=== PATIENT | female | born 1935 | race Caucasian/White ===

== ENCOUNTER 2017-10-03 09:30 | Outpatient (RCR) | payer MEDICARE, SELFPAY ==
[2017-09-26 10:22] VITALS: BP 144/84; PULSE 54; RESP 16; TEMP 37.1; BMI 22.4
--- NOTE | 2017-09-26 12:28 | PCM.WC.HP ---
(1) Traumatic open wound of left lower leg with delayed healing Status: Acute Current Visit: Yes Code(s): S81.802D - Unspecified open wound, left lower leg, subsequent encounter (2) Traumatic open wound of left lower leg with infection Status: Acute Current Visit: Yes Code(s): S81.802A - Unspecified open wound, left lower leg, initial encounter; L08.9 - Local infection of the skin and subcutaneous tissue, unspecified History of Present Illness Date of Service: 09/26/17 Chief Complaint: Follow-up left lower leg nonhealing ulcer from a fall, August 19. 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 L2 get down off the ladder and missed the last rung coming down on her left archer causing a huge avulsion laceration. Patient was seen by her family doctor and was put on Levaquin which she has finished and not really putting anything on the ulcer but a Band-Aid most of it is healed but the bottom half of the ulcer has not. Past Medical History Past Medical History: History of DVTs hypothyroidism hyperlipidemia insomnia D deficiency open ulcer left archer nonhealing Allergies/Adverse Reactions: Allergies No Known Allergies Allergy (Verified 04/23/17 02:39) Home Medications: Ambulatory Orders Medication Instructions Recorded Hydroxychloroquine [Plaquenil] 200 mg PO DAILYCM 07/23/13 Levothyroxine [Synthroid] 75 mcg PO DAILY 07/23/13 Pravastatin [Pravachol] 40 mg PO DAILY 07/23/13 Zolpidem Tartrate [Ambien] 5 mg PO DAILY PRN 07/23/13 Amlodipine [Norvasc] 5 mg PO DAILY 02/10/14 Calcium Carbonate/Vitamin D3 1 each PO DAILY 02/10/14 [Calcium 500-Vit D3 400 Tablet] Cholecalciferol (Vitamin D3) 5,000 unit PO DAILY 02/10/14 [Vitamin D3] Cyanocobalamin [Vitamin B12] 1,000 mcg PO DAILY@0800 02/10/14 Aspirin 325 mg PO BIDCM #60 tablet 02/23/14 Alendronate Sodium [Fosamax] 70 mg PO QWEEK 04/23/17 Biotin 5,000 mcg PO DAILY 04/23/17 Lives: Alone Smoking Status: Never smoker Tobacco Use: Non-smoker Alcohol: None Drugs: None Review of Systems Constitutional: Denies: Chills, Fever Eyes: Denies: Blurred vision, Drainage, Pain HEENT: Denies: Difficulty Hearing, Difficulty Swallowing, Sore Throat, Visual Changes Cardiovascular: Denies: Chest Pain, Palpitations, Syncope Respiratory: Denies: Cough, Shortness of Breath Gastrointestinal: Denies: Abdominal Pain, Nausea, Vomiting Genitourinary: Denies: Dysuria, Frequency Musculoskeletal: Denies: Joint Pain, Muscle pain Skin: Reports: - - Open wound left archer. Denies: Jaundice, Rash Neurological: Denies: Balance problems, Change in Speech, Difficulty swallowing, Focal weakness Psychiatric: Denies: Anxiety, Depression Endocrine: Denies: Change in Body Habitus Hematologic/ Lymphatic: Denies: Adenopathy - Physical Exam Vital Signs Temp Pulse Resp BP 98.8 F 54 L 16 144/84 H 09/26/17 10:22 09/26/17 10:22 09/26/17 10:22 09/26/17 10:22 General: Oriented x3, Cooperative, Well developed HEENT: Atraumatic, PERRLA Oral: Moist Mucosa Neck: Supple, No JVD Lungs: Clear to auscultation, Normal air movement Cardiovascular: Regular rate, Regular Rhythm Abdomen: Bowel Sounds Present, Soft, Non Tender, No Hepato-splenomegaly Extremities: No clubbing, No edema, - - Open ulcer left archer Wound Measurements and Assessment WC - Nurse 1 - General Ulcer Measurement Start: 09/26/17 09:47 Freq: Status: Active Protocol: Activity Type Activity Date Activity User E-Sign Co-Sign Detail Recorded Client Recorded Date Recorded By Document 09/26/17 10:22 DV [id number] 09/26/17 10:52 DV 09/26/17 10:22 Wound Center Nurse 1 [Ulcer Assessment Protocol: WC.WD.LOC] #1 Left Archer -Combined with other wound No -Current Size (cm) - Length 3.2 -Current Size (cm) - Width 1.4 -Current Size (cm) - Depth 0.1 -Total Square Cm 4.48 -Date of Last Picture (Recall this 09/26/17 field) -Photo Taken Yes -Epithelialization None Present -Tunneling No -Undermining/Tunneling No -Circular Undermining No -Classification - Thickness Full Thickness without Exposed Support Structure -Exudate Amt None Present (0 %) -Wound Margin Distinct, Outline Attached -Granulation Amt None Present (0 %) -Granulation Quality N/A -Slough/Fibrin Yes -Necrosis Amt Large (67-100%) -Necrotic Tissue Type Adherent Slough -Structure Exposed None/Limited to Skin Breakdown -Texture (Jennifer-wound Skin Appearance) No Abnormality Assessed -Moisture (Jennifer-wound Skin Appearance No Abnormality ) Assessed -Color (Jennifer-wound Skin Appearance) No Abnormality Assessed -Temperature (Jennifer-wound Skin No Abnormality Appearance) (Pt Warm) -Tenderness on Palpation (Jennifer-wound No Skin Appearance) -Ulcer Cleansing Rinsed/ Irrigated with Saline -Foul Odor after Cleansing No -Anesthetic Used 4% Lidocaine Solution [Edema Assessment] -Lower Limb Edema Present No -Right Calf (cm) 31.6 -Right Ankle (cm) 18.0 -Left Calf (cm) 32.2 -Left Ankle (cm) 18.0 WC - Nurse 2 - General Ulcer CM Notes Start: 09/26/17 09:47 Freq: Status: Active Protocol: Activity Type Activity Date Activity User E-Sign Co-Sign Detail Recorded Client Recorded Date Recorded By Document 09/26/17 11:07 MW [id number] 09/26/17 11:14 MW 09/26/17 11:07 Wound Center Nurse 2 [Procedure/Treatment] #1 Left Archer -Time 11:07 -Correct Patient Yes -Correct Side, Site, Position Yes -Correct Procedure Yes -Procedure Performed Yes -Type of Procedure Debridement -Clinical Debridement Subcutaneous -Post Debridement Size (cm) - Length 3.0 -Post Debridement Size (cm) - Width 1.2 -Post Debridement Size (cm) - Depth 0.1 -Total Square Cm 3.60 -Wound/Ulcer Outcome Not Healed -Ulcer Cleansing Rinsed/ Irrigated with Saline -Foul Odor after Cleansing No -Bioengineered Tissue No -Cetacaine [place] No -Bleeding Controlled with Pressure -Treatment Response Procedure Tolerated Well [See Physician Procedure note for Specifics] Pain Scale: 0-10 Numeric [Pain] -Is Patient Pain Free? Yes Musculoskeletal: No Tenderness to Palpation of Joints or Extremities Lymphatic: No Cervical, Supraclavicular, or Inguinal Adenopathy Neurological: Cranial nerves II-XII grossly intact, Neuro grossly intact Psych/Mental Status: Normal Affect, Appropriate, Alert and oriented to time, place, person, mood and affect Debridement Note Post-Debridement Measurements/Treatment WC - Nurse 2 - General Ulcer CM Notes Start: 09/26/17 09:47 Freq: Status: Active Protocol: Activity Type Activity Date Activity User E-Sign Co-Sign Detail Recorded Client Recorded Date Recorded By Document 09/26/17 11:07 MW [id number] 09/26/17 11:14 MW 09/26/17 11:07 Wound Center Nurse 2 #1 Left Archer -Time 11:07 -Correct Patient Yes -Correct Side, Site, Position Yes -Correct Procedure Yes -Procedure Performed Yes -Type of Procedure Debridement -Clinical Debridement Subcutaneous -Post Debridement Size (cm) - Length 3.0 -Post Debridement Size (cm) - Width 1.2 -Post Debridement Size (cm) - Depth 0.1 -Total Square Cm 3.60 -Wound/Ulcer Outcome Not Healed -Ulcer Cleansing Rinsed/ Irrigated with Saline -Foul Odor after Cleansing No -Bioengineered Tissue No -Cetacaine [place] No -Bleeding Controlled with Pressure -Treatment Response Procedure Tolerated Well Pain Scale: 0-10 Numeric Is Patient Pain Free? Yes Wound debrided: Archer ulcer Type of Debridement: Excisional debridement Anesthesia Used: 5% Lidocaine Gel Depth: Down to and including healthy tissue Percentage of wound debrided: 100 Instrument Used: 5mm curette Tissue Removed: Scab and fibrin Severity: Limited To Skin Breakdown Amount of bleeding with debridement: Mild Bleeding Controlled with: Compression and gauze Patient tolerated procedure well Assessment/Plan Active Problems Traumatic open wound of left lower leg with delayed healing (Acute) Traumatic open wound of left lower leg with infection (Acute) Assessment: Open ulcer left archer area. Infected ulcer. Hypothyroidism Plan: Wash leg with Hibiclens apply Aquacel silver moistened with Adaptic gauze and tape double layer Tubigrip. Follow-up in 1 week
--- NOTE | 2017-09-26 12:35 | HP.PCM_ITS ---
(1) Traumatic open wound of left lower leg with delayed healing Status: Acute Current Visit: Yes Code(s): S81.802D - Unspecified open wound , left lower leg, subsequent encounter (2) Traumatic open wound of left lower leg with infection Status: Acute Current Visit: Yes Code(s): S81.802A - Unspecified open wound , left lower leg, initial encounter; L08.9 - Local infection of the skin and subcutaneous tissue, unspecified History of Present Illness Date of Service: 09/26/17 Chief Complaint: Follow-up left lower leg nonhealing ulcer from a fall, August 19. 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 L2 get down off the ladder and missed the last rung coming down on her left archer causing a huge avulsion laceration. Patient was seen by her family doctor and was put on Levaquin which she has finished and not really putting anything on the ulcer but a Band- Aid most of it is healed but the bottom half of the ulcer has not. Past Medical History Past Medical History: History of DVTs hypothyroidism hyperlipidemia insomnia D deficiency open ulcer left archer nonhealing Allergies/Adverse Reactions: Allergies No Known Allergies Allergy (Verified 04/23/17 02:39) Home Medications: Ambulatory Orders Medication Instructions Recorded Hydroxychloroquine [Plaquenil] 200 mg PO DAILYCM 07/23/13 Levothyroxine [Synthroid] 75 mcg PO DAILY 07/23/13 Pravastatin [Pravachol] 40 mg PO DAILY 07/23/13 Zolpidem Tartrate [Ambien] 5 mg PO DAILY PRN 07/23/13 Amlodipine [Norvasc] 5 mg PO DAILY 02/10/14 Calcium Carbonate/Vitamin D3 1 each PO DAILY 02/10/14 [Calcium 500-Vit D3 400 Tablet] Cholecalciferol (Vitamin D3) 5,000 unit PO DAILY 02/10/14 [Vitamin D3] Cyanocobalamin [Vitamin B12] 1,000 mcg PO DAILY@0800 02/10/14 Aspirin 325 mg PO BIDCM #60 tablet 02/23/14 Alendronate Sodium [Fosamax] 70 mg PO QWEEK 04/23/17 Biotin 5,000 mcg PO DAILY 04/23/17 Lives: Alone Smoking Status: Never smoker Tobacco Use: Non-smoker Alcohol: None Drugs: None Review of Systems Constitutional: Denies: Chills, Fever Eyes: Denies: Blurred vision, Drainage, Pain HEENT: Denies: Difficulty Hearing, Difficulty Swallowing, Sore Throat, Visual Changes Cardiovascular: Denies: Chest Pain, Palpitations, Syncope Respiratory: Denies: Cough, Shortness of Breath Gastrointestinal: Denies: Abdominal Pain, Nausea, Vomiting Genitourinary: Denies: Dysuria, Frequency Musculoskeletal: Denies: Joint Pain, Muscle pain Skin: Reports: - - Open wound left archer. Denies: Jaundice, Rash Neurological: Denies: Balance problems, Change in Speech, Difficulty swallowing , Focal weakness Psychiatric: Denies: Anxiety, Depression Endocrine: Denies: Change in Body Habitus Hematologic/ Lymphatic: Denies: Adenopathy - Physical Exam Vital Signs Temp Pulse Resp BP 98.8 F 54 L 16 144/84 H 09/26/17 10:22 09/26/17 10:22 09/26/17 10:22 09/26/17 10:22 General: Oriented x3, Cooperative, Well developed HEENT: Atraumatic, PERRLA Oral: Moist Mucosa Neck: Supple, No JVD Lungs: Clear to auscultation, Normal air movement Cardiovascular: Regular rate, Regular Rhythm Abdomen: Bowel Sounds Present, Soft, Non Tender, No Hepato-splenomegaly Extremities: No clubbing, No edema, - - Open ulcer left archer Wound Measurements and Assessment WC - Nurse 1 - General Ulcer Measurement Start: 09/26/17 09:47 Freq: Status: Active Protocol: Activity Type Activity Date Activity User E-Sign Co-Sign Detail Recorded Client Recorded Date Recorded By Document 09/26/17 10:22 DV [id number] 09/26/17 10:52 DV 09/26/17 10:22 Wound Center Nurse 1 [Ulcer Assessment Protocol: WC.WD.LOC] #1 Left Archer -Combined with other wound No -Current Size (cm) - Length 3.2 -Current Size (cm) - Width 1.4 -Current Size (cm) - Depth 0.1 -Total Square Cm 4.48 -Date of Last Picture (Recall this 09/26/17 field) -Photo Taken Yes -Epithelialization None Present -Tunneling No -Undermining/Tunneling No -Circular Undermining No -Classification - Thickness Full Thickness without Exposed Support Structure -Exudate Amt None Present (0 %) -Wound Margin Distinct, Outline Attached -Granulation Amt None Present (0 %) -Granulation Quality N/A -Slough/Fibrin Yes -Necrosis Amt Large (67-100%) -Necrotic Tissue Type Adherent Slough -Structure Exposed None/Limited to Skin Breakdown -Texture (Jennifer-wound Skin Appearance) No Abnormality Assessed -Moisture (Jennifer-wound Skin Appearance No Abnormality ) Assessed -Color (Jennifer-wound Skin Appearance) No Abnormality Assessed -Temperature (Jennifer-wound Skin No Abnormality Appearance) (Pt Warm) -Tenderness on Palpation (Jennifer-wound No Skin Appearance) -Ulcer Cleansing Rinsed/ Irrigated with Saline -Foul Odor after Cleansing No -Anesthetic Used 4% Lidocaine Solution [Edema Assessment] -Lower Limb Edema Present No -Right Calf (cm) 31.6 -Right Ankle (cm) 18.0 -Left Calf (cm) 32.2 -Left Ankle (cm) 18.0 WC - Nurse 2 - General Ulcer CM Notes Start: 09/26/17 09:47 Freq: Status: Active Protocol: Activity Type Activity Date Activity User E-Sign Co-Sign Detail Recorded Client Recorded Date Recorded By Document 09/26/17 11:07 MW [id number] 09/26/17 11:14 MW 09/26/17 11:07 Wound Center Nurse 2 [Procedure/Treatment] #1 Left Archer -Time 11:07 -Correct Patient Yes -Correct Side, Site, Position Yes -Correct Procedure Yes -Procedure Performed Yes -Type of Procedure Debridement -Clinical Debridement Subcutaneous -Post Debridement Size (cm) - Length 3.0 -Post Debridement Size (cm) - Width 1.2 -Post Debridement Size (cm) - Depth 0.1 -Total Square Cm 3.60 -Wound/Ulcer Outcome Not Healed -Ulcer Cleansing Rinsed/ Irrigated with Saline -Foul Odor after Cleansing No -Bioengineered Tissue No -Cetacaine [place] No -Bleeding Controlled with Pressure -Treatment Response Procedure Tolerated Well [See Physician Procedure note for Specifics] Pain Scale: 0-10 Numeric [Pain] -Is Patient Pain Free? Yes Musculoskeletal: No Tenderness to Palpation of Joints or Extremities Lymphatic: No Cervical, Supraclavicular, or Inguinal Adenopathy Neurological: Cranial nerves II-XII grossly intact, Neuro grossly intact Psych/Mental Status: Normal Affect, Appropriate, Alert and oriented to time, place, person, mood and affect Debridement Note Post-Debridement Measurements/Treatment WC - Nurse 2 - General Ulcer CM Notes Start: 09/26/17 09:47 Freq: Status: Active Protocol: Activity Type Activity Date Activity User E-Sign Co-Sign Detail Recorded Client Recorded Date Recorded By Document 09/26/17 11:07 MW [id number] 09/26/17 11:14 MW 09/26/17 11:07 Wound Center Nurse 2 #1 Left Archer -Time 11:07 -Correct Patient Yes -Correct Side, Site, Position Yes -Correct Procedure Yes -Procedure Performed Yes -Type of Procedure Debridement -Clinical Debridement Subcutaneous -Post Debridement Size (cm) - Length 3.0 -Post Debridement Size (cm) - Width 1.2 -Post Debridement Size (cm) - Depth 0.1 -Total Square Cm 3.60 -Wound/Ulcer Outcome Not Healed -Ulcer Cleansing Rinsed/ Irrigated with Saline -Foul Odor after Cleansing No -Bioengineered Tissue No -Cetacaine [place] No -Bleeding Controlled with Pressure -Treatment Response Procedure Tolerated Well Pain Scale: 0-10 Numeric Is Patient Pain Free? Yes Wound debrided: Archer ulcer Type of Debridement: Excisional debridement Anesthesia Used: 5% Lidocaine Gel Depth: Down to and including healthy tissue Percentage of wound debrided: 100 Instrument Used: 5mm curette Tissue Removed: Scab and fibrin Severity: Limited To Skin Breakdown Amount of bleeding with debridement: Mild Bleeding Controlled with: Compression and gauze Patient tolerated procedure well Assessment/Plan Active Problems Traumatic open wound of left lower leg with delayed healing (Acute) Traumatic open wound of left lower leg with infection (Acute) Assessment: Open ulcer left archer area. Infected ulcer. Hypothyroidism Plan: Wash leg with Hibiclens apply Aquacel silver moistened with Adaptic gauze and tape double layer Tubigrip. Follow-up in 1 week
[2017-10-03 09:19] VITALS: BP 145/77; PULSE 68; RESP 16; TEMP 35; BMI 22.4
--- NOTE | 2017-10-03 10:01 | PCM.WC.PN ---
(1) Traumatic open wound of left lower leg with delayed healing Status: Acute Current Visit: Yes Code(s): S81.802D - Unspecified open wound, left lower leg, subsequent encounter (2) Traumatic open wound of left lower leg with infection Status: Acute Current Visit: Yes Code(s): S81.802A - Unspecified open wound, left lower leg, initial encounter; L08.9 - Local infection of the skin and subcutaneous tissue, unspecified Type of Wound Date of Service: 10/03/17 Chief Complaint: Follow-up left lower leg nonhealing ulcer from a fall, August 19. 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 L2 get down off the ladder and missed the last rung coming down on her left archer causing a huge avulsion laceration. Patient was seen by her family doctor and was put on Levaquin which she has finished and not really putting anything on the ulcer but a Band-Aid most of it is healed but the bottom half of the ulcer has not. Progress of Wound: The cultures came back negative for growth. The ulcer appears to be getting smaller on the current medication. Little slough that was in the ulcer was easily debrided out without pain today. We will switch her over to Promogran for finishing closing on the ulcer. - Physical Exam Vital Signs Temp Pulse Resp BP 95 F L 68 16 145/77 H 10/03/17 09:19 10/03/17 09:19 10/03/17 09:19 10/03/17 09:19 General: Oriented x3, Cooperative, Well developed HEENT: Atraumatic, PERRLA Oral: Moist Mucosa Neck: Supple, No JVD Lungs: Clear to auscultation, Normal air movement Cardiovascular: Regular rate, Regular Rhythm Abdomen: Bowel Sounds Present, Soft, Non Tender, No Hepato-splenomegaly Extremities: No clubbing, No edema Wound Measurements and Assessment WC - Nurse 1 - General Ulcer Measurement Start: 09/26/17 09:47 Freq: Status: Active Protocol: Activity Type Activity Date Activity User E-Sign Co-Sign Detail Recorded Client Recorded Date Recorded By Document 10/03/17 09:19 DL [id number] 10/03/17 09:26 DL 10/03/17 09:19 Wound Center Nurse 1 [Ulcer Assessment Protocol: .WD.LOC] #1 Left Archer -Current Size (cm) - Length 2.6 -Current Size (cm) - Width 0.9 -Current Size (cm) - Depth 0.1 -Total Square Cm 2.34 -Photo Taken No -Epithelialization Small 1-33% -Exudate Amt Small (1-33%) -Exudate Type Serosanguineous -Wound Margin Distinct, Outline Attached -Granulation Amt Medium (34-66%) -Granulation Quality Red -Necrosis Amt Medium (34-66%) -Necrotic Tissue Type Adherent Slough -Structure Exposed N/A -Texture (Jennifer-wound Skin Appearance) Scarring -Moisture (Jennifer-wound Skin Appearance No Abnormality ) -Color (Jennifer-wound Skin Appearance) No Abnormality -Temperature (Jennifer-wound Skin No Abnormality Appearance) (Pt Warm) -Ulcer Cleansing Rinsed/ Irrigated with Saline -Foul Odor after Cleansing No -Anesthetic Used 4% Lidocaine Solution [Edema Assessment] -Left Calf (cm) 30 -Left Ankle (cm) 16.5 - Nurse 2 - General Ulcer CM Notes Start: 09/26/17 09:47 Freq: Status: Active Protocol: Activity Type Activity Date Activity User E-Sign Co-Sign Detail Recorded Client Recorded Date Recorded By Document 10/03/17 09:34 MW [id number] 10/03/17 09:36 MW 10/03/17 09:34 Wound Center Nurse 2 [Procedure/Treatment] #1 Left Archer -Time 09:35 -Correct Patient Yes -Correct Side, Site, Position Yes -Correct Procedure Yes -Procedure Performed Yes -Type of Procedure Debridement -Clinical Debridement Subcutaneous -Post Debridement Size (cm) - Length 2.4 -Post Debridement Size (cm) - Width 1.1 -Post Debridement Size (cm) - Depth 0.2 -Total Square Cm 2.64 -Wound/Ulcer Outcome Not Healed -Ulcer Cleansing Rinsed/ Irrigated with Saline -Foul Odor after Cleansing No -Bioengineered Tissue No -Cetacaine [place] No -Bleeding Controlled with Pressure -Treatment Response Procedure Tolerated Well [See Physician Procedure note for Specifics] Pain Scale: 0-10 Numeric [Pain] -Is Patient Pain Free? Yes Musculoskeletal: No Tenderness to Palpation of Joints or Extremities Lymphatic: No Cervical, Supraclavicular, or Inguinal Adenopathy Neurological: Cranial nerves II-XII grossly intact, Neuro grossly intact Psych/Mental Status: Normal Affect, Appropriate, Alert and oriented to time, place, person, mood and affect Debridement Note Post-Debridement Measurements/Treatment WC - Nurse 2 - General Ulcer CM Notes Start: 09/26/17 09:47 Freq: Status: Active Protocol: Activity Type Activity Date Activity User E-Sign Co-Sign Detail Recorded Client Recorded Date Recorded By Document 09/26/17 11:07 MW [id number] 09/26/17 11:14 MW Document 10/03/17 09:34 MW [id number] 10/03/17 09:36 MW 09/26/17 10/03/17 11:07 09:34 Wound Center Nurse 2 #1 Left Archer -Time 11:07 09:35 -Correct Patient Yes Yes -Correct Side, Site, Position Yes Yes -Correct Procedure Yes Yes -Procedure Performed Yes Yes -Type of Procedure Debridement Debridement -Clinical Debridement Subcutaneous Subcutaneous -Post Debridement Size (cm) - Length 3.0 2.4 -Post Debridement Size (cm) - Width 1.2 1.1 -Post Debridement Size (cm) - Depth 0.1 0.2 -Total Square Cm 3.60 2.64 -Wound/Ulcer Outcome Not Healed Not Healed -Ulcer Cleansing Rinsed/ Rinsed/ Irrigated with Irrigated with Saline Saline -Foul Odor after Cleansing No No -Bioengineered Tissue No No -Cetacaine [place] No No -Bleeding Controlled with Pressure Pressure -Treatment Response Procedure Procedure Tolerated Well Tolerated Well Pain Scale: 0-10 Numeric Is Patient Pain Free? Yes Yes Wound debrided: Left archer ulcer Type of Debridement: Excisional debridement Anesthesia Used: 5% Lidocaine Gel Depth: Down to and including healthy tissue, in the subcutaneous layer Percentage of wound debrided: 100 Instrument Used: 5mm curette Tissue Removed: Slough and fibrin Severity: Limited To Skin Breakdown Amount of bleeding with debridement: Mild Bleeding Controlled with: Pressure Patient tolerated procedure well Assessment/Plan Active Problems Traumatic open wound of left lower leg with delayed healing (Acute) Traumatic open wound of left lower leg with infection (Acute) Assessment: Open ulcer left archer area. Infected ulcer. Hypothyroidism Plan: Wash leg with Hibiclens apply Promogran moistened with Adaptic gauze every other day and tape double layer Tubigrip. Follow-up in 1 week
--- NOTE | 2017-10-03 10:04 | PN.PCM_ITS ---
(1) Traumatic open wound of left lower leg with delayed healing Status: Acute Current Visit: Yes Code(s): S81.802D - Unspecified open wound , left lower leg, subsequent encounter (2) Traumatic open wound of left lower leg with infection Status: Acute Current Visit: Yes Code(s): S81.802A - Unspecified open wound , left lower leg, initial encounter; L08.9 - Local infection of the skin and subcutaneous tissue, unspecified Type of Wound Date of Service: 10/03/17 Chief Complaint: Follow-up left lower leg nonhealing ulcer from a fall, August 19. 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 L2 get down off the ladder and missed the last rung coming down on her left archer causing a huge avulsion laceration. Patient was seen by her family doctor and was put on Levaquin which she has finished and not really putting anything on the ulcer but a Band- Aid most of it is healed but the bottom half of the ulcer has not. Progress of Wound: The cultures came back negative for growth. The ulcer appears to be getting smaller on the current medication. Little slough that was in the ulcer was easily debrided out without pain today. We will switch her over to Promogran for finishing closing on the ulcer. - Physical Exam Vital Signs Temp Pulse Resp BP 95 F L 68 16 145/77 H 10/03/17 09:19 10/03/17 09:19 10/03/17 09:19 10/03/17 09:19 General: Oriented x3, Cooperative, Well developed HEENT: Atraumatic, PERRLA Oral: Moist Mucosa Neck: Supple, No JVD Lungs: Clear to auscultation, Normal air movement Cardiovascular: Regular rate, Regular Rhythm Abdomen: Bowel Sounds Present, Soft, Non Tender, No Hepato-splenomegaly Extremities: No clubbing, No edema Wound Measurements and Assessment WC - Nurse 1 - General Ulcer Measurement Start: 09/26/17 09:47 Freq: Status: Active Protocol: Activity Type Activity Date Activity User E-Sign Co-Sign Detail Recorded Client Recorded Date Recorded By Document 10/03/17 09:19 DL [id number] 10/03/17 09:26 DL 10/03/17 09:19 Wound Center Nurse 1 [Ulcer Assessment Protocol: .WD.LOC] #1 Left Archer -Current Size (cm) - Length 2.6 -Current Size (cm) - Width 0.9 -Current Size (cm) - Depth 0.1 -Total Square Cm 2.34 -Photo Taken No -Epithelialization Small 1-33% -Exudate Amt Small (1-33%) -Exudate Type Serosanguineous -Wound Margin Distinct, Outline Attached -Granulation Amt Medium (34-66%) -Granulation Quality Red -Necrosis Amt Medium (34-66%) -Necrotic Tissue Type Adherent Slough -Structure Exposed N/A -Texture (Jennifer-wound Skin Appearance) Scarring -Moisture (Jennifer-wound Skin Appearance No Abnormality ) -Color (Jennifer-wound Skin Appearance) No Abnormality -Temperature (Jennifer-wound Skin No Abnormality Appearance) (Pt Warm) -Ulcer Cleansing Rinsed/ Irrigated with Saline -Foul Odor after Cleansing No -Anesthetic Used 4% Lidocaine Solution [Edema Assessment] -Left Calf (cm) 30 -Left Ankle (cm) 16.5 - Nurse 2 - General Ulcer CM Notes Start: 09/26/17 09:47 Freq: Status: Active Protocol: Activity Type Activity Date Activity User E-Sign Co-Sign Detail Recorded Client Recorded Date Recorded By Document 10/03/17 09:34 MW [id number] 10/03/17 09:36 MW 10/03/17 09:34 Wound Center Nurse 2 [Procedure/Treatment] #1 Left Archer -Time 09:35 -Correct Patient Yes -Correct Side, Site, Position Yes -Correct Procedure Yes -Procedure Performed Yes -Type of Procedure Debridement -Clinical Debridement Subcutaneous -Post Debridement Size (cm) - Length 2.4 -Post Debridement Size (cm) - Width 1.1 -Post Debridement Size (cm) - Depth 0.2 -Total Square Cm 2.64 -Wound/Ulcer Outcome Not Healed -Ulcer Cleansing Rinsed/ Irrigated with Saline -Foul Odor after Cleansing No -Bioengineered Tissue No -Cetacaine [place] No -Bleeding Controlled with Pressure -Treatment Response Procedure Tolerated Well [See Physician Procedure note for Specifics] Pain Scale: 0-10 Numeric [Pain] -Is Patient Pain Free? Yes Musculoskeletal: No Tenderness to Palpation of Joints or Extremities Lymphatic: No Cervical, Supraclavicular, or Inguinal Adenopathy Neurological: Cranial nerves II-XII grossly intact, Neuro grossly intact Psych/Mental Status: Normal Affect, Appropriate, Alert and oriented to time, place, person, mood and affect Debridement Note Post-Debridement Measurements/Treatment WC - Nurse 2 - General Ulcer CM Notes Start: 09/26/17 09:47 Freq: Status: Active Protocol: Activity Type Activity Date Activity User E-Sign Co-Sign Detail Recorded Client Recorded Date Recorded By Document 09/26/17 11:07 MW [id number] 09/26/17 11:14 MW Document 10/03/17 09:34 MW [id number] 10/03/17 09:36 MW 09/26/17 10/03/17 11:07 09:34 Wound Center Nurse 2 #1 Left Archer -Time 11:07 09:35 -Correct Patient Yes Yes -Correct Side, Site, Position Yes Yes -Correct Procedure Yes Yes -Procedure Performed Yes Yes -Type of Procedure Debridement Debridement -Clinical Debridement Subcutaneous Subcutaneous -Post Debridement Size (cm) - Length 3.0 2.4 -Post Debridement Size (cm) - Width 1.2 1.1 -Post Debridement Size (cm) - Depth 0.1 0.2 -Total Square Cm 3.60 2.64 -Wound/Ulcer Outcome Not Healed Not Healed -Ulcer Cleansing Rinsed/ Rinsed/ Irrigated with Irrigated with Saline Saline -Foul Odor after Cleansing No No -Bioengineered Tissue No No -Cetacaine [place] No No -Bleeding Controlled with Pressure Pressure -Treatment Response Procedure Procedure Tolerated Well Tolerated Well Pain Scale: 0-10 Numeric Is Patient Pain Free? Yes Yes Wound debrided: Left archer ulcer Type of Debridement: Excisional debridement Anesthesia Used: 5% Lidocaine Gel Depth: Down to and including healthy tissue, in the subcutaneous layer Percentage of wound debrided: 100 Instrument Used: 5mm curette Tissue Removed: Slough and fibrin Severity: Limited To Skin Breakdown Amount of bleeding with debridement: Mild Bleeding Controlled with: Pressure Patient tolerated procedure well Assessment/Plan Active Problems Traumatic open wound of left lower leg with delayed healing (Acute) Traumatic open wound of left lower leg with infection (Acute) Assessment: Open ulcer left archer area. Infected ulcer. Hypothyroidism Plan: Wash leg with Hibiclens apply Promogran moistened with Adaptic gauze every other day and tape double layer Tubigrip. Follow-up in 1 week
== END 2017-10-05 23:59 ==
LOC: WC 09:30
PROVIDERS: Family Provider Family Medicine Geriatric Medicine; PCP Family Medicine Geriatric Medicine; Visit Provider Nurse Practitioner
DX: S81.812A Laceration without foreign body, left lower leg, initial encounter (principal); W11.XXXA Fall on and from ladder, initial encounter; Y93.89 Activity, other specified; Y92.9 Unspecified place or not applicable; Z86.718 Personal history of other venous thrombosis and embolism; E78.5 Hyperlipidemia, unspecified; E03.9 Hypothyroidism, unspecified; Z79.899 Other long term (current) drug therapy; E55.9 Vitamin D deficiency, unspecified
CPT/HCPCS: 11042; 87070; 87075; 87205; 99213; G0463

== ENCOUNTER 2017-10-17 09:30 | Outpatient (RCR) | payer MEDICARE, SELFPAY ==
[2017-10-06 01:45] VITALS: BP 145/77; PULSE 68; RESP 16; TEMP 35; BMI 22.4
[2017-10-10 11:23] VITALS: BP 109/101; RESP 16; TEMP 35.4; BMI 22.4
--- NOTE | 2017-10-10 12:05 | PCM.WC.PN ---
(1) Traumatic open wound of left lower leg with delayed healing Status: Acute Current Visit: No Code(s): S81.802D - Unspecified open wound, left lower leg, subsequent encounter Type of Wound Date of Service: 10/10/17 Chief Complaint: Follow-up left lower leg nonhealing ulcer from a fall, August 19. 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 L2 get down off the ladder and missed the last rung coming down on her left archer causing a huge avulsion laceration. Patient was seen by her family doctor and was put on Levaquin which she has finished and not really putting anything on the ulcer but a Band-Aid most of it is healed but the bottom half of the ulcer has not. Progress of Wound: The cultures came back negative for growth. The ulcer appears to be getting smaller on the current medication. No slough today doing well using the Promogran for finishing the ulcer. - Physical Exam Vital Signs Temp Pulse Resp BP 95.7 F L 68 16 109/101 H 10/10/17 11:23 10/06/17 01:45 10/10/17 11:23 10/10/17 11:23 General: Oriented x3, Cooperative, Well developed HEENT: Atraumatic, PERRLA Oral: Moist Mucosa Neck: Supple, No JVD Lungs: Clear to auscultation, Normal air movement Cardiovascular: Regular rate, Regular Rhythm Abdomen: Bowel Sounds Present, Soft, Non Tender, No Hepato-splenomegaly Extremities: No clubbing, No edema, - - Left archer ulcer Wound Measurements and Assessment - Nurse 1 - General Ulcer Measurement Start: 10/10/17 11:23 Freq: Status: Active Protocol: Activity Type Activity Date Activity User E-Sign Co-Sign Detail Recorded Client Recorded Date Recorded By Document 10/10/17 11:23 [facility] [id number] 10/10/17 11:36 [facility] 10/10/17 11:23 Wound Center Nurse 1 [Ulcer Assessment Protocol: LEDY.WD.LOC] #1 Left Archer -Combined with other wound No -Current Size (cm) - Length 0.9 -Current Size (cm) - Width 0.3 -Current Size (cm) - Depth 0.1 -Total Square Cm 0.27 -Date of Last Picture (Recall this 10/10/17 field) -Photo Taken Yes -Epithelialization Small 1-33% -Tunneling No -Undermining/Tunneling No -Exudate Amt Small (1-33%) -Exudate Type Serous -Wound Margin Distinct, Outline Attached -Granulation Amt Large (67-100%) -Granulation Quality Red -Slough/Fibrin Yes -Necrosis Amt Small (1-33%) -Necrotic Tissue Type Adherent Slough -Structure Exposed None/Limited to Skin Breakdown -Texture (Jennifer-wound Skin Appearance) Scarring -Moisture (Jennifer-wound Skin Appearance Dry/Scaly ) -Color (Jennifer-wound Skin Appearance) Assessed -Temperature (Jennifer-wound Skin No Abnormality Appearance) (Pt Warm) -Tenderness on Palpation (Jennifer-wound No Skin Appearance) -Ulcer Cleansing Rinsed/ Irrigated with Saline -Foul Odor after Cleansing No -Anesthetic Used 5% Lidocaine Gel [Edema Assessment] -Lower Limb Edema Present No -Left Calf (cm) 31.9 -Left Ankle (cm) 18.2 WC - Nurse 2 - General Ulcer CM Notes Start: 10/10/17 11:23 Freq: Status: Active Protocol: Activity Type Activity Date Activity User E-Sign Co-Sign Detail Recorded Client Recorded Date Recorded By Document 10/10/17 11:51 MW [id number] 10/10/17 11:55 MW 10/10/17 11:51 Wound Center Nurse 2 [Procedure/Treatment] #1 Left Archer -Time 11:52 -Correct Patient Yes -Correct Side, Site, Position Yes -Correct Procedure Yes -Procedure Performed Yes -Type of Procedure Debridement -Clinical Debridement Subcutaneous -Post Debridement Size (cm) - Length 1.2 -Post Debridement Size (cm) - Width 0.4 -Post Debridement Size (cm) - Depth 0.1 -Total Square Cm 0.48 -Wound/Ulcer Outcome Not Healed -Ulcer Cleansing Rinsed/ Irrigated with Saline -Foul Odor after Cleansing No -Bioengineered Tissue No -Cetacaine [place] No -Bleeding Controlled with Pressure -Treatment Response Procedure Tolerated Well [See Physician Procedure note for Specifics] Pain Scale: 0-10 Numeric [Pain] -Is Patient Pain Free? Yes Musculoskeletal: No Tenderness to Palpation of Joints or Extremities Lymphatic: No Cervical, Supraclavicular, or Inguinal Adenopathy Neurological: Cranial nerves II-XII grossly intact, Neuro grossly intact Psych/Mental Status: Normal Affect, Appropriate Debridement Note Post-Debridement Measurements/Treatment WC - Nurse 2 - General Ulcer CM Notes Start: 10/10/17 11:23 Freq: Status: Active Protocol: Activity Type Activity Date Activity User E-Sign Co-Sign Detail Recorded Client Recorded Date Recorded By Document 10/10/17 11:51 MW [id number] 10/10/17 11:55 MW 10/10/17 11:51 Wound Center Nurse 2 #1 Left Archer -Time 11:52 -Correct Patient Yes -Correct Side, Site, Position Yes -Correct Procedure Yes -Procedure Performed Yes -Type of Procedure Debridement -Clinical Debridement Subcutaneous -Post Debridement Size (cm) - Length 1.2 -Post Debridement Size (cm) - Width 0.4 -Post Debridement Size (cm) - Depth 0.1 -Total Square Cm 0.48 -Wound/Ulcer Outcome Not Healed -Ulcer Cleansing Rinsed/ Irrigated with Saline -Foul Odor after Cleansing No -Bioengineered Tissue No -Cetacaine [place] No -Bleeding Controlled with Pressure -Treatment Response Procedure Tolerated Well Pain Scale: 0-10 Numeric Is Patient Pain Free? Yes Wound debrided: Archer ulcer Type of Debridement: Excisional debridement Anesthesia Used: 5% Lidocaine Gel Depth: Down to and including healthy tissue, in the subcutaneous layer Percentage of wound debrided: 100 Instrument Used: 3mm curette Tissue Removed: Devitalized tissue and fibrin Severity: Limited To Skin Breakdown Amount of bleeding with debridement: Mild Bleeding Controlled with: Compression and gauze Patient tolerated procedure well Assessment/Plan Assessment: Open ulcer left archer area. Hypothyroidism Plan: Wash leg with Hibiclens apply Promogran moistened with Adaptic gauze every other day and tape double layer Tubigrip. Follow-up in 1 week
--- NOTE | 2017-10-10 12:08 | PN.PCM_ITS ---
(1) Traumatic open wound of left lower leg with delayed healing Status: Acute Current Visit: No Code(s): S81.802D - Unspecified open wound, left lower leg, subsequent encounter Type of Wound Date of Service: 10/10/17 Chief Complaint: Follow-up left lower leg nonhealing ulcer from a fall, August 19. 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 L2 get down off the ladder and missed the last rung coming down on her left archer causing a huge avulsion laceration. Patient was seen by her family doctor and was put on Levaquin which she has finished and not really putting anything on the ulcer but a Band- Aid most of it is healed but the bottom half of the ulcer has not. Progress of Wound: The cultures came back negative for growth. The ulcer appears to be getting smaller on the current medication. No slough today doing well using the Promogran for finishing the ulcer. - Physical Exam Vital Signs Temp Pulse Resp BP 95.7 F L 68 16 109/101 H 10/10/17 11:23 10/06/17 01:45 10/10/17 11:23 10/10/17 11:23 General: Oriented x3, Cooperative, Well developed HEENT: Atraumatic, PERRLA Oral: Moist Mucosa Neck: Supple, No JVD Lungs: Clear to auscultation, Normal air movement Cardiovascular: Regular rate, Regular Rhythm Abdomen: Bowel Sounds Present, Soft, Non Tender, No Hepato-splenomegaly Extremities: No clubbing, No edema, - - Left archer ulcer Wound Measurements and Assessment - Nurse 1 - General Ulcer Measurement Start: 10/10/17 11:23 Freq: Status: Active Protocol: Activity Type Activity Date Activity User E-Sign Co-Sign Detail Recorded Client Recorded Date Recorded By Document 10/10/17 11:23 [facility] [id number] 10/10/17 11:36 [facility] 10/10/17 11:23 Wound Center Nurse 1 [Ulcer Assessment Protocol: LEDY.WD.LOC] #1 Left Archer -Combined with other wound No -Current Size (cm) - Length 0.9 -Current Size (cm) - Width 0.3 -Current Size (cm) - Depth 0.1 -Total Square Cm 0.27 -Date of Last Picture (Recall this 10/10/17 field) -Photo Taken Yes -Epithelialization Small 1-33% -Tunneling No -Undermining/Tunneling No -Exudate Amt Small (1-33%) -Exudate Type Serous -Wound Margin Distinct, Outline Attached -Granulation Amt Large (67-100%) -Granulation Quality Red -Slough/Fibrin Yes -Necrosis Amt Small (1-33%) -Necrotic Tissue Type Adherent Slough -Structure Exposed None/Limited to Skin Breakdown -Texture (Jennifer-wound Skin Appearance) Scarring -Moisture (Jennifer-wound Skin Appearance Dry/Scaly ) -Color (Jennifer-wound Skin Appearance) Assessed -Temperature (Jennifer-wound Skin No Abnormality Appearance) (Pt Warm) -Tenderness on Palpation (Jennifer-wound No Skin Appearance) -Ulcer Cleansing Rinsed/ Irrigated with Saline -Foul Odor after Cleansing No -Anesthetic Used 5% Lidocaine Gel [Edema Assessment] -Lower Limb Edema Present No -Left Calf (cm) 31.9 -Left Ankle (cm) 18.2 WC - Nurse 2 - General Ulcer CM Notes Start: 10/10/17 11:23 Freq: Status: Active Protocol: Activity Type Activity Date Activity User E-Sign Co-Sign Detail Recorded Client Recorded Date Recorded By Document 10/10/17 11:51 MW [id number] 10/10/17 11:55 MW 10/10/17 11:51 Wound Center Nurse 2 [Procedure/Treatment] #1 Left Archer -Time 11:52 -Correct Patient Yes -Correct Side, Site, Position Yes -Correct Procedure Yes -Procedure Performed Yes -Type of Procedure Debridement -Clinical Debridement Subcutaneous -Post Debridement Size (cm) - Length 1.2 -Post Debridement Size (cm) - Width 0.4 -Post Debridement Size (cm) - Depth 0.1 -Total Square Cm 0.48 -Wound/Ulcer Outcome Not Healed -Ulcer Cleansing Rinsed/ Irrigated with Saline -Foul Odor after Cleansing No -Bioengineered Tissue No -Cetacaine [place] No -Bleeding Controlled with Pressure -Treatment Response Procedure Tolerated Well [See Physician Procedure note for Specifics] Pain Scale: 0-10 Numeric [Pain] -Is Patient Pain Free? Yes Musculoskeletal: No Tenderness to Palpation of Joints or Extremities Lymphatic: No Cervical, Supraclavicular, or Inguinal Adenopathy Neurological: Cranial nerves II-XII grossly intact, Neuro grossly intact Psych/Mental Status: Normal Affect, Appropriate Debridement Note Post-Debridement Measurements/Treatment WC - Nurse 2 - General Ulcer CM Notes Start: 10/10/17 11:23 Freq: Status: Active Protocol: Activity Type Activity Date Activity User E-Sign Co-Sign Detail Recorded Client Recorded Date Recorded By Document 10/10/17 11:51 MW [id number] 10/10/17 11:55 MW 10/10/17 11:51 Wound Center Nurse 2 #1 Left Archer -Time 11:52 -Correct Patient Yes -Correct Side, Site, Position Yes -Correct Procedure Yes -Procedure Performed Yes -Type of Procedure Debridement -Clinical Debridement Subcutaneous -Post Debridement Size (cm) - Length 1.2 -Post Debridement Size (cm) - Width 0.4 -Post Debridement Size (cm) - Depth 0.1 -Total Square Cm 0.48 -Wound/Ulcer Outcome Not Healed -Ulcer Cleansing Rinsed/ Irrigated with Saline -Foul Odor after Cleansing No -Bioengineered Tissue No -Cetacaine [place] No -Bleeding Controlled with Pressure -Treatment Response Procedure Tolerated Well Pain Scale: 0-10 Numeric Is Patient Pain Free? Yes Wound debrided: Archer ulcer Type of Debridement: Excisional debridement Anesthesia Used: 5% Lidocaine Gel Depth: Down to and including healthy tissue, in the subcutaneous layer Percentage of wound debrided: 100 Instrument Used: 3mm curette Tissue Removed: Devitalized tissue and fibrin Severity: Limited To Skin Breakdown Amount of bleeding with debridement: Mild Bleeding Controlled with: Compression and gauze Patient tolerated procedure well Assessment/Plan Assessment: Open ulcer left archer area. Hypothyroidism Plan: Wash leg with Hibiclens apply Promogran moistened with Adaptic gauze every other day and tape double layer Tubigrip. Follow-up in 1 week
[2017-10-17 09:24] VITALS: BP 117/68; PULSE 65; RESP 16; TEMP 36.1; BMI 22.4
--- NOTE | 2017-10-17 09:43 | PCM.WC.PN ---
(1) Traumatic open wound of left lower leg with delayed healing Status: Acute Current Visit: Yes Code(s): S81.802D - Unspecified open wound, left lower leg, subsequent encounter (2) Traumatic open wound of left lower leg with infection Status: Acute Current Visit: No Code(s): S81.802A - Unspecified open wound, left lower leg, initial encounter; L08.9 - Local infection of the skin and subcutaneous tissue, unspecified Type of Wound Date of Service: 10/17/17 Chief Complaint: Follow-up left lower leg nonhealing ulcer from a fall, August 19. 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 L2 get down off the ladder and missed the last rung coming down on her left archer causing a huge avulsion laceration. Patient was seen by her family doctor and was put on Levaquin which she has finished and not really putting anything on the ulcer but a Band-Aid most of it is healed but the bottom half of the ulcer has not. Progress of Wound: Wound is healed today she will be discharged - Physical Exam Vital Signs Temp Pulse Resp BP 96.9 F L 65 16 117/68 10/17/17 09:24 10/17/17 09:24 10/17/17 09:24 10/17/17 09:24 General: Oriented x3, Cooperative, Well developed HEENT: Atraumatic, PERRLA Oral: Moist Mucosa Neck: Supple, No JVD Lungs: Clear to auscultation, Normal air movement Cardiovascular: Regular rate, Regular Rhythm Abdomen: Bowel Sounds Present, Soft, Non Tender, No Hepato-splenomegaly Extremities: No clubbing, No edema, - - Left archer ulcer Wound Measurements and Assessment - Nurse 1 - General Ulcer Measurement Start: 10/10/17 11:23 Freq: Status: Active Protocol: Activity Type Activity Date Activity User E-Sign Co-Sign Detail Recorded Client Recorded Date Recorded By Document 10/17/17 09:24 MW [id number] 10/17/17 09:29 MW 10/17/17 09:24 Wound Center Nurse 1 [Ulcer Assessment Protocol: WC.WD.LOC] #1 Left Archer -Combined with other wound No -Current Size (cm) - Length 0.1 -Current Size (cm) - Width 0.1 -Current Size (cm) - Depth 0.1 -Total Square Cm 0.01 -Photo Taken No -Epithelialization None Present -Tunneling No -Undermining/Tunneling No -Circular Undermining No -Exudate Amt None Present (0 %) -Granulation Amt None Present (0 %) -Granulation Quality N/A -Slough/Fibrin Yes -Necrosis Amt Small (1-33%) -Necrotic Tissue Type Adherent Slough -Structure Exposed None/Limited to Skin Breakdown -Texture (Jennifer-wound Skin Appearance) Assessed Scarring -Moisture (Jennifer-wound Skin Appearance Assessed ) Dry/Scaly -Color (Jennifer-wound Skin Appearance) No Abnormality Assessed -Temperature (Jennifer-wound Skin No Abnormality Appearance) (Pt Warm) -Tenderness on Palpation (Jennifer-wound No Skin Appearance) -Ulcer Cleansing Rinsed/ Irrigated with Saline -Foul Odor after Cleansing No -Anesthetic Used 4% Lidocaine Solution [Edema Assessment] -Lower Limb Edema Present No -Right Calf (cm) 31.9 -Right Ankle (cm) 18.0 WC - Nurse 2 - General Ulcer CM Notes Start: 10/10/17 11:23 Freq: Status: Active Protocol: Activity Type Activity Date Activity User E-Sign Co-Sign Detail Recorded Client Recorded Date Recorded By Document 10/17/17 09:29 MW [id number] 10/17/17 09:34 MW 10/17/17 09:29 Wound Center Nurse 2 [Procedure/Treatment] #1 Left Archer -Time 09:32 -Correct Patient Yes -Correct Side, Site, Position Yes -Correct Procedure Yes -Procedure Performed No -Post Debridement Size (cm) - Length 0 -Post Debridement Size (cm) - Width 0 -Post Debridement Size (cm) - Depth 0 -Total Square Cm 0 -Wound/Ulcer Outcome Healed- Epithelialized -Ulcer Cleansing Rinsed/ Irrigated with Saline -Foul Odor after Cleansing No -Bioengineered Tissue No -Cetacaine [place] No -Bleeding Controlled with NA -Treatment Response Procedure Tolerated Well [See Physician Procedure note for Specifics] Pain Scale: 0-10 Numeric [Pain] -Is Patient Pain Free? Yes Musculoskeletal: No Tenderness to Palpation of Joints or Extremities Lymphatic: No Cervical, Supraclavicular, or Inguinal Adenopathy Neurological: Cranial nerves II-XII grossly intact, Neuro grossly intact Psych/Mental Status: Normal Affect, Appropriate Debridement Note Post-Debridement Measurements/Treatment WC - Nurse 2 - General Ulcer CM Notes Start: 10/10/17 11:23 Freq: Status: Active Protocol: Activity Type Activity Date Activity User E-Sign Co-Sign Detail Recorded Client Recorded Date Recorded By Document 10/10/17 11:51 MW [id number] 10/10/17 11:55 MW Document 10/17/17 09:29 MW [id number] 10/17/17 09:34 MW 10/10/17 10/17/17 11:51 09:29 Wound Center Nurse 2 #1 Left Archer -Time 11:52 09:32 -Correct Patient Yes Yes -Correct Side, Site, Position Yes Yes -Correct Procedure Yes Yes -Procedure Performed Yes No -Type of Procedure Debridement -Clinical Debridement Subcutaneous -Post Debridement Size (cm) - Length 1.2 0 -Post Debridement Size (cm) - Width 0.4 0 -Post Debridement Size (cm) - Depth 0.1 0 -Total Square Cm 0.48 0 -Wound/Ulcer Outcome Not Healed Healed- Epithelialized -Ulcer Cleansing Rinsed/ Rinsed/ Irrigated with Irrigated with Saline Saline -Foul Odor after Cleansing No No -Bioengineered Tissue No No -Cetacaine [place] No No -Bleeding Controlled with Pressure NA -Treatment Response Procedure Procedure Tolerated Well Tolerated Well Pain Scale: 0-10 Numeric Is Patient Pain Free? Yes Yes No debridement was completed today Assessment/Plan Active Problems Traumatic open wound of left lower leg with delayed healing (Acute) Assessment: Open ulcer left archer area resolved. Hypothyroidism Plan: Discharge from the wound center and follow-up as needed
== END 2017-11-05 23:59 ==
LOC: WC 09:30
PROVIDERS: Family Provider Family Medicine Geriatric Medicine; PCP Family Medicine Geriatric Medicine; Visit Provider Nurse Practitioner
DX: S81.812A Laceration without foreign body, left lower leg, initial encounter (principal); W11.XXXA Fall on and from ladder, initial encounter; Y93.89 Activity, other specified
CPT/HCPCS: 11042; 99212; G0463

== ENCOUNTER → 2017-10-31 12:56 | Outpatient (CLI) | payer MEDICARE, SELFPAY | PROVIDERS: Family Provider Family Medicine Geriatric Medicine; PCP Family Medicine Geriatric Medicine; Visit Provider Family Medicine Geriatric Medicine | DX: N39.0 Urinary tract infection, site not specified (principal) | CPT/HCPCS: 36415; 87086; 87088 ==

== ENCOUNTER → 2017-12-29 12:03 | Outpatient (CLI) | payer MEDICARE, SELFPAY ==
--- NOTE | 2017-12-29 12:15 | RAD_ITS ---
STUDY: X-RAY - ABDOMEN/PELVIS REASON FOR EXAM: Female, 82 years old. Nausea/vomiting/diarrhea TECHNIQUE: AP supine and upright views of the abdomen and pelvis. COMPARISON: 2011 FINDINGS: Normal visualized lung bases. IVC filter noted. There is a paralytic ileus of the small intestine with mild gaseous distention. There is no demonstrated free abdominal air. The visualized liver, spleen and kidneys are grossly normal in size and morphology. Normal soft tissue structures. There are diffuse degenerative changes of the visualized lumbar spine. RAD/Abd Inc Decub and/or Erect IMPRESSION: Small bowel ileus Electronically Signed: Parth Valles MD at 12:38 EDT , Service support ,
[2017-12-29 12:50] LABS: Absolute Lymphocyte Count 1.27 X10^3/ul (0.83-4.51); Absolute Neutrophil Count 2.7 X10^3/uL (2.0-7.7); Basophil# 0.03 X10^3/uL; Basophil% 0.6 % (0-1); Eosinophils% 2.1 % (0-5); Hematocrit 38.2 % (37-47); Hemoglobin 12.3 g/dl (12.0-15.0); Lymphocyte # 1.27 X10^3/ul (4.0); Lymphocyte % 26.8 % (19-41); Mean Corp Hgb Conc 32.2 g/gl (32-36); Mean Corpuscular Volume 96.2 fL (81-99); Mean Platelet Vol. 12.5 fl (6.2-12.0); Monocyte# 0.68 X10^3/uL; Monocyte% 14.3 % (0-10); Neutrophil # 2.65 X10^3/uL (2.7-7.7); Platelet Count 157 K/mm3 (150-450); RBC Distribution Width CV 13.1 % (11.6-14.6); Red Blood Count 3.97 M/mm3 (4.2-5.4); White Blood Count 4.7 K/mm3 (4.4-11.0)
[2017-12-29 12:53] LABS: ALB/GLOB Ratio 1.3 RATIO (0.9-2.4); AST(SGOT) 18 U/L (15-37); Alanine Aminotransfer ALT/SGPT 22 U/L (13-56); Albumin, Serum 3.2 g/dL (3.2-5.0); Alkaline Phosphatase 52 U/L (45-117); Anion Gap 9 (5-15); BUN 13 mg/dL (7-18); BUN/Creat Ratio 13.5 RATIO (10-20); Calcium,Total 8.2 mg/dL (8.5-10.1); Chloride 107 mmol/L (98-107); Creatinine, Serum 0.96 mg/dL (0.55-1.02); EST Glomerular Filtration Rate 59 mL/min (>60); Est Glom Filt Rate - Afr Amer 71 mL/min (>60); Globulin 2.5 g/dL (2.2-4.2); Glucose 76 mg/dL (74-106); Protein, Total 5.7 g/dL (6.4-8.2); Sodium Level 141 mmol/L (136-145)
[2017-12-29 12:56] LABS: POSITIVE COUNT NO; POSITIVE DIFFERENTIAL NO; POSITIVE MORPHOLOGY NO
== END ==
PROVIDERS: Family Provider Family Medicine Geriatric Medicine; PCP Family Medicine Geriatric Medicine; Visit Provider Family Medicine Geriatric Medicine
DX: N39.0 Urinary tract infection, site not specified (principal); R63.4 Abnormal weight loss; R63.8 Other symptoms and signs concerning food and fluid intake; R19.7 Diarrhea, unspecified
CPT/HCPCS: 36415; 74019; 80053; 82274; 83630; 85025; 87086; 87088; 87177; 87209; 87493; 87506

== ENCOUNTER → 2018-01-16 09:10 | Outpatient (CLI) | payer MEDICARE, SELFPAY ==
--- NOTE | 2018-01-16 09:15 | RAD_ITS ---
STUDY: X-RAY - LEFT HAND REASON FOR EXAM: Female, 82 years old. Arthritis. TECHNIQUE: 3 view(s) of the hand. COMPARISON: None. FINDINGS: No definite acute fracture or dislocation. Severe demineralization. Widespread degenerative changes especially of the base of the thumb and the interphalangeal joints. Diffuse atrophy of the soft tissues. RAD/Hand Min 3 Views IMPRESSION: No acute fracture or dislocation. Demineralization and widespread degenerative changes. Electronically Signed: Christiano Rodriguez MD at 23:50 EDT , Service support ,
--- NOTE | 2018-01-16 09:15 | RAD_ITS ---
STUDY: X-RAY - RIGHT HAND REASON FOR EXAM: Female, 82 years old. Arthritis. TECHNIQUE: 3 view(s) of the hand. COMPARISON: None. FINDINGS: No definite acute fracture or dislocation. Severe demineralization. Widespread degenerative changes especially of the base of the thumb and the interphalangeal joints. Fusion of the fourth proximal interphalangeal joint. Diffuse atrophy of the soft tissues. RAD/Hand Min 3 Views IMPRESSION: No acute fracture or dislocation. Demineralization and widespread degenerative changes. Electronically Signed: Christiano Rodriguez MD at 23:49 EDT , Service support ,
--- NOTE | 2018-01-16 09:17 | RAD_ITS ---
STUDY: X-RAY - ABDOMEN/PELVIS REASON FOR EXAM: Female, 82 years old. Colitis. TECHNIQUE: AP supine and upright views of the abdomen and pelvis. COMPARISON: None. FINDINGS: Normal visualized lung bases. There is an unremarkable bowel gas pattern. Moderate fecal retention. There is no demonstrated free abdominal air. IVC filter in typical location. 1.1 cm density in the mid left abdomen could be a renal stone. Normal soft tissue structures. There are diffuse degenerative changes of the visualized lumbar spine. RAD/Abd Inc Decub and/or Erect IMPRESSION: Moderate fecal retention otherwise negative bowel gas pattern. Electronically Signed: Christiano Rodriguez MD at 23:53 EDT , Service support ,
--- NOTE | 2018-01-16 09:25 | RAD_ITS ---
STUDY: X-RAY - PELVIS REASON FOR EXAM: Female, 82 years old. Chronic pain. TECHNIQUE: One view of the pelvis was obtained. COMPARISON: None. FINDINGS: There is a non-specific bowel gas pattern. Normal visualized soft tissue structures. Normal bilateral iliac wings, sacroiliac joints and visualized sacrum. Normal visualized bilateral superior and inferior pubic rami. Normal pubic symphysis. Normal ischial tuberosities. There are osteoarthritic changes of the right femoral head with marginal osteophyte formation. Normal right acetabulum. There is moderate articular joint space narrowing of the right hip. There are osteoarthritic changes of the left femoral head with marginal osteophyte formation. Normal left acetabulum. There is moderate articular joint space narrowing of the left hip. RAD/Pelvis 1 or 2 Views IMPRESSION: No acute abnormality. Degenerative changes of both hips. Electronically Signed: Christiano Rodriguez MD at 23:52 EDT , Service support ,
== END ==
PROVIDERS: Family Provider Family Medicine Geriatric Medicine; PCP Family Medicine Geriatric Medicine; Visit Provider Internal Medicine Rheumatology
DX: M06.4 Inflammatory polyarthropathy (principal); M15.9 Polyosteoarthritis, unspecified; M18.0 Bilateral primary osteoarthritis of first carpometacarpal joints; R63.4 Abnormal weight loss; R19.7 Diarrhea, unspecified
CPT/HCPCS: 72170; 73130; 74019

== ENCOUNTER → 2018-01-22 14:15 | Outpatient (CLI) | payer MEDICARE, SELFPAY ==
[2018-01-22 17:20] LABS: Absolute Lymphocyte Count 1.86 X10^3/ul (0.83-4.51); Absolute Neutrophil Count 3.7 X10^3/uL (2.0-7.7); Basophil# 0.03 X10^3/uL; Basophil% 0.5 % (0-1); Eosinophil# 0.13 X10^3/uL; Hemoglobin 12.5 g/dl (12.0-15.0); Lymphocyte # 1.86 X10^3/ul (4.0); Lymphocyte % 29.3 % (19-41); Mean Corp Hgb Conc 32.1 g/gl (32-36); Mean Corpuscular Hgb 30.8 pg (27.0-32.0); Mean Corpuscular Volume 96.1 fL (81-99); Mean Platelet Vol. 11.9 fl (6.2-12.0); Monocyte# 0.67 X10^3/uL; Monocyte% 10.6 % (0-10); Neutrophil # 3.65 X10^3/uL (2.7-7.7); Neutrophil % 57.4 % (47-70); Platelet Count 214 K/mm3 (150-450); RBC Distribution Width CV 14.2 % (11.6-14.6); RBC Distribution Width SD 49.8 fl (35.1-43.9); Red Blood Count 4.06 M/mm3 (4.2-5.4); White Blood Count 6.4 K/mm3 (4.4-11.0)
[2018-01-22 17:41] LABS: ALB/GLOB Ratio 1.2 RATIO (0.9-2.4); AST(SGOT) 23 U/L (15-37); Alanine Aminotransfer ALT/SGPT 31 U/L (13-56); Albumin, Serum 3.4 g/dL (3.2-5.0); Alkaline Phosphatase 50 U/L (45-117); Anion Gap 7 (5-15); BUN 15 mg/dL (7-18); BUN/Creat Ratio 16.9 RATIO (10-20); Calcium,Total 8.6 mg/dL (8.5-10.1); Chloride 108 mmol/L (98-107); Creatinine, Serum 0.89 mg/dL (0.55-1.02); EST Glomerular Filtration Rate 65 mL/min (>60); Est Glom Filt Rate - Afr Amer 78 mL/min (>60); Globulin 2.9 g/dL (2.2-4.2); Glucose 89 mg/dL (74-106); Protein, Total 6.3 g/dL (6.4-8.2); Sodium Level 144 mmol/L (136-145); Thyroid Stim Hormone (TSH) 1.06 uIU/mL (0.358-3.74)
[2018-01-22 18:16] LABS: POSITIVE COUNT NO; POSITIVE DIFFERENTIAL NO; POSITIVE MORPHOLOGY NO
[2018-01-23 10:04] LABS: Vitamin D,25 Hydroxy 76.9 ng/mL (29.95-100.01)
== END ==
PROVIDERS: Family Provider Family Medicine Geriatric Medicine; PCP Family Medicine Geriatric Medicine; Visit Provider Family Medicine Geriatric Medicine
DX: E55.9 Vitamin D deficiency, unspecified (principal); I10 Essential (primary) hypertension
CPT/HCPCS: 36415; 80053; 82306; 84443; 85025

== ENCOUNTER → 2018-01-27 15:49 | Outpatient (CLI) | payer MEDICARE, SELFPAY ==
[2018-01-27 18:01] LABS: Absolute Lymphocyte Count 1.94 X10^3/ul (0.83-4.51); Absolute Neutrophil Count 3.8 X10^3/uL (2.0-7.7); Basophil# 0.04 X10^3/uL; Basophil% 0.6 % (0-1); Eosinophil# 0.12 X10^3/uL; Eosinophils% 1.8 % (0-5); Hematocrit 39.4 % (37-47); Hemoglobin 12.9 g/dl (12.0-15.0); Lymphocyte # 1.94 X10^3/ul (4.0); Lymphocyte % 29.9 % (19-41); Mean Corp Hgb Conc 32.7 g/gl (32-36); Mean Corpuscular Hgb 31.3 pg (27.0-32.0); Mean Corpuscular Volume 95.6 fL (81-99); Mean Platelet Vol. 11.5 fl (6.2-12.0); Monocyte# 0.61 X10^3/uL; Monocyte% 9.4 % (0-10); Neutrophil # 3.77 X10^3/uL (2.7-7.7); Neutrophil % 58.1 % (47-70); POSITIVE COUNT NO; POSITIVE DIFFERENTIAL NO; POSITIVE MORPHOLOGY NO; Platelet Count 223 K/mm3 (150-450); RBC Distribution Width CV 14.1 % (11.6-14.6); RBC Distribution Width SD 49.3 fl (35.1-43.9); Red Blood Count 4.12 M/mm3 (4.2-5.4); White Blood Count 6.5 K/mm3 (4.4-11.0)
[2018-01-27 18:14] LABS: Erythrocyte Sedimentation Rate 11 mm/hr (0-30)
[2018-01-27 18:37] LABS: ALB/GLOB Ratio 1.3 RATIO (0.9-2.4); AST(SGOT) 25 U/L (15-37); Alanine Aminotransfer ALT/SGPT 30 U/L (13-56); Albumin, Serum 3.8 g/dL (3.2-5.0); Alkaline Phosphatase 57 U/L (45-117); Anion Gap 7 (5-15); BUN 21 mg/dL (7-18); CRP < 2.90 mg/L (0.0-3.0); Calcium,Total 9.3 mg/dL (8.5-10.1); Chloride 107 mmol/L (98-107); Creatinine, Serum 1.05 mg/dL (0.55-1.02); EST Glomerular Filtration Rate 53 mL/min (>60); Est Glom Filt Rate - Afr Amer 65 mL/min (>60); Globulin 2.9 g/dL (2.2-4.2); Glucose 89 mg/dL (74-106); Potassium 4.2 mmol/L (3.5-5.1); Protein, Total 6.7 g/dL (6.4-8.2); Rheumatoid Factor < 10.0 IU/mL (<15); Sodium Level 142 mmol/L (136-145)
[2018-02-07 10:56] LABS: CCP IgG Antibodies 5 units (0-19); HEPATITIS B SURFACE AG Negative (Negative); HLA B27 Negative (.); Hep B Surface Antibodies Non Reactive (.); Hep C Antibodies <0.1 s/co ratio (0.0-0.9)
== END ==
PROVIDERS: Family Provider Family Medicine Geriatric Medicine; PCP Family Medicine Geriatric Medicine; Visit Provider Internal Medicine Rheumatology
DX: M06.4 Inflammatory polyarthropathy (principal); M18.0 Bilateral primary osteoarthritis of first carpometacarpal joints
CPT/HCPCS: 36415; 80053; 81374; 85025; 85652; 86140; 86200; 86431; 86706; 86803; 87340

== ENCOUNTER → 2018-04-10 09:27 | Outpatient (CLI) | payer MEDICARE, SELFPAY ==
--- NOTE | 2018-04-10 09:41 | RAD_ITS ---
STUDY: X-RAY - ABDOMEN/PELVIS REASON FOR EXAM: Female, 82 years old. Diarrhea TECHNIQUE: AP supine and upright views of the abdomen and pelvis. COMPARISON: 01/16/2018. FINDINGS: Normal visualized lung bases. There is an unremarkable bowel gas pattern. There is no demonstrated free abdominal air. The visualized liver, spleen and kidneys are grossly normal in size and morphology. Normal soft tissue structures. Normal visualized osseous structures. IVC filter in place. RAD/Abd Inc Decub and/or Erect IMPRESSION: Normal x-ray examination of the abdomen and pelvis. Electronically Signed: Hunter Rodriguez DO at 8:48 EDT , Service support ,
[2018-04-10 10:53] LABS: Absolute Lymphocyte Count 1.66 X10^3/ul (0.83-4.51); Absolute Neutrophil Count 3.2 X10^3/uL (2.0-7.7); Basophil# 0.02 X10^3/uL; Basophil% 0.4 % (0-1); Eosinophil# 0.07 X10^3/uL; Eosinophils% 1.3 % (0-5); Hematocrit 40.7 % (37-47); Hemoglobin 12.9 g/dl (12.0-15.0); Lymphocyte # 1.66 X10^3/ul (4.0); Lymphocyte % 30.3 % (19-41); Mean Corp Hgb Conc 31.7 g/gl (32-36); Mean Corpuscular Hgb 31.3 pg (27.0-32.0); Mean Corpuscular Volume 98.8 fL (81-99); Mean Platelet Vol. 12.2 fl (6.2-12.0); Monocyte# 0.53 X10^3/uL; Monocyte% 9.7 % (0-10); Neutrophil # 3.19 X10^3/uL (2.7-7.7); Neutrophil % 58.3 % (47-70); Platelet Count 152 K/mm3 (150-450); RBC Distribution Width CV 13.7 % (11.6-14.6); RBC Distribution Width SD 49.3 fl (35.1-43.9); Red Blood Count 4.12 M/mm3 (4.2-5.4); White Blood Count 5.5 K/mm3 (4.4-11.0)
[2018-04-10 10:54] LABS: POSITIVE COUNT NO; POSITIVE DIFFERENTIAL NO; POSITIVE MORPHOLOGY NO
== END ==
PROVIDERS: Family Provider Family Medicine Geriatric Medicine; PCP Family Medicine Geriatric Medicine; Visit Provider Family Medicine Geriatric Medicine
DX: R19.7 Diarrhea, unspecified (principal)
CPT/HCPCS: 36415; 74019; 85025

== ENCOUNTER → 2018-04-11 09:27 | Outpatient (CLI) | payer MEDICARE, SELFPAY | PROVIDERS: Family Provider Family Medicine Geriatric Medicine; PCP Family Medicine Geriatric Medicine; Visit Provider Family Medicine Geriatric Medicine | DX: R19.7 Diarrhea, unspecified (principal); R53.83 Other fatigue | CPT/HCPCS: 82274; 83630; 87177; 87209; 87493; 87506 ==

== ENCOUNTER → 2018-07-23 15:42 | Outpatient (CLI) | payer MEDICARE, SELFPAY ==
[2018-07-23 17:16] LABS: Absolute Lymphocyte Count 1.63 X10^3/ul (0.83-4.51); Absolute Neutrophil Count 3.8 X10^3/uL (2.0-7.7); Basophil# 0.04 X10^3/uL; Basophil% 0.6 % (0-1); Eosinophil# 0.19 X10^3/uL; Hematocrit 41.2 % (37-47); Hemoglobin 13.2 g/dl (12.0-15.0); Lymphocyte # 1.63 X10^3/ul (4.0); Mean Corpuscular Hgb 31.3 pg (27.0-32.0); Mean Corpuscular Volume 97.6 fL (81-99); Mean Platelet Vol. 13.1 fl (6.2-12.0); Monocyte# 0.64 X10^3/uL; Monocyte% 10.2 % (0-10); Neutrophil # 3.78 X10^3/uL (2.7-7.7); Neutrophil % 60.2 % (47-70); Platelet Count 180 K/mm3 (150-450); RBC Distribution Width CV 13.9 % (11.6-14.6); Red Blood Count 4.22 M/mm3 (4.2-5.4); White Blood Count 6.3 K/mm3 (4.4-11.0)
[2018-07-23 17:42] LABS: POSITIVE COUNT NO; POSITIVE DIFFERENTIAL NO; POSITIVE MORPHOLOGY NO
[2018-07-23 17:47] LABS: ALB/GLOB Ratio 1.2 RATIO (0.9-2.4); AST(SGOT) 23 U/L (15-37); Alanine Aminotransfer ALT/SGPT 29 U/L (13-56); Albumin, Serum 3.7 g/dL (3.2-5.0); Alkaline Phosphatase 71 U/L (45-117); Anion Gap 8 (5-15); BUN 21 mg/dL (7-18); BUN/Creat Ratio 20.4 RATIO (10-20); Calcium,Total 9.2 mg/dL (8.5-10.1); Chloride 106 mmol/L (98-107); Creatinine, Serum 1.03 mg/dL (0.55-1.02); EST Glomerular Filtration Rate 54 mL/min (>60); Est Glom Filt Rate - Afr Amer 66 mL/min (>60); Globulin 3.1 g/dL (2.2-4.2); Glucose 95 mg/dL (74-106); Potassium 4.4 mmol/L (3.5-5.1); Protein, Total 6.8 g/dL (6.4-8.2); Sodium Level 143 mmol/L (136-145); Thyroid Stim Hormone (TSH) 1.97 uIU/mL (0.358-3.74); Vitamin D,25 Hydroxy 52.6 ng/mL (29.95-100.01)
== END ==
PROVIDERS: Family Provider Family Medicine Geriatric Medicine; PCP Family Medicine Geriatric Medicine; Visit Provider Family Medicine Geriatric Medicine
DX: E55.9 Vitamin D deficiency, unspecified (principal); I10 Essential (primary) hypertension
CPT/HCPCS: 36415; 80053; 82306; 84443; 85025

== ENCOUNTER → 2018-08-12 13:34 | Outpatient (CLI) | payer MEDICARE, SELFPAY ==
--- NOTE | 2018-08-12 13:38 | RAD_ITS ---
STUDY: X-RAY - ABDOMEN/PELVIS REASON FOR EXAM: Female, 82 years old. Diarrhea TECHNIQUE: Frontal view COMPARISON: None. FINDINGS: Normal visualized lung bases. There is an unremarkable bowel gas pattern. There is no demonstrated free abdominal air. There is an IVC filter. The visualized liver, spleen and kidneys are grossly normal in size and morphology. Normal soft tissue structures. Normal visualized osseous structures. RAD/Abdomen Single View IMPRESSION: There is NO acute intra-abdominal abnormality. Electronically Signed: Moe Charles MD at 3:06 EST , Service support ,
== END ==
PROVIDERS: Family Provider Family Medicine Geriatric Medicine; PCP Family Medicine Geriatric Medicine; Referring Provider Family Medicine Geriatric Medicine; Visit Provider Family Medicine Geriatric Medicine
DX: R10.9 Unspecified abdominal pain (principal)
CPT/HCPCS: 74018

== ENCOUNTER → 2018-08-12 15:30 | Outpatient (CLI) | payer MEDICARE, SELFPAY ==
[2018-08-12 16:29] LABS: Absolute Lymphocyte Count 2.28 X10^3/ul (0.83-4.51); Basophil# 0.03 X10^3/uL; Basophil% 0.4 % (0-1); Eosinophil# 0.17 X10^3/uL; Eosinophils% 2.3 % (0-5); Hematocrit 41.4 % (37-47); Hemoglobin 13.2 g/dl (12.0-15.0); Lymphocyte # 2.28 X10^3/ul (4.0); Lymphocyte % 31.1 % (19-41); Mean Corp Hgb Conc 31.9 g/gl (32-36); Mean Corpuscular Hgb 31.6 pg (27.0-32.0); Mean Platelet Vol. 12.7 fl (6.2-12.0); Monocyte# 0.82 X10^3/uL; Monocyte% 11.2 % (0-10); Neutrophil # 4.03 X10^3/uL (2.7-7.7); Neutrophil % 54.9 % (47-70); Platelet Count 187 K/mm3 (150-450); RBC Distribution Width SD 50.3 fl (35.1-43.9); Red Blood Count 4.18 M/mm3 (4.2-5.4); White Blood Count 7.3 K/mm3 (4.4-11.0)
[2018-08-12 16:41] LABS: POSITIVE COUNT NO; POSITIVE DIFFERENTIAL NO; POSITIVE MORPHOLOGY NO
[2018-08-12 16:42] LABS: ALB/GLOB Ratio 1.2 RATIO (0.9-2.4); AST(SGOT) 22 U/L (15-37); Alanine Aminotransfer ALT/SGPT 25 U/L (13-56); Albumin, Serum 3.9 g/dL (3.2-5.0); Alkaline Phosphatase 75 U/L (45-117); Anion Gap 9 (5-15); BUN 17 mg/dL (7-18); BUN/Creat Ratio 14.4 RATIO (10-20); Calcium,Total 9.3 mg/dL (8.5-10.1); Chloride 104 mmol/L (98-107); Creatinine, Serum 1.18 mg/dL (0.55-1.02); EST Glomerular Filtration Rate 47 mL/min (>60); Est Glom Filt Rate - Afr Amer 56 mL/min (>60); Globulin 3.2 g/dL (2.2-4.2); Glucose 82 mg/dL (74-106); Potassium 4.2 mmol/L (3.5-5.1); Protein, Total 7.1 g/dL (6.4-8.2); Sodium Level 141 mmol/L (136-145)
== END ==
PROVIDERS: Family Provider Family Medicine Geriatric Medicine; PCP Family Medicine Geriatric Medicine; Visit Provider Family Medicine Geriatric Medicine
DX: N39.0 Urinary tract infection, site not specified (principal); R10.9 Unspecified abdominal pain
CPT/HCPCS: 36415; 74018; 80053; 85025; 87086; 87088

== ENCOUNTER → 2018-11-26 14:58 | Outpatient (CLI) | payer MEDICARE, SELFPAY ==
--- NOTE | 2018-11-26 15:02 | VDLE_ITS ---
Reason For Study: edema RIGHT LEFT GSV is normal. GSV is normal. CFV is compressible, spontaneous, phasic, CFV is compressible, spontaneous, phasic, competent and demonstrates normal competent, and demonstrates normal augmentation. augmentation. FV is compressible, spontaneous, phasic, FV is compressible, spontaneous, phasic, competent and demonstrates normal competent and demonstrates normal augmentation. augmentation. POP V is compressible, spontaneous, phasic, POP V is compressible, spontaneous, phasic, competent and demonstrates normal competent and demonstrates normal augmentation. augmentation. T/P Trunk is compressible. T/P Trunk is compressible. PTV is compressible. PTV is compressible. RT PerV is compressible. LT PerV is compressible. Procedure Exam performed in department. The exam was diagnostic. A preliminary report was called and/or faxed to Dr. Horton. Interpretation Summary Deep veins of the lower extremities are bilaterally patent and compressible segmentally. There is no evidence of deep vein thrombosis on either side. Valvular competence appears intact within the proximal deep venous systems bilaterally. The greater saphenous veins appear bilaterally patent and compressible segmentally. Ordering Physician: Sagar Horton Performed By: Ryan Middleton RVT
== END ==
PROVIDERS: Family Provider Family Medicine Geriatric Medicine; PCP Family Medicine Geriatric Medicine; Referring Provider Family Medicine Geriatric Medicine; Visit Provider Family Medicine Geriatric Medicine
DX: R60.0 Localized edema (principal)
CPT/HCPCS: 93970

== ENCOUNTER → 2018-11-30 13:57 | Outpatient (CLI) | payer MEDICARE, SELFPAY ==
--- NOTE | 2018-11-30 14:06 | US_ITS ---
STUDY: SUPERFICIAL ULTRASOUND - RIGHT CALF REASON FOR EXAM: Female, 83 years old. RT SAL MASS TECHNIQUE: A superficial ultrasound was performed with real-time and static glasgow-scale imaging. COMPARISON: None. FINDINGS: No focal fluid collections, masses, or evidence for abscess. No focal hematoma. Electronically Signed: Christiano Rodriguez MD at 23:49 EST , Service support , US/Ext Non Vasc Limited/Soft Tiss
== END ==
PROVIDERS: Family Provider Family Medicine Geriatric Medicine; PCP Family Medicine Geriatric Medicine; Referring Provider Family Medicine Geriatric Medicine; Visit Provider Family Medicine Geriatric Medicine
DX: R22.41 Localized swelling, mass and lump, right lower limb (principal)
CPT/HCPCS: 76882

== ENCOUNTER → 2018-12-03 09:49 | Outpatient (CLI) | payer MEDICARE, SELFPAY ==
[2018-12-03 12:56] LABS: Absolute Lymphocyte Count 1.35 X10^3/ul (0.83-4.51); Absolute Neutrophil Count 4.1 X10^3/uL (2.0-7.7); Basophil# 0.05 X10^3/uL; Basophil% 0.8 % (0-1); Eosinophil# 0.11 X10^3/uL; Eosinophils% 1.8 % (0-5); Hematocrit 42.9 % (37-47); Hemoglobin 13.5 g/dl (12.0-15.0); Lymphocyte # 1.35 X10^3/ul (4.0); Lymphocyte % 21.5 % (19-41); Mean Corp Hgb Conc 31.5 g/gl (32-36); Mean Corpuscular Volume 98.4 fL (81-99); Mean Platelet Vol. 12.1 fl (6.2-12.0); Monocyte# 0.61 X10^3/uL; Monocyte% 9.7 % (0-10); Neutrophil # 4.14 X10^3/uL (2.7-7.7); Platelet Count 194 K/mm3 (150-450); RBC Distribution Width CV 14.3 % (11.6-14.6); RBC Distribution Width SD 51.5 fl (35.1-43.9); Red Blood Count 4.36 M/mm3 (4.2-5.4); White Blood Count 6.3 K/mm3 (4.4-11.0)
[2018-12-03 12:58] LABS: POSITIVE COUNT NO; POSITIVE DIFFERENTIAL NO; POSITIVE MORPHOLOGY NO
[2018-12-03 13:06] LABS: ALB/GLOB Ratio 1.2 RATIO (0.9-2.4); AST(SGOT) 20 U/L (15-37); Alanine Aminotransfer ALT/SGPT 24 U/L (13-56); Albumin, Serum 3.6 g/dL (3.2-5.0); Alkaline Phosphatase 78 U/L (45-117); Anion Gap 6 (5-15); BUN 16 mg/dL (7-18); Calcium,Total 8.4 mg/dL (8.5-10.1); Chloride 108 mmol/L (98-107); Creatinine, Serum 0.89 mg/dL (0.55-1.02); EST Glomerular Filtration Rate 65 mL/min (>60); Est Glom Filt Rate - Afr Amer 78 mL/min (>60); Glucose 86 mg/dL (74-106); Potassium 4.1 mmol/L (3.5-5.1); Protein, Total 6.6 g/dL (6.4-8.2); Sodium Level 140 mmol/L (136-145)
== END ==
PROVIDERS: Family Provider Family Medicine Geriatric Medicine; PCP Family Medicine Geriatric Medicine; Referring Provider Internal Medicine Rheumatology; Visit Provider Internal Medicine Rheumatology
DX: M06.4 Inflammatory polyarthropathy (principal); M18.0 Bilateral primary osteoarthritis of first carpometacarpal joints; Q66.7 Congenital pes cavus
CPT/HCPCS: 36415; 80053; 85025

== ENCOUNTER → 2019-01-07 12:11 | Outpatient (CLI) | payer MEDICARE, SELFPAY ==
--- NOTE | 2019-01-07 12:28 | RAD_ITS ---
STUDY: X-RAY - ABDOMEN/PELVIS REASON FOR EXAM: Female, 83 years old. 5 day history of diarrhea. TECHNIQUE: Single AP view of the abdomen / pelvis. COMPARISON: Comparison is made with prior study dated #2007. FINDINGS: Elevation of the right hemidiaphragm. There is an unremarkable bowel gas pattern. Once again, there is a 1.3 cm rounded calcification overlying the mid inferior aspect of the left kidney. A filter is seen within the inferior vena cava. There are calcified phleboliths in the pelvis. There are diffuse degenerative changes of the visualized lumbar spine. RAD/Abdomen Single View IMPRESSION: Nonspecific bowel gas pattern. IVC filter. 1.3 cm calcification overlying the mid inferior aspect of the left kidney. Electronically Signed: Jensen Good, at 13:32 EDT , Service support ,
[2019-01-07 14:31] LABS: Absolute Lymphocyte Count 1.65 X10^3/ul (0.83-4.51); Absolute Neutrophil Count 5.4 X10^3/uL (2.0-7.7); Basophil# 0.04 X10^3/uL; Basophil% 0.5 % (0-1); Eosinophil# 0.07 X10^3/uL; Eosinophils% 0.9 % (0-5); Hematocrit 49.4 % (37-47); Hemoglobin 16.3 g/dl (12.0-15.0); Lymphocyte # 1.65 X10^3/ul (4.0); Lymphocyte % 20.1 % (19-41); Mean Corpuscular Volume 93.9 fL (81-99); Mean Platelet Vol. 12.5 fl (6.2-12.0); Monocyte# 1.04 X10^3/uL; Monocyte% 12.7 % (0-10); Neutrophil # 5.39 X10^3/uL (2.7-7.7); Neutrophil % 65.6 % (47-70); Platelet Count 185 K/mm3 (150-450); RBC Distribution Width CV 14.3 % (11.6-14.6); RBC Distribution Width SD 47.3 fl (35.1-43.9); Red Blood Count 5.26 M/mm3 (4.2-5.4); White Blood Count 8.2 K/mm3 (4.4-11.0)
[2019-01-07 14:33] LABS: POSITIVE COUNT NO; POSITIVE DIFFERENTIAL NO; POSITIVE MORPHOLOGY NO
[2019-01-07 15:06] LABS: ALB/GLOB Ratio 1.2 RATIO (0.9-2.4); AST(SGOT) 23 U/L (15-37); Alanine Aminotransfer ALT/SGPT 26 U/L (13-56); Albumin, Serum 4.1 g/dL (3.2-5.0); Alkaline Phosphatase 96 U/L (45-117); Anion Gap 9 (5-15); BUN 27 mg/dL (7-18); BUN/Creat Ratio 19.3 RATIO (10-20); Calcium,Total 9.4 mg/dL (8.5-10.1); Chloride 103 mmol/L (98-107); EST Glomerular Filtration Rate 38 mL/min (>60); Est Glom Filt Rate - Afr Amer 46 mL/min (>60); Globulin 3.4 g/dL (2.2-4.2); Glucose 100 mg/dL (74-106); Potassium 5.2 mmol/L (3.5-5.1); Protein, Total 7.5 g/dL (6.4-8.2); Sodium Level 137 mmol/L (136-145)
== END ==
LOC: POLAB3 12:11 → RAD 12:27
PROVIDERS: Family Provider Family Medicine Geriatric Medicine; PCP Family Medicine Geriatric Medicine; Referring Provider Family Medicine Geriatric Medicine; Visit Provider Family Medicine Geriatric Medicine
DX: R19.7 Diarrhea, unspecified (principal); N39.0 Urinary tract infection, site not specified
CPT/HCPCS: 36415; 74018; 80053; 85025; 87086

== ENCOUNTER → 2019-01-28 13:19 | Outpatient (CLI) | payer MEDICARE, SELFPAY ==
[2019-01-28 15:56] LABS: Absolute Lymphocyte Count 1.86 X10^3/ul (0.83-4.51); Absolute Neutrophil Count 3.3 X10^3/uL (2.0-7.7); Basophil# 0.04 X10^3/uL; Basophil% 0.7 % (0-1); Eosinophil# 0.19 X10^3/uL; Eosinophils% 3.1 % (0-5); Hematocrit 40.6 % (37-47); Lymphocyte # 1.86 X10^3/ul (4.0); Lymphocyte % 30.7 % (19-41); Mean Corpuscular Volume 96.9 fL (81-99); Mean Platelet Vol. 12.8 fl (6.2-12.0); Monocyte# 0.68 X10^3/uL; Monocyte% 11.2 % (0-10); Neutrophil # 3.27 X10^3/uL (2.7-7.7); Neutrophil % 54.1 % (47-70); POSITIVE COUNT NO; POSITIVE DIFFERENTIAL NO; POSITIVE MORPHOLOGY NO; Platelet Count 152 K/mm3 (150-450); Red Blood Count 4.19 M/mm3 (4.2-5.4); White Blood Count 6.1 K/mm3 (4.4-11.0)
[2019-01-28 16:25] LABS: Vitamin D,25 Hydroxy 35.4 ng/mL (29.95-100.01)
[2019-01-28 16:26] LABS: ALB/GLOB Ratio 1.3 RATIO (0.9-2.4); AST(SGOT) 19 U/L (15-37); Alanine Aminotransfer ALT/SGPT 25 U/L (13-56); Albumin, Serum 3.6 g/dL (3.2-5.0); Alkaline Phosphatase 74 U/L (45-117); Anion Gap 7 (5-15); BUN 21 mg/dL (7-18); BUN/Creat Ratio 24.2 RATIO (10-20); Calcium,Total 8.9 mg/dL (8.5-10.1); Chloride 109 mmol/L (98-107); Creatinine, Serum 0.87 mg/dL (0.55-1.02); EST Glomerular Filtration Rate 66 mL/min (>60); Est Glom Filt Rate - Afr Amer 80 mL/min (>60); Globulin 2.7 g/dL (2.2-4.2); Glucose 99 mg/dL (74-106); Potassium 4.3 mmol/L (3.5-5.1); Protein, Total 6.3 g/dL (6.4-8.2); Sodium Level 143 mmol/L (136-145); Thyroid Stim Hormone (TSH) 1.52 uIU/mL (0.358-3.74)
== END ==
PROVIDERS: Family Provider Family Medicine Geriatric Medicine; PCP Family Medicine Geriatric Medicine; Visit Provider Family Medicine Geriatric Medicine
DX: E55.9 Vitamin D deficiency, unspecified (principal); I10 Essential (primary) hypertension
CPT/HCPCS: 36415; 80053; 82306; 84443; 85025

== ENCOUNTER → 2019-02-02 15:42 | Outpatient (CLI) | payer MEDICARE, SELFPAY ==
--- NOTE | 2019-02-02 15:53 | BD_ITS ---
STUDY: DUAL ENERGY X-RAY ABSORPTIOMETRY / DXA REASON FOR EXAM: Female, 83 years old. The patient is postmenopausal. Loss of height. TECHNIQUE: Bone Mineral Density (BMD) measurements of lumbar spine and bilateral hips were obtained. COMPARISON: Comparison is made with prior study dated January 03, 2015. FINDINGS: Lumbar Spine (L1-L4): g/cm2 (1.019) / T-score (-1.5) / Z-score (0.4) Findings are suggestive of osteopenia with a low fracture risk. Increased thoracic kyphosis. Left Femur Total: g/cm2 (0.692) / T-score (-2.5) / Z-score (-0.3) Left Femoral Neck: g/cm2 (0.681) / T-score (-2.6) / Z-score (-0.3) Right Femur Total: g/cm2 (0.720) / T-score (-2.3) / Z-score (-0.1) Right Femoral Neck: g/cm2 (0.644) / T-score (-2.8) / Z-score (-0.5) The T-Scores on the most recent prior examination were: Lumbar Spine (L1-L4): There has been worsening of bone density since the previous examination. Left Femur Total: which represents a worsening of 1.1%. Right Femur Total: which represents a worsening of 4.8%. BD/Dexa Bone Density Study IMPRESSION: The patient is considered osteoporotic as outlined below according to World Kirill Organization (WHO) criteria with a high fracture risk. There has been worsening of bone density since the previous examination. Reference Information: The T-score is the number of standard deviations above or below the standard which is normal for young adults at their peak bone mineral density. The World Health Organization (WHO) interprets the T-scores as follows: Above -1 Normal bone density Between -1 and -2.5 Osteopenia Equal to / or below -2.5 Osteoporosis As a practical clinical guideline, osteopenia may be graded as follows: Mild -1 through -1.5 Moderate -1.6 through -2.0 Severe -2.1 through -2.4 The Z-score is the number of standard deviations above or below age-matched controls. A Z-score of less than -1.5 would be considered abnormal. References: 1. NIH Osteoporosis and Related Bone Diseases http://www.osteo.org 2. International Society for Clinical Densitometry http://www.iscd.org 3. National Osteoporosis Foundation http://www.nof.org Electronically Signed: Jensen Good, at 15:40 EDT , Service support ,
== END ==
PROVIDERS: Family Provider Family Medicine Geriatric Medicine; PCP Family Medicine Geriatric Medicine; Referring Provider Family Medicine Geriatric Medicine; Visit Provider Family Medicine Geriatric Medicine
DX: Z78.0 Asymptomatic menopausal state (principal)
CPT/HCPCS: 77080

== ENCOUNTER 2019-05-29 10:51 | Emergency (ER) | payer MEDICARE, SELFPAY ==
[2019-05-29 10:52] VITALS: BP 152/74; PULSE 71; RESP 14; TEMP 36.1; O2SAT 98; BMI 23.3
--- NOTE | 2019-05-29 11:07 | EKG12_ITS ---
Test Reason : DIZZINESS Blood Pressure : / mmHG Vent. Rate : 060 BPM Atrial Rate : 060 BPM P-R Int : 150 ms QRS Dur : 084 ms QT Int : 434 ms P-R-T Axes : 038 -23 038 degrees QTc Int : 434 ms Normal sinus rhythm Possible Left atrial enlargement Borderline ECG Confirmed by PETRONA MICHAUD, NEHEMIAS ([id number]), commercial production editor ARELI SLADE ([id number]) on 05/31/2019 11:28:42 AM Referred By: WILFRED Confirmed By:NEHEMIAS RUSS MD
--- NOTE | 2019-05-29 11:07 | RAD_ITS ---
STUDY: X-RAY CHEST REASON FOR EXAM: Female, 83 years old. Recently fell, dizziness TECHNIQUE: 04/23/2017 COMPARISON: None. FINDINGS: EKG leads project over the chest. Lungs are hyperexpanded. No airspace consolidation. There is no demonstrated pleural abnormality. Normal size heart. Normal mediastinum and janis. Normal visualized pulmonary arteries. There is atherosclerotic calcification of the aortic arch with tortuosity. There is demineralization of the osseous structures. Normal visualized ribs, clavicles, and shoulders. IVC filter is noted. RAD/Chest 1 View (Portable) IMPRESSION: Stable, nonacute portable x-ray examination of the chest. Electronically Signed: Isidro Perry MD (Brooks) at 11:52 EDT , Service support ,
--- NOTE | 2019-05-29 11:07 | CT_ITS ---
STUDY: CT BRAIN WITHOUT CONTRAST REASON FOR EXAM: Female, 83 years old. Dizziness, fall last night RADIATION DOSAGE (If Supplied By Facility): CTDIvol = ( 44.99 ) mGy, DLP = ( 745.49 ) mGycm TECHNIQUE: Transaxial CT imaging of the brain was performed without administration of intravenous contrast material. Individualized dose optimization techniques were used for this CT. COMPARISON: No relevant priors. FINDINGS: Normal soft tissue structures. Normal calvarium. Normal size ventricles and extra-axial spaces for the patient's age. Normal white matter tracts of the cerebral hemispheres. Normal basal ganglia and thalami. Normal brainstem. Normal cerebellum. There is no intracranial hemorrhage. There are no findings of an acute ischemic infarction. Atherosclerosis of the bilateral carotid siphons and vertebral arteries noted. There is mucoperiosteal inflammatory disease of the right maxillary sinus consistent with moderate chronic sinusitis. CT/Brain/Head without Contrast IMPRESSION: 1. No acute intracranial hemorrhage or mass effect. 2. Chronic right maxillary sinusitis. Electronically Signed: Isidro Perry MD (Brooks) at 11:47 EDT , Service support ,
[2019-05-29 11:19] VITALS: O2SAT 98
--- NOTE | 2019-05-29 11:21 | ED.VIS.GEN ---
History of Present Illness Chief Complaint: Dizziness Informant: Patient Onset: Days Current Severity: Mild Narrative: The patient reports that basically since Friday she has had a sense of lightheadedness she describes that sense as if she was floating in the air, Friday night, she stumbled and fell she believes she struck her head she had no LOC she was walking to the bathroom she continued that activity and walk back to bed, the sense of lightheadedness and floating has persisted it seems to be worse when she is up and about better when she sits and rests. She has no history of stroke seizure CA PE DVT she denies fever cough chest pain numbness weakness paresthesias no confusion just a persistent sense of floating lightheadedness. 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 on routine screening she is never had any difficulty or problems with that aneurysm and again she herself has no history of stroke TIA or other problems she denies any buzzing or ear problems, she denies any visual complaints she is very mentally sharp and she denies any numbness weakness paresthesias or cranial nerve issues Past Medical History - Allergies and Home Meds Allergies/Adverse Reactions: Allergies No Known Allergies Allergy (Verified 05/29/19 11:22) Primary Care Physician: Sagar Horton Chi, MD [Primary Care Provider] - Past Medical History: - Smoking Status: Never smoker Review of Systems ROS: - As above General: Denies: Chills, Fever, Sweats Eyes: Denies: Visual changes - bilaterally, Diplopia ENT: Denies: Rhinorrhea, Sore throat Cardiovascular: Denies: Chest pain, Palpitations Respiratory: Denies: Dyspnea, Cough, Dyspnea on exertion Gastrointestinal: Denies: Abdominal pain, Nausea, Vomiting, Diarrhea, Melena, Hematochezia Genitourinary: Denies: Dysuria, Hematuria, Frequency Musculoskeletal: Denies: Back pain, Extremity Pain Skin: Denies: Rash, Wounds Neurological: Reports: - - As above. Denies: Headache, Weakness, Numbness Physical Exam Vital Signs/Narrative: Vital Signs Temp Pulse Resp BP Pulse Ox 05/29/19 11:19 98 05/29/19 10:52 97.0 F L 71 14 152/74 H 98 General: Well nourished, Well developed, No Acute Distress Head: Normocephalic, Atraumatic Eyes: Perrl, EOMI ENT: Moist mucous membranes, No rhinorrhea Neck: Supple, Nontender Cardiovascular: Regular rate, Regular rhythm, No murmurs Respiratory: No distress, CTA bilaterally, Chest nontender Abdomen: Soft, Nontender, Nondistended, Normal bowel sounds Back: Nontender, Normal Inspection Extremities: Nontender, No edema Skin: Normal color, No rash Neurological: Alert, Oriented x3, Cranial nerves II-XII grossly intact, Normal Strength, Normal Sensation, - - Her general medical exam her neurologic exam are entirely unremarkable, her NIH is 0 her cranial nerves motor or sensory cerebellar and gait exam are normal she drove to the hospital at difficulty Psychological: Normal affect, Normal Mood Diagnostic/Tx/Re-eval - Medical Decision Making Given her complaints and all the above screening labs head CT IV fluids Patient screening labs unremarkable see those reports EKG shows a sinus rhythm rate 60 no acute injury pattern appreciated, head CT shows nothing acute no signs of aneurysm aneurysmal bleeding tumor inflammation stroke, chest x-ray unremarkable, there was signs of chronic right maxillary sinusitis on CT on reevaluation she is resting company the bed we discussed all of her test results we discussed the differential we discussed inpatient versus outpatient ongoing management, she declines admission states she feels much better just with IV fluids I explained to the exact etiology of the sense of floating and lightheadedness is unclear I explained that given her symptoms and the CT findings for sinusitis we should start her on antibiotics at least clear of the sinusitis no follow-up with her outpatient providers for further management and she is agreeable to that plan and will return for change in symptoms, I have cautioned her that the sinusitis may not actually be the primary cause of her symptoms that is why she needs further outpatient management she understands Home stable Final impression Right headedness etiology unclear, right maxillary sinusitis ED Disposition - Plan for ED Patient: Diagnosis: Sinusitis Instructions: DIZZINESS, Unk Cause, SINUSITIS, Abx Tx Prescriptions: Amox/Clavulanate Tablet [Augmentin Tablet] 875 mg PO Q12H #20 tab Prescription Printed Fluticasone 0.05% [Flonase Nasal [place]] 1 spray NASAL BID #1 bottle Prescription Printed Referrals: Sagar Horton Chi, MD [Primary Care Provider] -
[2019-05-29 11:26] LABS: Absolute Lymphocyte Count 2.09 X10^3/uL (0.83-4.51); Basophil# 0.06 X10^3/uL; Basophil% 0.7 % (0-1); Eosinophil# 0.19 X10^3/uL; Eosinophils% 2.1 % (0-5); Hematocrit 44.2 % (37-47); Hemoglobin 14.6 g/dL (12.0-15.0); Lymphocyte # 2.09 X10^3/ul (4.0); Lymphocyte % 23.1 % (19-41); Mean Corpuscular Hgb 31.7 pg (27.0-32.0); Mean Corpuscular Volume 95.9 fL (81-99); Mean Platelet Vol. 11.2 fl (6.2-12.0); Monocyte# 0.73 X10^3/uL; Monocyte% 8.1 % (0-10); NRBC Flagged by Analyzer 0 % (0-5); Neutrophil # 5.96 X10^3/uL (2.7-7.7); Neutrophil % 65.7 % (47-70); Platelet Count 180 K/mm3 (150-450); RBC Distribution Width SD 46.2 fl (35.1-43.9); Red Blood Count 4.61 M/mm3 (4.2-5.4); White Blood Count 9.1 K/mm3 (4.4-11.0)
[2019-05-29 11:40] LABS: Anion Gap 7 (5-15); BUN 17 mg/dL (7-18); BUN/Creat Ratio 18.7 RATIO (10-20); Chloride 107 mmol/L (98-107); Creatinine, Serum 0.91 mg/dL (0.55-1.02); EST Glomerular Filtration Rate 63 mL/min (>60); Est Glom Filt Rate - Afr Amer 76 mL/min (>60); Estimated Creatinine Clearance 35.35 ml/min; Glucose 100 mg/dL (74-106); Sodium Level 142 mmol/L (136-145)
[2019-05-29 11:51] VITALS: BP 156/79; PULSE 60; RESP 16; O2SAT 97
[2019-05-29 12:40] VITALS: BP 156/79; PULSE 59; RESP 20; O2SAT 98
--- NOTE | 2019-05-29 12:41 | ED.RN ---
PT DECLINED WAITING FOR PHARMACY TO SEND UP AUGMENTIN, STATES SHE WILL GOT STRAIGHT TO GET PRESCRIPTIONS FILLED AND TAKE ONE THEN.
== END 2019-05-29 12:42 | disposition home or self-care (01) ==
LOC: ED 11:43
PROVIDERS: Emergency Provider Emergency Medicine; Family Provider Family Medicine Geriatric Medicine; PCP Family Medicine Geriatric Medicine
DX: J32.0 Chronic maxillary sinusitis (principal)
CPT/HCPCS: 70450; 71045; 80048; 84484; 85025; 93005; 96360; 96374; 96375; 99284; J7040; A4216

== ENCOUNTER → 2019-06-09 14:12 | Outpatient (CLI) | payer MEDICARE, SELFPAY ==
[2019-05-29 10:52] VITALS: BMI 23.3
--- NOTE | 2019-06-09 14:17 | RAD_ITS ---
STUDY: X-RAY - SACRUM/COCCYX REASON FOR EXAM: Female, 83 years old. Pain after fall TECHNIQUE: 3 view(s) of the sacrum and coccyx were obtained. COMPARISON: None. FINDINGS: There is degenerative arthrosis of the bilateral sacroiliac joints. Normal visualized sacral ala and fused sacral bodies. Normal sacrococcygeal junction with a normal angulation. Normal coccygeal segments. The presacral soft tissue structures are unremarkable. RAD/Sacrum-Coccyx min 2 Views IMPRESSION: Degenerative changes of the SI joints. Electronically Signed: Parth Valles MD at 16:09 EDT , Service support ,
== END ==
PROVIDERS: Family Provider Family Medicine Geriatric Medicine; PCP Family Medicine Geriatric Medicine; Referring Provider Family Medicine Geriatric Medicine; Visit Provider Family Medicine Geriatric Medicine
DX: S33.8XXA Sprain of other parts of lumbar spine and pelvis, initial encounter (principal)
CPT/HCPCS: 72220

== ENCOUNTER → 2019-08-04 13:16 | Outpatient (CLI) | payer MEDICARE, SELFPAY ==
--- NOTE | 2019-08-04 15:16 | RAD_ITS ---
STUDY: X-RAY - THORACIC SPINE REASON FOR EXAM: Female, 83 years old. Back pain. TECHNIQUE: 3 view(s) of the thoracic spine were obtained. COMPARISON: None. FINDINGS: There is a slight increase in the normal thoracic kyphosis. There is minimal scoliosis, convexity to the right. There is demineralization of the thoracic spine with endplate spondylosis. There is multilevel disc space narrowing of the thoracic spine. There is an IVC filter in place. The soft tissue structures are unremarkable. RAD/Thoracic Spine 3 Views IMPRESSION: Diffuse osteopenia along with mild degenerative disease. Electronically Signed: Shannan Titus MD at 3:00 EDT , Service support ,
[2019-08-04 17:20] LABS: Absolute Lymphocyte Count 1.63 X10^3/uL (0.83-4.51); Absolute Neutrophil Count 4.5 X10^3/uL (2.0-7.7); Basophil# 0.06 X10^3/uL; Basophil% 0.9 % (0-1); Eosinophil# 0.16 X10^3/uL; Eosinophils% 2.3 % (0-5); Hematocrit 42.2 % (37-47); Hemoglobin 13.5 g/dL (12.0-15.0); Lymphocyte # 1.63 X10^3/ul (4.0); Lymphocyte % 23.6 % (19-41); Mean Corpuscular Hgb 31.3 pg (27.0-32.0); Mean Corpuscular Volume 97.9 fL (81-99); Mean Platelet Vol. 12.2 fl (6.2-12.0); Monocyte% 8.7 % (0-10); NRBC Flagged by Analyzer 0 % (0-5); Neutrophil # 4.45 X10^3/uL (2.7-7.7); Neutrophil % 64.2 % (47-70); Platelet Count 197 K/mm3 (150-450); RBC Distribution Width CV 13.7 % (11.6-14.6); RBC Distribution Width SD 49.9 fl (35.1-43.9); Red Blood Count 4.31 M/mm3 (4.2-5.4); White Blood Count 6.9 K/mm3 (4.4-11.0)
[2019-08-04 17:44] LABS: Vitamin D,25 Hydroxy 44.9 ng/mL (29.95-100.01)
[2019-08-04 18:04] LABS: ALB/GLOB Ratio 1.2 RATIO (0.9-2.4); AST(SGOT) 22 U/L (15-37); Alanine Aminotransfer ALT/SGPT 26 U/L (13-56); Albumin, Serum 3.7 g/dL (3.2-5.0); Alkaline Phosphatase 89 U/L (45-117); Anion Gap 8 (5-15); BUN 20 mg/dL (7-18); Calcium,Total 9.2 mg/dL (8.5-10.1); Chloride 105 mmol/L (98-107); EST Glomerular Filtration Rate 56 mL/min (>60); Est Glom Filt Rate - Afr Amer 68 mL/min (>60); Globulin 3.2 g/dL (2.2-4.2); Glucose 95 mg/dL (74-106); Potassium 4.2 mmol/L (3.5-5.1); Protein, Total 6.9 g/dL (6.4-8.2); Sodium Level 141 mmol/L (136-145); Thyroid Stim Hormone (TSH) 1.34 uIU/mL (0.358-3.74)
== END ==
PROVIDERS: Family Provider Family Medicine Geriatric Medicine; PCP Family Medicine Geriatric Medicine; Referring Provider Family Medicine Geriatric Medicine; Visit Provider Family Medicine Geriatric Medicine
DX: E55.9 Vitamin D deficiency, unspecified (principal); I10 Essential (primary) hypertension; M85.88 Other specified disorders of bone density and structure, other site
CPT/HCPCS: 36415; 72072; 80053; 82306; 84443; 85025

== ENCOUNTER → 2019-08-31 15:10 | Outpatient (CLI) | payer MEDICARE, SELFPAY ==
[2019-08-31 17:57] LABS: ALB/GLOB Ratio 1.3 RATIO (0.9-2.4); AST(SGOT) 17 U/L (15-37); Alanine Aminotransfer ALT/SGPT 21 U/L (13-56); Albumin, Serum 3.8 g/dL (3.2-5.0); Alkaline Phosphatase 72 U/L (45-117); Anion Gap 7 (5-15); BUN 27 mg/dL (7-18); BUN/Creat Ratio 21.3 RATIO (10-20); Calcium,Total 9.3 mg/dL (8.5-10.1); Chloride 105 mmol/L (98-107); Creatinine, Serum 1.27 mg/dL (0.55-1.02); EST Glomerular Filtration Rate 43 mL/min (>60); Est Glom Filt Rate - Afr Amer 52 mL/min (>60); Globulin 2.9 g/dL (2.2-4.2); Glucose 92 mg/dL (74-106); Potassium 4.1 mmol/L (3.5-5.1); Protein, Total 6.7 g/dL (6.4-8.2); Sodium Level 140 mmol/L (136-145)
[2019-08-31 18:10] LABS: Absolute Lymphocyte Count 2.45 X10^3/uL (0.83-4.51); Absolute Neutrophil Count 3.9 X10^3/uL (2.0-7.7); Basophil# 0.06 X10^3/uL; Basophil% 0.8 % (0-1); Eosinophil# 0.21 X10^3/uL; Eosinophils% 2.9 % (0-5); Hematocrit 41.8 % (37-47); Hemoglobin 13.2 g/dL (12.0-15.0); Lymphocyte # 2.45 X10^3/ul (4.0); Lymphocyte % 33.3 % (19-41); Mean Corp Hgb Conc 31.6 g/dL (32-36); Mean Corpuscular Hgb 30.6 pg (27.0-32.0); Monocyte# 0.72 X10^3/uL; Monocyte% 9.8 % (0-10); NRBC Flagged by Analyzer 0 % (0-5); Neutrophil % 52.9 % (47-70); Platelet Count 202 K/mm3 (150-450); RBC Distribution Width CV 13.8 % (11.6-14.6); RBC Distribution Width SD 49.7 fl (35.1-43.9); Red Blood Count 4.31 M/mm3 (4.2-5.4); White Blood Count 7.4 K/mm3 (4.4-11.0)
== END ==
PROVIDERS: Family Provider Family Medicine Geriatric Medicine; PCP Family Medicine Geriatric Medicine; Referring Provider Internal Medicine Rheumatology; Visit Provider Internal Medicine Rheumatology
DX: M06.4 Inflammatory polyarthropathy (principal); M18.0 Bilateral primary osteoarthritis of first carpometacarpal joints; Q66.70 Congenital pes cavus, unspecified foot; I10 Essential (primary) hypertension; E03.9 Hypothyroidism, unspecified; E78.5 Hyperlipidemia, unspecified; I26.99 Other pulmonary embolism without acute cor pulmonale; I82.519 Chronic embolism and thrombosis of unspecified femoral vein
CPT/HCPCS: 36415; 80053; 85025

== ENCOUNTER → 2019-09-16 14:15 | Outpatient (CLI) | payer MEDICARE, SELFPAY ==
[2019-09-16 17:29] LABS: Absolute Lymphocyte Count 2.55 X10^3/uL (0.83-4.51); Absolute Neutrophil Count 6.3 X10^3/uL (2.0-7.7); Basophil# 0.06 X10^3/uL; Basophil% 0.6 % (0-1); Eosinophil# 0.24 X10^3/uL; Eosinophils% 2.4 % (0-5); Hematocrit 43.2 % (37-47); Hemoglobin 13.8 g/dL (12.0-15.0); Lymphocyte # 2.55 X10^3/ul (4.0); Lymphocyte % 25.2 % (19-41); Mean Corp Hgb Conc 31.9 g/dL (32-36); Mean Corpuscular Hgb 31.2 pg (27.0-32.0); Mean Corpuscular Volume 97.7 fL (81-99); Mean Platelet Vol. 12.8 fl (6.2-12.0); Monocyte# 0.96 X10^3/uL; Monocyte% 9.5 % (0-10); NRBC Flagged by Analyzer 0 % (0-5); Neutrophil # 6.26 X10^3/uL (2.7-7.7); Neutrophil % 61.8 % (47-70); Platelet Count 196 K/mm3 (150-450); RBC Distribution Width CV 14.1 % (11.6-14.6); RBC Distribution Width SD 51.4 fl (35.1-43.9); Red Blood Count 4.42 M/mm3 (4.2-5.4); White Blood Count 10.1 K/mm3 (4.4-11.0)
[2019-09-16 18:07] LABS: Vitamin D,25 Hydroxy 36.9 ng/mL (29.95-100.01)
[2019-09-16 18:12] LABS: ALB/GLOB Ratio 1.4 RATIO (0.9-2.4); AST(SGOT) 15 U/L (15-37); Alanine Aminotransfer ALT/SGPT 29 U/L (13-56); Albumin, Serum 3.7 g/dL (3.2-5.0); Alkaline Phosphatase 66 U/L (45-117); Anion Gap 7 (5-15); BUN 29 mg/dL (7-18); BUN/Creat Ratio 22.8 RATIO (10-20); Calcium,Total 8.8 mg/dL (8.5-10.1); Chloride 105 mmol/L (98-107); Creatinine, Serum 1.27 mg/dL (0.55-1.02); EST Glomerular Filtration Rate 43 mL/min (>60); Est Glom Filt Rate - Afr Amer 52 mL/min (>60); Globulin 2.6 g/dL (2.2-4.2); Glucose 93 mg/dL (74-106); Potassium 4.1 mmol/L (3.5-5.1); Protein, Total 6.3 g/dL (6.4-8.2); Sodium Level 139 mmol/L (136-145); Thyroid Stim Hormone (TSH) 1.74 uIU/mL (0.358-3.74)
== END ==
PROVIDERS: Family Provider Family Medicine Geriatric Medicine; PCP Family Medicine Geriatric Medicine; Visit Provider Family Medicine Geriatric Medicine
DX: E55.9 Vitamin D deficiency, unspecified (principal); I10 Essential (primary) hypertension
CPT/HCPCS: 36415; 80053; 82306; 84443; 85025

== ENCOUNTER 2019-09-17 12:30 | Outpatient (RCR) | payer MEDICARE, SELFPAY ==
--- NOTE | 2019-09-15 11:57 | HP.PTEVAL_ITS ---
Patient's Visit Information BOGDAN SYKES is a 84 year old F referred to Physical Therapy by Sagar Horton MD with a diagnosis of THORACIC BACK PAIN. Date of Evaluation: 09/15/19 Physical Therapist: Wilman Robbins, PT, Cert MDT, OCS - Visit Plan Frequency: 2x /Week Duration: 4 Weeks Plan: PT INTERVENTIONS WITH THORACIC /POSTURAL STRENGTHENING,MODALTIES NEED - Subjective Findings: This 84 y/o female presents to hysical therapy with thoracic pain . Patient has had thoracic pain end of JUL no injury ,buy has severe osteoprosis . Patient has had no diagnostics. Patient may want to do MRI. Pain located symmtrical thoracic spine.Aggravating factors putting pressure on thoracic spine.Patient has [place] sneakers at [facility]. Patient able to walk and stand without problems. Patient pain affects sleeping when sleeping on back. Patient desribes symptoms as burning pain. Patient pain affects QOL and function with ADLS'. SOCIAL:. 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 PALAPTION: tender between scapular. NEURO: denies parathesia/tingling,reflexes C5-6-7 1/. AROM:BUE WFL. MMT: 4/5 ,SHOULDER 4-/5. THORACIC ROM: flexion mod loss,extension severe loss,rotation mod loss - Goals Goal 1:: Patient to improve posture for ADL'S Goal Time Frame: 4-6 Weeks Goal 2:: Patient to be I with HEP. Goal Time Frame: 4-6 Weeks Goal 3:: Patient to decrease pain with applying pressur in sitting or supine sleeping by 50% or> to improve function. Goal Time Frame: 4-6 Weeks Goal 4:: Patient to improve dash disablity score by 5 points to improve QOL Goal Time Frame: 4-6 Weeks - Rehabilitation Potential Physical Therapy Diagnosis: This patient has thoracic pain when h/o osteoprosis with deficit with posture impairs ADL's thus benifit from skilled. Rehabilitation Potential: Good - Anticipated Interventions Patient/Client Instruction: Educate patient on: Condition, Plan of Care For the Purpose of:: To decrease pain, To increase ROM, To improve muscle performance and motor function, To improve ability to perform ADL's, To increase tolerance to activity/condition/position, To improve ability of physical actions for home/community/work/leisure, To improve health of tissue, To decrease soft tissue restriction, To increase flexibility/ROM, To improve ability to perform tasks related to life management Therapeutic Exercise to Include: Strength training, Postural training, Flex ibilty training, Dynamic Lumbar Stabilization Comment: THORACIC For the Purpose of:: To decrease pain, To increase ROM, To improve muscle performance and motor function, To improve ability to perform ADL's, To increase tolerance to activity/condition/position, To improve ability of physical actions for home/community/work/leisure, To increase flexibility/ROM, To improve ability to perform tasks related to life management TENS: Yes IF ES: Yes Cryotherapy (ice pack, ice massage): Yes Thermo therapy (hot pack): Yes Ultrasound (thermal/non thermal): Yes For the Purpose of:: To decrease pain, To increase ROM, To improve nutrient delivery to tissue, To increase oxygenation perfusion, To improve health of tissue, To decrease soft tissue restriction Thank you for the opportunity to evaluate your patient. For Medicare and Medicare HMO plans, please review the plan of care and approve it. It will need to be FAXED BACK to us at [phone] for Medicare purposes. For Medicare only, by signing this I certify the plan of care. Please let me know if there are questions or concerns regarding this plan of care. Physician Signature: Date:
== END 2019-09-17 19:00 | disposition home or self-care (01) ==
LOC: PT 12:30
PROVIDERS: Family Provider Family Medicine Geriatric Medicine; PCP Family Medicine Geriatric Medicine; Referring Provider Family Medicine Geriatric Medicine; Visit Provider Family Medicine Geriatric Medicine
DX: M54.6 Pain in thoracic spine (principal)
CPT/HCPCS: 97110; 97162

== ENCOUNTER → 2019-10-28 11:05 | Outpatient (CLI) | payer MEDICARE, SELFPAY ==
--- NOTE | 2019-10-28 11:35 | RAD_ITS ---
HISTORY: Diarrhea 5 days ago. Some cramping. History of similar symptoms 1 year ago. Comparison x-ray of the abdomen is dated January 07, 2019 Findings: IVC filter remains. Calcifications superimposed over the left and right kidneys remains. Scoliosis is mild and remains. Elevation the right hemidiaphragm remains. Heart is not enlarged. Visualized portions of the lung bases are clear. Gaseous distention of colon in the left hemiabdomen is slightly greater than the previous study but well within the realm of normal. RAD/Abdomen Single View IMPRESSION: Stable appearance to angled IVC filter. Persistent calcifications superimposed over the kidneys possibly representing nephroliths. Chronic elevation of the right hemidiaphragm. at 2222 Reported and signed by: London Slaughter MD Electronically Signed: London Slaughter MD at 22:21 EST Tel , Service support ,
[2019-10-28 12:40] LABS: Absolute Lymphocyte Count 1.42 X10^3/uL (0.83-4.51); Absolute Neutrophil Count 3.8 X10^3/uL (2.0-7.7); Basophil# 0.06 X10^3/uL; Eosinophil# 0.15 X10^3/uL; Eosinophils% 2.5 % (0-5); Hematocrit 47.2 % (37-47); Hemoglobin 15.1 g/dL (12.0-15.0); Lymphocyte # 1.42 X10^3/ul (4.0); Lymphocyte % 23.2 % (19-41); Mean Corpuscular Hgb 31.3 pg (27.0-32.0); Mean Corpuscular Volume 97.9 fL (81-99); Mean Platelet Vol. 11.6 fl (6.2-12.0); Monocyte# 0.66 X10^3/uL; Monocyte% 10.8 % (0-10); NRBC Flagged by Analyzer 0 % (0-5); Neutrophil # 3.82 X10^3/uL (2.7-7.7); Neutrophil % 62.3 % (47-70); Platelet Count 203 K/mm3 (150-450); RBC Distribution Width CV 13.8 % (11.6-14.6); RBC Distribution Width SD 50.4 fl (35.1-43.9); Red Blood Count 4.82 M/mm3 (4.2-5.4); White Blood Count 6.1 K/mm3 (4.4-11.0)
[2019-10-28 12:59] LABS: ALB/GLOB Ratio 1.2 RATIO (0.9-2.4); AST(SGOT) 17 U/L (15-37); Alanine Aminotransfer ALT/SGPT 23 U/L (13-56); Albumin, Serum 3.8 g/dL (3.2-5.0); Alkaline Phosphatase 75 U/L (45-117); Anion Gap 3 (5-15); BUN 13 mg/dL (7-18); BUN/Creat Ratio 12.9 RATIO (10-20); Calcium,Total 8.7 mg/dL (8.5-10.1); Chloride 110 mmol/L (98-107); Creatinine, Serum 1.01 mg/dL (0.55-1.02); EST Glomerular Filtration Rate 56 mL/min (>60); Est Glom Filt Rate - Afr Amer 67 mL/min (>60); Globulin 3.3 g/dL (2.2-4.2); Glucose 89 mg/dL (74-106); Potassium 4.2 mmol/L (3.5-5.1); Protein, Total 7.1 g/dL (6.4-8.2); Sodium Level 141 mmol/L (136-145); Thyroid Stim Hormone (TSH) 1.01 uIU/mL (0.358-3.74)
== END ==
PROVIDERS: PCP Family Medicine Geriatric Medicine; Referring Provider Family Medicine Geriatric Medicine; Visit Provider Family Medicine Geriatric Medicine
DX: K56.7 Ileus, unspecified (principal); R53.83 Other fatigue
CPT/HCPCS: 36415; 74018; 80053; 84443; 85025

== ENCOUNTER → 2019-10-28 16:42 | Outpatient (CLI) | payer MEDICARE, SELFPAY | PROVIDERS: PCP Family Medicine Geriatric Medicine; Referring Provider Family Medicine Geriatric Medicine; Visit Provider Family Medicine Geriatric Medicine | DX: R19.7 Diarrhea, unspecified (principal); K56.7 Ileus, unspecified; R53.83 Other fatigue | CPT/HCPCS: 36415; 74018; 80053; 82274; 83630; 84443; 85025; 87177; 87209; 87493; 87506 ==

== ENCOUNTER 2019-11-07 10:31 | Emergency (ER) | payer MEDICARE, SELFPAY ==
[2019-11-07 10:32] VITALS: BP 114/73; PULSE 84; RESP 17; TEMP 36.5; O2SAT 96; BMI 22.6
[2019-11-07 10:42] VITALS: BP 114/73; PULSE 84; RESP 17; TEMP 36.5; O2SAT 96
--- NOTE | 2019-11-07 10:52 | ED.VIS.GEN ---
History of Present Illness Chief Complaint: Diarrhea Informant: Patient, Family Onset: Weeks - 2 weeks Current Severity: Moderate Maximum Severity: Moderate Narrative: Patient presents with continued diarrhea over the past 2 weeks. She states she has diarrhea anytime she puts anything in her mouth. She has been seen by her PCP and has been given saline infusions in the office. She is scheduled to Dr. Haq in just a couple days. Patient denies antibiotic use prior to the onset of the diarrhea. Because of the diarrhea her primary care physician did put her on Flagyl. She has had no fever or abdominal pain. She denies any prior abdominal surgeries. She denies history of IBS or Crohn's disease. - Past Medical History (1) TIA (transient ischemic attack) Status: Chronic (2) Cerebral aneurysm Status: Chronic (3) Hypertension Status: Chronic (4) Pulmonary embolism Status: Chronic (5) GERD (gastroesophageal reflux disease) Status: Chronic (6) S/P AAA repair Status: Chronic (7) Hypothyroid Status: Chronic (8) History of left knee replacement Status: Chronic Past Medical History - Allergies and Home Meds Allergies/Adverse Reactions: Allergies No Known Allergies Allergy (Verified 11/07/19 10:31) Primary Care Physician: Sagar Horton Chi, MD [Primary Care Provider] - Prior records reviewed: Yes Smoking Status: Never smoker Review of Systems General: Denies: Chills, Fever Eyes: Denies: Visual changes - bilaterally ENT: Denies: Bilateral ear pain Cardiovascular: Denies: Chest pain, Palpitations Respiratory: Denies: Dyspnea, Cough Gastrointestinal: Reports: Diarrhea. Denies: Abdominal pain, Nausea, Vomiting Genitourinary: Denies: Dysuria Musculoskeletal: Denies: Swelling, Extremity Pain Skin: Denies: Rash Neurological: Denies: Headache Hematologic: Denies: Easy bruising, Easy bleeding Allergy: Denies: Uticaria Physical Exam Vital Signs/Narrative: Vital Signs Temp Pulse Resp BP Pulse Ox 11/07/19 10:42 97.7 F L 84 17 114/73 96 11/07/19 10:32 97.7 F L 84 17 114/73 96 Inital Vital Signs reviewed: Yes General: Well nourished, Well developed Head: Normocephalic ENT: Dry mucous membranes Neck: Supple Cardiovascular: Regular rate, Regular rhythm Respiratory: No distress, CTA bilaterally Abdomen: Soft, Nontender, Normal bowel sounds Extremities: Nontender Skin: Normal color, No rash Neurological: Alert, Oriented x3 Psychological: Normal affect Diagnostic/Tx/Re-eval Laboratory Results 11/07/19 11/07/19 11/07/19 11:00 11:00 11:55 WBC 5.2 RBC 4.71 Hgb 14.4 Hct 44.8 MCV 95.1 MCH 30.6 MCHC 32.1 RDW Std Deviation 47.5 H RDW Coeff of Pj 13.5 Plt Count 180 MPV 11.7 Immature Gran % (Auto) 0.200 Neut % (Auto) 60.3 Lymph % (Auto) 25.2 [place] % (Auto) 12.2 H Eos % (Auto) 1.3 Baso % (Auto) 0.8 Absolute Neuts (auto) 3.2 Absolute Lymphs (auto) 1.32 Nucleated RBC % 0 Sodium 142 Potassium 3.5 Chloride 108 H Carbon Dioxide 25.0 Anion Gap 9 BUN 6 L Creatinine 0.96 Estim Creat Clear Calc 32.92 Est GFR (MDRD) Af Amer 71 Est GFR (MDRD) Non-Af 59 L BUN/Creatinine Ratio 6.2 L Glucose 88 Calcium 8.7 Urine Color Yellow Urine Clarity Clear Urine pH 7.0 Ur Specific [place] 1.010 Urine Protein Negative Urine Glucose (UA) Normal Urine Ketones Negative Urine Occult Blood Negative Urine Nitrite Negative Urine Bilirubin Negative Urine Urobilinogen Normal Ur Leukocyte Esterase Negative Urine RBC 0 SEEN Urine WBC 0 SEEN Ur Squamous Epith Cells 0-5 SEEN Urine Bacteria 0 SEEN Urine Mucus 0 SEEN - Medical Decision Making Patient was given a liter IV fluids here. On repeat evaluation she is resting comfortably. Patient has not been able to provide a stool sample here. She did have stool studies performed on the they were unremarkable. She is scheduled to have a colonoscopy in [address] Grider. I will not hold the patient here waiting for stool sample. If Dr. Haq feels that she does need repeat stool studies it can be ordered in 2 days. Patient is comfortable with this plan. ED Disposition - Plan for ED Patient: Disposition: Home or Assisted Living Diagnosis: Diarrhea Instructions: DIARRHEA, Unk Cause (Adult) Report Pendg Referrals: Sagar Horton Chi, MD [Primary Care Provider] - Michael Haq MD [NON-STAFF] - Keep Allan appointment
[2019-11-07] MEDS: 0.9% Normal Saline 1,000 ML 1000 ML IV (11:02)
[2019-11-07 11:23] LABS: Absolute Lymphocyte Count 1.32 X10^3/uL (0.83-4.51); Absolute Neutrophil Count 3.2 X10^3/uL (2.0-7.7); Basophil# 0.04 X10^3/uL; Basophil% 0.8 % (0-1); Eosinophil# 0.07 X10^3/uL; Eosinophils% 1.3 % (0-5); Hematocrit 44.8 % (37-47); Hemoglobin 14.4 g/dL (12.0-15.0); Lymphocyte # 1.32 X10^3/ul (4.0); Lymphocyte % 25.2 % (19-41); Mean Corp Hgb Conc 32.1 g/dL (32-36); Mean Corpuscular Hgb 30.6 pg (27.0-32.0); Mean Corpuscular Volume 95.1 fL (81-99); Mean Platelet Vol. 11.7 fl (6.2-12.0); Monocyte# 0.64 X10^3/uL; Monocyte% 12.2 % (0-10); NRBC Flagged by Analyzer 0 % (0-5); Neutrophil # 3.16 X10^3/uL (2.7-7.7); Neutrophil % 60.3 % (47-70); Platelet Count 180 K/mm3 (150-450); RBC Distribution Width CV 13.5 % (11.6-14.6); RBC Distribution Width SD 47.5 fl (35.1-43.9); Red Blood Count 4.71 M/mm3 (4.2-5.4); White Blood Count 5.2 K/mm3 (4.4-11.0)
[2019-11-07 11:27] LABS: Anion Gap 9 (5-15); BUN 6 mg/dL (7-18); BUN/Creat Ratio 6.2 RATIO (10-20); Calcium,Total 8.7 mg/dL (8.5-10.1); Chloride 108 mmol/L (98-107); Creatinine, Serum 0.96 mg/dL (0.55-1.02); EST Glomerular Filtration Rate 59 mL/min (>60); Est Glom Filt Rate - Afr Amer 71 mL/min (>60); Estimated Creatinine Clearance 32.92 ml/min; Glucose 88 mg/dL (74-106); Potassium 3.5 mmol/L (3.5-5.1); Sodium Level 142 mmol/L (136-145)
[2019-11-07 11:59] LABS: Bacteria 0 SEEN /hpf (None Seen); Mucous, Urine 0 SEEN /hpf (<or=2+); Red Blood Cells-Urine 0 SEEN /hpf (0-5); White Blood Cells 0 SEEN /hpf (0-5)
[2019-11-07 12:08] LABS: Color, Urine Yellow (Yellow); Glucose, Dipstick Normal (Normal); Ketone-Dipstick Negative (Negative); Leukocyte Esterase-Dipstick Negative /ul (Negative); Nitrite-Dipstick Negative (Negative); Occult Blood-Urine Negative /ul (Negative); Protein-Dipstick Negative (Negative); Urine Bilirubin Dipstick Negative (Negative); Urine Clarity Clear (Clear); Urine Urobilinogen Normal (Normal)
[2019-11-07 12:15] LABS: Squamous Epithelial Cells - UA 0-5 SEEN /hpf (5-10)
== END 2019-11-07 12:44 | disposition home or self-care (01) ==
PROVIDERS: Emergency Provider Emergency Medicine; PCP Family Medicine Geriatric Medicine; Referring Provider Family Medicine Geriatric Medicine
DX: R19.7 Diarrhea, unspecified (principal); I10 Essential (primary) hypertension; E03.9 Hypothyroidism, unspecified; Z86.73 Personal history of transient ischemic attack (TIA), and cerebral infarction without residual deficits
CPT/HCPCS: 80048; 81001; 85025; 99283; A4216

== ENCOUNTER 2019-11-13 08:53 | Inpatient (IN) | payer MEDICARE, SELFPAY ==
[2019-11-13 08:54] VITALS: BP 166/149; PULSE 71; RESP 16; TEMP 36.6; O2SAT 99; BMI 25.8
--- NOTE | 2019-11-13 08:57 | RAD_ITS ---
STUDY: X-RAY CHEST REASON FOR EXAM: Female, 84 years old. PRE OP TECHNIQUE: Frontal and lateral views COMPARISON: None. FINDINGS: The lungs are clear and expanded. There is no demonstrated pleural abnormality. Normal size heart. Normal mediastinum and janis. Normal visualized pulmonary arteries. Calcified visualized aortic arch and descending thoracic aorta. Normal visualized thoracic spine. Degenerative changes of the shoulders. There is no demonstrated abnormality of the visualized soft tissue structures of the upper abdomen. RAD/Chest PA and Lateral IMPRESSION: Normal x-ray examination of the chest. Electronically Signed: Augustin Chase DO at 10:04 EST Tel [phone], Service support ,
--- NOTE | 2019-11-13 08:57 | EKG12_ITS ---
Test Reason : Blood Pressure : / mmHG Vent. Rate : 060 BPM Atrial Rate : 060 BPM P-R Int : 130 ms QRS Dur : 092 ms QT Int : 424 ms P-R-T Axes : 027 -14 025 degrees QTc Int : 424 ms Normal sinus rhythm Normal ECG Confirmed by NICOLE MICHAUD, YAMILA ([id number]), dictionary editor JOHN YOUNG ([id number]) on 11/18/2019 2:47:32 PM Referred By: SAKSHI Confirmed By:CONNER RIVERA MD
--- NOTE | 2019-11-13 08:58 | RAD_ITS ---
STUDY: X-RAY - RIGHT KNEE REASON FOR EXAM: Female, 84 years old. FELL THIS MORNING TECHNIQUE: 2 view(s) of the knee. COMPARISON: None. FINDINGS: Normal visualized distal femur. Normal visualized proximal tibia and fibula. Normal proximal tibiofibular articulation. Normal medial femorotibial compartment. Normal lateral femorotibial compartment. Patellar fracture is noted with displaced fragments. Chondrocalcinosis of the menisci. The soft tissue structures are unremarkable. Vascular calcifications. RAD/Knee 1 or 2 Views IMPRESSION: Patella fracture. Electronically Signed: Augustin Chase DO at 10:06 EST Tel [phone], Service support ,
[2019-11-13] MEDS: Ondansetron 4 MG/2 ML Vial IV (09:26)
[2019-11-13] MEDS: Morphine 4 MG/ML Syringe IV (09:26)
--- NOTE | 2019-11-13 09:27 | ED.DCSUM_ITS ---
History of Present Illness Chief Complaint: Lower Extremity Injury Informant: Patient Onset: Today Mechanism/Context: Blunt Injury, Fall Quality of Pain: Dull, Aching Location: Right patella Current Severity: Mild Maximum Severity: Severe Worsened by: Movement Relieved by: Nothing Associated Symptoms: Loss of function, Inability to ambulate. Negative for: Parasthesias, Weakness, Loss of consciousness, Amnesia Narrative: Patient is 84-year-old woman who was going to the mailbox. She slipped. She landed on her right knee. She is unable to move her right lower extremity at the knee. She denies paresthesia, anesthesia medics. She reports fracture left knee 20 years ago. She was cared for by an orthopedist in [place] at that time. She has no local orthopedist. She denies head trauma. Denies neck pain. She denies paresthesia, anesthesia motor is present at time of the injury. She denies cardiac respiratory symptoms. She denies GI symptoms. Prior similar symptoms: Yes Recent Illness/Hospitalization: No - Past Medical History (1) Cerebral aneurysm Status: Chronic (2) GERD (gastroesophageal reflux disease) Status: Chronic (3) History of left knee replacement Status: Chronic (4) Hypertension Status: Chronic (5) Hypothyroid Status: Chronic (6) Pulmonary embolism Status: Chronic (7) S/P AAA repair Status: Chronic (8) TIA (transient ischemic attack) Status: Chronic Past Medical History - Allergies and Home Meds Allergies/Adverse Reactions: Allergies No Known Allergies Allergy (Verified 11/07/19 10:31) Primary Care Physician: Sagar Horton Chi, MD [Primary Care Provider] - Prior records reviewed: Yes Surgical History: noncontributory Lives: Alone Smoking Status: Never smoker Alcohol: None Drugs: None Review of Systems General: Denies: Chills, Fever, Sweats Eyes: Denies: Visual changes - bilaterally, Blurred Vision - bilaterally, Diplopia ENT: Denies: Bilateral ear pain, Rhinorrhea, Sore throat Cardiovascular: Denies: Chest pain, Palpitations Respiratory: Denies: Dyspnea, Cough, Dyspnea on exertion Gastrointestinal: Denies: Abdominal pain, Nausea, Vomiting, Diarrhea, Melena, Hematochezia Genitourinary: Denies: Dysuria, Hematuria, Frequency Musculoskeletal: Reports: Swelling, Extremity Pain, - - Is an obvious fracture through the right patella. This fracture is horizontal. This would explain why she is unable to extend or flex her knee. DP and PT pulse are palpable. There is no pain the patient of the lateral medial malleolus. There is no pain the patient over the right foot or toes. There is no pain the patient over the greater trochanteric region. No pain the patient over the pelvis.. Denies: Myalgias, Arthralgias, Neck pain, Back pain Skin: Denies: Rash, Wounds Neurological: Denies: Headache, Weakness, Numbness Hematologic: Denies: Easy bruising, Easy bleeding Allergy: Denies: Uticaria Physical Exam Vital Signs/Narrative: Vital Signs Temp Pulse Resp BP Pulse Ox 11/13/19 08:54 97.8 F 71 16 166/149 H 99 Inital Vital Signs reviewed: Yes General: Well nourished, Well developed Head: Normocephalic, Atraumatic Eyes: Perrl, EOMI. Negative for: Pale conjunctiva, Scleral icterus ENT: TM's clear, No hemotympanum or drainage, No trauma. Negative for: Hemotympanum, Otorrhea, Nasal trauma, Nasal septal hematoma Neck: Nontender, Full ROM. Negative for: Spinal Tenderness, Paraspinal Tenderness Cardiovascular: Regular rate, Regular rhythm, No murmurs, Normal S1, Normal S2 Respiratory: No distress, CTA bilaterally, Chest nontender Abdomen: Soft, Nontender, Nondistended, Normal bowel sounds Rectal: Deferred Back: Nontender. Negative for: CVA Tenderness - Right, CVA Tenderness - Left Extremeties: There is a obvious deformity of the patella. There is a horizontal fracture. Previously documented under review of systems. Skin: Normal color, No rash Neurological: Alert, Oriented x3, Cranial nerves II-XII grossly intact, Normal Strength, Normal Sensation. Negative for: Normal DTR, Normal Gait Psychological: Normal affect - Glascow Coma Scale Eye Opening: Spontaneous Motor: Obeys Commands Verbal: Oriented Coma Scale Total: 15 Diagnostic/Tx/Re-eval Chest X-Ray - ED: 2 View, Read by ED Physician, - - Chest x-ray reveals no acute changes. Cardiac silhouette and size is normal. There is evidence of granulomatous disease. There is chronic pulmonary changes noted. There is evidence of osteoarthritis as well. The chest x-ray is unchanged from most recent 03 Feb 2019. Two-view x-ray of the knee reveals a 100% displaced trans-burst/horizontal right patella fracture. 11/13/19 08:57 Chest PA and Lateral [RAD] Stat 11/13/19 08:58 Knee 1 or 2 Views [RAD] Stat Laboratory Results 11/13/19 11/13/19 09:30 09:30 WBC 5.8 RBC 4.63 Hgb 14.5 Hct 43.3 MCV 93.5 MCH 31.3 MCHC 33.5 RDW Std Deviation 46.3 H RDW Coeff of Pj 13.5 Plt Count 183 MPV 11.7 Sodium 143 Potassium 3.5 Chloride 112 H Carbon Dioxide 25.0 Anion Gap 6 BUN 7 Creatinine 0.85 Estim Creat Clear Calc 37.18 Est GFR (MDRD) Af Amer 82 Est GFR (MDRD) Non-Af 67 BUN/Creatinine Ratio 8.2 L Glucose 90 Calcium 9.1 - Medical Decision Making Patient has obvious deformity of the right patella. X-ray was obtained to delineate if any other injury. Appropriate blood work and EKG was obtained for preoperative clearance. ED Disposition - Plan for ED Patient: Disposition: Acute Care Hospital [facility] Diagnosis: Displaced fracture of right patella Referrals: Sagar Horton Chi, MD [Primary Care Provider] -
[2019-11-13 09:43] LABS: Hematocrit 43.3 % (37-47); Hemoglobin 14.5 g/dL (12.0-15.0); Mean Corp Hgb Conc 33.5 g/dL (32-36); Mean Corpuscular Hgb 31.3 pg (27.0-32.0); Mean Corpuscular Volume 93.5 fL (81-99); Mean Platelet Vol. 11.7 fl (6.2-12.0); Platelet Count 183 K/mm3 (150-450); RBC Distribution Width CV 13.5 % (11.6-14.6); RBC Distribution Width SD 46.3 fl (35.1-43.9); Red Blood Count 4.63 M/mm3 (4.2-5.4); White Blood Count 5.8 K/mm3 (4.4-11.0)
[2019-11-13 09:55] LABS: Anion Gap 6 (5-15); BUN 7 mg/dL (7-18); BUN/Creat Ratio 8.2 RATIO (10-20); Calcium,Total 9.1 mg/dL (8.5-10.1); Chloride 112 mmol/L (98-107); Creatinine, Serum 0.85 mg/dL (0.55-1.02); EST Glomerular Filtration Rate 67 mL/min (>60); Est Glom Filt Rate - Afr Amer 82 mL/min (>60); Estimated Creatinine Clearance 37.18 ml/min; Glucose 90 mg/dL (74-106); Potassium 3.5 mmol/L (3.5-5.1); Sodium Level 143 mmol/L (136-145)
--- NOTE | 2019-11-13 10:32 | NURSING ---
MED SURG JOPPERI DISPLACED RT PATELLA FX
[2019-11-13 10:34] VITALS: BP 149/74; PULSE 61; RESP 14; O2SAT 99
--- NOTE | 2019-11-13 10:41 | CT_ITS ---
STUDY: CT LEFT KNEE WITHOUT CONTRAST REASON FOR EXAM: Female, 84 years old. KNEE PAIN RADIATION DOSAGE (If Supplied By Facility): CTDIvol = ( 15.35 ) mGy, DLP = ( 862.26 ) mGycm TECHNIQUE: Transaxial CT imaging of the knee was performed. Coronal and sagittal images were reformatted. Individualized dose optimization techniques were used for this CT. COMPARISON: None. FINDINGS: Knee replacement is in radiographic alignment without evidence of periimplant lucency or fracture. [place] artifact limits exam. Normal proximal tibiofibular articulation. There is a small joint effusion. The quadriceps tendon is grossly normal. The patellar tendon is grossly normal. Extensive arterial atherosclerosis. CT/Extremity Lower without Contra IMPRESSION: Knee replacement without evidence of fracture. Small joint effusion. Electronically Signed: Isidro Perry MD ([place]) at 13:18 EST , Service support ,
[2019-11-13 11:02] VITALS: PULSE 56; RESP 21; O2SAT 97
[2019-11-13 11:35] VITALS: BMI 21.9; BMI 22.0
[2019-11-13 11:44] VITALS: BP 151/75; PULSE 60; RESP 16; TEMP 36.7; O2SAT 99
--- NOTE | 2019-11-13 12:24 | CT_ITS ---
STUDY: CT RIGHT KNEE WITHOUT CONTRAST REASON FOR EXAM: Female, 84 years old. PATELLA FX, RT KNEE RADIATION DOSAGE (If Supplied By Facility): CTDIvol = ( 15.35 ) mGy, DLP = ( 862.26 ) mGycm TECHNIQUE: Transaxial CT imaging of the knee was performed. Coronal and sagittal images were reformatted. Individualized dose optimization techniques were used for this CT. COMPARISON: None. FINDINGS: There is diffuse osteopenia. There is degenerative narrowing of the medial compartment. Mild narrowing of the lateral compartment with chondrocalcinosis. Normal proximal tibiofibular articulation. There is no joint effusion. The quadriceps tendon is grossly normal. Transverse dominant fracture of the patella is identified with approximately 1.6 cm of displacement/retraction (sagittal image 29). Normal Hoffa''s fat pad. There is soft tissue swelling/edema anterior and medial/lateral to the patella. Vascular calcifications are identified. CT/Extremity Lower without Contra IMPRESSION: 1. Patella fracture with associated soft tissue swelling. Electronically Signed: Isidro Perry MD ([place]) at 13:17 EST , Service support ,
--- NOTE | 2019-11-13 12:50 | PCM.HP.STD ---
Problem List (1) Patellar fracture Status: Acute Qualifiers: Encounter type: initial encounter Fracture type: closed Fracture morphology: unspecified fracture morphology Fracture alignment: displaced Laterality: right Qualified Code(s): S82.001A - Unspecified fracture of right patella, initial encounter for closed fracture (2) TIA (transient ischemic attack) Status: Chronic (3) Cerebral aneurysm Status: Chronic (4) Hypertension Status: Chronic Qualifiers: Hypertension type: essential hypertension Qualified Code(s): I10 - Essential (primary) hypertension (5) Pulmonary embolism Status: Resolved (6) GERD (gastroesophageal reflux disease) Status: Chronic Qualifiers: Esophagitis presence: esophagitis presence not specified Qualified Code(s): K21.9 - Gastro-esophageal reflux disease without esophagitis (7) S/P AAA repair Status: Chronic (8) Hypothyroid Status: Chronic Qualifiers: Hypothyroidism type: unspecified Qualified Code(s): E03.9 - Hypothyroidism, unspecified (9) History of left knee replacement Status: Chronic History of Present Illness Date of Admission: 11/13/19 Chief Complaint: fall The patient is a 84 year old F who was walking to get her paper today. Patient made a point of walking in the snow but unfortunately patient was walking on ice and then fell and landed directly on her knee. Patient had extreme pain and felt that something was broken and presented to the emergency room. In the emergency room, patient was noted to have a displaced patellar fracture. was contacted through the emergency room and will be seen the patient in consultation. [] Past Medical History Past Medical History (Chronic Problems): Chronic Problems TIA (transient ischemic attack) (Chronic) Cerebral aneurysm (Chronic) Hypertension (Chronic) GERD (gastroesophageal reflux disease) (Chronic) S/P AAA repair (Chronic) Hypothyroid (Chronic) History of left knee replacement (Chronic) Allergies No Known Allergies Allergy (Verified 11/07/19 10:31) Home Medications: Ambulatory Orders Medication Instructions Recorded Levothyroxine [Synthroid] 75 mcg PO DAILY 07/23/13 Zolpidem Tartrate [Ambien] 5 mg PO QHS PRN PRN 07/23/13 Calcium Carbonate/Vitamin D3 1 each PO DAILY 02/10/14 [Calcium 500-Vit D3 400 Tablet] Cholecalciferol (Vitamin D3) 25 mg PO DAILY 02/10/14 [Vitamin D3] Cyanocobalamin [Vitamin B12] 500 mcg PO DAILY@0800 02/10/14 Denosumab [Prolia] 60 mg SQ .6MONTHS 05/29/19 Hydroxychloroquine Sulfate 300 mg PO DAILY 05/29/19 [Plaquenil] Metoprolol(XL)Succ [Toprol Xl 25 mg PO DAILY 05/29/19 (Beta Caprice)] Thiamine HCl [Vitamin B-1] 250 mg PO DAILY 05/29/19 Cholestyramine/Aspartame 1 packet PO DAILY 11/13/19 [Prevalite Packet] Surgical History: noncontributory Lives: Alone Smoking Status: Never smoker Alcohol: None Drugs: None - *Family History Maternal History Items: - - No coronary artery disease Review of Systems Constitutional: Denies: Anorexia, Night Sweats Eyes: Denies: Blurred vision, Double vision HEENT: Denies: Head Aches, Sinus Congestion, Sinus Drainage Cardiovascular: Denies: Chest Pain, Palpitations Respiratory: Denies: Cough, Shortness of breath at rest, Sputum production Gastrointestinal: Denies: Abdominal Pain, Nausea, Vomiting Genitourinary: Denies: Dysuria Musculoskeletal: Reports: Joint Pain - Right knee pain post fall, Joint Tenderness Skin: Denies: Rash, Wounds Neurological: Denies: Numbness, Tingling, Focal weakness Psychiatric: Denies: Anxiety, Depression Endocrine: Denies: Change in Body Habitus, Heat/ Cold Intolerance Hematologic/ Lymphatic: Denies: Easy Bruising, Easy Bleeding, Hx of blood clot Comment: All other review systems are otherwise negative except for as mentioned above and in HPI. VTE Information - Inpt Only VTE Present on Admission: No VTE Mechan Device Prophylaxis: SCD's VTE Pharm Prophylaxis ordered?: No Reason prophylaxis not ordered:: Procedure Not Indicated - Holding off at this time until patient can undergo surgery. Patient Problems: Active and Suspected Problems Patellar fracture (Acute) - Physical Exam Vitals/I&O's: Vital Signs Temp Pulse Resp BP Pulse Ox 36.7 C 60 16 151/75 H 99 11/13/19 11:44 11/13/19 11:44 11/13/19 11:44 11/13/19 11:44 11/13/19 11:44 Oxygen Delivery Method Room Air Weight: 52.7 kg Body Mass Index (BMI) 21.9 General: Alert, Cooperative, No apparent distress HEENT: Atraumatic, Normocephalic Oral: Moist Mucosa, No Gingival or Mucosal Lesions/ Ulcerations Neck: No Nodes, Trachea Midline Lungs: Clear to auscultation, Normal air movement, No rhonchi, No wheeze, No rales Cardiovascular: Regular rate, Regular Rhythm, Normal S1, Normal S2, No murmurs Abdomen: Bowel Sounds Present, Soft, Non Tender, Non-Distended Extremities: No Calf Tenderness, - - Ecchymosis and hematoma over the right knee. Skin: No rashes, No breakdown Psych/Mental Status: Normal Affect, Appropriate Laboratory Results 11/13/19 09:30: WBC 5.8, RBC 4.63, Hgb 14.5, Hct 43.3, MCV 93.5, MCH 31.3, MCHC 33.5, RDW Std Deviation 46.3 H, RDW Coeff of Pj 13.5, Plt Count 183, MPV 11.7 11/13/19 09:30: Sodium 143, Potassium 3.5, Chloride 112 H, Carbon Dioxide 25.0, Anion Gap 6, BUN 7, Creatinine 0.85, Estim Creat Clear Calc 37.18, Est GFR (MDRD) Af Amer 82, Est GFR (MDRD) Non-Af 67, BUN/Creatinine Ratio 8.2 L, Glucose 90, Calcium 9.1 Current Medications Acetaminophen (Tylenol) 650 mg PO Q6H PRN PRN PRN Reason: Pain Score 1-10/Temp > 100.7 F Glucagon () 1 mg IM .X1 PRN PRN Reason: Hypoglycemia Dextrose (Dextrose 10%-Water) 250 mls @ 999 mls/hr IV .Q16M PRN; Protocol PRN Reason: HYPOGLYCEMIA Sodium Chloride () 250 mls @ 15 mls/hr IV .[id number] PRN PRN Reason: Saline Flush Sodium Chloride () 1,000 mls @ 75 mls/hr IV .[id number] [facility] Stop: 11/13/19 19:29 Morphine Sulfate () 4 mg IV Q3H PRN PRN PRN Reason: Pain 4-10/10 Ondansetron HCl (Zofran) 4 mg IV Q8H PRN PRN PRN Reason: NAUSEA/VOMITING Oxycodone HCl (Oxyir) 5 mg PO Q4H PRN PRN PRN Reason: Pain Score 4-5/10 Oxycodone HCl (Oxyir) 10 mg PO Q4H PRN PRN PRN Reason: Pain Score 6-10/10 Sodium Chloride () 10 - 40 ml IV UD PRN PRN Reason: SALINE FLUSH Assessment/Plan All Active Problems Pulmonary embolism (Resolved) Patellar fracture (Acute) 1. Right patellar fracture NSQIP shows that patient is a below average risk patient. Medically cleared to proceed with surgery. check 25 OH d level NPO for surgery IVF until able to eat 2. VTE prophylaxis: SCDs for now. Chemical prophylaxis post surgery. Code Visit Inpatient E&M: [id number] Init Hosp L2
[2019-11-13] MEDS: 0.9% Normal Saline 1,000 ML 75 ML IV (13:21)
[2019-11-13] MEDS: oxyCODONE 5 MG Tablet 10 MG PO (16:15)
[2019-11-13 17:23] VITALS: BP 113/60; PULSE 79; RESP 18; TEMP 37.3; O2SAT 93
[2019-11-13 21:02] VITALS: BP 117/69; PULSE 76; RESP 18; TEMP 36.7; O2SAT 97
[2019-11-14] VITALS (14 sets, daily range): BP systolic 144–186; BP diastolic 57–87; PULSE 67–84; RESP 16–18; TEMP 36.4–37.3; O2SAT 90–99; BMI 22.4; BMI 22.0
[2019-11-14] MEDS: oxyCODONE 5 MG Tablet 10 MG PO ×4 (00:04→20:19)
[2019-11-14] MEDS: 0.9% Normal Saline 1,000 ML 75 ML IV ×2 (02:28→11:31)
[2019-11-14 06:09] LABS: Thyroid Stim Hormone (TSH) 1.92 uIU/mL (0.358-3.74)
--- NOTE | 2019-11-14 08:00 | RAD_ITS ---
STUDY: X-RAY - RIGHT KNEE REASON FOR EXAM: Female, 84 years old. ORIF PATELLA TECHNIQUE: 2 fluoroscopic view(s) of the knee. 22.7 seconds of fluoroscopy time. COMPARISON: None. FINDINGS: 2 fluoroscopic images demonstrate placement of 2 fixation screws of the patella, spanning patellar fracture. There is gross radiographic alignment. RAD/Knee 1 or 2 Views IMPRESSION: Fluoroscopic guidance for patellar fracture fixation. Electronically Signed: Isidro Perry MD ([place]) at 12:11 EST , Service support ,
[2019-11-14] MEDS: Lactated Ringers 1,000 ML 100 ML IV (09:01)
[2019-11-14] MEDS: Bupiv/Epi 0.25% 30 ML Vial (09:33)
--- NOTE | 2019-11-14 09:47 | PCM.CONS.GEN ---
Reason for Consult Date of Consultation: 11/14/19 Reason for Consultation: Right patella fracture History of Present Illness: The patient is a 84 year old F pleasant female slip and fall on ice right need to curb no prior injuries no other complaints Past Medical History Past Medical History (Chronic Problems): Chronic Problems TIA (transient ischemic attack) (Chronic) Cerebral aneurysm (Chronic) Hypertension (Chronic) GERD (gastroesophageal reflux disease) (Chronic) S/P AAA repair (Chronic) Hypothyroid (Chronic) History of left knee replacement (Chronic) Allergies No Known Allergies Allergy (Verified 11/07/19 10:31) Home Medications: Ambulatory Orders Medication Instructions Recorded Levothyroxine [Synthroid] 75 mcg PO DAILY 07/23/13 Zolpidem Tartrate [Ambien] 5 mg PO QHS PRN PRN 07/23/13 Calcium Carbonate/Vitamin D3 1 each PO DAILY 02/10/14 [Calcium 500-Vit D3 400 Tablet] Cholecalciferol (Vitamin D3) 25 mg PO DAILY 02/10/14 [Vitamin D3] Cyanocobalamin [Vitamin B12] 500 mcg PO DAILY@0800 02/10/14 Denosumab [Prolia] 60 mg SQ .6MONTHS 05/29/19 Hydroxychloroquine Sulfate 300 mg PO DAILY 05/29/19 [Plaquenil] Metoprolol(XL)Succ [Toprol Xl 25 mg PO DAILY 05/29/19 (Beta Caprice)] Thiamine HCl [Vitamin B-1] 250 mg PO DAILY 05/29/19 Cholestyramine/Aspartame 1 packet PO DAILY 11/13/19 [Prevalite Packet] Surgical History: noncontributory Lives: Alone Smoking Status: Never smoker Alcohol: None Drugs: None - *Family History Maternal History Items: - - No coronary artery disease Patient Problems: Active and Suspected Problems Patellar fracture (Acute) Objective: CT and x-ray demonstrate transverse patella fracture with comminuted inferior fragment displaced placed - Physical Exam Vitals/I&O's: Vital Signs Temp Pulse Resp BP Pulse Ox 98.2 F 67 18 144/68 H 95 11/14/19 06:00 11/14/19 06:00 11/14/19 06:00 11/14/19 06:00 11/14/19 06:00 Oxygen Delivery Method Room Air Weight: 118 lb 13.266 oz Body Mass Index (BMI) 22.4 Intake and Output for Last 24 Hours 11/12/19 11/13/19 11/14/19 23:59 23:59 23:59 Intake Total 280 / 380 1083.75 / 1083.75 Balance 280 / 380 1083.75 / 1083.75 General: Alert, Oriented x3, Cooperative, No apparent distress Extremities: - - No open wounds ecchymosis presents compartment soft Laboratory Results 11/13/19 09:30: Sodium 143, Potassium 3.5, Chloride 112 H, Carbon Dioxide 25.0, Anion Gap 6, BUN 7, Creatinine 0.85, Estim Creat Clear Calc 37.18, Est GFR (MDRD) Af Amer 82, Est GFR (MDRD) Non-Af 67, BUN/Creatinine Ratio 8.2 L, Glucose 90, Calcium 9.1 11/14/19 05:10: TSH 1.92 Current Medications Acetaminophen (Tylenol) 650 mg PO Q6H PRN PRN PRN Reason: Pain Score 1-10/Temp > 100.7 F Glucagon () 1 mg IM .X1 PRN PRN Reason: Hypoglycemia Dextrose (Dextrose 10%-Water) 250 mls @ 999 mls/hr IV .Q16M PRN; Protocol PRN Reason: HYPOGLYCEMIA Sodium Chloride () 250 mls @ 15 mls/hr IV .[id number] PRN PRN Reason: Saline Flush Sodium Chloride () 1,000 mls @ 75 mls/hr IV .[id number] [facility] Last Admin: 11/14/19 02:28 Dose: 75 mls/hr Documented by: Morphine Sulfate () 4 mg IV Q3H PRN PRN PRN Reason: Pain 4-10/10 Ondansetron HCl (Zofran) 4 mg IV Q8H PRN PRN PRN Reason: NAUSEA/VOMITING Oxycodone HCl (Oxyir) 5 mg PO Q4H PRN PRN PRN Reason: Pain Score 4-5/10 Oxycodone HCl (Oxyir) 10 mg PO Q4H PRN PRN PRN Reason: Pain Score 6-10/10 Last Admin: 11/14/19 00:04 Dose: 10 mg Documented by: Sodium Chloride () 10 - 40 ml IV UD PRN PRN Reason: SALINE FLUSH Assessment/Plan All Active Problems Pulmonary embolism (Resolved) Patellar fracture (Acute) Comminuted right patellar fracture plan for open reduction internal fixation
--- NOTE | 2019-11-14 09:54 | OP.PCM_ITS ---
Report of Operation Date of Procedure: 11/14/19 Description of Surgical Findings:: Preoperative diagnosis: Right comminuted patella fracture Postoperative diagnosis: Same Procedure: Open reduction internal fixation right patella Anesthesia: General EBL: 50 Tourniquet time 62 minutes 250 mmHg Complications: None Condition: Stable to PACU Indication for procedure: Pleasant 84-year-old female ground-level fall on ice with right need to curb sustained closed comminuted fracture admitted to hospitalist service and cleared, risk benefits and alternatives were reviewed including risk of bleeding infection nerve, artery, bone, tissue damage, blood clot need for further surgery and continued pain. Procedure: Patient was met the preoperative holding area once again the operative extremity was then 5 by both patient and physician was marked. Patient was brought back to the operative room transfer the operating table in supine position. Anesthesia was started well-padded tourniquet was placed in the right upper thigh she was prepped and draped in usual sterile fashion and a timeout was called to ensure the proper patient procedure and extremity were being contemplated. An Esmarch was used to exsanguinate the extremity the tourniquet was inflated 250 mmHg a 10 blade scalpel was used to make a midline incision down through the skin subcutaneous and bursal tissue full-thickness flaps were elevated medial and lateral along the joint capsule the fracture was displaced irrigation of the knee joint was performed there was noted to be some comminuted pieces inferiorly and laterally. With a hgyea-ly-pvoad reduction clamp the fracture was reduced and to cannulated partially threaded were inserted they were inserted cephalad to caudad secondary to comminution inferiorly and acted more as a rafting screw laterally fiber tape was then passed through the cannulated screws in a [id number]-[id number]-ovoyo fashion and was secured with a knot additional FiberWire was used to repair the medial and lateral retinaculum and a cerclage FiberWire was also performed as there was some comminuted fractures peripherally. Scopic images were saved to the PACS system the knee was thoroughly irrigated skin was closed with 2-0 Vicryl followed by tamra 0.25% Marcaine with epinephrine was injected into the ann marie- patellar capsule as well as the skin and dressing was applied in the form of Mepilex web roll and an Esvin wrap knee immobilizer patient tolerated the procedure well all counts were correct she was brought back to the PACU in stable condition. She will be allowed to weight-bear as tolerated as long as her knee is in full extension with knee immobilizer on. We will start DVT prophylaxis with LIYAHs BRITTANY chou and Erick in the a.m.
[2019-11-14] MEDS: Cefazolin 1 GM/50 ML BAG IV ×2 (10:10→18:02)
--- NOTE | 2019-11-14 10:54 | PCM.PN.HOSP ---
Patient Problems: Active and Suspected Problems Patellar fracture (Acute) Reason for Visit: patellar fxr Subjective: Feeling fine post-op Vitals/I&O's: Vital Signs Temp Pulse Resp BP Pulse Ox 36.4 C L 74 16 149/70 H 99 11/14/19 09:50 11/14/19 10:45 11/14/19 10:45 11/14/19 10:45 11/14/19 10:45 Oxygen Delivery Method Room Air Weight: 53.9 kg Body Mass Index (BMI) 22.4 Intake and Output for Last 24 Hours 11/12/19 11/13/19 11/14/19 23:59 23:59 23:59 Intake Total 280 / 380 2083.75 / 2083.75 Balance 280 / 380 2083.75 / 2082.75 General: Alert, No apparent distress HEENT: Atraumatic, Normocephalic Oral: Moist Mucosa, No Gingival or Mucosal Lesions/ Ulcerations Neck: No Nodes, Thyroid Normal Size and Texture Lungs: Clear to auscultation, Normal air movement, No rhonchi, No wheeze, No rales Cardiovascular: Regular rate, Regular Rhythm, Normal S1, Normal S2, No murmurs Abdomen: Bowel Sounds Present, Soft, Non Tender, Non-Distended Extremities: - - soft immobilizer on right leg--did not remove. Psych/Mental Status: Normal Affect, Appropriate Laboratory Results 11/14/19 05:10: TSH 1.92 Current Medications Acetaminophen (Tylenol) 650 mg PO Q6H PRN PRN PRN Reason: Pain Score 1-10/Temp > 100.7 F Apixaban (Eliquis) 2.5 mg PO BID [facility] Glucagon () 1 mg IM .X1 PRN PRN Reason: Hypoglycemia Dextrose (Dextrose 10%-Water) 250 mls @ 999 mls/hr IV .Q16M PRN; Protocol PRN Reason: HYPOGLYCEMIA Sodium Chloride () 250 mls @ 15 mls/hr IV .[id number] PRN PRN Reason: Saline Flush Sodium Chloride () 1,000 mls @ 75 mls/hr IV .[id number] [facility] Last Infusion: 11/14/19 09:00 Dose: Infused Documented by: Cefazolin Sodium () 1 gm in 50 mls @ 100 mls/hr IV Q8H [facility] Last Admin: 11/14/19 10:10 Dose: 100 mls/hr Documented by: Lactated Ringer's () 1,000 mls @ 100 mls/hr IV .Q10H [facility] Last Admin: 11/14/19 09:01 Dose: 100 mls/hr Documented by: Morphine Sulfate () 4 mg IV Q3H PRN PRN PRN Reason: Pain 4-10/10 Ondansetron HCl (Zofran) 4 mg IV Q8H PRN PRN PRN Reason: NAUSEA/VOMITING Oxycodone HCl (Oxyir) 5 mg PO Q4H PRN PRN PRN Reason: Pain Score 4-5/10 Oxycodone HCl (Oxyir) 10 mg PO Q4H PRN PRN PRN Reason: Pain Score 6-10/10 Last Admin: 11/14/19 00:04 Dose: 10 mg Documented by: Sodium Chloride () 10 - 40 ml IV UD PRN PRN Reason: SALINE FLUSH STROKE Vital Signs/Narrative: Vital Signs Temp Pulse Resp BP Pulse Ox 11/14/19 10:45 74 16 149/70 H 99 11/14/19 10:30 74 16 160/70 H 97 11/14/19 10:15 79 16 146/79 H 96 11/14/19 10:00 82 16 161/73 H 90 11/14/19 09:50 36.4 C L 84 16 152/75 H 96 Medical Necessity - Tobacco Use Smoking Status: Never smoker Assessment/Plan All Active Problems Pulmonary embolism (Resolved) Patellar fracture (Acute) 1. Right patellar fracture s/p ORIF on 11/14 weight bearing and activity per ortho follow up 25-OH d level 2. VTE prophylaxis: apixaban Code Visit Inpatient E&M: 19820 Subs Hosp L2
[2019-11-14] MEDS: Acetaminophen 325 MG Tablet 650 MG PO (11:29)
[2019-11-14] MEDS: Morphine 4 MG/ML Syringe IV (21:22)
[2019-11-14] MEDS: 0.9% Saline Lock 10 ML Syringe IV (21:22)
[2019-11-14] MEDS: Metoprolol(XL)Succ 25 MG Tablet PO (22:08)
[2019-11-15 00:20] VITALS: BP 162/83; PULSE 80; RESP 16; TEMP 36.9; O2SAT 95
[2019-11-15] MEDS: Morphine 4 MG/ML Syringe IV ×2 (00:23→07:31)
[2019-11-15] MEDS: 0.9% Saline Lock 10 ML Syringe IV ×3 (00:24→07:31)
[2019-11-15] MEDS: 0.9% Normal Saline 1,000 ML 75 ML IV ×2 (00:24→15:17)
[2019-11-15] MEDS: Cefazolin 1 GM/50 ML BAG IV ×2 (02:06→10:30)
[2019-11-15 02:09] VITALS: BP 145/77; PULSE 80; RESP 16; TEMP 37.2; O2SAT 96
[2019-11-15] MEDS: Ondansetron 4 MG/2 ML Vial IV (05:54)
[2019-11-15 06:27] LABS: Absolute Neutrophil Count 5.6 X10^3/uL (2.0-7.7); Basophil# 0.03 X10^3/uL; Basophil% 0.4 % (0-1); Eosinophil# 0.07 X10^3/uL; Eosinophils% 0.9 % (0-5); Hematocrit 36.7 % (37-47); Hemoglobin 11.7 g/dL (12.0-15.0); Lymphocyte % 11.6 % (19-41); Mean Corp Hgb Conc 31.9 g/dL (32-36); Mean Corpuscular Hgb 30.6 pg (27.0-32.0); Mean Corpuscular Volume 96.1 fL (81-99); Mean Platelet Vol. 11.7 fl (6.2-12.0); Monocyte# 1.06 X10^3/uL; Monocyte% 13.7 % (0-10); NRBC Flagged by Analyzer 0 % (0-5); Neutrophil # 5.64 X10^3/uL (2.7-7.7); Platelet Count 164 K/mm3 (150-450); RBC Distribution Width CV 13.6 % (11.6-14.6); RBC Distribution Width SD 48.7 fl (35.1-43.9); Red Blood Count 3.82 M/mm3 (4.2-5.4); White Blood Count 7.7 K/mm3 (4.4-11.0)
[2019-11-15 07:34] VITALS: BP 182/69; PULSE 74; RESP 18; TEMP 37.1; O2SAT 93
--- NOTE | 2019-11-15 08:14 | PN_ITS ---
Patient Problems: Active and Suspected Problems Patellar fracture (Acute) Reason for Visit: patellar fxr Subjective: No appetite. Pain with placement of compression stocking over her right knee. Received morphine for pain (no oxycodone, however). Vitals/I&O's: Vital Signs Temp Pulse Resp BP Pulse Ox 37.1 C 74 18 182/69 H 93 11/15/19 07:34 11/15/19 07:34 11/15/19 07:34 11/15/19 07:34 11/15/19 07:34 Oxygen Delivery Method Room Air Weight: 53.9 kg Body Mass Index (BMI) 22.4 Intake and Output for Last 24 Hours 11/13/19 11/14/19 11/15/19 23:59 23:59 23:59 Intake Total 280 / 380 3510.83 / 3610.83 917.5 / 917.5 Output Total 350 / 350 Balance 280 / 380 3510.83 / 3260.83 567.5 / 567.5 General: Alert, Cooperative, No apparent distress Oral: Moist Mucosa, No Gingival or Mucosal Lesions/ Ulcerations Neck: No Nodes, Trachea Midline Lungs: Clear to auscultation, Normal air movement, No rhonchi, No wheeze, No rales Cardiovascular: Regular rate, Regular Rhythm, Normal S1, Normal S2, No murmurs Abdomen: Bowel Sounds Present, Soft, Non Tender, Non-Distended, No Hepato- splenomegaly Extremities: No Calf Tenderness, - - right knee with immobilizer--did not remove. Psych/Mental Status: Normal Affect, Appropriate Laboratory Results 11/15/19 05:18: WBC 7.7, RBC 3.82 L, Hgb 11.7 L, Hct 36.7 L, MCV 96.1, MCH 30.6, MCHC 31.9 L, RDW Std Deviation 48.7 H, RDW Coeff of Pj 13.6, Plt Count 164, MPV 11.7, Immature Gran % (Auto) 0.400, Neut % (Auto) 73.0 H, Lymph % (Auto) 11.6 L, Dyer % (Auto) 13.7 H, Eos % (Auto) 0.9, Baso % (Auto) 0.4, Absolute Neuts (auto) 5.6, Absolute Lymphs (auto) 0.90, Nucleated RBC % 0 11/15/19 05:18: Vitamin D 25-Hydroxy Pending Current Medications Acetaminophen (Tylenol) 650 mg PO Q6H PRN PRN PRN Reason: Pain Score 1-10/Temp > 100.7 F Last Admin: 11/14/19 11:29 Dose: 650 mg Documented by: Apixaban (Eliquis) 2.5 mg PO BID [facility] Calcium/Vitamin D (Os-Kee 500mg + D) 1 tablet PO DAILYCM [facility] Cyanocobalamin (Vitamin B12) 500 mcg PO DAILY@0800 [facility] Glucagon () 1 mg IM .X1 PRN PRN Reason: Hypoglycemia Dextrose (Dextrose 10%-Water) 250 mls @ 999 mls/hr IV .Q16M PRN; Protocol PRN Reason: HYPOGLYCEMIA Sodium Chloride () 250 mls @ 15 mls/hr IV .[id number] PRN PRN Reason: Saline Flush Sodium Chloride () 1,000 mls @ 75 mls/hr IV .[id number] [facility] Last Infusion: 11/15/19 02:36 Dose: 75 mls/hr Documented by: Cefazolin Sodium () 1 gm in 50 mls @ 100 mls/hr IV Q8H [facility] Last Infusion: 11/15/19 02:36 Dose: Infused Documented by: Levothyroxine Sodium (Synthroid) 75 mcg PO DAILY@0600 [facility] Metoprolol Succinate (Toprol Xl (Beta Caprice)) 25 mg PO DAILY [facility] Last Admin: 11/14/19 22:08 Dose: 25 mg Documented by: Morphine Sulfate () 4 mg IV Q3H PRN PRN PRN Reason: Pain 4-10/10 Last Admin: 11/15/19 07:31 Dose: 4 mg Documented by: Ondansetron HCl (Zofran) 4 mg IV Q8H PRN PRN PRN Reason: NAUSEA/VOMITING Last Admin: 11/15/19 05:54 Dose: 4 mg Documented by: Oxycodone HCl (Oxyir) 5 mg PO Q4H PRN PRN PRN Reason: Pain Score 4-5/10 Oxycodone HCl (Oxyir) 10 mg PO Q4H PRN PRN PRN Reason: Pain Score 6-10/10 Last Admin: 11/14/19 20:19 Dose: 10 mg Documented by: Sodium Chloride () 10 - 40 ml IV UD PRN PRN Reason: SALINE FLUSH Last Admin: 11/15/19 07:31 Dose: 10 ml Documented by: Thiamine HCl (Vitamin B1) 250 mg PO DAILY@0800 [facility] Zolpidem Tartrate (Ambien (Generic)) 5 mg PO QHS PRN PRN PRN Reason: SLEEP STROKE Vital Signs/Narrative: Vital Signs Temp Pulse Resp BP Pulse Ox 11/15/19 07:34 37.1 C 74 18 182/69 H 93 Medical Necessity - Tobacco Use Smoking Status: Never smoker Assessment/Plan All Active Problems Pulmonary embolism (Resolved) Patellar fracture (Acute) 1. Right patellar fracture * s/p ORIF on 11/14 * weight bearing and activity per ortho * follow up 25-OH d level * morphine being given over oxycodone though it is clearly in the orders: if oral agent available for same pain score, use IV if patient unable to take PO or oral treatment is ineffective. Notified charger operator. Will DC morphine and continue with oxycodone that has already been ordered 2. VTE prophylaxis: apixaban 3. Disposition: seen by PT who recommends rehab. Will await insurance authorization. Code Visit Inpatient E&M: 57117 Subs Hosp L2
[2019-11-15] MEDS: Cyanocobalamin 500 MCG Tablet PO (08:27)
[2019-11-15] MEDS: Levothyroxine 75 MCG Tablet PO (08:27)
[2019-11-15] MEDS: Calcium Carb/Vitamin D 1 TABLET Tablet PO (08:27)
[2019-11-15] MEDS: Thiamine Hydrochloride 100 MG Tablet 250 MG PO (08:27)
[2019-11-15] MEDS: APIXABAN 2.5 MG TABLET PO ×2 (08:32→21:08)
[2019-11-15 08:34] VITALS: PULSE 74
[2019-11-15] MEDS: Metoprolol(XL)Succ 25 MG Tablet PO (08:34)
[2019-11-15 11:30] LABS: Vitamin D,25 Hydroxy 33.5 ng/mL (29.95-100.01)
--- NOTE | 2019-11-15 11:48 | CASEMGMT ---
Addendum entered by Nicky Dominguez 11/15/19 13:07: SW received call from Ashlee at [facility] stating she is able to accept pt. SW updated Ashlee that pt is [employer] so this worker will need to get approval for SNF and then Ashlee can submit for pre-cert. Ashlee states understanding. SW faxed referral to [employer]. SW placed a call to [employer] and left message regarding referral. Plan: [facility] pending pre-cert. Original Note: Social Work Note SW reviewed chart, pt will likely need SNF at discharge. SW met with pt and introduced self and role at [facility]. Pt is alert and orientated x3. Pt states that she lives alone in a one story home with two steps to enter the home. DME include cane. PCP is Dr. Horton and pharmacy is [facility]. Pt states that she was previously independent with ADLs. Pt denied any substance abuse or MH history. SW spoke with pt regarding SNF placement and provided pt with list of SNF that accept pt's insurance. Pt states [facility] choice [facility], second choice is [facility] and third choice is [facility]. SW explained referral process and that pt will need pre-cert. Pt states understanding. SW placed a call to referral line. [facility]CU is not accepting pt at this time. YAMEL placed a call to [facility], [facility] is not in network with pt's insurance. YAMEL placed a call to [facility], Ashlee is not available at this time. SW left message for Ashlee to call this worker regarding referral. SW faxed referral. Plan: SNF pending acceptance and pre-cert Nicky Dominguez TESTBOARD OPERATOR, WREATH INSPECTOR
--- NOTE | 2019-11-15 12:32 | PCM.PN.ORT ---
Patient Problems: Active and Suspected Problems Patellar fracture (Acute) Subjective: Seen and examined doing okay complain of pain no other complaints - Physical Exam Vitals/I&O's: Vital Signs Temp Pulse Resp BP Pulse Ox 98.8 F 74 18 182/69 H 93 11/15/19 07:34 11/15/19 08:34 11/15/19 07:34 11/15/19 07:34 11/15/19 07:34 Oxygen Delivery Method Room Air Weight: 118 lb 13.266 oz Body Mass Index (BMI) 22.4 Intake and Output for Last 24 Hours 11/13/19 11/14/19 11/15/19 23:59 23:59 23:59 Intake Total 280 / 380 3510.83 / 3610.83 1560.0 / 1560.0 Output Total 350 / 350 Balance 280 / 380 3510.83 / 3260.83 1210.0 / 1210.0 General: Alert, Oriented x3, Cooperative, No apparent distress Extremities: - - Dressing clean dry and intact compartments soft neurovascular intact Laboratory Results 11/15/19 05:18: WBC 7.7, RBC 3.82 L, Hgb 11.7 L, Hct 36.7 L, MCV 96.1, MCH 30.6, MCHC 31.9 L, RDW Std Deviation 48.7 H, RDW Coeff of Pj 13.6, Plt Count 164, MPV 11.7, Immature Gran % (Auto) 0.400, Neut % (Auto) 73.0 H, Lymph % (Auto) 11.6 L, Ida % (Auto) 13.7 H, Eos % (Auto) 0.9, Baso % (Auto) 0.4, Absolute Neuts (auto) 5.6, Absolute Lymphs (auto) 0.90, Nucleated RBC % 0 11/15/19 05:18: Vitamin D 25-Hydroxy 33.5 Current Medications Acetaminophen (Tylenol) 650 mg PO Q6H PRN PRN PRN Reason: Pain Score 1-10/Temp > 100.7 F Last Admin: 11/14/19 11:29 Dose: 650 mg Documented by: Apixaban (Eliquis) 2.5 mg PO BID [facility] Last Admin: 11/15/19 08:32 Dose: 2.5 mg Documented by: Calcium/Vitamin D (Os-Kee 500mg + D) 1 tablet PO DAILYCM [facility] Last Admin: 11/15/19 08:27 Dose: 1 tablet Documented by: Cyanocobalamin (Vitamin B12) 500 mcg PO DAILY@0800 [facility] Last Admin: 11/15/19 08:27 Dose: 500 mcg Documented by: Glucagon () 1 mg IM .X1 PRN PRN Reason: Hypoglycemia Dextrose (Dextrose 10%-Water) 250 mls @ 999 mls/hr IV .Q16M PRN; Protocol PRN Reason: HYPOGLYCEMIA Sodium Chloride () 250 mls @ 15 mls/hr IV .[id number] PRN PRN Reason: Saline Flush Sodium Chloride () 1,000 mls @ 75 mls/hr IV .[id number] [facility] Last Infusion: 11/15/19 11:00 Dose: 75 mls/hr Documented by: Cefazolin Sodium () 1 gm in 50 mls @ 100 mls/hr IV Q8H [facility] Last Infusion: 11/15/19 11:00 Dose: Infused Documented by: Levothyroxine Sodium (Synthroid) 75 mcg PO DAILY@0600 [facility] Last Admin: 11/15/19 08:27 Dose: 75 mcg Documented by: Metoprolol Succinate (Toprol Xl (Beta Caprice)) 25 mg PO DAILY [facility] Last Admin: 11/15/19 08:34 Dose: 25 mg Documented by: Nutritional Formula (Lactose Free) (Ensure Enlive) 120 ml PO 4X/DAY [facility] Last Admin: 11/15/19 10:30 Dose: 120 ml Documented by: Ondansetron HCl (Zofran) 4 mg IV Q8H PRN PRN PRN Reason: NAUSEA/VOMITING Last Admin: 11/15/19 05:54 Dose: 4 mg Documented by: Oxycodone HCl (Oxyir) 5 mg PO Q4H PRN PRN PRN Reason: Pain Score 4-5/10 Oxycodone HCl (Oxyir) 10 mg PO Q4H PRN PRN PRN Reason: Pain Score 6-10/10 Last Admin: 11/14/19 20:19 Dose: 10 mg Documented by: Sodium Chloride () 10 - 40 ml IV UD PRN PRN Reason: SALINE FLUSH Last Admin: 11/15/19 07:31 Dose: 10 ml Documented by: Thiamine HCl (Vitamin B1) 250 mg PO DAILY@0800 [facility] Last Admin: 11/15/19 08:27 Dose: 250 mg Documented by: Zolpidem Tartrate (Ambien (Generic)) 5 mg PO QHS PRN PRN PRN Reason: SLEEP Medical Necessity - Tobacco Use Smoking Status: Never smoker Assessment/Plan All Active Problems Pulmonary embolism (Resolved) Patellar fracture (Acute) Patient what must wear knee immobilizer with knee fully extended during ambulation may be weightbearing as tolerated with immobilizer on. Patient should not bend the knee. May remove knee immobilizer while leg is straight to apply ice machine. Leave dressing on 7 days postop then may begin showering. Wanda to be removed 2 weeks postop oxycodone and Eliquis prescription provided on chart. No up 2 weeks office
[2019-11-15 14:34] VITALS: BP 157/77; PULSE 79; RESP 18; TEMP 36.9; O2SAT 94
--- NOTE | 2019-11-15 14:52 | CASEMGMT ---
Addendum entered by Nicky Dominguez 11/15/19 15:37: SW updated pt on acceptance to [facility] pending pre-cert. SW placed a call to Ashlee at [facility] and updated her that pt's family has decided on different SNF for pt so Ashlee can disregard referral. Plan: [facility] pending pre-cert Addendum entered by Nicky Dominguez 11/15/19 15:23: SW received call from Dee Dee at [employer] stating she has not received referral yet for pt but will be on the look out for referral. SW received call from Radha at [facility] stating she is able to accept pt. SW updated Radha that this worker is waiting to hear from [employer] in regards to SNF. SW placed a call to [employer] and left message for Dee Dee updating [employer] that pt now wishes to go to [facility] instead of [facility]. Original Note: Social Work Note SW in to speak with pt. Pt's daughter Daniela present in room. Pt gave this worker permission to speak to her in front of her guest. Pt states that she is now wanting to go to [facility] as [facility] is closer for pt's daughter. SW placed a call to Radha at [facility] and left message regarding referral. SW faxed referral. Plan: [facility] pending acceptance and pre-cert Nicky Dominguez PULLING UNIT OPERATOR, MANAGER PROGRAMMING
--- NOTE | 2019-11-15 16:32 | CASEMGMT ---
Social Work Note SW received message from Coretta at [facility] stating she does agree with SNF level for pt. YAMEL placed a call to Radha at [facility] and updated her on this. Radha to submit for pre-cert. Plan: [facility] pending pre-cert Nicky Dominguez CORE ANALYST, AGENT
[2019-11-15] MEDS: oxyCODONE 5 MG Tablet 10 MG PO ×2 (17:45→22:46)
[2019-11-15 20:00] VITALS: BP 159/77; PULSE 78; RESP 18; TEMP 37; O2SAT 94
[2019-11-16 02:00] VITALS: BP 158/72; PULSE 75; RESP 18; TEMP 36.9; O2SAT 95
[2019-11-16] MEDS: oxyCODONE 5 MG Tablet PO (05:51)
[2019-11-16] MEDS: Levothyroxine 75 MCG Tablet PO (05:51)
[2019-11-16 09:15] VITALS: BP 125/68; PULSE 84; RESP 16; TEMP 37.1; O2SAT 97
[2019-11-16 09:27] VITALS: PULSE 84
[2019-11-16] MEDS: APIXABAN 2.5 MG TABLET PO (09:27)
[2019-11-16] MEDS: Metoprolol(XL)Succ 25 MG Tablet PO (09:27)
[2019-11-16] MEDS: Thiamine Hydrochloride 100 MG Tablet 250 MG PO (09:27)
[2019-11-16] MEDS: Calcium Carb/Vitamin D 1 TABLET Tablet PO (09:27)
[2019-11-16] MEDS: Cyanocobalamin 500 MCG Tablet PO (09:27)
--- NOTE | 2019-11-16 09:32 | DCINST_ITS ---
- Discharge Diagnoses Current Active Problems: Current Active and Chronic Problems Patellar fracture (Acute) You will use the following diet at home:: No restrictions Your food should be the consistency of: Regular Your liquids should be the consistency of: Regular/Thin Discharge Activity: Return to Normal Activity - as tolerated Weight Bearing Status: Weight bearing as tolerated Keep extremity elevated above heart level: Right Leg Additional Activity Instructions:: wear immobilizer with right knee fully extended during ambulation. Do not bend right knee. Call your doctor if your incision/area has: Continuous Slow Oozing, Sudden Increased Bleeding, Increased Pain/ Swelling, Increased Redness Allergies/Adverse Reactions: Allergies No Known Allergies Allergy (Verified 11/07/19 10:31) Medications to take at Discharge Levothyroxine [Synthroid] 75 mcg PO DAILY 07/23/13 Zolpidem Tartrate [Ambien] 5 mg PO QHS PRN PRN 07/23/13 Calcium Carbonate/Vitamin D3 [Calcium 500-Vit D3 400 Tablet] 1 each PO DAILY 02/10/14 Cholecalciferol (Vitamin D3) [Vitamin D3] 25 mg PO DAILY 02/10/14 Cyanocobalamin [Vitamin B12] 500 mcg PO DAILY@0800 02/10/14 Denosumab [Prolia] 60 mg SQ .6MONTHS 05/29/19 Hydroxychloroquine Sulfate [Plaquenil] 300 mg PO DAILY 05/29/19 Metoprolol(XL)Succ [Toprol Xl (Beta Caprice)] 25 mg PO DAILY 05/29/19 Thiamine HCl [Vitamin B-1] 250 mg PO DAILY 05/29/19 Cholestyramine/Aspartame [Prevalite Packet] 1 packet PO DAILY 11/13/19 Acetaminophen [Tylenol Tablet] 650 mg PO Q6H PRN PRN #100 tab 11/15/19 Apixaban [Eliquis] 2.5 mg PO BID #28 tab 11/15/19 Oxycodone [Oxyir] 5 - 10 mg PO Q4H PRN PRN #60 tab 11/15/19 The following prescriptions were given: Apixaban [Eliquis] 2.5 mg PO BID #28 tab Prescription Printed Oxycodone [Oxyir] 5 - 10 mg PO Q4H PRN PRN #60 tab PRN Reason: Pain Score 4-5/10 Prescription Printed Acetaminophen [Tylenol Tablet] 650 mg PO Q6H PRN PRN #100 tab PRN Reason: Pain Score 1-10/Temp > 100.7 F Prescription Printed Primary Care Physician: Sagar Horton Chi, MD [Primary Care Provider] - Within 2 Weeks Test Results: Test results from this visit will be discussed in further detail at your follow- up appointment, if applicable. Please Follow Up With: Arnie White DO - Orthopaedics When: 2 weeks Proposed Discharge Date: 11/16/19
--- NOTE | 2019-11-16 09:35 | PCM.DC.SUM ---
Discharge Date and Diagnosis - Problem List Patient Problems: Active and Suspected Problems Patellar fracture (Acute) Date of Admission: 11/13/19 Date of Discharge: 11/16/19 - Primary Discharge Diagnosis Active and Suspected Problems Patellar fracture (Acute) - Secondary Discharge Diagnosis Chronic Problems TIA (transient ischemic attack) (Chronic) Cerebral aneurysm (Chronic) Hypertension (Chronic) GERD (gastroesophageal reflux disease) (Chronic) S/P AAA repair (Chronic) Hypothyroid (Chronic) History of left knee replacement (Chronic) Hospital Course and Treatment Imaging Results: Clinical Impression(s) from Imaging Studies Chest X-Ray 11/13/19 08:57 IMPRESSION: Normal x-ray examination of the chest. Electronically Signed: Augustin Chase DO at 10:04 EST Tel [phone], Service support , Knee X-Ray 11/13/19 08:58 IMPRESSION: Patella fracture. Electronically Signed: Augustin Chase DO at 10:06 EST Tel [phone], Service support , Lower Extremity CT 11/13/19 10:41 IMPRESSION: Knee replacement without evidence of fracture. Small joint effusion. Electronically Signed: Isidro Perry MD (Brooks) at 13:18 EST , Service support , Lower Extremity CT 11/13/19 12:24 IMPRESSION: 1. Patella fracture with associated soft tissue swelling. Electronically Signed: Isidro Perry MD (Brooks) at 13:17 EST , Service support , Knee X-Ray 11/14/19 08:00 IMPRESSION: Fluoroscopic guidance for patellar fracture fixation. Electronically Signed: Isidro Perry MD (Brooks) at 12:11 EST , Service support , Operations: - - Open reduction internal fixation right patella Summary of Care Provided: The patient is a 84 year old F who was getting her mail and then fell landing on her right knee. Patient had immediate pain. Brought to the hospital was found to have a completely displaced and fractured right patella. On the , patient underwent an open reduction internal fixation of the right patella by Dr. White. Patient tolerated the procedure well. Patient is advised to be weightbearing as tolerated but to wear an immobilizer with activity and to not bend and flex the right leg at the knee. Patient's course was otherwise uncomplicated. Plan is for the patient go to [facility] in stable condition. Patient had a colonoscopy performed on November [address] Diego. Patient had a voicemail that stated that she had colitis. And was notified that medications were to be sent to her pharmacy. It is unknown to me what type of colitis the patient has and what those medications are. Records have been requested from Dr. Diego's office on the and I called the office today but no answer. We have yet to receive any information about what type of colitis that patient has. Patient stated that she had colonoscopy because she was having about a week's long history of diarrhea which has seem to abated since she is been here. Patient is otherwise asymptomatic from it. [] Patient Problems: Active and Suspected Problems Patellar fracture (Acute) - Physical Exam Vitals/I&O's: Vital Signs Temp Pulse Resp BP Pulse Ox 37.1 C 84 16 125/68 H 97 11/16/19 09:15 11/16/19 09:27 11/16/19 09:15 11/16/19 09:15 11/16/19 09:15 Oxygen Delivery Method Room Air Weight: 53.9 kg Body Mass Index (BMI) 22.4 Intake and Output for Last 24 Hours 11/14/19 11/15/19 11/16/19 23:59 23:59 23:59 Intake Total 3510.83 / 3610.83 1840.0 / 1840.0 1000 / 1000 Output Total 350 / 600 1150 / 1150 Balance 3510.83 / 3260.83 1490.0 / 1240.0 -150 / -150 General: Alert, No apparent distress HEENT: Atraumatic, Normocephalic Oral: Moist Mucosa, No Gingival or Mucosal Lesions/ Ulcerations Lungs: Clear to auscultation, Normal air movement, No rhonchi, No wheeze Cardiovascular: Regular rate, Regular Rhythm, - - 2/6 HSM at apex Abdomen: Bowel Sounds Present, Soft, Non Tender, Non-Distended Extremities: No edema, No Calf Tenderness Psych/Mental Status: Normal Affect, Appropriate Laboratory Results 11/15/19 05:18: Vitamin D 25-Hydroxy 33.5 Current Medications Acetaminophen (Tylenol) 650 mg PO Q6H PRN PRN PRN Reason: Pain Score 1-10/Temp > 100.7 F Last Admin: 11/14/19 11:29 Dose: 650 mg Documented by: Apixaban (Eliquis) 2.5 mg PO BID [facility] Last Admin: 11/16/19 09:27 Dose: 2.5 mg Documented by: Calcium/Vitamin D (Os-Kee 500mg + D) 1 tablet PO DAILYCM [facility] Last Admin: 11/16/19 09:27 Dose: 1 tablet Documented by: Cyanocobalamin (Vitamin B12) 500 mcg PO DAILY@0800 [facility] Last Admin: 11/16/19 09:27 Dose: 500 mcg Documented by: Glucagon () 1 mg IM .X1 PRN PRN Reason: Hypoglycemia Dextrose (Dextrose 10%-Water) 250 mls @ 999 mls/hr IV .Q16M PRN; Protocol PRN Reason: HYPOGLYCEMIA Sodium Chloride () 250 mls @ 15 mls/hr IV .[id number] PRN PRN Reason: Saline Flush Sodium Chloride () 1,000 mls @ 75 mls/hr IV .[id number] [facility] Last Admin: 11/16/19 09:24 Dose: Not Given Documented by: Levothyroxine Sodium (Synthroid) 75 mcg PO DAILY@0600 [facility] Last Admin: 11/16/19 05:51 Dose: 75 mcg Documented by: Metoprolol Succinate (Toprol Xl (Beta Caprice)) 25 mg PO DAILY [facility] Last Admin: 11/16/19 09:27 Dose: 25 mg Documented by: Nutritional Formula (Lactose Free) (Ensure Enlive) 120 ml PO 4X/DAY [facility] Last Admin: 11/16/19 09:26 Dose: Not Given Documented by: Ondansetron HCl (Zofran) 4 mg IV Q8H PRN PRN PRN Reason: NAUSEA/VOMITING Last Admin: 11/15/19 05:54 Dose: 4 mg Documented by: Oxycodone HCl (Oxyir) 5 mg PO Q4H PRN PRN PRN Reason: Pain Score 4-5/10 Last Admin: 11/16/19 05:51 Dose: 5 mg Documented by: Oxycodone HCl (Oxyir) 10 mg PO Q4H PRN PRN PRN Reason: Pain Score 6-10/10 Last Admin: 11/15/19 22:46 Dose: 10 mg Documented by: Sodium Chloride () 10 - 40 ml IV UD PRN PRN Reason: SALINE FLUSH Last Admin: 11/15/19 07:31 Dose: 10 ml Documented by: Thiamine HCl (Vitamin B1) 250 mg PO DAILY@0800 [facility] Last Admin: 11/16/19 09:27 Dose: 250 mg Documented by: Zolpidem Tartrate (Ambien (Generic)) 5 mg PO QHS PRN PRN PRN Reason: SLEEP Discharge Diet: No Restrictions Discharge Activity: Return to Normal Activity - as tolerated Weight Bearing Status: Weight bearing as tolerated Keep extremity elevated above heart level: Right Leg Additional Activity Instructions:: wear immobilizer with right knee fully extended during ambulation. Do not bend right knee. Call your doctor if your incision/area has: Continuous Slow Oozing, Sudden Increased Bleeding, Increased Pain/ Swelling, Increased Redness Home Medications: Medications to take at Discharge Levothyroxine [Synthroid] 75 mcg PO DAILY 07/23/13 Zolpidem Tartrate [Ambien] 5 mg PO QHS PRN PRN 07/23/13 Calcium Carbonate/Vitamin D3 [Calcium 500-Vit D3 400 Tablet] 1 each PO DAILY 02/10/14 Cholecalciferol (Vitamin D3) [Vitamin D3] 25 mg PO DAILY 02/10/14 Cyanocobalamin [Vitamin B12] 500 mcg PO DAILY@0800 02/10/14 Denosumab [Prolia] 60 mg SQ .6MONTHS 05/29/19 Hydroxychloroquine Sulfate [Plaquenil] 300 mg PO DAILY 05/29/19 Metoprolol(XL)Succ [Toprol Xl (Beta Caprice)] 25 mg PO DAILY 05/29/19 Thiamine HCl [Vitamin B-1] 250 mg PO DAILY 05/29/19 Cholestyramine/Aspartame [Prevalite Packet] 1 packet PO DAILY 11/13/19 Acetaminophen [Tylenol Tablet] 650 mg PO Q6H PRN PRN #100 tab 11/15/19 Apixaban [Eliquis] 2.5 mg PO BID #28 tab 11/15/19 Oxycodone [Oxyir] 5 - 10 mg PO Q4H PRN PRN #60 tab 11/15/19 Following Prescrptions Were Given to Patient: Apixaban [Eliquis] 2.5 mg PO BID #28 tab Prescription Printed Oxycodone [Oxyir] 5 - 10 mg PO Q4H PRN PRN #60 tab PRN Reason: Pain Score 4-5/10 Prescription Printed Acetaminophen [Tylenol Tablet] 650 mg PO Q6H PRN PRN #100 tab PRN Reason: Pain Score 1-10/Temp > 100.7 F Prescription Printed Primary Care Physician: Sagar Horton Chi, MD [Primary Care Provider] - Within 2 Weeks Please Follow Up With: Arnie White DO - Orthopaedics When: 2 weeks Disposition: Retirement facility Minutes spent on discharge:: 35 Patient Condition:: Good Medical Necessity - Tobacco Use Smoking Status: Never smoker Meaningful Use Info Meaningful Use Diagnoses (Choose all that apply): None applicable Code Visit Inpatient E&M: 43263 Disch Hosp
--- NOTE | 2019-11-16 13:52 | CASEMGMT ---
Addendum entered by Nicky Dominguez 11/16/19 14:03: SW received call from Radha at [facility] stating pt's pre-cert is still pending. Original Note: Social Work Note SW placed a call to Radha at [facility] and left message asking for update on pt's pre-cert as pt is medically cleared for discharge. SW waiting for call back. Plan: [facility] pending pre-cert Nicky Dominguez APRN, [employer] AND [employer]
[2019-11-16 14:24] VITALS: BP 156/76; PULSE 77; RESP 16; TEMP 36.8; O2SAT 97
--- NOTE | 2019-11-16 15:29 | PN_ITS ---
Patient Problems: Active and Suspected Problems Patellar fracture (Acute) Subjective: Still with pain in knee. Vitals/I&O's: Vital Signs Temp Pulse Resp BP Pulse Ox 36.8 C 77 16 156/76 H 97 11/16/19 14:24 11/16/19 14:24 11/16/19 14:24 11/16/19 14:24 11/16/19 14:24 Oxygen Delivery Method Room Air Weight: 53.9 kg Body Mass Index (BMI) 22.4 Intake and Output for Last 24 Hours 11/14/19 11/15/19 11/16/19 23:59 23:59 23:59 Intake Total 3510.83 / 3610.83 1840.0 / 1840.0 1000 / 1000 Output Total 350 / 600 1150 / 1150 Balance 3510.83 / 3260.83 1490.0 / 1240.0 -150 / -150 General: Alert, No apparent distress HEENT: Atraumatic, Normocephalic Oral: Moist Mucosa, No Gingival or Mucosal Lesions/ Ulcerations Lungs: Clear to auscultation, Normal air movement, No rhonchi, No wheeze Cardiovascular: Regular rate, Regular Rhythm, Normal S1, Normal S2 Abdomen: Bowel Sounds Present, Soft, Non Tender, Non-Distended Extremities: - - right knee in immobilizer--did not remove. Psych/Mental Status: Normal Affect, Appropriate Current Medications Acetaminophen (Tylenol) 650 mg PO Q6H PRN PRN PRN Reason: Pain Score 1-10/Temp > 100.7 F Last Admin: 11/14/19 11:29 Dose: 650 mg Documented by: Apixaban (Eliquis) 2.5 mg PO BID [facility] Last Admin: 11/16/19 09:27 Dose: 2.5 mg Documented by: Calcium/Vitamin D (Os-Kee 500mg + D) 1 tablet PO DAILYCM [facility] Last Admin: 11/16/19 09:27 Dose: 1 tablet Documented by: Cyanocobalamin (Vitamin B12) 500 mcg PO DAILY@0800 [facility] Last Admin: 11/16/19 09:27 Dose: 500 mcg Documented by: Glucagon () 1 mg IM .X1 PRN PRN Reason: Hypoglycemia Dextrose (Dextrose 10%-Water) 250 mls @ 999 mls/hr IV .Q16M PRN; Protocol PRN Reason: HYPOGLYCEMIA Sodium Chloride () 250 mls @ 15 mls/hr IV .[id number] PRN PRN Reason: Saline Flush Sodium Chloride () 1,000 mls @ 75 mls/hr IV .[id number] [facility] Last Admin: 11/16/19 09:24 Dose: Not Given Documented by: Levothyroxine Sodium (Synthroid) 75 mcg PO DAILY@0600 [facility] Last Admin: 11/16/19 05:51 Dose: 75 mcg Documented by: Metoprolol Succinate (Toprol Xl (Beta Caprice)) 25 mg PO DAILY [facility] Last Admin: 11/16/19 09:27 Dose: 25 mg Documented by: Nutritional Formula (Lactose Free) (Ensure Enlive) 120 ml PO 4X/DAY [facility] Last Admin: 11/16/19 14:18 Dose: Not Given Documented by: Ondansetron HCl (Zofran) 4 mg IV Q8H PRN PRN PRN Reason: NAUSEA/VOMITING Last Admin: 11/15/19 05:54 Dose: 4 mg Documented by: Oxycodone HCl (Oxyir) 5 mg PO Q4H PRN PRN PRN Reason: Pain Score 4-5/10 Last Admin: 11/16/19 05:51 Dose: 5 mg Documented by: Oxycodone HCl (Oxyir) 10 mg PO Q4H PRN PRN PRN Reason: Pain Score 6-10/10 Last Admin: 11/15/19 22:46 Dose: 10 mg Documented by: Sodium Chloride () 10 - 40 ml IV UD PRN PRN Reason: SALINE FLUSH Last Admin: 11/15/19 07:31 Dose: 10 ml Documented by: Thiamine HCl (Vitamin B1) 250 mg PO DAILY@0800 [facility] Last Admin: 11/16/19 09:27 Dose: 250 mg Documented by: Zolpidem Tartrate (Ambien (Generic)) 5 mg PO QHS PRN PRN PRN Reason: SLEEP STROKE Vital Signs/Narrative: Vital Signs Temp Pulse Resp BP Pulse Ox 11/16/19 14:24 36.8 C 77 16 156/76 H 97 Medical Necessity - Tobacco Use Smoking Status: Never smoker Assessment/Plan All Active Problems Pulmonary embolism (Resolved) Patellar fracture (Acute) 1. Right patellar fracture * s/p ORIF on 11/14 * weight bearing and activity per ortho * follow up 25-OH d level * morphine being given over oxycodone though it is clearly in the orders: if oral agent available for same pain score, use IV if patient unable to take PO or oral treatment is ineffective. Notified charge master coordinator. Will DC morphine and continue with oxycodone that has already been ordered 2. VTE prophylaxis: apixaban 3. Disposition: seen by PT who recommends rehab. Will await insurance authorization. 4. Colitis * NOS * had colonoscopy on 11/[address] Diego * pt does not know type of colitis. Only aware that medications being sent to her pharmacy, she does not what medications. * Records requested from Dr. Diego's office. Called earlier--no answer. Code Visit Inpatient E&M: 82575 Subs Hosp L2
--- NOTE | 2019-11-16 16:14 | PCM.TXEXTCAR ---
- Diet 11/13/19 16:03 Diet: Regular Diet Is pt able to select menu?: Yes - Wound(s) RIGHT KNEE Wound Type: Surgical Incision - Therapies Weight Bearing: Weight bearing as tolerated Extremity Affected:: immobilizer on right leg. do not bend. Physical Therapy: Eval and Treat Occupational Therapy: Eval and Treat - Problem/Diagnosis (1) Patellar fracture Status: Acute Current Visit: Yes (2) TIA (transient ischemic attack) Status: Chronic Current Visit: No (3) Cerebral aneurysm Status: Chronic Current Visit: No (4) Hypertension Status: Chronic Current Visit: No (5) GERD (gastroesophageal reflux disease) Status: Chronic Current Visit: No (6) S/P AAA repair Status: Chronic Current Visit: No (7) Hypothyroid Status: Chronic Current Visit: No (8) History of left knee replacement Status: Chronic Current Visit: No - Allergies/Procedures Done in Hospital Allergies/Adverse Reactions: Allergies No Known Allergies Allergy (Verified 11/07/19 10:31) Procedures: - - ORIF right patella - Type of Care/Length of Stay Estimated LOS: Convalescent Care Less Than 30 days Type of Care Needed: Skilled Rehab Potential: Good Prognosis: Good - Additional Orders/Day of Discharge Day of Discharge: 11/16/19 - Dietary and Speech Recommendations Dietitian Recommendations/Changes: Recommend advance diet as tolerated to transitional. Ensure Enlive 120mL 4x/day w/ medpass when PO diet advanced. - Follow Up Care Primary Care Physician: Sagar Horton Chi, MD [Primary Care Provider] - Within 2 Weeks Please Follow Up With: Arnie White DO - Orthopaedics When: 2 weeks
--- NOTE | 2019-11-16 17:24 | CASEMGMT ---
Social Work Note SW received call from Radha at [facility] stating pre-cert has been obtained and pt can discharge to [facility] today. Physician updated. YAMEL faxed completed discharge paperwork to [facility] including transfer to extended care facility, signed medication list and any scripts. Original in SNF folder and copy on pt's chart. YAMEL completed convalescent [facility] in [facility]. Original in SNF folder and copy on pt's chart. SW in to speak with pt. YAMEL updated pt on approval to go to [facility] and discharge today. Pt states understanding, states her daughter will be at [facility] soon to transport pt. YAMEL updated RN. YAMEL placed a call to Radha at [facility] and left message that pt's daughter will be transporting pt soon to [facility]. Plan: [facility] skilled today with pt's family transporting pt via private vehicle Nicky Dominguez MSW, DEVELOPMENTAL SERVICES WORKER
== END 2019-11-16 17:53 | disposition home or self-care (01) | DRG 517 ==
LOC: ED 10:36 → MS3 10:41
PROVIDERS: Anesthesiology; Orthopaedic Surgery; Emergency Provider Emergency Medicine; PCP Family Medicine Geriatric Medicine
PROC: 0QSD04Z Reposition Right Patella with Internal Fixation Device, Open Approach (ICD-10-PCS; CPT 27524; principal; 2019-11-14 08:00)
DX: S82.041A Displaced comminuted fracture of right patella, initial encounter for closed fracture (principal); W00.0XXA Fall on same level due to ice and snow, initial encounter; Y93.01 Activity, walking, marching and hiking; Y92.008 Other place in unspecified non-institutional (private) residence as the place of occurrence of the external cause; I10 Essential (primary) hypertension; E03.9 Hypothyroidism, unspecified; K21.9 Gastro-esophageal reflux disease without esophagitis; Z96.652 Presence of left artificial knee joint; Z86.711 Personal history of pulmonary embolism; Z79.890 Hormone replacement therapy; Z86.73 Personal history of transient ischemic attack (TIA), and cerebral infarction without residual deficits
CPT/HCPCS: 36415; 71046; 73560; 73700; 76000; 80048; 82306; 84443; 85025; 85027; 93005; 97110; 97116; 97163; 97166; 97530; 97535; 97802; 99251; 99285; C1713; J7030; J7050; J7120; A4216; G0463; J2405

== ENCOUNTER → 2019-12-01 09:39 | Outpatient (CLI) | payer MEDICARE, SELFPAY ==
[2019-11-14 06:00] VITALS: BMI 22.4
--- NOTE | 2019-12-01 09:40 | RAD_ITS ---
STUDY: X-RAY - RIGHT KNEE REASON FOR EXAM: Female, 84 years old. FOLLOW UP PATELLA FX TECHNIQUE: 2 view(s) of the knee. COMPARISON: Prior knee radiographs of November 14, 2019 FINDINGS: Normal visualized distal femur. Normal visualized proximal tibia and fibula. Normal proximal tibiofibular articulation. Transverse fracture of the patella remains anatomically aligned with 2 superior to inferior patellar screws with no change in hardware placement from post operative exam. Reduced generalized surrounding soft tissue swelling. RAD/Knee 1 or 2 Views IMPRESSION: Healing anatomically aligned patellar fracture with no change in bone or hardware alignment from prior exam of November 14, 2019. Electronically Signed: Mckenzie Hernandez MD at 23:08 EST , Service support ,
== END ==
PROVIDERS: PCP Family Medicine Geriatric Medicine; Referring Provider Orthopaedic Surgery; Visit Provider Orthopaedic Surgery
DX: S82.001A Unspecified fracture of right patella, initial encounter for closed fracture (principal)
CPT/HCPCS: 73560

== ENCOUNTER → 2019-12-15 10:08 | Outpatient (CLI) | payer MEDICARE, SELFPAY ==
[2019-12-01 09:54] VITALS: BMI 22.4
--- NOTE | 2019-12-15 10:09 | RAD_ITS ---
STUDY: X-RAY - RIGHT KNEE REASON FOR EXAM: Female, 84 years old. PATELLA REPAIR TECHNIQUE: 2 view(s) of the knee. COMPARISON: Previous study of 12/01/2019 FINDINGS: Normal visualized distal femur. Normal visualized proximal tibia and fibula. Normal proximal tibiofibular articulation. Normal medial femorotibial compartment. There is chondrocalcinosis of the lateral meniscal cartilage. There are 2 fixation screws of the patella stabilizing a nondisplaced transverse patellar fracture. Fracture fragments appear in good alignment. There is a small suprapatellar effusion. Arterial calcifications are noted in the visualized distal thigh. RAD/Knee 1 or 2 Views IMPRESSION: Fixation screws of the patella stabilizing a nondisplaced transverse patellar fracture. Fracture alignment appears good and unchanged from the previous study. There is a small suprapatellar effusion. There is chondrocalcinosis of the lateral meniscal cartilage. Electronically Signed: Pedro Jordan MD at 17:14 EDT , Service support ,
== END ==
PROVIDERS: PCP Family Medicine Geriatric Medicine; Referring Provider Orthopaedic Surgery; Visit Provider Orthopaedic Surgery
DX: S82.034A Nondisplaced transverse fracture of right patella, initial encounter for closed fracture (principal)
CPT/HCPCS: 73560

== ENCOUNTER → 2019-12-27 14:01 | Outpatient (CLI) | payer MEDICARE, SELFPAY ==
[2019-12-27 13:51] VITALS: BMI 22.4
--- NOTE | 2019-12-27 14:01 | RAD_ITS ---
STUDY: X-RAY - RIGHT WRIST REASON FOR EXAM: Female, 84 years old. FRACTURE TECHNIQUE: 3 view(s) of the wrist were obtained. COMPARISON: None. FINDINGS: Normal visualized distal radius and ulna. Normal radiocarpal articulation. Normal distal radioulnar articulation. There is demineralization of the carpal bones. Normal carpal articulations. There is degenerative arthrosis of the carpometacarpal articulation of the thumb. Normal second through fifth carpometacarpal articulations. Normal visualized metacarpal bones. Vascular calcifications. There is non-specific soft tissue swelling. RAD/Wrist min 3 Views IMPRESSION: Degenerative changes at the first carpometacarpal joint. No fracture is seen. Soft tissue swelling and vascular calcification. Electronically Signed: Jensen Good, at 15:39 EDT , Service support ,
--- NOTE | 2019-12-27 14:01 | RAD_ITS ---
STUDY: X-RAY - RIGHT KNEE REASON FOR EXAM: Female, 84 years old. POST OP TECHNIQUE: 2 view(s) of the knee. COMPARISON: Comparison is made with prior examination dated December 15, 2019. FINDINGS: 2 metallic screws are seen stabilizing a patellar fracture. There has been no change. Persistent soft tissue swelling. RAD/Knee 1 or 2 Views IMPRESSION: Status post screw fixation of a patellar fracture. The alignment is maintained. Residual soft tissue swelling. Electronically Signed: Jensen Good, at 14:47 EDT , Service support ,
== END ==
PROVIDERS: PCP Family Medicine Geriatric Medicine; Referring Provider Orthopaedic Surgery; Visit Provider Orthopaedic Surgery
DX: S69.91XA Unspecified injury of right wrist, hand and finger(s), initial encounter (principal); S82.009A Unspecified fracture of unspecified patella, initial encounter for closed fracture
CPT/HCPCS: 73110; 73560

== ENCOUNTER 2020-01-11 15:30 | Outpatient (RCR) | payer MEDICARE, SELFPAY ==
[2019-12-01 09:54] VITALS: BMI 22.4
--- NOTE | 2019-12-09 10:48 | HP.PTEVAL_ITS ---
Patient's Visit Information BOGDAN SYKES is a 84 year old F referred to Physical Therapy by Arnie White DO with a diagnosis of Right Patellar Fracture ORIF 11-14-2019. Date of Evaluation: 12/09/19 Physical Therapist: Yudith Villafana DPT - Visit Plan Frequency: 2x /Week Duration: 4 Weeks Plan: Patellar Fracture with ORIF 11-14-2019- Focus on LE ROM and strength- Slow ROM- Currently brace is open to 45 degrees. Patient hesitant for flexion. 12/08 HEP: Ankle Pump, quad set, SLR, hamstring stretch - Subjective Findings: Patient reports that she fell on the ice Nov 13, [address] Kunz put her back together on Nov 14, 2019 at [facility]. She fractured the knee cap. Went to [facility] and was there for 2 weeks for rehab. Headed home from there about a week and half ago- started home health and she was good enough to come to [facility]. Lives alone-fully I prior to fall- her daughter comes over to help as needed but mostly she can manage. Does have stairs to the basement does not go down- 2 steps to enter- no problems negotiating. She does drive but is not currently driving- daughter bring her to PT. Patient is back in her bed and it disturbes her- wakes her up with tingles when its in the same position for to long- sleeps on her back/belly/side- now is sleeping on her back only. Is wearing a brace all the time. It is locked in extension. Worst pain in the last 48 hours 02/12 Agg: one position to long- if she moves out of the position the pain goes away in a few minutes. Best: 10/15- Describes the pain as burning- located along the knee cap- no radiating pain. No N/T. Stands in her shower-no grab bars but no problems. 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 Goals: get back to where she once was- back to exercise and yardwork. Had x-rays last week everything looked good. PMHx/Meds: diagnosed with colitis- prescribed meds to help with diarrhea- no other changes since seeing Dr. Kunz and surgery - Objective Posture: good throughout treatment session. Gait: antalgic- leg extension brace open only to 45 degrees- straight cane for ambulation back to room but did not use in room- decreased heel/toe pattern and stance time on the right- vaulting over the brace. HR/TR: able with UE A- no pain. SLS: 10 sec then placed left foot on floor for righting. Sensation: hypersensitive around the incision. Incision: healing- scab over the incision- redness but no s/s of infection (educated patient in s/s). Observation: pt keeps the incision covered in gauze and a wrap. Palpation: tender along medial joint line and medial and superior patella. ROM: 0-20 degrees of the right knee. Strength: ankle: 4+/5, Quad set is visible. SLR: minimal lag- Hip: 4/5 throughout Core: fair - Goals Goal 1:: Patient will be I with HEP and progression Goal Time Frame: 4-6 Weeks Goal 2:: Patient will ambulate >300 feet with a normalized gait pattern and no AD Goal Time Frame: 4-6 Weeks Goal 3:: Patient will asc/desc 8 stairs recip with 1 HR Goal Time Frame: 4-6 Weeks Goal 4:: Patient will demo 0-115 degrees of ROM in the right knee as allowed per MD Goal Time Frame: 4-6 Weeks Goal 5:: Patient will return to all normal ADL's and recreational activities. Goal Time Frame: 4-6 Weeks - Rehabilitation Potential Physical Therapy Diagnosis: Patient presents with hypomobility- she has decreased ROM, strength, flex and muscular endurance s/p ORIF of the right patella leading to abnormal gait and decreased ability to perform ADL's. Rehabilitation Potential: Good - Anticipated Interventions Patient/Client Instruction: Educate patient on: Benefits of Fitness Program Therapeutic Exercise to Include: Strength training, Endurance training, Balance training, Coordination, Agility training, Body mechanics, Postural training, Flexibilty training, Gait and locomotor training, Neuromotor development, Passive ROM, Active ROM, Dynamic Lumbar Stabilization, Scapular Strength/Stabilization For the Purpose of:: To improve muscle performance and motor function TENS: Yes Cryotherapy (ice pack, ice massage): Yes Thermo therapy (hot pack): Yes Ultrasound (thermal/non thermal): No Thank you for the opportunity to evaluate your patient. For Medicare and Medicare HMO plans, please review the plan of care and approve it. It will need to be FAXED BACK to us at [phone] for Medicare purposes. For Medicare only, by signing this I certify the plan of care. Please let me know if there are questions or concerns regarding this plan of care. Physician Signature: Date:
--- NOTE | 2020-02-15 11:20 | HP.PT.NRP ---
BOGDAN SYKES was seen in my office for initial evaluation on 12/09/19. The following Plan of Care was established for this patient: Initial Frequency: 2x /Week Initial Duration: 4 Weeks Patient/Client Instruction: Educate patient on: Benefits of Fitness Program Therapeutic Exercise to Include: Strength training, Endurance training, Balance training, Coordination, Agility training, Body mechanics, Postural training, Flexibilty training, Gait and locomotor training, Neuromotor development, Passive ROM, Active ROM, Dynamic Lumbar Stabilization, Scapular Strength/Stabilization For the Purpose of:: To improve muscle performance and motor function TENS: Yes Cryotherapy (ice pack, ice massage): Yes Thermo therapy (hot pack): Yes Ultrasound (thermal/non thermal): No This patient was last seen in our office . Pertinent comments regarding their Physical therapy will appear below: Patient has not attended physical therapy in over 4 weeks- appropriate for d/c and return to MD as appropriate. At this point I will be discontinuing this patient from physical therapy. I would be happy to see this patient again in the future if found appropriate by the physician. Thank you! Yudith Villafana DPT
== END 2020-01-11 19:00 | disposition home or self-care (01) ==
LOC: PT 15:30
PROVIDERS: PCP Family Medicine Geriatric Medicine; Referring Provider Orthopaedic Surgery; Visit Provider Orthopaedic Surgery
DX: Z98.890 Other specified postprocedural states (principal)
CPT/HCPCS: 97110; 97161

== ENCOUNTER → 2020-01-31 15:24 | Outpatient (CLI) | payer MEDICARE, SELFPAY ==
[2019-12-27 13:51] VITALS: BMI 22.4
[2020-01-31 16:12] LABS: Absolute Lymphocyte Count 1.82 X10^3/uL (0.83-4.51); Basophil# 0.06 X10^3/uL; Basophil% 0.8 % (0-1); Eosinophil# 0.12 X10^3/uL; Eosinophils% 1.6 % (0-5); Hematocrit 44.6 % (37-47); Lymphocyte # 1.82 X10^3/ul (4.0); Lymphocyte % 23.7 % (19-41); Mean Corp Hgb Conc 31.4 g/dL (32-36); Mean Corpuscular Hgb 31.3 pg (27.0-32.0); Mean Corpuscular Volume 99.6 fL (81-99); Mean Platelet Vol. 11.2 fl (6.2-12.0); Monocyte# 0.69 X10^3/uL; NRBC Flagged by Analyzer 0 % (0-5); Neutrophil # 4.96 X10^3/uL (2.7-7.7); Neutrophil % 64.6 % (47-70); Platelet Count 213 K/mm3 (150-450); RBC Distribution Width CV 14.6 % (11.6-14.6); RBC Distribution Width SD 53.8 fl (35.1-43.9); Red Blood Count 4.48 M/mm3 (4.2-5.4); White Blood Count 7.7 K/mm3 (4.4-11.0)
[2020-01-31 16:42] LABS: Vitamin D,25 Hydroxy 54.8 ng/mL
[2020-01-31 16:45] LABS: ALB/GLOB Ratio 1.2 RATIO (0.9-2.4); AST(SGOT) 21 U/L (15-37); Alanine Aminotransfer ALT/SGPT 29 U/L (13-56); Albumin, Serum 3.8 g/dL (3.2-5.0); Alkaline Phosphatase 78 U/L (45-117); Anion Gap 1 (5-15); BUN 18 mg/dL (7-18); BUN/Creat Ratio 20.4 RATIO (10-20); Calcium,Total 8.8 mg/dL (8.5-10.1); Chloride 107 mmol/L (98-107); Creatinine, Serum 0.88 mg/dL (0.55-1.02); EST Glomerular Filtration Rate 65 mL/min (>60); Est Glom Filt Rate - Afr Amer 79 mL/min (>60); Globulin 3.2 g/dL (2.2-4.2); Glucose 97 mg/dL (74-106); Potassium 4.7 mmol/L (3.5-5.1); Sodium Level 139 mmol/L (136-145); Thyroid Stim Hormone (TSH) 1.33 uIU/mL (0.358-3.74)
== END ==
LOC: LAB.FUTURE 15:26 → LAB 15:28
PROVIDERS: PCP Family Medicine Geriatric Medicine; Referring Provider Family Medicine Geriatric Medicine; Visit Provider Family Medicine Geriatric Medicine
DX: E55.9 Vitamin D deficiency, unspecified (principal); I10 Essential (primary) hypertension
CPT/HCPCS: 36415; 80053; 82306; 84443; 85025

== ENCOUNTER → 2020-03-02 09:57 | Outpatient (CLI) | payer MEDICARE, SELFPAY ==
[2019-12-27 13:51] VITALS: BMI 22.4
[2020-03-02 12:49] LABS: Absolute Lymphocyte Count 1.89 X10^3/uL (0.83-4.51); Absolute Neutrophil Count 3.1 X10^3/uL (2.0-7.7); Basophil# 0.04 X10^3/uL; Basophil% 0.7 % (0-1); Eosinophil# 0.18 X10^3/uL; Eosinophils% 3.1 % (0-5); Hematocrit 42.5 % (37-47); Hemoglobin 13.8 g/dL (12.0-15.0); Lymphocyte # 1.89 X10^3/ul (4.0); Lymphocyte % 32.4 % (19-41); Mean Corp Hgb Conc 32.5 g/dL (32-36); Mean Corpuscular Hgb 32.5 pg (27.0-32.0); Mean Platelet Vol. 11.9 fl (6.2-12.0); Monocyte# 0.64 X10^3/uL; NRBC Flagged by Analyzer 0 % (0-5); Neutrophil # 3.07 X10^3/uL (2.7-7.7); Neutrophil % 52.6 % (47-70); Platelet Count 184 K/mm3 (150-450); RBC Distribution Width CV 14.4 % (11.6-14.6); RBC Distribution Width SD 52.8 fl (35.1-43.9); Red Blood Count 4.25 M/mm3 (4.2-5.4); White Blood Count 5.8 K/mm3 (4.4-11.0)
[2020-03-02 12:57] LABS: ALB/GLOB Ratio 1.1 RATIO (0.9-2.4); AST(SGOT) 21 U/L (15-37); Alanine Aminotransfer ALT/SGPT 29 U/L (13-56); Albumin, Serum 3.5 g/dL (3.2-5.0); Alkaline Phosphatase 72 U/L (45-117); Anion Gap 6 (5-15); BUN 19 mg/dL (7-18); BUN/Creat Ratio 19.2 RATIO (10-20); Calcium,Total 9.1 mg/dL (8.5-10.1); Chloride 108 mmol/L (98-107); Creatinine, Serum 0.99 mg/dL (0.55-1.02); EST Glomerular Filtration Rate 57 mL/min (>60); Est Glom Filt Rate - Afr Amer 69 mL/min (>60); Globulin 3.1 g/dL (2.2-4.2); Glucose 74 mg/dL (74-106); Potassium 4.4 mmol/L (3.5-5.1); Protein, Total 6.6 g/dL (6.4-8.2); Sodium Level 143 mmol/L (136-145)
== END ==
PROVIDERS: PCP Family Medicine Geriatric Medicine; Referring Provider Internal Medicine Rheumatology; Visit Provider Internal Medicine Rheumatology
DX: M06.4 Inflammatory polyarthropathy (principal); M18.0 Bilateral primary osteoarthritis of first carpometacarpal joints; M81.0 Age-related osteoporosis without current pathological fracture; Q66.70 Congenital pes cavus, unspecified foot; I10 Essential (primary) hypertension; E03.9 Hypothyroidism, unspecified; E78.5 Hyperlipidemia, unspecified; I26.99 Other pulmonary embolism without acute cor pulmonale; I82.519 Chronic embolism and thrombosis of unspecified femoral vein
CPT/HCPCS: 36415; 80053; 85025

== ENCOUNTER → 2020-05-03 12:21 | Outpatient (CLI) | payer MEDICARE, SELFPAY ==
[2019-12-27 13:51] VITALS: BMI 22.4
[2020-05-03 13:41] LABS: Absolute Neutrophil Count 3.9 X10^3/uL (2.0-7.7); Basophil# 0.05 X10^3/uL; Basophil% 0.8 % (0-1); Eosinophils% 1.5 % (0-5); Hematocrit 43.4 % (37-47); Hemoglobin 13.8 g/dL (12.0-15.0); Lymphocyte % 28.5 % (19-41); Mean Corp Hgb Conc 31.8 g/dL (32-36); Mean Corpuscular Hgb 30.9 pg (27.0-32.0); Mean Corpuscular Volume 97.1 fL (81-99); Mean Platelet Vol. 12.3 fl (6.2-12.0); Monocyte# 0.67 X10^3/uL; Monocyte% 10.1 % (0-10); NRBC Flagged by Analyzer 0 % (0-5); Neutrophil # 3.93 X10^3/uL (2.7-7.7); Neutrophil % 58.9 % (47-70); Platelet Count 202 K/mm3 (150-450); RBC Distribution Width CV 13.1 % (11.6-14.6); RBC Distribution Width SD 46.4 fl (35.1-43.9); Red Blood Count 4.47 M/mm3 (4.2-5.4); White Blood Count 6.7 K/mm3 (4.4-11.0)
[2020-05-03 14:04] LABS: ALB/GLOB Ratio 1.1 RATIO (0.9-2.4); AST(SGOT) 22 U/L (15-37); Alanine Aminotransfer ALT/SGPT 19 U/L (13-56); Albumin, Serum 3.6 g/dL (3.2-5.0); Alkaline Phosphatase 50 U/L (45-117); Anion Gap 5 (5-15); BUN 16 mg/dL (7-18); BUN/Creat Ratio 16.3 RATIO (10-20); Calcium,Total 8.8 mg/dL (8.5-10.1); Chloride 110 mmol/L (98-107); Creatinine, Serum 0.98 mg/dL (0.55-1.02); EST Glomerular Filtration Rate 57 mL/min (>60); Est Glom Filt Rate - Afr Amer 69 mL/min (>60); Globulin 3.2 g/dL (2.2-4.2); Glucose 72 mg/dL (74-106); Protein, Total 6.8 g/dL (6.4-8.2); Sodium Level 142 mmol/L (136-145)
== END ==
PROVIDERS: PCP Family Medicine Geriatric Medicine; Visit Provider Family Medicine Geriatric Medicine
DX: E86.0 Dehydration (principal)
CPT/HCPCS: 36415; 80053; 85025

== ENCOUNTER → 2020-06-01 11:00 | Outpatient (CLI) | payer MEDICARE, SELFPAY ==
[2019-12-27 13:51] VITALS: BMI 22.4
[2020-06-01 12:27] LABS: Absolute Lymphocyte Count 2.31 X10^3/uL (0.83-4.51); Absolute Neutrophil Count 3.4 X10^3/uL (2.0-7.7); Basophil# 0.06 X10^3/uL; Basophil% 0.9 % (0-1); Eosinophil# 0.18 X10^3/uL; Eosinophils% 2.7 % (0-5); Hemoglobin 13.5 g/dL (12.0-15.0); Lymphocyte # 2.31 X10^3/ul (4.0); Lymphocyte % 34.2 % (19-41); Mean Corp Hgb Conc 32.1 g/dL (32-36); Mean Corpuscular Hgb 31.8 pg (27.0-32.0); Mean Corpuscular Volume 98.8 fL (81-99); Mean Platelet Vol. 11.7 fl (6.2-12.0); Monocyte# 0.74 X10^3/uL; NRBC Flagged by Analyzer 0 % (0-5); Neutrophil # 3.44 X10^3/uL (2.7-7.7); Neutrophil % 50.9 % (47-70); Platelet Count 195 K/mm3 (150-450); RBC Distribution Width SD 51.1 fl (35.1-43.9); Red Blood Count 4.25 M/mm3 (4.2-5.4); White Blood Count 6.8 K/mm3 (4.4-11.0)
[2020-06-01 12:59] LABS: ALB/GLOB Ratio 1.4 RATIO (0.9-2.4); AST(SGOT) 17 U/L (15-37); Alanine Aminotransfer ALT/SGPT 28 U/L (13-56); Albumin, Serum 3.7 g/dL (3.2-5.0); Alkaline Phosphatase 43 U/L (45-117); Anion Gap 4 (5-15); BUN 25 mg/dL (7-18); BUN/Creat Ratio 21.9 RATIO (10-20); Calcium,Total 8.6 mg/dL (8.5-10.1); Chloride 105 mmol/L (98-107); Creatinine, Serum 1.14 mg/dL (0.55-1.02); EST Glomerular Filtration Rate 48 mL/min (>60); Est Glom Filt Rate - Afr Amer 58 mL/min (>60); Globulin 2.7 g/dL (2.2-4.2); Glucose 87 mg/dL (74-106); Protein, Total 6.4 g/dL (6.4-8.2); Sodium Level 140 mmol/L (136-145)
== END ==
PROVIDERS: PCP Family Medicine Geriatric Medicine; Referring Provider Internal Medicine Rheumatology; Visit Provider Internal Medicine Rheumatology
DX: M06.4 Inflammatory polyarthropathy (principal); M15.0 Primary generalized (osteo)arthritis; M81.0 Age-related osteoporosis without current pathological fracture; Q66.70 Congenital pes cavus, unspecified foot; I10 Essential (primary) hypertension; E03.9 Hypothyroidism, unspecified; E78.5 Hyperlipidemia, unspecified; I26.99 Other pulmonary embolism without acute cor pulmonale; I82.519 Chronic embolism and thrombosis of unspecified femoral vein
CPT/HCPCS: 36415; 80053; 85025

== ENCOUNTER 2020-06-11 13:31 | Emergency (ER) | payer MEDICARE, SELFPAY ==
[2019-12-27 13:51] VITALS: BMI 22.4
[2020-06-11 13:32] VITALS: BP 132/96; PULSE 76; RESP 16; TEMP 36.4; O2SAT 98; BMI 23.7
--- NOTE | 2020-06-11 13:50 | CT_ITS ---
STUDY: CT BRAIN WITHOUT CONTRAST REASON FOR EXAM: Female, 84 years old. FALL TODAY RADIATION DOSAGE (If Supplied By Facility): CTDIvol = ( 44.99 ) mGy, DLP = ( 779.24 ) mGycm TECHNIQUE: Transaxial CT imaging of the brain was performed without administration of intravenous contrast material. Individualized dose optimization techniques were used for this CT. COMPARISON: 12/02/2011 FINDINGS: There is soft tissue swelling of the frontal scalp but no underlying fracture. Normal calvarium. Normal size ventricles and extra-axial spaces for the patient''s age. Normal white matter tracts of the cerebral hemispheres. 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 Normal brainstem. Normal cerebellum. There is no intracranial hemorrhage. There are no findings of an acute ischemic infarction. There is opacification with mucoperiosteal thickening of the right maxillary sinus. Nondisplaced nasal fractures with overlying soft tissue swelling. There is also fracture of the anterior nasal septum. CT/Brain/Head without Contrast IMPRESSION: 1. No acute intracranial hemorrhage or mass effect. 2. Nondisplaced nasal fractures. Anterior nasal septal fracture. Electronically Signed: Isidro Perry MD ([place]) at 14:47 EDT , Service support ,
--- NOTE | 2020-06-11 13:50 | CT_ITS ---
STUDY: CT CERVICAL SPINE WITHOUT CONTRAST REASON FOR EXAM: Female, 84 years old. FALL RADIATION DOSAGE (If Supplied By Facility): CTDIvol = ( 11.84 ) mGy, DLP = ( 203.25 ) mGycm TECHNIQUE: High resolution transaxial imaging was performed without contrast material. Sagittal and coronal images were reconstructed. Individualized dose optimization techniques were used for this CT. COMPARISON: None FINDINGS: Normal craniovertebral junction. There are degenerative changes of the anterior atlantoaxial articulation. Normal odontoid process. Normal cervical lordosis. Normal vertebral bodies and posterior osseous elements. C2-3: Normal endplates. Normal disc height and morphology. Normal central canal and intervertebral neuroforamina. There is bilateral facet arthropathy. C3-4: Disc space narrowing with anterior spondylosis and bilateral uncovertebral hypertrophy. Right more than left facet arthropathy causing foraminal stenosis. No critical canal stenosis. C4-5: Disc space narrowing with anterior spondylosis and bilateral uncovertebral hypertrophy. Facet arthropathy contributes to foraminal stenosis. C5-6: Disc space narrowing with anterior spondylosis and posterior disc osteophyte complex contiguous with uncovertebral hypertrophy. There is canal and bilateral foraminal stenosis. C6-7: Disc space narrowing with anterior spondylosis and posterior disc osteophyte complex. No critical canal stenosis. C7-T1: Normal endplates. Normal disc height and morphology. Normal central canal and intervertebral neuroforamina. Normal visualized soft tissue structures. CT/Spine Cervical without Contras IMPRESSION: 1. No cervical spine fracture or traumatic subluxation. 2. Multilevel degenerative disc disease with canal and foraminal stenosis most conspicuous at C5-C6. Electronically Signed: Isidro Perry MD ([place]) at 14:53 EDT , Service support ,
--- NOTE | 2020-06-11 13:52 | CT_ITS ---
STUDY: CT FACIAL BONES WITHOUT CONTRAST REASON FOR EXAM: Female, 84 years old. FALL RADIATION DOSAGE (If Supplied By Facility): CTDIvol = ( 29.38 ) mGy, DLP = ( 503.38 ) mGycm TECHNIQUE: The patient was scanned in a multi detector CT scanner. Sagittal and coronal images were reconstructed. Individualized dose optimization techniques were used for this CT. COMPARISON: None. FINDINGS: Normal soft tissue structures. Normal orbital lerma and orbital contents. There are nondisplaced fractures of the nasal bones with overlying soft tissue swelling and small locules of air. There is also leftward angulation and buckling of the anterior nasal septum on image 37 of series 8. Normal facial bones. There is no demonstrated fracture. There is mucoperiosteal thickening and opacification of the right maxillary sinus (chronic). Less severe mucosal thickening of the inferior left maxillary sinus and bilateral ethmoid air cells. CT/Sinus/Facial Bone IMPRESSION: 1. Nondisplaced nasal fractures. Anterior nasal septal fracture. 2. Chronic sinus disease with right maxillary sinus affected to the greatest degree. Electronically Signed: Isidro Perry MD ([place]) at 14:56 EDT , Service support ,
--- NOTE | 2020-06-11 13:53 | RAD_ITS ---
STUDY: X-RAY - RIGHT KNEE REASON FOR EXAM: Female, 84 years old. FALL TODAY. SWELLING AND BRUISING ANTERIOR KNEE TECHNIQUE: 4 view(s) of the knee. COMPARISON: None. FINDINGS: Normal visualized distal femur. Normal visualized proximal tibia and fibula. Normal proximal tibiofibular articulation. Normal medial femorotibial compartment. Normal lateral femorotibial compartment. Normal patellofemoral articulation. There is no demonstrated joint effusion. There are fixation screws patella. There are atherosclerotic calcifications. There is mild soft tissue swelling overlying the patella. RAD/Knee 4 or More Views IMPRESSION: 1. No acute fracture. 2. Surgical fixation of patella. Overlying soft tissue swelling. Electronically Signed: Isidro Perry MD ([place]) at 14:40 EDT , Service support ,
--- NOTE | 2020-06-11 13:53 | RAD_ITS ---
STUDY: X-RAY - LEFT WRIST REASON FOR EXAM: Female, 84 years old. FALL TODAY. PAIN AND SWELLING LEFT WRIST TECHNIQUE: 3 view(s) of the wrist were obtained. COMPARISON: None. FINDINGS: There is diffuse osteopenia. There is a transverse fracture of the distal radius with mild volar apical angulation. Normal radiocarpal articulation. Normal distal radioulnar articulation. Normal carpal bones. There is degenerative arthrosis of the carpal articulations. There is degenerative arthrosis of the carpometacarpal articulation of the thumb. Normal second through fifth carpometacarpal articulations. Normal visualized metacarpal bones. The soft tissue structures are unremarkable. There are vascular calcifications. RAD/Wrist min 3 Views IMPRESSION: Distal radial fracture. Electronically Signed: Isidro Perry MD ([place]) at 14:42 EDT , Service support ,
--- NOTE | 2020-06-11 13:59 | ED.DCSUM_ITS ---
History of Present Illness <Anatoly Garcia - Last Filed: 06/11/20 15:32> Informant: Patient, Family Occurred: Today Mechanism/Context: Same level fall, Trip Usually ambulates: Without assistance Location: head, face, left wrist and right knee Quality of Pain: Sharp Current Severity: Severe Maximum Severity: Severe Worsened by: movement Relieved by: nothing Associated Symptoms: Negative for: Parasthesias, Weakness, Loss of function, Inability to ambulate, Loss of consciousness, Amnesia Narrative: 84-year-old female presents to emergency department after a fall. She was carrying in groceries and tripped and fell face first hit her head and face on the ground and injured her left wrist and injured her right knee. No loss of consciousness. No prodromal symptoms. She is not on anticoagulation. She has been ambulatory. Denies headache or neck pain denies blurry or double vision denies nausea or vomiting denies weakness or paresthesias or difficulty with speech or ambulation Tetanus Immunization: Unknown Prior similar symptoms: No Recent Illness/Hospitalization: No <Tin Coronel - Last Filed: 06/11/20 15:50> Chief Complaint: Fall Past Medical History <Anatoly Garcia - Last Filed: 06/11/20 15:32> Prior records reviewed: Yes Past Medical History: - - TIA, hypertension, hyperlipidemia Surgical History: - - Bilateral knee replacement Lives: With Family Smoking Status: Never smoker Alcohol: None Drugs: None - Family History Maternal Family History: Reports: - - No coronary artery disease <Tin Coronel - Last Filed: 06/11/20 15:50> - Allergies and Home Meds Allergies/Adverse Reactions: Allergies No Known Allergies Allergy (Verified 06/11/20 13:34) Primary Care Physician: Arnie White DO [STAFF PHYSICIAN] - As soon as possible Sagar Horton Chi, MD [Primary Care Provider] - 3-5 Days Review of Systems All systems negative except as indicated General: Denies: Chills, Fever, Sweats Eyes: Denies: Visual changes - bilaterally, Diplopia ENT: Denies: Rhinorrhea, Sore throat Cardiovascular: Denies: Chest pain, Palpitations Respiratory: Denies: Dyspnea, Cough, Dyspnea on exertion Gastrointestinal: Denies: Abdominal pain, Nausea, Vomiting, Diarrhea, Melena, Hematochezia Genitourinary: Denies: Dysuria, Hematuria, Frequency Musculoskeletal: Reports: Swelling, Extremity Pain. Denies: Neck pain, Back pain Skin: Reports: Abrasions. Denies: Rash, Abscess, Wounds Neurological: Reports: Headache. Denies: Weakness, Numbness <Tin Coronel - Last Filed: 06/11/20 15:50> Physical Exam Vital Signs/Narrative: Vital Signs Temp Pulse Resp BP Pulse Ox 06/11/20 14:08 97 06/11/20 13:32 97.5 F L 76 16 132/96 H 98 <Anatoly Garcia - Last Filed: 06/11/20 15:32> Vital Signs/Narrative: Vital Signs Temp Pulse Resp BP Pulse Ox 06/11/20 13:32 97.5 F L 76 16 132/96 H 98 Inital Vital Signs reviewed: Yes General: Well nourished, Well developed Head: Normocephalic, Trauma - Patient has an abrasion and bruising and swelling over the bridge of her nose. No deformity. No active bleeding but she has dried blood in her nostrils Eyes: Perrl, EOMI ENT: TM's clear, No hemotympanum or drainage, Nasal trauma. Negative for: Hemotympanum, Nasal septal hematoma Neck: Nontender, Full ROM. Negative for: Spinal Tenderness, Paraspinal Tenderness Cardiovascular: Regular rate, Regular rhythm, No murmurs Respiratory: No distress, CTA bilaterally, Chest nontender Abdomen: Soft, Nontender, Nondistended, Normal bowel sounds Back: Nontender Extremeties: Swelling and bruising left distal radius no deformity skin intact she is able to flex and extend actively radial pulses normal normal capillary refill and sensation all 5 fingers no bony tenderness of the hand forearm elbow arm or shoulder or clavicle. Abrasion right anterior knee with mild swelling. No bruising. No redness. Normal active range of motion. Mild bony tenderness anteriorly. Neurovascularly intact distally. Skin: Normal color, No rash, Trauma Neurological: Alert, Oriented x3, Cranial nerves II-XII grossly intact, Normal Strength, Normal Sensation, Normal Gait Psychological: Normal affect, Normal Mood <Tin Coronel - Last Filed: 06/11/20 15:50> Diagnostic/Tx/Re-eval - Medical Decision Making Patient was seen with me. I did a [id number] examination with the patient. Patient presents after a fall that occurred today. Patient states she tripped and fell. Patient did hit her head but denies any loss of consciousness. Patient injured her left wrist and right knee. Daughter states that the patient did not outstretch her hand to catch herself but thinks she injured it when she tried to put it against her body. Patient admits to bleeding from the nares bilaterally but this has stopped. Patient denies any visual changes. Patient denies any diplopia. Patient denies any neck pain. Vital signs are stable. Patient is afebrile. Patient is in no acute distress. There is tenderness, edema, and ecchymosis over the forehead and nose. There is dried blood in the nares bilaterally. There is no septal deviation or septal hematoma noted. There is no bony crepitance or step-off. Pupils are equal, round, reactive to light bilaterally. Extraocular muscles are intact. Extremities are intact. There is tenderness, edema, and ecchymosis over the left distal radius. There is no deformity. Range of motion was limited in all motions of the left wrist secondary to pain. Radial pulses are equal bilaterally. Sensation was intact light touch in the radial, median, and ulnar areas. There is also a superficial abrasion over the anterior aspect of the right knee. There is mild tenderness. There is good range of motion. There is no obvious deformity. Cranial nerves II through XII are intact. There are no focal motor or sensory deficits. CT scan of the brain was obtained. There is no acute intracranial abnormality or bleeding. CT scan of the facial bones was obtained. There are nondisplaced nasal fractures. X-rays of the left wrist were obtained. There is a minimally displaced fracture of the left distal radius. X-rays of the right knee were obtained. There is no acute fracture. CT scan of the cervical spine was also obtained. There is no acute fracture. There are degenerative changes noted. These were all interpreted by the radiologist and reviewed by myself. An Ortho- Glass custom made volar splint was applied to the left wrist and forearm. While in the emergency department, the patient's epistaxis returned. Patient does not want any further treatment done with this. Packing was offered. Patient declined. Patient states she just wants to go home. Patient was instructed to follow-up with her primary care physician in 5 to 7 days. Patient understood and was agreeable with the plan. All questions were answered. <Anatoly Garcia - Last Filed: 06/11/20 15:32> Impressions Brain CT 06/11/20 13:50 IMPRESSION: 1. No acute intracranial hemorrhage or mass effect. 2. Nondisplaced nasal fractures. Anterior nasal septal fracture. Electronically Signed: Isidro Perry MD ([place]) at 14:47 EDT , Service support , Cervical Spine CT 06/11/20 13:50 IMPRESSION: 1. No cervical spine fracture or traumatic subluxation. 2. Multilevel degenerative disc disease with canal and foraminal stenosis most conspicuous at C5-C6. Electronically Signed: Isidro Perry MD ([place]) at 14:53 EDT , Service support , Facial/Sinus 06/11/20 13:52 IMPRESSION: 1. Nondisplaced nasal fractures. Anterior nasal septal fracture. 2. Chronic sinus disease with right maxillary sinus affected to the greatest degree. Electronically Signed: Isidro Perry MD ([place]) at 14:56 EDT , Service support , Knee X-Ray 06/11/20 13:53 IMPRESSION: 1. No acute fracture. 2. Surgical fixation of patella. Overlying soft tissue swelling. Electronically Signed: Isidro Perry MD ([place]) at 14:40 EDT , Service support , Wrist X-Ray 06/11/20 13:53 IMPRESSION: Distal radial fracture. Electronically Signed: Isidro Perry MD ([place]) at 14:42 EDT , Service support , 06/11/20 13:50 Brain/Head without Contrast [CT] Stat Spine Cervical without Contras [CT] Stat 06/11/20 13:52 CT Facial [Sinus/Facial Bone] [CT] Stat 06/11/20 13:53 Wrist min 3 Views [RAD] Stat Xray Knee [Knee 4 or More Views] [RAD] Stat <Tin Coronel - Last Filed: 06/11/20 15:50> Procedures - Upper Extremity Splints Upper Extremity Splint: Orthoglass, - - AP orthoglass splint Splint Fabrication: Fabricated Location: Left <Tin Coronel - Last Filed: 06/11/20 15:50> ED Disposition <Anatoly Garcia - Last Filed: 06/11/20 15:32> <Tin Coronel - Last Filed: 06/11/20 15:50> - Plan for ED Patient: Disposition: Home or Assisted Living Diagnosis: Closed head injury, Nasal fracture, Distal radius fracture, left, Knee contusion Instructions: ED SOFT TISSUE CONTUSION, ED Nose Fracture with X-Ray, ED Fracture Upper Extremity, ED Head Injury Adult Referrals: Arnie White DO [STAFF PHYSICIAN] - As soon as possible Sagar Horton Chi, MD [Primary Care Provider] - 3-5 Days
[2020-06-11 14:08] VITALS: O2SAT 97
[2020-06-11] MEDS: Diphth,Pertuss(Acell),Tet Vac 0.5 ML Vial IM (15:05)
[2020-06-11] MEDS: Oxymetazoline 0.05% 1 SPRAY SPRAY.BTL NASAL (15:05)
[2020-06-11 15:26] VITALS: BP 188/75; PULSE 78; RESP 16; O2SAT 98
== END 2020-06-11 16:06 | disposition home or self-care (01) ==
PROVIDERS: Emergency Provider Physician Assistant Medical; PCP Family Medicine Geriatric Medicine
DX: S52.502A Unspecified fracture of the lower end of left radius, initial encounter for closed fracture (principal); S02.2XXA Fracture of nasal bones, initial encounter for closed fracture; S80.01XA Contusion of right knee, initial encounter; W01.0XXA Fall on same level from slipping, tripping and stumbling without subsequent striking against object, initial encounter; Y93.89 Activity, other specified; Y92.009 Unspecified place in unspecified non-institutional (private) residence as the place of occurrence of the external cause; R04.0 Epistaxis; I10 Essential (primary) hypertension; E78.5 Hyperlipidemia, unspecified; Z96.653 Presence of artificial knee joint, bilateral; Z86.73 Personal history of transient ischemic attack (TIA), and cerebral infarction without residual deficits
CPT/HCPCS: 29125; 70450; 70486; 72125; 73110; 73564; 90471; 90715; 99283

== ENCOUNTER → 2020-07-31 15:05 | Outpatient (CLI) | payer MEDICARE, SELFPAY ==
[2020-07-31 15:24] LABS: Absolute Lymphocyte Count 1.47 X10^3/uL (0.83-4.51); Basophil# 0.04 X10^3/uL; Basophil% 0.5 % (0-1); Eosinophil# 0.13 X10^3/uL; Eosinophils% 1.8 % (0-5); Hemoglobin 13.8 g/dL (12.0-15.0); Lymphocyte # 1.47 X10^3/ul (4.0); Lymphocyte % 19.9 % (19-41); Mean Corp Hgb Conc 32.1 g/dL (32-36); Mean Corpuscular Hgb 31.9 pg (27.0-32.0); Mean Corpuscular Volume 99.3 fL (81-99); Mean Platelet Vol. 11.2 fl (6.2-12.0); Monocyte# 0.67 X10^3/uL; Monocyte% 9.1 % (0-10); NRBC Flagged by Analyzer 0 % (0-5); Neutrophil # 5.03 X10^3/uL (2.7-7.7); Neutrophil % 68.3 % (47-70); Platelet Count 183 K/mm3 (150-450); RBC Distribution Width CV 14.2 % (11.6-14.6); RBC Distribution Width SD 52.1 fl (35.1-43.9); Red Blood Count 4.33 M/mm3 (4.2-5.4); White Blood Count 7.4 K/mm3 (4.4-11.0)
[2020-07-31 16:04] LABS: ALB/GLOB Ratio 1.2 RATIO (0.9-2.4); AST(SGOT) 21 U/L (15-37); Alanine Aminotransfer ALT/SGPT 26 U/L (13-56); Albumin, Serum 3.6 g/dL (3.2-5.0); Alkaline Phosphatase 42 U/L (45-117); Anion Gap 5 (5-15); BUN 23 mg/dL (7-18); BUN/Creat Ratio 23.3 RATIO (10-20); Calcium,Total 9.1 mg/dL (8.5-10.1); Chloride 105 mmol/L (98-107); Creatinine, Serum 0.99 mg/dL (0.55-1.02); EST Glomerular Filtration Rate 57 mL/min (>60); Est Glom Filt Rate - Afr Amer 69 mL/min (>60); Glucose 113 mg/dL (74-106); Potassium 4.8 mmol/L (3.5-5.1); Protein, Total 6.6 g/dL (6.4-8.2); Sodium Level 140 mmol/L (136-145); Thyroid Stim Hormone (TSH) 1.23 uIU/mL (0.358-3.74)
[2020-07-31 17:43] LABS: Vitamin D,25 Hydroxy 39.4 ng/mL
== END ==
PROVIDERS: PCP Family Medicine Geriatric Medicine; Referring Provider Family Medicine Geriatric Medicine; Visit Provider Family Medicine Geriatric Medicine
DX: E55.9 Vitamin D deficiency, unspecified (principal); I10 Essential (primary) hypertension
CPT/HCPCS: 36415; 80053; 82306; 84443; 85025

== ENCOUNTER → 2020-11-22 14:09 | Outpatient (CLI) | payer MEDICARE, SELFPAY ==
[2020-11-22 15:32] LABS: Absolute Lymphocyte Count 1.92 X10^3/uL (0.83-4.51); Absolute Neutrophil Count 3.1 X10^3/uL (2.0-7.7); Basophil# 0.04 X10^3/uL; Basophil% 0.7 % (0-1); Eosinophil# 0.15 X10^3/uL; Eosinophils% 2.6 % (0-5); Hematocrit 41.7 % (37-47); Hemoglobin 13.3 g/dL (12.0-15.0); Lymphocyte # 1.92 X10^3/ul (4.0); Lymphocyte % 33.4 % (19-41); Mean Corp Hgb Conc 31.9 g/dL (32-36); Mean Corpuscular Hgb 31.1 pg (27.0-32.0); Mean Corpuscular Volume 97.7 fL (81-99); Mean Platelet Vol. 11.9 fl (6.2-12.0); Monocyte# 0.54 X10^3/uL; Monocyte% 9.4 % (0-10); NRBC Flagged by Analyzer 0 % (0-5); Neutrophil # 3.08 X10^3/uL (2.7-7.7); Neutrophil % 53.7 % (47-70); Platelet Count 181 K/mm3 (150-450); RBC Distribution Width CV 13.5 % (11.6-14.6); RBC Distribution Width SD 48.5 fl (35.1-43.9); Red Blood Count 4.27 M/mm3 (4.2-5.4); White Blood Count 5.7 K/mm3 (4.4-11.0)
[2020-11-22 16:04] LABS: ALB/GLOB Ratio 1.2 RATIO (0.9-2.4); AST(SGOT) 19 U/L (15-37); Alanine Aminotransfer ALT/SGPT 22 U/L (13-56); Albumin, Serum 3.5 g/dL (3.2-5.0); Alkaline Phosphatase 56 U/L (45-117); Anion Gap 3 (5-15); BUN 18 mg/dL (7-18); BUN/Creat Ratio 18.1 RATIO (10-20); Calcium,Total 8.8 mg/dL (8.5-10.1); Chloride 107 mmol/L (98-107); EST Glomerular Filtration Rate 56 mL/min (>60); Est Glom Filt Rate - Afr Amer 68 mL/min (>60); Globulin 2.9 g/dL (2.2-4.2); Glucose 92 mg/dL (74-106); Potassium 4.6 mmol/L (3.5-5.1); Protein, Total 6.4 g/dL (6.4-8.2); Sodium Level 141 mmol/L (136-145)
== END ==
PROVIDERS: PCP Family Medicine Geriatric Medicine; Referring Provider Internal Medicine Rheumatology; Visit Provider Internal Medicine Rheumatology
DX: M06.4 Inflammatory polyarthropathy (principal); M15.9 Polyosteoarthritis, unspecified; M18.0 Bilateral primary osteoarthritis of first carpometacarpal joints; M81.0 Age-related osteoporosis without current pathological fracture; Q66.70 Congenital pes cavus, unspecified foot; I10 Essential (primary) hypertension; E03.9 Hypothyroidism, unspecified; E78.5 Hyperlipidemia, unspecified; I26.99 Other pulmonary embolism without acute cor pulmonale; I82.519 Chronic embolism and thrombosis of unspecified femoral vein; K52.831 Collagenous colitis
CPT/HCPCS: 36415; 80053; 85025

== ENCOUNTER → 2020-12-08 16:32 | Outpatient (CLI) | payer MEDICARE, SELFPAY ==
[2020-12-11 16:08] LABS: Red Blood Cell Count Test/G6PD 4.18 x10E6/uL (3.77-5.28)
[2020-12-11 19:50] LABS: G6PD Quant Test 289 (127-427)
== END ==
PROVIDERS: PCP Family Medicine Geriatric Medicine; Referring Provider Internal Medicine Rheumatology; Visit Provider Internal Medicine Rheumatology
DX: M06.4 Inflammatory polyarthropathy (principal); M15.9 Polyosteoarthritis, unspecified; M47.897 Other spondylosis, lumbosacral region; M81.0 Age-related osteoporosis without current pathological fracture; Q66.70 Congenital pes cavus, unspecified foot; I10 Essential (primary) hypertension; E03.9 Hypothyroidism, unspecified; E78.5 Hyperlipidemia, unspecified; I26.99 Other pulmonary embolism without acute cor pulmonale; I82.519 Chronic embolism and thrombosis of unspecified femoral vein; K52.831 Collagenous colitis
CPT/HCPCS: 36415; 82955

== ENCOUNTER → 2021-01-26 14:15 | Outpatient (CLI) | payer MEDICARE, SELFPAY ==
[2021-01-26 18:13] LABS: CRP < 2.90 mg/L (0.0-3.0)
[2021-01-29 16:08] LABS: Endomysial Antibody IgA Negative (Negative)
[2021-01-29 18:46] LABS: Immunoglobulin A 65 mg/dL (64-422); t-Transglutaminase IgA <2 U/mL (0-3)
== END ==
PROVIDERS: PCP Family Medicine Geriatric Medicine; Referring Provider Internal Medicine Gastroenterology; Visit Provider Internal Medicine Gastroenterology
DX: R19.7 Diarrhea, unspecified (principal)
CPT/HCPCS: 36415; 82784; 83516; 86140; 86255

== ENCOUNTER → 2021-01-31 13:36 | Outpatient (CLI) | payer MEDICARE, SELFPAY ==
[2021-01-31 16:39] LABS: Absolute Lymphocyte Count 2.15 X10^3/uL (0.83-4.51); Basophil# 0.05 X10^3/uL; Basophil% 0.7 % (0-1); Eosinophil# 0.16 X10^3/uL; Eosinophils% 2.3 % (0-5); Hematocrit 41.8 % (37-47); Hemoglobin 13.1 g/dL (12.0-15.0); Lymphocyte # 2.15 X10^3/ul (0.83-4.51); Lymphocyte % 30.6 % (19-41); Mean Corp Hgb Conc 31.3 g/dL (32-36); Mean Corpuscular Hgb 30.3 pg (27.0-32.0); Mean Corpuscular Volume 96.8 fL (81-99); Mean Platelet Vol. 12.7 fl (6.2-12.0); Monocyte# 0.64 X10^3/uL; Monocyte% 9.1 % (0-10); NRBC Flagged by Analyzer 0 % (0-5); Neutrophil # 4.02 X10^3/uL (2.7-7.7); Neutrophil % 57.2 % (47-70); Platelet Count 210 K/mm3 (150-450); RBC Distribution Width CV 13.7 % (11.6-14.6); RBC Distribution Width SD 48.6 fl (35.1-43.9); Red Blood Count 4.32 M/mm3 (4.2-5.4)
[2021-01-31 16:55] LABS: ALB/GLOB Ratio 1.2 RATIO (0.9-2.4); AST(SGOT) 27 U/L (15-37); Alanine Aminotransfer ALT/SGPT 28 U/L (13-56); Albumin, Serum 3.6 g/dL (3.2-5.0); Alkaline Phosphatase 71 U/L (45-117); Anion Gap 5 (5-15); BUN 18 mg/dL (7-18); BUN/Creat Ratio 15.3 RATIO (10-20); Calcium,Total 9.1 mg/dL (8.5-10.1); Chloride 108 mmol/L (98-107); Creatinine, Serum 1.18 mg/dL (0.55-1.02); EST Glomerular Filtration Rate 46 mL/min (>60); Est Glom Filt Rate - Afr Amer 56 mL/min (>60); Globulin 3.1 g/dL (2.2-4.2); Glucose 95 mg/dL (74-106); Potassium 4.3 mmol/L (3.5-5.1); Protein, Total 6.7 g/dL (6.4-8.2); Sodium Level 141 mmol/L (136-145); Thyroid Stim Hormone (TSH) 1.11 uIU/mL (0.358-3.74)
[2021-02-01 08:12] LABS: Vitamin D,25 Hydroxy 43.4 ng/mL
== END ==
PROVIDERS: PCP Family Medicine Geriatric Medicine; Visit Provider Family Medicine Geriatric Medicine
DX: I10 Essential (primary) hypertension (principal); E55.9 Vitamin D deficiency, unspecified
CPT/HCPCS: 36415; 80053; 82306; 84443; 85025

== ENCOUNTER → 2021-04-23 15:29 | Outpatient (CLI) | payer MEDICARE, SELFPAY ==
[2021-04-23 17:46] LABS: Absolute Lymphocyte Count 1.91 X10^3/uL (0.83-4.51); Absolute Neutrophil Count 3.4 X10^3/uL (2.0-7.7); Basophil# 0.05 X10^3/uL; Basophil% 0.8 % (0-1); Eosinophil# 0.18 X10^3/uL; Hematocrit 41.9 % (37-47); Hemoglobin 13.1 g/dL (12.0-15.0); Lymphocyte # 1.91 X10^3/ul (0.83-4.51); Lymphocyte % 31.8 % (19-41); Mean Corp Hgb Conc 31.3 g/dL (32-36); Mean Corpuscular Hgb 30.4 pg (27.0-32.0); Mean Corpuscular Volume 97.2 fL (81-99); Mean Platelet Vol. 11.8 fl (6.2-12.0); Monocyte# 0.48 X10^3/uL; NRBC Flagged by Analyzer 0 % (0-5); Neutrophil # 3.37 X10^3/uL (2.7-7.7); Neutrophil % 56.2 % (47-70); Platelet Count 205 K/mm3 (150-450); RBC Distribution Width CV 13.5 % (11.6-14.6); RBC Distribution Width SD 48.8 fl (35.1-43.9); Red Blood Count 4.31 M/mm3 (4.2-5.4)
[2021-04-23 18:14] LABS: ALB/GLOB Ratio 1.2 RATIO (0.9-2.4); AST(SGOT) 23 U/L (15-37); Alanine Aminotransfer ALT/SGPT 27 U/L (13-56); Albumin, Serum 3.7 g/dL (3.2-5.0); Alkaline Phosphatase 74 U/L (45-117); Anion Gap 6 (5-15); BUN 18 mg/dL (7-18); BUN/Creat Ratio 15.1 RATIO (10-20); Calcium,Total 8.9 mg/dL (8.5-10.1); Chloride 107 mmol/L (98-107); Creatinine, Serum 1.19 mg/dL (0.55-1.02); EST Glomerular Filtration Rate 46 mL/min (>60); Est Glom Filt Rate - Afr Amer 55 mL/min (>60); Glucose 92 mg/dL (74-106); Potassium 4.2 mmol/L (3.5-5.1); Protein, Total 6.7 g/dL (6.4-8.2); Sodium Level 141 mmol/L (136-145)
== END ==
PROVIDERS: PCP Family Medicine Geriatric Medicine; Referring Provider Internal Medicine Rheumatology; Visit Provider Internal Medicine Rheumatology
DX: M06.4 Inflammatory polyarthropathy (principal); M18.0 Bilateral primary osteoarthritis of first carpometacarpal joints; M47.897 Other spondylosis, lumbosacral region; M81.0 Age-related osteoporosis without current pathological fracture; Q66.70 Congenital pes cavus, unspecified foot; I10 Essential (primary) hypertension; E03.9 Hypothyroidism, unspecified; E78.5 Hyperlipidemia, unspecified; I26.99 Other pulmonary embolism without acute cor pulmonale; I82.519 Chronic embolism and thrombosis of unspecified femoral vein; K52.831 Collagenous colitis
CPT/HCPCS: 36415; 80053; 85025

== ENCOUNTER → 2021-07-05 11:05 | Outpatient (CLI) | payer MEDICARE, SELFPAY ==
[2021-07-07 21:11] LABS: Giardia Lamblia, Stool EIA Negative (Negative)
[2021-07-09 16:54] LABS: Calprotectin, Stool 83 ug/g (0-120)
== END ==
PROVIDERS: PCP Family Medicine Geriatric Medicine; Referring Provider Internal Medicine Gastroenterology; Visit Provider Internal Medicine Gastroenterology
DX: R19.7 Diarrhea, unspecified (principal); Z86.73 Personal history of transient ischemic attack (TIA), and cerebral infarction without residual deficits
CPT/HCPCS: 83993; 87329; 87493; 87506

== ENCOUNTER → 2021-07-12 11:42 | Outpatient (CLI) | payer MEDICARE, SELFPAY ==
[2021-07-12 12:30] LABS: Absolute Lymphocyte Count 2.23 X10^3/uL (0.83-4.51); Absolute Neutrophil Count 3.4 X10^3/uL (2.0-7.7); Basophil# 0.05 X10^3/uL; Basophil% 0.8 % (0-1); Eosinophil# 0.23 X10^3/uL; Eosinophils% 3.5 % (0-5); Hematocrit 43.2 % (37-47); Lymphocyte # 2.23 X10^3/ul (0.83-4.51); Mean Corp Hgb Conc 32.4 g/dL (32-36); Mean Corpuscular Hgb 30.9 pg (27.0-32.0); Mean Corpuscular Volume 95.4 fL (81-99); Mean Platelet Vol. 11.9 fl (6.2-12.0); Monocyte# 0.65 X10^3/uL; Monocyte% 9.9 % (0-10); NRBC Flagged by Analyzer 0 % (0-5); Neutrophil # 3.39 X10^3/uL (2.7-7.7); Neutrophil % 51.6 % (47-70); Platelet Count 195 K/mm3 (150-450); RBC Distribution Width CV 13.8 % (11.6-14.6); RBC Distribution Width SD 48.3 fl (35.1-43.9); Red Blood Count 4.53 M/mm3 (4.2-5.4); White Blood Count 6.6 K/mm3 (4.4-11.0)
[2021-07-12 12:52] LABS: Vitamin D,25 Hydroxy 42.9 ng/mL
[2021-07-12 12:54] LABS: ALB/GLOB Ratio 1.1 RATIO (0.9-2.4); AST(SGOT) 15 U/L (15-37); Alanine Aminotransfer ALT/SGPT 22 U/L (13-56); Albumin, Serum 3.7 g/dL (3.2-5.0); Alkaline Phosphatase 62 U/L (45-117); Anion Gap 6 (5-15); BUN 18 mg/dL (7-18); BUN/Creat Ratio 17.8 RATIO (10-20); Calcium,Total 8.7 mg/dL (8.5-10.1); Chloride 107 mmol/L (98-107); Creatinine, Serum 1.01 mg/dL (0.55-1.02); EST Glomerular Filtration Rate 55 mL/min (>60); Est Glom Filt Rate - Afr Amer 67 mL/min (>60); Globulin 3.3 g/dL (2.2-4.2); Glucose 72 mg/dL (74-106); Potassium 4.2 mmol/L (3.5-5.1); Sodium Level 140 mmol/L (136-145); Thyroid Stim Hormone (TSH) 1.03 uIU/mL (0.358-3.74)
== END ==
PROVIDERS: PCP Family Medicine Geriatric Medicine; Visit Provider Family Medicine Geriatric Medicine
DX: I10 Essential (primary) hypertension (principal); E55.9 Vitamin D deficiency, unspecified
CPT/HCPCS: 36415; 80053; 82306; 84443; 85025

== ENCOUNTER → 2021-08-10 10:34 | Outpatient (CLI) | payer MEDICARE, SELFPAY ==
--- NOTE | 2021-08-10 10:38 | RAD_ITS ---
STUDY: XR Hip Unilateral with Pelvis when performed; 2-3 Views 08/10/2021 10:19 AM REASON FOR EXAM: Female, 85 years old. PAIN Post-Op Total Hip Replacement TECHNIQUE: XR Hip Unilateral with Pelvis when performed; 2-3 Views COMPARISON: None. FINDINGS: There is a non-specific bowel gas pattern. Normal visualized soft tissue structures. There are degenerative changes of the lumbar spine. Normal bilateral iliac wings, sacroiliac joints and visualized sacrum. Normal visualized bilateral superior and inferior pubic rami. Normal pubic symphysis. Normal ischial tuberosities. There are osteoarthritic changes of the right femoral head with marginal osteophyte formation. There is cortical sclerosis with sub-cortical cyst formation of the right acetabulum. There is mild articular joint space narrowing of the right hip. There are osteoarthritic changes of the left femoral head with marginal osteophyte formation. There is osteoarthritic spur formation of the left acetabular rim. There is mild articular joint space narrowing of the left hip. RAD/HIP, UNI W/ Pelvis 2-3 Views IMPRESSION: Degenerative findings of the hips. Electronically Signed: Ryan Gauthier MD at 17:34 EDT , Service support ,
== END ==
PROVIDERS: PCP Family Medicine Geriatric Medicine; Referring Provider Internal Medicine Rheumatology; Visit Provider Internal Medicine Rheumatology
DX: M16.0 Bilateral primary osteoarthritis of hip (principal); M06.4 Inflammatory polyarthropathy; M47.897 Other spondylosis, lumbosacral region; M18.0 Bilateral primary osteoarthritis of first carpometacarpal joints; M81.0 Age-related osteoporosis without current pathological fracture; Q66.70 Congenital pes cavus, unspecified foot; I10 Essential (primary) hypertension; E03.9 Hypothyroidism, unspecified; E78.5 Hyperlipidemia, unspecified; I26.99 Other pulmonary embolism without acute cor pulmonale; I82.519 Chronic embolism and thrombosis of unspecified femoral vein; K52.831 Collagenous colitis; Z95.828 Presence of other vascular implants and grafts; Z79.899 Other long term (current) drug therapy
CPT/HCPCS: 73502

== ENCOUNTER 2021-10-16 14:46 | Outpatient (CLI) | payer MEDICARE, SELFPAY ==
[2021-10-16 18:09] LABS: Absolute Lymphocyte Count 2.23 X10^3/uL (0.83-4.51); Absolute Neutrophil Count 3.6 X10^3/uL (2.0-7.7); Basophil# 0.05 X10^3/uL; Basophil% 0.7 % (0-1); Eosinophil# 0.23 X10^3/uL; Eosinophils% 3.4 % (0-5); Hemoglobin 13.6 g/dL (12.0-15.0); Lymphocyte # 2.23 X10^3/ul (0.83-4.51); Lymphocyte % 33.4 % (19-41); Mean Corp Hgb Conc 32.4 g/dL (32-36); Mean Corpuscular Hgb 31.9 pg (27.0-32.0); Mean Corpuscular Volume 98.6 fL (81-99); Mean Platelet Vol. 11.6 fl (6.2-12.0); Monocyte# 0.51 X10^3/uL; Monocyte% 7.6 % (0-10); NRBC Flagged by Analyzer 0 % (0-5); Neutrophil # 3.63 X10^3/uL (2.7-7.7); Neutrophil % 54.6 % (47-70); Platelet Count 207 K/mm3 (150-450); RBC Distribution Width CV 14.6 % (11.6-14.6); Red Blood Count 4.26 M/mm3 (4.2-5.4); White Blood Count 6.7 K/mm3 (4.4-11.0)
[2021-10-16 18:19] LABS: ALB/GLOB Ratio 1.2 RATIO (0.9-2.4); AST(SGOT) 23 U/L (15-37); Alanine Aminotransfer ALT/SGPT 33 U/L (13-56); Albumin, Serum 3.8 g/dL (3.2-5.0); Alkaline Phosphatase 73 U/L (45-117); Anion Gap 8 (5-15); BUN 19 mg/dL (7-18); BUN/Creat Ratio 17.3 RATIO (10-20); Calcium,Total 9.3 mg/dL (8.5-10.1); Chloride 102 mmol/L (98-107); EST Glomerular Filtration Rate 50 mL/min (>60); Est Glom Filt Rate - Afr Amer 61 mL/min (>60); Globulin 3.2 g/dL (2.2-4.2); Glucose 92 mg/dL (74-106); Sodium Level 140 mmol/L (136-145)
== END 2021-10-16 23:59 | disposition short-term general hospital (02) ==
LOC: MTLAB 14:48
PROVIDERS: PCP Family Medicine Geriatric Medicine; Referring Provider Internal Medicine Rheumatology; Visit Provider Internal Medicine Rheumatology
DX: M06.4 Inflammatory polyarthropathy (principal); I26.99 Other pulmonary embolism without acute cor pulmonale; I82.519 Chronic embolism and thrombosis of unspecified femoral vein; Z79.899 Other long term (current) drug therapy; M15.9 Polyosteoarthritis, unspecified; M18.0 Bilateral primary osteoarthritis of first carpometacarpal joints; M47.897 Other spondylosis, lumbosacral region; M81.0 Age-related osteoporosis without current pathological fracture; Q66.70 Congenital pes cavus, unspecified foot; I10 Essential (primary) hypertension; E03.9 Hypothyroidism, unspecified; E78.5 Hyperlipidemia, unspecified; K52.831 Collagenous colitis
CPT/HCPCS: 36415; 80053; 85025

== ENCOUNTER 2021-12-04 13:00 | Outpatient (CLI) | payer MEDICARE, SELFPAY ==
--- NOTE | 2021-12-04 13:06 | CT_ITS ---
STUDY: CTA OF THE BRAIN REASON FOR EXAM: Female, 86 years old. HEADACHES RADIATION DOSAGE (If Supplied By Facility): CTDIvol = ( 26.65 ) mGy, DLP = ( 1152.96 ) mGycm TECHNIQUE: CT angiography was performed with a multi-detector CT scanner. Data acquisition was obtained from the skull base through the vertex following intravenous administration of IV 100mL [id number]. MIP images were reconstructed from the axial data set. Post-processing of the angiographic images was performed, with multiplanar reformation and 3D reconstruction. Individualized dose optimization techniques were used for this CT. COMPARISON: None. FINDINGS: Normal bilateral petrous carotid arteries. There is calcified plaque formation of the right cavernous carotid artery, without a cross-sectional luminal stenosis. There is calcified plaque formation of the left cavernous carotid artery, without a cross-sectional luminal stenosis. Normal right A1 segments of the anterior cerebral artery. Normal left A1 segments of the anterior cerebral artery. Normal intact anterior communicating artery (ACOM). Normal bilateral A2 segments of the anterior cerebral arteries. Normal right M1 and M2 segments of the middle cerebral arteries, with a normal M1 bifurcation. Normal left M1 and M2 segments of the middle cerebral arteries, with a normal M1 bifurcation. Normal right posterior communicating artery (PCOM). Normal left posterior communicating artery (PCOM). Normal bilateral vertebral arteries. Normal basilar artery with a normal basilar bifurcation. The visualized bilateral superior cerebellar (SCA) arteries are normal. Normal bilateral P1, P2 and visualized P3 segments of the posterior cerebral arteries. There is no demonstrated aneurysm of the [place]. Cerebral atrophy. This is unchanged as compared to prior examination dated 06/11/2020. Chronic right maxillary sinusitis. CT/CTA Head W/WO Contrast IMPRESSION: Normal [place] without a demonstrated aneurysm or hemodynamically significant stenosis. Electronically Signed: Jensen Good MD at 14:38 EST ,
[2021-12-04 13:40] LABS: CREATININE FINGERSTICK 1.1 mg/dL (0.55-1.02)
== END 2021-12-04 23:59 | disposition home or self-care (01) ==
LOC: CT 13:02
PROVIDERS: PCP Family Medicine Geriatric Medicine; Referring Provider Family Medicine Geriatric Medicine; Visit Provider Family Medicine Geriatric Medicine
DX: I67.1 Cerebral aneurysm, nonruptured (principal); R51.9 Headache, unspecified
CPT/HCPCS: 70496; Q9967

== ENCOUNTER → 2022-02-07 | Outpatient (CLI) | payer MEDICARE, SELFPAY ==
[2022-02-07 12:36] LABS: Absolute Lymphocyte Count 2.15 X10^3/uL (0.83-4.51); Absolute Neutrophil Count 3.2 X10^3/uL (2.0-7.7); Basophil# 0.08 X10^3/uL; Basophil% 1.1 % (0-1); Eosinophil# 1.29 X10^3/uL; Eosinophils% 17.5 % (0-5); Hematocrit 40.2 % (37-47); Hemoglobin 13.1 g/dL (12.0-15.0); Lymphocyte # 2.15 X10^3/ul (0.83-4.51); Lymphocyte % 29.1 % (19-41); Mean Corp Hgb Conc 32.6 g/dL (32-36); Mean Corpuscular Hgb 31.5 pg (27.0-32.0); Mean Corpuscular Volume 96.6 fL (81-99); Mean Platelet Vol. 12.7 fl (6.2-12.0); Monocyte# 0.68 X10^3/uL; Monocyte% 9.2 % (0-10); NRBC Flagged by Analyzer 0 % (0-5); Neutrophil # 3.17 X10^3/uL (2.7-7.7); Platelet Count 185 K/mm3 (150-450); RBC Distribution Width CV 13.7 % (11.6-14.6); RBC Distribution Width SD 49.2 fl (35.1-43.9); Red Blood Count 4.16 M/mm3 (4.2-5.4); White Blood Count 7.4 K/mm3 (4.4-11.0)
[2022-02-07 12:48] LABS: Vitamin D,25 Hydroxy 36.3 ng/mL
[2022-02-07 13:01] LABS: ALB/GLOB Ratio 1.1 RATIO (0.9-2.4); AST(SGOT) 23 U/L (15-37); Alanine Aminotransfer ALT/SGPT 24 U/L (13-56); Albumin, Serum 3.4 g/dL (3.2-5.0); Alkaline Phosphatase 66 U/L (45-117); Anion Gap 5 (5-15); BUN 17 mg/dL (7-18); BUN/Creat Ratio 16.8 RATIO (10-20); Calcium,Total 8.6 mg/dL (8.5-10.1); Chloride 107 mmol/L (98-107); Creatinine, Serum 1.01 mg/dL (0.55-1.02); EST Glomerular Filtration Rate 55 mL/min (>60); Est Glom Filt Rate - Afr Amer 67 mL/min (>60); Globulin 3.1 g/dL (2.2-4.2); Glucose 85 mg/dL (74-106); Potassium 4.4 mmol/L (3.5-5.1); Protein, Total 6.5 g/dL (6.4-8.2); Sodium Level 138 mmol/L (136-145); Thyroid Stim Hormone (TSH) 1.03 uIU/mL (0.358-3.74)
== END | disposition home or self-care (01) ==
LOC: POLAB3 11:00
PROVIDERS: PCP Family Medicine Geriatric Medicine; Visit Provider Family Medicine Geriatric Medicine
DX: E55.9 Vitamin D deficiency, unspecified (principal); I10 Essential (primary) hypertension
CPT/HCPCS: 36415; 80053; 82306; 84443; 85025

== ENCOUNTER 2022-02-26 09:28 | Outpatient (RCR) | payer MEDICARE, SELFPAY ==
[2022-02-26 10:05] VITALS: BP 135/87; PULSE 72; TEMP 36.3
[2022-02-26 10:21] VITALS: BMI 22.8
--- NOTE | 2022-02-26 12:29 | PCM.WC.HP ---
History of Present Illness Date of Service: 02/26/22 Chief Complaint: Chronic venous insufficiency, varicose veins with inflammation, leg pain History of Wound: This is an 86-year-old female of relatively normal body habitus. She presents due to concerns regarding pain on the right lateral calf. This has been present for approximately 1 year. It had its inception approximately 1 year ago when she suffered trauma to the area, and developed a large hematoma. The skin remained intact, and the hematoma subsequently resolved. She apparently had developed cellulitis at the time, which was treated with oral antibiotic by her primary care physician. As result, however, the patient has had chronic pain and discomfort at this site. She denies swelling. She has a history of acute deep vein thrombosis in 1997 following a left leg fracture, with subsequent pulmonary embolism. She is not currently on systemic anticoagulation therapy. She sleeps on a flat mattress at night. She claims to be active. She ambulates liberally, and able to walk 2-3 blocks without limitation. She describes the pain on the right lateral calf, which is chronic in nature, as a stinging sensation. She has intermittently worn compression stockings, though she is unaware of the degree of compression. She has previously been evaluated relative to her venous disease and 2014/2015, and found to have incompetent of the right great saphenous vein, the left great saphenous vein, the left small saphenous vein, and 2 accessory saphenous veins in the left lower extremity. Although superficial venous ablation was considered at the time, the patient did not pursue this option. The patient has a history of hypertension, hypothyroidism, arthritis, hyperlipidemia, and osteoporosis. [facility] Medical History (Updated 02/26/22 @ 12:[address] 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 Home Medications levothyroxine 75 mcg PO DAILY 07/23/13 [History Last Taken 11/13/19] calcium carbonate-vitamin D3 1 ea PO DAILY 02/10/14 [History Last Taken Unknown] cholecalciferol (vitamin D3) 25 mg PO DAILY 02/10/14 [History Last Taken Unknown] cyanocobalamin (vitamin B-12) 500 mcg PO DAILY@0800 02/10/14 [History Last Taken Unknown] denosumab 60 mg SQ .6MONTHS 05/29/19 [History Last Taken Unknown] hydroxychloroquine 300 mg PO DAILY 05/29/19 [History Last Taken Unknown] metoprolol succinate 25 mg PO DAILY 05/29/19 [History Last Taken Unknown] acetaminophen 650 mg PO Q6H PRN PRN #100 tab 11/15/19 [Rx Last Taken Unknown] melatonin 10 mg capsule 10 mg PO HS PRN 07/04/21 [History Last Taken Unknown] rifaximin 550 mg tablet 550 mg PO TID #42 tab 07/04/21 [Rx Last Taken Unknown] Allergy/AdvReac Type Severity Reaction Status Date / Time No Known Allergies Allergy Verified 07/25/21 11:04 Social History Smoking Status: Never smoker Vital Signs Vital Signs Vital Signs: 02/26/22 10:05 Temperature 97.4 F L Temperature Source Temporal Pulse Rate 72 Blood Pressure 135/87 H Blood Pressure Mean 103 Blood Pressure Source Monitor Blood Pressure Position Semi-Fowlers Blood Pressure Location Left Arm Weight Weight: 125 lb Body Mass Index (BMI) 22.8 Physical Exam Const alert, oriented x3, no apparent distress, average body habitus and well nourished General Appearance: cooperative, comfortable, well kempt and well developed Orientation / Consciousness: awake, oriented to person, oriented to place and oriented to time Exam Limitations: no limitations HEENT normocephalic, head/scalp atraumatic and hearing grossly normal bilaterally Head and Scalp: normal to inspection, normocephalic and atraumatic External Ear: external ears normal Eyes PERRL and EOMs intact bilaterally General Eye: normal appearance of both eyes Resp normal respiratory effort, normal air movement, no retractions and no use of accessory muscles Effort and Inspection: able to speak in complete sentences Extremity no calf tenderness Extremity Narrative: There are no open wounds or ulcerations in the patient's lower extremities. There is no significant swelling or edema. Mild hyperpigmentation and hemosiderin staining is noted in the gaiter areas bilaterally. Scattered varicosities are noted in the lower extremities bilaterally. General Extremity: Negative for clubbing or cyanosis Neuro oriented x3, CN's II-XII intact bilaterally and moves all extremities Sensorium / Orientation: awake, alert, oriented to person, oriented to place and oriented to time Psych Appearance: grossly normal and appropriate Attitude: calm Activity / Motor Behavior: appropriate eye contact Speech: normal speech Mood & Affect: euthymic mood Thought Process: normal thought process Thought Content: normal thought content Attention / Concentration: attention grossly intact Debridement Note Debridement Note No debridement was completed: No debridement was completed today (There are no open wounds or ulcerations.) Post-Debridement Measurements and Additional Note: Post-Debridement Measurements/Treatment WC - Nurse 1 - General Ulcer Assessment Start: 02/26/22 10:05 Freq: Status: Active Protocol: LEDY.LOWEXT Activity Type Activity Date Activity User E-Sign Co-Sign Detail Recorded Client Recorded Date Recorded By Document 02/26/22 10:05 RAMIRO [id number] 02/26/22 10:14 KR Document 02/26/22 10:21 RAMIRO [id number] 02/26/22 10:22 KR 02/26/22 02/26/22 10:05 10:21 WC - Today's Visit Information Type of service Initial Visit Arrival Mode Ambulatory Patient Identification Verified (Name & Yes ) Height and Weight Height 5 ft 2 in Weight 125 lb Weight in Pounds 125.0 lbs Body Mass Index (BMI) 22.8 BMI Classification Normal BSA - Ivet 1.57 Vital Signs Temperature (97.8 F-99.1 F) 97.4 F L Temperature Source Temporal Pulse Rate (60-100) 72 Pulse Location Monitor Blood Pressure (90/60-120/80) 135/87 H Blood Pressure Mean 103 Source Monitor Position Semi-Fowlers Blood Pressure Location Left Arm History Since Last Visit- (Skip if this is Patient's initial visit) Have you changed medications since your No last visit? Any new allergies or adverse reactions No Had a fall/change in ADL's that may No increase risk of falls Signs or symptoms of abuse and/or No neglect since last visit Have you been in the hospital since your No last visit? Has dressing in place as prescribed No Has compression in place as prescribed N/A Has offloadiing in place as prescribed N/A Experienced any changes in pain level or No management Left Footwear Regular Shoe Right Footwear Regular Shoe Pain Scale: 0-10 Numeric Is Patient Pain Free? Yes Yes LEDY - Nurse 1 - General Ulcer Measurement Start: 02/26/22 10:05 Freq: Status: Active Protocol: Activity Type Activity Date Activity User E-Sign Co-Sign Detail Recorded Client Recorded Date Recorded By Document 02/26/22 10:05 RAMIRO [id number] 02/26/22 10:14 RAMIRO 02/26/22 10:05 Wound Center Nurse 1 Right Calf (cm) 33 Right Ankle (cm) 18.5 Left Calf (cm) 32.5 Left Ankle (cm) 18.5 Assessment/Plan Assessment/Plan (1) Right leg pain: CODE(S): M79.604 - Pain in right leg (2) Varicose veins of both lower extremities with inflammation: CODE(S): I83.11 - Varicose veins of right lower extremity with inflammation; I83.12 - Varicose veins of left lower extremity with inflammation (3) Chronic venous insufficiency: CODE(S): I87.2 - Venous insufficiency (chronic) (peripheral) (4) History of deep vein thrombosis: CODE(S): Z86.718 - Personal history of other venous thrombosis and embolism (5) History of pulmonary embolism: CODE(S): Z86.711 - Personal history of pulmonary embolism (6) Hypertension: CODE(S): I10 - Essential (primary) hypertension QUALIFIERS: Hypertension type: essential hypertension Qualified Code(s): I10 - Essential (primary) hypertension (7) GERD (gastroesophageal reflux disease): CODE(S): K21.9 - Gastro-esophageal reflux disease without esophagitis QUALIFIERS: Esophagitis presence: esophagitis presence not specified Qualified Code(s): K21.9 - Gastro-esophageal reflux disease without esophagitis (8) S/P AAA repair: CODE(S): Z98.890 - Other specified postprocedural states; Z86.79 - Personal history of other diseases of the circulatory system (9) Hypothyroid: CODE(S): E03.9 - Hypothyroidism, unspecified QUALIFIERS: Hypothyroidism type: unspecified Qualified Code(s): E03.9 - Hypothyroidism, unspecified (10) History of left knee replacement: CODE(S): Z96.652 - Presence of left artificial knee joint (11) Osteoporosis: CODE(S): M81.0 - Age-related osteoporosis without current pathological fracture (12) History of patellar fracture: CODE(S): Z87.81 - Personal history of (healed) traumatic fracture (13) History of cerebral aneurysm: CODE(S): Z86.79 - Personal history of other diseases of the circulatory system (14) History of TIA (transient ischemic attack): CODE(S): Z86.73 - Personal history of transient ischemic attack (TIA), and cerebral infarction without residual deficits (15) Arthritis: CODE(S): M19.90 - Unspecified osteoarthritis, unspecified site PLAN: This is an 86-year-old female with a longstanding history of chronic venous insufficiency, varicose veins with inflammation, and lower extremity pain and discomfort associated with her venous disease. Approximately 1 year ago, patient suffered blunt trauma to the right lateral calf, which resulted in a hematoma, which has since resorbed. Nonetheless, the patient appears to have had chronic pain at the site since that time. Given the patient's longstanding history of venous disease we have discussed the options of management. Given her advanced age, and in consideration of the patient's preferences, we are to forego plans for aggressive management of the patient's venous disease. Rather, we are to implement a protocol of conservative treatment measures. These have been discussed with the patient in detail. She is to elevate her lower extremities is much as possible. She is to continue sleeping on a flat mattress at night. Her legs are to be elevated even during daytime hours, is much as possible. Elevation is to be to heart level, or higher. Activity has been encouraged. Prolonged idle sitting has been discouraged. Patient's weight appears to be satisfactory, and she has been discouraged from gaining weight. The patient has been provided a prescription for graduated compression stockings of 15 to 20 mmHg compression, knee-high length. Because of her advanced age, limited flexibility, and arthritis, compression of 15 to 20 mmHg has been prescribed, rather than a higher degree of compression. The patient is to follow-up henceforth on an as-needed basis. She appears comfortable with the recommended conservative treatment measures. A more aggressive approach does not appear warranted at this time. Total time: 65 minutes
== END 2022-02-26 13:26 | disposition home or self-care (01) ==
LOC: WC 09:28
PROVIDERS: PCP Family Medicine Geriatric Medicine; Visit Provider Surgery
DX: I83.11 Varicose veins of right lower extremity with inflammation (principal); M19.90 Unspecified osteoarthritis, unspecified site; M79.604 Pain in right leg; I10 Essential (primary) hypertension; E03.9 Hypothyroidism, unspecified; K21.9 Gastro-esophageal reflux disease without esophagitis; Z79.899 Other long term (current) drug therapy; Z79.890 Hormone replacement therapy; E78.5 Hyperlipidemia, unspecified; Z86.711 Personal history of pulmonary embolism; Z86.718 Personal history of other venous thrombosis and embolism
CPT/HCPCS: 99213; G0463

== ENCOUNTER → 2022-04-11 | Outpatient (CLI) | payer MEDICARE, SELFPAY ==
[2022-04-11 15:11] LABS: Absolute Lymphocyte Count 2.35 X10^3/uL (0.83-4.51); Absolute Neutrophil Count 3.8 X10^3/uL (2.0-7.7); Basophil# 0.06 X10^3/uL; Basophil% 0.9 % (0-1); Eosinophil# 0.14 X10^3/uL; Hematocrit 40.8 % (37-47); Hemoglobin 13.1 g/dL (12.0-15.0); Lymphocyte # 2.35 X10^3/ul (0.83-4.51); Lymphocyte % 33.3 % (19-41); Mean Corp Hgb Conc 32.1 g/dL (32-36); Mean Corpuscular Hgb 31.8 pg (27.0-32.0); Mean Platelet Vol. 11.9 fl (6.2-12.0); Monocyte# 0.68 X10^3/uL; Monocyte% 9.6 % (0-10); NRBC Flagged by Analyzer 0 % (0-5); Neutrophil # 3.81 X10^3/uL (2.7-7.7); Neutrophil % 54.1 % (47-70); Platelet Count 185 K/mm3 (150-450); RBC Distribution Width CV 13.7 % (11.6-14.6); RBC Distribution Width SD 49.8 fl (35.1-43.9); Red Blood Count 4.12 M/mm3 (4.2-5.4); White Blood Count 7.1 K/mm3 (4.4-11.0)
[2022-04-11 15:36] LABS: ALB/GLOB Ratio 1.2 RATIO (0.9-2.4); AST(SGOT) 18 U/L (15-37); Alanine Aminotransfer ALT/SGPT 21 U/L (13-56); Albumin, Serum 3.4 g/dL (3.2-5.0); Alkaline Phosphatase 60 U/L (45-117); Anion Gap 5 (5-15); BUN 14 mg/dL (7-18); BUN/Creat Ratio 12.7 RATIO (10-20); Calcium,Total 9.2 mg/dL (8.5-10.1); Chloride 108 mmol/L (98-107); EST Glomerular Filtration Rate 50 mL/min (>60); Est Glom Filt Rate - Afr Amer 61 mL/min (>60); Globulin 2.9 g/dL (2.2-4.2); Glucose 96 mg/dL (74-106); Potassium 4.3 mmol/L (3.5-5.1); Protein, Total 6.3 g/dL (6.4-8.2); Sodium Level 142 mmol/L (136-145)
== END | disposition home or self-care (01) ==
PROVIDERS: PCP Family Medicine Geriatric Medicine; Referring Provider Internal Medicine Rheumatology; Visit Provider Internal Medicine Rheumatology
DX: M06.4 Inflammatory polyarthropathy (principal); I26.99 Other pulmonary embolism without acute cor pulmonale; I82.519 Chronic embolism and thrombosis of unspecified femoral vein; M70.61 Trochanteric bursitis, right hip; M18.0 Bilateral primary osteoarthritis of first carpometacarpal joints; M47.897 Other spondylosis, lumbosacral region; M81.0 Age-related osteoporosis without current pathological fracture; Q66.70 Congenital pes cavus, unspecified foot; I10 Essential (primary) hypertension; E03.9 Hypothyroidism, unspecified; E78.5 Hyperlipidemia, unspecified; K52.831 Collagenous colitis; Z79.899 Other long term (current) drug therapy
CPT/HCPCS: 36415; 80053; 85025

== ENCOUNTER → 2022-08-08 | Outpatient (CLI) | payer MEDICARE, SELFPAY ==
[2022-08-08 12:35] LABS: Absolute Lymphocyte Count 1.23 X10^3/uL (0.83-4.51); Basophil# 0.05 X10^3/uL; Basophil% 0.7 % (0-1); Eosinophil# 0.49 X10^3/uL; Eosinophils% 6.4 % (0-5); Hematocrit 40.2 % (37-47); Hemoglobin 13.3 g/dL (12.0-15.0); Lymphocyte # 1.23 X10^3/ul (0.83-4.51); Lymphocyte % 16.2 % (19-41); Mean Corp Hgb Conc 33.1 g/dL (32-36); Mean Corpuscular Hgb 31.9 pg (27.0-32.0); Mean Corpuscular Volume 96.4 fL (81-99); Mean Platelet Vol. 11.8 fl (6.2-12.0); Monocyte# 0.85 X10^3/uL; Monocyte% 11.2 % (0-10); NRBC Flagged by Analyzer 0 % (0-5); Neutrophil # 4.96 X10^3/uL (2.7-7.7); Neutrophil % 65.2 % (47-70); Platelet Count 207 K/mm3 (150-450); RBC Distribution Width CV 14.4 % (11.6-14.6); RBC Distribution Width SD 50.6 fl (35.1-43.9); Red Blood Count 4.17 M/mm3 (4.2-5.4); White Blood Count 7.6 K/mm3 (4.4-11.0)
[2022-08-08 12:46] LABS: Vitamin D,25 Hydroxy 38.7 ng/mL
[2022-08-08 13:00] LABS: AST(SGOT) 18 U/L (15-37); Alanine Aminotransfer ALT/SGPT 23 U/L (13-56); Albumin, Serum 3.6 g/dL (3.2-5.0); Alkaline Phosphatase 87 U/L (45-117); Anion Gap 8 (5-15); BUN 15 mg/dL (7-18); BUN/Creat Ratio 15.2 RATIO (10-20); Calcium,Total 9.3 mg/dL (8.5-10.1); Chloride 103 mmol/L (98-107); Creatinine, Serum 0.99 mg/dL (0.55-1.02); EST Glomerular Filtration Rate 56 mL/min (>60); Est Glom Filt Rate - Afr Amer 68 mL/min (>60); Globulin 3.7 g/dL (2.2-4.2); Glucose 89 mg/dL (74-106); Potassium 4.1 mmol/L (3.5-5.1); Protein, Total 7.3 g/dL (6.4-8.2); Sodium Level 137 mmol/L (136-145); Thyroid Stim Hormone (TSH) 1.85 uIU/mL (0.358-3.74)
== END | disposition home or self-care (01) ==
LOC: POLAB3 09:05
PROVIDERS: PCP Family Medicine Geriatric Medicine; Visit Provider Family Medicine Geriatric Medicine
DX: I10 Essential (primary) hypertension (principal); E55.9 Vitamin D deficiency, unspecified
CPT/HCPCS: 36415; 80053; 82306; 84443; 85025

== ENCOUNTER → 2022-10-01 | Outpatient (CLI) | payer MEDICARE, SELFPAY ==
--- NOTE | 2022-10-01 16:15 | RAD_ITS ---
STUDY: X-RAY - UNILATERAL RIBS ( RIGHT ) WITH CHEST REASON FOR EXAM: Female, 87 years old. RIB PAIN TECHNIQUE - RIBS: 3 view(s) of the ribs. TECHNIQUE - CHEST: Single frontal view of the chest. COMPARISON: November 13, 2019 FINDINGS - RIBS: Normal visualized ribs without a demonstrated fracture. FINDINGS - CHEST: Lungs are hyperaerated. IVC filter present right abdomen 23. The lungs are clear and expanded. There is no demonstrated pleural abnormality. No pneumothorax. Normal size heart. Normal mediastinum and janis. Normal visualized pulmonary arteries. Normal visualized aortic arch and descending thoracic aorta. Scoliosis. Degenerative changes right humeral head. There is no demonstrated abnormality of the visualized soft tissue structures of the upper abdomen. RAD/Ribs Uni Min 3V w/PA Chest IMPRESSION: RIBS: Normal x-ray examination of the ribs. CHEST: No acute disease Electronically Signed: Eddie Sim MD at 19:19 EST ,
== END | disposition home or self-care (01) ==
LOC: RAD 16:10
PROVIDERS: PCP Family Medicine Geriatric Medicine; Referring Provider Family Medicine Geriatric Medicine; Visit Provider Family Medicine Geriatric Medicine
DX: R07.81 Pleurodynia (principal)
CPT/HCPCS: 71101

== ENCOUNTER → 2022-10-22 | Outpatient (CLI) | payer MEDICARE, SELFPAY ==
[2022-10-22 18:04] LABS: Absolute Neutrophil Count 4.7 X10^3/uL (2.0-7.7); Basophil# 0.06 X10^3/uL; Basophil% 0.7 % (0-1); Eosinophil# 0.16 X10^3/uL; Hematocrit 40.4 % (37-47); Lymphocyte % 31.8 % (19-41); Mean Corp Hgb Conc 32.2 g/dL (32-36); Mean Corpuscular Volume 96.4 fL (81-99); Mean Platelet Vol. 12.1 fl (6.2-12.0); Monocyte# 0.65 X10^3/uL; NRBC Flagged by Analyzer 0.2 % (0-5); Neutrophil # 4.69 X10^3/uL (2.7-7.7); Neutrophil % 57.4 % (47-70); Platelet Count 199 K/mm3 (150-450); RBC Distribution Width CV 13.5 % (11.6-14.6); RBC Distribution Width SD 47.9 fl (35.1-43.9); Red Blood Count 4.19 M/mm3 (4.2-5.4); White Blood Count 8.2 K/mm3 (4.4-11.0)
[2022-10-22 18:56] LABS: ALB/GLOB Ratio 1.4 RATIO (0.9-2.4); AST(SGOT) 19 U/L (15-37); Alanine Aminotransfer ALT/SGPT 38 U/L (13-56); Albumin, Serum 3.7 g/dL (3.2-5.0); Alkaline Phosphatase 78 U/L (45-117); Anion Gap 9 (5-15); BUN 21 mg/dL (7-18); BUN/Creat Ratio 19.6 RATIO (10-20); Calcium,Total 9.8 mg/dL (8.5-10.1); Chloride 105 mmol/L (98-107); Creatinine, Serum 1.07 mg/dL (0.55-1.02); EST Glomerular Filtration Rate 52 mL/min (>60); Est Glom Filt Rate - Afr Amer 62 mL/min (>60); Globulin 2.7 g/dL (2.2-4.2); Glucose 82 mg/dL (74-106); Potassium 4.4 mmol/L (3.5-5.1); Protein, Total 6.4 g/dL (6.4-8.2); Sodium Level 141 mmol/L (136-145)
== END | disposition home or self-care (01) ==
LOC: MTLAB 14:25
PROVIDERS: PCP Family Medicine Geriatric Medicine; Referring Provider Internal Medicine Rheumatology; Visit Provider Internal Medicine Rheumatology
DX: M06.4 Inflammatory polyarthropathy (principal); M25.551 Pain in right hip; M18.0 Bilateral primary osteoarthritis of first carpometacarpal joints; M47.897 Other spondylosis, lumbosacral region; M81.0 Age-related osteoporosis without current pathological fracture; Q66.70 Congenital pes cavus, unspecified foot; I10 Essential (primary) hypertension; K52.831 Collagenous colitis; Z86.711 Personal history of pulmonary embolism; Z79.899 Other long term (current) drug therapy
CPT/HCPCS: 36415; 80053; 85025

== ENCOUNTER → 2023-02-13 | Outpatient (CLI) | payer MEDICARE, SELFPAY ==
[2023-02-13 12:11] LABS: Absolute Lymphocyte Count 2.26 X10^3/uL (0.83-4.51); Absolute Neutrophil Count 4.4 X10^3/uL (2.0-7.7); Basophil# 0.06 X10^3/uL; Basophil% 0.8 % (0-1); Eosinophil# 0.28 X10^3/uL; Eosinophils% 3.6 % (0-5); Hematocrit 42.8 % (37-47); Hemoglobin 13.7 g/dL (12.0-15.0); Lymphocyte # 2.26 X10^3/ul (0.83-4.51); Lymphocyte % 29.2 % (19-41); Mean Corpuscular Hgb 31.4 pg (27.0-32.0); Mean Corpuscular Volume 97.9 fL (81-99); Mean Platelet Vol. 12.7 fl (6.2-12.0); Monocyte# 0.74 X10^3/uL; Monocyte% 9.6 % (0-10); NRBC Flagged by Analyzer 0 % (0-5); Neutrophil # 4.38 X10^3/uL (2.7-7.7); Neutrophil % 56.5 % (47-70); Platelet Count 192 K/mm3 (150-450); RBC Distribution Width CV 13.5 % (11.6-14.6); RBC Distribution Width SD 49.1 fl (35.1-43.9); Red Blood Count 4.37 M/mm3 (4.2-5.4); White Blood Count 7.7 K/mm3 (4.4-11.0)
[2023-02-13 12:26] LABS: Vitamin D,25 Hydroxy 38.3 ng/mL
[2023-02-13 12:30] LABS: ALB/GLOB Ratio 1.2 RATIO (0.9-2.4); AST(SGOT) 21 U/L (15-37); Alanine Aminotransfer ALT/SGPT 29 U/L (13-56); Albumin, Serum 3.6 g/dL (3.2-5.0); Alkaline Phosphatase 80 U/L (45-117); Anion Gap 4 (5-15); BUN 14 mg/dL (7-18); BUN/Creat Ratio 15.7 RATIO (10-20); Calcium,Total 9.2 mg/dL (8.5-10.1); Chloride 109 mmol/L (98-107); Creatinine, Serum 0.89 mg/dL (0.55-1.02); EST Glomerular Filtration Rate 64 mL/min (>60); Est Glom Filt Rate - Afr Amer 77 mL/min (>60); Glucose 91 mg/dL (74-106); Potassium 4.2 mmol/L (3.5-5.1); Protein, Total 6.6 g/dL (6.4-8.2); Sodium Level 140 mmol/L (136-145); Thyroid Stim Hormone (TSH) 2.33 uIU/mL (0.358-3.74)
== END | disposition home or self-care (01) ==
LOC: POLAB3 09:13
PROVIDERS: PCP Family Medicine Geriatric Medicine; Visit Provider Family Medicine Geriatric Medicine
DX: I10 Essential (primary) hypertension (principal); E55.9 Vitamin D deficiency, unspecified
CPT/HCPCS: 36415; 80053; 82306; 84443; 85025

== ENCOUNTER → 2023-03-27 | Outpatient (CLI) | payer MEDICARE, SELFPAY ==
[2023-03-27 10:20] LABS: Absolute Neutrophil Count 3.2 X10^3/uL (2.0-7.7); Basophil# 0.06 X10^3/uL; Eosinophil# 0.48 X10^3/uL; Eosinophils% 7.9 % (0-5); Hematocrit 41.3 % (37-47); Hemoglobin 13.1 g/dL (12.0-15.0); Lymphocyte % 27.9 % (19-41); Mean Corp Hgb Conc 31.7 g/dL (32-36); Mean Corpuscular Hgb 31.2 pg (27.0-32.0); Mean Corpuscular Volume 98.3 fL (81-99); Mean Platelet Vol. 11.7 fl (6.2-12.0); Monocyte# 0.69 X10^3/uL; Monocyte% 11.3 % (0-10); NRBC Flagged by Analyzer 0 % (0-5); Neutrophil # 3.15 X10^3/uL (2.7-7.7); Neutrophil % 51.6 % (47-70); Platelet Count 185 K/mm3 (150-450); RBC Distribution Width CV 13.4 % (11.6-14.6); RBC Distribution Width SD 48.9 fl (35.1-43.9); White Blood Count 6.1 K/mm3 (4.4-11.0)
[2023-03-27 11:00] LABS: ALB/GLOB Ratio 1.2 RATIO (0.9-2.4); AST(SGOT) 19 U/L (15-37); Alanine Aminotransfer ALT/SGPT 21 U/L (13-56); Albumin, Serum 3.4 g/dL (3.2-5.0); Alkaline Phosphatase 75 U/L (45-117); Anion Gap 5 (5-15); BUN 13 mg/dL (7-18); BUN/Creat Ratio 14.8 RATIO (10-20); Calcium,Total 8.6 mg/dL (8.5-10.1); Chloride 108 mmol/L (98-107); Creatinine, Serum 0.88 mg/dL (0.55-1.02); EST Glomerular Filtration Rate 65 mL/min (>60); Est Glom Filt Rate - Afr Amer 79 mL/min (>60); Globulin 2.9 g/dL (2.2-4.2); Glucose 95 mg/dL (74-106); Potassium 4.1 mmol/L (3.5-5.1); Protein, Total 6.3 g/dL (6.4-8.2); Sodium Level 140 mmol/L (136-145)
== END | disposition home or self-care (01) ==
LOC: MTLAB 08:21
PROVIDERS: PCP Family Medicine Geriatric Medicine; Referring Provider Internal Medicine Rheumatology; Visit Provider Internal Medicine Rheumatology
DX: M06.00 Rheumatoid arthritis without rheumatoid factor, unspecified site (principal); Z79.899 Other long term (current) drug therapy
CPT/HCPCS: 36415; 80053; 85025

== ENCOUNTER 2023-03-30 08:04 | Emergency (ER) | payer MEDICARE, SELFPAY ==
[2023-03-30 08:05] VITALS: BP 173/72; PULSE 69; RESP 15; TEMP 36.1; O2SAT 98
[2023-03-30 08:14] VITALS: BMI 24.0
--- NOTE | 2023-03-30 08:26 | CT_ITS ---
STUDY: CT BRAIN WITHOUT CONTRAST REASON FOR EXAM: Female, 87 years old. Headache after trauma RADIATION DOSAGE (If Supplied By Facility): CTDIvol = ( 44.99 ) mGy, DLP = ( 779.24 ) mGycm TECHNIQUE: Transaxial CT imaging of the brain was performed without administration of intravenous contrast material. Individualized dose optimization techniques were used for this CT. COMPARISON: 06/11/2020 FINDINGS: Normal soft tissue structures. Normal calvarium. Normal size ventricles and extra-axial spaces for the patient''s age. Normal white matter tracts of the cerebral hemispheres. Normal basal ganglia and thalami. Normal brainstem. Normal cerebellum. There is no intracranial hemorrhage. There are no findings of an acute ischemic infarction. Near complete opacification of the right maxillary sinus with calcification suggesting chronic inspissated sinusitis. There is occlusion of the right ostiomeatal complex. Nasal septal deviation to the left CT/Brain/Head without Contrast IMPRESSION: Chronic involutional changes of the brain. 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
--- NOTE | 2023-03-30 08:26 | CT_ITS ---
STUDY: CT CERVICAL SPINE WITHOUT CONTRAST REASON FOR EXAM: Female, 87 years old. Headache and neck pain after trauma RADIATION DOSAGE (If Supplied By Facility): CTDIvol = ( 13.87 ) mGy, DLP = ( 246.72 ) mGycm TECHNIQUE: High resolution transaxial imaging was performed without contrast material. Sagittal and coronal images were reconstructed. Individualized dose optimization techniques were used for this CT. COMPARISON: 06/11/2020 FINDINGS: Normal craniovertebral junction. There are degenerative changes of the anterior atlantoaxial articulation. Normal odontoid process. Normal cervical lordosis. Normal vertebral bodies and posterior osseous elements. C2-3: Normal endplates. Normal disc height and morphology. Normal central canal and intervertebral neuroforamina. There is bilateral facet arthropathy. C3-4: Disc space narrowing with anterior spondylosis and bilateral uncovertebral hypertrophy. Right more than left facet arthropathy causing foraminal stenosis. No significant canal stenosis. C4-5: Disc space narrowing with anterior spondylosis and bilateral uncovertebral hypertrophy. Facet arthropathy contributes to foraminal stenosis. C5-6: Disc space narrowing with anterior spondylosis and posterior disc osteophyte complex contiguous with uncovertebral hypertrophy. There is central canal and bilateral foraminal stenosis. C6-7: Disc space narrowing with anterior spondylosis and posterior disc osteophyte complex. No significant canal stenosis. C7-T1: Normal endplates. Normal disc height and morphology. Normal central canal and intervertebral neuroforamina. Normal visualized soft tissue structures. CT/Spine Cervical without Contras IMPRESSION: Multilevel degenerative changes, no fracture or suspicious osseous lesion. Degenerative changes again most pronounced at C5-6 No significant interval change since the previous study Electronically Signed: Parth Valles MD at 9:34 EDT ,
--- NOTE | 2023-03-30 08:29 | CT_ITS ---
STUDY: CT CHEST, ABDOMEN T PELVIS WITHOUT CONTRAST REASON FOR EXAM: Female, 87 years old. Chest and abdomen pain after trauma RADIATION DOSAGE (If Supplied By Facility): CTDIvol = ( 12.72 ) mGy, DLP = ( 1016.75 ) mGycm TECHNIQUE: Transaxial imaging was performed without the administration of intravenous contrast material. Multiplanar coronal and sagittal images were reformatted. Individualized dose optimization techniques were used for this CT. COMPARISON: No relevant priors. FINDINGS: CHEST Chronic interstitial changes noted in both lung espino with dependent atelectasis. There is no pneumothorax, organized infiltrate or effusion. No pulmonary contusion identified. Normal heart and pericardium. No calcified coronary vessels noted Normal mediastinum. Normal hilar regions. Normal unenhanced pulmonary arteries. Normal aorta arch and descending thoracic aorta. There are multi-level degenerative changes of the thoracic spine. No demonstrated sternal, rib, or thoracic fracture ABDOMEN Normal liver. Normal gallbladder and extrahepatic biliary system. Normal spleen. Normal pancreas. Normal bilateral adrenal glands. 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 Normal small intestine. Retained stool noted throughout the colon. There is non-visualization of the appendix. There is diffuse atherosclerotic calcification of the abdominal aorta, without a demonstrated aneurysm. There is an IVC filter in place. Normal retroperitoneum. Normal abdominal wall. There are diffuse degenerative changes of the visualized lumbar spine, and pelvis. PELVIS Normal urinary bladder. Uterus is present, the endometrium cannot be accurately evaluated with CT. There is no pelvic fluid. There is no pelvic lymphadenopathy or mass lesion. There is diffuse atherosclerotic calcification of the pelvic arteries. CT/CT Chest, Abd, Pelvis WO Cont IMPRESSION: Chronic interstitial changes in both lung espino without a superimposed acute pulmonary process. Specifically, no evidence of pulmonary contusion, infiltrate effusion or pneumothorax No suspicious solid organ injury or abnormality. 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
--- NOTE | 2023-03-30 08:29 | ED.VIS.FALL ---
HPI HPI - Fall History of Present Illness Chief Complaint: Fall Narrative Narrative: 87-year-old female presenting after fall. She states she was on a stepstool on the second step and over reached losing her balance falling straight backwards from about 2-1/2 feet high straight onto her back hitting her head. She states she did not lose consciousness but did feel little bit dazed. She felt nauseous and dizzy after this. She states she laid there for a minute and then she was able to get herself up on her knees and slowly got up to her feet. She states her dizziness is improved now. She is complaining of lower back pain in addition to the dizziness and nausea. Patient is not on any blood thinners. 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 Home Medications levothyroxine 75 mcg tablet 75 mcg PO DAILY thyroid 07/23/13 [History Last Taken 11/13/19] calcium carbonate 500 mg-vitamin D3 10 mcg (400 unit) tablet 1 ea PO DAILY supplement 02/10/14 [History Last Taken Unknown] cholecalciferol (vitamin D3) 250 mcg (10,000 unit) capsule 25 mg PO DAILY supplement 02/10/14 [History Last Taken Unknown] cyanocobalamin (vitamin B-12) 500 mcg tablet 500 mcg PO DAILY@0800 supplement 02/10/14 [History Last Taken Unknown] denosumab 60 mg/mL subcutaneous syringe 60 mg SQ .6MONTHS arthritis 05/29/19 [History Last Taken Unknown] hydroxychloroquine 200 mg tablet 300 mg PO DAILY arthritis 05/29/19 [History Last Taken Unknown] metoprolol succinate 25 mg tablet,extended release 24 hr 25 mg PO DAILY bp/heart 05/29/19 [History Last Taken Unknown] acetaminophen 325 mg tablet 650 mg PO Q6H PRN PRN Pain Score 1-10/Temp > 100.7 F #100 tabs 11/15/19 [Rx Last Taken Unknown] melatonin 10 mg capsule 10 mg PO HS PRN Sleep 07/04/21 [History Last Taken Unknown] folic acid 1 mg tablet 1 mg PO DAILY #30 tabs 05/02/22 [Rx Last Taken Unknown] cephalexin 500 mg capsule 500 mg PO BID #10 caps 07/22/22 [Rx Last Taken Unknown] colestipol 1 gram tablet 1 g PO BID diarrhea #180 tabs 11/14/22 [Rx Last Taken Unknown] Allergy/AdvReac Type Severity Reaction Status Date / Time No Known Allergies Allergy Verified 11/14/22 10:50 Family History Father CVA (cerebral vascular accident) Mother CVA (cerebral vascular accident) Social History Smoking Status: Never smoker alcohol intake: current alcohol intake frequency: a few times a month ROS ROS ED Constitutional Constitutional ED: Denies chills or fever(s) Eyes Eyes: Denies blurry vision or change in vision ENT ENT ED: Denies rhinorrhea Cardiovascular Cardiovascular: Denies chest pain or palpitations Respiratory/Chest Respiratory/Chest: Denies cough or dyspnea Gastrointestinal Gastrointestinal: Reports nausea; Denies abdominal pain Genitourinary Genitourinary ED: Denies dysuria or hematuria Musculoskeletal Musculoskeletal: Reports back pain Integumentary Denies abscess or Abrasions Neurologic Neurologic: Reports headache(s); Denies paresthesias Psychiatric Psychiatric: Denies anxiety or depression EXAM Physical Exam Const Vital Signs: 03/30/23 08:05 03/30/23 08:20 03/30/23 10:10 Temperature 96.9 F L 97.6 F L Temperature Source Temporal Pulse Rate 69 69 Respiratory Rate 15 16 Respiratory Effort Normal Non-Labored Respiratory Depth Normal Respiratory Pattern Normal Blood Pressure 173/72 H 187/78 H Blood Pressure Mean 105 Pulse Ox 98 95 Oxygen Delivery Method Room Air Positive well nourished General Appearance ED: NAD HEENT Reports normocephalic HEENT Narrative: No visible signs of trauma. No hemotympanum. No facial trauma. Abdominal occlusion. Eyes PERRL and EOMs intact bilaterally Chest Wall inspection of chest normal Resp normal respiratory effort and no retractions Cardio regular rate and regular rhythm GI non-tender Back/Spine Back/Spine Narrative: No midline cervical spinal tenderness, deformity, step-off Lumbar Spine / Lower Back: lumbar spinal tenderness L3, L4 and L5 Neuro oriented x3, CN's II-XII intact bilaterally, moves all extremities, no focal motor deficits and no sensory deficits noted Sensorium / Orientation: alert Psych mental status grossly normal and thought process normal MDM MDM MDM Narrative Medical decision making narrative: Patient with fall from 2 and half feet. She fell flat on her back and hit her head. She has back pain in addition to the dizziness after hitting her head. I will obtain a CT brain since she hit her head. She will also receive a CT cervical spine and CT of the chest abdomen pelvis given the severity of the fall. CT brain, cervical spine, CT chest abdomen pelvis are all negative for acute findings. Patient counseled on this. Discharged home with her family. Return precautions discussed. Impression: 1. Mechanical fall 2. Closed head injury 3. Lumbar contusion Radiography Diagnostic Testing: Clinical Impression(s) from Imaging Studies Brain CT 03/30/23 08:26 IMPRESSION: Chronic involutional changes of the brain. 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 Degenerative changes again most pronounced at C5-6 No significant interval change since the previous study Electronically Signed: Parth Valles MD at 9:34 EDT , Chest/Abdomen/Pelvis CT 03/30/23 08:29 IMPRESSION: Chronic interstitial changes in both lung espino without a superimposed acute pulmonary process. Specifically, no evidence of pulmonary contusion, infiltrate effusion or pneumothorax No suspicious solid organ injury or abnormality. 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 Degenerative bony changes without evidence of vertebral body rib or sternal fracture No free intraperitoneal fluid, air, or suspicious adenopathy Uterus is present, the endometrium cannot be accurately evaluated with CT Electronically Signed: Parth Valles MD at 9:45 EDT , Discharge Plan Triage Chief Complaint: Fall ED Provider: Jeremy Sorto Dx/Rx/DC Orders Instructions: ED Back Contusion, ED Head Injury (Adult), ED Fall Prevention Prescriptions: No Action melatonin 10 mg capsule 10 mg PO HS PRN (Reason: Sleep) folic acid 1 mg tablet 1 mg PO DAILY Qty: 30 0RF colestipol 1 gram tablet 1 g PO BID Qty: 180 3RF cephalexin 500 mg capsule 500 mg PO BID Qty: 10 0RF levothyroxine 75 MCG tablet 75 mcg PO DAILY Label Comments: thyroid cyanocobalamin (vitamin B-12) 500 MCG tablet 500 mcg PO DAILY@0800 Label Comments: supplement cholecalciferol (vitamin D3) 10,000 UNIT capsule 25 mg PO DAILY Label Comments: supplement calcium carbonate-vitamin D3 1 EACH tablet 1 ea PO DAILY Label Comments: supplement metoprolol succinate 25 MG tablet 25 mg PO DAILY hydroxychloroquine 200 MG tablet 300 mg PO DAILY denosumab 60 MG/ML syringe 60 mg SQ .6MONTHS Rx Instructions: LAST DOSE 09/2019 acetaminophen 325 MG tablet 650 mg PO Q6H PRN PRN (Reason: Pain Score 1-10/Temp > 100.7 F) Qty: 100 0RF Primary Care Provider: Sagar Horton Chi Referrals: Sagar Horton Chi, MD [Primary Care Provider] - Disposition Disposition: Home, Self Care Discharge Date/Time: 03/30/23 10:19
[2023-03-30] MEDS: Acetaminophen 500 MG Tablet 1000 MG PO (08:44)
[2023-03-30] MEDS: Lidocaine 5% Patch 1 PATCH TOPICAL (08:44)
[2023-03-30 10:10] VITALS: BP 187/78; PULSE 69; RESP 16; TEMP 36.4; O2SAT 95
== END 2023-03-30 10:19 | disposition home or self-care (01) ==
PROVIDERS: Emergency Provider Student in an Organized Health Care Education/Training Program; PCP Family Medicine Geriatric Medicine; Visit Provider Student in an Organized Health Care Education/Training Program
DX: S09.90XA Unspecified injury of head, initial encounter (principal); S30.0XXA Contusion of lower back and pelvis, initial encounter; Z86.718 Personal history of other venous thrombosis and embolism; Z86.711 Personal history of pulmonary embolism; W08.XXXA Fall from other furniture, initial encounter
CPT/HCPCS: 70450; 71250; 72125; 74176; 99284; A4216

== ENCOUNTER → 2023-04-09 | Outpatient (CLI) | payer MEDICARE, SELFPAY ==
--- NOTE | 2023-04-09 11:50 | RAD_ITS ---
STUDY: X-RAY - LUMBAR SPINE REASON FOR EXAM: Female, 87 years old. Low back pain. TECHNIQUE: 5 view(s) of the lumbar spine were obtained. COMPARISON: None FINDINGS: Marked osteopenia. Normal lumbar lordosis. Minimal rotatory levoscoliosis. 2 mm of anterolisthesis of L5 on S1. Anterior wedge compression deformity of the L1 vertebral body, age undetermined. Diffuse lower thoracic and lumbosacral facet sclerosis. Diffuse mild intervertebral disc space narrowing most marked at L5-S1. IVC filter and vascular calcifications. RAD/L/S Spine Min 4 Views IMPRESSION: Osteopenia with anterior wedge compression deformity of L1, age undetermined, diffuse mild lower thoracic and lumbosacral spondylosis most marked at L5-S1 and vascular calcification. Electronically Signed: Cuauhtemoc Constantino MD at 14:28 EDT ,
--- NOTE | 2023-04-09 11:50 | RAD_ITS ---
INDICATION: LOW BACK PAIN EXAMINATION/TECHNIQUE: X-RAY - XR Spine Thoracic 3 Views COMPARISON: CT chest abdomen and pelvis 03/30/2023. On Thoracic spine x-rays 08/04/2019. Chest x-ray 11/13/2019 FINDINGS: Osteopenic. Vertebral bodies are normal height. No definite fracture demonstrated in the thoracic spine. L1 moderate compression fracture approximately 50% vertebral body height loss likely subacute. This is similar to the recent CT chest abdomen and pelvis from 03/30/2023, but was not present on prior thoracic spine x-rays or CT chest. Disc space narrowing and osteophytes throughout all levels. No paravertebral soft tissue mass identified. Thoracic aorta is tortuous and atherosclerotic. IVC filter noted tip at the level of L1-2. RAD/Thoracic Spine 3 Views IMPRESSION: Subacute L1 compression fracture. CT lumbar spine may be helpful for further evaluation. No evidence of fracture or subluxation in the thoracic spine. Lumbar spine x-rays reported separately. Electronically Signed: Vanda Stallings MD at 22:46 EDT ,
== END | disposition home or self-care (01) ==
LOC: RAD 11:49
PROVIDERS: PCP Family Medicine Geriatric Medicine; Referring Provider Family Medicine Geriatric Medicine; Visit Provider Family Medicine Geriatric Medicine
DX: M54.50 Low back pain, unspecified (principal)
CPT/HCPCS: 72072; 72110

== ENCOUNTER → 2023-06-20 | Outpatient (CLI) | payer MEDICARE, SELFPAY ==
[2023-06-20 15:30] LABS: Absolute Lymphocyte Count 2.21 X10^3/uL (0.83-4.51); Absolute Neutrophil Count 4.4 X10^3/uL (2.0-7.7); Basophil# 0.06 X10^3/uL; Basophil% 0.8 % (0-1); Eosinophil# 0.14 X10^3/uL; Eosinophils% 1.9 % (0-5); Hematocrit 43.5 % (37-47); Hemoglobin 13.8 g/dL (12.0-15.0); Lymphocyte # 2.21 X10^3/ul (0.83-4.51); Mean Corp Hgb Conc 31.7 g/dL (32-36); Mean Corpuscular Hgb 31.4 pg (27.0-32.0); Mean Corpuscular Volume 98.9 fL (81-99); Mean Platelet Vol. 11.6 fl (6.2-12.0); Monocyte# 0.49 X10^3/uL; Monocyte% 6.7 % (0-10); NRBC Flagged by Analyzer 0 % (0-5); Neutrophil # 4.43 X10^3/uL (2.7-7.7); Neutrophil % 60.2 % (47-70); Platelet Count 214 K/mm3 (150-450); RBC Distribution Width CV 14.7 % (11.6-14.6); RBC Distribution Width SD 54.3 fl (35.1-43.9); White Blood Count 7.4 K/mm3 (4.4-11.0)
[2023-06-20 16:07] LABS: ALB/GLOB Ratio 1.3 RATIO (0.9-2.4); AST(SGOT) 25 U/L (15-37); Alanine Aminotransfer ALT/SGPT 29 U/L (13-56); Albumin, Serum 3.7 g/dL (3.2-5.0); Alkaline Phosphatase 83 U/L (45-117); Anion Gap 5 (5-15); BUN 20 mg/dL (7-18); BUN/Creat Ratio 19.2 RATIO (10-20); Calcium,Total 9.1 mg/dL (8.5-10.1); Chloride 109 mmol/L (98-107); Creatinine, Serum 1.04 mg/dL (0.55-1.02); EST Glomerular Filtration Rate 53 mL/min (>60); Est Glom Filt Rate - Afr Amer 64 mL/min (>60); Globulin 2.9 g/dL (2.2-4.2); Glucose 94 mg/dL (74-106); Potassium 4.1 mmol/L (3.5-5.1); Protein, Total 6.6 g/dL (6.4-8.2); Sodium Level 143 mmol/L (136-145)
== END | disposition home or self-care (01) ==
LOC: MTLAB 13:38
PROVIDERS: PCP Family Medicine Geriatric Medicine; Referring Provider Internal Medicine Rheumatology; Visit Provider Internal Medicine Rheumatology
DX: M06.00 Rheumatoid arthritis without rheumatoid factor, unspecified site (principal); M25.551 Pain in right hip; M47.897 Other spondylosis, lumbosacral region; M81.0 Age-related osteoporosis without current pathological fracture; M18.0 Bilateral primary osteoarthritis of first carpometacarpal joints; Q66.70 Congenital pes cavus, unspecified foot; I10 Essential (primary) hypertension; E03.9 Hypothyroidism, unspecified; E78.5 Hyperlipidemia, unspecified; Z79.899 Other long term (current) drug therapy
CPT/HCPCS: 36415; 80053; 85025

== ENCOUNTER → 2023-07-21 | Outpatient (CLI) | payer MEDICARE, SELFPAY ==
[2023-07-21 18:26] LABS: M R Staph aureus DNA By PCR Negative (Negative); Probe Check PASS; Specimen Processing Control PASS; Staph aureus DNA By PCR NEGATIVE (Negative)
== END | disposition home or self-care (01) ==
LOC: LABSPEC 15:54
PROVIDERS: PCP Family Medicine Geriatric Medicine; Visit Provider Family Medicine Geriatric Medicine
DX: L03.116 Cellulitis of left lower limb (principal)
CPT/HCPCS: 87070; 87101; 87205; 87640

== ENCOUNTER → 2023-07-28 | Outpatient (CLI) | payer MEDICARE, SELFPAY ==
[2023-07-28 14:23] LABS: M R Staph aureus DNA By PCR Negative (Negative); Probe Check PASS; Specimen Processing Control PASS
[2023-07-28 14:25] LABS: Staph aureus DNA By PCR NEGATIVE (Negative)
== END | disposition home or self-care (01) ==
LOC: LABSPEC 11:00
PROVIDERS: PCP Family Medicine Geriatric Medicine; Visit Provider Family Medicine Geriatric Medicine
DX: L03.116 Cellulitis of left lower limb (principal)
CPT/HCPCS: 87070; 87205; 87640

== ENCOUNTER 2023-08-05 08:51 | Outpatient (RCR) | payer MEDICARE, SELFPAY ==
[2023-08-05 09:01] VITALS: BP 172/87; PULSE 83; RESP 16; TEMP 36.3; BMI 22.8
--- NOTE | 2023-08-05 12:09 | PCM.WC.HP ---
History of Present Illness Date of Service: 08/05/23 Chief Complaint: Laceration of the left distal lower extremity with associated cellulitis History of Wound: This is an 87-year-old female who is active and functional. She presents with a chronic, non-healing wound on the left pretibial surface, the result of a traumatic injury approximately 3 weeks prior to presentation. 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 This resulted in a laceration. She was initially seen in an urgent care facility, and a day later by her primary care physician. She developed a cellulitis, and has been treated with 2 courses of oral antibiotics, both Keflex and doxycycline. Wound cultures were obtained, which were negative. She has been using an antibiotic ointment topically. The patient is of normal body habitus. She is active. She sleeps on a flat mattress at night. She denies a history of thromboembolic disease. Recent laboratory studies were done on June 20, 2023, with results as follows: White blood count 7.4, hemoglobin 3.8, hematocrit 43.5, platelets 214,000, sodium 143, potassium 4.1, chloride 109, BUN 20, creatinine 1.04, glucose 94, calcium 9.1, total bilirubin 0.50, ALT 29, alkaline phosphatase 83, total protein 6.6, serum albumin 3.7. 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 Home Medications levothyroxine 75 mcg tablet 75 mcg PO DAILY thyroid 07/23/13 [History Last Taken 11/13/19] calcium carbonate 500 mg-vitamin D3 10 mcg (400 unit) tablet 1 ea PO DAILY supplement 02/10/14 [History Last Taken Unknown] cyanocobalamin (vitamin B-12) 500 mcg tablet 500 mcg PO DAILY@0800 supplement 02/10/14 [History Last Taken Unknown] hydroxychloroquine 200 mg tablet 300 mg PO DAILY arthritis 05/29/19 [History Last Taken Unknown] metoprolol succinate 25 mg tablet,extended release 24 hr 25 mg PO DAILY bp/heart 05/29/19 [History Last Taken Unknown] acetaminophen 325 mg tablet 650 mg (2 x 325 mg) PO Q6H PRN PRN Pain Score 1-10/Temp > 100.7 F #100 tabs 11/15/19 [Rx Last Taken Unknown] colestipol 1 gram tablet 1 g PO BID diarrhea #180 tabs 11/14/22 [Rx Last Taken Unknown] PRAMIPEXOLE DIHYDROCHLORIDE 0.125 mg PO QHS PRN INSOMNIA 08/05/23 [History Last Taken Unknown] Allergy/AdvReac Type Severity Reaction Status Date / Time No Known Allergies Allergy Verified 08/05/23 09:21 Family History Father CVA (cerebral vascular accident) Mother CVA (cerebral vascular accident) Surgical History History of breast biopsy History of carpal tunnel release History of right knee surgery History of total left knee replacement no surgical history Social History Smoking Status: Never smoker alcohol intake: current alcohol intake frequency: a few times a month Vital Signs Vital Signs Vital Signs: 08/05/23 09:01 Temperature 97.3 F L Temperature Source Temporal Pulse Rate 83 Respiratory Rate 16 Blood Pressure 172/87 H Blood Pressure Mean 115 Blood Pressure Source Monitor Blood Pressure Position Sitting Blood Pressure Location Right Arm Oxygen Delivery Method Room Air Weight Weight: 125 lb Body Mass Index (BMI) 22.8 Physical Exam Const alert, oriented x3, no apparent distress, average body habitus, no limitations, healthy appearing and well nourished General Appearance: cooperative, comfortable, well kempt and well developed Orientation / Consciousness: awake, oriented to person, oriented to place and oriented to time HEENT normocephalic, head/scalp atraumatic and hearing grossly normal bilaterally Head and Scalp: normal to inspection, normocephalic and atraumatic External Ear: external ears normal Eyes PERRL and EOMs intact bilaterally General Eye: normal appearance of both eyes Neck full ROM Resp normal respiratory effort, normal air movement, no retractions and no use of accessory muscles Effort and Inspection: able to speak in complete sentences and symmetric chest movement Extremity no calf tenderness General Extremity: Negative for clubbing or cyanosis Skin Wound Narrative: No significant swelling or edema are noted in the patient's lower extremities bilaterally. Numerous varicosities are noted in the lower extremities diffusely. Mild hemosiderin staining is noted in the gaiter areas bilaterally. Wound is noted on the left pretibial surface. Dimensions are documented elsewhere. There is a moderate amount of bioburden and nonviable tissue. There is no sign of infection or cellulitis. Neuro oriented x3, CN's II-XII intact bilaterally and moves all extremities Sensorium / Orientation: awake, alert, oriented to person, oriented to place and oriented to time Psych Appearance: grossly normal and appropriate Attitude: calm Activity / Motor Behavior: appropriate eye contact Speech: normal speech Mood & Affect: euthymic mood Thought Process: normal thought process Thought Content: normal thought content Attention / Concentration: attention grossly intact Debridement Note Debridement Note Wound debrided: Left pretibial traumatic wound Laterality: Left Type of Debridement: Excisional debridement Anesthesia Used: 5% Lidocaine Gel and Cetacaine Depth: Down to and including healthy tissue and in the subcutaneous layer Percentage of wound debrided: 100 Instrument Used: 5mm curette Tissue Removed: Bioburden and nonviable/necrotic tissue Severity: Fat Layer Exposed Amount of bleeding with debridement: Mild Bleeding Controlled with: Compression and gauze Patient tolerated procedure: Patient tolerated procedure well Post-Debridement Measurements and Additional Note: Post-Debridement Measurements/Treatment - Nurse 1 - General Ulcer Assessment Start: 08/05/23 09:00 Freq: Status: Active Protocol: LEDY.LOWHIREN Activity Type Activity Date Activity User E-sign Co-sign Detail Recorded Client Recorded Date Recorded By Document 08/05/23 09:[address] [facility] Desktop 08/05/23 09:[address] [facility] 08/05/23 09:01 - Today's Visit Information Type of service Initial Visit Arrival Mode Ambulatory Transfer Assistance None Patient Identification Verified (Name & Yes ) Height and Weight Height 5 ft 2 in Weight 125 lb Weight in Pounds 125.0 lbs Weight Measurement Method Stated by Patient Body Mass Index (BMI) 22.8 BMI Classification Normal BSA - Ivet 1.57 Vital Signs Temperature (97.8 F-99.1 F) 97.3 F L Temperature Source Temporal Pulse Rate (60-100) 83 Pulse Location Monitor Respiratory Rate (12-18) 16 Respiratory rate source Observation Oxygen Delivery Method Room Air Blood Pressure (90/60-120/80) 172/87 H Blood Pressure Mean 115 Source Monitor Position Sitting Blood Pressure Location Right Arm History Since Last Visit- (Skip if this is Patient's initial visit) Left Footwear Regular Shoe Right Footwear Regular Shoe Pain Scale: 0-10 Numeric Is Patient Pain Free? Yes Lower Extremity Assessment/ Foot Assessment/ Toe Nail Assessment Right -Posterior Tibial Palpable No -Posterior Tibial Doppler Monophasic -Dorsalis Pedis Palpable No -Dorsalis Pedis Doppler Monophasic -Extremity Color Hyperpigmented -Hair Growth on Legs No -Hair Growth on Toes No -Temperature of Extremity Cool -Other Deformity No -Prior Foot Ulcer No -Charcot Joint No -Prior Amputation No -Thick No -Discolored No -Deformed No -Improper Length & Hygeine No Left -Posterior Tibial Palpable No -Posterior Tibial Doppler Monophasic -Dorsalis Pedis Palpable No -Dorsalis Pedis Doppler Monophasic -Extremity Color Pale, Hyperpigmented -Hair Growth on Legs No -Hair Growth on Toes No -Temperature of Extremity Cool -Other Deformity No -Prior Foot Ulcer No -Charcot Joint No -Prior Amputation No -Thick No -Discolored No -Deformed No -Improper Length & Hygeine No Neuropathy Assessment Feet - Top Side and Bottom <Entered> (a) Communication Assessment Preferred language American 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 No Able to Read Yes Able to Write Yes Communication Tools None Right Hearing Abillity Normal Left Hearing Abillity Normal Visual Assistive Devices Glasses Teaching Assessment Preferences Verbal,Written, Audio/Visual, Demonstration Barriers to Learning None Readiness To Learn Excellent Willingness to Engage in Self Management High Activies Readiness to Engage in Self Management High Activities Anxiety Level Calm Cooperation Cooperative Perception Coherent Interest in Health Problem Asks Questions Education Importance Acknowledges Need Does Patient Smoke tobacco or other No substances Smoking Status Never smoker Is Patient Diabetic No Functional Assessment Recent Decline in Ability to Perform Denies Any Declines 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 Desktop 08/05/23 09:[address] [facility] 08/05/23 09:01 Wound Center Nurse 1 #2- L SAL (TRAUMA) -Combined with other wound No -Current Size (cm) - Length 1 -Current Size (cm) - Width 0.1 -Current Size (cm) - Depth 0.1 -Total Square Cm 0.1 -Date of Last Picture (Recall this 08/05/23 field) -Photo Taken Yes -Epithelialization None Present -Tunneling No -Undermining/Tunneling No -Circular Undermining No -Exudate Amt Medium -Exudate Type Serosanguineous -Wound Margin Distinct, Outline Attached -Granulation Amt Small (1-33%) -Granulation Quality Red -Slough/Fibrin Yes -Necrosis Amt Large (67-100%) -Necrotic Tissue Type Adherent Slough -Texture (Jennifer-wound Skin Appearance) Assessed, Scarring -Moisture (Jennifer-wound Skin Appearance) Assessed,Dry/ Scaly -Color (Jennifer-wound Skin Appearance) Assessed, Hemosiderin Staining -Temperature (Jennifer-wound Skin No Abnormality Appearance) (Pt Warm) -Tenderness on Palpation (Jennifer-wound No Skin Appearance) -Ulcer Cleansing Soap and Water -Foul Odor after Cleansing No -Anesthetic Used 5% Lidocaine Gel Right Calf (cm) 31.7 Right Ankle (cm) 17 Left Calf (cm) 29.2 Left Ankle (cm) 17.5 WC - Nurse 3 - General Ulcer D/C NN Start: 08/05/23 09:00 Freq: Status: Active Protocol: Activity Type Activity Date Activity User E-sign Co-sign Detail Recorded Client Recorded Date Recorded By Document 08/05/23 09:[address] [facility] [employer] 08/05/23 09:[address] [facility] 08/05/23 09:51 Wound Care Center Nurse 3 #2- L SAL (TRAUMA) -Ulcer Cleansing Rinsed/ Irrigated with Saline -Foul Odor after Cleansing No -Primary Dressing Applied C Hydrogel ($), Mepilex Border -Mepilex Border 3 Treatment Response Procedure Tolerated Well Pain Scale: 0-10 Numeric Is Patient Pain Free? Yes WC - Visit Discharge Discharge Condition Stable Ambulatory Status Ambulatory Transportation Private Auto Assessment/Plan Assessment/Plan (1) Laceration of left lower leg with complication: CODE(S): S81.812A - Laceration without foreign body, left lower leg, initial encounter QUALIFIERS: Encounter type: initial encounter Qualified Code(s): S81.812A - Laceration without foreign body, left lower leg, initial encounter (2) Cellulitis of left lower limb: CODE(S): L03.116 - Cellulitis of left lower limb (3) Varicose veins of both lower extremities with inflammation: CODE(S): I83.11 - Varicose veins of right lower extremity with inflammation; I83.12 - Varicose veins of left lower extremity with inflammation (4) Chronic venous insufficiency: CODE(S): I87.2 - Venous insufficiency (chronic) (peripheral) (5) Arthritis: CODE(S): M19.90 - Unspecified osteoarthritis, unspecified site (6) History of TIA (transient ischemic attack): CODE(S): Z86.73 - Personal history of transient ischemic attack (TIA), and cerebral infarction without residual deficits (7) Osteoporosis: CODE(S): M81.0 - Age-related osteoporosis without current pathological fracture (8) Hypertension: CODE(S): I10 - Essential (primary) hypertension QUALIFIERS: Hypertension type: essential hypertension Qualified Code(s): I10 - Essential (primary) hypertension (9) GERD (gastroesophageal reflux disease): CODE(S): K21.9 - Gastro-esophageal reflux disease without esophagitis QUALIFIERS: Esophagitis presence: esophagitis presence not specified Qualified Code(s): K21.9 - Gastro-esophageal reflux disease without esophagitis (10) Hypothyroid: CODE(S): E03.9 - Hypothyroidism, unspecified QUALIFIERS: Hypothyroidism type: unspecified Qualified Code(s): E03.9 - Hypothyroidism, unspecified (11) History of left knee replacement: CODE(S): Z96.652 - Presence of left artificial knee joint (12) Hyperlipidemia: CODE(S): E78.5 - Hyperlipidemia, unspecified (13) History of carpal tunnel release: CODE(S): Z98.890 - Other specified postprocedural states (14) History of right knee surgery: CODE(S): Z98.890 - Other specified postprocedural states (15) History of breast biopsy: CODE(S): Z98.890 - Other specified postprocedural states (16) History of total left knee replacement: CODE(S): Z96.652 - Presence of left artificial knee joint PLAN: Plan This is an 87-year-old female who is active and functional. She presented with a chronic nonhealing wound to the left pretibial surface, the result of trauma approximately 3 weeks prior to her presentation. Cellulitis had developed, and appears to have resolved as a result of 2 courses of oral antibiotics. The patient has been encouraged to optimize her nutritional intake. Review of the patient's recent laboratory results reveals no significant abnormalities, with total protein and albumin to be relatively normal. We are to implement the use of collagen hydrogel topically, which will be applied by the patient on a daily basis. She has been instructed in the appropriate means of application. She is to remain active, and elevate her lower extremities while sedentary. The patient is to return in 1 week for reevaluation. Total time: 45 minutes
== END 2023-08-05 23:59 | disposition home or self-care (01) ==
LOC: WC 08:51
PROVIDERS: PCP Family Medicine Geriatric Medicine; Referring Provider Family Medicine Geriatric Medicine; Visit Provider Surgery
DX: L03.116 Cellulitis of left lower limb (principal); S81.812A Laceration without foreign body, left lower leg, initial encounter; I87.2 Venous insufficiency (chronic) (peripheral); E03.9 Hypothyroidism, unspecified; I10 Essential (primary) hypertension; E78.5 Hyperlipidemia, unspecified; I83.11 Varicose veins of right lower extremity with inflammation; I83.12 Varicose veins of left lower extremity with inflammation; Z79.899 Other long term (current) drug therapy; Z79.890 Hormone replacement therapy
CPT/HCPCS: 11042; 99213; G0463

== ENCOUNTER → 2023-08-13 | Outpatient (CLI) | payer MEDICARE, SELFPAY ==
[2023-08-13 12:14] LABS: Absolute Lymphocyte Count 3.46 X10^3/uL (0.83-4.51); Absolute Neutrophil Count 6.2 X10^3/uL (2.0-7.7); Basophil% 0.9 % (0-1); Eosinophil# 0.28 X10^3/uL; Eosinophils% 2.5 % (0-5); Hematocrit 42.8 % (37-47); Hemoglobin 13.5 g/dL (12.0-15.0); Lymphocyte # 3.46 X10^3/ul (0.83-4.51); Lymphocyte % 30.5 % (19-41); Mean Corp Hgb Conc 31.5 g/dL (32-36); Mean Corpuscular Hgb 30.8 pg (27.0-32.0); Mean Corpuscular Volume 97.5 fL (81-99); Mean Platelet Vol. 11.4 fl (6.2-12.0); Monocyte# 1.16 X10^3/uL; Monocyte% 10.2 % (0-10); NRBC Flagged by Analyzer 0 % (0-5); Neutrophil # 6.19 X10^3/uL (2.7-7.7); Neutrophil % 54.6 % (47-70); Platelet Count 250 K/mm3 (150-450); RBC Distribution Width SD 46.3 fl (35.1-43.9); Red Blood Count 4.39 M/mm3 (4.2-5.4); White Blood Count 11.3 K/mm3 (4.4-11.0)
[2023-08-13 12:19] LABS: Vitamin D,25 Hydroxy 40.2 ng/mL
[2023-08-13 12:24] LABS: AST(SGOT) 14 U/L (15-37); Alanine Aminotransfer ALT/SGPT 27 U/L (13-56); Albumin, Serum 3.2 g/dL (3.2-5.0); Alkaline Phosphatase 82 U/L (45-117); Anion Gap 6 (5-15); BUN 22 mg/dL (7-18); BUN/Creat Ratio 22.6 RATIO (10-20); Chloride 105 mmol/L (98-107); Creatinine, Serum 0.97 mg/dL (0.55-1.02); EST Glomerular Filtration Rate 57 mL/min (>60); Est Glom Filt Rate - Afr Amer 69 mL/min (>60); Globulin 3.1 g/dL (2.2-4.2); Glucose 81 mg/dL (74-106); Potassium 4.4 mmol/L (3.5-5.1); Protein, Total 6.3 g/dL (6.4-8.2); Sodium Level 138 mmol/L (136-145); Thyroid Stim Hormone (TSH) 1.97 uIU/mL (0.358-3.74)
== END | disposition home or self-care (01) ==
LOC: POLAB3 10:29
PROVIDERS: PCP Family Medicine Geriatric Medicine; Visit Provider Family Medicine Geriatric Medicine
DX: I10 Essential (primary) hypertension (principal); E55.9 Vitamin D deficiency, unspecified
CPT/HCPCS: 36415; 80053; 82306; 84443; 85025

== ENCOUNTER 2023-08-26 11:00 | Outpatient (RCR) | payer MEDICARE, SELFPAY ==
[2023-08-06 00:27] VITALS: BP 172/87; PULSE 83; RESP 16; TEMP 36.3; BMI 22.8
[2023-08-12 11:43] VITALS: BP 132/77; PULSE 72; RESP 18; TEMP 36.1; BMI 22.8
--- NOTE | 2023-08-12 14:24 | HP.PCM_ITS ---
History of Present Illness Date of Service: 08/12/23 Chief Complaint: Laceration of the left distal lower extremity with associated cellulitis History of Wound: This is an 87-year-old female who is active and functional. She presents with a chronic, non-healing wound on the left pretibial surface, the result of a traumatic injury approximately 3 weeks prior to presentation. 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 This resulted in a laceration. She was initially seen in an urgent care facility, and a day later by her primary care physician. She developed a cellulitis, and has been treated with 2 courses of oral antibiotics, both Keflex and doxycycline. Wound cultures were obtained, which were negative. She has been using an antibiotic ointment topically. The patient is of normal body habitus. She is active. She sleeps on a flat mattress at night. She denies a history of thromboembolic disease. Recent laboratory studies were done on June 20, 2023, with results as follows: White blood count 7.4, hemoglobin 3.8, hematocrit 43.5, platelets 214,000, sodium 143, potassium 4.1, chloride 109, BUN 20, creatinine 1.04, glucose 94, calcium 9.1, total bilirubin 0.50, ALT 29, alkaline phosphatase 83, total protein 6.6, serum albumin 3.7. 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 Home Medications levothyroxine 75 mcg tablet 75 mcg PO DAILY thyroid 07/23/13 [History Last Taken 11/13/19] calcium carbonate 500 mg-vitamin D3 10 mcg (400 unit) tablet 1 ea PO DAILY s upplement 02/10/14 [History Last Taken Unknown] cyanocobalamin (vitamin B-12) 500 mcg tablet 500 mcg PO DAILY@0800 supplement 02/10/14 [History Last Taken Unknown] hydroxychloroquine 200 mg tablet 300 mg PO DAILY arthritis 05/29/19 [History Last Taken Unknown] metoprolol succinate 25 mg tablet,extended release 24 hr 25 mg PO DAILY bp/heart 05/29/19 [History Last Taken Unknown] acetaminophen 325 mg tablet 650 mg (2 x 325 mg) PO Q6H PRN PRN Pain Score 1- 10/Temp > 100.7 F #100 tabs 11/15/19 [Rx Last Taken Unknown] colestipol 1 gram tablet 1 g PO BID diarrhea #180 tabs 11/14/22 [Rx Last Taken Unknown] PRAMIPEXOLE DIHYDROCHLORIDE 0.125 mg PO QHS PRN INSOMNIA 08/05/23 [History Last Taken Unknown] Allergy/AdvReac Type Severity Reaction Status Date / Time No Known Allergies Allergy Verified 08/05/23 09:21 Family History Father CVA (cerebral vascular accident) Mother CVA (cerebral vascular accident) Surgical History History of breast biopsy History of carpal tunnel release History of right knee surgery History of total left knee replacement Surgical History no surgical history Social History Smoking Status: Never smoker alcohol intake: current alcohol intake frequency: a few times a month Vital Signs Vital Signs Vital Signs: 08/12/23 11:43 Temperature 97 F L Temperature Source Temporal Pulse Rate 72 Respiratory Rate 18 Blood Pressure 132/77 H Blood Pressure Mean 95 Blood Pressure Source Monitor Blood Pressure Position Semi-Fowlers Blood Pressure Location Left Arm Weight Weight: 125 lb Body Mass Index (BMI) 22.8 Physical Exam Const alert, oriented x3, no apparent distress, average body habitus, no limitations, healthy appearing and well nourished General Appearance: cooperative, comfortable, well kempt and well developed Orientation / Consciousness: awake, oriented to person, oriented to place and oriented to time HEENT normocephalic, head/scalp atraumatic and hearing grossly normal bilaterally Head and Scalp: normal to inspection, normocephalic and atraumatic External Ear: external ears normal Eyes PERRL and EOMs intact bilaterally General Eye: normal appearance of both eyes Neck full ROM Resp normal respiratory effort, normal air movement, no retractions and no use of accessory muscles Effort and Inspection: able to speak in complete sentences and symmetric chest movement Extremity no calf tenderness General Extremity: Negative for clubbing or cyanosis Skin Wound Narrative: No significant swelling or edema are noted in the patient's lower extremities bilaterally. Numerous varicosities are noted in the lower extremities diffusely. Mild hemosiderin staining is noted in the gaiter areas bilaterally. A wound is noted on the left pretibial surface, which appears slightly smaller in size. Dimensions are documented elsewhere. There is a moderate amount of bioburden. There is no sign of infection or cellulitis. Neuro oriented x3, CN's II-XII intact bilaterally, moves all extremities and no focal motor deficits Sensorium / Orientation: awake, alert, oriented to person, oriented to place and oriented to time Psych Appearance: grossly normal and appropriate Attitude: calm Activity / Motor Behavior: appropriate eye contact Speech: normal speech Mood & Affect: euthymic mood Thought Process: normal thought process Thought Content: normal thought content Attention / Concentration: attention grossly intact Debridement Note Debridement Note Wound debrided: Left pretibial traumatic wound Laterality: Left Type of Debridement: Excisional debridement Anesthesia Used: 5% Lidocaine Gel and Cetacaine Depth: Down to and including healthy tissue and in the subcutaneous layer Percentage of wound debrided: 100 Instrument Used: 5mm curette Tissue Removed: Bioburden and nonviable/necrotic tissue Severity: Fat Layer Exposed Amount of bleeding with debridement: Mild Bleeding Controlled with: Compression and gauze Patient tolerated procedure: Patient tolerated procedure well Post-Debridement Measurements and Additional Note: Post-Debridement Measurements/Treatment - Nurse 1 - General Ulcer Assessment Start: 08/12/23 11:43 Freq: Status: Active Protocol: [email or web address] Activity Type Activity Date Activity User E-sign Co-sign Detail Recorded Client Recorded Date Recorded By Document 08/12/23 11:43 Desktop 08/12/23 11:47 RB 08/12/23 11:43 - Today's Visit Information Type of service Follow-up Visit (Physician/[employer]AL[employer] COORDINATOR ) Arrival Mode Ambulatory Transfer Assistance None Patient Identification Verified (Name & Yes ) Patient Requires Transmission-Based No Precautions Height and Weight Body Mass Index (BMI) 22.8 BMI Classification Normal Vital Signs Temperature (97.8 F-99.1 F) 97 F L Temperature Source Temporal Pulse Rate (60-100) 72 Pulse Location Monitor Respiratory Rate (12-18) 18 Respiratory rate source Observation Blood Pressure (90/60-120/80) 132/77 H Blood Pressure Mean 95 Source Monitor Position Semi-Fowlers Blood Pressure Location Left Arm History Since Last Visit- (Skip if this is Patient's initial visit) Have you changed medications since your No last visit? Any new allergies or adverse reactions No Had a fall/change in ADL's that may No increase risk of falls Signs or symptoms of abuse and/or No neglect since last visit Have you been in the hospital since your No last visit? Has dressing in place as prescribed Yes Has compression in place as prescribed No Has offloadiing in place as prescribed No Experienced any changes in pain level or No management Pain Scale: 0-10 Numeric Is Patient Pain Free? Yes WC - Nurse 1 - General Ulcer Measurement Start: 08/12/23 11:43 Freq: Status: Active Protocol: Activity Type Activity Date Activity User E-sign Co-sign Detail Recorded Client Recorded Date Recorded By Document 08/12/23 11:43 RB Desktop 08/12/23 11:47 RB 08/12/23 11:43 Wound Center Nurse 1 #2- L SAL (TRAUMA) -Combined with other wound No -Current Size (cm) - Length 2.7 -Current Size (cm) - Width 1.8 -Current Size (cm) - Depth 0.2 -Total Square Cm 4.86 -Tunneling No -Undermining/Tunneling No -Circular Undermining No -Exudate Amt Medium -Exudate Type Serosanguineous -Wound Margin Distinct, Outline Attached -Granulation Amt Medium (34-66%) -Granulation Quality [place] -Slough/Fibrin Yes -Necrosis Amt Medium (34-66%) -Necrotic Tissue Type Adherent Slough -Structure Exposed N/A -Texture (Jennifer-wound Skin Appearance) Assessed, Scarring -Moisture (Jennifer-wound Skin Appearance) Assessed -Color (Jennifer-wound Skin Appearance) Assessed -Temperature (Jennifer-wound Skin No Abnormality Appearance) (Pt Warm) -Tenderness on Palpation (Jennifer-wound No Skin Appearance) -Ulcer Cleansing Wound Cleanser -Foul Odor after Cleansing No -Anesthetic Used 4% Lidocaine Solution Lower Limb Edema Present No WC - Nurse 2 - General Ulcer CM Notes Start: 08/12/23 11:43 Freq: Status: Active Protocol: Activity Type Activity Date Activity User E-sign Co-sign Detail Recorded Client Recorded Date Recorded By Document 08/12/23 13:52 PL [id number] 08/12/23 13:53 PL 08/12/23 13:52 Wound Center Nurse 2 #2- Umm SAL (TRAUMA) -Time 12:00 -Correct Patient Yes -Correct Side, Site, Position Yes -Correct Procedure Yes -Procedure Performed Yes -Type of Procedure Debridement -Clinical Debridement Subcutaneous -Tissue Removed Subcutaneous -Post Debridement (cm) - Length 2.7 -Post Debridement (cm) - Width 1.8 -Post Debridement (cm) - Depth 0.2 -Total Square (Post) (cm) 4.86 -Area of Debridement (cm) - Length 2.7 -Area of Debridement (cm) - Width 1.8 -Total Square (Area) (cm) 4.86 -Tunneling No -Undermining/Tunneling No -Circular Undermining No -Wound/Ulcer Outcome Not Healed -Ulcer Cleansing Rinsed/ Irrigated with Saline -Foul Odor after Cleansing No -Bioengineered Tissue No -Bleeding Controlled with Pressure -Treatment Response Procedure Tolerated Well -Debridement - Subq, 1st 20sq cm Yes Pain Scale: 0-10 Numeric Is Patient Pain Free? Yes - Nurse 3 - General Ulcer D/C NN Start: 08/12/23 11:43 Freq: Status: Active Protocol: Activity Type Activity Date Activity User E-sign Co-sign Detail Recorded Client Recorded Date Recorded By Document 08/12/23 12:08 Desktop 08/12/23 12:10 RB 08/12/23 12:08 Wound Care Center Nurse 3 #2- Umm SAL (TRAUMA) -Ulcer Cleansing Rinsed/ Irrigated with Saline -Primary Dressing Applied Mepilex Border -Other Dressing hydrogel -Mepilex Border 1 Left -Tubular Bandage Single Layer -Size of Tubigrip Used Size C -Size C ($) 2 Treatment Response Procedure Tolerated Well Pain Scale: 0-10 Numeric Is Patient Pain Free? Yes Teaching: Wound Center Compression Wraps & Stockings -Person Taught Patient -Teaching Method Discussion, Demonstration -Response to teaching Verbalize understanding WC - Visit Discharge Discharge Condition Stable Ambulatory Status Ambulatory Transportation Private Auto Medication Reconcilliation completed & No provided to patient/care provider Clinical Summary of Care Provided Yes Assessment/Plan Assessment/Plan (1) Laceration of left lower leg with complication: CODE(S): S81.812A - Laceration without foreign body, left lower leg, initial encounter QUALIFIERS: Encounter type: subsequent encounter Qualified Code(s): S81.812D - Laceration without foreign body, left lower leg, subsequent encounter (2) Cellulitis of left lower limb: CODE(S): L03.116 - Cellulitis of left lower limb (3) Varicose veins of both lower extremities with inflammation: CODE(S): I83.11 - Varicose veins of right lower extremity with inflammation; I83.12 - Varicose veins of left lower extremity with inflammation (4) Chronic venous insufficiency: CODE(S): I87.2 - Venous insufficiency (chronic) (peripheral) (5) Arthritis: CODE(S): M19.90 - Unspecified osteoarthritis, unspecified site (6) History of TIA (transient ischemic attack): CODE(S): Z86.73 - Personal history of transient ischemic attack (TIA), and cerebral infarction without residual deficits (7) Osteoporosis: CODE(S): M81.0 - Age-related osteoporosis without current pathological fracture (8) Hypertension: CODE(S): I10 - Essential (primary) hypertension QUALIFIERS: Hypertension type: essential hypertension Qualified Code(s): I10 - Essential (primary) hypertension (9) GERD (gastroesophageal reflux disease): CODE(S): K21.9 - Gastro-esophageal reflux disease without esophagitis QUALIFIERS: Esophagitis presence: esophagitis presence not specified Qualified Code(s): K21.9 - Gastro-esophageal reflux disease without esophagitis (10) Hypothyroid: CODE(S): E03.9 - Hypothyroidism, unspecified QUALIFIERS: Hypothyroidism type: unspecified Qualified Code(s): E03.9 - Hypothyroidism, unspecified (11) History of left knee replacement: CODE(S): Z96.652 - Presence of left artificial knee joint (12) Hyperlipidemia: CODE(S): E78.5 - Hyperlipidemia, unspecified (13) History of carpal tunnel release: CODE(S): Z98.890 - Other specified postprocedural states (14) History of right knee surgery: CODE(S): Z98.890 - Other specified postprocedural states (15) History of breast biopsy: CODE(S): Z98.890 - Other specified postprocedural states (16) History of total left knee replacement: CODE(S): Z96.652 - Presence of left artificial knee joint PLAN: Plan This is an 87-year-old female who is active and functional. She presented with a chronic nonhealing wound to the left pretibial surface, the result of trauma approximately 3 weeks prior to her presentation. Cellulitis had developed, and appears to have resolved as a result of 2 courses of oral antibiotics. The patient has been encouraged to optimize her nutritional intake. Review of the patient's recent laboratory results reveals no significant abnormalities, with t otal protein and albumin to be relatively normal. We are to continue the use of collagen hydrogel topically, which will be applied by the patient on a daily basis. She has been instructed in the appropriate means of application. She is to remain active, and elevate her lower extremities while sedentary. We are to also implement the use of Tubigrip's for the sake of compression, which will be donned on a daily basis. The patient is to return in 2 weeks for reevaluation. Total time: 24 minutes
[2023-08-26 10:58] VITALS: BP 182/104; PULSE 84; TEMP 35.8; BMI 22.8
--- NOTE | 2023-08-26 13:31 | HP.PCM_ITS ---
History of Present Illness Date of Service: 08/26/23 Chief Complaint: Laceration of the left distal lower extremity with associated cellulitis History of Wound: This is an 87-year-old female who is active and functional. She presents with a chronic, non-healing wound on the left pretibial surface, the result of a traumatic injury approximately 3 weeks prior to presentation. 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 This resulted in a laceration. She was initially seen in an urgent care facility, and a day later by her primary care physician. She developed a cellulitis, and has been treated with 2 courses of oral antibiotics, both Keflex and doxycycline. Wound cultures were obtained, which were negative. She has been using an antibiotic ointment topically. The patient is of normal body habitus. She is active. She sleeps on a flat mattress at night. She denies a history of thromboembolic disease. Recent laboratory studies were done on June 20, 2023, with results as follows: White blood count 7.4, hemoglobin 3.8, hematocrit 43.5, platelets 214,000, sodium 143, potassium 4.1, chloride 109, BUN 20, creatinine 1.04, glucose 94, calcium 9.1, total bilirubin 0.50, ALT 29, alkaline phosphatase 83, total protein 6.6, serum albumin 3.7. [facility] Medical History Arthritis Cellulitis of left lower limb Cervical myofascial strain Chronic venous insufficiency Contusion, nose Diarrhea Forehead abrasion History of cerebral aneurysm History of deep vein thrombosis History of patellar fracture History of pulmonary embolism History of TIA (transient ischemic attack) Hyperlipidemia Laceration of left hand Laceration of left lower leg with complication Laceration of right lower leg Microscopic colitis Osteoporosis Right leg pain Skin tear of left lower leg without complication Small intestinal bacterial overgrowth Varicose veins of both lower extremities with inflammation Home Medications levothyroxine 75 mcg tablet 75 mcg PO DAILY thyroid 07/23/13 [History Last Taken 11/13/19] calcium carbonate 500 mg-vitamin D3 10 mcg (400 unit) tablet 1 ea PO DAILY s upplement 02/10/14 [History Last Taken Unknown] cyanocobalamin (vitamin B-12) 500 mcg tablet 500 mcg PO DAILY@0800 supplement 02/10/14 [History Last Taken Unknown] hydroxychloroquine 200 mg tablet 300 mg PO DAILY arthritis 05/29/19 [History Last Taken Unknown] metoprolol succinate 25 mg tablet,extended release 24 hr 25 mg PO DAILY bp/heart 05/29/19 [History Last Taken Unknown] acetaminophen 325 mg tablet 650 mg (2 x 325 mg) PO Q6H PRN PRN Pain Score 1- 10/Temp > 100.7 F #100 tabs 11/15/19 [Rx Last Taken Unknown] colestipol 1 gram tablet 1 g PO BID diarrhea #180 tabs 11/14/22 [Rx Last Taken Unknown] PRAMIPEXOLE DIHYDROCHLORIDE 0.125 mg PO QHS PRN INSOMNIA 08/05/23 [History Last Taken Unknown] Allergy/AdvReac Type Severity Reaction Status Date / Time No Known Allergies Allergy Verified 08/05/23 09:21 Family History Father CVA (cerebral vascular accident) Mother CVA (cerebral vascular accident) Surgical History History of breast biopsy History of carpal tunnel release History of right knee surgery History of total left knee replacement Surgical History no surgical history Social History Smoking Status: Never smoker alcohol intake: current alcohol intake frequency: a few times a month Vital Signs Vital Signs Vital Signs: 08/26/23 10:58 Temperature 96.4 F L Temperature Source Temporal Pulse Rate 84 Blood Pressure 182/104 H Blood Pressure Mean 130 Blood Pressure Source Monitor Oxygen Delivery Method Room Air Weight Weight: 125 lb Body Mass Index (BMI) 22.8 Physical Exam Const alert, oriented x3, no apparent distress, average body habitus, no limitations, healthy appearing and well nourished General Appearance: cooperative, comfortable, well kempt and well developed Orientation / Consciousness: awake, oriented to person, oriented to place and oriented to time HEENT normocephalic, head/scalp atraumatic and hearing grossly normal bilaterally Head and Scalp: normal to inspection, normocephalic and atraumatic External Ear: external ears normal Eyes PERRL and EOMs intact bilaterally General Eye: normal appearance of both eyes Neck full ROM Resp normal respiratory effort, normal air movement, no retractions and no use of accessory muscles Effort and Inspection: able to speak in complete sentences and symmetric chest movement Extremity no calf tenderness General Extremity: Negative for clubbing or cyanosis Skin Wound Narrative: No significant swelling or edema are noted in the patient's lower extremities bilaterally. Numerous varicosities are noted in the lower extremities diffusely. Mild hemosiderin staining is noted in the gaiter areas bilaterally. A wound is noted on the left pretibial surface, which appears slightly smaller in size. Dimensions are documented elsewhere. There is a moderate amount of bioburden. There is no sign of infection or cellulitis. Neuro oriented x3, CN's II-XII intact bilaterally, moves all extremities and no focal motor deficits Sensorium / Orientation: awake, alert, oriented to person, oriented to place and oriented to time Psych Appearance: grossly normal and appropriate Attitude: calm Activity / Motor Behavior: appropriate eye contact Speech: normal speech Mood & Affect: euthymic mood Thought Process: normal thought process Thought Content: normal thought content Attention / Concentration: attention grossly intact Debridement Note Debridement Note Wound debrided: Left pretibial traumatic wound Laterality: Left Type of Debridement: Excisional debridement Anesthesia Used: 5% Lidocaine Gel and Cetacaine Depth: Down to and including healthy tissue and in the subcutaneous layer Percentage of wound debrided: 100 Instrument Used: 5mm curette Tissue Removed: Bioburden and nonviable/necrotic tissue Severity: Fat Layer Exposed Amount of bleeding with debridement: Mild Bleeding Controlled with: Compression and gauze Patient tolerated procedure: Patient tolerated procedure well Post-Debridement Measurements and Additional Note: Post-Debridement Measurements/Treatment - Nurse 1 - General Ulcer Assessment Start: 08/12/23 11:43 Freq: Status: Active Protocol: LEDY.[email or web address] Activity Type Activity Date Activity User E-sign Co-sign Detail Recorded Client Recorded Date Recorded By Document 08/12/23 11:43 Desktop 08/12/23 11:47 RB Document 08/26/23 10:58 Desktop 08/26/23 11:02 08/12/23 08/26/23 11:43 10:58 - Today's Visit Information Type of service Follow-up Visit Follow-up Visit (Physician/NURSING SERVICES MANAGER (Physician/NURSING SERVICES MANAGER ) ) Arrival Mode Ambulatory Ambulatory Transfer Assistance None None Patient Identification Verified (Name & Yes Yes ) Patient Requires Transmission-Based No No Precautions Height and Weight Body Mass Index (BMI) 22.8 22.8 BMI Classification Normal Normal Vital Signs Temperature (97.8 F-99.1 F) 97 F L 96.4 F L Temperature Source Temporal Temporal Pulse Rate (60-100) 72 84 Pulse Location Monitor Monitor Respiratory Rate (12-18) 18 Respiratory rate source Observation Observation Oxygen Delivery Method Room Air Blood Pressure (90/60-120/80) 132/77 H 182/104 H Blood Pressure Mean 95 130 Source Monitor Monitor Position Semi-Fowlers Blood Pressure Location Left Arm History Since Last Visit- (Skip if this is Patient's initial visit) Have you changed medications since your No No last visit? Any new allergies or adverse reactions No No Had a fall/change in ADL's that may No No increase risk of falls Signs or symptoms of abuse and/or No No neglect since last visit Have you been in the hospital since your No No last visit? Has dressing in place as prescribed Yes Yes Has compression in place as prescribed No Yes Has offloadiing in place as prescribed No No Experienced any changes in pain level or No No management Left Footwear Regular Shoe Right Footwear Regular Shoe Pain Scale: 0-10 Numeric Is Patient Pain Free? Yes Yes - Nurse 1 - General Ulcer Measurement Start: 08/12/23 11:43 Freq: Status: Active Protocol: Activity Type Activity Date Activity User E-sign Co-sign Detail Recorded Client Recorded Date Recorded By Document 08/12/23 11:43 RB Desktop 08/12/23 11:47 RB Document 08/26/23 10:58 Desktop 08/26/23 11:02 08/12/23 08/26/23 11:43 10:58 Wound Center Nurse 1 #2- L SAL (TRAUMA) -Combined with other wound No No -Current Size (cm) - Length 2.7 1.4 -Current Size (cm) - Width 1.8 0.8 -Current Size (cm) - Depth 0.2 0.1 -Total Square Cm 4.86 1.12 -Epithelialization Medium 34-66% -Tunneling No No -Undermining/Tunneling No No -Circular Undermining No No -Exudate Amt Medium Small -Exudate Type Serosanguineous Serous -Wound Margin Distinct, Distinct, Outline Outline Attached Attached -Granulation Amt Medium (34-66%) Medium (34-66%) -Granulation Quality [place] Red -Slough/Fibrin Yes Yes -Necrosis Amt Medium (34-66%) Small (1-33%) -Necrotic Tissue Type Adherent Slough Adherent Slough -Structure Exposed N/A -Texture (Jennifer-wound Skin Appearance) Assessed, Assessed Scarring -Moisture (Jennifer-wound Skin Appearance) Assessed Assessed -Color (Jennifer-wound Skin Appearance) Assessed Assessed -Temperature (Jennifer-wound Skin No Abnormality No Abnormality Appearance) (Pt Warm) (Pt Warm) -Tenderness on Palpation (Jennifer-wound No Skin Appearance) -Ulcer Cleansing Wound Cleanser Soap and Water -Foul Odor after Cleansing No No -Anesthetic Used 4% Lidocaine 5% Lidocaine Solution Gel Lower Limb Edema Present No Left Calf (cm) 31.5 Left Ankle (cm) 17.5 WC - Nurse 2 - General Ulcer CM Notes Start: 08/12/23 11:43 Freq: Status: Active Protocol: Activity Type Activity Date Activity User E-sign Co-sign Detail Recorded Client Recorded Date Recorded By Document 08/12/23 13:52 PL [id number] 08/12/23 13:53 PL Document 08/26/23 11:44 PL [id number] 08/26/23 11:45 PL 08/12/23 08/26/23 13:52 11:44 Wound Center Nurse 2 #2- L DORON (TRAUMA) -Time 12:00 11:06 -Correct Patient Yes Yes -Correct Side, Site, Position Yes Yes -Correct Procedure Yes Yes -Procedure Performed Yes Yes -Type of Procedure Debridement Debridement -Clinical Debridement Subcutaneous Subcutaneous -Tissue Removed Subcutaneous Subcutaneous -Post Debridement (cm) - Length 2.7 1.4 -Post Debridement (cm) - Width 1.8 0.8 -Post Debridement (cm) - Depth 0.2 0.1 -Total Square (Post) (cm) 4.86 1.12 -Area of Debridement (cm) - Length 2.7 1.4 -Area of Debridement (cm) - Width 1.8 0.8 -Total Square (Area) (cm) 4.86 1.12 -Tunneling No No -Undermining/Tunneling No No -Circular Undermining No No -Wound/Ulcer Outcome Not Healed Not Healed -Ulcer Cleansing Rinsed/ Rinsed/ Irrigated with Irrigated with Saline Saline -Foul Odor after Cleansing No No -Bioengineered Tissue No No -Bleeding Controlled with Pressure Pressure -Treatment Response Procedure Procedure Tolerated Well Tolerated Well -Debridement - Subq, 1st 20sq cm Yes Yes Pain Scale: 0-10 Numeric Is Patient Pain Free? Yes Yes - Nurse 3 - General Ulcer D/C NN Start: 08/12/23 11:43 Freq: Status: Active Protocol: Activity Type Activity Date Activity User E-sign Co-sign Detail Recorded Client Recorded Date Recorded By Document 08/12/23 12:08 RB Desktop 08/12/23 12:10 RB Document 08/26/23 11:22 GM Desktop 08/26/23 11:23 08/12/23 08/26/23 12:08 11:22 Wound Care Center Nurse 3 #2- L SAL (TRAUMA) -Ulcer Cleansing Rinsed/ Not Cleansed Irrigated with Saline -Foul Odor after Cleansing No -Primary Dressing Applied Mepilex Border C Hydrogel ($), Mepilex Border -Other Dressing hydrogel -Mepilex Border 1 1 Left -Lotion applied to leg before No compression wrap -Tubular Bandage Single Layer Single Layer -Size of Tubigrip Used Size C Size C -Size C ($) 2 1 Treatment Response Procedure Tolerated Well Pain Scale: 0-10 Numeric Is Patient Pain Free? Yes Yes Teaching: Wound Center Compression Wraps & Stockings -Person Taught Patient Patient -Teaching Method Discussion, Discussion Demonstration -Response to teaching Verbalize Verbalize understanding understanding WC - Visit Discharge Discharge Condition Stable Stable Ambulatory Status Ambulatory Ambulatory Transportation Private Auto Private Auto Medication Reconcilliation completed & No Yes provided to patient/care provider Clinical Summary of Care Provided Yes Yes Assessment/Plan Assessment/Plan (1) Laceration of left lower leg with complication: CODE(S): S81.812A - Laceration without foreign body, left lower leg, initial encounter QUALIFIERS: Encounter type: subsequent encounter Qualified Code(s): S81.812D - Laceration without foreign body, left lower leg, subsequent encounter (2) Cellulitis of left lower limb: CODE(S): L03.116 - Cellulitis of left lower limb (3) Varicose veins of both lower extremities with inflammation: CODE(S): I83.11 - Varicose veins of right lower extremity with inflammation; I83.12 - Varicose veins of left lower extremity with inflammation (4) Chronic venous insufficiency: CODE(S): I87.2 - Venous insufficiency (chronic) (peripheral) (5) Arthritis: CODE(S): M19.90 - Unspecified osteoarthritis, unspecified site (6) History of TIA (transient ischemic attack): CODE(S): Z86.73 - Personal history of transient ischemic attack (TIA), and cerebral infarction without residual deficits (7) Osteoporosis: CODE(S): M81.0 - Age-related osteoporosis without current pathological fracture (8) Hypertension: CODE(S): I10 - Essential (primary) hypertension QUALIFIERS: Hypertension type: essential hypertension Qualified Code(s): I10 - Essential (primary) hypertension (9) GERD (gastroesophageal reflux disease): CODE(S): K21.9 - Gastro-esophageal reflux disease without esophagitis QUALIFIERS: Esophagitis presence: esophagitis presence not specified Qualified Code(s): K21.9 - Gastro-esophageal reflux disease without esophagitis (10) Hypothyroid: CODE(S): E03.9 - Hypothyroidism, unspecified QUALIFIERS: Hypothyroidism type: unspecified Qualified Code(s): E03.9 - Hypothyroidism, unspecified (11) History of left knee replacement: CODE(S): Z96.652 - Presence of left artificial knee joint (12) Hyperlipidemia: CODE(S): E78.5 - Hyperlipidemia, unspecified (13) History of carpal tunnel release: CODE(S): Z98.890 - Other specified postprocedural states (14) History of right knee surgery: CODE(S): Z98.890 - Other specified postprocedural states (15) History of breast biopsy: CODE(S): Z98.890 - Other specified postprocedural states (16) History of total left knee replacement: CODE(S): Z96.652 - Presence of left artificial knee joint PLAN: Plan This is an 87-year-old female who is active and functional. She presented with a chronic nonhealing wound to the left pretibial surface, the result of trauma approximately 3 weeks prior to her presentation. Cellulitis had developed, and appears to have resolved as a result of 2 courses of oral antibiotics. The patient has been encouraged to optimize her nutritional intake. [facility] reveals no significant abnormalities, with total protein and albumin to be relatively normal. We are to continue the use of collagen hydrogel topically, which will be applied by the patient on a daily basis. She has been instructed in the appropriate means of application. She is to remain active, and elevate her lower extremities as much as possible while sedentary. We are to also continue the use of Tubigrip's for the sake of compression, which will be donned on a daily basis. The patient is to return in 2 weeks for reevaluation. Total time: 25 minutes
== END 2023-09-04 23:59 | disposition home or self-care (01) ==
LOC: WC 11:00
PROVIDERS: PCP Family Medicine Geriatric Medicine; Referring Provider Family Medicine Geriatric Medicine; Visit Provider Surgery
DX: L03.116 Cellulitis of left lower limb (principal); I87.2 Venous insufficiency (chronic) (peripheral); I10 Essential (primary) hypertension; E03.9 Hypothyroidism, unspecified; I83.11 Varicose veins of right lower extremity with inflammation; S81.812A Laceration without foreign body, left lower leg, initial encounter; E78.5 Hyperlipidemia, unspecified; W22.03XA Walked into furniture, initial encounter; Y99.2 Volunteer activity; Y92.512 Supermarket, store or market as the place of occurrence of the external cause; Z79.899 Other long term (current) drug therapy; Z79.890 Hormone replacement therapy
CPT/HCPCS: 11042

== ENCOUNTER 2023-09-09 08:46 | Outpatient (RCR) | payer MEDICARE, SELFPAY ==
[2023-09-05 00:38] VITALS: BP 182/104; PULSE 84; RESP 18; TEMP 35.8; BMI 22.8
[2023-09-09 08:52] VITALS: BP 155/83; PULSE 84; RESP 18; TEMP 36.3; BMI 22.8
--- NOTE | 2023-09-09 09:14 | PCM.WC.HP ---
History of Present Illness Date of Service: 09/09/23 Chief Complaint: Laceration of the left distal lower extremity with associated cellulitis History of Wound: This is an 87-year-old female who is active and functional. She presents with a chronic, non-healing wound on the left pretibial surface, the result of a traumatic injury approximately 3 weeks prior to presentation. 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 This resulted in a laceration. She was initially seen in an urgent care facility, and a day later by her primary care physician. She developed a cellulitis, and has been treated with 2 courses of oral antibiotics, both Keflex and doxycycline. Wound cultures were obtained, which were negative. She has been using an antibiotic ointment topically. The patient is of normal body habitus. She is active. She sleeps on a flat mattress at night. She denies a history of thromboembolic disease. Recent laboratory studies were done on June 20, 2023, with results as follows: White blood count 7.4, hemoglobin 3.8, hematocrit 43.5, platelets 214,000, sodium 143, potassium 4.1, chloride 109, BUN 20, creatinine 1.04, glucose 94, calcium 9.1, total bilirubin 0.50, ALT 29, alkaline phosphatase 83, total protein 6.6, serum albumin 3.7. [facility] Medical History Arthritis Cellulitis of left lower limb Cervical myofascial strain Chronic venous insufficiency Contusion, nose Diarrhea Forehead abrasion History of cerebral aneurysm History of deep vein thrombosis History of patellar fracture History of pulmonary embolism History of TIA (transient ischemic attack) Hyperlipidemia Laceration of left hand Laceration of left lower leg with complication Laceration of right lower leg Microscopic colitis Osteoporosis Right leg pain Skin tear of left lower leg without complication Small intestinal bacterial overgrowth Varicose veins of both lower extremities with inflammation Home Medications levothyroxine 75 mcg tablet 75 mcg PO DAILY thyroid 07/23/13 [History Last Taken 11/13/19] calcium carbonate 500 mg-vitamin D3 10 mcg (400 unit) tablet 1 ea PO DAILY supplement 02/10/14 [History Last Taken Unknown] cyanocobalamin (vitamin B-12) 500 mcg tablet 500 mcg PO DAILY@0800 supplement 02/10/14 [History Last Taken Unknown] hydroxychloroquine 200 mg tablet 300 mg PO DAILY arthritis 05/29/19 [History Last Taken Unknown] metoprolol succinate 25 mg tablet,extended release 24 hr 25 mg PO DAILY bp/heart 05/29/19 [History Last Taken Unknown] acetaminophen 325 mg tablet 650 mg (2 x 325 mg) PO Q6H PRN PRN Pain Score 1-10/Temp > 100.7 F #100 tabs 11/15/19 [Rx Last Taken Unknown] colestipol 1 gram tablet 1 g PO BID diarrhea #180 tabs 11/14/22 [Rx Last Taken Unknown] PRAMIPEXOLE DIHYDROCHLORIDE 0.125 mg PO QHS PRN INSOMNIA 08/05/23 [History Last Taken Unknown] Allergy/AdvReac Type Severity Reaction Status Date / Time No Known Allergies Allergy Verified 08/05/23 09:21 Family History Father CVA (cerebral vascular accident) Mother CVA (cerebral vascular accident) Surgical History History of breast biopsy History of carpal tunnel release History of right knee surgery History of total left knee replacement Surgical History no surgical history Social History Smoking Status: Never smoker alcohol intake: current alcohol intake frequency: a few times a month Vital Signs Vital Signs Vital Signs: 09/09/23 08:52 Temperature 97.3 F L Temperature Source Temporal Pulse Rate 84 Respiratory Rate 18 Blood Pressure 155/83 H Blood Pressure Mean 107 Blood Pressure Source Monitor Weight Weight: 125 lb Body Mass Index (BMI) 22.8 Physical Exam Const alert, oriented x3, no apparent distress, average body habitus, no limitations, healthy appearing and well nourished General Appearance: cooperative, comfortable, well kempt and well developed Orientation / Consciousness: awake, oriented to person, oriented to place and oriented to time HEENT normocephalic, head/scalp atraumatic and hearing grossly normal bilaterally Head and Scalp: normal to inspection, normocephalic and atraumatic External Ear: external ears normal Eyes PERRL and EOMs intact bilaterally General Eye: normal appearance of both eyes Neck full ROM Resp normal respiratory effort, normal air movement, no retractions and no use of accessory muscles Effort and Inspection: able to speak in complete sentences and symmetric chest movement Extremity no calf tenderness General Extremity: Negative for clubbing or cyanosis Skin Wound Narrative: No significant swelling or edema are noted in the patient's lower extremities bilaterally. Numerous varicosities are noted in the lower extremities diffusely. Mild hemosiderin staining is noted in the gaiter areas bilaterally. A wound is noted on the left pretibial surface, which appears smaller in size. Dimensions are documented elsewhere. There is a small amount of bioburden. There is no sign of infection or cellulitis. Neuro oriented x3, CN's II-XII intact bilaterally, moves all extremities and no focal motor deficits Sensorium / Orientation: awake, alert, oriented to person, oriented to place and oriented to time Psych Appearance: grossly normal and appropriate Attitude: calm Activity / Motor Behavior: appropriate eye contact Speech: normal speech Mood & Affect: euthymic mood Thought Process: normal thought process Thought Content: normal thought content Attention / Concentration: attention grossly intact Debridement Note Debridement Note Wound debrided: Left pretibial traumatic wound Laterality: Left Type of Debridement: Excisional debridement Anesthesia Used: 5% Lidocaine Gel and Cetacaine Depth: Down to and including healthy tissue and in the subcutaneous layer Percentage of wound debrided: 100 Instrument Used: 3mm curette Tissue Removed: Bioburden and nonviable/necrotic tissue Severity: Fat Layer Exposed Amount of bleeding with debridement: Mild Bleeding Controlled with: Compression and gauze Patient tolerated procedure: Patient tolerated procedure well Post-Debridement Measurements and Additional Note: Post-Debridement Measurements/Treatment - Nurse 1 - General Ulcer Assessment Start: 09/09/23 08:51 Freq: Status: Active Protocol: LEDY.[email or web address] Activity Type Activity Date Activity User E-sign Co-sign Detail Recorded Client Recorded Date Recorded By Document 09/09/23 08:52 DL Desktop 09/09/23 08:59 DL 09/09/23 08:52 - Today's Visit Information Type of service Follow-up Visit (Physician/CORPORATE GENERAL MANAGER ) Arrival Mode Ambulatory Transfer Assistance None Patient Identification Verified (Name & Yes ) Patient Requires Transmission-Based No Precautions Height and Weight Body Mass Index (BMI) 22.8 BMI Classification Normal Vital Signs Temperature (97.8 F-99.1 F) 97.3 F L Temperature Source Temporal Pulse Rate (60-100) 84 Pulse Location Monitor Respiratory Rate (12-18) 18 Blood Pressure (90/60-120/80) 155/83 H Blood Pressure Mean 107 Source Monitor Pain Scale: 0-10 Numeric Is Patient Pain Free? Yes - Nurse 1 - General Ulcer Measurement Start: 09/09/23 08:51 Freq: Status: Active Protocol: Activity Type Activity Date Activity User E-sign Co-sign Detail Recorded Client Recorded Date Recorded By Document 09/09/23 08:52 Desktop 09/09/23 08:59 DL 09/09/23 08:52 Wound Center Nurse 1 #2- L SAL (TRAUMA) -Current Size (cm) - Length 0.4 -Current Size (cm) - Width 0.2 -Current Size (cm) - Depth 0.2 -Total Square Cm 0.08 -Exudate Amt Small -Exudate Type Serosanguineous -Wound Margin Distinct, Outline Attached -Granulation Amt Small (1-33%) -Granulation Quality Red -Necrosis Amt Small (1-33%) -Necrotic Tissue Type Adherent Slough -Structure Exposed N/A -Texture (Jennifer-wound Skin Appearance) Scarring -Moisture (Jennifer-wound Skin Appearance) No Abnormality -Color (Jennifer-wound Skin Appearance) No Abnormality -Temperature (Jennifer-wound Skin No Abnormality Appearance) (Pt Warm) -Tenderness on Palpation (Jennifer-wound No Skin Appearance) -Ulcer Cleansing Rinsed/ Irrigated with Saline -Foul Odor after Cleansing No -Anesthetic Used 5% Lidocaine Gel Left Calf (cm) 30 Left Ankle (cm) 16.8 - Nurse 3 - General Ulcer D/C NN Start: 09/09/23 08:51 Freq: Status: Active Protocol: Activity Type Activity Date Activity User E-sign Co-sign Detail Recorded Client Recorded Date Recorded By Document 09/09/23 09:12 DL Desktop 09/09/23 09:14 DL 09/09/23 09:12 Wound Care Center Nurse 3 #2- L SAL (TRAUMA) -Ulcer Cleansing Rinsed/ Irrigated with Saline -Foul Odor after Cleansing No -Other Dressing hydrogel -Primary Dressing Covered/Secured with Dry Gauze, Secured with Tape -Other Covering tubigrip Treatment Response Procedure Tolerated Well Pain Scale: 0-10 Numeric Is Patient Pain Free? Yes WC - Visit Discharge Discharge Condition Stable Ambulatory Status Ambulatory Transportation Private Auto Assessment/Plan Assessment/Plan (1) Laceration of left lower leg with complication: CODE(S): S81.812A - Laceration without foreign body, left lower leg, initial encounter QUALIFIERS: Encounter type: subsequent encounter Qualified Code(s): S81.812D - Laceration without foreign body, left lower leg, subsequent encounter (2) Chronic venous insufficiency: CODE(S): I87.2 - Venous insufficiency (chronic) (peripheral) (3) Varicose veins of both lower extremities with inflammation: CODE(S): I83.11 - Varicose veins of right lower extremity with inflammation; I83.12 - Varicose veins of left lower extremity with inflammation (4) Cellulitis of left lower limb: CODE(S): L03.116 - Cellulitis of left lower limb (5) Arthritis: CODE(S): M19.90 - Unspecified osteoarthritis, unspecified site (6) History of TIA (transient ischemic attack): CODE(S): Z86.73 - Personal history of transient ischemic attack (TIA), and cerebral infarction without residual deficits (7) Osteoporosis: CODE(S): M81.0 - Age-related osteoporosis without current pathological fracture (8) Hypertension: CODE(S): I10 - Essential (primary) hypertension QUALIFIERS: Hypertension type: essential hypertension Qualified Code(s): I10 - Essential (primary) hypertension (9) GERD (gastroesophageal reflux disease): CODE(S): K21.9 - Gastro-esophageal reflux disease without esophagitis QUALIFIERS: Esophagitis presence: esophagitis presence not specified Qualified Code(s): K21.9 - Gastro-esophageal reflux disease without esophagitis (10) Hypothyroid: CODE(S): E03.9 - Hypothyroidism, unspecified QUALIFIERS: Hypothyroidism type: unspecified Qualified Code(s): E03.9 - Hypothyroidism, unspecified (11) History of left knee replacement: CODE(S): Z96.652 - Presence of left artificial knee joint (12) Hyperlipidemia: CODE(S): E78.5 - Hyperlipidemia, unspecified (13) History of carpal tunnel release: CODE(S): Z98.890 - Other specified postprocedural states (14) History of right knee surgery: CODE(S): Z98.890 - Other specified postprocedural states (15) History of breast biopsy: CODE(S): Z98.890 - Other specified postprocedural states (16) History of total left knee replacement: CODE(S): Z96.652 - Presence of left artificial knee joint PLAN: Plan This is an 87-year-old female who is active and functional. She presented with a chronic nonhealing wound to the left pretibial surface, the result of trauma approximately 3 weeks prior to her presentation. Cellulitis had developed, and appears to have resolved as a result of 2 courses of oral antibiotics. The patient has been encouraged to optimize her nutritional intake. Review of the patient's recent laboratory results reveals no significant abnormalities, with total protein and albumin to be relatively normal. We are to continue the use of collagen hydrogel topically, which will be applied by the patient on a daily basis. She has been instructed in the appropriate means of application. She is to remain active, and elevate her lower extremities as much as possible while sedentary. We are to also continue the use of Tubigrip's for the sake of compression, which will be donned on a daily basis. The patient is to return in 2 weeks for reevaluation. It is anticipated that the patient may be totally healed upon her next return visit. Total time: 24 minutes
== END 2023-10-05 23:59 | disposition home or self-care (01) ==
LOC: WC 08:46
PROVIDERS: PCP Family Medicine Geriatric Medicine; Referring Provider Family Medicine Geriatric Medicine; Visit Provider Surgery
DX: S81.812A Laceration without foreign body, left lower leg, initial encounter (principal); L03.116 Cellulitis of left lower limb; E03.9 Hypothyroidism, unspecified; M19.90 Unspecified osteoarthritis, unspecified site; I10 Essential (primary) hypertension; K21.9 Gastro-esophageal reflux disease without esophagitis; E78.5 Hyperlipidemia, unspecified; M81.0 Age-related osteoporosis without current pathological fracture; I83.11 Varicose veins of right lower extremity with inflammation; I87.2 Venous insufficiency (chronic) (peripheral); W22.03XA Walked into furniture, initial encounter
CPT/HCPCS: 11042

== ENCOUNTER → 2023-09-25 | Outpatient (CLI) | payer MEDICARE, SELFPAY ==
--- NOTE | 2023-09-25 09:37 | RAD_ITS ---
STUDY: X-RAY - ABDOMEN/PELVIS REASON FOR EXAM: Female, 88 years old. ABDOMINAL PAIN TECHNIQUE: Frontal views COMPARISON: None. FINDINGS: Normal visualized lung bases. There is an unremarkable bowel gas pattern. There is no demonstrated free abdominal air. There is an IVC filter. Normal soft tissue structures. Mild scoliosis. RAD/Abd Inc Decub and/or Erect IMPRESSION: No sign of bowel obstruction. Electronically Signed: Augustin Chase DO at 23:55 EST Reading Location ID and State: [facility] / [place] Tel [phone], Service support ,
== END | disposition home or self-care (01) ==
LOC: RAD 09:25
PROVIDERS: PCP Family Medicine Geriatric Medicine; Referring Provider Family Medicine Geriatric Medicine; Visit Provider Family Medicine Geriatric Medicine
DX: R10.9 Unspecified abdominal pain (principal)
CPT/HCPCS: 74019

== ENCOUNTER 2023-11-04 10:30 | Outpatient (RCR) | payer MEDICARE, SELFPAY ==
[2023-10-06 00:20] VITALS: BP 155/83; PULSE 84; RESP 18; TEMP 36.3; BMI 22.8
[2023-10-21 10:17] VITALS: BMI 22.8
--- NOTE | 2023-10-21 10:57 | PCM.WC.HP ---
History of Present Illness Date of Service: 10/21/23 Chief Complaint: Laceration of the right pretibial surface History of Wound: This is an 88-year-old female who is active and functional. She presented today with an new, open wound on the right pretibial surface, which she sustained approximately 1 week prior to presentation. She tripped over the cat, sustaining trauma to the right pretibial region, resulting in an open wound. She has recently been treated at the [facility] for a chronic, non-healing wound on the left pretibial surface, the result of a traumatic injury approximately 3 weeks prior to presentation. As result of conservative treatment measures, the wound on the left pretibial surface has healed, the patient was last seen at this facility in September 2023. The patient is of normal body habitus. She is active. She sleeps on a flat mattress at night. She denies a history of thromboembolic disease. Recent laboratory studies were done on June 20, 2023, with results as follows: White blood count 7.4, hemoglobin 3.8, hematocrit 43.5, platelets 214,000, sodium 143, potassium 4.1, chloride 109, BUN 20, creatinine 1.04, glucose 94, calcium 9.1, total bilirubin 0.50, ALT 29, alkaline phosphatase 83, total protein 6.6, serum albumin 3.7. [facility] Medical History Arthritis Cellulitis of left lower limb Cervical myofascial strain Chronic venous insufficiency Contusion, nose Diarrhea Forehead abrasion History of cerebral aneurysm History of deep vein thrombosis History of patellar fracture History of pulmonary embolism History of TIA (transient ischemic attack) Hyperlipidemia Laceration of left hand Laceration of left lower leg with complication Laceration of right lower leg Microscopic colitis Non-pressure ulcer of right lower extremity with fat layer exposed Osteoporosis Right leg pain Skin tear of left lower leg without complication Small intestinal bacterial overgrowth Traumatic open wound of right lower leg Varicose veins of both lower extremities with inflammation Home Medications levothyroxine 75 mcg tablet 75 mcg PO DAILY thyroid 07/23/13 [History Last Taken 11/13/19] calcium carbonate 500 mg-vitamin D3 10 mcg (400 unit) tablet 1 ea PO DAILY supplement 02/10/14 [History Last Taken Unknown] cyanocobalamin (vitamin B-12) 500 mcg tablet 500 mcg PO DAILY@0800 supplement 02/10/14 [History Last Taken Unknown] hydroxychloroquine 200 mg tablet 300 mg PO DAILY arthritis 05/29/19 [History Last Taken Unknown] metoprolol succinate 25 mg tablet,extended release 24 hr 25 mg PO DAILY bp/heart 05/29/19 [History Last Taken Unknown] acetaminophen 325 mg tablet 650 mg (2 x 325 mg) PO Q6H PRN PRN Pain Score 1-10/Temp > 100.7 F #100 tabs 11/15/19 [Rx Last Taken Unknown] colestipol 1 gram tablet 1 g PO BID diarrhea #180 tabs 11/14/22 [Rx Last Taken Unknown] PRAMIPEXOLE DIHYDROCHLORIDE 0.125 mg PO QHS PRN INSOMNIA 08/05/23 [History Last Taken Unknown] Allergy/AdvReac Type Severity Reaction Status Date / Time No Known Allergies Allergy Verified 08/05/23 09:21 Family History Father CVA (cerebral vascular accident) Mother CVA (cerebral vascular accident) Surgical History History of breast biopsy History of carpal tunnel release History of right knee surgery History of total left knee replacement Surgical History no surgical history Social History Smoking Status: Never smoker alcohol intake: current alcohol intake frequency: a few times a month Vital Signs Vital Signs Vital Signs: Weight Weight: 125 lb Body Mass Index (BMI) 22.8 Physical Exam Const alert, oriented x3, no apparent distress, average body habitus, no limitations, healthy appearing and well nourished General Appearance: cooperative, comfortable, well kempt and well developed Orientation / Consciousness: awake, oriented to person, oriented to place and oriented to time HEENT normocephalic, head/scalp atraumatic and hearing grossly normal bilaterally Head and Scalp: normal to inspection, normocephalic and atraumatic External Ear: external ears normal Eyes PERRL and EOMs intact bilaterally General Eye: normal appearance of both eyes Neck full ROM Resp normal respiratory effort, normal air movement, no retractions and no use of accessory muscles Effort and Inspection: able to speak in complete sentences and symmetric chest movement Extremity no calf tenderness General Extremity: Negative for clubbing or cyanosis Skin Wound Narrative: No significant swelling or edema are noted in the patient's lower extremities bilaterally. Numerous varicosities are noted in the lower extremities diffusely. Mild hemosiderin staining is noted in the gaiter areas bilaterally. The patient's prior wound on the left pretibial surface remains completely healed. An open wound is now noted on the right pretibial surface, with a devitalized flap of epidermis loosely adherent to the surface. There is no sign of infection or cellulitis. Dimensions are documented elsewhere. There is a moderate amount of bioburden. Neuro oriented x3, CN's II-XII intact bilaterally, moves all extremities and no focal motor deficits Sensorium / Orientation: awake, alert, oriented to person, oriented to place and oriented to time Psych Appearance: grossly normal and appropriate Attitude: calm Activity / Motor Behavior: appropriate eye contact Speech: normal speech Mood & Affect: euthymic mood Thought Process: normal thought process Thought Content: normal thought content Attention / Concentration: attention grossly intact Debridement Note Debridement Note Wound debrided: Right pretibial wound Laterality: Right Type of Debridement: Excisional debridement Anesthesia Used: 5% Lidocaine Gel Depth: Down to and including healthy tissue and in the subcutaneous layer Percentage of wound debrided: 100 Instrument Used: 5mm curette, Forceps and - (Scissors) Tissue Removed: Bioburden, nonviable tissue, and devitalized epidermis Severity: Fat Layer Exposed Amount of bleeding with debridement: Mild Bleeding Controlled with: Compression and gauze Patient tolerated procedure: Patient tolerated procedure well Post-Debridement Measurements and Additional Note: Post-Debridement Measurements/Treatment WC - Nurse 1 - General Ulcer Assessment Start: 10/21/23 10:16 Freq: Status: Active Protocol: BETHEL Activity Type Activity Date Activity User E-sign Co-sign Detail Recorded Client Recorded Date Recorded By Document 10/21/23 10:17 MT Desktop 10/21/23 10:21 MT 10/21/23 10:17 Height and Weight Body Mass Index (BMI) 22.8 BMI Classification Normal Pain Scale: 0-10 Numeric Is Patient Pain Free? Yes WC - Nurse 1 - General Ulcer Measurement Start: 10/21/23 10:16 Freq: Status: Active Protocol: Activity Type Activity Date Activity User E-sign Co-sign Detail Recorded Client Recorded Date Recorded By Document 10/21/23 10:17 AK Desktop 10/21/23 10:21 AK 10/21/23 10:17 Wound Center Nurse 1 #3 Right Ankle -Current Size (cm) - Length 2.1 -Current Size (cm) - Width 1.8 -Current Size (cm) - Depth 0.1 -Total Square Cm 3.78 -Date of Last Picture (Recall this 10/21/23 field) -Photo Taken Yes -Tunneling No -Undermining/Tunneling No -Circular Undermining No -Exudate Amt Medium -Exudate Type Sanguineous -Wound Margin Flat & Intact -Granulation Amt Large (67-100%) -Granulation Quality Pale,[place],Red -Slough/Fibrin No -Texture (Jennifer-wound Skin Appearance) Assessed -Moisture (Jennifer-wound Skin Appearance) Assessed -Color (Jennifer-wound Skin Appearance) Assessed -Temperature (Jennifer-wound Skin No Abnormality Appearance) (Pt Warm) -Tenderness on Palpation (Jennifer-wound No Skin Appearance) -Ulcer Cleansing Soap and Water -Foul Odor after Cleansing No -Anesthetic Used 5% Lidocaine Gel Lower Limb Edema Present NA WC - Nurse 3 - General Ulcer D/C NN Start: 10/21/23 10:16 Freq: Status: Active Protocol: Activity Type Activity Date Activity User E-sign Co-sign Detail Recorded Client Recorded Date Recorded By Document 10/21/23 10:38 AK Desktop 10/21/23 10:39 AK 10/21/23 10:38 Wound Care Center Nurse 3 #3 Right Ankle -Ulcer Cleansing Soap and Water -Foul Odor after Cleansing No -Negative Pressure Wound Therapy N/A -Primary Dressing Applied C Hydrogel ($) -Primary Dressing Covered/Secured with Dry Gauze & Roll Gauze, Secured with Tape Right -Tubular Bandage Single Layer -Size of Tubigrip Used Size C -Size C ($) 1 Pain Scale: 0-10 Numeric Is Patient Pain Free? No WC - Visit Discharge Discharge Condition Stable Ambulatory Status Ambulatory Transportation Private Auto Medication Reconcilliation completed & No provided to patient/care provider Clinical Summary of Care Provided Yes Notes: pt verbalized understanding of new dressing change Assessment/Plan Assessment/Plan (1) Traumatic open wound of right lower leg: CODE(S): S81.801A - Unspecified open wound, right lower leg, initial encounter QUALIFIERS: Encounter type: initial encounter Qualified Code(s): S81.801A - Unspecified open wound, right lower leg, initial encounter (2) Non-pressure ulcer of right lower extremity with fat layer exposed: CODE(S): L97.912 - Non-pressure chronic ulcer of unspecified part of right lower leg with fat layer exposed (3) Laceration of left lower leg with complication: CODE(S): S81.812A - Laceration without foreign body, left lower leg, initial encounter QUALIFIERS: Encounter type: subsequent encounter Qualified Code(s): S81.812D - Laceration without foreign body, left lower leg, subsequent encounter (4) Chronic venous insufficiency: CODE(S): I87.2 - Venous insufficiency (chronic) (peripheral) (5) Varicose veins of both lower extremities with inflammation: CODE(S): I83.11 - Varicose veins of right lower extremity with inflammation; I83.12 - Varicose veins of left lower extremity with inflammation (6) Cellulitis of left lower limb: CODE(S): L03.116 - Cellulitis of left lower limb (7) Arthritis: CODE(S): M19.90 - Unspecified osteoarthritis, unspecified site (8) History of TIA (transient ischemic attack): CODE(S): Z86.73 - Personal history of transient ischemic attack (TIA), and cerebral infarction without residual deficits (9) Osteoporosis: CODE(S): M81.0 - Age-related osteoporosis without current pathological fracture (10) Hypertension: CODE(S): I10 - Essential (primary) hypertension QUALIFIERS: Hypertension type: essential hypertension Qualified Code(s): I10 - Essential (primary) hypertension (11) GERD (gastroesophageal reflux disease): CODE(S): K21.9 - Gastro-esophageal reflux disease without esophagitis QUALIFIERS: Esophagitis presence: esophagitis presence not specified Qualified Code(s): K21.9 - Gastro-esophageal reflux disease without esophagitis (12) Hypothyroid: CODE(S): E03.9 - Hypothyroidism, unspecified QUALIFIERS: Hypothyroidism type: unspecified Qualified Code(s): E03.9 - Hypothyroidism, unspecified (13) History of left knee replacement: CODE(S): Z96.652 - Presence of left artificial knee joint (14) Hyperlipidemia: CODE(S): E78.5 - Hyperlipidemia, unspecified (15) History of carpal tunnel release: CODE(S): Z98.890 - Other specified postprocedural states (16) History of right knee surgery: CODE(S): Z98.890 - Other specified postprocedural states (17) History of breast biopsy: CODE(S): Z98.890 - Other specified postprocedural states (18) History of total left knee replacement: CODE(S): Z96.652 - Presence of left artificial knee joint PLAN: Plan This is an 88-year-old female who is active and functional. She presented with a recent wound to the right pretibial surface, the result of trauma due to tripping over her cat. At the time of presentation, a devitalized flap of epidermis was noted loosely adherent to the surface of the wound, which was sharply excised. There is no sign of infection or cellulitis. We are to implement local wound care by means of collagen hydrogel which will be applied topically on a daily basis. This is to be covered with gauze. Patient has been instructed in the appropriate means of application. She is to continue compression to her lower extremities by means of Tubigrip's. The patient is to return in 1 week for reevaluation. The patient has been encouraged to optimize her nutritional intake. Review of the patient's recent laboratory results reveals no significant abnormalities, with total protein and albumin to be relatively normal. She is to remain active, and elevate her lower extremities as much as possible while sedentary. Total time: 25 minutes
[2023-11-04 10:35] VITALS: BP 172/98; PULSE 80; RESP 18; TEMP 36.1; BMI 22.8
--- NOTE | 2023-11-04 11:38 | HP.PCM_ITS ---
History of Present Illness Date of Service: 11/04/23 Chief Complaint: Laceration of the right pretibial surface History of Wound: This is an 88-year-old female who is active and functional. She presented today with an new, open wound on the right pretibial surface, which she sustained approximately 1 week prior to presentation. She tripped over the cat, sustaining trauma to the right pretibial region, resulting in an open wound. She has recently been treated at the [facility] for a chronic, non-healing wound on the left pretibial surface, the result of a traumatic injury approximately 3 weeks prior to presentation. As result of conservative treatment measures, the wound on the left pretibial surface has healed, the patient was last seen at this facility in September 2023. The patient is of normal body habitus. She is active. She sleeps on a flat mattress at night. She denies a history of thromboembolic disease. Recent laboratory studies were done on June 20, 2023, with results as follows: White blood count 7.4, hemoglobin 3.8, hematocrit 43.5, platelets 214,000, sodium 143, potassium 4.1, chloride 109, BUN 20, creatinine 1.04, glucose 94, calcium 9.1, total bilirubin 0.50, ALT 29, alkaline phosphatase 83, total protein 6.6, serum albumin 3.7. [facility] Medical History Arthritis Cellulitis of left lower limb Cervical myofascial strain Chronic venous insufficiency Contusion, nose Diarrhea Forehead abrasion History of cerebral aneurysm History of deep vein thrombosis History of patellar fracture History of pulmonary embolism History of TIA (transient ischemic attack) Hyperlipidemia Laceration of left hand Laceration of left lower leg with complication Laceration of right lower leg Microscopic colitis Non-pressure ulcer of right lower extremity with fat layer exposed Osteoporosis Right leg pain Skin tear of left lower leg without complication Small intestinal bacterial overgrowth Traumatic open wound of right lower leg Varicose veins of both lower extremities with inflammation Home Medications levothyroxine 75 mcg tablet 75 mcg PO DAILY thyroid 07/23/13 [History Last Taken 11/13/19] calcium carbonate 500 mg-vitamin D3 10 mcg (400 unit) tablet 1 ea PO DAILY supplement 02/10/14 [History Last Taken Unknown] cyanocobalamin (vitamin B-12) 500 mcg tablet 500 mcg PO DAILY@0800 supplement 02/10/14 [History Last Taken Unknown] hydroxychloroquine 200 mg tablet 300 mg PO DAILY arthritis 05/29/19 [History Last Taken Unknown] metoprolol succinate 25 mg tablet,extended release 24 hr 25 mg PO DAILY bp/heart 05/29/19 [History Last Taken Unknown] acetaminophen 325 mg tablet 650 mg (2 x 325 mg) PO Q6H PRN PRN Pain Score 1- 10/Temp > 100.7 F #100 tabs 11/15/19 [Rx Last Taken Unknown] colestipol 1 gram tablet 1 g PO BID diarrhea #180 tabs 11/14/22 [Rx Last Taken Unknown] PRAMIPEXOLE DIHYDROCHLORIDE 0.125 mg PO QHS PRN INSOMNIA 08/05/23 [History Last Taken Unknown] Allergy/AdvReac Type Severity Reaction Status Date / Time No Known Allergies Allergy Verified 08/05/23 09:21 Family History Father CVA (cerebral vascular accident) Mother CVA (cerebral vascular accident) Surgical History History of breast biopsy History of carpal tunnel release History of right knee surgery History of total left knee replacement Surgical History no surgical history Social History Smoking Status: Never smoker alcohol intake: current alcohol intake frequency: a few times a month Vital Signs Vital Signs Vital Signs: 11/04/23 10:35 Temperature 97.0 F L Temperature Source Temporal Pulse Rate 80 Respiratory Rate 18 Blood Pressure 172/98 H Blood Pressure Mean 122 Blood Pressure Source Monitor Blood Pressure Position Sitting Blood Pressure Location Left Arm Oxygen Delivery Method Room Air Weight Weight: 125 lb Body Mass Index (BMI) 22.8 Physical Exam Const alert, oriented x3, no apparent distress, average body habitus, no limitations, healthy appearing and well nourished General Appearance: cooperative, comfortable, well kempt and well developed Orientation / Consciousness: awake, oriented to person, oriented to place and oriented to time HEENT normocephalic, head/scalp atraumatic and hearing grossly normal bilaterally Head and Scalp: normal to inspection, normocephalic and atraumatic External Ear: external ears normal Eyes PERRL and EOMs intact bilaterally General Eye: normal appearance of both eyes Neck full ROM Resp normal respiratory effort, normal air movement, no retractions and no use of accessory muscles Effort and Inspection: able to speak in complete sentences and symmetric chest movement Extremity no calf tenderness General Extremity: Negative for clubbing or cyanosis Skin Wound Narrative: No significant swelling or edema are noted in the patient's lower extremities bilaterally. Numerous varicosities are noted in the lower extremities diffusely. Mild lipodermatosclerosis and hemosiderin staining is noted in the gaiter areas bilaterally. The patient's prior wound on the left pretibial surface remains completely healed. An open wound persists on the right pretibial surface, which is now smaller in size. There is no sign of infection or cellulitis. Dimensions are documented elsewhere. There is a moderate amount of bioburden. Neuro oriented x3, CN's II-XII intact bilaterally, moves all extremities and no focal motor deficits Sensorium / Orientation: awake, alert, oriented to person, oriented to place and oriented to time Psych Appearance: grossly normal and appropriate Attitude: calm Activity / Motor Behavior: appropriate eye contact Speech: normal speech Mood & Affect: euthymic mood Thought Process: normal thought process Thought Content: normal thought content Attention / Concentration: attention grossly intact Debridement Note Debridement Note Wound debrided: Right pretibial wound Laterality: Right Type of Debridement: Excisional debridement Anesthesia Used: 5% Lidocaine Gel Depth: Down to and including healthy tissue and in the subcutaneous layer Percentage of wound debrided: 100 Instrument Used: 5mm curette, Forceps and - (Scissors) Tissue Removed: Bioburden, nonviable tissue, and devitalized epidermis Severity: Fat Layer Exposed Amount of bleeding with debridement: Mild Bleeding Controlled with: Compression and gauze Patient tolerated procedure: Patient tolerated procedure well Post-Debridement Measurements and Additional Note: Post-Debridement Measurements/Treatment WC - Nurse 1 - General Ulcer Assessment Start: 10/21/23 10:16 Freq: Status: Active Protocol: BETHEL Activity Type Activity Date Activity User E-sign Co-sign Detail Recorded Client Recorded Date Recorded By Document 10/21/23 10:17 MT Desktop 10/21/23 10:21 MT Document 11/04/23 10:35 KW Desktop 11/04/23 10:40 KW 10/21/23 11/04/23 10:17 10:35 - Today's Visit Information Type of service Follow-up Visit (Physician/PROCESSOR INSPECTOR ) Arrival Mode Ambulatory Patient Identification Verified (Name & Yes ) Height and Weight Body Mass Index (BMI) 22.8 22.8 BMI Classification Normal Normal Vital Signs Temperature (97.8 F-99.1 F) 97.0 F L Temperature Source Temporal Pulse Rate (60-100) 80 Pulse Location Monitor Respiratory Rate (12-18) 18 Respiratory rate source Observation Oxygen Delivery Method Room Air Blood Pressure (90/60-120/80) 172/98 H Blood Pressure Mean 122 Source Monitor Position Sitting Blood Pressure Location Left Arm History Since Last Visit- (Skip if this is Patient's initial visit) Have you changed medications since your No last visit? Any new allergies or adverse reactions No Had a fall/change in ADL's that may No increase risk of falls Signs or symptoms of abuse and/or No neglect since last visit Have you been in the hospital since your No last visit? Has dressing in place as prescribed Yes Has compression in place as prescribed Yes Has offloadiing in place as prescribed No Experienced any changes in pain level or No management Left Footwear Regular Shoe Right Footwear Regular Shoe Pain Scale: 0-10 Numeric Is Patient Pain Free? Yes Yes - Nurse 1 - General Ulcer Measurement Start: 10/21/23 10:16 Freq: Status: Active Protocol: Activity Type Activity Date Activity User E-sign Co-sign Detail Recorded Client Recorded Date Recorded By Document 10/21/23 10:17 NV Desktop 10/21/23 10:21 MT Document 11/04/23 10:35 Desktop 11/04/23 10:40 KW 10/21/23 11/04/23 10:17 10:35 Wound Center Nurse 1 #3 Right Ankle -Current Size (cm) - Length 2.1 1.6 -Current Size (cm) - Width 1.8 1.5 -Current Size (cm) - Depth 0.1 0.1 -Total Square Cm 3.78 2.40 -Date of Last Picture (Recall this 10/21/23 field) -Photo Taken Yes -Tunneling No -Undermining/Tunneling No -Circular Undermining No -Exudate Amt Medium Small -Exudate Type Sanguineous Serosanguineous -Wound Margin Flat & Intact Distinct, Outline Attached -Granulation Amt Large (67-100%) Large (67-100%) -Granulation Quality Pale,[place],Red Red -Slough/Fibrin No -Texture (Jennifer-wound Skin Appearance) Assessed Assessed -Moisture (Jennifer-wound Skin Appearance) Assessed Assessed -Color (Jennifer-wound Skin Appearance) Assessed Assessed, Erythema -Temperature (Jennifer-wound Skin No Abnormality No Abnormality Appearance) (Pt Warm) (Pt Warm) -Tenderness on Palpation (Jennifer-wound No No Skin Appearance) -Ulcer Cleansing Soap and Water Rinsed/ Irrigated with Saline -Foul Odor after Cleansing No -Anesthetic Used 5% Lidocaine 5% Lidocaine Gel Gel Lower Limb Edema Present NA Right Calf (cm) 31.5 WC - Nurse 2 - General Ulcer CM Notes Start: 10/21/23 10:16 Freq: Status: Active Protocol: Activity Type Activity Date Activity User E-sign Co-sign Detail Recorded Client Recorded Date Recorded By Document 10/21/23 11:08 PL [id number] 10/21/23 11:09 PL 10/21/23 11:08 Wound Center Nurse 2 #3 Right Ankle -Time 10:25 -Correct Patient Yes -Correct Side, Site, Position Yes -Correct Procedure Yes -Procedure Performed Yes -Type of Procedure Debridement -Clinical Debridement Subcutaneous -Tissue Removed Subcutaneous -Post Debridement (cm) - Length 2.1 -Post Debridement (cm) - Width 1.8 -Post Debridement (cm) - Depth 0.1 -Total Square (Post) (cm) 3.78 -Area of Debridement (cm) - Length 2.1 -Area of Debridement (cm) - Width 1.8 -Total Square (Area) (cm) 3.78 -Tunneling No -Undermining/Tunneling No -Circular Undermining No -Wound/Ulcer Outcome Not Healed -Ulcer Cleansing Rinsed/ Irrigated with Saline -Foul Odor after Cleansing No -Bioengineered Tissue No -Bleeding Controlled with Pressure -Treatment Response Procedure Tolerated Well -Debridement - Subq, 1st 20sq cm Yes Pain Scale: 0-10 Numeric Is Patient Pain Free? Yes LEDY - Nurse 3 - General Ulcer D/C NN Start: 10/21/23 10:16 Freq: Status: Active Protocol: Activity Type Activity Date Activity User E-sign Co-sign Detail Recorded Client Recorded Date Recorded By Document 10/21/23 10:38 MT Desktop 10/21/23 10:39 MT Document 11/04/23 11:21 RB Desktop 11/04/23 11:22 RB 10/21/23 11/04/23 10:38 11:21 Wound Care Center Nurse 3 #3 Right Ankle -Ulcer Cleansing Soap and Water Rinsed/ Irrigated with Saline -Foul Odor after Cleansing No -Negative Pressure Wound Therapy N/A -Primary Dressing Applied C Hydrogel ($) -Other Dressing hydrogel -Primary Dressing Covered/Secured with Dry Gauze & Dry Gauze,Dry Roll Gauze, Gauze & Roll Secured with Gauze,Secured Tape with Tape Right -Tubular Bandage Single Layer Single Layer -Size of Tubigrip Used Size C Size C -Size C ($) 1 1 Treatment Response Procedure Tolerated Well Pain Scale: 0-10 Numeric Is Patient Pain Free? No Yes Teaching: Wound Center Compression Wraps & Stockings -Person Taught Patient -Teaching Method Discussion, Demonstration -Response to teaching Verbalize understanding WC - Visit Discharge Discharge Condition Stable Stable Ambulatory Status Ambulatory Ambulatory Transportation Private Auto Private Auto Medication Reconcilliation completed & No No provided to patient/care provider Clinical Summary of Care Provided Yes Yes Notes: pt verbalized understanding of new dressing change Assessment/Plan Assessment/Plan (1) Traumatic open wound of right lower leg: CODE(S): S81.801A - Unspecified open wound, right lower leg, initial encounter QUALIFIERS: Encounter type: subsequent encounter Qualified Code(s): S81.801D - Unspecified open wound, right lower leg, subsequent encounter (2) Non-pressure ulcer of right lower extremity with fat layer exposed: CODE(S): L97.912 - Non-pressure chronic ulcer of unspecified part of right lower leg with fat layer exposed (3) Laceration of left lower leg with complication: CODE(S): S81.812A - Laceration without foreign body, left lower leg, initial encounter QUALIFIERS: Encounter type: subsequent encounter Qualified Code(s): S81.812D - Laceration without foreign body, left lower leg, subsequent encounter (4) Chronic venous insufficiency: CODE(S): I87.2 - Venous insufficiency (chronic) (peripheral) (5) Varicose veins of both lower extremities with inflammation: CODE(S): I83.11 - Varicose veins of right lower extremity with inflammation; I83.12 - Varicose veins of left lower extremity with inflammation (6) Cellulitis of left lower limb: CODE(S): L03.116 - Cellulitis of left lower limb (7) Arthritis: CODE(S): M19.90 - Unspecified osteoarthritis, unspecified site (8) History of TIA (transient ischemic attack): CODE(S): Z86.73 - Personal history of transient ischemic attack (TIA), and cerebral infarction without residual deficits (9) Osteoporosis: CODE(S): M81.0 - Age-related osteoporosis without current pathological fracture (10) Hypertension: CODE(S): I10 - Essential (primary) hypertension QUALIFIERS: Hypertension type: essential hypertension Qualified Code(s): I10 - Essential (primary) hypertension (11) GERD (gastroesophageal reflux disease): CODE(S): K21.9 - Gastro-esophageal reflux disease without esophagitis QUALIFIERS: Esophagitis presence: esophagitis presence not specified Qualified Code(s): K21.9 - Gastro-esophageal reflux disease without esophagitis (12) Hypothyroid: CODE(S): E03.9 - Hypothyroidism, unspecified QUALIFIERS: Hypothyroidism type: unspecified Qualified Code(s): E03.9 - Hypothyroidism, unspecified (13) History of left knee replacement: CODE(S): Z96.652 - Presence of left artificial knee joint (14) Hyperlipidemia: CODE(S): E78.5 - Hyperlipidemia, unspecified (15) History of carpal tunnel release: CODE(S): Z98.890 - Other specified postprocedural states (16) History of right knee surgery: CODE(S): Z98.890 - Other specified postprocedural states (17) History of breast biopsy: CODE(S): Z98.890 - Other specified postprocedural states (18) History of total left knee replacement: CODE(S): Z96.652 - Presence of left artificial knee joint PLAN: Plan This is an 88-year-old female who is active and functional. She presented with a recent wound to the right pretibial surface, the result of trauma due to tripping over her cat. At the time of presentation, a devitalized flap of epidermis was noted loosely adherent to the surface of the wound, which was sharply excised. There is no sign of infection or cellulitis. We are to continue local wound care by means of collagen hydrogel which will be applied topically on a daily basis. This is to be covered with gauze. Patient has been instructed in the appropriate means of application. She is to continue compression to her lower extremities by means of Tubigrip's. The patient is to return in 1 week for reevaluation. The patient has been encouraged to optimize her nutritional intake. Review of the patient's recent laboratory results reveals no significant abnormalities, with total protein and albumin to be relatively normal. She is to remain active, and elevate her lower extremities as much as possible while sedentary. Preauthorization for the use of an EpiFix allograft will be sought. Total time: 26 minutes
== END 2023-11-05 23:59 | disposition home or self-care (01) ==
LOC: WC 10:30
PROVIDERS: PCP Family Medicine Geriatric Medicine; Referring Provider Family Medicine Geriatric Medicine; Visit Provider Surgery
DX: I83.218 Varicose veins of right lower extremity with both ulcer of other part of lower extremity and inflammation (principal); L97.812 Non-pressure chronic ulcer of other part of right lower leg with fat layer exposed; K21.9 Gastro-esophageal reflux disease without esophagitis; I10 Essential (primary) hypertension; M81.0 Age-related osteoporosis without current pathological fracture; E78.5 Hyperlipidemia, unspecified; E03.9 Hypothyroidism, unspecified; M19.90 Unspecified osteoarthritis, unspecified site; I83.12 Varicose veins of left lower extremity with inflammation; Z79.899 Other long term (current) drug therapy; Z79.890 Hormone replacement therapy; S81.801D Unspecified open wound, right lower leg, subsequent encounter; X58.XXXD Exposure to other specified factors, subsequent encounter
CPT/HCPCS: 11042; 99213; G0463

== ENCOUNTER 2023-11-18 08:45 | Outpatient (RCR) | payer MEDICARE, SELFPAY ==
[2023-11-06 00:48] VITALS: BP 172/98; PULSE 80; RESP 18; TEMP 36.1; BMI 22.8
[2023-11-11 08:54] VITALS: BP 183/109; PULSE 84; RESP 18; TEMP 36; BMI 22.8
--- NOTE | 2023-11-11 09:27 | PCM.WC.HP ---
History of Present Illness Date of Service: 11/11/23 Chief Complaint: Laceration of the right pretibial surface History of Wound: This is an 88-year-old female who is active and functional. She presented today with an new, open wound on the right pretibial surface, which she sustained approximately 1 week prior to presentation. She tripped over the cat, sustaining trauma to the right pretibial region, resulting in an open wound. She has recently been treated at the [facility] for a chronic, non-healing wound on the left pretibial surface, the result of a traumatic injury approximately 3 weeks prior to presentation. As result of conservative treatment measures, the wound on the left pretibial surface has healed, the patient was last seen at this facility in September 2023. The patient is of normal body habitus. She is active. She sleeps on a flat mattress at night. She denies a history of thromboembolic disease. Recent laboratory studies were done on June 20, 2023, with results as follows: White blood count 7.4, hemoglobin 3.8, hematocrit 43.5, platelets 214,000, sodium 143, potassium 4.1, chloride 109, BUN 20, creatinine 1.04, glucose 94, calcium 9.1, total bilirubin 0.50, ALT 29, alkaline phosphatase 83, total protein 6.6, serum albumin 3.7. [facility] Medical History Arthritis Cellulitis of left lower limb Cervical myofascial strain Chronic venous insufficiency Contusion, nose Diarrhea Forehead abrasion History of cerebral aneurysm History of deep vein thrombosis History of patellar fracture History of pulmonary embolism History of TIA (transient ischemic attack) Hyperlipidemia Laceration of left hand Laceration of left lower leg with complication Laceration of right lower leg Microscopic colitis Non-pressure ulcer of right lower extremity with fat layer exposed Osteoporosis Right leg pain Skin tear of left lower leg without complication Small intestinal bacterial overgrowth Traumatic open wound of right lower leg Varicose veins of both lower extremities with inflammation Home Medications levothyroxine 75 mcg tablet 75 mcg PO DAILY thyroid 07/23/13 [History Last Taken 11/13/19] calcium carbonate 500 mg-vitamin D3 10 mcg (400 unit) tablet 1 ea PO DAILY supplement 02/10/14 [History Last Taken Unknown] cyanocobalamin (vitamin B-12) 500 mcg tablet 500 mcg PO DAILY@0800 supplement 02/10/14 [History Last Taken Unknown] hydroxychloroquine 200 mg tablet 300 mg PO DAILY arthritis 05/29/19 [History Last Taken Unknown] metoprolol succinate 25 mg tablet,extended release 24 hr 25 mg PO DAILY bp/heart 05/29/19 [History Last Taken Unknown] acetaminophen 325 mg tablet 650 mg (2 x 325 mg) PO Q6H PRN PRN Pain Score 1-10/Temp > 100.7 F #100 tabs 11/15/19 [Rx Last Taken Unknown] colestipol 1 gram tablet 1 g PO BID diarrhea #180 tabs 11/14/22 [Rx Last Taken Unknown] PRAMIPEXOLE DIHYDROCHLORIDE 0.125 mg PO QHS PRN INSOMNIA 08/05/23 [History Last Taken Unknown] Allergy/AdvReac Type Severity Reaction Status Date / Time No Known Allergies Allergy Verified 08/05/23 09:21 Family History Father CVA (cerebral vascular accident) Mother CVA (cerebral vascular accident) Surgical History History of breast biopsy History of carpal tunnel release History of right knee surgery History of total left knee replacement Surgical History no surgical history Social History Smoking Status: Never smoker alcohol intake: current alcohol intake frequency: a few times a month Vital Signs Vital Signs Vital Signs: 11/11/23 08:54 Temperature 96.8 F L Temperature Source Temporal Pulse Rate 84 Respiratory Rate 18 Blood Pressure 183/109 H Blood Pressure Mean 133 Blood Pressure Source Monitor Blood Pressure Position Semi-Fowlers Blood Pressure Location Right Arm Oxygen Delivery Method Room Air Weight Weight: 125 lb Body Mass Index (BMI) 22.8 Physical Exam Const alert, oriented x3, no apparent distress, average body habitus, no limitations, healthy appearing and well nourished General Appearance: cooperative, comfortable, well kempt and well developed Orientation / Consciousness: awake, oriented to person, oriented to place and oriented to time HEENT normocephalic, head/scalp atraumatic and hearing grossly normal bilaterally Head and Scalp: normal to inspection, normocephalic and atraumatic External Ear: external ears normal Eyes PERRL and EOMs intact bilaterally General Eye: normal appearance of both eyes Neck full ROM Resp normal respiratory effort, normal air movement, no retractions and no use of accessory muscles Effort and Inspection: able to speak in complete sentences and symmetric chest movement Extremity no calf tenderness General Extremity: Negative for clubbing or cyanosis Skin Wound Narrative: No significant swelling or edema are noted in the patient's lower extremities bilaterally. Numerous varicosities are noted in the lower extremities diffusely. Mild lipodermatosclerosis and hemosiderin staining is noted in the gaiter areas bilaterally. The patient's prior wound on the left pretibial surface remains completely healed. An open wound persists on the right pretibial surface, which is now smaller in size. There is no sign of infection or cellulitis. Dimensions are documented elsewhere. There is a moderate amount of bioburden. Neuro oriented x3, CN's II-XII intact bilaterally, moves all extremities and no focal motor deficits Sensorium / Orientation: awake, alert, oriented to person, oriented to place and oriented to time Psych Appearance: grossly normal and appropriate Attitude: calm Activity / Motor Behavior: appropriate eye contact Speech: normal speech Mood & Affect: euthymic mood Thought Process: normal thought process Thought Content: normal thought content Attention / Concentration: attention grossly intact Debridement Note Debridement Note Wound debrided: Right pretibial wound Laterality: Right Type of Debridement: Excisional debridement Anesthesia Used: 5% Lidocaine Gel Depth: Down to and including healthy tissue and in the subcutaneous layer Percentage of wound debrided: 100 Instrument Used: 5mm curette, Forceps and - (Scissors) Tissue Removed: Bioburden, nonviable tissue, and devitalized epidermis Severity: Fat Layer Exposed Amount of bleeding with debridement: Mild Bleeding Controlled with: Compression and gauze Patient tolerated procedure: Patient tolerated procedure well Post-Debridement Measurements and Additional Note: Post-Debridement Measurements/Treatment LEDY - Nurse 1 - General Ulcer Assessment Start: 11/11/23 08:54 Freq: Status: Active Protocol: BETHEL Activity Type Activity Date Activity User E-sign Co-sign Detail Recorded Client Recorded Date Recorded By Document 11/11/23 08:54 KW Desktop 11/11/23 09:01 KW 11/11/23 08:54 - Today's Visit Information Type of service Follow-up Visit (Physician/[employer] ) Arrival Mode Ambulatory Patient Identification Verified (Name & Yes ) Height and Weight Body Mass Index (BMI) 22.8 BMI Classification Normal Vital Signs Temperature (97.8 F-99.1 F) 96.8 F L Temperature Source Temporal Pulse Rate (60-100) 84 Pulse Location Monitor Respiratory Rate (12-18) 18 Respiratory rate source Observation Oxygen Delivery Method Room Air Blood Pressure (90/60-120/80) 183/109 H Blood Pressure Mean 133 Source Monitor Position Semi-Fowlers Blood Pressure Location Right Arm History Since Last Visit- (Skip if this is Patient's initial visit) Have you changed medications since your No last visit? Any new allergies or adverse reactions No Had a fall/change in ADL's that may No increase risk of falls Signs or symptoms of abuse and/or No neglect since last visit Have you been in the hospital since your No last visit? Has dressing in place as prescribed Yes Has compression in place as prescribed No Has offloadiing in place as prescribed No Experienced any changes in pain level or No management Left Footwear Regular Shoe Right Footwear Regular Shoe Pain Scale: 0-10 Numeric Is Patient Pain Free? Yes WC - Nurse 1 - General Ulcer Measurement Start: 11/11/23 08:54 Freq: Status: Active Protocol: Activity Type Activity Date Activity User E-sign Co-sign Detail Recorded Client Recorded Date Recorded By Document 11/11/23 08:54 KW Desktop 11/11/23 09:01 KW 11/11/23 08:54 Wound Center Nurse 1 #3 Right Ankle -Current Size (cm) - Length 1.5 -Current Size (cm) - Width 1.7 -Current Size (cm) - Depth 0.1 -Total Square Cm 2.55 -Exudate Amt Small -Exudate Type Serosanguineous -Wound Margin Distinct, Outline Attached -Granulation Amt Large (67-100%) -Granulation Quality Red -Texture (Jennifer-wound Skin Appearance) Assessed -Moisture (Jennifer-wound Skin Appearance) Assessed -Color (Jennifer-wound Skin Appearance) Assessed -Temperature (Jennifer-wound Skin No Abnormality Appearance) (Pt Warm) -Ulcer Cleansing Rinsed/ Irrigated with Saline -Anesthetic Used 5% Lidocaine Gel Assessment/Plan Assessment/Plan (1) Traumatic open wound of right lower leg: CODE(S): S81.801A - Unspecified open wound, right lower leg, initial encounter QUALIFIERS: Encounter type: subsequent encounter Qualified Code(s): S81.801D - Unspecified open wound, right lower leg, subsequent encounter (2) Non-pressure ulcer of right lower extremity with fat layer exposed: CODE(S): L97.912 - Non-pressure chronic ulcer of unspecified part of right lower leg with fat layer exposed (3) Laceration of left lower leg with complication: CODE(S): S81.812A - Laceration without foreign body, left lower leg, initial encounter QUALIFIERS: Encounter type: subsequent encounter Qualified Code(s): S81.812D - Laceration without foreign body, left lower leg, subsequent encounter (4) Chronic venous insufficiency: CODE(S): I87.2 - Venous insufficiency (chronic) (peripheral) (5) Varicose veins of both lower extremities with inflammation: CODE(S): I83.11 - Varicose veins of right lower extremity with inflammation; I83.12 - Varicose veins of left lower extremity with inflammation (6) Cellulitis of left lower limb: CODE(S): L03.116 - Cellulitis of left lower limb (7) Arthritis: CODE(S): M19.90 - Unspecified osteoarthritis, unspecified site (8) History of TIA (transient ischemic attack): CODE(S): Z86.73 - Personal history of transient ischemic attack (TIA), and cerebral infarction without residual deficits (9) Osteoporosis: CODE(S): M81.0 - Age-related osteoporosis without current pathological fracture (10) Hypertension: CODE(S): I10 - Essential (primary) hypertension QUALIFIERS: Hypertension type: essential hypertension Qualified Code(s): I10 - Essential (primary) hypertension (11) GERD (gastroesophageal reflux disease): CODE(S): K21.9 - Gastro-esophageal reflux disease without esophagitis QUALIFIERS: Esophagitis presence: esophagitis presence not specified Qualified Code(s): K21.9 - Gastro-esophageal reflux disease without esophagitis (12) Hypothyroid: CODE(S): E03.9 - Hypothyroidism, unspecified QUALIFIERS: Hypothyroidism type: unspecified Qualified Code(s): E03.9 - Hypothyroidism, unspecified (13) History of left knee replacement: CODE(S): Z96.652 - Presence of left artificial knee joint (14) Hyperlipidemia: CODE(S): E78.5 - Hyperlipidemia, unspecified (15) History of carpal tunnel release: CODE(S): Z98.890 - Other specified postprocedural states (16) History of right knee surgery: CODE(S): Z98.890 - Other specified postprocedural states (17) History of breast biopsy: CODE(S): Z98.890 - Other specified postprocedural states (18) History of total left knee replacement: CODE(S): Z96.652 - Presence of left artificial knee joint PLAN: Plan This is an 88-year-old female who is active and functional. She presented with a recent wound to the right pretibial surface, the result of trauma due to tripping over her cat. At the time of presentation, a devitalized flap of epidermis was noted loosely adherent to the surface of the wound, which was sharply excised. There is no sign of infection or cellulitis. The wound continues to diminish in size. We are to continue local wound care by means of collagen hydrogel which will be applied topically on a daily basis. This is to be covered with gauze. Patient has been instructed in the appropriate means of application. She is to continue compression to her lower extremities by means of Tubigrip's. The patient is to return in 1 week for reevaluation. The patient has been encouraged to optimize her nutritional intake. Review of the patient's recent laboratory results reveals no significant abnormalities, with total protein and albumin to be relatively normal. She is to remain active, and elevate her lower extremities as much as possible while sedentary. Preauthorization for the use of an EpiFix allograft will be sought, though may not be necessary. Total time: 24 minutes
[2023-11-18 08:52] VITALS: BP 172/91; PULSE 71; RESP 18; TEMP 36; BMI 22.8
--- NOTE | 2023-11-18 09:16 | PCM.WC.HP ---
History of Present Illness Date of Service: 11/18/23 Chief Complaint: Laceration of the right pretibial surface History of Wound: This is an 88-year-old female who is active and functional. She presented today with an new, open wound on the right pretibial surface, which she sustained approximately 1 week prior to presentation. She tripped over the cat, sustaining trauma to the right pretibial region, resulting in an open wound. She has recently been treated at the [facility] for a chronic, non-healing wound on the left pretibial surface, the result of a traumatic injury approximately 3 weeks prior to presentation. As result of conservative treatment measures, the wound on the left pretibial surface has healed, the patient was last seen at this facility in September 2023. The patient is of normal body habitus. She is active. She sleeps on a flat mattress at night. She denies a history of thromboembolic disease. Recent laboratory studies were done on June 20, 2023, with results as follows: White blood count 7.4, hemoglobin 3.8, hematocrit 43.5, platelets 214,000, sodium 143, potassium 4.1, chloride 109, BUN 20, creatinine 1.04, glucose 94, calcium 9.1, total bilirubin 0.50, ALT 29, alkaline phosphatase 83, total protein 6.6, serum albumin 3.7. 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 Osteoporosis Right leg pain Skin tear of left lower leg without complication Small intestinal bacterial overgrowth Traumatic open wound of right lower leg Varicose veins of both lower extremities with inflammation Home Medications levothyroxine 75 mcg tablet 75 mcg PO DAILY thyroid 07/23/13 [History Last Taken 11/13/19] calcium carbonate 500 mg-vitamin D3 10 mcg (400 unit) tablet 1 ea PO DAILY supplement 02/10/14 [History Last Taken Unknown] cyanocobalamin (vitamin B-12) 500 mcg tablet 500 mcg PO DAILY@0800 supplement 02/10/14 [History Last Taken Unknown] hydroxychloroquine 200 mg tablet 300 mg PO DAILY arthritis 05/29/19 [History Last Taken Unknown] metoprolol succinate 25 mg tablet,extended release 24 hr 25 mg PO DAILY bp/heart 05/29/19 [History Last Taken Unknown] acetaminophen 325 mg tablet 650 mg (2 x 325 mg) PO Q6H PRN PRN Pain Score 1-10/Temp > 100.7 F #100 tabs 11/15/19 [Rx Last Taken Unknown] colestipol 1 gram tablet 1 g PO BID diarrhea #180 tabs 11/14/22 [Rx Last Taken Unknown] PRAMIPEXOLE DIHYDROCHLORIDE 0.125 mg PO QHS PRN INSOMNIA 08/05/23 [History Last Taken Unknown] Allergy/AdvReac Type Severity Reaction Status Date / Time No Known Allergies Allergy Verified 08/05/23 09:21 Family History Father CVA (cerebral vascular accident) Mother CVA (cerebral vascular accident) Surgical History History of breast biopsy History of carpal tunnel release History of right knee surgery History of total left knee replacement Surgical History no surgical history Social History Smoking Status: Never smoker alcohol intake: current alcohol intake frequency: a few times a month Vital Signs Vital Signs Vital Signs: 11/18/23 08:52 Temperature 96.8 F L Temperature Source Temporal Pulse Rate 71 Respiratory Rate 18 Blood Pressure 172/91 H Blood Pressure Mean 118 Blood Pressure Source Monitor Blood Pressure Position Semi-Fowlers Blood Pressure Location Left Arm Oxygen Delivery Method Room Air Weight Weight: 125 lb Body Mass Index (BMI) 22.8 Physical Exam Const alert, oriented x3, no apparent distress, average body habitus, no limitations, healthy appearing and well nourished General Appearance: cooperative, comfortable, well kempt and well developed Orientation / Consciousness: awake, oriented to person, oriented to place and oriented to time HEENT normocephalic, head/scalp atraumatic and hearing grossly normal bilaterally Head and Scalp: normal to inspection, normocephalic and atraumatic External Ear: external ears normal Eyes PERRL and EOMs intact bilaterally General Eye: normal appearance of both eyes Neck full ROM Resp normal respiratory effort, normal air movement, no retractions and no use of accessory muscles Effort and Inspection: able to speak in complete sentences and symmetric chest movement Extremity no calf tenderness General Extremity: Negative for clubbing or cyanosis Skin Wound Narrative: No significant swelling or edema are noted in the patient's lower extremities bilaterally. Numerous varicosities are noted in the lower extremities diffusely. Mild lipodermatosclerosis and hemosiderin staining is noted in the gaiter areas bilaterally. The patient's prior wound on the left pretibial surface remains completely healed. An open wound persists on the right pretibial surface, which is now smaller in size, and looks to be now largely epithelialized. There is no sign of infection or cellulitis. Neuro oriented x3, CN's II-XII intact bilaterally, moves all extremities and no focal motor deficits Sensorium / Orientation: awake, alert, oriented to person, oriented to place and oriented to time Psych Appearance: grossly normal and appropriate Attitude: calm Activity / Motor Behavior: appropriate eye contact Speech: normal speech Mood & Affect: euthymic mood Thought Process: normal thought process Thought Content: normal thought content Attention / Concentration: attention grossly intact Debridement Note Debridement Note No debridement was completed: No debridement was completed today (The patient's right pretibial wound appears to be largely epithelialized, and was left undisturbed today.) Post-Debridement Measurements and Additional Note: Post-Debridement Measurements/Treatment WC - Nurse 1 - General Ulcer Assessment Start: 11/11/23 08:54 Freq: Status: Active Protocol: LEDY.CARL Activity Type Activity Date Activity User E-sign Co-sign Detail Recorded Client Recorded Date Recorded By Document 11/11/23 08:54 KW Desktop 11/11/23 09:01 KW Document 11/18/23 08:52 KW Desktop 11/18/23 09:00 KW 11/11/23 11/18/23 08:54 08:52 - Today's Visit Information Type of service Follow-up Visit Follow-up Visit (Physician/BLASTING CONTRACT MAN (Physician/BLASTING CONTRACT MAN ) ) Arrival Mode Ambulatory Ambulatory Patient Identification Verified (Name & Yes Yes ) Height and Weight Body Mass Index (BMI) 22.8 22.8 BMI Classification Normal Normal Vital Signs Temperature (97.8 F-99.1 F) 96.8 F L 96.8 F L Temperature Source Temporal Temporal Pulse Rate (60-100) 84 71 Pulse Location Monitor Monitor Respiratory Rate (12-18) 18 18 Respiratory rate source Observation Observation Oxygen Delivery Method Room Air Room Air Blood Pressure (90/60-120/80) 183/109 H 172/91 H Blood Pressure Mean 133 118 Source Monitor Monitor Position Semi-Fowlers Semi-Fowlers Blood Pressure Location Right Arm Left Arm History Since Last Visit- (Skip if this is Patient's initial visit) Have you changed medications since your No No last visit? Any new allergies or adverse reactions No No Had a fall/change in ADL's that may No No increase risk of falls Signs or symptoms of abuse and/or No No neglect since last visit Have you been in the hospital since your No No last visit? Has dressing in place as prescribed Yes Yes Has compression in place as prescribed No N/A Has offloadiing in place as prescribed No No Experienced any changes in pain level or No No management Left Footwear Regular Shoe Regular Shoe Right Footwear Regular Shoe Regular Shoe Pain Scale: 0-10 Numeric Is Patient Pain Free? Yes Yes WC - Nurse 1 - General Ulcer Measurement Start: 11/11/23 08:54 Freq: Status: Active Protocol: Activity Type Activity Date Activity User E-sign Co-sign Detail Recorded Client Recorded Date Recorded By Document 11/11/23 08:54 KW Desktop 11/11/23 09:01 KW Document 11/18/23 08:52 KW Desktop 11/18/23 09:00 KW 11/11/23 11/18/23 08:54 08:52 Wound Center Nurse 1 #3 Right Ankle -Current Size (cm) - Length 1.5 1.1 -Current Size (cm) - Width 1.7 0.7 -Current Size (cm) - Depth 0.1 0.1 -Total Square Cm 2.55 0.77 -Date of Last Picture (Recall this 11/18/23 field) -Photo Taken Yes -Exudate Amt Small None Present -Exudate Type Serosanguineous -Wound Margin Distinct, Distinct, Outline Outline Attached Attached -Granulation Amt Large (67-100%) -Granulation Quality Red -Texture (Jennifer-wound Skin Appearance) Assessed Callus, Localized Edema -Moisture (Jennifer-wound Skin Appearance) Assessed Assessed -Color (Jennifer-wound Skin Appearance) Assessed Assessed, Erythema -Temperature (Jennifer-wound Skin No Abnormality No Abnormality Appearance) (Pt Warm) (Pt Warm) -Tenderness on Palpation (Jennifer-wound No Skin Appearance) -Ulcer Cleansing Rinsed/ Rinsed/ Irrigated with Irrigated with Saline Saline -Anesthetic Used 5% Lidocaine 5% Lidocaine Gel Gel -Wound Comment(s) scabbed ulcer WC - Nurse 2 - General Ulcer CM Notes Start: 11/11/23 08:54 Freq: Status: Active Protocol: Activity Type Activity Date Activity User E-sign Co-sign Detail Recorded Client Recorded Date Recorded By Document 11/11/23 11:44 PL [id number] 11/11/23 11:45 PL 11/11/23 11:44 Wound Center Nurse 2 -Time 09:09 -Correct Patient Yes -Correct Side, Site, Position Yes -Correct Procedure Yes -Procedure Performed Yes -Type of Procedure Debridement -Clinical Debridement Subcutaneous -Tissue Removed Subcutaneous -Post Debridement (cm) - Length 1.5 -Post Debridement (cm) - Width 1.7 -Post Debridement (cm) - Depth 0.1 -Total Square (Post) (cm) 2.55 -Area of Debridement (cm) - Length 1.5 -Area of Debridement (cm) - Width 1.7 -Total Square (Area) (cm) 2.55 -Tunneling No -Undermining/Tunneling No -Circular Undermining No -Wound/Ulcer Outcome Not Healed -Ulcer Cleansing Rinsed/ Irrigated with Saline -Foul Odor after Cleansing No -Bioengineered Tissue No -Bleeding Controlled with Pressure -Treatment Response Procedure Tolerated Well -Debridement - Subq, 1st 20sq cm Yes Pain Scale: 0-10 Numeric Is Patient Pain Free? Yes - Nurse 3 - General Ulcer D/C NN Start: 11/11/23 08:54 Freq: Status: Active Protocol: Activity Type Activity Date Activity User E-sign Co-sign Detail Recorded Client Recorded Date Recorded By Document 11/11/23 11:45 PL [id number] 11/11/23 11:46 PL 11/11/23 11:45 Wound Care Center Nurse 3 #3 Right Ankle -Ulcer Cleansing Rinsed/ Irrigated with Saline -Foul Odor after Cleansing No -Primary Dressing Applied Mepilex Border -Other Dressing Hydrogel -Mepilex Border 1 Pain Scale: 0-10 Numeric Is Patient Pain Free? Yes WC - Visit Discharge Discharge Condition Stable Ambulatory Status Ambulatory Transportation Private Auto Assessment/Plan Assessment/Plan (1) Traumatic open wound of right lower leg: CODE(S): S81.801A - Unspecified open wound, right lower leg, initial encounter QUALIFIERS: Encounter type: subsequent encounter Qualified Code(s): S81.801D - Unspecified open wound, right lower leg, subsequent encounter (2) Non-pressure ulcer of right lower extremity with fat layer exposed: CODE(S): L97.912 - Non-pressure chronic ulcer of unspecified part of right lower leg with fat layer exposed (3) Laceration of left lower leg with complication: CODE(S): S81.812A - Laceration without foreign body, left lower leg, initial encounter QUALIFIERS: Encounter type: subsequent encounter Qualified Code(s): S81.812D - Laceration without foreign body, left lower leg, subsequent encounter (4) Chronic venous insufficiency: CODE(S): I87.2 - Venous insufficiency (chronic) (peripheral) (5) Varicose veins of both lower extremities with inflammation: CODE(S): I83.11 - Varicose veins of right lower extremity with inflammation; I83.12 - Varicose veins of left lower extremity with inflammation (6) Cellulitis of left lower limb: CODE(S): L03.116 - Cellulitis of left lower limb (7) Arthritis: CODE(S): M19.90 - Unspecified osteoarthritis, unspecified site (8) History of TIA (transient ischemic attack): CODE(S): Z86.73 - Personal history of transient ischemic attack (TIA), and cerebral infarction without residual deficits (9) Osteoporosis: CODE(S): M81.0 - Age-related osteoporosis without current pathological fracture (10) Hypertension: CODE(S): I10 - Essential (primary) hypertension QUALIFIERS: Hypertension type: essential hypertension Qualified Code(s): I10 - Essential (primary) hypertension (11) GERD (gastroesophageal reflux disease): CODE(S): K21.9 - Gastro-esophageal reflux disease without esophagitis QUALIFIERS: Esophagitis presence: esophagitis presence not specified Qualified Code(s): K21.9 - Gastro-esophageal reflux disease without esophagitis (12) Hypothyroid: CODE(S): E03.9 - Hypothyroidism, unspecified QUALIFIERS: Hypothyroidism type: unspecified Qualified Code(s): E03.9 - Hypothyroidism, unspecified (13) History of left knee replacement: CODE(S): Z96.652 - Presence of left artificial knee joint (14) Hyperlipidemia: CODE(S): E78.5 - Hyperlipidemia, unspecified (15) History of carpal tunnel release: CODE(S): Z98.890 - Other specified postprocedural states (16) History of right knee surgery: CODE(S): Z98.890 - Other specified postprocedural states (17) History of breast biopsy: CODE(S): Z98.890 - Other specified postprocedural states (18) History of total left knee replacement: CODE(S): Z96.652 - Presence of left artificial knee joint PLAN: Plan This is an 88-year-old female who is active and functional. She presented with a recent wound to the right pretibial surface, the result of trauma due to tripping over her cat. At the time of presentation, a devitalized flap of epidermis was noted loosely adherent to the surface of the wound, which was sharply excised. There is no sign of infection or cellulitis. The wound continues to diminish in size, and is now largely epithelialized. As result, no debridement was performed today. We are to continue local wound care by means of collagen hydrogel which will be applied topically on a daily basis. This is to be covered with gauze. Patient has been instructed in the appropriate means of application. She is to continue compression to her lower extremities by means of Tubigrip's, and has been provided a prescription for graduated compression stockings of 15 to 20 mmHg compression. She is to obtain the stockings, and wear on a daily basis. The patient is to return in 2 weeks for reevaluation. The patient has been encouraged to optimize her nutritional intake. Review of the patient's recent laboratory results reveals no significant abnormalities, with total protein and albumin to be relatively normal. She is to remain active, and elevate her lower extremities as much as possible while sedentary. It is anticipated that the patient's wound will be healed at the time of her next follow-up visit. Total time: 22 minutes
== END 2023-12-04 23:59 | disposition home or self-care (01) ==
LOC: WC 08:45
PROVIDERS: PCP Family Medicine Geriatric Medicine; Referring Provider Family Medicine Geriatric Medicine; Visit Provider Surgery
DX: I83.218 Varicose veins of right lower extremity with both ulcer of other part of lower extremity and inflammation (principal); L97.812 Non-pressure chronic ulcer of other part of right lower leg with fat layer exposed; L03.116 Cellulitis of left lower limb; E78.5 Hyperlipidemia, unspecified; I10 Essential (primary) hypertension; M81.0 Age-related osteoporosis without current pathological fracture; K21.9 Gastro-esophageal reflux disease without esophagitis; E03.9 Hypothyroidism, unspecified; M19.90 Unspecified osteoarthritis, unspecified site; S81.812D Laceration without foreign body, left lower leg, subsequent encounter; X58.XXXD Exposure to other specified factors, subsequent encounter; Z79.899 Other long term (current) drug therapy
CPT/HCPCS: 11042

== ENCOUNTER → 2023-12-16 | Outpatient (CLI) | payer MEDICARE, SELFPAY ==
[2023-12-16 10:12] LABS: Absolute Lymphocyte Count 1.79 X10^3/uL (0.83-4.51); Absolute Neutrophil Count 4.3 X10^3/uL (2.0-7.7); Basophil# 0.07 X10^3/uL; Basophil% 0.9 % (0-1); Eosinophil# 0.55 X10^3/uL; Eosinophils% 7.3 % (0-5); Hematocrit 43.3 % (37-47); Hemoglobin 13.9 g/dL (12.0-15.0); Lymphocyte # 1.79 X10^3/ul (0.83-4.51); Lymphocyte % 23.8 % (19-41); Mean Corp Hgb Conc 32.1 g/dL (32-36); Mean Corpuscular Hgb 30.8 pg (27.0-32.0); Mean Platelet Vol. 11.3 fl (6.2-12.0); Monocyte# 0.83 X10^3/uL; NRBC Flagged by Analyzer 0 % (0-5); Neutrophil # 4.26 X10^3/uL (2.7-7.7); Neutrophil % 56.7 % (47-70); Platelet Count 228 K/mm3 (150-450); RBC Distribution Width CV 13.7 % (11.6-14.6); RBC Distribution Width SD 48.5 fl (35.1-43.9); Red Blood Count 4.51 M/mm3 (4.2-5.4); White Blood Count 7.5 K/mm3 (4.4-11.0)
[2023-12-16 11:09] LABS: ALB/GLOB Ratio 1.1 RATIO (0.9-2.4); AST(SGOT) 19 U/L (15-37); Alanine Aminotransfer ALT/SGPT 23 U/L (13-56); Albumin, Serum 3.5 g/dL (3.2-5.0); Alkaline Phosphatase 73 U/L (45-117); Anion Gap 6 (5-15); BUN 11 mg/dL (7-18); BUN/Creat Ratio 12.2 RATIO (10-20); Chloride 106 mmol/L (98-107); EST Glomerular Filtration Rate 63 mL/min (>60); Est Glom Filt Rate - Afr Amer 76 mL/min (>60); Globulin 3.1 g/dL (2.2-4.2); Glucose 93 mg/dL (74-106); Potassium 4.1 mmol/L (3.5-5.1); Protein, Total 6.6 g/dL (6.4-8.2); Sodium Level 139 mmol/L (136-145)
--- OUTSIDE RECORDS SUMMARY | 2023-12-16 21:49 | XMS RPT_ITS | CCD ---
Author Name Unknown Address [address] [place] [address] Organization [facility] Care Team Providers Care Apprentice/Lineman Name Role Phone Noy DAWKINS, Kayode Cabrera Unavailable [phone] Allergies Allergy Classification Reported Allergen(s) Allergy Type Date of Onset Reaction(s) Facility (2 sources) lisinopril Drug Allergy 12-02-2011 cough [facility] Work Phone: (2 sources) traMADol; Translations: [TRAMADOL] Drug Allergy 12-02-2011 dizziness [facility] Work Phone: Medications Completed/Discontinued Medications Medication Drug Class(es) Dates Sig (Normalized) Sig (Original) ALENDRONATE SODIUM TABS (2 sources) Bisphosphonate Start: 08-31-2017 FOSAMAX TABS as directed ALENDRONATE SODIUM TABS 59180392478 Kayode Villafuerte PA-C AMLODIPINE BESYLATE TABS (2 sources) Dihydropyridine Calcium Channel Caprice Start: 12-02-2011 NORVASC TABS AMLODIPINE BESYLATE TABS [id number] Eben D Hernandez DO calcium carbonate (2 sources) Start: 12-02-2011 CALCIUM CARBONATE TABS CALCIUM CARBONATE TABS [id number] Eben D Hernandez DO cholecalciferol (2 sources) Vitamin D Start: 12-02-2011 VITAMIN D CAPS CHOLECALCIFEROL CAPS [id number] Eben D Hernandez DO fish oil (4 sources) Start: 12-02-2011 End: 08-31-2017 FISH OIL CAPS OMEGA-3 FATTY ACIDS CAPS [id number] Kayode Villafuerte PA-C Problems Problem Classification Problem Date Documented Date Episodic/Chronic Other skin disorders (2 sources) Maculopapular eruption; Translations: [Rash and other nonspecific skin eruption] Onset: 08-31-2017 08-31-2017 Episodic Results Test Name Value Interpretation Reference Range Facil ity Vital Signs Date Time Vital Sign Value Performing Clinician Caleb silva 08-31-2017 10:12-0500 BMI (Body Mass Index) 23.57 kg/m2 Kayode Villafuerte KELSYJunoKarley [facility] Work Phone: 08-31-2017 10:12-0500 Body Temperature 98.1 [degF] Kayode Villafuerte KELSYPerez [facility] Work Phone: 08-31-2017 10:12-0500 BP Diastolic 78 mm[Hg] Kayode Villafuerte PA-C [facility] Work Phone: 08-31-2017 10:12-0500 BP Systolic 118 mm[Hg] Kayode Villafuerte PA-C [facility] Work Phone: 08-31-2017 10:12-0500 Height 156.21 cm Kayode Villafuerte KELSYPerez [facility] Work Phone: 08-31-2017 10:12-0500 Pulse (Heart Rate) 74 /min Kayode Villafuerte KELSYPerez [facility] Work Phone: 08-31-2017 10:12-0500 Respiratory Rate 15 /min Kayode Villafuerte PA-C [facility] Work Phone: 08-31-2017 10:12-0500 Weight 57.52 kg Kayode Villafuerte PA-C [facility] Work Phone: Plan of Treatment Date Care Activity Detail Author Start: 08-31-2017 End: 08-31-2017 Appointment Appointment [facility] Work Phone: [facility] Work Phone: Progress note 02-12-2021 Note Date & Type Note Facility 02-12-2021 Note HNO ID: [id number] Author: Anatoly Adler APRN.ASSISTANT Service: ? Author Type: Nurse Practitioner Type: Progress Notes Filed: 02/12/2021 10:34 AM Note Text: This note was created using NoteWriter. Subjective Bashir King is a 85 year old female. HPI Patient is a healthy nontoxic-appearing 85-year-old female presents to the office today complaining of dog bite. Patient states 2 days ago she got minimal up to dogs playing when 1 accidentally bit her left lower leg. Patient states she knows the dog and is up-to-date on his vaccinations. Patient states dog has not had any, violent tendencies in the past. Patient denies any swelling or bleeding however states she has had some bruising around the site. Patient denies any radiation of pain up to the knee or down to the ankle. Patient denies any fever, shaking, or chills. Patient denies any chest pain, shortness of breath difficulty breathing, abdominal pain, nausea or vomiting. Patient states she is up-to-date on her vaccinations. Review of Systems Constitutional: Negative. HENT: Negative. Respiratory: Negative. Cardiovascular: Negative. Gastrointestinal: Negative. Musculoskeletal: Negative. Skin: Positive for wound. Negative for rash. Neurological: Negative. Objective BP 132/84 Pulse 63 Temp (!) 35.9 ?C (96.6 ?F) (Left Tympanic) Resp 16 Wt 59 kg (130 lb) SpO2 93% Physical Exam Vitals and nursing note reviewed. Constitutional: General: She is not in acute distress. Appearance: Normal appearance. She is not ill-appearing, toxic-appearing or diaphoretic. HENT: Head: Normocephalic. Eyes: Pupils: Pupils are equal, round, and reactive to light. Cardiovascular: Rate and Rhythm: Normal rate and regular rhythm. Pulses: Normal pulses. Heart sounds: Normal heart sounds. No murmur heard. No friction rub. No gallop. Pulmonary: Effort: Pulmonary effort is normal. No respiratory distress. Breath sounds: Normal breath sounds. No stridor. No wheezing, rhonchi or rales. Chest: Chest wall: No tenderness. Musculoskeletal: General: Normal range of motion. Cervical back: Normal range of motion and neck supple. Skin: General: Skin is warm and dry. Capillary Refill: Capillary refill takes less than 2 seconds. Coloration: Skin is not jaundiced or pale. Findings: No bruising, erythema, lesion or rash. Neurological: General: No focal deficit present. Mental Status: She is alert and oriented to person, place, and time. Assessment and Plan Given patient's complaint of presentation thorough exam of the bite site was performed. Patient has a 1.5 cm linear superficial laceration without any underlying fluctuance, induration, bleeding or drainage present. There is no surrounding erythema or edema to the site. Patient states she knows the dog and is up-to-date on vaccinations, I do not believe rabies prophylaxis is warranted. I have low suspicion for underlying abscess, infection, vascular compromise. Given duration of superficial laceration and inability to open wound I do not believe wound repair is warranted. I encouraged patient to continue using soap and water to clean site and apply topical antibiotic ointment. Patient was educated about warning signs of infection and if she should experience any return to the office or go to the emergency room for further evaluation, otherwise follow-up with primary care provider as needed. Patient was agreeable with this plan and discharged home in stable condition. Anatoly Adler APRN.[facility] Summary Purpose Family History No Family History Records Found Advance Directives No Advanced Directives Records Found Additional Source Comments INFORMATION SOURCE (unrecogn ized section and content) FOR RECORDS PERTAINING TO PATIENTS WHO ARE OR HAVE BEEN ENROLLED IN A CHEMICAL DEPENDENCY/SUBSTANCEABUSE PROGRAM, SOME INFORMATION MAY BE OMITTED. This clinical summary was aggregated from multiple sources. Caution should be exercised in using it in the provision of clinical care. This summary normalizes information from multiple sources, and as a consequence, information in this document may materially change the coding, format and clinical context of patient data. In addition, data may be omitted in some cases. CLINICAL DECISIONS SHOULD BE BASED ON THE PRIMARY CLINICAL RECORDS. [facility] provides no warranty or guarantee of the accuracy or completeness of information in this document.
== END | disposition home or self-care (01) ==
LOC: MTLAB 09:26
PROVIDERS: PCP Family Medicine Geriatric Medicine; Referring Provider Internal Medicine Rheumatology; Visit Provider Internal Medicine Rheumatology
DX: M06.00 Rheumatoid arthritis without rheumatoid factor, unspecified site (principal); M15.9 Polyosteoarthritis, unspecified; Z79.899 Other long term (current) drug therapy
CPT/HCPCS: 36415; 80053; 85025

== ENCOUNTER → 2024-02-02 | Outpatient (CLI) | payer MEDICARE, SELFPAY ==
--- NOTE | 2024-02-02 12:12 | CT_ITS ---
STUDY: CT ABDOMEN AND PELVIS WITH CONTRAST REASON FOR EXAM: Female, 88 years old. Two-week history of right lower quadrant pain. RADIATION DOSAGE (If Supplied By Facility): CTDIvol = ( 10.02 ) mGy, DLP = ( 501.99 ) mGycm TECHNIQUE: Transaxial images were obtained from the dome of the diaphragm to the symphysis pubis with oral contrast. Oral and amp; IV Gastrografin and amp; 100mL Isovue-300 was administered. Sagittal and coronal images were reconstructed. Individualized dose optimization techniques were used for this CT. COMPARISON: None. FINDINGS: Minimal linear scarring and/or atelectasis at the lung bases. Coronary artery calcification. There is decreased attenuation of the liver consistent with steatosis. Hepatomegaly. Normal gallbladder and extrahepatic biliary system. Normal spleen. Normal pancreas. Normal bilateral adrenal glands. There is a 1.8 cm x 2 cm cyst in the anterior aspect of the upper pole of the right kidney. Small cyst in the lower pole of the right kidney. 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 Normal visualized stomach. Normal small intestine. Normal colon. There is non-visualization of the appendix. There is diffuse atherosclerotic calcification of the abdominal aorta and its major visceral branches, without a demonstrated aneurysm. There is an IVC filter in place. Normal retroperitoneum. Normal urinary bladder. Calcified injection granulomas in both gluteal regions. Exaggerated lordosis. Complete collapse of the L1 vertebrae with retropulsion of the fracture fragment and a marked degree of central canal stenosis. Spondylosis at the T12-L1 level. CT/Abdomen/Pelvis WITH Contrast IMPRESSION: Hepatomegaly. Fatty infiltration of the liver. Right renal cyst. Complete compression fracture of the L1 vertebrae with retropulsion of the fragments causing a marked degree of central canal stenosis. Electronically Signed: Jensen Good MD at 15:18 EDT ,
== END | disposition home or self-care (01) ==
LOC: CT 12:12
PROVIDERS: PCP Family Medicine Geriatric Medicine; Referring Provider Family Medicine Geriatric Medicine; Visit Provider Family Medicine Geriatric Medicine
DX: R10.9 Unspecified abdominal pain (principal); I10 Essential (primary) hypertension
CPT/HCPCS: 36415; 74177; 80053; 85025; Q9967

== ENCOUNTER → 2024-02-02 | Outpatient (CLI) | payer MEDICARE, SELFPAY ==
[2024-02-02 12:24] LABS: Absolute Lymphocyte Count 2.41 X10^3/uL (0.83-4.51); Absolute Neutrophil Count 5.8 X10^3/uL (2.0-7.7); Basophil# 0.09 X10^3/uL; Eosinophils% 2.1 % (0-5); Hematocrit 43.4 % (37-47); Hemoglobin 13.9 g/dL (12.0-15.0); Lymphocyte # 2.41 X10^3/ul (0.83-4.51); Lymphocyte % 25.9 % (19-41); Mean Corpuscular Hgb 29.8 pg (27.0-32.0); Mean Corpuscular Volume 93.1 fL (81-99); Mean Platelet Vol. 11.1 fl (6.2-12.0); Monocyte# 0.82 X10^3/uL; Monocyte% 8.8 % (0-10); NRBC Flagged by Analyzer 0 % (0-5); Neutrophil # 5.77 X10^3/uL (2.7-7.7); Neutrophil % 61.9 % (47-70); Platelet Count 218 K/mm3 (150-450); RBC Distribution Width CV 13.8 % (11.6-14.6); RBC Distribution Width SD 47.2 fl (35.1-43.9); Red Blood Count 4.66 M/mm3 (4.2-5.4); White Blood Count 9.3 K/mm3 (4.4-11.0)
[2024-02-02 13:20] LABS: ALB/GLOB Ratio 1.3 RATIO (0.9-2.4); AST(SGOT) 21 U/L (15-37); Alanine Aminotransfer ALT/SGPT 22 U/L (13-56); Albumin, Serum 3.9 g/dL (3.2-5.0); Alkaline Phosphatase 73 U/L (45-117); Anion Gap 6 (5-15); BUN 12 mg/dL (7-18); BUN/Creat Ratio 12.6 RATIO (10-20); Chloride 107 mmol/L (98-107); Creatinine, Serum 0.95 mg/dL (0.55-1.02); EST Glomerular Filtration Rate 59 mL/min (>60); Est Glom Filt Rate - Afr Amer 71 mL/min (>60); Globulin 3.1 g/dL (2.2-4.2); Glucose 100 mg/dL (74-106); Potassium 4.1 mmol/L (3.5-5.1); Sodium Level 140 mmol/L (136-145)
== END | disposition home or self-care (01) ==
LOC: POLAB3 12:02
PROVIDERS: PCP Family Medicine Geriatric Medicine; Visit Provider Family Medicine Geriatric Medicine
DX: I10 Essential (primary) hypertension (principal)
CPT/HCPCS: 36415; 80053; 85025

== ENCOUNTER → 2024-02-11 | Outpatient (CLI) | payer MEDICARE, SELFPAY ==
--- NOTE | 2024-02-11 07:35 | MRI_ITS ---
ACR Level 3 findings have been noted. An addendum which confirms receipt of the report will follow. STUDY: MRI LUMBAR SPINE WITHOUT CONTRAST REASON FOR EXAM: Female, 88 years old. STENOSIS,SPONDYLOSIS TECHNIQUE: Standardized fat and water weighted pulse sequences were obtained in the sagittal and axial planes. COMPARISON: None FINDINGS: Normal lumbar lordosis. There is a levoscoliosis of the lumbar spine. Normal conus medullaris that terminates at the L1 level. Repeat acute fracture in is seen in the posterior aspect of the L1 vertebral body with a linear nondisplaced fracture line and diffuse marrow edema. Pre-existing L1 significant compression fracture deformity with loss of height resulting in a vertebral plana deformity with additional loss of height seen where compared to the April 09, 2023 study. No additional acute abnormalities are present. Retropulsion of the L1 posterior cortex results in mild to moderate focal central canal stenosis. T12-L1: Moderate asymmetric disc space narrowing with diffuse disc bulges/disc spur complex. Mild to moderate central canal stenosis. Severe right foraminal stenosis with nerve root compression. Moderate left foraminal stenosis with nerve root compression. Mild to moderate facet joint and ligament of flavum hypertrophy Diffuse disc bulging. Retrolisthesis of 2 to 3 mm. Mild right foraminal stenosis. Moderate left foraminal stenosis with posterior impingement. Normal bilateral facet joints. Normal central canal and bilateral lateral recesses. Normal bilateral intervertebral neural foramina. L1-2: Diffuse disc desiccation with mild to moderate asymmetric disc space narrowing. Diffuse disc bulging. Retrolisthesis of 2 to 3 mm. Mild right foraminal stenosis. Moderate left foraminal stenosis with posterior impingement. Normal bilateral facet joints. Normal central canal and bilateral lateral recesses. Normal bilateral intervertebral neural foramina. L2-3: Diffuse disc desiccation with mild to moderate asymmetric disc space narrowing and diffuse disc bulging. Mild endplate spurring.. Normal bilateral facet joints. Normal central canal and bilateral lateral recesses. Normal bilateral intervertebral neural foramina. L3-4: Diffuse disc desiccation with mild to moderate posterior disc space narrowing and slight annular bulging. Mild facet joint hypertrophy and mild bilateral lateral recess stenosis. Normal central canal. Normal bilateral intervertebral neural foramina. L4-5: Normal endplates. Normal disc height. Minor posterior disc space narrowing and slight annular bulging. Anterolisthesis of L4 and L5 of 2 mm. Mild to moderate facet joint hypertrophy and degeneration. Normal central canal and bilateral lateral recesses. Normal bilateral intervertebral neural foramina. L5-S1: Normal endplates. Diffuse disc desiccation with mild disc space narrowing and slight annular bulging. Normal bilateral facet joints. Normal central canal and bilateral lateral recesses. Normal bilateral intervertebral neural foramina. Normal visualized sacral ala. There is moderate paraspinal muscular atrophy. Small simple cysts of the kidneys are present that do not requiring additional imaging. MRI/Spine Lumbar (Routine) IMPRESSION: 1. Acute on chronic compression fracture of the L1 vertebral body with retropulsion resulting in mild to moderate central canal stenosis. Significant loss of height of the L1 vertebral body resulting in a vertebral plana deformity. 2. Multilevel degenerative changes, as described above. Electronically Signed: Marcello Rosario MD at 15:14 EDT ,
== END | disposition home or self-care (01) ==
PROVIDERS: PCP Family Medicine Geriatric Medicine; Referring Provider Family Medicine Geriatric Medicine; Visit Provider Family Medicine Geriatric Medicine
DX: M48.061 Spinal stenosis, lumbar region without neurogenic claudication (principal); M47.816 Spondylosis without myelopathy or radiculopathy, lumbar region
CPT/HCPCS: 72148

== ENCOUNTER → 2024-02-17 | Outpatient (CLI) | payer MEDICARE, SELFPAY ==
[2024-02-17 15:18] LABS: Absolute Lymphocyte Count 2.24 X10^3/uL (0.83-4.51); Basophil# 0.08 X10^3/uL; Eosinophil# 0.17 X10^3/uL; Eosinophils% 2.1 % (0-5); Hematocrit 42.1 % (37-47); Hemoglobin 13.3 g/dL (12.0-15.0); Lymphocyte # 2.24 X10^3/ul (0.83-4.51); Lymphocyte % 27.7 % (19-41); Mean Corp Hgb Conc 31.6 g/dL (32-36); Mean Corpuscular Hgb 29.8 pg (27.0-32.0); Mean Corpuscular Volume 94.2 fL (81-99); Mean Platelet Vol. 11.4 fl (6.2-12.0); Monocyte# 0.54 X10^3/uL; Monocyte% 6.7 % (0-10); NRBC Flagged by Analyzer 0 % (0-5); Neutrophil # 5.04 X10^3/uL (2.7-7.7); Neutrophil % 62.3 % (47-70); Platelet Count 209 K/mm3 (150-450); RBC Distribution Width CV 13.7 % (11.6-14.6); RBC Distribution Width SD 47.6 fl (35.1-43.9); Red Blood Count 4.47 M/mm3 (4.2-5.4); White Blood Count 8.1 K/mm3 (4.4-11.0)
[2024-02-17 16:08] LABS: ALB/GLOB Ratio 1.3 RATIO (0.9-2.4); AST(SGOT) 18 U/L (15-37); Alanine Aminotransfer ALT/SGPT 25 U/L (13-56); Albumin, Serum 3.7 g/dL (3.2-5.0); Alkaline Phosphatase 61 U/L (45-117); Anion Gap 6 (5-15); BUN 10 mg/dL (7-18); BUN/Creat Ratio 10.7 RATIO (10-20); Calcium,Total 9.3 mg/dL (8.5-10.1); Chloride 107 mmol/L (98-107); Cholesterol 158 mg/dL (200); Creatinine, Serum 0.94 mg/dL (0.55-1.02); EST Glomerular Filtration Rate 60 mL/min (>60); Est Glom Filt Rate - Afr Amer 73 mL/min (>60); Globulin 2.9 g/dL (2.2-4.2); Glucose 97 mg/dL (74-106); High Density Lipoprotein 80 mg/dL; Potassium 3.9 mmol/L (3.5-5.1); Protein, Total 6.6 g/dL (6.4-8.2); Sodium Level 138 mmol/L (136-145); Thyroid Stim Hormone (TSH) 1.12 uIU/mL (0.358-3.74); Triglycerides 98 mg/dL; Very Low Density Lipoprotein 20 mg/dL (5-40); Vitamin D,25 Hydroxy 50.9 ng/mL
== END | disposition home or self-care (01) ==
LOC: LAB 14:21
PROVIDERS: PCP Family Medicine Geriatric Medicine; Referring Provider Family Medicine Geriatric Medicine; Visit Provider Family Medicine Geriatric Medicine
DX: I10 Essential (primary) hypertension (principal); E78.5 Hyperlipidemia, unspecified; E55.9 Vitamin D deficiency, unspecified
CPT/HCPCS: 36415; 80053; 80061; 82306; 84443; 85025

== ENCOUNTER → 2024-02-18 | Outpatient (CLI) | payer MEDICARE, SELFPAY ==
--- NOTE | 2024-02-18 15:15 | RAD_ITS ---
STUDY: X-RAY - ABDOMEN/PELVIS REASON FOR EXAM: Female, 88 years old. CONSTIPATION/PAIN TECHNIQUE: Single AP view of the abdomen / pelvis. COMPARISON: September 25, 2023 FINDINGS: Normal visualized lung bases. There is moderate fluid and gaseous distention of small and large bowel loops. There is no demonstrated free abdominal air. There is IVC filter in the right mid abdomen. There is scoliosis and degenerative change of the spine. There is degenerative change of the bilateral hips. RAD/Abdomen Single View IMPRESSION: Distention of bowel loops suggesting ileus or distal obstruction. Electronically Signed: Ramu Croft MD at 22:58 EDT ,
== END | disposition home or self-care (01) ==
LOC: MTRAD 15:14
PROVIDERS: PCP Family Medicine Geriatric Medicine; Referring Provider Internal Medicine Gastroenterology; Visit Provider Internal Medicine Gastroenterology
DX: K59.00 Constipation, unspecified (principal)
CPT/HCPCS: 74018

== ENCOUNTER → 2024-03-26 | Outpatient (CLI) | payer MEDICARE, SELFPAY ==
--- NOTE | 2024-03-26 12:27 | RAD_ITS ---
INDICATION: R GROIN PAIN EXAMINATION/TECHNIQUE: X-RAY - XR Hips Bilateral with Pelvis when performed; 2 Views COMPARISON: No relevant prior comparison study available FINDINGS: PELVIC BONES: No displaced fracture, destructive or sclerotic lesions. Note that overlapping bowel shadows may however obscure fine detail. Sacroiliac joints are unremarkable. No widening of the pubic symphysis. HIPS: No dislocation or fracture however significant osteophytic changes on the RIGHT with coarse osteophyte formation. Coarse osteophyte formation noted on the LEFT however not as advanced as on the RIGHT. No displaced fracture seen in this frontal view. SOFT TISSUES: No soft tissue swelling or gas. RAD/Hips B/L min 2 views w/ Pelvis IMPRESSION: 1. Bilateral osteoarthritic changes involving the hips greater on the RIGHT than LEFT. 2. No fractures or dislocation. 3. Pelvic ring is intact. Electronically Signed: Ney Redding MD at 23:34 EDT ,
== END | disposition home or self-care (01) ==
LOC: RAD 12:25
PROVIDERS: PCP Family Medicine Geriatric Medicine; Referring Provider Anesthesiology Pain Medicine; Visit Provider Anesthesiology Pain Medicine
DX: R10.2 Pelvic and perineal pain (principal)
CPT/HCPCS: 73521

== ENCOUNTER → 2024-05-06 | Outpatient (CLI) | payer MEDICARE, SELFPAY | END | disposition home or self-care (01) | LOC: PSN 12:32 | PROVIDERS: PCP Family Medicine Geriatric Medicine; Referring Provider Family Medicine Geriatric Medicine; Visit Provider Family Medicine Geriatric Medicine | DX: R68.83 Chills (without fever) (principal) | CPT/HCPCS: 87631 ==

== ENCOUNTER → 2024-06-08 | Outpatient (CLI) | payer MEDICARE, SELFPAY ==
[2024-06-08 12:24] LABS: Hematocrit 43.1 % (37-47); Hemoglobin 13.8 g/dL (12.0-15.0); Mean Corpuscular Hgb 30.4 pg (27.0-32.0); Mean Corpuscular Volume 94.9 fL (81-99); RBC Distribution Width CV 14.3 % (11.6-14.6); Red Blood Count 4.54 M/mm3 (4.2-5.4); White Blood Count 8.8 K/mm3 (4.4-11.0)
[2024-06-08 12:25] LABS: Absolute Lymphocyte Count 2.37 X10^3/uL (0.83-4.51); Absolute Neutrophil Count 5.3 X10^3/uL (2.0-7.7); Basophil# 0.08 X10^3/uL; Basophil% 0.9 % (0-1); Eosinophil# 0.24 X10^3/uL; Eosinophils% 2.7 % (0-5); Lymphocyte # 2.37 X10^3/ul (0.83-4.51); Lymphocyte % 26.8 % (19-41); Mean Platelet Vol. 11.4 fl (6.2-12.0); Monocyte# 0.83 X10^3/uL; Monocyte% 9.4 % (0-10); NRBC Flagged by Analyzer 0 % (0-5); Neutrophil # 5.27 X10^3/uL (2.7-7.7); Neutrophil % 59.6 % (47-70); Platelet Count 218 K/mm3 (150-450); RBC Distribution Width SD 49.7 fl (35.1-43.9)
[2024-06-08 12:50] LABS: ALB/GLOB Ratio 1.3 RATIO (0.9-2.4); AST(SGOT) 20 U/L (15-37); Alanine Aminotransfer ALT/SGPT 27 U/L (13-56); Albumin, Serum 3.7 g/dL (3.2-5.0); Alkaline Phosphatase 73 U/L (45-117); Anion Gap 7 (5-15); BUN 15 mg/dL (7-18); BUN/Creat Ratio 16.1 RATIO (10-20); Calcium,Total 9.7 mg/dL (8.5-10.1); Chloride 104 mmol/L (98-107); Creatinine, Serum 0.93 mg/dL (0.55-1.02); EST Glomerular Filtration Rate 60 mL/min (>60); Est Glom Filt Rate - Afr Amer 73 mL/min (>60); Globulin 2.9 g/dL (2.2-4.2); Glucose 95 mg/dL (74-106); Protein, Total 6.6 g/dL (6.4-8.2); Sodium Level 138 mmol/L (136-145)
== END | disposition home or self-care (01) ==
LOC: MTLAB 09:38
PROVIDERS: PCP Family Medicine Geriatric Medicine; Referring Provider Internal Medicine Rheumatology; Visit Provider Internal Medicine Rheumatology
DX: M06.00 Rheumatoid arthritis without rheumatoid factor, unspecified site (principal); Z79.899 Other long term (current) drug therapy
CPT/HCPCS: 36415; 80053; 85025

== ENCOUNTER → 2024-06-14 | Outpatient (CLI) | payer MEDICARE, SELFPAY | END | disposition home or self-care (01) | LOC: POLAB3 15:14 | PROVIDERS: PCP Family Medicine Geriatric Medicine; Visit Provider Family Medicine Geriatric Medicine | DX: S81.801A Unspecified open wound, right lower leg, initial encounter (principal); X58.XXXA Exposure to other specified factors, initial encounter; B95.62 Methicillin resistant Staphylococcus aureus infection as the cause of diseases classified elsewhere | CPT/HCPCS: 87070; 87075; 87077; 87186; 87205 ==

== ENCOUNTER 2024-06-25 08:15 | Outpatient (RCR) | payer MEDICARE, SELFPAY ==
[2024-06-18 08:04] VITALS: RESP 18; TEMP 37
[2024-06-18 09:17] VITALS: BP 175/93; PULSE 64
[2024-06-25 08:36] VITALS: BP 164/92; PULSE 72; RESP 18; TEMP 35.9
== END 2024-07-05 23:59 | disposition home or self-care (01) ==
LOC: WC 08:15
PROVIDERS: PCP Family Medicine Geriatric Medicine; Referring Provider Family Medicine Geriatric Medicine; Visit Provider Family Medicine
DX: L97.812 Non-pressure chronic ulcer of other part of right lower leg with fat layer exposed (principal); I87.2 Venous insufficiency (chronic) (peripheral); S81.811S Laceration without foreign body, right lower leg, sequela; W26.8XXS Contact with other sharp object(s), not elsewhere classified, sequela; I10 Essential (primary) hypertension; E78.5 Hyperlipidemia, unspecified; E03.9 Hypothyroidism, unspecified; M19.90 Unspecified osteoarthritis, unspecified site; K21.9 Gastro-esophageal reflux disease without esophagitis; Z79.890 Hormone replacement therapy; Z79.899 Other long term (current) drug therapy
CPT/HCPCS: 11042; 99213; G0463

== ENCOUNTER 2024-07-19 15:06 | Emergency (ER) | payer MEDICARE, SELFPAY ==
[2024-07-19 15:08] VITALS: BP 204/93; PULSE 83; RESP 18; TEMP 36; O2SAT 96
--- NOTE | 2024-07-19 15:47 | RAD_ITS ---
STUDY: X-RAY - LEFT KNEE REASON FOR EXAM: Female, 88 years old. injury TECHNIQUE: 4 view(s) of the knee. COMPARISON: None. FINDINGS: Knee prosthesis is noted in anatomic alignment and position. Focal severe diffuse soft tissue swelling in the anterior superior medial aspect of the knee. This may represent a large soft tissue hematoma however cannot exclude Quintanilla Maxi lesion. MRI would be useful for further evaluation if indicated RAD/Knee 4 or More Views IMPRESSION: Severe focal soft tissue swelling of the anterior superior medial aspect of the knee. Stable appearance to knee prosthesis Electronically Signed: Sergio Harvey MD at 16:55 EDT ,
--- NOTE | 2024-07-19 15:48 | EDS_ITS ---
HPI History of Present Illness Chief Complaint: Fall Detail of Chief Complaint: Fall Informant: patient Narrative Narrative: Patient presents to the emergency department after sustaining a fall around 2 PM. Patient states that she tripped over a curb and fell onto concrete and some gravel. She did strike her head but no loss of consciousness. She injured her left knee. Sustained a small laceration along the nail of the right small f francisco. She is unsure of her last tetanus but states that her primary care physician typically keeps her up-to-date on such matters. Patient denies neck pain. She has been up and ambulatory but having pain in the left knee which she has had replaced in the past. [facility] Medical History Cat scratch of right lower leg Cellulitis of right lower leg Traumatic open wound of right lower leg Non-pressure ulcer of right lower extremity with fat layer exposed Cellulitis of left lower limb Hyperlipidemia Laceration of left lower leg with complication Skin tear of left lower leg without complication Cervical myofascial strain Contusion, nose Laceration of left hand Forehead abrasion Laceration of right lower leg Arthritis Varicose veins of both lower extremities with inflammation Chronic venous insufficiency Right leg pain History of TIA (transient ischemic attack) History of cerebral aneurysm History of patellar fracture Osteoporosis History of deep vein thrombosis History of pulmonary embolism Small intestinal bacterial overgrowth Microscopic colitis Diarrhea Home Medications ?Medication ?Instructions ?Recorded ?Last Taken ?Type levothyroxine 75 mcg tablet 75 mcg PO DAILY thyroid 07/23/13 11/13/19 History calcium 500 mg (as 1 ea PO DAILY supplement 02/10/14 Unknown History carbonate)-vitamin D3 10 mcg (400 unit) tablet hydroxychloroquine 200 mg tablet 300 mg PO DAILY arthritis 05/29/19 Unknown History metoprolol succinate 25 mg 25 mg PO DAILY bp/heart 05/29/19 Unknown History tablet,extended release 24 hr acetaminophen 325 mg tablet 650 mg (2 x 325 mg) PO Q6H PRN PRN 11/15/19 Unknown Rx Pain Score 1-10/Temp > 100.7 F #100 tabs PRAMIPEXOLE DIHYDROCHLORIDE 0.125 mg PO QHS PRN INSOMNIA 08/05/23 Unknown History Boostrix Tdap 2.5 Lf unit-8 mcg-5 0.5 ml IM ONCE #1 mL 03/02/24 Unknown Clinic Lf/0.5 mL intramuscular syringe (diphth,pertus(acell),tetanus) biotin 1 mg capsule 1 mg PO DAILY 06/18/24 Unknown History magnesium glycinate 100 mg (as 100 mg PO DAILY 06/18/24 Unknown History glycinate) tablet (Mag Glycinate) amoxicillin 875 mg-potassium 1 tab PO BID #20 tabs 06/25/24 Unknown Rx clavulanate 125 mg tablet Allergy/AdvReac Type Severity Reaction Status Date / Time No Known Allergies Allergy Verified 03/03/24 13:06 Family History Father CVA (cerebral vascular accident) Mother CVA (cerebral vascular accident) Surgical History History of total left knee replacement History of breast biopsy History of right knee surgery History of carpal tunnel release Social History Smoking Status: Never smoker alcohol intake: current alcohol intake frequency: a few times a month ROS ROS ED Review of Systems ROS Unobtainable: other Constitutional Constitutional ED: Reports lethargy; Denies chills, fever(s), sweats or weight loss Eyes Eyes: Denies blurry vision, change in vision or diplopia ENT ENT ED: Denies rhinorrhea or sore throat Cardiovascular Cardiovascular: Denies chest pain, orthopnea or racing heartbeat Respiratory/Chest Respiratory/Chest: Denies cough, dyspnea, dyspnea on exertion, orthopnea or sputum Gastrointestinal Gastrointestinal: Denies abdominal pain, diarrhea, nausea or vomiting Genitourinary Genitourinary ED: Denies dysuria, hematuria or urinary frequency Musculoskeletal Musculoskeletal: Reports other Details: Left knee pain/swelling Right small finger laceration ; Denies arthralgias, back pain, myalgias or neck pain Integumentary Denies abscess, Abrasions or rash Neurologic Neurologic: Reports headache(s); Denies weakness Psychiatric Psychiatric: Denies anxiety, depression or suicidal thoughts Endocrine Endocrinology: Denies polydipsia, polyphagia or polyuria Hematologic/Lymphatic Hematologic/Lymphatic: Denies easy bleeding, easy bruising or lymphadenopathy Allergic/Immunologic Allergic/Immunologic ED: Denies mouth swelling, tongue swelling or urticaria EXAM Physical Exam Const Vital Signs: 07/19/24 15:08 07/19/24 16:49 07/19/24 16:50 Temperature 96.8 F L Temperature Source Temporal Pulse Rate 83 87 Respiratory Rate 18 18 Respiratory Effort Normal Non-Labored Respiratory Depth Normal Respiratory Pattern Normal Blood Pressure 204/93 H 185/90 H Blood Pressure Mean 130 121 Pulse Ox 96 96 Oxygen Delivery Method Room Air Room Air Positive well nourished and well developed General Appearance ED: well developed and NAD HEENT Reports TM's clear and moist mucous membranes HEENT Narrative: Patient has a hematoma to the left forehead with superficial skin abrasion. No bony step-offs. No hemotympanum. normocephalic and atraumatic; Negative for trauma or tenderness Tympanic Membrane ED: Yes TM's clear Eyes PERRL and EOMs intact bilaterally General Eye ED: Negative for pale conjunctiva or scleral icterus Neck no lymphadenopathy, supple and no JVD General: Negative for tenderness Chest Wall inspection of chest normal and palpation of chest normal Chest: Negative for tenderness Resp normal respiratory effort and clear to auscultation bilaterally Effort and Inspection: Negative for respiratory distress or pain with movement Auscultation: Negative for rhonchi, wheezes or diminished lung sounds Cardio regular rate, regular rhythm, S1 normal heart sound, S2 normal heart sound and no murmurs Peripheral Pulses: pulses 2+ throughout GI normal to inspection, nondistended, normoactive bowel sounds, soft to palpation, non-tender, non-distended and no masses Back/Spine no CVA tenderness and no thoracic nor lumbar tenderness Extremity Extremity Narrative: Left knee-patient has diffuse soft tissue swelling anteriorly left knee and superior to the patella medial aspect with hematoma. Limited range of motion secondary to pain. She has a superficial skin tear to the anterior aspect over the patella measuring approximately 3 cm in diameter. Neurovascularly intact distally. Right small finger-patient has a V-shaped laceration along the lateral nail edge measuring 1 cm. Flaps well-approximated there is no significant bleeding. Neurovascular intact General Extremety ED: Negative for edema General Extremity: Negative for edema Neuro oriented x3, CN's II-XII intact bilaterally, no sensory deficits noted and gait normal Sensorium / Orientation: awake, alert, oriented to person, oriented to place and oriented to time Motor Exam: strength 5/5 throughout and strength abnormal Psych mental status grossly normal Skin no rashes or lesions noted and no wounds MDM MDM MDM Narrative Medical decision making narrative: Patient presents with mechanical fall and injury to her head and left knee. CT scan of the brain without contrast showed no acute intracranial hemorrhage but did show a hematoma to the left frontal scalp. Patient also had a CT of the cervical spine which shows type II fracture of the odontoid process and fracture of the anterior arch of C1 which are new findings compared to March 30, 2023. Patient also had x-rays of the left knee that showed severe focal soft tissue swelling of the anterior superior medial aspect of the knee without fractures. Patient has c-collar applied. She had an Esvin wrap applied to her left knee. Will discuss case with trauma center for transfer. Lab Data Attestation: I reviewed the patient's lab results. Radiography Diagnostic Testing: Clinical Impression(s) from Imaging Studies Knee X-Ray 07/19/24 15:47 IMPRESSION: Severe focal soft tissue swelling of the anterior superior medial aspect of the knee. Stable appearance to knee prosthesis Electronically Signed: Sergio Harvey MD at 16:55 EDT , Brain CT 07/19/24 15:54 IMPRESSION: Hematoma in the scalp overlying the left frontal bone without associated skull fracture or acute intracranial hemorrhage. Electronically Signed: Sergio Harvey MD at 16:22 EDT , Cervical Spine CT 07/19/24 15:54 IMPRESSION: Type II fracture of the odontoid process and and fracture of the anterior arch of C1 which are new finding since prior exam on March 30, 2023. Moderate spondylosis and multilevel spinal stenosis secondary to bony hypertrophy N.B. : The above Results were Read Back by Sergio Harvey MD to Venu Gomez DO, and understanding confirmed on 07/19/2024 16:31:14 (ET). Electronically Signed: Sergio Harvey MD at 16:36 EDT , ADDENDUM: 07/19/24 1643 IMPRESSION: Type II fracture of the odontoid process and and fracture of the anterior arch of C1 which are new finding since prior exam on March 30, 2023. Moderate spondylosis and multilevel spinal stenosis secondary to bony hypertrophy N.B. : The above Results were Read Back by Sergio Harvey MD to Venu Gomez DO, and understanding confirmed on 07/19/2024 16:31:14 (ET). Electronically Signed: Sergio Harvey MD at 16:36 EDT , Discharge Plan Triage Chief Complaint: Fall ED Provider: Venu Gomez Dx/Rx/DC Orders Clinical Impression: Fall, Closed head injury, C1 cervical fracture, C2 cervical fracture, Contusion of knee, left, Finger laceration Prescriptions: No Action Boostrix Tdap 2.5-8-5 Lf-mcg-Lf/0.5mL syringe 0.5 ml IM ONCE Qty: 1 0RF levothyroxine 75 MCG tablet 75 mcg PO DAILY Patient Comments: thyroid calcium carbonate-vitamin D3 1 EACH tablet 1 ea PO DAILY Patient Comments: supplement metoprolol succinate 25 MG tablet 25 mg PO DAILY hydroxychloroquine 200 MG tablet 300 mg PO DAILY acetaminophen 325 MG tablet 650 mg PO Q6H PRN PRN (Reason: Pain Score 1-10/Temp > 100.7 F) Qty: 100 0RF PRAMIPEXOLE DIHYDROCHLORIDE 0.125 mg PO QHS PRN Mag Glycinate 100 mg tablet 100 mg PO DAILY biotin 1 mg capsule 1 mg PO DAILY amoxicillin-pot clavulanate 875-125 mg tablet 1 tab PO BID Qty: 20 0RF Primary Care Provider: Sagar Horton Chi Referrals: Sagar Horton Chi, MD [Primary Care Provider] - Print Language: Hungarian Disposition Disposition: DC/Tx to Another Type of HCF
--- NOTE | 2024-07-19 15:54 | CT_ITS ---
STUDY: CT CERVICAL SPINE WITHOUT CONTRAST REASON FOR EXAM: Female, 88 years old. fall RADIATION DOSAGE (If Supplied By Facility): CTDIvol = ( 12.40 ) mGy, DLP = ( 250.02 ) mGycm TECHNIQUE: High resolution transaxial imaging was performed without contrast material. Sagittal and coronal images were reconstructed. Individualized dose optimization techniques were used for this CT. COMPARISON: March 30, 2023 FINDINGS: Normal craniovertebral junction. Normal anterior atlantoaxial articulation. There is an obliquely oriented type II fracture of the odontoid process with mild separation of fracture fragments. There is also comminuted fracture through the anterior arch of C1 with mild separation of fracture fragments Normal cervical lordosis. Mild scoliosis or splinting secondary to muscle spasm Normal vertebral bodies and posterior osseous elements. C2-3: Normal endplates. Normal disc height and morphology. Normal central canal and intervertebral neuroforamina. C3-4: Normal endplates. Normal disc height and morphology. Normal central canal. Severe right neural foraminal stenosis and mild narrowing on the left secondary to bony hypertrophy C4-5: Normal endplates. Normal disc height and morphology. Normal central canal and mild bilateral neural foraminal encroachment secondary to bony hypertrophy. C5-6: Narrowed disc space and endplate spurring with small central osteophyte protrusion. Mild narrowing of the central canal. Moderate right neural neural foraminal stenosis and more severe narrowing on the left secondary to bony hypertrophy C6-7: Narrowed disc space and endplate spurring. Normal central canal. Mild left neural foraminal stenosis secondary to bony hypertrophy C7-T1: Normal endplates. Normal disc height and morphology. Normal central canal and intervertebral neuroforamina. There is very minimal predental soft tissue thickening and the fractures are new finding since prior exam suggesting recent injuries however the fracture fragments demonstrate sclerotic margins raising question of prior injury which hasn''t healed Clinical correlation is recommended. CT/Spine Cervical without Contras IMPRESSION: Type II fracture of the odontoid process and and fracture of the anterior arch of C1 which are new finding since prior exam on March 30, 2023. Moderate spondylosis and multilevel spinal stenosis secondary to bony hypertrophy N.B. : The above Results were Read Back by Sergio Harvey MD to Venu Gomez DO, and understanding confirmed on 07/19/2024 16:31:14 (ET). Electronically Signed: Sergio Harvey MD at 16:36 EDT ,
--- NOTE | 2024-07-19 15:54 | CT_ITS ---
STUDY: CT BRAIN WITHOUT CONTRAST REASON FOR EXAM: Female, 88 years old. fall RADIATION DOSAGE (If Supplied By Facility): CTDIvol = ( 44.99 ) mGy, DLP = ( 779.24 ) mGycm TECHNIQUE: Transaxial CT imaging of the brain was performed without administration of intravenous contrast material. Individualized dose optimization techniques were used for this CT. COMPARISON: No relevant priors. FINDINGS: There is a hematoma in the scalp overlying the left frontal bone without associated skull fracture. Calcific plaquing of the cavernous carotids Mild atrophy and periventricular white matter ischemic changes.. Normal basal ganglia and thalami. Normal brainstem. Normal cerebellum. There is no intracranial hemorrhage. There are no findings of an acute ischemic infarction. Diffuse mucosal thickening in the right maxillary sinus demonstrating increased attenuation possibly due to hemorrhage or fungal components. Mild mucosal thickening of left maxillary sinus. Postsurgical changes of the orbits. CT/Brain/Head without Contrast IMPRESSION: Hematoma in the scalp overlying the left frontal bone without associated skull fracture or acute intracranial hemorrhage. Electronically Signed: Sergio Harvey MD at 16:22 EDT ,
[2024-07-19 16:49] VITALS: BP 185/90; PULSE 87; RESP 18; O2SAT 96; BMI 23.4
[2024-07-19] MEDS: fentaNYL 100 MCG/2 ML Ampul 25 MCG IV (17:12)
--- NOTE | 2024-07-19 17:27 | NURSING ---
CALLED [facility], ETA IS 90 MIN
[2024-07-19 17:28] LABS: Absolute Lymphocyte Count 1.41 X10^3/uL (0.83-4.51); Absolute Neutrophil Count 7.2 X10^3/uL (2.0-7.7); Basophil# 0.07 X10^3/uL; Basophil% 0.7 % (0-1); Eosinophil# 0.08 X10^3/uL; Eosinophils% 0.8 % (0-5); Hematocrit 39.6 % (37-47); Hemoglobin 12.8 g/dL (12.0-15.0); Lymphocyte # 1.41 X10^3/ul (0.83-4.51); Mean Corp Hgb Conc 32.3 g/dL (32-36); Mean Corpuscular Hgb 30.7 pg (27.0-32.0); Mean Platelet Vol. 11.2 fl (6.2-12.0); Monocyte# 0.66 X10^3/uL; NRBC Flagged by Analyzer 0 % (0-5); Neutrophil # 7.18 X10^3/uL (2.7-7.7); Neutrophil % 76.2 % (47-70); Platelet Count 211 K/mm3 (150-450); RBC Distribution Width CV 13.4 % (11.6-14.6); RBC Distribution Width SD 46.9 fl (35.1-43.9); Red Blood Count 4.17 M/mm3 (4.2-5.4); White Blood Count 9.4 K/mm3 (4.4-11.0)
[2024-07-19 17:47] LABS: Anion Gap 5 (5-15); BUN 14 mg/dL (7-18); Calcium,Total 9.3 mg/dL (8.5-10.1); Chloride 107 mmol/L (98-107); Creatinine, Serum 0.88 mg/dL (0.55-1.02); EST Glomerular Filtration Rate 65 mL/min (>60); Est Glom Filt Rate - Afr Amer 78 mL/min (>60); Estimated Creatinine Clearance 34.95 ml/min; Glucose 125 mg/dL (74-106); Potassium 4.1 mmol/L (3.5-5.1); Sodium Level 137 mmol/L (136-145)
[2024-07-19] MEDS: Morphine 4 MG/ML Syringe IV (17:48)
[2024-07-19] MEDS: Ondansetron 4 MG/2 ML Vial IV (17:49)
[2024-07-19 18:17] VITALS: BP 185/90; PULSE 84; RESP 18; TEMP 36.7; O2SAT 95
[2024-07-19 19:00] VITALS: BP 163/89
== END 2024-07-19 19:22 | disposition other institution (70) ==
PROVIDERS: Emergency Provider Emergency Medicine; PCP Family Medicine Geriatric Medicine; Visit Provider Emergency Medicine
DX: S12.000A Unspecified displaced fracture of first cervical vertebra, initial encounter for closed fracture (principal); S12.101A Unspecified nondisplaced fracture of second cervical vertebra, initial encounter for closed fracture; S80.02XA Contusion of left knee, initial encounter; S61.216A Laceration without foreign body of right little finger without damage to nail, initial encounter; W10.1XXA Fall (on)(from) sidewalk curb, initial encounter
CPT/HCPCS: 70450; 72125; 73564; 80048; 85025; 96374; 96375; 96376; 99285; A4216; J2405

== ENCOUNTER → 2024-07-28 | Outpatient (CLI) | payer MEDICARE, SELFPAY ==
--- NOTE | 2024-07-28 13:17 | RAD_ITS ---
STUDY: X-RAY - LEFT KNEE REASON FOR EXAM: Female, 88 years old. PAIN / INFECTION TECHNIQUE: 3 views of the left knee. COMPARISON: Left knee radiographs dated 07/19/2024. FINDINGS: There is significant interval improvement of the previously seen prepatellar soft tissue swelling, now mild in severity. Again seen is a left total knee arthroplasty with patellar resurfacing. The orthopedic hardware components are intact. There is no periprosthetic fracture. Normal proximal tibiofibular articulation. There are atherosclerotic calcifications. RAD/Knee 3 Views IMPRESSION: Significant interval improvement of the previously seen prepatellar soft tissue swelling, now mild in severity. Left total knee arthroplasty, with no periprosthetic fracture. Electronically Signed: Raphael Bowden MD at 13:52 EDT ,
== END | disposition home or self-care (01) ==
LOC: MTRAD 13:15
PROVIDERS: PCP Family Medicine Geriatric Medicine
DX: M25.462 Effusion, left knee (principal); M01.X Direct infection of joint in infectious and parasitic diseases classified elsewhere
CPT/HCPCS: 73562

== ENCOUNTER → 2024-08-12 | Outpatient (CLI) | payer MEDICARE, SELFPAY ==
[2024-08-12 13:57] LABS: Absolute Lymphocyte Count 1.99 X10^3/uL (0.83-4.51); Absolute Neutrophil Count 3.5 X10^3/uL (2.0-7.7); Basophil# 0.06 X10^3/uL; Basophil% 0.9 % (0-1); Eosinophil# 0.26 X10^3/uL; Hematocrit 37.5 % (37-47); Hemoglobin 12.3 g/dL (12.0-15.0); Lymphocyte # 1.99 X10^3/ul (0.83-4.51); Lymphocyte % 30.6 % (19-41); Mean Corp Hgb Conc 32.8 g/dL (32-36); Mean Corpuscular Hgb 31.5 pg (27.0-32.0); Mean Corpuscular Volume 96.2 fL (81-99); Mean Platelet Vol. 11.2 fl (6.2-12.0); Monocyte# 0.67 X10^3/uL; Monocyte% 10.3 % (0-10); NRBC Flagged by Analyzer 0 % (0-5); Neutrophil % 53.9 % (47-70); Platelet Count 198 K/mm3 (150-450); RBC Distribution Width CV 13.8 % (11.6-14.6); RBC Distribution Width SD 48.8 fl (35.1-43.9); White Blood Count 6.5 K/mm3 (4.4-11.0)
[2024-08-12 14:30] LABS: ALB/GLOB Ratio 1.3 RATIO (0.9-2.4); AST(SGOT) 22 U/L (15-37); Alanine Aminotransfer ALT/SGPT 18 U/L (13-56); Albumin, Serum 3.6 g/dL (3.2-5.0); Alkaline Phosphatase 72 U/L (45-117); Anion Gap 5 (5-15); BUN 13 mg/dL (7-18); BUN/Creat Ratio 17.3 RATIO (10-20); Calcium,Total 8.9 mg/dL (8.5-10.1); Chloride 107 mmol/L (98-107); Cholesterol 177 mg/dL (200); Creatinine, Serum 0.75 mg/dL (0.55-1.02); EST Glomerular Filtration Rate 77 mL/min (>60); Est Glom Filt Rate - Afr Amer 93 mL/min (>60); Globulin 2.7 g/dL (2.2-4.2); Glucose 100 mg/dL (74-106); High Density Lipoprotein 84 mg/dL; Potassium 4.3 mmol/L (3.5-5.1); Protein, Total 6.3 g/dL (6.4-8.2); Sodium Level 139 mmol/L (136-145); Triglycerides 103 mg/dL; Very Low Density Lipoprotein 21 mg/dL (5-40)
== END | disposition home or self-care (01) ==
LOC: LAB 13:27
PROVIDERS: PCP Family Medicine Geriatric Medicine; Referring Provider Family Medicine Geriatric Medicine; Visit Provider Family Medicine Geriatric Medicine
DX: I10 Essential (primary) hypertension (principal); E55.9 Vitamin D deficiency, unspecified; E78.5 Hyperlipidemia, unspecified
CPT/HCPCS: 36415; 80053; 80061; 82306; 84443; 85025

== ENCOUNTER → 2024-12-15 | Outpatient (CLI) | payer MEDICARE, SELFPAY ==
[2024-12-15 17:53] LABS: Absolute Lymphocyte Count 1.99 X10^3/uL (0.83-4.51); Absolute Neutrophil Count 3.3 X10^3/uL (2.0-7.7); Basophil# 0.06 X10^3/uL; Basophil% 0.9 % (0-1); Eosinophil# 0.27 X10^3/uL; Eosinophils% 4.2 % (0-5); Hematocrit 39.5 % (37-47); Hemoglobin 12.8 g/dL (12.0-15.0); Lymphocyte # 1.99 X10^3/ul (0.83-4.51); Lymphocyte % 31.2 % (19-41); Mean Corp Hgb Conc 32.4 g/dL (32-36); Mean Corpuscular Hgb 30.5 pg (27.0-32.0); Mean Corpuscular Volume 94.3 fL (81-99); Mean Platelet Vol. 12.1 fl (6.2-12.0); Monocyte# 0.73 X10^3/uL; Monocyte% 11.4 % (0-10); NRBC Flagged by Analyzer 0 % (0-5); Neutrophil # 3.32 X10^3/uL (2.7-7.7); Neutrophil % 52.1 % (47-70); Platelet Count 210 K/mm3 (150-450); RBC Distribution Width CV 14.2 % (11.6-14.6); RBC Distribution Width SD 48.6 fl (35.1-43.9); Red Blood Count 4.19 M/mm3 (4.2-5.4); White Blood Count 6.4 K/mm3 (4.4-11.0)
[2024-12-15 18:40] LABS: ALB/GLOB Ratio 1.8 RATIO (0.9-2.4); AST(SGOT) 21 U/L (<=31); Alanine Aminotransfer ALT/SGPT 14 U/L (<=34); Albumin, Serum 4.1 g/dL (3.4-4.8); Alkaline Phosphatase 77 U/L (35-104); Anion Gap 14 (5-15); BUN 17 mg/dL (4-19); Calcium,Total 9.2 mg/dL (7.6-11.0); Carbon Dioxide 23.7 mmol/L (21.0-32.0); Chloride 105 mmol/L (98-108); EST Glomerular Filtration Rate 61 (>60); Globulin 2.3 g/dL (2.2-4.2); Glucose 98 mg/dL (70-99); Potassium 4.1 mmol/L (3.3-5.1); Protein, Total 6.3 g/dL (5.9-8.4); Sodium Level 143 mmol/L (133-145); Total Bilirubin 0.27 mg/dL (0.00-1.30)
== END | disposition home or self-care (01) ==
LOC: MTLAB 13:55
PROVIDERS: PCP Family Medicine Geriatric Medicine; Referring Provider Internal Medicine Rheumatology; Visit Provider Internal Medicine Rheumatology
DX: M06.00 Rheumatoid arthritis without rheumatoid factor, unspecified site (principal); Z79.899 Other long term (current) drug therapy; M19.041 Primary osteoarthritis, right hand; M16.0 Bilateral primary osteoarthritis of hip; M18.0 Bilateral primary osteoarthritis of first carpometacarpal joints; M19.042 Primary osteoarthritis, left hand
CPT/HCPCS: 36415; 80053; 85025

== ENCOUNTER → 2025-01-13 | Outpatient (CLI) | payer MEDICARE, SELFPAY ==
[2025-01-13 12:42] LABS: Absolute Lymphocyte Count 2.37 X10^3/uL (0.83-4.51); Absolute Neutrophil Count 3.9 X10^3/uL (2.0-7.7); Basophil# 0.06 X10^3/uL; Basophil% 0.8 % (0-1); Eosinophil# 0.24 X10^3/uL; Eosinophils% 3.3 % (0-5); Hematocrit 39.6 % (37-47); Hemoglobin 13.1 g/dL (12.0-15.0); Lymphocyte # 2.37 X10^3/ul (0.83-4.51); Lymphocyte % 32.9 % (19-41); Mean Corp Hgb Conc 33.1 g/dL (32-36); Mean Corpuscular Hgb 30.8 pg (27.0-32.0); Mean Platelet Vol. 12.1 fl (6.2-12.0); Monocyte# 0.67 X10^3/uL; Monocyte% 9.3 % (0-10); NRBC Flagged by Analyzer 0 % (0-5); Neutrophil # 3.85 X10^3/uL (2.7-7.7); Neutrophil % 53.4 % (47-70); Platelet Count 224 K/mm3 (150-450); RBC Distribution Width CV 14.4 % (11.6-14.6); RBC Distribution Width SD 49.2 fl (35.1-43.9); Red Blood Count 4.26 M/mm3 (4.2-5.4); White Blood Count 7.2 K/mm3 (4.4-11.0)
[2025-01-13 13:10] LABS: ALB/GLOB Ratio 1.9 RATIO (0.9-2.4); AST(SGOT) 21 U/L (<=31); Alanine Aminotransfer ALT/SGPT 18 U/L (<=34); Albumin, Serum 4.1 g/dL (3.4-4.8); Alkaline Phosphatase 70 U/L (35-104); Anion Gap 13 (5-15); BUN 13 mg/dL (4-19); BUN/Creat Ratio 14.7 RATIO (10-20); Calcium,Total 9.3 mg/dL (7.6-11.0); Carbon Dioxide 22.6 mmol/L (21.0-32.0); Chloride 103 mmol/L (98-108); Creatinine, Serum 0.86 mg/dL (0.70-1.20); EST Glomerular Filtration Rate 64 (>60); Globulin 2.1 g/dL (2.2-4.2); Glucose 93 mg/dL (70-99); Potassium 4.1 mmol/L (3.3-5.1); Protein, Total 6.3 g/dL (5.9-8.4); Sodium Level 138 mmol/L (133-145); Total Bilirubin 0.55 mg/dL (0.00-1.30)
== END | disposition home or self-care (01) ==
LOC: MTLAB 09:27
PROVIDERS: PCP Family Medicine Geriatric Medicine; Referring Provider Internal Medicine Rheumatology; Visit Provider Internal Medicine Rheumatology
DX: M06.00 Rheumatoid arthritis without rheumatoid factor, unspecified site (principal); M19.041 Primary osteoarthritis, right hand; M16.0 Bilateral primary osteoarthritis of hip; M18.0 Bilateral primary osteoarthritis of first carpometacarpal joints; Z79.899 Other long term (current) drug therapy
CPT/HCPCS: 36415; 80053; 85025

== ENCOUNTER → 2025-02-17 | Outpatient (CLI) | payer MEDICARE, SELFPAY ==
[2025-02-17 14:51] LABS: Absolute Lymphocyte Count 1.89 X10^3/uL (0.83-4.51); Absolute Neutrophil Count 4.2 X10^3/uL (2.0-7.7); Basophil# 0.06 X10^3/uL; Basophil% 0.9 % (0-1); Eosinophil# 0.14 X10^3/uL; Eosinophils% 2.1 % (0-5); Hematocrit 36.7 % (37-47); Hemoglobin 12.1 g/dL (12.0-15.0); Lymphocyte # 1.89 X10^3/ul (0.83-4.51); Lymphocyte % 28.5 % (19-41); Mean Corpuscular Hgb 31.4 pg (27.0-32.0); Mean Corpuscular Volume 95.3 fL (81-99); Mean Platelet Vol. 11.4 fl (6.2-12.0); Monocyte# 0.33 X10^3/uL; NRBC Flagged by Analyzer 0 % (0-5); Neutrophil # 4.21 X10^3/uL (2.7-7.7); Neutrophil % 63.3 % (47-70); Platelet Count 213 K/mm3 (150-450); RBC Distribution Width CV 15.2 % (11.6-14.6); RBC Distribution Width SD 52.3 fl (35.1-43.9); Red Blood Count 3.85 M/mm3 (4.2-5.4); White Blood Count 6.6 K/mm3 (4.4-11.0)
[2025-02-17 15:50] LABS: ALB/GLOB Ratio 1.9 RATIO (0.9-2.4); AST(SGOT) 20 U/L (<=31); Alanine Aminotransfer ALT/SGPT 16 U/L (<=34); Albumin, Serum 3.9 g/dL (3.4-4.8); Alkaline Phosphatase 71 U/L (35-104); Anion Gap 10 (5-15); BUN 20 mg/dL (4-19); BUN/Creat Ratio 21.3 RATIO (10-20); Calcium,Total 8.9 mg/dL (7.6-11.0); Carbon Dioxide 23.9 mmol/L (21.0-32.0); Chloride 106 mmol/L (98-108); Cholesterol 144 mg/dL (<=200); Creatinine, Serum 0.93 mg/dL (0.70-1.20); EST Glomerular Filtration Rate 59 (>60); Glucose 128 mg/dL (70-99); High Density Lipoprotein 71 mg/dL; Low Density Lipoprotein Calc. 52 mg/dL; Potassium 4.4 mmol/L (3.3-5.1); Protein, Total 5.9 g/dL (5.9-8.4); Sodium Level 139 mmol/L (133-145); Total Bilirubin 0.54 mg/dL (0.00-1.30); Triglycerides 107 mg/dL; Very Low Density Lipoprotein 21 mg/dL (5-40); Vitamin D,25 Hydroxy 32.8 ng/mL (30-100); cholesterol:hdl ratio screen 2.03
== END | disposition home or self-care (01) ==
PROVIDERS: PCP Family Medicine Geriatric Medicine; Referring Provider Family Medicine Geriatric Medicine; Visit Provider Family Medicine Geriatric Medicine
DX: I10 Essential (primary) hypertension (principal); E55.9 Vitamin D deficiency, unspecified; E78.5 Hyperlipidemia, unspecified
CPT/HCPCS: 36415; 80053; 80061; 82306; 84443; 85025

== ENCOUNTER → 2025-03-16 | Outpatient (CLI) | payer MEDICARE, SELFPAY ==
[2025-03-16 12:52] LABS: Absolute Lymphocyte Count 1.77 X10^3/uL (0.83-4.51); Basophil# 0.05 X10^3/uL; Basophil% 0.9 % (0-1); Eosinophil# 0.22 X10^3/uL; Hematocrit 37.6 % (37-47); Hemoglobin 12.3 g/dL (12.0-15.0); Lymphocyte # 1.77 X10^3/ul (0.83-4.51); Lymphocyte % 31.8 % (19-41); Mean Corp Hgb Conc 32.7 g/dL (32-36); Mean Corpuscular Hgb 31.3 pg (27.0-32.0); Mean Corpuscular Volume 95.7 fL (81-99); Mean Platelet Vol. 11.7 fl (6.2-12.0); Monocyte# 0.52 X10^3/uL; Monocyte% 9.4 % (0-10); NRBC Flagged by Analyzer 0 % (0-5); Neutrophil # 2.99 X10^3/uL (2.7-7.7); Neutrophil % 53.7 % (47-70); Platelet Count 196 K/mm3 (150-450); RBC Distribution Width CV 15.9 % (11.6-14.6); RBC Distribution Width SD 55.8 fl (35.1-43.9); Red Blood Count 3.93 M/mm3 (4.2-5.4); White Blood Count 5.6 K/mm3 (4.4-11.0)
[2025-03-16 13:21] LABS: ALB/GLOB Ratio 1.9 RATIO (0.9-2.4); AST(SGOT) 25 U/L (<=31); Alanine Aminotransfer ALT/SGPT 18 U/L (<=34); Alkaline Phosphatase 73 U/L (35-104); Anion Gap 12 (5-15); BUN 12 mg/dL (4-19); BUN/Creat Ratio 15.2 RATIO (10-20); Calcium,Total 8.7 mg/dL (7.6-11.0); Carbon Dioxide 21.7 mmol/L (21.0-32.0); Chloride 105 mmol/L (98-108); Creatinine, Serum 0.79 mg/dL (0.70-1.20); EST Glomerular Filtration Rate 72 (>60); Globulin 2.1 g/dL (2.2-4.2); Glucose 89 mg/dL (70-99); Potassium 4.2 mmol/L (3.3-5.1); Sodium Level 139 mmol/L (133-145); Total Bilirubin 0.55 mg/dL (0.00-1.30)
== END | disposition home or self-care (01) ==
LOC: MTLAB 09:17
PROVIDERS: PCP Family Medicine Geriatric Medicine; Referring Provider Internal Medicine Rheumatology; Visit Provider Internal Medicine Rheumatology
DX: M06.00 Rheumatoid arthritis without rheumatoid factor, unspecified site (principal); M19.041 Primary osteoarthritis, right hand; M16.0 Bilateral primary osteoarthritis of hip; M18.0 Bilateral primary osteoarthritis of first carpometacarpal joints; Z79.899 Other long term (current) drug therapy
CPT/HCPCS: 36415; 80053; 85025

== ENCOUNTER → 2025-05-09 | Outpatient (CLI) | payer MEDICARE, SELFPAY ==
--- NOTE | 2025-05-09 10:23 | RAD_ITS ---
PROCEDURE: SHOULDER MIN 2 VIEWS 05/09/2025 REASON FOR EXAM: SHOULDER PAIN TECHNIQUE: SHOULDER MIN 2 VIEWS COMPARISON: None. FINDINGS: Mild osteopenia of the visualized bones. Degenerative joint disease. No fracture or dislocation is seen. No lytic or blastic bone lesion is noted. RAD/Shoulder min 2 Views IMPRESSION: No radiographic evidence for acute abnormality. Degenerative joint disease of the acromioclavicular and glenohumeral joints. Reading [facility]
--- OUTSIDE RECORDS SUMMARY | 2025-05-09 21:32 | XMS RPT_ITS | CCD ---
Author Organization [facility] CliniSyil Care Team Providers Care Lesson Instructor Name Role Phone Kayode Villafuerte PA-C Unavailable [phone] Clifford, Dr. Sagar Shaikh Primary Care Provider Clifford, Dr. Sagar Shaikh Referring Provider [phone] Friend, Dr. Pulido Attending Provider Clifford, Dr. Sagar Shaikh Primary Care Provider Clifford, Dr. Sagar Shaikh Referring Provider [phone] Friend, Dr. Pulido Attending Provider KELSY Ugalde Attending Provider Clifford, Dr. Sagar Shaikh Primary Care Provider Clifford, Dr. Sagar Shaikh Referring Provider Friend, Dr. Pulido Attending Provider Reena DAN, MANAGEMENT TRAINEE-C Medina Gibbs Attending Provider [phone] KELSY Ugalde Attending Provider KELSY Wills Attending Provider [phone] KELSY Kulkarni Attending Provider Clifford, Dr. Sagar Shaikh Primary Care Provider [phone] Clifford, Dr. Sagar Shaikh Referring Provider [phone] Clifford, Dr. Sagar Shaikh Primary Care Provider Clifford, Dr. Sagar Shaikh Referring Provider Clifford, Dr. Sagar Shaikh Primary Care Provider Clifford, Dr. Sagar Shaikh Referring Provider Reena DAN, MANAGEMENT TRAINEE-C Medina Gibbs Attending Provider Clifford, Dr. Sagar Shaikh Primary Care Provider Clifford, Dr. Sagar Shaikh Referring Provider KELSY Ugalde Attending Provider KELSY Kulkarni Attending Provider Clifford, Dr. Sagar Shaikh Primary Care Provider Clifford, Dr. Sagar Shaikh Referring Provider KELSY Ugalde Attending Provider KELSY Kulkarni Attending Provider VIKRAM OSORIO Attending Unavailable CLIFFORD, SAGAR CHI Primary Care Unavailable GANGA GOMEZ Consulting Unavailable Clifford MICHAUD, Dr. Sagar Shaikh Primary Care Provider Moiz MICHAUD, Dr. Angulo Attending Provider Moiz MICHAUD, Dr. Angulo Referring Provider Clifford MICHAUD, Dr. Sagar Shaikh Attending Provider Clifford MICHAUD, Dr. Sagar Shaikh Referring Provider Clifford MICHAUD, Dr. Sagar Shaikh Primary Care Provider Moiz MICHAUD, Dr. Angulo Attending Provider Moiz MICHAUD, Dr. Angulo Referring Provider Servando Kulkarni Attending Provider [phone] Clifford, Sagar Chi Referring Unavailable Clifford, Sagar Chi Attending Unavailable Clifford, Sagar Chi Primary Care Unavailable Clifford, Sagar Chi Primary Care Unavailable Danilo, Helen AUTO TRAVEL COUNSELOR Referring Unavailabl e Danilo, Helen AUTO TRAVEL COUNSELOR Attending Unavailabl e Clifford, Sagar Chi Primary Care Unavailable Clifford, Sagar Chi Referring Unavailable Malys, Seda Attending Unavailable Clifford, Sagar Chi Attending Unavailable Clifford, Sagar Chi Primary Care Unavailable Clifford, Sagar Chi Primary Care Unavailable Clifford, Sagar Chi Referring Unavailable Malys, Seda Attending Unavailable Clifford, Sagar Chi Primary Care Unavailable Ungur, Remus Attending Unavailable Clifford, Sagar Chi Referring Unavailable Servando Kulkarni Attending Unavailable Clifford, Sagar Chi Primary Care Unavailable Vellanki, Adele Referring Unavailable Vellanki, Adele Attending Unavailable Clifford, Sagar Chi Primary Care Unavailable Vellanki, Adele Attending Unavailable Vellanki, Adele Referring Unavailable Clifford, Sagar Chi Primary Care Unavailable Clifford, Sagar Chi Referring Unavailable Clifford, Sagar Chi Attending Unavailable Clifford, Sagar Chi Primary Care Unavailable Vellanki, Adele Referring Unavailable Vellanki, Adele Attending Unavailable Clifford, Sagar Chi Primary Care Unavailable Vellanki, Adele Referring Unavailable Vellanki, Adele Attending Unavailable Clifford, Sagar Chi Primary Care Unavailable Allergies Allergy Classification Reported Allergen(s) Allergy Type Date of Onset Reaction(s) Facility (3 sources) lisinopril; Translations: [LISINOPRIL] Drug Allergy 05-30-2008 cough [facility] Work Phone: (2 sources) traMADol; Translations: [TRAMADOL] Drug Allergy 12-02-2011 dizziness [facility] Work Phone: Medications Current Medications Medication Drug Class(es) Dates Sig (Normalized) Sig (Original) acetaminophen 325 mg oral tablet (20 sources) Start: 11-15-2019 Acetaminophen 325 MG tablet Active 650 mg PO EVERY 6 HOURS NEEDED as needed for Pain Score 1-10/Temp > 100.7 F 100 0 November 15, 2019 1:00am Start: 11-15-2019 take 650 mg by mouth every six hours as needed Acetaminophen Active 650 MG PO EVERY 6 HOURS NEEDED 100 November 15, 2019 1:00am amoxicillin 875 mg / clavulanate 125 mg oral tablet (11 sources) Penicillin-class Antibacterial Start: 05-06-2025 Amoxicillin-Pot Clavulanate 875-125 mg tablet Active 1 {tbl} PO Q12H 20 10 May 06, 2025 12:00am May 15, 2025 12:00am Acute sinusitis, unspecified Start: 06-25-2024 End: 05-06-2025 Amoxicillin-Pot Clavulanate 875-125 mg tablet Discontinued 1 {tbl} PO TWICE A DAY June 25, 2024 12:00am May 06, 2025 7:57am Start: 03-02-2024 End: 03-03-2024 Amoxicillin-Pot Clavulanate 875-125 mg tablet Discontinued 1 {tbl} PO TWICE A DAY March 02, 2024 12:00am March 03, 2024 1:07pm biotin 1 mg oral capsule (5 sources) Start: 06-18-2024 take 1 capsule by mouth once daily Biotin 1 mg capsule Active 1 mg PO DAILY June 18, 2024 12:00am calcium carbonate 1250 mg / cholecalciferol 0.01 mg oral tablet (20 sources) Vitamin D Start: 02-10-2014 Calcium Carbonate-Vitamin D3 1 EACH tablet Active 1 NMA PO DAILY February 10, 2014 12:00am supplement Start: 02-10-2014 Calcium Carbon ate-Vitamin D3 Active 1 EACH PO DAILY February 10, 2014 12:00am hydroxychloroquine sulfate 200 mg oral tablet (20 sources) Antirheumatic Agent Start: 05-29-2019 Hydroxychloroquine 200 MG tablet Active 300 mg PO DAILY May 29, 2019 12:00am arthritis Start: 05-29-2019 take 300 mg by mouth once daily Hydroxychloroquine Active 300 MG PO DAILY May 29, 2019 12:00am Start: 12-02-2011 PLAQUENIL TABS HYDROXYCHLOROQUINE SULFATE TABS [id number] Eben Hernandez DO magnesium glycinate 100 mg oral tablet (5 sources) Start: 06-18-2024 take 1 tablet by mouth once daily Magnesium Glycinate (Mag Glycinate) 100 mg tablet Active 100 mg PO DAILY June 18, 2024 12:00am 24 hr metoprolol succinate 25 mg extended release oral tablet (20 sources) beta-Adrenergic Caprice Start: 05-29-2019 take 1 tablet by mouth once daily Metoprolol Succinate 25 MG tablet Active 25 mg PO DAILY May 29, 2019 12:00am bp/heart Start: 08-31-2017 TOPROL XL XR24 H-TAB as directed METOPROLOL SUCCINATE [id number]-FRM [id number] Kayode Villafuerte PA-C Start: 12-02-2011 METOPROLOL TAR TRATE TABS METOPROLOL TARTRATE TABS [id number] Eben Hernandez DO pramipexole dihydrochloride 0.125 mg oral tablet (15 sources) Nonergot Dopamine Agonist Start: 08-05-2023 take 0.125 mg by mouth at bedtime as needed PRAMIPEXOLE DIHYDROCHLORIDE Active 0.125 mg PO AT BEDTIME NEEDED August 05, 2023 12:00am INSOMNIA Completed/Discontinued Medications Medication Drug Class(es) Dates Sig (Normalized) Sig (Original) ALENDRONATE SODIUM TABS (2 sources) Bisphosphonate Start: 08-31-2017 FOSAMAX TABS as directed ALENDRONATE SODIUM TABS [id number] Kayode Villafuerte PA-C AMLODIPINE BESYLATE TABS (2 sources) Dihydropyridine Calcium Channel Caprice Start: 12-02-2011 NORVASC TABS AMLODIPINE BESYLATE TABS [id number] Eben Hernandez DO apixaban 2.5 mg oral tablet (20 sources) Factor Xa Inhibitor Start: 11-15-2019 End: 06-14-2020 take 1 tablet by mouth twice daily Apixaban 2.5 MG tablet Discontinued 2.5 mg PO TWICE A DAY 28 0 November 15, 2019 1:00am June 14, 2020 9:34am aspirin 325 mg oral tablet (20 sources) Platelet Aggregation Inhibitor, Nonsteroidal Anti-inflammatory Drug Start: 02-10-2014 End: 02-23-2014 take 1 tablet by mouth once daily Aspirin 325 MG tablet Discontinued 325 mg PO DAILY@0800 February 10, 2014 12:00am February 23, 2014 7:34am budesonide 3 mg delayed release oral capsule (20 sources) Corticosteroid Start: 08-09-2020 End: 07-04-2021 Budesonide 3 mg capsule,delayed,ex tend.release Discontinued mg PO August 09, 2020 1:00am July 04, 2021 2:44pm Start: 08-09-2020 End: 07-04-2021 Budesonide Discontinued MG P O August 09, 2020 1:00am July 04, 2021 2:44pm calcium carbonate (2 sources) Start: 12-02-2011 CALCIUM CARBONATE TABS CALCIUM CARBONATE TABS [id number] Eben Hernandez DO cephalexin 500 mg oral capsule (20 sources) Cephalosporin Antibacterial Start: 07-22-2022 End: 07-15-2023 take 1 capsule by mouth twice daily Cephalexin 500 mg capsule Discontinued 500 mg PO TWICE A DAY 10 0 July 22, 2022 12:00am July 15, 2023 2:57pm cholecalciferol 0.25 mg oral capsule (20 sources) Vitamin D Start: 02-10-2014 End: 08-05-2023 Cholecalciferol (Vitamin D3) 10,000 UNIT capsule Discontinued 25 mg PO DAILY February 10, 2014 12:00am August 05, 2023 9:22am supplement Start: 02-10-2014 End: 08-05-2023 take 25 mg by mouth once daily Cholecalciferol (Vitamin D3) Discontinued 25 MG PO DAILY February 10, 2014 12:00am August 05, 2023 9:22am Start: 12-02-2011 VITAMIN D CAPS CHOLECALCIFEROL CAPS [id number] Eben Hernandez DO sugar-free cholestyramine resin 4000 mg powder for oral suspension (20 sources) Bile Acid Sequestrant Start: 11-13-2019 End: 06-14-2020 take 4 g by mouth once daily Cholestyramine-Aspartame 4 GM powder in packet Discontinued 1 NMA PO DAILY November 13, 2019 1:00am June 14, 2020 9:34am diarrhea colestipol hydrochloride 1000 mg oral tablet (20 sources) Bile Acid Sequestrant Start: 06-24-2022 End: 03-03-2024 Colestipol 1 gram tablet Discontinued 1 g PO TWICE A DAY 180 3 November 14, 2022 12:02pm March 03, 2024 1:08pm diarrhea 1 ml denosumab 60 mg/ml prefilled syringe (20 sources) RANK Ligand Inhibitor Start: 05-29-2019 End: 08-05-2023 Denosumab 60 MG/ML syringe Discontinued 60 mg SQ .6MONTHS May 29, 2019 12:00am August 05, 2023 9:22am arthritis LAST DOSE 09/2019 Start: 05-29-2019 End: 08-05-2023 Denosumab Discontinued 60 MG SQ .6MONTHS May 29, 2019 12:00am August 05, 2023 9:22am LAST DOSE 09/2019 diclofenac sodium 0.01 mg/mg topical gel (20 sources) Nonsteroidal Anti-inflammatory Drug Start: 08-09-2020 End: 02-26-2022 apply 2 g topically four times daily as needed for pain Diclofenac Sodium (Voltaren) 1 % gel Discontinued 2 g TOPICAL .QID as needed for pain, moderate 100 0 August 09, 2020 1:00am February 26, 2022 10:18am apply to painful . doxepin hydrochloride 10 mg oral capsule (20 sources) Tricyclic Antidepressant Start: 07-04-2021 End: 02-26-2022 take 1 capsule by mouth at bedtime as needed Doxepin 10 mg capsule Discontinued 10 mg PO AT BEDTIME as needed July 04, 2021 12:00am February 26, 2022 10:18am doxycycline hyclate 100 mg oral capsule (20 sources) Tetracycline-class Drug Start: 07-25-2021 End: 02-26-2022 take 1 capsule by mouth twice daily Doxycycline Hyclate 100 mg capsule Discontinued 100 mg PO TWICE A DAY 14 August 22, 2021 4:01pm February 26, 2022 10:18am famotidine 8 mg/ml oral suspension (20 sources) Histamine-2 Receptor Antagonist Start: 04-23-2017 End: 09-26-2017 take 40 mg by mouth once daily Famotidine (Pepcid) 40 MG/5 ML Oral.Susp Discontinued 40 mg PO DAILY April 23, 2017 12:00am September 26, 2017 11:27am fish oil (4 sources) Start: 12-02-2011 End: 08-31-2017 FISH OIL CAPS OMEGA-3 FATTY ACIDS CAPS [id number] Kayode Villafuerte PA-C Start: 12-02-2011 FISH OIL CAPS OMEGA-3 FATTY ACIDS CAPS [id number] Eben Hernandez DO folic acid 1 mg oral tablet (20 sources) Start: 05-02-2022 End: 08-05-2023 take 1 tablet by mouth once daily Folic Acid 1 mg tablet Discontinued 1 mg PO DAILY 30 0 May 02, 2022 12:00am August 05, 2023 9:23am melatonin 10 mg oral capsule (20 sources) Start: 07-04-2021 End: 08-05-2023 take 1 capsule by mouth at bedtime as needed for sleep Melatonin 10 mg capsule Discontinued 10 mg PO BEDTIME as needed for Sleep July 04, 2021 12:00am August 05, 2023 9:23am methylPREDNISolone acetate 40 mg/ml injectable suspension (2 sources) Corticosteroid Start: 08-09-2020 End: 08-09-2020 Depo-Medrol (methylprednisolon e acetate) 40 mg/mL suspension for injection Discontinued 20 MG INTRAARTIC ONCE 0.5 August 09, 2020 1:50pm August 09, 2020 2:30pm nortriptyline 50 mg oral capsule (4 sources) Tricyclic Antidepressant End: 08-31-2017 NORTRIPTYLINE HCL 50 MG CAPS NORTRIPTYLINE HCL [id number] Eben Hernandez DO oxyCODONE hydrochloride 5 mg oral tablet (20 sources) Opioid Agonist Start: 11-15-2019 End: 12-15-2019 take 5-10 mg by mouth every four hours as needed for pain Oxycodone 5 MG tablet Discontinued 5 - 10 mg PO EVERY 4 HOURS NEEDED as needed for Pain Score 4-5/10 60 0 November 15, 2019 December 15, 2019 10:21am Other acute postprocedural pain PRAVASTATIN SODIUM TABS (2 sources) HMG-CoA Reductase Inhibitor Start: 12-02-2011 PRAVASTATIN SODIUM TABS PRAVASTATIN SODIUM TABS [id number] Eben Hernandez DO PREDNISONE (2 sources) Corticosteroid Start: 08-31-2017 End: 09-06-2017 PREDNISONE 10 MG (21) TBPK 6 pills/day, then 5/day, 4/day, 3/day, 2/day, 1/day PREDNISONE [id number] Kayode Villafuerte PA-C rifAXIMin 550 mg oral tablet (20 sources) Rifamycin Antibacterial Start: 07-04-2021 End: 06-24-2022 take 1 tablet by mouth three times daily Rifaximin (Xifaxan) 550 mg tablet Discontinued 550 mg PO THREE TIMES A DAY 42 July 04, 2021 12:00am June 24, 2022 11:57am sulfaSALAzine 500 mg delayed release oral tablet (20 sources) Aminosalicylate Start: 05-02-2022 End: 06-24-2022 take 1 g by mouth twice daily Sulfasalazine 500 mg tablet,delayed release (DR/EC) Discontinued 1 g PO TWICE A DAY 120 30 May 02, 2022 3:19pm June 24, 2022 11:57am Start: 05-02-2022 End: 06-24-2022 take 1 g by mouth twice daily Sulfasalazine Discontinu ed 1 GM PO TWICE A DAY 120 30 May 02th, 2022 3:19pm June 24, 2022 11:57am thiamine 250 mg oral tablet (20 sources) Start: 05-29-2019 End: 07-04-2021 take 1 tablet by mouth once daily Thiamine Hcl (Vitamin B1) 250 MG tablet Discontinued 250 mg PO DAILY May 29, 2019 12:00am July 04, 2021 2:44pm supplement LEVOTHYROXINE SODIUM TABS (20 sources) l-Thyroxi ne Start: 08-31-2017 SYNTHROID TABS as directed LEVOTHYROXINE SODIUM TABS [id number] Kayode Villafuerte PA-C Start: 07-23-2013 take 1 tablet by enrique th once daily Levothyroxine 75 MCG tablet Active 75 ug PO DAILY July 23, 2013 12:00am thyroid Start: 12-02-2011 LEVOTHYROXINE SODIUM TABS LEVOTHYROXINE SODIUM TABS [id number] Eben Hernandez DO vitamin b12 0.5 mg oral tablet (20 sources) Vitamin B12 Start: 02-10-2014 End: 03-03-2024 take 1 tablet by mouth once daily Cyanocobalamin (Vitamin B-12) 500 MCG tablet Discontinued 500 ug PO DAILY@0800 February 10, 2014 12:00am March 03, 2024 1:08pm supplement WARFARIN SODIUM TABS (4 sources) Vitamin K Antagonist Start: 12-02-2011 WARFARIN SODIUM TABS WARFARIN SODIUM TABS [id number] Eben Hernandez DO Start: 12-02-2011 End: 08-31-2017 WARFARIN SODIUM TABS WARFARIN SODIUM TABS [id number] Kayode Villafuerte PA-C zolpidem tartrate 5 mg oral tablet (20 sources) gamma-Aminobutyric Acid-ergic Agonist Start: 07-23-2013 End: 06-14-2020 take 1 tablet by mouth at bedtime as needed Zolpidem 5 MG tablet Discontinued 5 mg PO AT BEDTIME NEEDED as needed for Insomnia July 23, 2013 12:00am June 14, 2020 9:33am Start: 12-02-2011 AMBIEN TABS 20 09/06/27 ZOLPIDEM TARTRATE TABS [id number] Eben D Hernandez DO Problems Active Problems Problem Classification Problem Date Documented Da te Episodic/Chronic Aortic; peripheral; and visceral artery aneurysms (5 sources) Aneurysm of renal artery; 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 Comment on above: CT- images reviewed, 8 mm aneurysm at distal left renal artery with significant calcification; upon review of CT from 2022 was present and similar size Chronic ulcer of skin (20 sources) Ulcer of lower extremity; Translations: [Non-pressure chronic ulcer of unspecified part of right lower leg with fat layer exposed] Onset: 4 10-21-2023 Chronic Disorders of lipid metabolism (20 sources) Hyperlipidemia; Translations: [Hyperlipidemia, unspecified] Onset: 4 08-05-2023 Chronic E Codes: Fall (5 sources) Fall; Translations: [Unspecified fall, initial encounter] 07-27-2024 Episodic Esophageal disorders (20 sources) Gastroesophageal reflux disease; Translations: [Gastro-esophageal reflux disease without esophagitis] Onset: 4 Chronic Essential hypertension (20 sources) Hypertensive disorder; Translations: [Essential (primary) hypertension] Onset: 4 Chronic Fracture of lower limb (20 sources) Fracture of patella; Translations: [Unspecified fracture of unspecified patella, initial encounter for closed fracture] 06-11-2020 Episodic Fracture of upper limb (20 sources) Fracture of distal end of radius; Translations: [Unspecified fracture of the lower end of left radius, initial encounter for closed fracture] 06-14-2020 Episodic Noninfectious gastroenteritis (20 sources) Microscopic colitis; Translations: [Microscopic colitis, unspecified] Chronic Osteoarthritis (20 sources) Arthritis; Translations: [Unspecified osteoarthritis, unspecified site] Onset: 4 Chronic Osteoporosis (20 sources) Osteoporosis; Translations: [Age-related osteoporosis without current pathological fracture] Chronic Other and ill-defined cerebrovascular disease (20 sources) Intracranial aneurysm; 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, nonruptured] 11-07-2019 Chronic Other circulatory disease (20 sources) History of cerebral aneurysm; Translations: [Personal history of other diseases of the circulatory system] 02-26-2022 Episodic Other circulatory disease (20 sources) History of transient ischemic attack; Translations: [Personal history of transient ischemic attack (TIA), and cerebral infarction without residual deficits] 02-26-2022 Episodic Other circulatory disease (2 sources) Personal history of other diseases of the circulatory system; Translations: [Personal history of other diseases of circulatory system] Episodic Other circulatory disease (20 sources) Personal history of transient ischemic attack (TIA), and cerebral infarction without residual deficits; Translations: [Personal history of transient ischemic attack (TIA), and cerebral infarction without residual deficits] Episodic Other connective tissue disease (20 sources) Presence of left artificial knee joint; Translations: [Knee joint replacement] Chronic Other connective tissue disease (15 sources) History of total knee arthroplasty; Translations: [Presence of left artificial knee joint] 08-05-2023 Chronic Other connective tissue disease (20 sources) Pain in right lower limb; Translations: [Pain in right leg] 02-26-2022 Episodic Other diseases of veins and lymphatics (20 sources) Peripheral venous insufficiency; Translations: [Venous insufficiency (chronic) (peripheral)] 02-26-2022 Episodic Other fractures (1 source) Unspecified displaced fracture of second cervical vertebra, initial encounter for closed fracture; Translations: [Closed odontoid fracture, initial encounter ([facility])] Onset: 4 Episodic Other fractures (1 source) Other displaced fracture of first cervical vertebra, initial encounter for closed fracture; Translations: [Closed fracture of anterior arch of atlas, initial encounter ([facility])] Onset: 4 Episodic Other fractures (5 sources) Fracture of second cervical vertebra; Translations: [Unspecified displaced fracture of second cervical vertebra, initial encounter for closed fracture] 07-27-2024 Episodic Other fractures (5 sources) Fracture of first cervical vertebra; Translations: [Unspecified displaced fracture of first cervical vertebra, initial encounter for closed fracture] 07-27-2024 Episodic Other gastrointestinal disorders (20 sources) Small bowel bacterial overgrowth syndrome; Translations: [Other specified diseases of intestine] 08-22-2021 Episodic Other gastrointestinal disorders (20 sources) Diarrhea; Translations: [Diarrhea, unspecified] 05-02-2022 Episodic Other gastrointestinal disorders (4 sources) Diarrhea, unspecified; Translations: [Diarrhea] Episodic Other injuries and conditions due to external causes (20 sources) Closed injury of head; Translations: [Unspecified injury of head, initial encounter] 06-12-2020 Episodic Other injuries and conditions due to external causes (20 sources) H/O: fracture; Translations: [Personal history of (healed) traumatic fracture] 02-26-2022 Episodic Other injuries and conditions due to external causes (2 sources) Personal history of (healed) traumatic fracture; Translations: [Personal history of traumatic fracture] Episodic Other upper respiratory infections (20 sources) Sinusitis; Translations: [Chronic sinusitis, unspecified] 05-30-2019 Chronic Phlebitis; thrombophlebitis and thromboembolism (20 sources) H/O: Deep vein thrombosis; Translations: [Personal history of other venous thrombosis and embolism] Episodic Pulmonary heart disease (20 sources) Pulmonary embolism; Translations: [Other pulmonary embolism without acute cor pulmonale] Episodic Residual codes; unclassified (20 sources) History of repair of aneurysm of abdominal aorta; Translations: [Other specified postprocedural states] 11-07-2019 Episodic Residual codes; unclassified (15 sources) Past history of procedure; Translations: [Other specified postprocedural states] 08-05-2023 Episodic Rheumatoid arthritis and related disease (1 source) Rheumatoid arthritis without rheumatoid factor, unspecified site; Translations: [Rheumatoid arthritis without rheumatoid factor, unspecified site] Onset: 5 Chronic Skull and face fractures (20 sources) Fractured nasal bones; Translations: [Fracture of nasal bones, initial encounter for closed fracture] 06-12-2020 Episodic Sprains and strains (20 sources) Strain of neck muscle; Translations: [Strain of muscle, fascia and tendon at neck level, initial encounter] 07-15-2023 Episodic Superficial injury; contusion (20 sources) Contusion of knee; Translations: [Contusion of unspecified knee, initial encounter] Onset: 4 Episodic Thyroid disorders (20 sources) Hypothyroidism; Translations: [Hypothyroidism, unspecified] Onset: 4 Chronic Transient cerebral ischemia (20 sources) Transient cerebral ischemia; Translations: [Transient cerebral ischemic attack, unspecified] 11-07-2019 Chronic Varicose veins of lower extremity (20 sources) Varicose vein of leg with phlebitis; Translations: [Varicose veins of right lower extremity with inflammation] Episodic Past or Other Problems Problem Classification Problem Date Documented Date Episodic/Chronic Open wounds of extremities (20 sources) Laceration of right lower leg; Translations: [Laceration without foreign body, right lower leg, initial encounter] Onset: 07-05-2024 Episodic Open wounds of extremities (20 sources) Laceration of hand; Translations: [Laceration without foreign body of left hand, initial encounter] Onset: 07-06-2024 Episodic Other connective tissue disease (3 sources) Pain in right leg; Translations: [Pain in limb] Onset: 07-06-2024 Episodic Other connective tissue disease (1 source) Other specified soft tissue disorders; Translations: [Other specified soft tissue disorders] Onset: 07-06-2024 Episodic Other diseases of veins and lymphatics (20 sources) Venous insufficiency (chronic) (peripheral); Translations: [Venous (peripheral) insufficiency, unspecified] Onset: 07-06-2024 Episodic Other injuries and conditions due to external causes (1 source) Unspecified injury of left lower leg, initial encounter; Translations: [Unspecified injury of left lower leg, initial encounter] Onset: 11-18-2024 Episodic Other non-traumatic joint disorders (1 source) Effusion, left knee; Translations: [Effusion, left knee] Onset: 08-18-2024 Episodic Other skin disorders (2 sources) Maculopapular eruption; Translations: [Rash and other nonspecific skin eruption] Onset: 08-31-2017 08-31-2017 Episodic Residual codes; unclassified (20 sources) Other specified postprocedural states; Translations: [Other postprocedural status] Onset: 07-06-2024 Episodic Skin and subcutaneous tissue infections (20 sources) Cellulitis of left lower limb; Translations: [Cellulitis of left lower limb] Onset: 07-06-2024 08-05-2023 Episodic Results Test Name Value Interpretation Reference Range Facility Urgent Care Visit Reporton 0 05-06-2025 Urgent Care Visit Report [facility] [address], [address] [place] [address] OFFICE VISIT Date of Service: 05/06/25 MR#: [id number] Acct: [id number] Name: MONY,BASHIR M Rep #: [id number] : 1935 Provider: KELSY Duran Age/Sex: 89/F Location: [facility] Status: Signed Intake Vital Signs 07/19/24 15:08 05/06/25 07:57 Height 5 ft 2 in 5 ft 2 in Weight: 122 lb 6 oz BMI 22.4 BP 110/68 Position Sitting Respiration 18 Pulse 76 Temp 98.3 F Temp Source Oral Pulse Oximetry (%) 97 Oxygen Delivery Method room air Intake Visit Reasons: CAT SCRATCH ON L LEG Chief Complaint: Cat bite on leg Accompanied by: Self Allergies No Known Allergies Allergy (Verified 05/06/25 07:56) Medications ???Medication ???Instructions ???Recorded ???Confirmed ???Type levothyroxine 75 mcg tablet 75 mcg PO DAILY thyroid 07/23/13 0 05/06/25 History calcium 500 mg (as 1 ea PO DAILY supplement 02/10/14 05/06/25 History carbonate)-vitamin D3 10 mcg (400 unit) tablet hydroxychloroquine 200 mg tablet 300 mg PO DAILY arthritis 05/29/19 05/06/25 History metoprolol succinate 25 mg 25 mg PO DAILY bp/heart 05/29/19 0 05/06/25 History tablet,extended release 24 hr acetaminophen 325 mg tablet 650 mg (2 x 325 mg) PO Q6H PRN PRN 11/15/19 05/06/25 Rx Pain Score 1-10/Temp > 100.7 F #100 tabs PRAMIPEXOLE DIHYDROCHLORIDE 0.125 mg PO QHS PRN INSOMNIA 08/0505/06/25 History biotin 1 mg capsule 1 mg PO DAILY 06/18/24 05/06/25 Hi story magnesium glycinate 100 mg (as 100 mg PO DAILY 06/18/24 05/06/25 History glycinate) tablet (Mag Glycinate) amoxicillin 875 mg-potassium 1 tab PO Q12H 10 days #20 tabs 10/3005/06/25 Rx clavulanate 125 mg tablet Have you fallen in the past year?: No Nurse's Note: Patient cat scratched her left leg last weekend. Patient leg around the scratch is red, warm and swollen a little. 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 layer exposed Cellulitis of left lower limb Hyperlipidemia Laceration of left lower leg with complication Skin tear of left lower leg without complication Cervical myofascial strain Contusion, nose Laceration of left hand Forehead abrasion Laceration of right lower leg Arthritis Varicose veins of both lower extremities with inflammation Chronic venous insufficiency Right leg pain History of TIA (transient ischemic attack) History of cerebral aneurysm History of patellar fracture Osteoporosis History of deep vein thrombosis History of pulmonary embolism Small intestinal bacterial overgrowth Microscopic colitis Diarrhea Surgical History History of total left knee replacement History of breast biopsy History of right knee surgery History of carpal tunnel release Family History Father CVA (cerebral vascular accident) Mother CVA (cerebral vascular accident) Social History Smoking Status: Never smoker alcohol intake: current alcohol intake frequency: a few times a month HPI HPI Chief Complaint: Cat bite on leg Details: BASHIR SYKES, is a 89 F who presents to the office today for complaint of cat bite to the left leg. Patient states this happened approximately 5 days ago however has been red and irritated more recently. She denies numbness, tingling or loss of range of motion to the leg. No fever, chills, sweats. Patient states she is up-to-date on her tetanus. No other associated symptoms or alleviating/aggravat ing factors. ROS Const Constitutional: No other (as above) Exam Const General: cooperative and healthy appearing Resp Effort Inspection: normal respiratory effort Cardio Rate: regular rate Skin General: no rashes or lesions noted Neuro General: patient alert Psych Appearance: grossly normal Mental Status: mental status grossly normal Coding Level of Care Code Off vis,est,level 3 Diagnoses Cat bite of left lower leg S81.852A; W55.01XA Assessment and Plan Assessment and Plan (1) Cat bite of left lower leg: Status: Acute Plan: Augmentin as prescribed today. Encouraged to get plenty of rest, drink lots of clear liquids, and use Tylenol or Ibuprofen (unless contraindicated) for fever and comfort. Patient also educated on other symptomatic management techniques. To be seen in 7-10 days if no improvement; sooner if worsening of symptoms. Patient advised of potential red flags and when appropriate to report to the ED. Patient verbalized unde (more content not included)... Normal [facility] Absolute lymphocyte countOrd ered By: Adeleangelica Rockwell on 03-16-2025 Lymphocytes Auto (Unsp spec) [#/Vol] 1.77 10*3/uL 0.83-4.51 [facility] Absolute neutrophil countOrd ered By: [facility] Moiz on 03-16-2025 Neutrophils (Bld) [#/Vol] 3.0 10*3/uL 2.0-7.7 [facility] Anion gap in Serum or Plasma Ordered By: Adele Rockwell on 03-16-2025 Anion gap [Moles/Vol] 12 mmol/L 5- [facility] Automated lymphocyte count a s percentage of total leukocytesOrdered By: Adele Rockwell on 03-16-2025 Lymphocytes/100 WBC Auto (Unsp spec) 31.8 % - [facility] BUN/creatinine ratioOrdered By: [facility] Moiz on 03-16-2025 Urea nitrogen/Creatinine [Mass ratio] 15.2 mg/mg 10- [facility] Basophil percentageOrdered B y: Adele Rockwell on 03-16-2025 Basophils/100 WBC (Bld) 0.9 % 0-1 [facility] Bilirubin, totalOrdered By: Adele Rockwell on 03-16-2025 Bilirubin [Mass/Vol] 0.55 mg/dL 0.00-1.30 [facility] CBC W/Diff, Automatedon 03-06 Absolute Lymph 1.77 X10 3/uL Normal 0.83-4.51 [facility] Comment on above: Performed By: #### L 100.0100, L500.4050 #### [facility] [address] [place], [address] Absolute Neut 3.0 X10 3/uL Normal 2.0-7.7 [facility] Comment on above: Performed By: #### L 100.0100, L500.4050 #### [facility] [address] [place], [address] Basophils/100 WBC (Bld) 0.9 % Normal 0-1 [facility] Comment on above: Performed By: #### L 100.0100, L500.4050 #### [facility] [address] [place], [address] Eosinophils/100 WBC (Bld) 4.0 % Normal 0-5 [facility] Comment on above: Performed By: #### L 100.0100, L500.4050 #### [facility] [address] [place], [address] Erythrocyte distribution width (RBC) [Ratio] 15.9 % High 11.6-14.6 [facility] Comment on above: Performed By: #### L 100.0100, L500.4050 #### [facility] [address] [place], [address] Hematocrit (Bld) [Volume fraction] 37.6 % Normal 37-47 [facility] Comment on above: Performed By: #### L 100.0100, L500.4050 #### [facility] [address] [place], [address] Hemoglobin (Bld) [Mass/Vol] 12.3 g/dL Normal 12.0-15.0 [facility] Comment on above: Performed By: #### L 100.0100, L500.4050 #### [facility] [address] [place], [address] IG% 0.200 Normal 0.0-0.9 [facility] Comment on above: Result Comment: IG% - Immature Granulocytes (promyelocytes, myelocytes and metamyelocytes) > 1% indicates that a LEFT SHIFT is Present. Performed By: #### L 100.0100, L500.4050 #### [facility] [address] [place], [address] Lymphocytes/100 WBC (Bld) 31.8 % Normal 19-41 [facility] Comment on above: Performed By: #### L 100.0100, L500.4050 #### [facility] [address] [place], [address] MCH (RBC) [Entitic mass] 31.3 pg Normal 27.0-32.0 [facility] Comment on above: Performed By: #### L 100.0100, L500.4050 #### [facility] [address] [place], [address] MCHC (RBC) [Mass/Vol] 32.7 g/dL Normal 32-36 [facility] Comment on above: Performed By: #### L 100.0100, L500.4050 #### [facility] [address] [place], [address] MCV (RBC) [Entitic vol] 95.7 fL Normal 81-99 [facility] Comment on above: Performed By: #### L 100.0100, L500.4050 #### [facility] [address] [place], [address] Monocytes/100 WBC (Bld) 9.4 % Normal 0-10 [facility] Comment on above: Performed By: #### L 100.0100, L500.4050 #### [facility] [address] [place], [address] Neutrophils/100 WBC (Bld) 53.7 % Normal 47-70 [facility] Comment on above: Performed By: #### L 100.0100, L500.4050 #### [facility] [address] [place], [address] Nucleated RBC (Bld) [#/Vol] 0 10*3/uL Normal 0-5 [facility] Comment on above: Performed By: #### L 100.0100, L500.4050 #### [facility] [address] [place], [address] Platelet mean volume (Bld) [Entitic vol] 11.7 fL Normal 6.2-12.0 [facility] Comment on above: Performed By: #### L 100.0100, L500.4050 #### [facility] [address] [place], [address] Platelets (Bld) [#/Vol] 196 10*3/uL Normal 150-450 [facility] Comment on above: Performed By: #### L 100.0100, L500.4050 #### [facility] [address] [place], [address] RBC (Bld) [#/Vol] 3.93 10*6/uL Low 4.2-5.4 [facility] Comment on above: Performed By: #### L 100.0100, L500.4050 #### [facility] [address] [place], [address] RDW SD 55.8 fl High 35.1-43.9 [facility] Comment on above: Performed By: #### L 100.0100, L500.4050 #### [facility] [address] [place], [address] WBC (Bld) [#/Vol] 5.6 10*3/uL Normal 4.4-11.0 [facility] Comment on above: Performed By: #### L 100.0100, L500.4050 #### [facility] [address] [place], [address] Carbon dioxide, total [Moles /volume] in Central venous bloodOrdered By: Adele Rockwell on 03-16-2025 CO2 [Moles/Vol] 21.7 mmol/L 21.0-32.0 [facility] Chloride assayOrdered By: Kelsy Rockwell on 03-16-2025 Chloride [Moles/Vol] 105 mmol/L 98-108 [facility] Comprehensive Metabolic Prof ilon 03-16-2025 Albumin [Mass/Vol] 4.0 g/dL Normal 3.4-4.8 [facility] Comment on above: Performed By: #### L 100.0100, L500.4050 #### [facility] [address] [place], [address] Albumin/Globulin [Mass ratio] 1.9 {ratio} Normal 0.9-2.4 [facility] Comment on above: Performed By: #### L 100.0100, L500.4050 #### [facility] [address] [place], [address] ALK PHOS 73 U/L Normal 35-104 [facility] Comment on above: Performed By: #### L 100.0100, L500.4050 #### [facility] [address] [place], [address] ALT [Catalytic activity/Vol] 18 U/L Normal <=34 [facility] Comment on above: Performed By: #### L 100.0100, L500.4050 #### [facility] [address] [place], [address] AST [Catalytic activity/Vol] 25 U/L Normal <=31 [facility] Comment on above: Performed By: #### L 100.0100, L500.4050 #### [facility] [address] [place], [address] Bilirubin [Mass/Vol] 0.55 mg/dL Normal 0.00-1.30 [facility] Comment on above: Performed By: #### L 100.0100, L500.4050 #### [facility] [address] [place], [address] BUN/CRE 15.2 RATIO Normal 10-20 [facility] Comment on above: Performed By: #### L 100.0100, L500.4050 #### [facility] [address] [place], [address] Calcium [Mass/Vol] 8.7 mg/dL Normal 7.6-11.0 [facility] Comment on above: Performed By: #### L 100.0100, L500.4050 #### [facility] [address] [place], [address] Chloride [Moles/Vol] 105 mmol/L Normal 98-108 [facility] Comment on above: Performed By: #### L 100.0100, L500.4050 #### [facility] [address] [place], [address] CO2 [Moles/Vol] 21.7 mmol/L Normal 21.0-32.0 [facility] Comment on above: Performed By: #### L 100.0100, L500.4050 #### [facility] [address] [place], [address] Creatinine [Mass/Vol] 0.79 mg/dL Normal 0.70-1.20 [facility] Comment on above: Performed By: #### L 100.0100, L500.4050 #### [facility] [address] [place], [address] GAP 12 Normal 5-15 [facility] Comment on above: Performed By: #### L 100.0100, L500.4050 #### [facility] [address] [place], [address] GFR/1.73 sq M.predicted among non-blacks MDRD (S/P/Bld) [Vol rate/Area] 72 mL/min/{1.73_m2} Normal >60 [facility] Comment on above: Result Comment: mL/m in/1.73m2 CKD-EPI Creatinine Equation (2020) Performed By: #### L 100.0100, L500.4050 #### [facility] [address] [place], [address] Globulin (S) [Mass/Vol] 2.1 g/dL Low 2.2-4.2 [facility] Comment on above: Performed By: #### L 100.0100, L500.4050 #### [facility] [address] [place], [address] Glucose [Mass/Vol] 89 mg/dL Normal 70-99 [facility] Comment on above: Performed By: #### L 100.0100, L500.4050 #### [facility] [address] [place], [address] Potassium [Moles/Vol] 4.2 mmol/L Normal 3.3-5.1 [facility] Comment on above: Performed By: #### L 100.0100, L500.4050 #### [facility] [address] [place], [address] Sodium [Moles/Vol] 139 mmol/L Normal 133-145 [facility] Comment on above: Performed By: #### L 100.0100, L500.4050 #### [facility] [address] [place], [address] T PROT 6.0 g/dL Normal 5.9-8.4 [facility] Comment on above: Performed By: #### L 100.0100, L500.4050 #### [facility] [address] [place], [address] Urea nitrogen [Mass/Vol] 12 mg/dL Normal 4-19 [facility] Comment on above: Performed By: #### L 100.0100, L500.4050 #### [facility] [address] [place], [address] Eosinophil percentageOrdered By: Adele Rockwell on 03-16-2025 Eosinophils/100 WBC (Bld) 4.0 % 0-5 [facility] Erythrocyte distribution wid th ratioOrdered By: Adele Rockwell on 03-16-2025 Erythrocyte distribution width (RBC) [Ratio] 15.9 % High 11.6-14.6 [facility] Erythrocyte distribution wid th standard deviationOrdered By: Adele Rockwell on 03-16-2025 Erythrocyte distribution width (RBC) [Ratio] 55.8 fl High 35.1-43.9 [facility] Glomerular filtration rate ( GFR) estimation/1.73 sq m using serum, plasma, or whole bOrdered By: Adele Rockwell on 03-16-2025 GFR/1.73 sq M.predicted among non-blacks MDRD (S/P/Bld) [Vol rate/Area] 72 mL/min/{1.73_m2} >60 [facility] Comment on above: mL/min/1.73m2 CKD-EP I Creatinine Equation (2020) Hematocrit Auto (Bld) [Volum e fraction]Ordered By: Adele Rockwell on 03-16-2025 Hematocrit (Bld) [Volume fraction] 37.6 % 37-47 [facility] Hemoglobin measurementOrdere d By: Adele Rockwell on 03-16-2025 Hemoglobin (Bld) [Mass/Vol] 12.3 g/dL 12.0-15.0 [facility] Immature granulocytes/100 WB C Auto (Bld)Ordered By: Adele Rockwell on 03-16-2025 Immature granulocytes/100 WBC (Bld) 0.200 % 0.0-0.9 [facility] Comment on above: IG% - Immature Granu locytes (promyelocytes, myelocytes and metamyelocytes) > 1% indicates that a LEFT SHIFT is Present. Laboratory - Chemistry and C hemistry - challengeOrdered By: Adele Rockwell on 03-16-2025 AST [Catalytic activity/Vol] 25 U/L <32 [facility] MCV (mean corpuscular volume ) determinationOrdered By: Adele Rockwell on 03-16-2025 MCV (RBC) [Entitic vol] 95.7 fL 81-99 [facility] Mean corpuscular hemoglobin (MCH) determinationOrdered By: Adele Rockwell 03-16-2025 MCH (RBC) [Entitic mass] 31.3 pg 27.0-32.0 [facility] Mean corpuscular hemoglobin concentration (MCHC) determinationOrdered By: Adele Rockwell on 03-16-2025 MCHC (RBC) [Mass/Vol] 32.7 g/dL 32-36 [facility] Mean platelet volume determi nationOrdered By: Adele Rockwell on 03-16-2025 Platelet mean volume (Bld) [Entitic vol] 11.7 fL 6.2-12.0 [facility] Monocyte percentageOrdered B y: Adele Rockwell on 03-16-2025 Monocytes/100 WBC (Bld) 9.4 % 0-10 [facility] Neutrophil percentageOrdered By: Adele Rockwell on 03-16-2025 Neutrophils/100 WBC (Bld) 53.7 % 47-70 [facility] Nucleated red blood cell per centageOrdered By: Adele Rockwell on 03-16-2025 Nucleated RBC/100 WBC (Bld) [Ratio] 0 % 0-5 [facility] Platelet countOrdered By: Kelsy Rockwell on 03-16-2025 Platelets (Bld) [#/Vol] 196 10*3/uL 150-450 [facility] Potassium measurement (mass/ volume)Ordered By: Adele Rockwell on 03-16-2025 Potassium (Unsp spec) [Mass/Vol] 4.2 mmol/L 3.3-5.1 [facility] RBC Auto (Bld) [#/Vol]Ordere d By: Adele Rockwell on 03-16-2025 RBC (Bld) [#/Vol] 3.93 10*6/uL Low 4.2-5.4 [facility] Serum creatinine measurement (mass/volume)Ordered By: Adele Rockwell on 03-16-2025 Creatinine [Mass/Vol] 0.79 mg/dL 0.70-1.20 [facility] Serum globulin measurementOr dered By: Adele Rockwell on 03-16-2025 Globulin (S) [Mass/Vol] 2.1 g/dL Low 2.2-4.2 [facility] Serum glucose measurement (m ass/volume)Ordered By: Adele Rockwell on 03-16-2025 Glucose [Mass/Vol] 89 mg/dL 70-99 [facility] Serum or plasma alanine springer otransferase (ALT) measurementOrdered By: Adele Rockwell on 03-16-2025 ALT [Catalytic activity/Vol] 18 U/L <35 [facility] Serum or plasma albumin amalia urement (mass/volume)Ordered By: Adele Rockwell on 03-16-2025 Albumin [Mass/Vol] 4.0 g/dL 3.4-4.8 [facility] Serum or plasma albumin/glob ulin mass ratioOrdered By: Adele Rockwell on 03-16-2025 Albumin/Globulin [Mass ratio] 1.9 {ratio} 0.9-2.4 [facility] Serum or plasma alkaline elliott sphatase measurementOrdered By: Adele Rockwell on 03-16-2025 ALP [Catalytic activity/Vol] 73 U/L 35-104 [facility] Serum or plasma calcium amalia urement (mass/volume)Ordered By: Adele Rockwell on 03-16-2025 Calcium [Mass/Vol] 8.7 mg/dL 7.6-11.0 [facility] Serum or plasma urea nitroge n measurement (mass/volume)Ordered By: Adele Rockwell on 03-16-2025 Urea nitrogen [Mass/Vol] 12 mg/dL 4-19 [facility] Sodium levelOrdered By: Michel Rockwell on 03-16-2025 Sodium [Moles/Vol] 139 mmol/L 133-145 [facility] Total proteinOrdered By: Hardeep Rockwell on 03-16-2025 Protein [Mass/Vol] 6.0 g/dL 5.9-8.4 [facility] White blood cell (WBC) count Ordered By: Adele Rockwell on 03-16-2025 WBC (Bld) [#/Vol] 5.6 10*3/uL 4.4-11.0 [facility] Absolute lymphocyte countOrd ered By: Sagar Horton on 02-17-2025 Lymphocytes Auto (Unsp spec) [#/Vol] 1.89 10*3/uL 0.83-4.51 [facility] Absolute neutrophil countOrd ered By: Sagar Horton on 02-17-2025 Neutrophils (Bld) [#/Vol] 4.2 10*3/uL 2.0-7.7 [facility] Anion gap in Serum or Plasma Ordered By: Sagar Horton on 02-17-2025 Anion gap [Moles/Vol] 10 mmol/L 02-17 [facility] Automated lymphocyte count a s percentage of total leukocytesOrdered By: Sagar Horton on 02-17-2025 Lymphocytes/100 WBC Auto (Unsp spec) 28.5 % [facility] BUN/creatinine ratioOrdered By: Sagar Horton on 02-17-2025 Urea nitrogen/Creatinine [Mass ratio] 21.3 mg/mg High 10- [facility] Basophil percentageOrdered B y: Sagar Horton on 02-17-2025 Basophils/100 WBC (Bld) 0.9 % 0-1 [facility] Bilirubin, totalOrdered By: Sagar Horton on 02-17-2025 Bilirubin [Mass/Vol] 0.54 mg/dL 0.00-1.30 [facility] CBC W/Diff, Automatedon 02-03 Absolute Lymph 1.89 X10 3/uL Normal 0.83-4.51 [facility] Comment on above: Performed By: #### L 506.1001, L501.9520, L100.0100, L500.4050, L500.4100 ####[facility] [address] [place], [address] Absolute Neut 4.2 X10 3/uL Normal 2.0-7.7 [facility] Comment on above: Performed By: #### L 506.1001, L501.9520, L100.0100, L500.4050, L500.4100 ####[facility] [address] [place], [address] Basophils/100 WBC (Bld) 0.9 % Normal 0-1 [facility] Comment on above: Performed By: #### L 506.1001, L501.9520, L100.0100, L500.4050, L500.4100 ####[facility] [address] [place], [address] Eosinophils/100 WBC (Bld) 2.1 % Normal 0-5 [facility] Comment on above: Performed By: #### L 506.1001, L501.9520, L100.0100, L500.4050, L500.4100 ####[facility] [address] [place], [address] Erythrocyte distribution width (RBC) [Ratio] 15.2 % High 11.6-14.6 [facility] Comment on above: Performed By: #### L 506.1001, L501.9520, L100.0100, L500.4050, L500.4100 ####[facility] [address] [place], [address] Hematocrit (Bld) [Volume fraction] 36.7 % Low 37-47 [facility] Comment on above: Performed By: #### L 506.1001, L501.9520, L100.0100, L500.4050, L500.4100 ####[facility] [address] [place], [address] Hemoglobin (Bld) [Mass/Vol] 12.1 g/dL Normal 12.0-15.0 [facility] Comment on above: Performed By: #### L 506.1001, L501.9520, L100.0100, L500.4050, L500.4100 ####[facility] [address] [place], [address] IG% 0.200 Normal 0.0-0.9 [facility] Comment on above: Result Comment: IG% - Immature Granulocytes (promyelocytes, myelocytes and metamyelocytes) > 1% indicates that a LEFT SHIFT is Present. Performed By: #### L 506.1001, L501.9520, L100.0100, L500.4050, L500.4100 ####[facility] [address] [place], [address] Lymphocytes/100 WBC (Bld) 28.5 % Normal 19-41 [facility] Comment on above: Performed By: #### L 506.1001, L501.9520, L100.0100, L500.4050, L500.4100 ####[facility] [address] [place], [address] MCH (RBC) [Entitic mass] 31.4 pg Normal 27.0-32.0 [facility] Comment on above: Performed By: #### L 506.1001, L501.9520, L100.0100, L500.4050, L500.4100 ####[facility] [address] [place], [address] MCHC (RBC) [Mass/Vol] 33.0 g/dL Normal 32-36 [facility] Comment on above: Performed By: #### L 506.1001, L501.9520, L100.0100, L500.4050, L500.4100 ####[facility] [address] [place], [address] MCV (RBC) [Entitic vol] 95.3 fL Normal 81-99 [facility] Comment on above: Performed By: #### L 506.1001, L501.9520, L100.0100, L500.4050, L500.4100 ####[facility] [address] [place], [address] Monocytes/100 WBC (Bld) 5.0 % Normal 0-10 [facility] Comment on above: Performed By: #### L 506.1001, L501.9520, L100.0100, L500.4050, L500.4100 ####[facility] [address] [place], [address] Neutrophils/100 WBC (Bld) 63.3 % Normal 47-70 [facility] Comment on above: Performed By: #### L 506.1001, L501.9520, L100.0100, L500.4050, L500.4100 ####[facility] [address] [place], [address] Nucleated RBC (Bld) [#/Vol] 0 10*3/uL Normal 0-5 [facility] Comment on above: Performed By: #### L 506.1001, L501.9520, L100.0100, L500.4050, L500.4100 ####[facility] [address] [place], [address] Platelet mean volume (Bld) [Entitic vol] 11.4 fL Normal 6.2-12.0 [facility] Comment on above: Performed By: #### L 506.1001, L501.9520, L100.0100, L500.4050, L500.4100 ####[facility] [address] [place], [address] Platelets (Bld) [#/Vol] 213 10*3/uL Normal 150-450 [facility] Comment on above: Performed By: #### L 506.1001, L501.9520, L100.0100, L500.4050, L500.4100 ####[facility] [address] [place], [address] RBC (Bld) [#/Vol] 3.85 10*6/uL Low 4.2-5.4 [facility] Comment on above: Performed By: #### L 506.1001, L501.9520, L100.0100, L500.4050, L500.4100 ####[facility] [address] [place], [address] RDW SD 52.3 fl High 35.1-43.9 [facility] Comment on above: Performed By: #### L 506.1001, L501.9520, L100.0100, L500.4050, L500.4100 ####[facility] [address] [place], [address] WBC (Bld) [#/Vol] 6.6 10*3/uL Normal 4.4-11.0 [facility] Comment on above: Performed By: #### L 506.1001, L501.9520, L100.0100, L500.4050, L500.4100 ####[facility] [address] [place], [address] Calculated very low density lipoprotein (VLDL) cholesterol measurementOrdered By: Sagar Horton on 02-17-2025 Calculated very low density lipoprotein (VLDL) cholesterol measurement 21 mg/dL 5-40 [facility] Carbon dioxide, total [Moles /volume] in Central venous bloodOrdered By: Sagar Horton on 02-17-2025 CO2 [Moles/Vol] 23.9 mmol/L 21.0-32.0 [facility] Chloride assayOrdered By: Jack Horton on 02-17-2025 Chloride [Moles/Vol] 106 mmol/L 98-108 [facility] Comprehensive Metabolic Prof ilon 02-17-2025 Albumin [Mass/Vol] 3.9 g/dL Normal 3.4-4.8 [facility] Comment on above: Performed By: #### L 506.1001, L501.9520, L100.0100, L500.4050, L500.4100 ####[facility] [address] [place], [address] Albumin/Globulin [Mass ratio] 1.9 {ratio} Normal 0.9-2.4 [facility] Comment on above: Performed By: #### L 506.1001, L501.9520, L100.0100, L500.4050, L500.4100 ####[facility] [address] [place], [address] ALK PHOS 71 U/L Normal 35-104 [facility] Comment on above: Performed By: #### L 506.1001, L501.9520, L100.0100, L500.4050, L500.4100 ####[facility] [address] [place], [address] ALT [Catalytic activity/Vol] 16 U/L Normal <=34 [facility] Comment on above: Performed By: #### L 506.1001, L501.9520, L100.0100, L500.4050, L500.4100 ####[facility] [address] [place], [address] AST [Catalytic activity/Vol] 20 U/L Normal <=31 [facility] Comment on above: Performed By: #### L 506.1001, L501.9520, L100.0100, L500.4050, L500.4100 ####[facility] [address] [place], [address] Bilirubin [Mass/Vol] 0.54 mg/dL Normal 0.00-1.30 [facility] Comment on above: Performed By: #### L 506.1001, L501.9520, L100.0100, L500.4050, L500.4100 ####[facility] [address] [place], [address] BUN/CRE 21.3 RATIO High 10-20 [facility] Comment on above: Performed By: #### L 506.1001, L501.9520, L100.0100, L500.4050, L500.4100 ####[facility] [address] [place], [address] Calcium [Mass/Vol] 8.9 mg/dL Normal 7.6-11.0 [facility] Comment on above: Performed By: #### L 506.1001, L501.9520, L100.0100, L500.4050, L500.4100 ####[facility] [address] [place], [address] Chloride [Moles/Vol] 106 mmol/L Normal 98-108 [facility] Comment on above: Performed By: #### L 506.1001, L501.9520, L100.0100, L500.4050, L500.4100 ####[facility] [address] [place], [address] CO2 [Moles/Vol] 23.9 mmol/L Normal 21.0-32.0 [facility] Comment on above: Performed By: #### L 506.1001, L501.9520, L100.0100, L500.4050, L500.4100 ####[facility] [address] [place], [address] Creatinine [Mass/Vol] 0.93 mg/dL Normal 0.70-1.20 [facility] Comment on above: Performed By: #### L 506.1001, L501.9520, L100.0100, L500.4050, L500.4100 ####[facility] [address] [place], [address] GAP 10 Normal 5-15 [facility] Comment on above: Performed By: #### L 506.1001, L501.9520, L100.0100, L500.4050, L500.4100 ####[facility] [address] [place], [address] GFR/1.73 sq M.predicted among non-blacks MDRD (S/P/Bld) [Vol rate/Area] 59 mL/min/{1.73_m2} Low >60 [facility] Comment on above: Result Comment: mL/m in/1.73m2 CKD-EPI Creatinine Equation (2020) Performed By: #### L 506.1001, L501.9520, L100.0100, L500.4050, L500.4100 ####[facility] [address] [place], [address] Globulin (S) [Mass/Vol] 2.0 g/dL Low 2.2-4.2 [facility] Comment on above: Performed By: #### L 506.1001, L501.9520, L100.0100, L500.4050, L500.4100 ####[facility] [address] [place], [address] Glucose [Mass/Vol] 128 mg/dL High 70-99 [facility] Comment on above: Performed By: #### L 506.1001, L501.9520, L100.0100, L500.4050, L500.4100 ####[facility] [address] [place], [address] Potassium [Moles/Vol] 4.4 mmol/L Normal 3.3-5.1 [facility] Comment on above: Performed By: #### L 506.1001, L501.9520, L100.0100, L500.4050, L500.4100 ####[facility] [address] [place], [address] Sodium [Moles/Vol] 139 mmol/L Normal 133-145 [facility] Comment on above: Performed By: #### L 506.1001, L501.9520, L100.0100, L500.4050, L500.4100 ####[facility] [address] [place], [address] T PROT 5.9 g/dL Normal 5.9-8.4 [facility] Comment on above: Performed By: #### L 506.1001, L501.9520, L100.0100, L500.4050, L500.4100 ####[facility] [address] [place], [address] Urea nitrogen [Mass/Vol] 20 mg/dL High 4-19 [facility] Comment on above: Performed By: #### L 506.1001, L501.9520, L100.0100, L500.4050, L500.4100 ####[facility] [address] [place], [place], [id number] Eosinophil percentageOrdered By: [facility] on 02-17-2025 Eosinophils/100 WBC (Bld) 2.1 % 0-5 [facility] Erythrocyte distribution wid th ratioOrdered By: [facility] on 02-17-2025 Erythrocyte distribution width (RBC) [Ratio] 15.2 % High 11.6-14.6 [facility] Erythrocyte distribution wid th standard deviationOrdered By: [facility] on 02-17-2025 Erythrocyte distribution width (RBC) [Ratio] 52.3 fl High 35.1-43.9 [facility] Glomerular filtration rate ( GFR) estimation/1.73 sq m using serum, plasma, or whole bOrdered By: [facility] on 02-17-2025 GFR/1.73 sq M.predicted among non-blacks MDRD (S/P/Bld) [Vol rate/Area] 59 mL/min/{1.73_m2} Low >60 [facility] Comment on above: mL/min/1.73m2 CKD-EP I Creatinine Equation (2020) Hematocrit Auto (Bld) [Volum e fraction]Or[facility] Hematocrit (Bld) [Volume fraction] 36.7 % Low 37-47 [facility] Hemoglobin measurementOrdere d By: [facility] 02-17-2025 Hemoglobin (Bld) [Mass/Vol] 12.1 g/dL 12.0-15.0 [facility] Immature granulocytes/100 WB C Auto (Bld)Ordered By: [facility] 02-17-2025 Immature granulocytes/100 WBC (Bld) 0.200 % 0.0-0.9 [facility] Comment on above: IG% - Immature Granu locytes (promyelocytes, myelocytes and metamyelocytes) > 1% indicates that a LEFT SHIFT is Present. LDL calc ser/plasOrdered By: Sagar Horton on 02-17-2025 Cholesterol in LDL [Mass/Vol] 52 mg/dL [facility] Comment on above: Arrkmgbuzv=777-197 m g/dL & Higher Fwwv=200 mg/dL or greater Laboratory - Chemistry and C hemistry - challengeOrdered By: Sagar Horton on 02-17-2025 AST [Catalytic activity/Vol] 20 U/L <32 [facility] Lipid Profileon 02-17-2025 CHOL:HDL 2.03 Normal [facility] Comment on above: Performed By: #### L 506.1001, L501.9520, L100.0100, L500.4050, L500.4100 ####[facility] [address] [place], [address] Cholesterol [Mass/Vol] 144 mg/dL Normal <=200 [facility] Comment on above: Result Comment: Chol esterol level, Desirable <200 mg/dL Borderline high cholesterol 200-239 mg/dL High cholesterol >=240 mg/dL Recommendations of the NCEP Adult Treatment Panel for the following risk-cutoff thresholds for the [place] population. Performed By: #### L 506.1001, L501.9520, L100.0100, L500.4050, L500.4100 ####[facility] [address] [place], [address] Cholesterol in HDL [Mass/Vol] 71 mg/dL Normal [facility] Comment on above: Result Comment: [place] Cholesterol Education Program (NCEP) guidelines: <40 mg/dL: Low HDL-cholesterol (major risk factor for CHD) >= 60 mg/dL: High HDL-cholesterol (negative risk factor for CHD) HDL-cholesterol is affected by a number of factors, e.g. smoking, exercise, hormones, sex and age. Performed By: #### L 506.1001, L501.9520, L100.0100, L500.4050, L500.4100 ####[facility] [address] [place], [address] Cholesterol in LDL [Mass/Vol] 52 mg/dL Normal [facility] Comment on above: Result Comment: Bord hzxwfn=772-827 mg/dL Higher Mage=658 mg/dL or greater Performed By: #### L 506.1001, L501.9520, L100.0100, L500.4050, L500.4100 ####[facility] [address] [place], [place], [id number] Cholesterol in VLDL [Mass/Vol] 21 mg/dL Normal 5-40 [facility] Comment on above: Performed By: #### L 506.1001, L501.9520, L100.0100, L500.4050, L500.4100 ####[facility] [address] [place], [place], [phone] Triglyceride [Mass/Vol] 107 mg/dL Normal [facility] Comment on above: Result Comment: The drugs N-Acetylcysteine and Metamizole may falsely depress this assay. Normal range: <150 mg/dL Borderline High: 150-199 mg/dL High: 200-499 mg/dL Very High: >500 mg/dL Performed By: #### L 506.1001, L501.9520, L100.0100, L500.4050, L500.4100 ####[facility] [address] [place], [place], [id number] MCV (mean corpuscular volume ) determinationOrdered By: Sagar Horton on 02-17-2025 MCV (RBC) [Entitic vol] 95.3 fL 81-99 [facility] Mean corpuscular hemoglobin (MCH) determinationOrdered By: Sagar Horton on 02-17-2025 MCH (RBC) [Entitic mass] 31.4 pg 27.0-32.0 [facility] Mean corpuscular hemoglobin concentration (MCHC) determinationOrdered By: Sagar Horton on 02-17-2025 MCHC (RBC) [Mass/Vol] 33.0 g/dL 32-36 [facility] Mean platelet volume determi nationOrdered By: Sagar Horton on 02-17-2025 Platelet mean volume (Bld) [Entitic vol] 11.4 fL 6.2-12.0 [facility] Monocyte percentageOrdered B y: Sagar Horton on 02-17-2025 Monocytes/100 WBC (Bld) 5.0 % 0-10 [facility] Neutrophil percentageOrdered By: Sagar Horton on 02-17-2025 Neutrophils/100 WBC (Bld) 63.3 % 47-70 [facility] Nucleated red blood cell per centageOrdered By: Sagar Horton on 02-17-2025 Nucleated RBC/100 WBC (Bld) [Ratio] 0 % 0-5 [facility] Platelet countOrdered By: Jack Horton on 02-17-2025 Platelets (Bld) [#/Vol] 213 10*3/uL 150-450 [facility] Potassium measurement (mass/ volume)Ordered By: Sagar Horton on 02-17-2025 Potassium (Unsp spec) [Mass/Vol] 4.4 mmol/L 3.3-5.1 [facility] RBC Auto (Bld) [#/Vol]Ordere d By: Sagar Horton on 02-17-2025 RBC (Bld) [#/Vol] 3.85 10*6/uL Low 4.2-5.4 [facility] Screening total cholesterol/ high density lipoprotein (HDL) cholesterol ratioOrdered By: Sagar Horton 02-17-2025 Cholesterol.total/Choles terol in HDL [Mass ratio] 2.03 {ratio} [facility] Serum creatinine measurement (mass/volume)Ordered By: Sagar Horton 02-17-2025 Creatinine [Mass/Vol] 0.93 mg/dL 0.70-1.20 [facility] Serum globulin measurementOr dered By: Sagar Horton 02-17-2025 Globulin (S) [Mass/Vol] 2.0 g/dL Low 2.2-4.2 [facility] Serum glucose measurement (m ass/volume)Ordered By: Sagar Horton 02-17-2025 Glucose [Mass/Vol] 128 mg/dL High 70-99 [facility] Serum or plasma alanine springer otransferase (ALT) measurementOrdered By: Sagar Horton 02-17-2025 ALT [Catalytic activity/Vol] 16 U/L <35 [facility] Serum or plasma albumin amalia urement (mass/volume)Ordered By: Sagar Clifford 02-17-2025 Albumin [Mass/Vol] 3.9 g/dL 3.4-4.8 [facility] Serum or plasma albumin/glob ulin mass ratioOrdered By: Sagar Clifford02-17-2025 Albumin/Globulin [Mass ratio] 1.9 {ratio} 0.9-2.4 [facility] Serum or plasma alkaline elliott sphatase measurementOrdered By: Sagar Clifford 02-17-2025 ALP [Catalytic activity/Vol] 71 U/L 35-104 [facility] Serum or plasma calcium amalia urement (mass/volume)Ordered By: Sagar Clifford 02-17-2025 Calcium [Mass/Vol] 8.9 mg/dL 7.6-11.0 [facility] Serum or plasma cholesterol in HDL measurement (mass/volume)Ordered By: Sagar Clifford 02-17-2025 Cholesterol in HDL [Mass/Vol] 71 mg/dL >40 [facility] Comment on above: National Cholesterol Education Program (NCEP) guidelines:<40 mg/dL: Low HDL-cholesterol (major risk factor for CHD)>= 60 mg/dL: High HDL-cholesterol (negative risk factor for CHD)HDL-cholesterol is affected by a number of factors, e.g. smoking, exercise, hormones, sex and age. Serum or plasma cholesterol measurement (mass/volume)Ordered By: Sagar Clifford 02-17-2025 Cholesterol [Mass/Vol] 144 mg/dL <201 [facility] Comment on above: Cholesterol level, D esirable <200 mg/dLBorderline high cholesterol 200-239 mg/dLHigh cholesterol >=240 mg/dLRecommendations of the NCEP Adult Treatment Panel for the following risk-cutoff thresholds for the [place] population. Serum or plasma urea nitroge n measurement (mass/volume)Ordered By: Sagar Horton 02-17-2025 Urea nitrogen [Mass/Vol] 20 mg/dL High 4-19 [facility] Sodium levelOrdered By: Sagar Clifford 02-17-2025 Sodium [Moles/Vol] 139 mmol/L 133-145 [facility] TSH DL <= 0.005 mIU/L QnOrde red By: Sagar Horton on 02-17-2025 TSH Qn 1.100 uIU/mL 0.300-4.200 [facility] Thyroid Stim Hormone (TSH)on 02-17-2025 TSH 1.100 uIU/mL Normal 0.300-4.200 [facility] Comment on above: Performed By: #### L 506.1001, L501.9520, L100.0100, L500.4050, L500.4100 ####[facility] [address] [place], [place], [id number] Total proteinOrdered By: Sagar Horton on 02-17-2025 Protein [Mass/Vol] 5.9 g/dL 5.9-8.4 [facility] Triglycerides measurementOrd ered By: Sagar Horton on 02-17-2025 Triglyceride [Mass/Vol] 107 mg/dL <199 [facility] Comment on above: The drugs N-Acetylcy steine and Metamizole may falsely depress this assay. Normal range: <150 mg/dLBorderline High: 150-199 mg/dLHigh: 200-499 mg/dLVery High: >500 mg/dL Vitamin D,25 Hydroxyon 02-17 Vitamin D 25-OH 32.8 ng/mL Normal 30-100 [facility] Comment on above: Result Comment: Melani min D Status Deficiency: <20 ng/mL (50nmol/L) Insufficiency: 20-30 ng/mL (50-75 nmol/L) Sufficiency: 30-100 ng/mL (75-250 nmol/L) Toxicity: >100 ng/mL (>250 nmol/L) Performed By: #### L 506.1001, L501.9520, L100.0100, L500.4050, L500.4100 ####[facility] [address] [place], [place], [id number] White blood cell (WBC) count Ordered By: Sagar Horton on 02-17-2025 WBC (Bld) [#/Vol] 6.6 10*3/uL 4.4-11.0 [facility] Absolute lymphocyte countOrd ered By: Adeleangelica Rockwell on 01-13-2025 Lymphocytes Auto (Unsp spec) [#/Vol] 2.37 10*3/uL 0.83-4.51 [facility] Absolute neutrophil countOrd ered By: [facility] Moiz on 01-13-2025 Neutrophils (Bld) [#/Vol] 3.9 10*3/uL 2.0-7.7 [facility] Anion gap in Serum or Plasma Ordered By: Adele Rockwell on 01-13-2025 Anion gap [Moles/Vol] 13 mmol/L 5- [facility] Automated lymphocyte count a s percentage of total leukocytesOrdered By: Adeleangelica Rockwell on 01-13-2025 Lymphocytes/100 WBC Auto (Unsp spec) 32.9 % [facility] BUN/creatinine ratioOrdered By: [facility] Moiz on 01-13-2025 Urea nitrogen/Creatinine [Mass ratio] 14.7 mg/mg 07-25 [facility] Basophil percentageOrdered B y: Adele Rockwell on 01-13-2025 Basophils/100 WBC (Bld) 0.8 % 0-1 [facility] Bilirubin, totalOrdered By: Adele Rockwell on 01-13-2025 Bilirubin [Mass/Vol] 0.55 mg/dL 0.00-1.30 [facility] CBC W/Diff, Automatedon 01-04 Absolute Lymph 2.37 X10 3/uL Normal 0.83-4.51 [facility] Comment on above: Performed By: #### L 100.0100, L500.4050 #### [facility] [address] [place], [address] Absolute Neut 3.9 X10 3/uL Normal 2.0-7.7 [facility] Comment on above: Performed By: #### L 100.0100, L500.4050 #### [facility] [address] [place], [address] Basophils/100 WBC (Bld) 0.8 % Normal 0-1 [facility] Comment on above: Performed By: #### L 100.0100, L500.4050 #### [facility] [address] [place], [address] Eosinophils/100 WBC (Bld) 3.3 % Normal 0-5 [facility] Comment on above: Performed By: #### L 100.0100, L500.4050 #### [facility] [address] [place], [address] Erythrocyte distribution width (RBC) [Ratio] 14.4 % Normal 11.6-14.6 [facility] Comment on above: Performed By: #### L 100.0100, L500.4050 #### [facility] [address] [place], [address] Hematocrit (Bld) [Volume fraction] 39.6 % Normal 37-47 [facility] Comment on above: Performed By: #### L 100.0100, L500.4050 #### [facility] [address] [place], [address] Hemoglobin (Bld) [Mass/Vol] 13.1 g/dL Normal 12.0-15.0 [facility] Comment on above: Performed By: #### L 100.0100, L500.4050 #### [facility] [address] [place], [address] IG% 0.300 Normal 0.0-0.9 [facility] Comment on above: Result Comment: IG% - Immature Granulocytes (promyelocytes, myelocytes and metamyelocytes) > 1% indicates that a LEFT SHIFT is Present. Performed By: #### L 100.0100, L500.4050 #### [facility] [address] [place], [address] Lymphocytes/100 WBC (Bld) 32.9 % Normal 19-41 [facility] Comment on above: Performed By: #### L 100.0100, L500.4050 #### [facility] [address] [place], [address] MCH (RBC) [Entitic mass] 30.8 pg Normal 27.0-32.0 [facility] Comment on above: Performed By: #### L 100.0100, L500.4050 #### [facility] [address] [place], [address] MCHC (RBC) [Mass/Vol] 33.1 g/dL Normal 32-36 [facility] Comment on above: Performed By: #### L 100.0100, L500.4050 #### [facility] [address] [place], [address] MCV (RBC) [Entitic vol] 93.0 fL Normal 81-99 [facility] Comment on above: Performed By: #### L 100.0100, L500.4050 #### [facility] [address] [place], [address] Monocytes/100 WBC (Bld) 9.3 % Normal 0-10 [facility] Comment on above: Performed By: #### L 100.0100, L500.4050 #### [facility] [address] [place], [address] Neutrophils/100 WBC (Bld) 53.4 % Normal 47-70 [facility] Comment on above: Performed By: #### L 100.0100, L500.4050 #### [facility] [address] [place], [address] Nucleated RBC (Bld) [#/Vol] 0 10*3/uL Normal 0-5 [facility] Comment on above: Performed By: #### L 100.0100, L500.4050 #### [facility] [address] [place], [address] Platelet mean volume (Bld) [Entitic vol] 12.1 fL High 6.2-12.0 [facility] Comment on above: Performed By: #### L 100.0100, L500.4050 #### [facility] [address] [place], [address] Platelets (Bld) [#/Vol] 224 10*3/uL Normal 150-450 [facility] Comment on above: Performed By: #### L 100.0100, L500.4050 #### [facility] [address] [place], [address] RBC (Bld) [#/Vol] 4.26 10*6/uL Normal 4.2-5.4 [facility] Comment on above: Performed By: #### L 100.0100, L500.4050 #### [facility] [address] [place], [address] RDW SD 49.2 fl High 35.1-43.9 [facility] Comment on above: Performed By: #### L 100.0100, L500.4050 #### [facility] [address] [place], [address] WBC (Bld) [#/Vol] 7.2 10*3/uL Normal 4.4-11.0 [facility] Comment on above: Performed By: #### L 100.0100, L500.4050 #### [facility] [address] [place], [address] Carbon dioxide, total [Moles /volume] in Central venous bloodOrdered By: Adele Rockwell on 01-13-2025 CO2 [Moles/Vol] 22.6 mmol/L 21.0-32.0 [facility] Chloride assayOrdered By: Kelsy Rockwell on 01-13-2025 Chloride [Moles/Vol] 103 mmol/L 98-108 [facility] Comprehensive Metabolic Prof ilon 01-13-2025 Albumin [Mass/Vol] 4.1 g/dL Normal 3.4-4.8 [facility] Comment on above: Performed By: #### L 100.0100, L500.4050 #### [facility] [address] [place], [address] Albumin/Globulin [Mass ratio] 1.9 {ratio} Normal 0.9-2.4 [facility] Comment on above: Performed By: #### L 100.0100, L500.4050 #### [facility] [address] [place], [address] ALK PHOS 70 U/L Normal 35-104 [facility] Comment on above: Performed By: #### L 100.0100, L500.4050 #### [facility] [address] [place], [address] ALT [Catalytic activity/Vol] 18 U/L Normal <=34 [facility] Comment on above: Performed By: #### L 100.0100, L500.4050 #### [facility] [address] [place], [address] AST [Catalytic activity/Vol] 21 U/L Normal <=31 [facility] Comment on above: Performed By: #### L 100.0100, L500.4050 #### [facility] [address] [place], [address] Bilirubin [Mass/Vol] 0.55 mg/dL Normal 0.00-1.30 [facility] Comment on above: Performed By: #### L 100.0100, L500.4050 #### [facility] [address] [place], [address] BUN/CRE 14.7 RATIO Normal 10-20 [facility] Comment on above: Performed By: #### L 100.0100, L500.4050 #### [facility] [facility] [address] [place], [address] Calcium [Mass/Vol] 9.3 mg/dL Normal 7.6-11.0 [facility] Comment on above: Performed By: #### L 100.0100, L500.4050 #### [facility] [address] [place], [address] Chloride [Moles/Vol] 103 mmol/L Normal 98-108 [facility] Comment on above: Performed By: #### L 100.0100, L500.4050 #### [facility] [address] [place], [address] CO2 [Moles/Vol] 22.6 mmol/L Normal 21.0-32.0 [facility] Comment on above: Performed By: #### L 100.0100, L500.4050 #### [facility] [address] [place], [address] Creatinine [Mass/Vol] 0.86 mg/dL Normal 0.70-1.20 [facility] Comment on above: Performed By: #### L 100.0100, L500.4050 #### [facility] [address] [place], [address] GAP 13 Normal 5-15 [facility] Comment on above: Performed By: #### L 100.0100, L500.4050 #### [facility] [address] [place], [address] GFR/1.73 sq M.predicted among non-blacks MDRD (S/P/Bld) [Vol rate/Area] 64 mL/min/{1.73_m2} Normal >60 [facility] Comment on above: Result Comment: mL/m in/1.73m2 CKD-EPI Creatinine Equation (2020) Performed By: #### L 100.0100, L500.4050 #### [facility] [address] [place], [address] Globulin (S) [Mass/Vol] 2.1 g/dL Low 2.2-4.2 [facility] Comment on above: Performed By: #### L 100.0100, L500.4050 #### [facility] [address] [place], [address] Glucose [Mass/Vol] 93 mg/dL Normal 70-99 [facility] Comment on above: Performed By: #### L 100.0100, L500.4050 #### [facility] [address] [place], [address] Potassium [Moles/Vol] 4.1 mmol/L Normal 3.3-5.1 [facility] Comment on above: Performed By: #### L 100.0100, L500.4050 #### [facility] [address] [place], [address] Sodium [Moles/Vol] 138 mmol/L Normal 133-145 [facility] Comment on above: Performed By: #### L 100.0100, L500.4050 #### [facility] [address] [place], [address] T PROT 6.3 g/dL Normal 5.9-8.4 [facility] Comment on above: Performed By: #### L 100.0100, L500.4050 #### [facility] [address] [place], [address] Urea nitrogen [Mass/Vol] 13 mg/dL Normal 4-19 [facility] Comment on above: Performed By: #### L 100.0100, L500.4050 #### [facility] [address] [place], [address] Eosinophil percentageOrdered By: Adele Rockwell on 01-13-2025 Eosinophils/100 WBC (Bld) 3.3 % 0-5 [facility] Erythrocyte distribution wid th (RBC) [Ratio]Ordered By: Adele Rockwell on 01-13-2025 Erythrocyte distribution width (RBC) [Entitic vol] 49.2 fL High 35.1-43.9 [facility] Erythrocyte distribution wid th ratioOrdered By: Adele Rockwell on 01-13-2025 Erythrocyte distribution width (RBC) [Ratio] 14.4 % 11.6-14.6 [facility] Erythrocyte distribution wid th standard deviationOrdered By: Adele Rockwell on 01-13-2025 Erythrocyte distribution width (RBC) [Ratio] 49.2 fl High 35.1-43.9 [facility] GFR/1.73 sq M.predicted irene g non-blacks MDRD (S/P/Bld) [Vol rate/Area]Ordered By: Adele Rockwell on 01-13-2025 Estimated GFR (MDRD) Non-Af Amer 64 >60 [facility] Comment on above: mL/min/1.73m2 CKD-EP I Creatinine Equation (2020) Glomerular filtration rate ( GFR) estimation/1.73 sq m using serum, plasma, or whole bOrdered By: Adele Rockwell on 01-13-2025 GFR/1.73 sq M.predicted among non-blacks MDRD (S/P/Bld) [Vol rate/Area] 64 mL/min/{1.73_m2} >60 [facility] Comment on above: mL/min/1.73m2 CKD-EP I Creatinine Equation (2020) Hematocrit Auto (Bld) [Volum e fraction]Ordered By: Adele Rockwell on 01-13-2025 Hematocrit (Bld) [Volume fraction] 39.6 % 37-47 [facility] Hemoglobin measurementOrdere d By: Adele Rockwell on 01-13-2025 Hemoglobin (Bld) [Mass/Vol] 13.1 g/dL 12.0-15.0 [facility] Immature granulocytes/100 WB C Auto (Bld)Ordered By: Adele Rockwell on 01-13-2025 Immature granulocytes/100 WBC (Bld) 0.300 % 0.0-0.9 [facility] Comment on above: IG% - Immature Granu locytes (promyelocytes, myelocytes and metamyelocytes) > 1% indicates that a LEFT SHIFT is Present. Laboratory - Chemistry and C hemistry - challengeOrdered By: Adele Rockwell on 01-13-2025 AST [Catalytic activity/Vol] 21 U/L <32 [facility] Lymphocytes Auto (Unsp spec) [#/Vol]Ordered By: Adele Rockwell on 01-13-2025 Lymphocytes (Bld) [#/Vol] 2.37 10*3/uL 0.83-4.51 [facility] Lymphocytes/100 WBC Auto (Un sp spec)Ordered By: Adele Rockwell on 01-13-2025 Lymphocytes/100 WBC (Bld) 32.9 % 19-41 [facility] MCV (mean corpuscular volume ) determinationOrdered By: Adele Rockwell on 01-13-2025 MCV (RBC) [Entitic vol] 93.0 fL 81-99 [facility] Mean corpuscular hemoglobin (MCH) determinationOrdered By: Adele Rockwell on 01-13-2025 MCH (RBC) [Entitic mass] 30.8 pg 27.0-32.0 [facility] Mean corpuscular hemoglobin concentration (MCHC) determinationOrdered By: Adele Rockwell on 01-13-2025 MCHC (RBC) [Mass/Vol] 33.1 g/dL 32-36 [facility] Mean platelet volume determi nationOrdered By: Adele Rockwell on 01-13-2025 Platelet mean volume (Bld) [Entitic vol] 12.1 fL High 6.2-12.0 [facility] Monocyte percentageOrdered B y: Adele Rockwell on 01-13-2025 Monocytes/100 WBC (Bld) 9.3 % 0-10 [facility] Neutrophil percentageOrdered By: Adele Rockwell on 01-13-2025 Neutrophils/100 WBC (Bld) 53.4 % 47-70 [facility] Nucleated red blood cell per centageOrdered By: Adele Rockwell on 01-13-2025 Nucleated RBC/100 WBC (Bld) [Ratio] 0 % 0-5 [facility] Platelet countOrdered By: Kelsy Rockwell on 01-13-2025 Platelets (Bld) [#/Vol] 224 10*3/uL 150-450 [facility] Potassium (Unsp spec) [Mass/ Vol]Ordered By: Adele Rockwell on 01-13-2025 Potassium [Moles/Vol] 4.1 mmol/L 3.3-5.1 [facility] Potassium measurement (mass/ volume)Ordered By: Adele Rockwell on 01-13-2025 Potassium (Unsp spec) [Mass/Vol] 4.1 mmol/L 3.3-5.1 [facility] RBC Auto (Bld) [#/Vol]Ordere d By: Adele Rockwell on 01-13-2025 RBC (Bld) [#/Vol] 4.26 10*6/uL 4.2-5.4 [facility] Serum creatinine measurement (mass/volume)Ordered By: Adele Rockwell on 01-13-2025 Creatinine [Mass/Vol] 0.86 mg/dL 0.70-1.20 [facility] Serum globulin measurementOr dered By: Adele Rockwell on 01-13-2025 Globulin (S) [Mass/Vol] 2.1 g/dL Low 2.2-4.2 [facility] Serum glucose measurement (m ass/volume)Ordered By: Adele Rockwell on 01-13-2025 Glucose [Mass/Vol] 93 mg/dL 70-99 [facility] Serum or plasma alanine springer otransferase (ALT) measurementOrdered By: Adele Rockwell on 01-13-2025 ALT [Catalytic activity/Vol] 18 U/L <35 [facility] Serum or plasma albumin amalia urement (mass/volume)Ordered By: Adele Rockwell on 01-13-2025 Albumin [Mass/Vol] 4.1 g/dL 3.4-4.8 [facility] Serum or plasma albumin/glob ulin mass ratioOrdered By: Adele Rockwell 01-13-2025 Albumin/Globulin [Mass ratio] 1.9 {ratio} 0.9-2.4 [facility] Serum or plasma alkaline elliott sphatase measurementOrdered By: Adele Rockwell on 01-13-2025 ALP [Catalytic activity/Vol] 70 U/L 35-104 [facility] Serum or plasma calcium amalia urement (mass/volume)Ordered By: Adele Rockwell on 01-13-2025 Calcium [Mass/Vol] 9.3 mg/dL 7.6-11.0 [facility] Serum or plasma urea nitroge n measurement (mass/volume)Ordered By: Adele Rockwell on 01-13-2025 Urea nitrogen [Mass/Vol] 13 mg/dL 4-19 [facility] Sodium levelOrdered By: Michel Rockwell on 01-13-2025 Sodium [Moles/Vol] 138 mmol/L 133-145 [facility] Total proteinOrdered By: Hardeep Rockwell on 01-13-2025 Protein [Mass/Vol] 6.3 g/dL 5.9-8.4 [facility] White blood cell (WBC) count Ordered By: Adele Rockwell on 01-13-2025 WBC (Bld) [#/Vol] 7.2 10*3/uL 4.4-11.0 [facility] Absolute lymphocyte countOrd ered By: Adele Rockwell on 12-15-2024 Lymphocytes Auto (Unsp spec) [#/Vol] 1.99 10*3/uL 0.83-4.51 [facility] Absolute neutrophil countOrd ered By: Adele Rockwell on 12-15-2024 Neutrophils (Bld) [#/Vol] 3.3 10*3/uL 2.0-7.7 [facility] Anion gap in Serum or Plasma Ordered By: Adele Rockwell on 12-15-2024 Anion gap [Moles/Vol] 14 mmol/L 5-15 [facility] Automated lymphocyte count a s percentage of total leukocytesOrdered By: Adele Rockwell on 12-15-2024 Lymphocytes/100 WBC Auto (Unsp spec) 31.2 % 19-41 [facility] BUN/creatinine ratioOrdered By: Adele Rockwell on 12-15-2024 Urea nitrogen/Creatinine [Mass ratio] 19.0 mg/mg 10-20 [facility] Basophil percentageOrdered B y: Adele Rockwell on 12-15-2024 Basophils/100 WBC (Bld) 0.9 % 0-1 [facility] Bilirubin, totalOrdered By: dAele Rockwell on 12-15-2024 Bilirubin [Mass/Vol] 0.27 mg/dL 0.00-1.30 [facility] CBC W/Diff, Automatedon 12-04 Absolute Lymph 1.99 X10 3/uL Normal 0.83-4.51 [facility] Comment on above: Performed By: #### L 500.4050, L100.0100 ####[facility] [address] [place], [address] Absolute Neut 3.3 X10 3/uL Normal 2.0-7.7 [facility] Comment on above: Performed By: #### L 500.4050, L100.0100 ####[facility] [address] [place], [address] Basophils/100 WBC (Bld) 0.9 % Normal 0-1 [facility] Comment on above: Performed By: #### L 500.4050, L100.0100 ####[facility] [address] [place], [address] Eosinophils/100 WBC (Bld) 4.2 % Normal 0-5 [facility] Comment on above: Performed By: #### L 500.4050, L100.0100 ####[facility] [address] [place], [address] Erythrocyte distribution width (RBC) [Ratio] 14.2 % Normal 11.6-14.6 [facility] Comment on above: Performed By: #### L 500.4050, L100.0100 ####[facility] [address] [place], [address] Hematocrit (Bld) [Volume fraction] 39.5 % Normal 37-47 [facility] Comment on above: Performed By: #### L 500.4050, L100.0100 ####[facility] [address] [place], [address] Hemoglobin (Bld) [Mass/Vol] 12.8 g/dL Normal 12.0-15.0 [facility] Comment on above: Performed By: #### L 500.4050, L100.0100 ####[facility] [address] [place], [address] IG% 0.200 Normal 0.0-0.9 [facility] Comment on above: Result Comment: IG% - Immature Granulocytes (promyelocytes, myelocytes and metamyelocytes) > 1% indicates that a LEFT SHIFT is Present. Performed By: #### L 500.4050, L100.0100 ####[facility] [address] [place], [address] Lymphocytes/100 WBC (Bld) 31.2 % Normal 19-41 [facility] Comment on above: Performed By: #### L 500.4050, L100.0100 ####[facility] [address] [place], [address] MCH (RBC) [Entitic mass] 30.5 pg Normal 27.0-32.0 [facility] Comment on above: Performed By: #### L 500.4050, L100.0100 ####[facility] [address] [place], [address] MCHC (RBC) [Mass/Vol] 32.4 g/dL Normal 32-36 [facility] Comment on above: Performed By: #### L 500.4050, L100.0100 ####[facility] [address] [place], [address] MCV (RBC) [Entitic vol] 94.3 fL Normal 81-99 [facility] Comment on above: Performed By: #### L 500.4050, L100.0100 ####[facility] [address] [place], [address] Monocytes/100 WBC (Bld) 11.4 % High 0-10 [facility] Comment on above: Performed By: #### L 500.4050, L100.0100 ####[facility] [address] [place], [address] Neutrophils/100 WBC (Bld) 52.1 % Normal 47-70 [facility] Comment on above: Performed By: #### L 500.4050, L100.0100 ####[facility] [address] [place], [address] Nucleated RBC (Bld) [#/Vol] 0 10*3/uL Normal 0-5 [facility] Comment on above: Performed By: #### L 500.4050, L100.0100 ####[facility] [address] [place], [address] Platelet mean volume (Bld) [Entitic vol] 12.1 fL High 6.2-12.0 [facility] Comment on above: Performed By: #### L 500.4050, L100.0100 ####[facility] [address] [place], [address] Platelets (Bld) [#/Vol] 210 10*3/uL Normal 150-450 [facility] Comment on above: Performed By: #### L 500.4050, L100.0100 ####[facility] [address] [place], [address] RBC (Bld) [#/Vol] 4.19 10*6/uL Low 4.2-5.4 [facility] Comment on above: Performed By: #### L 500.4050, L100.0100 ####[facility] [address] [place], [address] RDW SD 48.6 fl High 35.1-43.9 [facility] Comment on above: Performed By: #### L 500.4050, L100.0100 ####[facility] [address] [place], [address] WBC (Bld) [#/Vol] 6.4 10*3/uL Normal 4.4-11.0 [facility] Comment on above: Performed By: #### L 500.4050, L100.0100 ####[facility] [address] [place], [address] Carbon dioxide, total [Moles /volume] in Central venous bloodOrdered By: Adele Rockwell on 12-15-2024 CO2 [Moles/Vol] 23.7 mmol/L 21.0-32.0 [facility] Chloride assayOrdered By: Kelsy Rockwell on 12-15-2024 Chloride [Moles/Vol] 105 mmol/L 98-108 [facility] Comprehensive Metabolic Prof ilon 12-15-2024 Albumin [Mass/Vol] 4.1 g/dL Normal 3.4-4.8 [facility] Comment on above: Performed By: #### L 500.4050, L100.0100 ####[facility] [address] [place], [address] Albumin/Globulin [Mass ratio] 1.8 {ratio} Normal 0.9-2.4 [facility] Comment on above: Performed By: #### L 500.4050, L100.0100 ####[facility] [address] [place], [address] ALK PHOS 77 U/L Normal 35-104 [facility] Comment on above: Performed By: #### L 500.4050, L100.0100 ####[facility] [address] [place], [address] ALT [Catalytic activity/Vol] 14 U/L Normal <=34 [facility] Comment on above: Performed By: #### L 500.4050, L100.0100 ####[facility] [address] [place], [address] AST [Catalytic activity/Vol] 21 U/L Normal <=31 [facility] Comment on above: Performed By: #### L 500.4050, L100.0100 ####[facility] [address] [place], [address] Bilirubin [Mass/Vol] 0.27 mg/dL Normal 0.00-1.30 [facility] Comment on above: Performed By: #### L 500.4050, L100.0100 ####[facility] [address] [place], [address] BUN/CRE 19.0 RATIO Normal 10-20 [facility] Comment on above: Performed By: #### L 500.4050, L100.0100 ####[facility] [address] [place], [address] Calcium [Mass/Vol] 9.2 mg/dL Normal 7.6-11.0 [facility] Comment on above: Performed By: #### L 500.4050, L100.0100 ####[facility] [address] [place], [address] Chloride [Moles/Vol] 105 mmol/L Normal 98-108 [facility] Comment on above: Performed By: #### L 500.4050, L100.0100 ####[facility] [address] [place], [address] CO2 [Moles/Vol] 23.7 mmol/L Normal 21.0-32.0 [facility] Comment on above: Performed By: #### L 500.4050, L100.0100 ####[facility] [address] [place], [address] Creatinine [Mass/Vol] 0.90 mg/dL Normal 0.70-1.20 [facility] Comment on above: Performed By: #### L 500.4050, L100.0100 ####[facility] [address] [place], [address] GAP 14 Normal 5-15 [facility] Comment on above: Performed By: #### L 500.4050, L100.0100 ####[facility] [address] [place], [address] GFR/1.73 sq M.predicted among non-blacks MDRD (S/P/Bld) [Vol rate/Area] 61 mL/min/{1.73_m2} Normal >60 [facility] Comment on above: Result Comment: mL/m in/1.73m2 CKD-EPI Creatinine Equation (2020) Performed By: #### L 500.4050, L100.0100 ####[facility] [address] [place], [address] Globulin (S) [Mass/Vol] 2.3 g/dL Normal 2.2-4.2 [facility] Comment on above: Performed By: #### L 500.4050, L100.0100 ####[facility] [address] [place], [address] Glucose [Mass/Vol] 98 mg/dL Normal 70-99 [facility] Comment on above: Performed By: #### L 500.4050, L100.0100 ####[facility] [address] [place], [address] Potassium [Moles/Vol] 4.1 mmol/L Normal 3.3-5.1 [facility] Comment on above: Performed By: #### L 500.4050, L100.0100 ####[facility] [address] [place], [address] Sodium [Moles/Vol] 143 mmol/L Normal 133-145 [facility] Comment on above: Performed By: #### L 500.4050, L100.0100 ####[facility] [address] [place], [address] T PROT 6.3 g/dL Normal 5.9-8.4 [facility] Comment on above: Performed By: #### L 500.4050, L100.0100 ####[facility] [address] [place], [address] Urea nitrogen [Mass/Vol] 17 mg/dL Normal 4-19 [facility] Comment on above: Performed By: #### L 500.4050, L100.0100 ####[facility] [address] [place], [address] Eosinophil percentageOrdered By: Adele Rockwell on 12-15-2024 Eosinophils/100 WBC (Bld) 4.2 % 0-5 [facility] Erythrocyte distribution wid th ratioOrdered By: Adele Rockwell on 12-15-2024 Erythrocyte distribution width (RBC) [Ratio] 14.2 % 11.6-14.6 [facility] Erythrocyte distribution wid th standard deviationOrdered By: Aedle Rockwell on 12-15-2024 Erythrocyte distribution width (RBC) [Entitic vol] 48.6 fL High 35.1-43.9 [facility] Erythrocyte distribution width (RBC) [Ratio] 48.6 fl High 35.1-43.9 [facility] GFR/1.73 sq M.predicted irene g non-blacks MDRD (S/P/Bld) [Vol rate/Area]Ordered By: Adele Rockwell on 12-15-2024 Estimated GFR (MDRD) Non-Af Amer 61 >60 [facility] Comment on above: mL/min/1.73m2 CKD-EP I Creatinine Equation (2020) Glomerular filtration rate ( GFR) estimation/1.73 sq m using serum, plasma, or whole bOrdered By: Adele Rockwell on 12-15-2024 GFR/1.73 sq M.predicted among non-blacks MDRD (S/P/Bld) [Vol rate/Area] 61 mL/min/{1.73_m2} >60 [facility] Comment on above: mL/min/1.73m2 CKD-EP I Creatinine Equation (2020) Hematocrit Auto (Bld) [Volum e fraction]Ordered By: Adele Rockwell on 12-15-2024 Hematocrit (Bld) [Volume fraction] 39.5 % 37-47 [facility] Hemoglobin measurementOrdere d By: Adele Rockwell on 12-15-2024 Hemoglobin (Bld) [Mass/Vol] 12.8 g/dL 12.0-15.0 [facility] Immature granulocytes/100 WB C Auto (Bld)Ordered By: Adele Rockwell on 12-15-2024 Immature granulocytes/100 WBC (Bld) 0.200 % 0.0-0.9 [facility] Comment on above: IG% - Immature Granu locytes (promyelocytes, myelocytes and metamyelocytes) > 1% indicates that a LEFT SHIFT is Present. Laboratory - Chemistry and C hemistry - challengeOrdered By: Adele Rockwell on 12-15-2024 AST [Catalytic activity/Vol] 21 U/L <32 [facility] Lymphocytes Auto (Unsp spec) [#/Vol]Ordered By: Adele Rockwell on 12-15-2024 Lymphocytes (Bld) [#/Vol] 1.99 10*3/uL 0.83-4.51 [facility] Lymphocytes/100 WBC Auto (Un sp spec)Ordered By: Adele Rockwell on 12-15-2024 Lymphocytes/100 WBC (Bld) 31.2 % 19-41 [facility] MCV (mean corpuscular volume ) determinationOrdered By: Adele Rockwell on 12-15-2024 MCV (RBC) [Entitic vol] 94.3 fL 81-99 [facility] Mean corpuscular hemoglobin (MCH) determinationOrdered By: Adele Rockwell on 12-15-2024 MCH (RBC) [Entitic mass] 30.5 pg 27.0-32.0 [facility] Mean corpuscular hemoglobin concentration (MCHC) determinationOrdered By: Adele Rockwell on 12-15-2024 MCHC (RBC) [Mass/Vol] 32.4 g/dL 32-36 [facility] Mean platelet volume determi nationOrdered By: Adele Rockwell on 12-15-2024 Platelet mean volume (Bld) [Entitic vol] 12.1 fL High 6.2-12.0 [facility] Monocyte percentageOrdered B y: Adele Rockwell on 12-15-2024 Monocytes/100 WBC (Bld) 11.4 % High 0-10 [facility] Neutrophil percentageOrdered By: Adele Rockwell on 12-15-2024 Neutrophils/100 WBC (Bld) 52.1 % 47-70 [facility] Nucleated red blood cell per centageOrdered By: Adele Rockwell on 12-15-2024 Nucleated RBC/100 WBC (Bld) [Ratio] 0 % 0-5 [facility] Platelet countOrdered By: Kelsy Rockwell on 12-15-2024 Platelets (Bld) [#/Vol] 210 10*3/uL 150-450 [facility] Potassium (Unsp spec) [Mass/ Vol]Ordered By: Adele Rockwell on 12-15-2024 Potassium [Moles/Vol] 4.1 mmol/L 3.3-5.1 [facility] Potassium measurement (mass/ volume)Ordered By: Adele Rockwell on 12-15-2024 Potassium (Unsp spec) [Mass/Vol] 4.1 mmol/L 3.3-5.1 [facility] RBC Auto (Bld) [#/Vol]Ordere d By: Adele Rockwell on 12-15-2024 RBC (Bld) [#/Vol] 4.19 10*6/uL Low 4.2-5.4 [facility] Serum creatinine measurement (mass/volume)Ordered By: Adele Rockwell on 12-15-2024 Creatinine [Mass/Vol] 0.90 mg/dL 0.70-1.20 [facility] Serum globulin measurementOr dered By: Adele Rockwell on 12-15-2024 Globulin (S) [Mass/Vol] 2.3 g/dL 2.2-4.2 [facility] Serum glucose measurement (m ass/volume)Ordered By: Adele Rockwell on 12-15-2024 Glucose [Mass/Vol] 98 mg/dL 70-99 [facility] Serum or plasma alanine springer otransferase (ALT) measurementOrdered By: Adele Rockwell on 12-15-2024 ALT [Catalytic activity/Vol] 14 U/L <35 [facility] Serum or plasma albumin amalia urement (mass/volume)Ordered By: Adele Rockwell on 12-15-2024 Albumin [Mass/Vol] 4.1 g/dL 3.4-4.8 [facility] Serum or plasma albumin/glob ulin mass ratioOrdered By: Adele Rockwell on 12-15-2024 Albumin/Globulin [Mass ratio] 1.8 {ratio} 0.9-2.4 [facility] Serum or plasma alkaline elliott sphatase measurementOrdered By: Adele Rockwell on 12-15-2024 ALP [Catalytic activity/Vol] 77 U/L 35-104 [facility] Serum or plasma calcium amalia urement (mass/volume)Ordered By: Adeel Rockwell on 12-15-2024 Calcium [Mass/Vol] 9.2 mg/dL 7.6-11.0 [facility] Serum or plasma urea nitroge n measurement (mass/volume)Ordered By: Adele Rockwell on 12-15-2024 Urea nitrogen [Mass/Vol] 17 mg/dL 4-19 [facility] Sodium levelOrdered By: Michel Rockwell on 12-15-2024 Sodium [Moles/Vol] 143 mmol/L 133-145 [facility] Total proteinOrdered By: Hardeep Rockwell on 12-15-2024 Protein [Mass/Vol] 6.3 g/dL 5.9-8.4 [facility] White blood cell (WBC) count Ordered By: Adele Rockwell on 12-15-2024 WBC (Bld) [#/Vol] 6.4 10*3/uL 4.4-11.0 [facility] CBC W/Diff, Automatedon 11-0 Absolute Lymph 1.99 X10 3/uL Normal 0.83-4.51 [facility] Comment on above: Performed By: #### L 500.4100, L500.4050, L506.1000, L501.9520, L100.0100 ####[facility] [address] [place], [address] Absolute Neut 3.5 X10 3/uL Normal 2.0-7.7 [facility] Comment on above: Performed By: #### L 500.4100, L500.4050, L506.1000, L501.9520, L100.0100 ####[facility] [address] [place], [address] Basophils/100 WBC (Bld) 0.9 % Normal 0-1 [facility] Comment on above: Performed By: #### L 500.4100, L500.4050, L506.1000, L501.9520, L100.0100 ####[facility] [address] [place], [address] Eosinophils/100 WBC (Bld) 4.0 % Normal 0-5 [facility] Comment on above: Performed By: #### L 500.4100, L500.4050, L506.1000, L501.9520, L100.0100 ####[facility] [address] [place], [address] Erythrocyte distribution width (RBC) [Ratio] 13.8 % Normal 11.6-14.6 [facility] Comment on above: Performed By: #### L 500.4100, L500.4050, L506.1000, L501.9520, L100.0100 ####[facility] [address] [place], [address] Hematocrit (Bld) [Volume fraction] 37.5 % Normal 37-47 [facility] Comment on above: Performed By: #### L 500.4100, L500.4050, L506.1000, L501.9520, L100.0100 ####[facility] [address] [place], [address] Hemoglobin (Bld) [Mass/Vol] 12.3 g/dL Normal 12.0-15.0 [facility] Comment on above: Performed By: #### L 500.4100, L500.4050, L506.1000, L501.9520, L100.0100 ####[facility] [address] [place], [address] IG% 0.300 Normal 0.0-0.9 [facility] Comment on above: Result Comment: IG% - Immature Granulocytes (promyelocytes, myelocytes and metamyelocytes) > 1% indicates that a LEFT SHIFT is Present. Performed By: #### L 500.4100, L500.4050, L506.1000, L501.9520, L100.0100 ####[facility] [address] [place], [address] Lymphocytes/100 WBC (Bld) 30.6 % Normal 19-41 [facility] Comment on above: Performed By: #### L 500.4100, L500.4050, L506.1000, L501.9520, L100.0100 ####[facility] [address] [place], [address] MCH (RBC) [Entitic mass] 31.5 pg Normal 27.0-32.0 [facility] Comment on above: Performed By: #### L 500.4100, L500.4050, L506.1000, L501.9520, L100.0100 ####[facility] [address] [place], [address] MCHC (RBC) [Mass/Vol] 32.8 g/dL Normal 32-36 [facility] Comment on above: Performed By: #### L 500.4100, L500.4050, L506.1000, L501.9520, L100.0100 ####[facility] [address] [place], [address] MCV (RBC) [Entitic vol] 96.2 fL Normal 81-99 [facility] Comment on above: Performed By: #### L 500.4100, L500.4050, L506.1000, L501.9520, L100.0100 ####[facility] [address] [place], [address] Monocytes/100 WBC (Bld) 10.3 % High 0-10 [facility] Comment on above: Performed By: #### L 500.4100, L500.4050, L506.1000, L501.9520, L100.0100 ####[facility] [address] [place], [address] Neutrophils/100 WBC (Bld) 53.9 % Normal 47-70 [facility] Comment on above: Performed By: #### L 500.4100, L500.4050, L506.1000, L501.9520, L100.0100 ####[facility] [address] [place], [address] Nucleated RBC (Bld) [#/Vol] 0 10*3/uL Normal 0-5 [facility] Comment on above: Performed By: #### L 500.4100, L500.4050, L506.1000, L501.9520, L100.0100 ####[facility] [address] [place], [address] Platelet mean volume (Bld) [Entitic vol] 11.2 fL Normal 6.2-12.0 [facility] Comment on above: Performed By: #### L 500.4100, L500.4050, L506.1000, L501.9520, L100.0100 ####[facility] [address] [place], [address] Platelets (Bld) [#/Vol] 198 10*3/uL Normal 150-450 [facility] Comment on above: Performed By: #### L 500.4100, L500.4050, L506.1000, L501.9520, L100.0100 ####[facility] [address] [place], [address] RBC (Bld) [#/Vol] 3.90 10*6/uL Low 4.2-5.4 [facility] Comment on above: Performed By: #### L 500.4100, L500.4050, L506.1000, L501.9520, L100.0100 ####[facility] [address] [place], [address] RDW SD 48.8 fl High 35.1-43.9 [facility] Comment on above: Performed By: #### L 500.4100, L500.4050, L506.1000, L501.9520, L100.0100 ####[facility] [address] [place], [address] WBC (Bld) [#/Vol] 6.5 10*3/uL Normal 4.4-11.0 [facility] Comment on above: Performed By: #### L 500.4100, L500.4050, L506.1000, L501.9520, L100.0100 ####[facility] [address] [place], [address] Comprehensive Metabolic Prof [facility] 08-12-2024 Albumin [Mass/Vol] 3.6 g/dL Normal 3.2-5.0 [facility] Comment on above: Performed By: #### L 500.4100, L500.4050, L506.1000, L501.9520, L100.0100 ####[facility] [address] [place], [address] Albumin/Globulin [Mass ratio] 1.3 {ratio} Normal 0.9-2.4 [facility] Comment on above: Performed By: #### L 500.4100, L500.4050, L506.1000, L501.9520, L100.0100 ####[facility] [address] [place], [address] ALK P 72 U/L Normal 45-117 [facility] Comment on above: Performed By: #### L 500.4100, L500.4050, L506.1000, L501.9520, L100.0100 ####[facility] [address] [place], [address] ALT [Catalytic activity/Vol] 18 U/L Normal 13-56 [facility] Comment on above: Performed By: #### L 500.4100, L500.4050, L506.1000, L501.9520, L100.0100 ####[facility] [address] [place], [address] AST [Catalytic activity/Vol] 22 U/L Normal 15-37 [facility] Comment on above: Performed By: #### L 500.4100, L500.4050, L506.1000, L501.9520, L100.0100 ####[facility] [address] [place], [address] Bilirubin [Mass/Vol] 0.40 mg/dL Normal 0.20-1.00 [facility] Comment on above: Result Comment: For patients on eltrombopag therapy, use of Dimension Gary TBIL is not recommended. Performed By: #### L 500.4100, L500.4050, L506.1000, L501.9520, L100.0100 ####[facility] [address] [place], [address] BUN/CRE 17.3 RATIO Normal 10-20 [facility] Comment on above: Performed By: #### L 500.4100, L500.4050, L506.1000, L501.9520, L100.0100 ####[facility] [address] [place], [address] CA,Total 8.9 mg/dL Normal 8.5-10.1 [facility] Comment on above: Performed By: #### L 500.4100, L500.4050, L506.1000, L501.9520, L100.0100 ####[facility] [address] [place], [address] Chloride [Moles/Vol] 107 mmol/L Normal 98-107 [facility] Comment on above: Performed By: #### L 500.4100, L500.4050, L506.1000, L501.9520, L100.0100 ####[facility] [address] [place], [address] CO2 [Moles/Vol] 26.0 mmol/L Normal 21.0-32.0 [facility] Comment on above: Performed By: #### L 500.4100, L500.4050, L506.1000, L501.9520, L100.0100 ####[facility] [address] [place], [address] Creatinine [Mass/Vol] 0.75 mg/dL Normal 0.55-1.02 [facility] Comment on above: Result Comment: The validity of the calculated GFR GFRAA in patients over 70 years has not been determined. Clinical correlation is essential. Performed By: #### L 500.4100, L500.4050, L506.1000, L501.9520, L100.0100 ####[facility] [address] [place], [address] EST GFR - AA 93 mL/min Normal >60 [facility] Comment on above: Result Comment: Afri can [place]ian GFR Calc Performed By: #### L 500.4100, L500.4050, L506.1000, L501.9520, L100.0100 ####[facility] [address] [place], [address] GAP 5 Normal 5-15 [facility] Comment on above: Performed By: #### L 500.4100, L500.4050, L506.1000, L501.9520, L100.0100 ####[facility] [address] [place], [address] GFR/1.73 sq M.predicted among non-blacks MDRD (S/P/Bld) [Vol rate/Area] 77 mL/min/{1.73_m2} Normal >60 [facility] Comment on above: Result Comment: Non- GFR Calc Performed By: #### L 500.4100, L500.4050, L506.1000, L501.9520, L100.0100 ####[facility] [address] [place], [address] Globulin (S) [Mass/Vol] 2.7 g/dL Normal 2.2-4.2 [facility] Comment on above: Performed By: #### L 500.4100, L500.4050, L506.1000, L501.9520, L100.0100 ####[facility] [address] [place], [address] Glucose [Mass/Vol] 100 mg/dL Normal 74-106 [facility] Comment on above: Result Comment: Fast ing Glucose result from 100 to 125 mg/dL suggests IMPAIRED HOMEOSTASIS per A.D.A. criteria. Performed By: #### L 500.4100, L500.4050, L506.1000, L501.9520, L100.0100 ####[facility] [address] [place], [address] Potassium [Moles/Vol] 4.3 mmol/L Normal 3.5-5.1 [facility] Comment on above: Performed By: #### L 500.4100, L500.4050, L506.1000, L501.9520, L100.0100 ####[facility] [address] [place], [address] Sodium [Moles/Vol] 139 mmol/L Normal 136-145 [facility] Comment on above: Performed By: #### L 500.4100, L500.4050, L506.1000, L501.9520, L100.0100 ####[facility] [address] [place], [address] T PROT 6.3 g/dL Low 6.4-8.2 [facility] Comment on above: Performed By: #### L 500.4100, L500.4050, L506.1000, L501.9520, L100.0100 ####[facility] [address] [place], [address] Urea nitrogen [Mass/Vol] 13 mg/dL Normal 7-18 [facility] Comment on above: Performed By: #### L 500.4100, L500.4050, L506.1000, L501.9520, L100.0100 ####[facility] [address] [place], [address] Lipid Profileon 08-12-2024 Cholesterol [Mass/Vol] 177 mg/dL Normal 200 [facility] Comment on above: Result Comment: <200 mg/dL Desirable 200-240 mg/dL Borderline >240 mg/dL High Risk Performed By: #### L 500.4100, L500.4050, L506.1000, L501.9520, L100.0100 ####[facility] [address] [place], [address] Cholesterol in HDL [Mass/Vol] 84 mg/dL Normal [facility] Comment on above: Result Comment: The drugs N-Acetylcysteine and Metamizole may falsely depress this assay. Reference Range HDL <40 mg/dL Low HDL Cholesterol HDL >or= 60 mg/dL High HDL Cholesterol Performed By: #### L 500.4100, L500.4050, L506.1000, L501.9520, L100.0100 ####[facility] [address] [place], [address] Cholesterol in LDL [Mass/Vol] 72 mg/dL Normal 0-130 [facility] Comment on above: Performed By: #### L 500.4100, L500.4050, L506.1000, L501.9520, L100.0100 ####[facility] [address] [place], [address] Cholesterol in VLDL [Mass/Vol] 21 mg/dL Normal 5-40 [facility] Comment on above: Performed By: #### L 500.4100, L500.4050, L506.1000, L501.9520, L100.0100 ####[facility] [address] [place], [address] Triglyceride [Mass/Vol] 103 mg/dL Normal [facility] Comment on above: Result Comment: The drugs N-Acetylcysteine and Metamizole may falsely depress this assay. Serum Triglycerides Reference Interval Normal <150 mg/dL Borderline high 150 - 199 mg/dL High 200 - 499 mg/dL Very High > or = 500 mg/dL Performed By: #### L 500.4100, L500.4050, L506.1000, L501.9520, L100.0100 ####[facility] [address] [place], [address] Thyroid Stim Hormone (TSH)on 08-12-2024 TSH 1.940 uIU/mL Normal 0.358-3.740 [facility] Comment on above: Performed By: #### L 500.4100, L500.4050, L506.1000, L501.9520, L100.0100 ####[facility] [address] [place], [address] Vitamin D,25 Hydroxyon 08-12 Vitamin D 25-OH 29.0 ng/mL Normal [facility] Comment on above: Result Comment: Melani min D 25(OH) Status Range Deficiency <20 ng/mL (50nmol/L) Insufficiency 20 - 30 ng/mL (50 - 75 nmol/L) Sufficiency 30 - 100 ng/mL (75 - 250 nmol/L) Toxicity >100 ng/mL (>250 nmol/L) Performed By: #### L 500.4100, L500.4050, L506.1000, L501.9520, L100.0100 ####[facility] [address] [place], [address] M8200.1075on 08-08-2024 M8200.1075 Not performed Normal [facility] Comment on above: Performed By: #### M 100.3000, M100.4001, M8200.1075, M100.2000 ####[facility] [address] [place], [address] Knee 3 Viewson 07-28-2024 Knee 3 Views [facility] Imaging Services [address] [place] [address] Knee 3 Views MR#: [id number] Acct: [id number] Name: BASHIR SYKES Rep #: [id number] : 1935 F 88 From: Raphael Bowden MD PCP: Dr. Sagar Horton MD Status: REG CLI Study: Knee 3 Views Date of Exam: 07/28/24 Exam# [id number] Ordering Dr: SHRUTHI SANDRA [id number] STUDY: X-RAY - LEFT KNEE REASON FOR EXAM: Female, 88 years old. PAIN / INFECTION TECHNIQUE: 3 views of the left knee. COMPARISON: Left knee radiographs dated 07/19/2024. FINDINGS: There is significant interval improvement of the previously seen prepatellar soft tissue swelling, now mild in severity. Again seen is a left total knee arthroplasty with patellar resurfacing. The orthopedic hardware components are intact. There is no periprosthetic fracture. Normal proximal tibiofibular articulation. There are atherosclerotic calcifications. RAD/Knee 3 Views IMPRESSION: Significant interval improvement of the previously seen prepatellar soft tissue swelling, now mild in severity. Left total knee arthroplasty, with no periprosthetic fracture. Electronically Signed: Raphael Bowden MD at 13:52 EDT , CC: SHRUTHI SANDRA; Dr. 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 FALL SCREENING: Has the patient had 2 falls in the last year or 1 fall with injury or currently using an Ambulatory Assistive Device (Walker, Cane, Wheelchair, Crutches, etc.)? Emergency Room Patient: Screened in ED PATIENT GENDER DATA: Female. status: : No status: NO. PATIENT RELEVANT IMPLANT DATA REVIEWED: Not Applicable PATIENT PRESENTS WITH AN IMPLANTABLE OR ATTACHED DOCUMENT CONTROL ASSOCIATE: No RADIOLOGY DEPARTMENT: MR; Exam(s) Completed: Spine: Cervical spine PERIPHERAL IV DATA: Not applicable SIGNED BY: RT Pedro(R) July 20, 2024 2:37 AM [facility] ED NOTEon 07-20-2024 ED NOTE HNO ID: [id number] Author: DANISHA GARDNER RN Service: Emergency Medicine Author Type: Registered Nurse Type: ED Notes Filed: 07/20/2024 09:31 Note Text: Pt dtr to BS, pt dressed self. Pt provided with discharge instructions and follow up information. Pt offered opportunity to answer any additional questions and/or concerns. Pt verbalizes understanding of follow-up with PCP and signs and symptoms to return to ED. Pt alert. RR even and unlabored. Pt ambulatory, steady gait noted. Pt accompanied by Daughter Normal [facility] ED NOTE HNO ID: [id number] Author: DANISHA GARDNER RN Service: Emergency Medicine Author Type: Registered Nurse Type: ED Notes Filed: 07/20/2024 09:12 Note Text: Pt ambulated to BR with stand by assist without incident Normal [facility] ED NOTE HNO ID: [id number] Author: DANISHA GARDNER, BIJAN Service: Emergency Medicine Author Type: Registered Nurse Type: ED Notes Filed: 07/20/2024 09:12 Note Text: Spoke with pts dtrDaniela, who sts that she is approx 30 minutes away with pt clothing for d/c. Pt made aware Normal [facility] ED NOTE HNO ID: [id number] Author: RODRIGO MIDDLETON RN Service: Emergency Medicine Author Type: Registered Nurse Type: ED Notes Filed: 07/20/2024 06:31 Note Text: Attempted to contact daughter Daniela X3 at this time to last picker patient, left voicemail Normal [facility] ED NOTE HNO ID: [id number] Author: RODRIGO MIDDLETON RN Service: Emergency Medicine Author Type: Registered Nurse Type: ED Notes Filed: 07/20/2024 06:07 Note Text: Attempted to contact daughter Daniela X2 at this time to last picker patient, left voicemail Normal [facility] ED NOTE HNO ID: [id number] Author: RODRIGO MIDDLETON RN Service: Emergency Medicine Author Type: Registered Nurse Type: ED Notes Filed: 07/20/2024 05:27 Note Text: Attempted to contact daughter Daniela at this time to last picker patient, left voicemail Normal [facility] ED NOTE HNO ID: [id number] Author: RODRIGO MIDDLETON RN Service: Emergency Medicine Author Type: Registered Nurse Type: ED Notes Filed: 07/20/2024 03:40 Note Text: Pt ambulated to bathroom independently at this time. Steady gait Normal [facility] ED NOTE HNO ID: [id number] Author: RODRIGO MIDDLETON RN Service: Emergency Medicine Author Type: Registered Nurse Type: ED Notes Filed: 07/20/2024 02:54 Note Text: Pt back from MRI Normal [facility] ED NOTE HNO ID: [id number] Author: RODRIGO MIDDLETON, BIJAN Service: Emergency Medicine Author Type: Registered Nurse Type: ED Notes Filed: 07/20/2024 02:15 Note Text: To MRI at this time Normal [facility] ED PROV NOTEon 07-20-2024 ED PROV NOTE HNO ID: [id number] Author: ADRIAN GARCIA MD Service: Emergency Medicine Author Type: Resident Type: ED Provider Notes Filed: 07/20/2024 23:52 Note Text: Attestation signed by Adrian Garcia MD at 07/20/2024 11:52 PM Attending Note I evaluated the patient and personally participated in the bourne components. I agree with the resident's findings and plan as documented and have discussed the case and management of the patient's care with the resident. See my note from the same visit for any corrections or additions to resident's note. Signature: Adrian Garcia MD Date: 07/20/2024 Time: 11:52 PM ED CONTINUATION OF CARE NOTE Code Status: Full Code Assumed care from: Dr. Hubbard Presentation / Findings / Interventions / Plan / Items to Follow Up: Patient was seen at outside hospital and was found to have have C1 odontoid and C2 fracture. Patient was seen by Ortho here. They recommended MRI but did not want to admit the patient. Patient was signed out to me pending MRI and discharge MRI showing chronic C1 and C2 fractures. On reevaluation, the patient was not in any pain. She was just frustrated on waiting here so long. The nurse contacted the daughter to get the patient a ride home since she lives an hour away. I advised the patient to keep the [place] collar on. She was already advised by orthopedics to call in the morning to schedule an appointment. Patient to be discharged in stable condition. ED Course as of 07/20/24104 Others' Documentation Tue Jul 20, 2024 0004 Spoke with orthopedic team who said that the patient will be managed nonoperatively [JG] ED Course User Index [JG] Brando Hubbard DO Clinical Impressions as of 07/20/24104 Closed odontoid fracture, initial encounter (HCC) Closed fracture of anterior arch of atlas, initial encounter (HCC) Abrasion of forehead, initial encounter Ecchymosis of left eye, initial encounter Medical Decision Making SIGNATURE: Artemio Gonzales DO PATIENT NAME: Bashir Sykes DATE: July 20, 2024 TIME: 1:05 AM PAGER/CONTACT #: ARTEMIO GONZALES 07/20/24 0624 ADRIAN GARCIA 07/20/24 1229 Normal [facility] MRI CERVICAL SPINE WO IVCONo n 07-20-2024 MRI CERVICAL SPINE WO IVCON * * *Final Report* * * DATE OF EXAM: Jul 20 2024 2:46AM [facility] 0297 - MRI CERVICAL SPINE WO IVCON / PROCEDURE REASON: Spine fracture, cervical, traumatic * * * * Physician Interpretation * * * * EXAMINATION: MRI CERVICAL SPINE WO IVCON CLINICAL HISTORY: Evaluate for fracture. TECHNIQUE: Routine cervical spine MR protocol without gadolinium. MQ: [id number] COMPARISON: Outside facility CT cervical spine 07/19/2024 RESULT: Counting reference: Craniocervical junction. Anatomic Variants: None. Localizer images: No additional findings. Alignment: Stable Craniocervical junction: Craniocervical junction is normal. Cord: The visualized cord is within normal limits of signal intensity and morphology. Bone marrow signal/fracture: No evidence of pathologic marrow infiltration. No evidence of an acute fracture. Chronic dens fracture unchanged in appearance from the prior CT. Also unchanged appearance of chronic anterior and posterior C1 arch fractures, better depicted on the prior CT. Cervical soft tissues: The paraspinal soft tissues are within normal limits. C2-C3: Canal and foramina are patent. C3-C4: Patent canal. Severe right foraminal narrowing. C4-C5: Patent canal. Mild bilateral foraminal narrowing. C5-C6: Mild degenerative canal stenosis without significant underlying cord compression or abnormal signal. Severe left foraminal narrowing. C6-C7: Mild degenerative canal stenosis. Mild left foraminal narrowing. C7-T1: Canal and foramina are patent. IMPRESSION: Chronic C1 and C2 fractures. Fruit Grader Operator: PSCB Transcribe Date/Time: Jul 20 2024 4:34A Dictated by : LESLIE RUDOLPH MD This examination was interpreted and the report reviewed and electronically signed by: LESLIE RUDOLPH MD on Jul 20 2024 5:15AM EST [id number] Normal [facility] XR CERVICAL 3V AP/LAT/ODONon 07-20-2024 XR CERVICAL 3V AP/LAT/ODON * * *Final Report* * * DATE OF EXAM: Jul 20 2024 12:40AM [facility] [id number] - XR CERVICAL 3V AP/LAT/ODON / PROCEDURE REASON: Trauma * * * * Physician Interpretation * * * * EXAMINATION: XR CERVICAL 3V AP/LAT/ODON HISTORY: trauma fracture Trauma. TECHNIQUE: XR CERVICAL 3V AP/LAT/ODON Laterality: NOT APPLICABLE Number of different views (projections): 2 M: XB_1 COMPARISON: Outside CT dated 07/19/2024. RESULT: 3 images were obtained with the patient in a cervical spine collar. Limited assessment of the odontoid process due to overlapping structures. Fracture through the odontoid process is noted on prior outside CT is favored to represent a subacute to chronic odontoid process fracture given sclerosis and irregularity of the fracture margins. Displaced posterior arch of C1 also favored to be subacute to chronic when correlated to outside CT as the left fracture margins do not align and there is irregularity of the fracture margins to the anterior ring of C1. Odontoid process appears well centered between the lateral masses of C1. Slight posterior tilt of the odontoid process noted on CT is not well seen radiographically. Cervical spine alignment is otherwise maintained. Cervical vertebral body heights are maintained. Multilevel degenerative changes the cervical spine with severe disc height loss at C3-4 C5, C5-C6, and C6-C7. Multilevel facet degenerative changes. Osteopenia. Dental hardware. IMPRESSION: Fractures of C1 and C2 better assessed on outside CT of the cervical spine. Posterior subluxation of C1 on C2 which is relatively symmetric bilaterally is not well seen radiographically and better assessed on CT. Fractures are favored to represent subacute to chronic fractures as described. Correlation with pending MRI to assess for bone marrow edema is recommended to exclude the possibility of superimposed acute injury. No more remote comparisons available. If such studies exist, this would be helpful to determine chronicity of these findings Fruit Grader Operator: YARITZA Transcribe Date/Time: Jul 20 2024 2:44A Dictated by : MARY LOU ORTEGA MD This examination was interpreted and the report reviewed and electronically signed by: MARY LOU ORTEGA MD on Jul 20 2024 2:52AM EST [id number] Normal [facility] Basic Metabolic Profile (BMP )on 07-19-2024 BUN/CRE 16.0 RATIO Normal 10-20 [facility] Comment on above: Performed By: #### L 100.0100, L500.2500 ####[facility] [address] [place], [address] CA,Total 9.3 mg/dL Normal 8.5-10.1 [facility] Comment on above: Performed By: #### L 100.0100, L500.2500 ####[facility] [address] [place], [address] Chloride [Moles/Vol] 107 mmol/L Normal 98-107 [facility] Comment on above: Performed By: #### L 100.0100, L500.2500 ####[facility] [address] [place], [address] CO2 [Moles/Vol] 25.0 mmol/L Normal 21.0-32.0 [facility] Comment on above: Performed By: #### L 100.0100, L500.2500 ####[facility] [address] [place], [address] Creatinine [Mass/Vol] 0.88 mg/dL Normal 0.55-1.02 [facility] Comment on above: Result Comment: The validity of the calculated GFR GFRAA in patients over 70 years has not been determined. Clinical correlation is essential. Performed By: #### L 100.0100, L500.2500 ####[facility] [address] [place], [address] ECRCL 34.95 ml/min Normal [facility] Comment on above: Performed By: #### L 100.0100, L500.2500 ####[facility] [address] [place], [address] EST GFR - AA 78 mL/min Normal >60 [facility] Comment on above: Result Comment: Afri can Liberian GFR Calc Performed By: #### L 100.0100, L500.2500 ####[facility] [address] [place], [address] GAP 5 Normal 5-15 [facility] Comment on above: Performed By: #### L 100.0100, L500.2500 ####[facility] [address] [place], [address] GFR/1.73 sq M.predicted among non-blacks MDRD (S/P/Bld) [Vol rate/Area] 65 mL/min/{1.73_m2} Normal >60 [facility] Comment on above: Result Comment: Non- GFR Calc Performed By: #### L 100.0100, L500.2500 ####[facility] [address] [place], [address] Glucose [Mass/Vol] 125 mg/dL High 74-106 [facility] Comment on above: Result Comment: Fast ing Glucose result from 100 to 125 mg/dL suggests IMPAIRED HOMEOSTASIS per A.D.A. criteria. Performed By: #### L 100.0100, L500.2500 ####[facility] [address] [place], [address] Potassium [Moles/Vol] 4.1 mmol/L Normal 3.5-5.1 [facility] Comment on above: Performed By: #### L 100.0100, L500.2500 ####[facility] [address] [place], [address] Sodium [Moles/Vol] 137 mmol/L Normal 136-145 [facility] Comment on above: Performed By: #### L 100.0100, L500.2500 ####[facility] [address] [place], [address] Urea nitrogen [Mass/Vol] 14 mg/dL Normal 7-18 [facility] Comment on above: Performed By: #### L 100.0100, L500.2500 ####[facility] [address] [place], [address] Brain/Head without Contrasto n 07-19-2024 Brain/Head without Contrast [facility] Imaging Services [address] [place] [address] Brain/Head without Contrast MR#: [id number] Acct: [id number] Name: BASHIR SYKES Rep #: [id number] : 1935 F 88 From: Sergio Harvey MD PCP: Dr. Sagar Horton MD Status: REG Study: Brain/Head without Contrast Date of Exam: 07/06 01/27 Exam# [id number] Ordering Dr: Venu Gomez DO [id number] STUDY: CT BRAIN WITHOUT CONTRAST REASON FOR EXAM: Female, 88 years old. fall RADIATION DOSAGE (If Supplied By Facility): CTDIvol = ( 44.99 ) mGy, DLP = ( 779.24 ) mGycm TECHNIQUE: Transaxial CT imaging of the brain was performed without administration of intravenous contrast material. Individualized dose optimization techniques were used for this CT. COMPARISON: No relevant priors. FINDINGS: There is a hematoma in the scalp overlying the left frontal bone without associated skull fracture. Calcific plaquing of the cavernous carotids Mild atrophy and periventricular white matter ischemic changes.. Normal basal ganglia and thalami. Normal brainstem. Normal cerebellum. There is no intracranial hemorrhage. There are no findings of an acute ischemic infarction. Diffuse mucosal thickening in the right maxillary sinus demonstrating increased attenuation possibly due to hemorrhage or fungal components. Mild mucosal thickening of left maxillary sinus. Postsurgical changes of the orbits. CT/Brain/Head without Contrast IMPRESSION: Hematoma in the scalp overlying the left frontal bone without associated skull fracture or acute intracranial hemorrhage. Electronically Signed: Sergio Harvey MD at 16:22 EDT , CC: Dr. Venu Gomez DO; Dr. Sagar Horton MD Fruit Grader Operator: Signed Normal [facility] CBC W/Diff, Automatedon - Absolute Lymph 1.41 X10 3/uL Normal 0.83-4.51 [facility] Comment on above: Performed By: #### L 100.0100, L500.2500 ####[facility] [address] [place], [address] Absolute Neut 7.2 X10 3/uL Normal 2.0-7.7 [facility] Comment on above: Performed By: #### L 100.0100, L500.2500 ####[facility] [address] [place], [address] Basophils/100 WBC (Bld) 0.7 % Normal 0-1 [facility] Comment on above: Performed By: #### L 100.0100, L500.2500 ####[facility] [address] [place], [address] Eosinophils/100 WBC (Bld) 0.8 % Normal 0-5 [facility] Comment on above: Performed By: #### L 100.0100, L500.2500 ####[facility] [address] [place], [address] Erythrocyte distribution width (RBC) [Ratio] 13.4 % Normal 11.6-14.6 [facility] Comment on above: Performed By: #### L 100.0100, L500.2500 ####[facility] [address] [place], [address] Hematocrit (Bld) [Volume fraction] 39.6 % Normal 37-47 [facility] Comment on above: Performed By: #### L 100.0100, L500.2500 ####[facility] [address] [place], [address] Hemoglobin (Bld) [Mass/Vol] 12.8 g/dL Normal 12.0-15.0 [facility] Comment on above: Performed By: #### L 100.0100, L500.2500 ####[facility] [address] [place], [address] IG% 0.300 Normal 0.0-0.9 [facility] Comment on above: Result Comment: IG% - Immature Granulocytes (promyelocytes, myelocytes and metamyelocytes) > 1% indicates that a LEFT SHIFT is Present. Performed By: #### L 100.0100, L500.2500 ####[facility] [address] [place], [address] Lymphocytes/100 WBC (Bld) 15.0 % Low 19-41 [facility] Comment on above: Performed By: #### L 100.0100, L500.2500 ####[facility] [address] [place], [address] MCH (RBC) [Entitic mass] 30.7 pg Normal 27.0-32.0 [facility] Comment on above: Performed By: #### L 100.0100, L500.2500 ####[facility] [address] [place], [address] MCHC (RBC) [Mass/Vol] 32.3 g/dL Normal 32-36 [facility] Comment on above: Performed By: #### L 100.0100, L500.2500 ####[facility] [address] [place], [address] MCV (RBC) [Entitic vol] 95.0 fL Normal 81-99 [facility] Comment on above: Performed By: #### L 100.0100, L500.2500 ####[facility] [address] [place], [address] Monocytes/100 WBC (Bld) 7.0 % Normal 0-10 [facility] Comment on above: Performed By: #### L 100.0100, L500.2500 ####[facility] [address] [place], [address] Neutrophils/100 WBC (Bld) 76.2 % High 47-70 [facility] Comment on above: Performed By: #### L 100.0100, L500.2500 ####[facility] [address] [place], [address] Nucleated RBC (Bld) [#/Vol] 0 10*3/uL Normal 0-5 [facility] Comment on above: Performed By: #### L 100.0100, L500.2500 ####[facility] [address] [place], [address] Platelet mean volume (Bld) [Entitic vol] 11.2 fL Normal 6.2-12.0 [facility] Comment on above: Performed By: #### L 100.0100, L500.2500 ####[facility] [address] [place], [address] Platelets (Bld) [#/Vol] 211 10*3/uL Normal 150-450 [facility] Comment on above: Performed By: #### L 100.0100, L500.2500 ####[facility] [address] [place], [address] RBC (Bld) [#/Vol] 4.17 10*6/uL Low 4.2-5.4 [facility] Comment on above: Performed By: #### L 100.0100, L500.2500 ####[facility] [address] [place], [address] RDW SD 46.9 fl High 35.1-43.9 [facility] Comment on above: Performed By: #### L 100.0100, L500.2500 ####[facility] [address] [place], [address] WBC (Bld) [#/Vol] 9.4 10*3/uL Normal 4.4-11.0 [facility] Comment on above: Performed By: #### L 100.0100, L500.2500 ####[facility] [address] [place], [address] CONSULTon 07-19-2024 CONSULT HNO ID: [id number] Author: GANGA GOMEZ DO Service: Orthopaedic Surgery Author Type: Physician Type: Consults Filed: 07/20/2024 08:58 Note Text: ORTHOPAEDIC SURGERY CONSULT Orthopaedic Spine Surgery Attending Addendum I personally saw and evaluated the patient. I agree with the history, physical examination, assessment, and plan as documented in the resident's note with the following additions/changes: 88 year old female with history notable for hypertension presenting with fall. Patient states that she does not have any neck pain. States that all of her pain is in her face. States that she has had a fall in the past where she did have neck pain. Denies any burning in her hands. Denies a loss of dexterity. Denies any loss of balance at baseline.. Exam: MOTOR: Upper Extremity Left Right Deltoids 5/5 5/5 Biceps 5/5 5/5 Triceps 5/5 5/5 Turpentine Distiller 5/5 5/5 Interossei 5/5 5/5 Lower Extremity Hip Flexors 5/5 5/5 Quadriceps 5/5 5/5 Dorsiflexion 5/5 5/5 EHL/EDC 5/5 5/5 Plantar Flexion 5/5 5/5 Negative Abe's bilaterally SENSORY: Sensation intact to light touch C5-T1, L1-S1 Reviewed imaging including CT, x-ray, MRI of the cervical spine. Imaging demonstrates C1 posterior arch fracture that is chronic as well as a C2 odontoid fracture that is moderately displaced and posterior angulated that is chronic. X-rays display posterior displacement of fracture fragment. Radiology reports also reviewed. Assessment and plan: Is a 88-year-old female with a chronic C2 odontoid fracture. -I had a long discussion today with the patient. I reviewed all of her imaging with her. Her odontoid fracture is chronic. It is displaced. It appears that it displaces on standing x-rays. The patient does not want any surgical intervention for this. She is neurologically intact. I discussed operative and nonoperative treatment options. I discussed the potential risk for neurologic compromise without surgical intervention. The patient is aware of this risk. She again does not want surgery of any kind. She will follow-up as an outpatient. Orthopedic spine team will sign off at this time. Please contact spine team the patient develops any new or worsening symptoms. Ganga Gomez, Orthopaedic Spine Surgery Pt: BASHIR SYKES Date of Consultation: 07/19/2024 Physician Consulted: Dr. Donavan Gomez Reason for Consultation: Neck Pain HPI/ROS: 88 year old female presented to [facility] ED as a transfer from [facility] on 07/19/2024 for evaluation of neck fracture found on initial trauma workup. The patient endorses a fall while walking into the [facility], striking her forehead onto the pavement. She noted subsequent and immediate facial pain above the left orbit. She denies loss of consciousness. The patient lives at home alone and does not utilizes ambulation assistance devices at baseline. The patient denies anticoagulation utilization. The patient endorses anterior headache however denies occipital headache. She denies blurry vision, nausea/vomiting, diplopia, vertigo, fever/chills or other constitutional symptoms at this time. The patient endorses an abrasion to her left knee however has no additional orthopaedic complaints at this time. 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 Current Outpatient Medications Medication Sig Levothyroxine 75 mcg ORAL Cap Take by mouth. pravastatin 40 mg ORAL tablet Take 40 mg by mouth once daily. amLODIPine 5 mg ORAL tablet Take 5 mg by mouth once daily. (Patient not taking: Reported on 02/12/2021 ) metoprolol tartrate, short acting, 50 mg ORAL tablet Take 50 mg by mouth twice daily. (Patient not taking: Reported on 02/12/2021 ) hydroxychloroquine (PLAQUENIL) 200 mg ORAL tablet Take by mouth once daily. warfarin 5 mg ORAL tablet Take 5 mg by mouth once daily. Patient takes as directed. (Patient not taking: Reported on 02/12/2021 ) warfarin 6 mg ORAL tablet Take 6 mg by mouth once daily. Takes as directed. (Patient not taking: Reported on 02/12/2021 ) zolpidem (AMBIEN) 5 mg ORAL tablet Take 5 mg by mouth at bedtime as needed. (Patient not taking: Reported on 02/12/2021) Calcium Carbonate-Vitamin D3 (VITAMIN D-3) 180-5,000 mg-unit ORAL Tab Take by mouth. gisnxod-fgxvmjuvm-aa tamin D3 500 mg(1,250mg) -200 unit ORAL per tablet Take 1 tablet by mouth twice daily with meals. LORazepam 0.5 mg ORAL Tab (more content not included)... Normal [facility] ED NOTEon 07-19-2024 ED NOTE HNO ID: [id number] Author: RODRIGO MIDDLETON RN Service: Emergency Medicine Author Type: Registered Nurse Type: ED Notes Filed: 07/19/2024 22:32 Note Text: Pt placed in [place] collar at this time Normal [facility] ED NOTE HNO ID: [id number] Author: RODRIGO MIDDLETON RN Service: Emergency Medicine Author Type: Registered Nurse Type: ED Notes Filed: 07/19/2024 22:20 Note Text: Ortho at bedside Normal [facility] ED NOTE HNO ID: [id number] Author: JOSE LUIS SIDDIQI RN Service: ? Author Type: Registered Nurse Type: ED Notes Filed: 07/19/2024 20:33 Note Text: Bed: 17-ED Expected date: Expected time: Means of arrival: Comments: [place] transfer Normal [facility] ED PROV NOTEon 07-19-2024 ED PROV NOTE HNO ID: [id number] Author: YESSICA LOCKHART MD Service: Emergency Medicine Author Type: Physician Type: ED Provider Notes Filed: 07/19/2024 21:06 Note Text: HPI: Patient seen in conjunction with resident doctor. See their note for further information. I saw and independently evaluated the patient. Briefly patient presents for mechanical fall with evidence of a C1 arch fracture and a type II dens fracture. She also injured the left side of her forehead with bruising there and left knee. Not on thinners. No loss of consciousness. Fall occurred because patient slipped. Patient has no complaints at this time, of weakness or numbness. No pain in her neck. No other acute sick symptoms. Physical exam Vital signs reviewed Patient sitting up in bed, awake and alert, no acute distress Head normocephalic left cephalhematoma along the orbital rim without step-offs, EOMI Patient in c-collar, which will be maintained secondary to previously discovered C1 and type II dens fracture Heart regular rate and rhythm no murmurs gallops or rubs Lungs clear to auscultation bilaterally no wheezes rales or rhonchi speaking in complete sentences, no increased work of breathing Abdomen soft nontender nondistended. No masses organomegaly palpated Moving all 4 extremities equally and symmetrically, strength and tone equal and symmetric Bruising over left knee with some swelling No notable rashes or wounds Medical decision making: Patient presenting with C1 arch fracture and type II dens fracture. Found at outside hospital. Ortho spine will be consulted. Neurovascularly intact. No other major traumatic findings. Plan for disposition per plan of orthospine team This note was created using [employer] dictation software. Every attempt was made to proofread, however you may find errors regardless of how insignificant they may be. They are purely unintentional and if there are any concerns regarding this dictation, please do not hesitate to call the dictating provider for clarification. YESSICA LOCKHART 07/19/242105 Normal [facility] Emergency Department Summary on 07-19-2024 Emergency Department Summary [facility] Medical Records Department [address] [place] [address] Emergency Department Summary 07/19/24 MR#: [id number] Acct: [id number] Name: BASHIR SYKES Rep #: [id number] : 1935 [id number] From: Venu Gomez DO PCP: Dr. Sagar Horton MD Status:DEP ER Location: ED HPI History of Present Illness Chief Complaint: Fall Detail of Chief Complaint: Fall Informant: patient Narrative Narrative: Patient presents to the emergency department after sustaining a fall around 2 PM. Patient states that she tripped over a curb and fell onto concrete and some gravel. She did strike her head but no loss of consciousness. She injured her left knee. Sustained a small laceration along the nail of the right small finger. She is unsure of her last tetanus but states that her primary care physician typically keeps her up-to-date on such matters. Patient denies neck pain. She has been up and ambulatory but having pain in the left knee which she has had replaced in the past. [facility] Medical History Cat scratch of right lower leg Cellulitis of right lower leg Traumatic open wound of right lower leg Non-pressure ulcer of right lower extremity with fat layer exposed Cellulitis of left lower limb Hyperlipidemia Laceration of left lower leg with complication Skin tear of left lower leg without complication Cervical myofascial strain Contusion, nose Laceration of left hand Forehead abrasion Laceration of right lower leg Arthritis Varicose veins of both lower extremities with inflammation Chronic venous insufficiency Right leg pain History of TIA (transient ischemic attack) History of cerebral aneurysm History of patellar fracture Osteoporosis History of deep vein thrombosis History of pulmonary embolism Small intestinal bacterial overgrowth Microscopic colitis Diarrhea Home Medications ???Medication ???Instructions ???Recorded ???Last Taken ???Type levothyroxine 75 mcg tablet 75 mcg PO DAILY thyroid 07/23/13 11/13/19 History calcium 500 mg (as 1 ea PO DAILY supplement 02/10/14 Unknown History carbonate)-vitamin D3 10 mcg (400 unit) tablet hydroxychloroquine 200 mg tablet 300 mg PO DAILY arthritis 05/29/19 Unknown History metoprolol succinate 25 mg 25 mg PO DAILY bp/heart 05/29/19 Unknown History tablet,extended release 24 hr acetaminophen 325 mg tablet 650 mg (2 x 325 mg) PO Q6H PRN PRN 11/15/19 Unknown Rx Pain Score 1-10/Temp > 100.7 F #100 tabs PRAMIPEXOLE DIHYDROCHLORIDE 0.125 mg PO QHS PRN INSOMNIA 08/05/23 Unknown History Boostrix Tdap 2.5 Lf unit-8 mcg-5 0.5 ml IM ONCE #1 mL 03/02/24 Unknown Clinic Lf/0.5 mL intramuscular syringe (diphth,pertus(acell ),tetanus) biotin 1 mg capsule 1 mg PO DAILY 06/18/24 Unknown History magnesium glycinate 100 mg (as 100 mg PO DAILY 06/18/24 Unknown History glycinate) tablet (Mag Glycinate) amoxicillin 875 mg-potassium 1 tab PO BID #20 tabs 06/25/24 Unknown Rx clavulanate 125 mg tablet Allergy/AdvReac Type Severity Reaction Status Date / Time No Known Allergies Allergy Verified 03/03/24 13:06 Family History Father CVA (cerebral vascular accident) Mother CVA (cerebral vascular accident) Surgical History History of total left knee replacement History of breast biopsy History of right knee surgery History of carpal tunnel release Social History Smoking Status: Never smoker alcohol intake: current alcohol intake frequency: a few times a month ROS ROS ED Review of Systems ROS Unobtainable: other Constitutional Constitutional ED: Reports lethargy; Denies chills, fever(s), sweats or weight loss Eyes Eyes: Denies blurry vision, change in vision or diplopia ENT ENT ED: Denies rhinorrhea or sore throat Cardiovascular Cardiovascular: Denies chest pain, orthopnea or racing heartbeat Respiratory/Chest Respiratory/Chest: Denies cough, dyspnea, dyspnea on exertion, orthopnea or sputum Gastrointestinal Gastrointestinal: Denies abdominal pain, diarrhea, nausea or vomiting Genitourinary Genitourinary ED: Denies dysuria, hematuria or urinary frequency Musculoskeletal Musculoskeletal: Reports other Details: Left knee pain/swelling Right small finger laceration ; Denies arthralgias, back pain, myalgias or neck pain Integumentary Denies abscess, Abrasions or rash Neurologic Neurologic: Reports headache(s); Denies weakness Psychiatric Psychiatric: Denies anxiety, depression or suicidal thoughts Endocrine Endocrinology: Denies polydipsia, polyphagia or polyuria Hematologic/Lymphati c Hematologic/Lymphati c: Denies easy bleeding, easy bruising or lymphadenopath (more content not included)... Normal [facility] Knee 4 or More Viewson 07-19 Knee 4 or More Views [facility] Imaging Services [address] [place], [place] [address] Knee 4 or More Views MR#: [id number] Acct: [id number] Name: BASHIR SYKES Rep #: [id number] : 1935 F 88 From: Sergio Harvey MD PCP: Dr. Sagar Horton MD Status: REG ER Study: Knee 4 or More Views Date of Exam: 07/19/24 Exam# [id number] Ordering Dr: Venu Gomez DO [id number] STUDY: X-RAY - LEFT KNEE REASON FOR EXAM: Female, 88 years old. injury TECHNIQUE: 4 view(s) of the knee. COMPARISON: None. FINDINGS: Knee prosthesis is noted in anatomic alignment and position. Focal severe diffuse soft tissue swelling in the anterior superior medial aspect of the knee. This may represent a large soft tissue hematoma however cannot exclude Quintanilla Maxi lesion. MRI would be useful for further evaluation if indicated RAD/Knee 4 or More Views IMPRESSION: Severe focal soft tissue swelling of the anterior superior medial aspect of the knee. Stable appearance to knee prosthesis Electronically Signed: Sergio Harvey MD at 16:55 EDT Reading Location ID and State: [facility] / [place] Tel , Service support , CC: Dr. Venu Gomez DO; Dr. 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 Sgaar Horton MD Status: REG ER Study: Spine Cervical without Contras Date of Exam: Exam# [id number] Ordering Dr: Venu Gomez DO ADDENDUM by Dr. Sergio Harvey MD on 07/19/24 at 1636 [id number] STUDY: CT CERVICAL SPINE WITHOUT CONTRAST REASON FOR EXAM: Female, 88 years old. fall RADIATION DOSAGE (If Supplied By Facility): CTDIvol = ( 12.40 ) mGy, DLP = ( 250.02 ) mGycm TECHNIQUE: High resolution transaxial imaging was performed without contrast material. Sagittal and coronal images were reconstructed. Individualized dose optimization techniques were used for this CT. COMPARISON: March 30, 2023 FINDINGS: Normal craniovertebral junction. Normal anterior atlantoaxial articulation. There is an obliquely oriented type II fracture of the odontoid process with mild separation of fracture fragments. There is also comminuted fracture through the anterior arch of C1 with mild separation of fracture fragments Normal cervical lordosis. Mild scoliosis or splinting secondary to muscle spasm Normal vertebral bodies and posterior osseous elements. C2-3: Normal endplates. Normal disc height and morphology. Normal central canal and intervertebral neuroforamina. C3-4: Normal endplates. Normal disc height and morphology. Normal central canal. Severe right neural foraminal stenosis and mild narrowing on the left secondary to bony hypertrophy C4-5: Normal endplates. Normal disc height and morphology. Normal central canal and mild bilateral neural foraminal encroachment secondary to bony hypertrophy. C5-6: Narrowed disc space and endplate spurring with small central osteophyte protrusion. Mild narrowing of the central canal. Moderate right neural neural foraminal stenosis and more severe narrowing on the left secondary to bony hypertrophy C6-7: Narrowed disc space and endplate spurring. Normal central canal. Mild left neural foraminal stenosis secondary to bony hypertrophy C7-T1: Normal endplates. Normal disc height and morphology. Normal central canal and intervertebral neuroforamina. There is very minimal predental soft tissue thickening and the fractures are new finding since prior exam suggesting recent injuries however the fracture fragments demonstrate sclerotic margins raising question of prior injury which hasn''t healed Clinical correlation is recommended. 07/19/24 1636 Date cc: Dr. Venu Gomez DO; Dr. Sagar Horton MD * Signed ADDENDUM by Dr. Sergio Harvey MD on 07/19/[address]/Spine Cervical without Contras IMPRESSION: Type II fracture of the odontoid process and and fracture of the anterior arch of C1 which are new finding since prior exam on March 30, 2023. Moderate spondylosis and multilevel spinal stenosis secondary to bony hypertrophy N.B. : The above Results were Read Back by Sergio Harvey MD to Venu Gomez DO, and understanding confirmed on 07/19/2024 16:31:14 (ET). Electronically Signed: Sergio Harvey MD at 16:36 EDT , 07/19/24 1643 Date cc: Dr. Venu Gomez DO; Dr. Sagar Horton MD * Signed [id number] STUDY: CT CERVICAL SPINE WITHOUT CONTRAST REASON FOR EXAM: Female, 88 years old. fall RADIATION DOSAGE (If Supplied By Facility): CTDIvol = ( 12.40 ) mGy, DLP = ( 250.02 ) mGycm TECHNIQUE: High resolution transaxial imaging was performed without contrast material. Sagittal and coronal images were reconstructed. Individualized dose optimization techniques were used for this CT. COMPARISON: March 30, 2023 FINDINGS: Normal craniovertebral junction. Normal anterior atlantoaxial articulation. There is an obliquely oriented type II fracture of the odontoid process with mild separation of fracture fragments. There is also comminuted fracture through the anterior arch of C1 with mild separation of fracture fragments Normal cervical lordosis. Mild scoliosis or splinting secondary to muscle spasm Normal vertebral bodies and posterior osseous elements. C2-3: Normal endplates. Normal disc height and morphology. Normal central canal and intervertebral neuroforamina. C3-4: Normal endplates. Normal disc height and morphology. Normal central canal. Severe right neural foraminal stenosis and mild narrowing on the left secondary to bony hypertrophy C4-5: No (more content not included)... Normal [facility] History AND Physic melissa 06-18-2024 Wound Ctr History & Physical [facility] [address] [place] [id number] H P Exam - Wound Care 06/18/24 1126 MR#: [id number] Acct: [id number] Name: BASHIR SYKES Rep #: [id number] : 1935 88 From: Seda Ballesteros DO PCP: Dr. Sagar Horton MD Status:REG RCR Location: History of Present Illness Date of Service: 06/18/24 Chief Complaint: Skin tear of the right pretibial surface History of Wound: Bashir is a pleasant 88-year-old female who is presents today to the wound healing center for treatment of an ulcer of her right archer that occurred after she received a skin tear to her right archer which occurred from the zipper of her pants when she was pulling them up. This occurred approximately 2 weeks ago and she was seen by her PCP Dr. Horton and treated with Rocephin IM x 1 dose and a 2 week course of Doxycyline and Cephalexin. She reports that there is a small amount of drainage and she has been dressing the ulcer with hydrogel and a bandaid. She reports some mild tenderness medial to the ulcer. She has been treated at the [facility] previously for chronic, non-healing wounds of both lower legs. She denies a history of thromboembolic disease. She denies fever, chills, increased drainage erythema. 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 layer exposed Cellulitis of left lower limb Hyperlipidemia Laceration of left lower leg with complication Skin tear of left lower leg without complication Cervical myofascial strain Contusion, nose Laceration of left hand Forehead abrasion Laceration of right lower leg Arthritis Varicose veins of both lower extremities with inflammation Chronic venous insufficiency Right leg pain History of TIA (transient ischemic attack) History of cerebral aneurysm History of patellar fracture Osteoporosis History of deep vein thrombosis History of pulmonary embolism Small intestinal bacterial overgrowth Microscopic colitis Diarrhea Home Medications ???Medication ???Instructions ???Recorded ???Last Taken ???Type levothyroxine 75 mcg tablet 75 mcg PO DAILY thyroid 07/23/13 11/13/19 History calcium carbonate 500 mg-vitamin 1 ea PO DAILY supplement 02/10/14 Unknown History D3 10 mcg (400 unit) tablet hydroxychloroquine 200 mg tablet 300 mg PO DAILY arthritis 05/29/19 Unknown History metoprolol succinate 25 mg 25 mg PO DAILY bp/heart 05/29/19 Unknown History tablet,extended release 24 hr acetaminophen 325 mg tablet 650 mg (2 x 325 mg) PO Q6H PRN PRN 11/15/19 Unknown Rx Pain Score 1-10/Temp > 100.7 F #100 tabs PRAMIPEXOLE DIHYDROCHLORIDE 0.125 mg PO QHS PRN INSOMNIA 08/05/23 Unknown History Boostrix Tdap 2.5 Lf unit-8 mcg-5 0.5 ml IM ONCE #1 mL 03/02/24 Unknown Clinic Lf/0.5 mL intramuscular syringe (diphth,pertus(acell ),tetanus) biotin 1 mg capsule 1 mg PO DAILY 06/18/24 Unknown History magnesium glycinate 100 mg (as 100 mg PO DAILY 06/18/24 Unknown History glycinate) tablet (Mag Glycinate) Allergy/AdvReac Type Severity Reaction Status Date / Time No Known Allergies Allergy Verified 03/03/24 13:06 Family History Father CVA (cerebral vascular accident) Mother CVA (cerebral vascular accident) Surgical History History of total left knee replacement History of breast biopsy History of right knee surgery History of carpal tunnel release Social History Smoking Status: Never smoker alcohol intake: current alcohol intake frequency: a few times a month ROS Constitutional Constitutional: Denies chills, fatigue or fever(s) Eyes Eyes: Denies blurry vision, change in vision or loss of vision ENT HEENT: Denies dysphagia, hearing loss or sore throat Cardiovascular Cardiovascular: Denies chest pain, edema or palpitations Respiratory/Chest Respiratory/Chest: Denies dry cough, dyspnea, dyspnea on exertion, productive cough or wheezing Gastrointestinal Gastrointestinal: Denies diarrhea, nausea or vomiting Genitourinary Genitourinary: Denies dysuria or polyuria Musculoskeletal Musculoskeletal: Denies arthralgias, joint stiffness or muscle weakness Integumentary Integumentary: Reports erythema and wounds Neurologic Neurologic: Denies dizziness, memory loss or weakness Psychiatric Psychiatric: Denies homicidal ideation or suicidal ideation Endocrine Endocrinology: Denies polydipsia, polyphagia or polyuria Hematologic/Lymphati c Hematologic/Lymphati c: Denies easy bleeding or easy bruising Allergic/Immunologic Allergic/Immun (more content not included)... Normal [facility] Wound Cultureon 06-18-2024 WC Staphylococcus haemolyticus Amount Growth Rare Staphylococcus haemolyticus: REACTION cefOXitin Susc Islt POS Clindamycin Islt NICHOLAS 0.25 S Clindamycin.induced Susc Islt NEG Erythromycin Islt NICHOLAS >=8 R Gentamicin Islt NICHOLAS <=0.5 S Linezolid Islt NICHOLAS 2 S Oxacillin Susc Islt 1 R Tetracycline Islt NICHOLAS <=1 S Vancomycin Islt NICHOLAS <=0.5 S Normal [facility] Comment on above: Performed By: #### M 100.3000, M100.4001, M8200.1075, M1.1999 ####[facility] [address] [place], [address] Culture, Anaerobic Any Sourc satish 06-17-2024 CUAN No anaerobic bacteria isolated. Normal [facility] Comment on above: Performed By: #### M 100.3000, M100.4001, M8200.1075, ####[facility] [address] [place], [address] Gram Stainon 06-15-2024 GS Gram Stain No organisms seen Normal [facility] Comment on above: Performed By: #### M 100.3000, M100.4001, M8200.1075, ####[facility] [address] [place], [address] CBC W/Diff, Automatedon 09- Absolute Lymph 2.37 X10 3/uL Normal 0.83-4.51 [facility] Comment on above: Performed By: #### L 500.4050, L100.0100 #### [facility] [address] [place], [address] Absolute Neut 5.3 X10 3/uL Normal 2.0-7.7 [facility] Comment on above: Performed By: #### L 500.4050, L100.0100 #### [facility] [address] [place], [address] Basophils/100 WBC (Bld) 0.9 % Normal 0-1 [facility] Comment on above: Performed By: #### L 500.4050, L100.0100 #### [facility] [address] [place], [address] Eosinophils/100 WBC (Bld) 2.7 % Normal 0-5 [facility] Comment on above: Performed By: #### L 500.4050, L100.0100 #### [facility] [address] [place], [address] IG% 0.600 Normal 0.0-0.9 [facility] Comment on above: Result Comment: IG% - Immature Granulocytes (promyelocytes, myelocytes and metamyelocytes) > 1% indicates that a LEFT SHIFT is Present. Performed By: #### L 500.4050, L100.0100 #### [facility] [address] [place], [address] Lymphocytes/100 WBC (Bld) 26.8 % Normal 19-41 [facility] Comment on above: Performed By: #### L 500.4050, L100.0100 #### [facility] [address] [place], [address] Monocytes/100 WBC (Bld) 9.4 % Normal 0-10 [facility] Comment on above: Performed By: #### L 500.4050, L100.0100 #### [facility] [address] [place], [address] Neutrophils/100 WBC (Bld) 59.6 % Normal 47-70 [facility] Comment on above: Performed By: #### L 500.4050, L100.0100 #### [facility] [address] [place], [address] Nucleated RBC (Bld) [#/Vol] 0 10*3/uL Normal 0-5 [facility] Comment on above: Performed By: #### L 500.4050, L100.0100 #### [facility] [address] [place], [address] Platelet mean volume (Bld) [Entitic vol] 11.4 fL Normal 6.2-12.0 [facility] Comment on above: Performed By: #### L 500.4050, L100.0100 #### [facility] [address] [place], [address] Platelets (Bld) [#/Vol] 218 10*3/uL Normal 150-450 [facility] Comment on above: Performed By: #### L 500.4050, L100.0100 #### [facility] [address] [place], [address] RDW SD 49.7 fl High 35.1-43.9 [facility] Comment on above: Performed By: #### L 500.4050, L100.0100 #### [facility] [address] [place], [address] Erythrocyte distribution width (RBC) [Ratio] 14.3 % Normal 11.6-14.6 [facility] Comment on above: Performed By: #### L 500.4050, L100.0100 #### [facility] [address] [place], [address] Hematocrit (Bld) [Volume fraction] 43.1 % Normal 37-47 [facility] Comment on above: Performed By: #### L 500.4050, L100.0100 #### [facility] [address] [place], [address] Hemoglobin (Bld) [Mass/Vol] 13.8 g/dL Normal 12.0-15.0 [facility] Comment on above: Performed By: #### L 500.4050, L100.0100 #### [facility] [address] [place], [address] MCH (RBC) [Entitic mass] 30.4 pg Normal 27.0-32.0 [facility] Comment on above: Performed By: #### L 500.4050, L100.0100 #### [facility] [address] [place], [address] MCHC (RBC) [Mass/Vol] 32.0 g/dL Normal 32-36 [facility] Comment on above: Performed By: #### L 500.4050, L100.0100 #### [facility] [address] [place], [address] MCV (RBC) [Entitic vol] 94.9 fL Normal 81-99 [facility] Comment on above: Performed By: #### L 500.4050, L100.0100 #### [facility] [address] [place], [address] RBC (Bld) [#/Vol] 4.54 10*6/uL Normal 4.2-5.4 [facility] Comment on above: Performed By: #### L 500.4050, L100.0100 #### [facility] [address] [place], [address] WBC (Bld) [#/Vol] 8.8 10*3/uL Normal 4.4-11.0 [facility] Comment on above: Performed By: #### L 500.4050, L100.0100 #### [facility] [address] [place], [address] Comprehensive Metabolic Prof [facility] 06-08-2024 Albumin [Mass/Vol] 3.7 g/dL Normal 3.2-5.0 [facility] Comment on above: Performed By: #### L 500.4050, L100.0100 #### [facility] [address] [place], [address] Albumin/Globulin [Mass ratio] 1.3 {ratio} Normal 0.9-2.4 [facility] Comment on above: Performed By: #### L 500.4050, L100.0100 #### [facility] [address] [place], [address] ALK P 73 U/L Normal 45-117 [facility] Comment on above: Performed By: #### L 500.4050, L100.0100 #### [facility] [address] [place], [address] ALT [Catalytic activity/Vol] 27 U/L Normal 13-56 [facility] Comment on above: Performed By: #### L 500.4050, L100.0100 #### [facility] [address] [place], [address] AST [Catalytic activity/Vol] 20 U/L Normal 15-37 [facility] Comment on above: Performed By: #### L 500.4050, L100.0100 #### [facility] [address] [place], [address] Bilirubin [Mass/Vol] 0.60 mg/dL Normal 0.20-1.00 [facility] Comment on above: Result Comment: For patients on eltrombopag therapy, use of Dimension Gary TBIL is not recommended. Performed By: #### L 500.4050, L100.0100 #### [facility] [address] [place], [address] BUN/CRE 16.1 RATIO Normal 10-20 [facility] Comment on above: Performed By: #### L 500.4050, L100.0100 #### [facility] [address] [place], [address] CA,Total 9.7 mg/dL Normal 8.5-10.1 [facility] Comment on above: Performed By: #### L 500.4050, L100.0100 #### [facility] [address] [place], [address] Chloride [Moles/Vol] 104 mmol/L Normal 98-107 [facility] Comment on above: Performed By: #### L 500.4050, L100.0100 #### [facility] [address] [place], [address] CO2 [Moles/Vol] 27.0 mmol/L Normal 21.0-32.0 [facility] Comment on above: Performed By: #### L 500.4050, L100.0100 #### [facility] [address] [place], [address] Creatinine [Mass/Vol] 0.93 mg/dL Normal 0.55-1.02 [facility] Comment on above: Result Comment: The validity of the calculated GFR GFRAA in patients over 70 years has not been determined. Clinical correlation is essential. Performed By: #### L 500.4050, L100.0100 #### [facility] [address] [place], [address] EST GFR - AA 73 mL/min Normal >60 [facility] Comment on above: Result Comment: Afri can Liberian GFR Calc Performed By: #### L 500.4050, L100.0100 #### [facility] [address] [place], [address] GAP 7 Normal 5-15 [facility] Comment on above: Performed By: #### L 500.4050, L100.0100 #### [facility] [address] [place], [address] GFR/1.73 sq M.predicted among non-blacks MDRD (S/P/Bld) [Vol rate/Area] 60 mL/min/{1.73_m2} Normal >60 [facility] Comment on above: Result Comment: Non- GFR Calc Performed By: #### L 500.4050, L100.0100 #### [facility] [address] [place], [address] Globulin (S) [Mass/Vol] 2.9 g/dL Normal 2.2-4.2 [facility] Comment on above: Performed By: #### L 500.4050, L100.0100 #### [facility] [address] [place], [address] Glucose [Mass/Vol] 95 mg/dL Normal 74-106 [facility] Comment on above: Performed By: #### L 500.4050, L100.0100 #### [facility] [address] [place], [address] Potassium [Moles/Vol] 4.0 mmol/L Normal 3.5-5.1 [facility] Comment on above: Performed By: #### L 500.4050, L100.0100 #### [facility] [address] [place], [address] Sodium [Moles/Vol] 138 mmol/L Normal 136-145 [facility] Comment on above: Performed By: #### L 500.4050, L100.0100 #### [facility] [address] [place], [address] T PROT 6.6 g/dL Normal 6.4-8.2 [facility] Comment on above: Performed By: #### L 500.4050, L100.0100 #### [facility] [address] [place], [address] Urea nitrogen [Mass/Vol] 15 mg/dL Normal 7-18 [facility] Comment on above: Performed By: #### L 500.4050, L100.0100 #### [facility] [address] [place], [address] Absolute lymphocyte countOrd ered By: Sagar Horton on 02-02-2024 Lymphocytes Auto (Unsp spec) [#/Vol] 2.41 10*3/uL 0.83-4.51 [facility] Automated lymphocyte count a s percentage of total leukocytesOrdered By: Sagar Horton on 02-02-2024 Lymphocytes/100 WBC Auto (Unsp spec) 25.9 % 19-41 [facility] Basophil percentageOrdered B y: Sagar Horton on 02-02-2024 Basophils/100 WBC (Bld) 1.0 % 0-1 [facility] Bilirubin [Mass/Vol] 0.70 mg/dL 0.20-1.00 [facility] Comment on above: For patients on eltr ombopag therapy, use of Dimension Gary TBIL is not recommended. Chloride [Moles/Vol] 107 mmol/L 98-107 [facility] Eosinophils/100 WBC (Bld) 2.1 % 0-5 [facility] Glucose [Mass/Vol] 100 mg/dL 74-106 [facility] Comment on above: Fasting Glucose resu lt from 100 to 125 mg/dL suggests IMPAIRED HOMEOSTASIS per A.D.A. criteria. Hemoglobin (Bld) [Mass/Vol] 13.9 g/dL 12.0-15.0 [facility] Monocytes/100 WBC (Bld) 8.8 % 0-10 [facility] Neutrophils (Bld) [#/Vol] 5.8 10*3/uL 2.0-7.7 [facility] Neutrophils/100 WBC (Bld) 61.9 % 47-70 [facility] Potassium [Moles/Vol] 4.1 mmol/L 3.5-5.1 [facility] Protein [Mass/Vol] 7.0 g/dL 6.4-8.2 [facility] Sodium [Moles/Vol] 140 mmol/L 136-145 [facility] WBC (Bld) [#/Vol] 9.3 10*3/uL 4.4-11.0 [facility] Determination of erythrocyte mean corpuscular volume (MCV)Ordered By: Sagar Horton on 02-02-2024 MCV (RBC) [Entitic vol] 93.1 fL 81-99 [facility] Erythrocyte distribution wid th ratioOrdered By: Sagar Horton on 02-02-2024 Erythrocyte distribution width (RBC) [Ratio] 13.8 % 11.6-14.6 [facility] Erythrocyte distribution wid th standard deviationOrdered By: Sagar Horton on 02-02-2024 Erythrocyte distribution width (RBC) [Entitic vol] 47.2 fL 35.1-43.9 [facility] Hematocrit Auto (Bld) [Volum e fraction]Ordered By: Sagar Horton on 02-02-2024 Hematocrit (Bld) [Volume fraction] 43.4 % 37-47 [facility] Immature granulocytes/100 WB C Auto (Bld)Ordered By: Sagar Horton on 02-02-2024 Immature granulocytes/100 WBC (Bld) 0.300 % 0.0-0.9 [facility] Comment on above: IG% - Immature Granu locytes (promyelocytes, myelocytes and metamyelocytes) > 1% indicates that a LEFT SHIFT is Present. Laboratory - Chemistry and C hemistry - challengeOrdered By: Sagar Horton on 02-02-2024 Albumin/Globulin [Mass ratio] 1.3 {ratio} 0.9-2.4 [facility] ALP [Catalytic activity/Vol] 73 U/L 45-117 [facility] ALT [Catalytic activity/Vol] 22 U/L 13-56 [facility] CO2 [Moles/Vol] 27.0 mmol/L 21.0-32.0 [facility] Globulin (S) [Mass/Vol] 3.1 g/dL 2.2-4.2 [facility] Urea nitrogen/Creatinine [Mass ratio] 12.6 mg/mg 10-20 [facility] Laboratory - Hematology and Cell countsOrdered By: Sagar Horton on 02-02-2024 MCH (RBC) [Entitic mass] 29.8 pg 27.0-32.0 [facility] MCHC (RBC) [Mass/Vol] 32.0 g/dL 32-36 [facility] Nucleated RBC/100 WBC (Bld) [Ratio] 0 % 0-5 [facility] Platelet mean volume (Bld) [Entitic vol] 11.1 fL 6.2-12.0 [facility] Platelets (Bld) [#/Vol] 218 10*3/uL 150-450 [facility] No Panel InformationOrdered By: Sagar Horton on 02-02-2024 Estimated GFR (MDRD) Amer 71 mL/min >60 [facility] Comment on above: GFR Calc Estimated GFR (MDRD) Non-Af Amer 59 mL/min >60 [facility] Comment on above: Non- GFR Calc RBC Auto (Bld) [#/Vol]Ordere d By: Sagar Horton on 02-02-2024 RBC (Bld) [#/Vol] 4.66 10*6/uL 4.2-5.4 [facility] Serum or plasma calcium amalia urement (mass/volume)Ordered By: Sagar Horton on 02-02-2024 Calcium [Mass/Vol] 10.0 mg/dL 8.5-10.1 [facility] Serum or plasma creatinine m easurement (mass/volume)Ordered By: Sagar Horton on 02-02-2024 Creatinine [Mass/Vol] 0.95 mg/dL 0.55-1.02 [facility] [facility] Comment on above: The validity of the calculated GFR & GFRAA in patients over 70 years has not been determined. Clinical correlation is essential. Serum or plasma urea nitroge n measurement (mass/volume)Ordered By: Sagar Horton on 02-02-2024 Urea nitrogen [Mass/Vol] 12 mg/dL 7-18 [facility] Thin prep Papanicolaou smear with manual screeningOrdered By: Sagar Horton on 02-02-2024 Thin prep Papanicolaou smear with manual screening 3.9 g/dL 3.2-5.0 [facility] Thin prep Papanicolaou smear with manual screening 21 U/L 15-37 [facility] Thin prep Papanicolaou smear with manual screening 6 5-15 [facility] Absolute lymphocyte countOrd ered By: Adele Rockwell on 12-16-2023 Lymphocytes Auto (Unsp spec) [#/Vol] 1.79 10*3/uL 0.83-4.51 [facility] Automated lymphocyte count a s percentage of total leukocytesOrdered By: Adele Rockwell on 12-16-2023 Lymphocytes/100 WBC Auto (Unsp spec) 23.8 % 19-41 [facility] Basophil percentageOrdered B y: Adele Rockwell on 12-16-2023 Basophils/100 WBC (Bld) 0.9 % 0-1 [facility] Bilirubin [Mass/Vol] 0.50 mg/dL 0.20-1.[address] [facility] Comment on above: For patients on eltr ombopag therapy, use of Dimension Gary TBIL is not recommended. Chloride [Moles/Vol] 106 mmol/L 98-107 [facility] Eosinophils/100 WBC (Bld) 7.3 % 0-5 [facility] Glucose [Mass/Vol] 93 mg/dL 74-106 [facility] Hemoglobin (Bld) [Mass/Vol] 13.9 g/dL 12.0-15.0 [facility] Monocytes/100 WBC (Bld) 11.0 % 0-10 [facility] Neutrophils (Bld) [#/Vol] 4.3 10*3/uL 2.0-7.7 [facility] Neutrophils/100 WBC (Bld) 56.7 % 47-70 [facility] Potassium [Moles/Vol] 4.1 mmol/L 3.5-5.1 [facility] Protein [Mass/Vol] 6.6 g/dL 6.4-8.2 [facility] Sodium [Moles/Vol] 139 mmol/L 136-145 [facility] WBC (Bld) [#/Vol] 7.5 10*3/uL 4.4-11.0 [facility] Determination of erythrocyte mean corpuscular volume (MCV)Ordered By: Adele Rockwell on 12-16-2023 MCV (RBC) [Entitic vol] 96.0 fL 81-99 [facility] Erythrocyte distribution wid th ratioOrdered By: Adele Rockwell on 12-16-2023 Erythrocyte distribution width (RBC) [Ratio] 13.7 % 11.6-14.6 [facility] Erythrocyte distribution wid th standard deviationOrdered By: Adele Rockwell on 12-16-2023 Erythrocyte distribution width (RBC) [Entitic vol] 48.5 fL 35.1-43.9 [facility] Hematocrit Auto (Bld) [Volum e fraction]Ordered By: Adele Rockwell on 12-16-2023 Hematocrit (Bld) [Volume fraction] 43.3 % 37-47 [facility] Immature granulocytes/100 WB C Auto (Bld)Ordered By: Adele Rockwell on 12-16-2023 Immature granulocytes/100 WBC (Bld) 0.300 % 0.0-0.9 [facility] Comment on above: IG% - Immature Granu locytes (promyelocytes, myelocytes and metamyelocytes) > 1% indicates that a LEFT SHIFT is Present. Laboratory - Chemistry and C hemistry - challengeOrdered By: Adele Rockwell on 12-16-2023 Albumin/Globulin [Mass ratio] 1.1 {ratio} 0.9-2.4 [facility] ALP [Catalytic activity/Vol] 73 U/L 45-117 [facility] ALT [Catalytic activity/Vol] 23 U/L 13-56 [facility] CO2 [Moles/Vol] 27.0 mmol/L 21.0-32.0 [facility] Globulin (S) [Mass/Vol] 3.1 g/dL 2.2-4.2 [facility] Urea nitrogen/Creatinine [Mass ratio] 12.2 mg/mg 10-20 [facility] Laboratory - Hematology and Cell countsOrdered By: Adele Rockwell on 12-16-2023 MCH (RBC) [Entitic mass] 30.8 pg 27.0-32.0 [facility] MCHC (RBC) [Mass/Vol] 32.1 g/dL 32-36 [facility] Nucleated RBC/100 WBC (Bld) [Ratio] 0 % 0-5 [facility] Platelet mean volume (Bld) [Entitic vol] 11.3 fL 6.2-12.0 [facility] Platelets (Bld) [#/Vol] 228 10*3/uL 150-450 [facility] No Panel InformationOrdered By: Adele Rockwell on 12-16-2023 Estimated GFR (MDRD) Amer 76 mL/min >60 [facility] Comment on above: GFR Calc Estimated GFR (MDRD) Non-Af Amer 63 mL/min >60 [facility] Comment on above: Non- GFR Calc RBC Auto (Bld) [#/Vol]Ordere d By: Adele Rockwell on 12-16-2023 RBC (Bld) [#/Vol] 4.51 10*6/uL 4.2-5.4 [facility] Serum or plasma calcium amalia urement (mass/volume)Ordered By: Adele Rockwell on 12-16-2023 Calcium [Mass/Vol] 9.0 mg/dL 8.5-10.1 [facility] Serum or plasma creatinine m easurement (mass/volume)Ordered By: Adele Rockwell on 12-16-2023 Creatinine [Mass/Vol] 0.90 mg/dL 0.55-1.02 [facility] Comment on above: The validity of the calculated GFR & GFRAA in patients over 70 years has not been determined. Clinical correlation is essential. Serum or plasma urea nitroge n measurement (mass/volume)Ordered By: Adele Rockwell on 12-16-2023 Urea nitrogen [Mass/Vol] 11 mg/dL 7-18 [facility] Thin prep Papanicolaou smear with manual screeningOrdered By: Adele Rockwell on 12-16-2023 Thin prep Papanicolaou smear with manual screening 3.5 g/dL 3.2-5.0 [facility] Thin prep Papanicolaou smear with manual screening 19 U/L 15-37 [facility] Thin prep Papanicolaou smear with manual screening 6 5-15 [facility] Absolute lymphocyte countOrd ered By: Sagar Horton on 08-13-2023 Lymphocytes Auto (Unsp spec) [#/Vol] 3.46 10*3/uL 0.83-4.51 [facility] Basophil percentageOrdered B y: Sagar Horton on 08-13-2023 Basophils/100 WBC (Bld) 0.9 % 0-1 [facility] Bilirubin [Mass/Vol] 0.30 mg/dL 0.20-1.00 [facility] Comment on above: For patients on eltr ombopag therapy, use of Dimension Gary TBIL is not recommended. Chloride [Moles/Vol] 105 mmol/L 98-107 [facility] Eosinophils/100 WBC (Bld) 2.5 % 0-5 [facility] Glucose [Mass/Vol] 81 mg/dL 74-106 [facility] Neutrophils (Bld) [#/Vol] 6.2 10*3/uL 2.0-7.7 [facility] Neutrophils/100 WBC (Bld) 54.6 % 47-70 [facility] Potassium [Moles/Vol] 4.4 mmol/L 3.5-5.1 [facility] Protein [Mass/Vol] 6.3 g/dL 6.4-8.2 [facility] Sodium [Moles/Vol] 138 mmol/L 136-145 [facility] WBC (Bld) [#/Vol] 11.3 10*3/uL 4.4-11.0 [facility] Blood erythrocytes count (nu mber/volume)Ordered By: Sagar Horton on 08-13-2023 RBC (Bld) [#/Vol] 4.39 10*6/uL 4.2-5.4 [facility] Blood hemoglobin measurement (mass/volume)Ordered By: Sagar Horton on 08-13-2023 Hemoglobin (Bld) [Mass/Vol] 13.5 g/dL 12.0-15.0 [facility] Blood lymphocytes/100 leukoc ytesOrdered By: Sagar Horton on 08-13-2023 Lymphocytes/100 WBC (Bld) 30.5 % 19-41 [facility] Blood monocytes/100 leukocyt esOrdered By: Sagar Horton on 08-13-2023 Monocytes/100 WBC (Bld) 10.2 % 0-10 [facility] Blood platelet mean volumeOr dered By: Sagar Horton on 08-13-2023 Platelet mean volume (Bld) [Entitic vol] 11.4 fL 6.2-12.0 [facility] Determination of erythrocyte mean corpuscular volume (MCV)Ordered By: Sagar Horton on 08-13-2023 MCV (RBC) [Entitic vol] 97.5 fL 81-99 [facility] Hematocrit Auto (Bld) [Volum e fraction]Ordered By: Sagar Horton on 08-13-2023 Hematocrit (Bld) [Volume fraction] 42.8 % 37-47 [facility] Laboratory - Chemistry and C hemistry - challengeOrdered By: Sagar Horton on 08-13-2023 ALP [Catalytic activity/Vol] 82 U/L 45-117 [facility] ALT [Catalytic activity/Vol] 27 U/L 13-56 [facility] CO2 [Moles/Vol] 27.0 mmol/L 21.0-32.0 [facility] Globulin (S) [Mass/Vol] 3.1 g/dL 2.2-4.2 [facility] Urea nitrogen/Creatinine [Mass ratio] 22.6 mg/mg 10-20 [facility] Laboratory - Hematology and Cell countsOrdered By: Sagar Horton on 08-13-2023 Erythrocyte distribution width (RBC) [Entitic vol] 46.3 fL 35.1-43.9 [facility] Erythrocyte distribution width (RBC) [Ratio] 13.0 % 11.6-14.6 [facility] Immature granulocytes/100 WBC (Bld) 1.300 % 0.0-0.9 [facility] Comment on above: IG% - Immature Granu locytes (promyelocytes, myelocytes and metamyelocytes) > 1% indicates that a LEFT SHIFT is Present. MCH (RBC) [Entitic mass] 30.8 pg 27.0-32.0 [facility] Nucleated RBC/100 WBC (Bld) [Ratio] 0 % 0-5 [facility] MCHC Auto (RBC) [Mass/Vol]Or dered By: Sagar Horton on 08-13-2023 MCHC (RBC) [Mass/Vol] 31.5 g/dL 32-36 [facility] No Panel InformationOrdered By: Sagar Horton on 08-13-2023 Estimated GFR (MDRD) Amer 69 mL/min >60 [facility] Comment on above: GFR Calc Estimated GFR (MDRD) Non-Af Amer 57 mL/min >60 [facility] Comment on above: Non- GFR Calc Thyroid Stimulating Hormone (TSH) 1.97 uIU/mL 0.358-3.74 [facility] Vitamin D 25-Hydroxy 40.2 ng/mL [facility] Comment on above: Vitamin D 25(OH) Sta tus Range Deficiency <20 ng/mL (50nmol/L) Insufficiency 20 - 30 ng/mL (50 - 75 nmol/L) Sufficiency 30 - 100 ng/mL (75 - 250 nmol/L) Toxicity >100 ng/mL (>250 nmol/L) Platelets bldOrdered By: Sagar Horton on 08-13-2023 Platelets (Bld) [#/Vol] 250 10*3/uL 150-450 [facility] Serum or plasma albumin amalia urement (mass/volume)Ordered By: Sagar Horton on 08-13-2023 Albumin [Mass/Vol] 3.2 g/dL 3.2-5.0 [facility] Serum or plasma albumin/glob ulin mass ratioOrdered By: Sagar Horton on 08-13-2023 Albumin/Globulin [Mass ratio] 1.0 {ratio} 0.9-2.4 [facility] Serum or plasma calcium amalia urement (mass/volume)Ordered By: Sagar Horton on 08-13-2023 Calcium [Mass/Vol] 9.0 mg/dL 8.5-10.1 [facility] Serum or plasma creatinine m easurement (mass/volume)Ordered By: Sagar Horton on 08-13-2023 Creatinine [Mass/Vol] 0.97 mg/dL 0.55-1.02 [facility] Comment on above: The validity of the calculated GFR & GFRAA in patients over 70 years has not been determined. Clinical correlation is essential. Serum or plasma urea nitroge n measurement (mass/volume)Ordered By: Sagar Horton on 08-13-2023 Urea nitrogen [Mass/Vol] 22 mg/dL 7-18 [facility] Thin prep Papanicolaou smear with manual screeningOrdered By: Sagar Horton 08-13-2023 Thin prep Papanicolaou smear with manual screening 14 U/L 15-37 [facility] Thin prep Papanicolaou smear with manual screening 6 5-15 [facility] Gram stain for investigation of transfusion reactionOrdered By: Sagar Horton on 07-28-2023 Microscopic observation Gram stain Nom (Unsp spec) [facility] Microscopic observation Gram stain Nom (Unsp spec) [facility] No Panel InformationOrdered By: Sagar Horton on 07-28-2023 Methicillin-Resist S.aureus DNA PCR Negative Negative [facility] Routine wound cultureOrdered By: Sagar Horton on 07-28-2023 Bacteria identified Cx Nom (Wound) No growth aerobically. [facility] Bacteria identified Cx Nom (Wound) No growth aerobically. [facility] Staphylococcus aureus DNA de tection by probe and target amplification methodOrdered By: Sagar Horton on 07-28-2023 S. aureus DNA ANDREA+probe Ql (Unsp spec) Negative Negative [facility] Comment on above: Previous reported re sult: POSITIVE Edited by: BREA on 07/28/23:1425 AMENDED REPORT 07/28/23 1425 SA RESULT previously reported as: POSITIVE H Fungus cultureOrdered By: Jack Horton on 07-21-2023 Fungus identified Cx Nom (Unsp spec) [facility] Gram stain for investigation of transfusion reactionOrdered By: Sagar Horton on 07-21-2023 Microscopic observation Gram stain Nom (Unsp spec) [facility] Microscopic observation Gram stain Nom (Unsp spec) [facility] No Panel InformationOrdered By: Sagar Horton on 07-21-2023 Methicillin-Resist S.aureus DNA PCR Negative Negative [facility] Routine wound cultureOrdered By: Sagar Horton on 07-21-2023 Bacteria identified Cx Nom (Wound) No growth aerobically. [facility] Bacteria identified Cx Nom (Wound) No growth aerobically. [facility] Staphylococcus aureus DNA de tection by probe and target amplification methodOrdered By: Sagar Horton on 07-21-2023 S. aureus DNA ANDREA+probe Ql (Unsp spec) Negative Negative [facility] Absolute lymphocyte countOrd ered By: Adele Rockwell on 06-20-2023 Lymphocytes Auto (Unsp spec) [#/Vol] 2.21 10*3/uL 0.83-4.51 [facility] Basophil percentageOrdered B y: Adele Rockwell on 06-20-2023 Basophils/100 WBC (Bld) 0.8 % 0-1 [facility] Bilirubin [Mass/Vol] 0.50 mg/dL 0.20-1.00 [facility] Comment on above: For patients on eltr ombopag therapy, use of Dimension Gary TBIL is not recommended. Chloride [Moles/Vol] 109 mmol/L 98-107 [facility] Eosinophils/100 WBC (Bld) 1.9 % 0-5 [facility] Glucose [Mass/Vol] 94 mg/dL 74-106 [facility] Neutrophils (Bld) [#/Vol] 4.4 10*3/uL 2.0-7.7 [facility] Neutrophils/100 WBC (Bld) 60.2 % 47-70 [facility] Potassium [Moles/Vol] 4.1 mmol/L 3.5-5.1 [facility] Protein [Mass/Vol] 6.6 g/dL 6.4-8.2 [facility] Sodium [Moles/Vol] 143 mmol/L 136-145 [facility] WBC (Bld) [#/Vol] 7.4 10*3/uL 4.4-11.0 [facility] Blood erythrocytes count (nu mber/volume)Ordered By: Adele Rockwell on 06-20-2023 RBC (Bld) [#/Vol] 4.40 10*6/uL 4.2-5.4 [facility] Blood hemoglobin measurement (mass/volume)Ordered By: Adele Rockwell on 06-20-2023 Hemoglobin (Bld) [Mass/Vol] 13.8 g/dL 12.0-15.0 [facility] Blood lymphocytes/100 leukoc ytesOrdered By: Adele Rockwell on 06-20-2023 Lymphocytes/100 WBC (Bld) 30.0 % 19-41 [facility] Blood monocytes/100 leukocyt esOrdered By: Adele Rockwell on 06-20-2023 Monocytes/100 WBC (Bld) 6.7 % 0-10 [facility] Blood platelet mean volumeOr dered By: Adele Rockwell on 06-20-2023 Platelet mean volume (Bld) [Entitic vol] 11.6 fL 6.2-12.0 [facility] Determination of erythrocyte mean corpuscular volume (MCV)Ordered By: Adele Rockwell on 06-20-2023 MCV (RBC) [Entitic vol] 98.9 fL 81-99 [facility] Hematocrit Auto (Bld) [Volum e fraction]Ordered By: Adele Rockwell on 06-20-2023 Hematocrit (Bld) [Volume fraction] 43.5 % 37-47 [facility] Laboratory - Chemistry and C hemistry - challengeOrdered By: Adele Rockwell on 06-20-2023 ALP [Catalytic activity/Vol] 83 U/L 45-117 [facility] ALT [Catalytic activity/Vol] 29 U/L 13-56 [facility] CO2 [Moles/Vol] 29.0 mmol/L 21.0-32.0 [facility] Globulin (S) [Mass/Vol] 2.9 g/dL 2.2-4.2 [facility] Urea nitrogen/Creatinine [Mass ratio] 19.2 mg/mg 10-20 [facility] Laboratory - Hematology and Cell countsOrdered By: Adele Rockwell on 06-20-2023 Erythrocyte distribution width (RBC) [Entitic vol] 54.3 fL 35.1-43.9 [facility] Erythrocyte distribution width (RBC) [Ratio] 14.7 % 11.6-14.6 [facility] Immature granulocytes/100 WBC (Bld) 0.400 % 0.0-0.9 [facility] Comment on above: IG% - Immature Granu locytes (promyelocytes, myelocytes and metamyelocytes) > 1% indicates that a LEFT SHIFT is Present. MCH (RBC) [Entitic mass] 31.4 pg 27.0-32.0 [facility] Nucleated RBC/100 WBC (Bld) [Ratio] 0 % 0-5 [facility] MCHC Auto (RBC) [Mass/Vol]Or dered By: Adele Rockwell on 06-20-2023 MCHC (RBC) [Mass/Vol] 31.7 g/dL 32-36 [facility] No Panel InformationOrdered By: Adele Rockwell on 06-20-2023 Estimated GFR (MDRD) Amer 64 mL/min >60 [facility] Comment on above: GFR Calc Estimated GFR (MDRD) Non-Af Amer 53 mL/min >60 [facility] Comment on above: Non- GFR Calc Platelets bldOrdered By: Hardeep Rockwell on 06-20-2023 Platelets (Bld) [#/Vol] 214 10*3/uL 150-450 [facility] Serum or plasma albumin amalia urement (mass/volume)Ordered By: Adele Rockwell on 06-20-2023 Albumin [Mass/Vol] 3.7 g/dL 3.2-5.0 [facility] Serum or plasma albumin/glob ulin mass ratioOrdered By: Adele Rockwell on 06-20-2023 Albumin/Globulin [Mass ratio] 1.3 {ratio} 0.9-2.4 [facility] Serum or plasma calcium amalia urement (mass/volume)Ordered By: Adele Rockwell on 06-20-2023 Calcium [Mass/Vol] 9.1 mg/dL 8.5-10.1 [facility] Serum or plasma creatinine m easurement (mass/volume)Ordered By: Adele Rockwell on 06-20-2023 Creatinine [Mass/Vol] 1.04 mg/dL 0.55-1.02 [facility] Comment on above: The validity of the calculated GFR & GFRAA in patients over 70 years has not been determined. Clinical correlation is essential. Serum or plasma urea nitroge n measurement (mass/volume)Ordered By: Adele Rockwell on 06-20-2023 Urea nitrogen [Mass/Vol] 20 mg/dL 7-18 [facility] Thin prep Papanicolaou smear with manual screeningOrdered By: Adele Rockwell on 06-20-2023 Thin prep Papanicolaou smear with manual screening 25 U/L 15-37 [facility] Thin prep Papanicolaou smear with manual screening 5 5-15 [facility] Absolute lymphocyte countOrd ered By: Dr. Rockwell on 03-27-2023 Lymphocytes Auto (Unsp spec) [#/Vol] 1.70 10*3/uL 0.83-4.51 [facility] Basophil percentageOrdered B y: Dr. Rockwell on 03-27-2023 Basophils/100 WBC (Bld) 1.0 % 0-1 [facility] Bilirubin [Mass/Vol] 0.50 mg/dL 0.20-1.00 [facility] Comment on above: For patients on eltr ombopag therapy, use of Dimension Gary TBIL is not recommended. Chloride [Moles/Vol] 108 mmol/L 98-107 [facility] Eosinophils/100 WBC (Bld) 7.9 % 0-5 [facility] Glucose [Mass/Vol] 95 mg/dL 74-106 [facility] Neutrophils (Bld) [#/Vol] 3.2 10*3/uL 2.0-7.7 [facility] Neutrophils/100 WBC (Bld) 51.6 % 47-70 [facility] Potassium [Moles/Vol] 4.1 mmol/L 3.5-5.1 [facility] Protein [Mass/Vol] 6.3 g/dL 6.4-8.2 [facility] Sodium [Moles/Vol] 140 mmol/L 136-145 [facility] WBC (Bld) [#/Vol] 6.1 10*3/uL 4.4-11.0 [facility] Blood erythrocytes count (nu mber/volume)Ordered By: Dr. Rockwell on 03-27-2023 RBC (Bld) [#/Vol] 4.20 10*6/uL 4.2-5.4 [facility] Blood hemoglobin measurement (mass/volume)Ordered By: Dr. Rockwell on 03-27-2023 Hemoglobin (Bld) [Mass/Vol] 13.1 g/dL 12.0-15.0 [facility] Blood lymphocytes/100 leukoc ytesOrdered By: Dr. Rockwell on 03-27-2023 Lymphocytes/100 WBC (Bld) 27.9 % 19-41 [facility] Blood monocytes/100 leukocyt esOrdered By: Dr. Rockwell on 03-27-2023 Monocytes/100 WBC (Bld) 11.3 % 0-10 [facility] Blood platelet mean volumeOr dered By: Dr. Rockwell on 03-27-2023 Platelet mean volume (Bld) [Entitic vol] 11.7 fL 6.2-12.0 [facility] Determination of erythrocyte mean corpuscular volume (MCV)Ordered By: Dr. Rockwell on 03-27-2023 MCV (RBC) [Entitic vol] 98.3 fL 81-99 [facility] Hematocrit Auto (Bld) [Volum e fraction]Ordered By: Dr. Rockwell on 03-27-2023 Hematocrit (Bld) [Volume fraction] 41.3 % 37-47 [facility] Laboratory - Chemistry and C hemistry - challengeOrdered By: Dr. oRckwell on 03-27-2023 ALP [Catalytic activity/Vol] 75 U/L 45-117 [facility] ALT [Catalytic activity/Vol] 21 U/L 13-56 [facility] CO2 [Moles/Vol] 27.0 mmol/L 21.0-32.0 [facility] Globulin (S) [Mass/Vol] 2.9 g/dL 2.2-4.2 [facility] Urea nitrogen/Creatinine [Mass ratio] 14.8 mg/mg 10-20 [facility] Laboratory - Hematology and Cell countsOrdered By: Dr. Rockwell on 03-27-2023 Erythrocyte distribution width (RBC) [Entitic vol] 48.9 fL 35.1-43.9 [facility] Erythrocyte distribution width (RBC) [Ratio] 13.4 % 11.6-14.6 [facility] Immature granulocytes/100 WBC (Bld) 0.300 % 0.0-0.9 [facility] Comment on above: IG% - Immature Granu locytes (promyelocytes, myelocytes and metamyelocytes) > 1% indicates that a LEFT SHIFT is Present. MCH (RBC) [Entitic mass] 31.2 pg 27.0-32.0 [facility] Nucleated RBC/100 WBC (Bld) [Ratio] 0 % 0-5 [facility] MCHC Auto (RBC) [Mass/Vol]Or dered By: Dr. Rockwell on 03-27-2023 MCHC (RBC) [Mass/Vol] 31.7 g/dL 32-36 [facility] No Panel InformationOrdered By: Dr. Rockwell on 03-27-2023 Estimated GFR (MDRD) Amer 79 mL/min >60 [facility] Comment on above: GFR Calc Estimated GFR (MDRD) Non-Af Amer 65 mL/min >60 [facility] Comment on above: Non- GFR Calc Platelets bldOrdered By: Dr. Rockwell on 03-27-2023 Platelets (Bld) [#/Vol] 185 10*3/uL 150-450 [facility] Serum or plasma albumin amalia urement (mass/volume)Ordered By: Dr. Rockwell on 03-27-2023 Albumin [Mass/Vol] 3.4 g/dL 3.2-5.0 [facility] Serum or plasma albumin/glob ulin mass ratioOrdered By: Dr. Rockwell on 03-27-2023 Albumin/Globulin [Mass ratio] 1.2 {ratio} 0.9-2.4 [facility] Serum or plasma calcium amalia urement (mass/volume)Ordered By: Dr. Rockwell on 03-27-2023 Calcium [Mass/Vol] 8.6 mg/dL 8.5-10.1 [facility] Serum or plasma creatinine m easurement (mass/volume)Ordered By: Dr. Rockwell on 03-27-2023 Creatinine [Mass/Vol] 0.88 mg/dL 0.55-1.02 [facility] Comment on above: The validity of the calculated GFR & GFRAA in patients over 70 years has not been determined. Clinical correlation is essential. Serum or plasma urea nitroge n measurement (mass/volume)Ordered By: Dr. Rockwell on 03-27-2023 Urea nitrogen [Mass/Vol] 13 mg/dL 7-18 [facility] Thin prep Papanicolaou smear with manual screeningOrdered By: Dr. Rockwell on 03-27-2023 Thin prep Papanicolaou smear with manual screening 19 U/L 15-37 [facility] Thin prep Papanicolaou smear with manual screening 5 5-15 [facility] Absolute lymphocyte countOrd ered By: Dr. Horton on 02-13-2023 Lymphocytes Auto (Unsp spec) [#/Vol] 2.26 10*3/uL 0.83-4.51 [facility] Basophil percentageOrdered B y: Dr. Horton on 02-13-2023 Basophils/100 WBC (Bld) 0.8 % 0-1 [facility] Bilirubin [Mass/Vol] 0.50 mg/dL 0.20-1.00 [facility] Comment on above: For patients on eltr ombopag therapy, use of Dimension Gary TBIL is not recommended. Chloride [Moles/Vol] 109 mmol/L 98-107 [facility] Eosinophils/100 WBC (Bld) 3.6 % 0-5 [facility] Glucose [Mass/Vol] 91 mg/dL 74-106 [facility] Neutrophils (Bld) [#/Vol] 4.4 10*3/uL 2.0-7.7 [facility] Neutrophils/100 WBC (Bld) 56.5 % 47-70 [facility] Potassium [Moles/Vol] 4.2 mmol/L 3.5-5.1 [facility] Protein [Mass/Vol] 6.6 g/dL 6.4-8.2 [facility] Sodium [Moles/Vol] 140 mmol/L 136-145 [facility] WBC (Bld) [#/Vol] 7.7 10*3/uL 4.4-11.0 [facility] Blood erythrocytes count (nu mber/volume)Ordered By: Dr. Horton on 02-13-2023 RBC (Bld) [#/Vol] 4.37 10*6/uL 4.2-5.4 [facility] Blood hemoglobin measurement (mass/volume)Ordered By: Dr. Horton on 02-13-2023 Hemoglobin (Bld) [Mass/Vol] 13.7 g/dL 12.0-15.0 [facility] [facility] Blood lymphocytes/100 leukoc ytesOrdered By: Dr. Horton on 02-13-2023 Lymphocytes/100 WBC (Bld) 29.2 % 19-41 [facility] Blood monocytes/100 leukocyt esOrdered By: Dr. Horton on 02-13-2023 Monocytes/100 WBC (Bld) 9.6 % 0-10 [facility] Blood platelet mean volumeOr dered By: Dr. Horton on 02-13-2023 Platelet mean volume (Bld) [Entitic vol] 12.7 fL 6.2-12.0 [facility] Determination of erythrocyte mean corpuscular volume (MCV)Ordered By: Dr. Horton on 02-13-2023 MCV (RBC) [Entitic vol] 97.9 fL 81-99 [facility] Hematocrit Auto (Bld) [Volum e fraction]Ordered By: Dr. Horton on 02-13-2023 Hematocrit (Bld) [Volume fraction] 42.8 % 37-47 [facility] Laboratory - Chemistry and C hemistry - challengeOrdered By: Dr. Horton on 02-13-2023 ALP [Catalytic activity/Vol] 80 U/L 45-117 [facility] ALT [Catalytic activity/Vol] 29 U/L 13-56 [facility] CO2 [Moles/Vol] 27.0 mmol/L 21.0-32.0 [facility] Globulin (S) [Mass/Vol] 3.0 g/dL 2.2-4.2 [facility] Urea nitrogen/Creatinine [Mass ratio] 15.7 mg/mg 10-20 [facility] Laboratory - Hematology and Cell countsOrdered By: Dr. Horton on 02-13-2023 Erythrocyte distribution width (RBC) [Entitic vol] 49.1 fL 35.1-43.9 [facility] Erythrocyte distribution width (RBC) [Ratio] 13.5 % 11.6-14.6 [facility] Immature granulocytes/100 WBC (Bld) 0.300 % 0.0-0.9 [facility] Comment on above: IG% - Immature Granu locytes (promyelocytes, myelocytes and metamyelocytes) > 1% indicates that a LEFT SHIFT is Present. MCH (RBC) [Entitic mass] 31.4 pg 27.0-32.0 [facility] Nucleated RBC/100 WBC (Bld) [Ratio] 0 % 0-5 [facility] MCHC Auto (RBC) [Mass/Vol]Or dered By: Dr. Horton on 02-13-2023 MCHC (RBC) [Mass/Vol] 32.0 g/dL 32-36 [facility] No Panel InformationOrdered By: Dr. Horton on 02-13-2023 Estimated GFR (MDRD) Amer 77 mL/min >60 [facility] Comment on above: GFR Calc Estimated GFR (MDRD) Non-Af Amer 64 mL/min >60 [facility] Comment on above: Non- GFR Calc Thyroid Stimulating Hormone (TSH) 2.33 uIU/mL 0.358-3.74 [facility] Vitamin D 25-Hydroxy 38.3 ng/mL [facility] Comment on above: Vitamin D 25(OH) Sta tus Range Deficiency <20 ng/mL (50nmol/L) Insufficiency 20 - 30 ng/mL (50 - 75 nmol/L) Sufficiency 30 - 100 ng/mL (75 - 250 nmol/L) Toxicity >100 ng/mL (>250 nmol/L) Platelets bldOrdered By: Dr. Horton on 02-13-2023 Platelets (Bld) [#/Vol] 192 10*3/uL 150-450 [facility] Serum or plasma albumin amalia urement (mass/volume)Ordered By: Dr. Horton on 02-13-2023 Albumin [Mass/Vol] 3.6 g/dL 3.2-5.0 [facility] Serum or plasma albumin/glob ulin mass ratioOrdered By: Dr. Horton on 02-13-2023 Albumin/Globulin [Mass ratio] 1.2 {ratio} 0.9-2.4 [facility] Serum or plasma calcium amalia urement (mass/volume)Ordered By: Dr. Horton on 02-13-2023 Calcium [Mass/Vol] 9.2 mg/dL 8.5-10.1 [facility] Serum or plasma creatinine m easurement (mass/volume)Ordered By: Dr. Horton on 02-13-2023 Creatinine [Mass/Vol] 0.89 mg/dL 0.55-1.02 [facility] Comment on above: The validity of the calculated GFR & GFRAA in patients over 70 years has not been determined. Clinical correlation is essential. Serum or plasma urea nitroge n measurement (mass/volume)Ordered By: Dr. Horton on 02-13-2023 Urea nitrogen [Mass/Vol] 14 mg/dL 7-18 [facility] Thin prep Papanicolaou smear with manual screeningOrdered By: Dr. Horton on 02-13-2023 Thin prep Papanicolaou smear with manual screening 21 U/L 15-37 [facility] Thin prep Papanicolaou smear with manual screening 4 5-15 [facility] Absolute lymphocyte countOrd ered By: Dr. Rockwell on 10-22-2022 Lymphocytes Auto (Unsp spec) [#/Vol] 2.60 10*3/uL 0.83-4.51 [facility] Basophil percentageOrdered B y: Dr. Rockwell on 10-22-2022 Basophils/100 WBC (Bld) 0.7 % 0-1 [facility] Bilirubin [Mass/Vol] 0.50 mg/dL 0.20-1.00 [facility] Comment on above: For patients on eltr ombopag therapy, use of Dimension Gary TBIL is not recommended. Chloride [Moles/Vol] 105 mmol/L 98-107 [facility] Eosinophils/100 WBC (Bld) 2.0 % 0-5 [facility] Glucose [Mass/Vol] 82 mg/dL 74-106 [facility] Neutrophils (Bld) [#/Vol] 4.7 10*3/uL 2.0-7.7 [facility] Neutrophils/100 WBC (Bld) 57.4 % 47-70 [facility] Potassium [Moles/Vol] 4.4 mmol/L 3.5-5.1 [facility] Protein [Mass/Vol] 6.4 g/dL 6.4-8.2 [facility] Sodium [Moles/Vol] 141 mmol/L 136-145 [facility] WBC (Bld) [#/Vol] 8.2 10*3/uL 4.4-11.0 [facility] Blood erythrocytes count (nu mber/volume)Ordered By: Dr. Rockwell on 10-22-2022 RBC (Bld) [#/Vol] 4.19 10*6/uL 4.2-5.4 [facility] Blood hemoglobin measurement (mass/volume)Ordered By: Dr. Rockwell on 10-22-2022 Hemoglobin (Bld) [Mass/Vol] 13.0 g/dL 12.0-15.0 [facility] Blood lymphocytes/100 leukoc ytesOrdered By: Dr. Rockwell on 10-22-2022 Lymphocytes/100 WBC (Bld) 31.8 % 19-41 [facility] Blood monocytes/100 leukocyt esOrdered By: Dr. Rockwell on 10-22-2022 Monocytes/100 WBC (Bld) 8.0 % 0-10 [facility] Blood platelet mean volumeOr dered By: Dr. Rockwell on 10-22-2022 Platelet mean volume (Bld) [Entitic vol] 12.1 fL 6.2-12.0 [facility] Determination of erythrocyte mean corpuscular volume (MCV)Ordered By: Dr. Rockwell on 10-22-2022 MCV (RBC) [Entitic vol] 96.4 fL 81-99 [facility] Hematocrit Auto (Bld) [Volum e fraction]Ordered By: Dr. Rockwell on 10-22-2022 Hematocrit (Bld) [Volume fraction] 40.4 % 37-47 [facility] Laboratory - Chemistry and C hemistry - challengeOrdered By: Dr. Rockwell on 10-22-2022 ALP [Catalytic activity/Vol] 78 U/L 45-117 [facility] ALT [Catalytic activity/Vol] 38 U/L 13-56 [facility] CO2 [Moles/Vol] 27.0 mmol/L 21.0-32.0 [facility] Globulin (S) [Mass/Vol] 2.7 g/dL 2.2-4.2 [facility] Urea nitrogen/Creatinine [Mass ratio] 19.6 mg/mg 10-20 [facility] Laboratory - Hematology and Cell countsOrdered By: Dr. Rockwell on 10-22-2022 Erythrocyte distribution width (RBC) [Entitic vol] 47.9 fL 35.1-43.9 [facility] Erythrocyte distribution width (RBC) [Ratio] 13.5 % 11.6-14.6 [facility] Immature granulocytes/100 WBC (Bld) 0.100 % 0.0-0.9 [facility] Comment on above: IG% - Immature Granu locytes (promyelocytes, myelocytes and metamyelocytes) > 1% indicates that a LEFT SHIFT is Present. MCH (RBC) [Entitic mass] 31.0 pg 27.0-32.0 [facility] Nucleated RBC/100 WBC (Bld) [Ratio] 0.2 % 0-5 [facility] MCHC Auto (RBC) [Mass/Vol]Or dered By: Dr. Rockwell on 10-22-2022 MCHC (RBC) [Mass/Vol] 32.2 g/dL 32-36 [facility] No Panel InformationOrdered By: Dr. Rockwell on 10-22-2022 Estimated GFR (MDRD) Amer 62 mL/min >60 [facility] Comment on above: GFR Calc Estimated GFR (MDRD) Non-Af Amer 52 mL/min >60 [facility] Comment on above: Non- GFR Calc Platelets bldOrdered By: Dr. Rockwell on 10-22-2022 Platelets (Bld) [#/Vol] 199 10*3/uL 150-450 [facility] Serum or plasma albumin amalia urement (mass/volume)Ordered By: Dr. Rockwell on 10-22-2022 Albumin [Mass/Vol] 3.7 g/dL 3.2-5.0 [facility] Serum or plasma albumin/glob ulin mass ratioOrdered By: Dr. Rockwell on 10-22-2022 Albumin/Globulin [Mass ratio] 1.4 {ratio} 0.9-2.4 [facility] Serum or plasma calcium amalia urement (mass/volume)Ordered By: Dr. Rockwell on 10-22-2022 Calcium [Mass/Vol] 9.8 mg/dL 8.5-10.1 [facility] Serum or plasma creatinine m easurement (mass/volume)Ordered By: Dr. Rockwell on 10-22-2022 Creatinine [Mass/Vol] 1.07 mg/dL 0.55-1.02 [facility] Comment on above: The validity of the calculated GFR & GFRAA in patients over 70 years has not been determined. Clinical correlation is essential. Serum or plasma urea nitroge n measurement (mass/volume)Ordered By: Dr. Rockwell on 10-22-2022 Urea nitrogen [Mass/Vol] 21 mg/dL 7-18 [facility] Thin prep Papanicolaou smear with manual screeningOrdered By: Dr. Rockwell on 10-22-2022 Thin prep Papanicolaou smear with manual screening 19 U/L 15-37 [facility] Thin prep Papanicolaou smear with manual screening 9 5-15 [facility] Absolute lymphocyte countOrd ered By: Dr. Horton on 08-08-2022 Lymphocytes Auto (Unsp spec) [#/Vol] 1.23 10*3/uL 0.83-4.51 [facility] Basophil percentageOrdered B y: Dr. Horton on 08-08-2022 Basophils/100 WBC (Bld) 0.7 % 0-1 [facility] Bilirubin [Mass/Vol] 0.80 mg/dL 0.20-1.00 [facility] Comment on above: For patients on eltr ombopag therapy, use of Dimension Gary TBIL is not recommended. Chloride [Moles/Vol] 103 mmol/L 98-107 [facility] Eosinophils/100 WBC (Bld) 6.4 % 0-5 [facility] Glucose [Mass/Vol] 89 mg/dL 74-106 [facility] Neutrophils (Bld) [#/Vol] 5.0 10*3/uL 2.0-7.7 [facility] Neutrophils/100 WBC (Bld) 65.2 % 47-70 [facility] Potassium [Moles/Vol] 4.1 mmol/L 3.5-5.1 [facility] Protein [Mass/Vol] 7.3 g/dL 6.4-8.2 [facility] Sodium [Moles/Vol] 137 mmol/L 136-145 [facility] WBC (Bld) [#/Vol] 7.6 10*3/uL 4.4-11.0 [facility] Blood erythrocytes count (nu mber/volume)Ordered By: Dr. Horton on 08-08-2022 RBC (Bld) [#/Vol] 4.17 10*6/uL 4.2-5.4 [facility] Blood hemoglobin measurement (mass/volume)Ordered By: Dr. Horton on 08-08-2022 Hemoglobin (Bld) [Mass/Vol] 13.3 g/dL 12.0-15.0 [facility] Blood lymphocytes/100 leukoc ytesOrdered By: Dr. Horton on 08-08-2022 Lymphocytes/100 WBC (Bld) 16.2 % 19-41 [facility] Blood monocytes/100 leukocyt esOrdered By: Dr. Horton on 08-08-2022 Monocytes/100 WBC (Bld) 11.2 % 0-10 [facility] Blood platelet mean volumeOr dered By: Dr. Horton on 08-08-2022 Platelet mean volume (Bld) [Entitic vol] 11.8 fL 6.2-12.0 [facility] Determination of erythrocyte mean corpuscular volume (MCV)Ordered By: Dr. Horton on 08-08-2022 MCV (RBC) [Entitic vol] 96.4 fL 81-99 [facility] Hematocrit Auto (Bld) [Volum e fraction]Ordered By: Dr. Horton on 08-08-2022 Hematocrit (Bld) [Volume fraction] 40.2 % 37-47 [facility] Laboratory - Chemistry and C hemistry - challengeOrdered By: Dr. Horton on 08-08-2022 ALP [Catalytic activity/Vol] 87 U/L 45-117 [facility] ALT [Catalytic activity/Vol] 23 U/L 13-56 [facility] CO2 [Moles/Vol] 26.0 mmol/L 21.0-32.0 [facility] Globulin (S) [Mass/Vol] 3.7 g/dL 2.2-4.2 [facility] Urea nitrogen/Creatinine [Mass ratio] 15.2 mg/mg 10-20 [facility] Laboratory - Hematology and Cell countsOrdered By: Dr. Horton on 08-08-2022 Erythrocyte distribution width (RBC) [Entitic vol] 50.6 fL 35.1-43.9 [facility] Erythrocyte distribution width (RBC) [Ratio] 14.4 % 11.6-14.6 [facility] Immature granulocytes/100 WBC (Bld) 0.300 % 0.0-0.9 [facility] Comment on above: IG% - Immature Granu locytes (promyelocytes, myelocytes and metamyelocytes) > 1% indicates that a LEFT SHIFT is Present. MCH (RBC) [Entitic mass] 31.9 pg 27.0-32.0 [facility] Nucleated RBC/100 WBC (Bld) [Ratio] 0 % 0-5 [facility] MCHC Auto (RBC) [Mass/Vol]Or dered By: Dr. Horton on 08-08-2022 MCHC (RBC) [Mass/Vol] 33.1 g/dL 32-36 [facility] No Panel InformationOrdered By: Dr. Horton on 08-08-2022 Estimated GFR (MDRD) Amer 68 mL/min >60 [facility] Comment on above: GFR Calc Estimated GFR (MDRD) Non-Af Amer 56 mL/min >60 [facility] Comment on above: Non- GFR Calc Thyroid Stimulating Hormone (TSH) 1.85 uIU/mL 0.358-3.74 [facility] Vitamin D 25-Hydroxy 38.7 ng/mL [facility] Comment on above: Vitamin D 25(OH) Sta tus Range Deficiency <20 ng/mL (50nmol/L) Insufficiency 20 - 30 ng/mL (50 - 75 nmol/L) Sufficiency 30 - 100 ng/mL (75 - 250 nmol/L) Toxicity >100 ng/mL (>250 nmol/L) Platelets bldOrdered By: Dr. Horton on 08-08-2022 Platelets (Bld) [#/Vol] 207 10*3/uL 150-450 [facility] Serum or plasma albumin amalai urement (mass/volume)Ordered By: Dr. Horton on 08-08-2022 Albumin [Mass/Vol] 3.6 g/dL 3.2-5.0 [facility] Serum or plasma albumin/glob ulin mass ratioOrdered By: Dr. Horton on 08-08-2022 Albumin/Globulin [Mass ratio] 1.0 {ratio} 0.9-2.4 [facility] Serum or plasma calcium amalia urement (mass/volume)Ordered By: Dr. Horton on 08-08-2022 Calcium [Mass/Vol] 9.3 mg/dL 8.5-10.1 [facility] Serum or plasma creatinine m easurement (mass/volume)Ordered By: Dr. Horton on 08-08-2022 Creatinine [Mass/Vol] 0.99 mg/dL 0.55-1.02 [facility] Comment on above: The validity of the calculated GFR & GFRAA in patients over 70 years has not been determined. Clinical correlation is essential. Serum or plasma urea nitroge n measurement (mass/volume)Ordered By: Dr. Horton on 08-08-2022 Urea nitrogen [Mass/Vol] 15 mg/dL 7-18 [facility] Thin prep Papanicolaou smear with manual screeningOrdered By: Dr. Horton on 08-08-2022 Thin prep Papanicolaou smear with manual screening 18 U/L 15-37 [facility] Thin prep Papanicolaou smear with manual screening 8 5-15 [facility] Absolute lymphocyte counton 04-11-2022 Lymphocytes Auto (Unsp spec) [#/Vol] 2.35 10*3/uL 0.83-4.51 [facility] Work Phone: Basophil percentageon 2021 Basophils/100 WBC (Bld) 0.9 % 0-1 [facility] Work Phone: Bilirubin [Mass/Vol] 0.30 mg/dL 0.20-1.00 [facility] Work Phone: Comment on above: For patients on eltr ombopag therapy, use of Dimension Gary TBIL is not recommended. Chloride [Moles/Vol] 108 mmol/L 98-107 [facility] Work Phone: Eosinophils/100 WBC (Bld) 2.0 % 0-5 [facility] Work Phone: Glucose [Mass/Vol] 96 mg/dL 74-106 [facility] Work Phone: Neutrophils (Bld) [#/Vol] 3.8 10*3/uL 2.0-7.7 [facility] Work Phone: Neutrophils/100 WBC (Bld) 54.1 % 47-70 [facility] Work Phone: Potassium [Moles/Vol] 4.3 mmol/L 3.5-5.1 [facility] Work Phone: Protein [Mass/Vol] 6.3 g/dL 6.4-8.2 [facility] Work Phone: Sodium [Moles/Vol] 142 mmol/L 136-145 [facility] Work Phone: WBC (Bld) [#/Vol] 7.1 10*3/uL 4.4-11.0 [facility] Work Phone: Blood erythrocytes count (nu mber/volume)on 04-11-2022 RBC (Bld) [#/Vol] 4.12 10*6/uL 4.2-5.4 [facility] Work Phone: Blood hemoglobin measurement (mass/volume)on 04-11-2022 Hemoglobin (Bld) [Mass/Vol] 13.1 g/dL 12.0-15.0 [facility] Work Phone: Blood lymphocytes/100 leukoc yteson 04-11-2022 Lymphocytes/100 WBC (Bld) 33.3 % 19-41 [facility] Work Phone: Blood monocytes/100 leukocyt eson 04-11-2022 Monocytes/100 WBC (Bld) 9.6 % 0-10 [facility] Work Phone: Blood platelet mean volumeon 04-11-2022 Platelet mean volume (Bld) [Entitic vol] 11.9 fL 6.2-12.0 [facility] Work Phone: Determination of erythrocyte mean corpuscular volume (MCV)on 04-11-2022 MCV (RBC) [Entitic vol] 99.0 fL 81-99 [facility] Work Phone: Hematocrit Auto (Bld) [Volum e fraction]on 04-11-2022 Hematocrit (Bld) [Volume fraction] 40.8 % 37-47 [facility] Work Phone: Laboratory - Chemistry and C hemistry - challengeon 04-11-2022 ALP [Catalytic activity/Vol] 60 U/L 45-117 [facility] Work Phone: ALT [Catalytic activity/Vol] 21 U/L 13-56 [facility] Work Phone: CO2 [Moles/Vol] 29.0 mmol/L 21.0-32.0 [facility] Work Phone: Globulin (S) [Mass/Vol] 2.9 g/dL 2.2-4.2 [facility] Work Phone: Urea nitrogen/Creatinine [Mass ratio] 12.7 mg/mg 10-20 [facility] Work Phone: Laboratory - Hematology and Cell countson 04-11-2022 Erythrocyte distribution width (RBC) [Entitic vol] 49.8 fL 35.1-43.9 [facility] Work Phone: Erythrocyte distribution width (RBC) [Ratio] 13.7 % 11.6-14.6 [facility] Work Phone: Immature granulocytes/100 WBC (Bld) 0.100 % 0.0-0.9 [facility] Work Phone: Comment on above: IG% - Immature Granu locytes (promyelocytes, myelocytes and metamyelocytes) > 1% indicates that a LEFT SHIFT is Present. MCH (RBC) [Entitic mass] 31.8 pg 27.0-32.0 [facility] Work Phone: Nucleated RBC/100 WBC (Bld) [Ratio] 0 % 0-5 [facility] Work Phone: MCHC Auto (RBC) [Mass/Vol]on 04-11-2022 MCHC (RBC) [Mass/Vol] 32.1 g/dL 32-36 [facility] Work Phone: No Panel Informationon 04-11 Estimated GFR (MDRD) Amer 61 mL/min >60 [facility] Work Phone: Comment on above: GFR Calc Estimated GFR (MDRD) Non-Af Amer 50 mL/min >60 [facility] Work Phone: Comment on above: Non- GFR Calc Platelets bldon 04-11-2022 Platelets (Bld) [#/Vol] 185 10*3/uL 150-450 [facility] Work Phone: Serum or plasma albumin amalia urement (mass/volume)on 04-11-2022 Albumin [Mass/Vol] 3.4 g/dL 3.2-5.0 [facility] Work Phone: Serum or plasma albumin/glob ulin mass ratioon 04-11-2022 Albumin/Globulin [Mass ratio] 1.2 {ratio} 0.9-2.4 [facility] Work Phone: [phone] Serum or plasma calcium amalia urement (mass/volume)on 04-11-2022 Calcium [Mass/Vol] 9.2 mg/dL 8.5-10.1 [facility] Work Phone: [phone] Serum or plasma creatinine m easurement (mass/volume)on 04-11-2022 Creatinine [Mass/Vol] 1.10 mg/dL 0.55-1.02 [facility] Work Phone: Comment on above: The validity of the calculated GFR & GFRAA in patients over 70 years has not been determined. Clinical correlation is essential. Serum or plasma urea nitroge n measurement (mass/volume)on 04-11-2022 Urea nitrogen [Mass/Vol] 14 mg/dL 7-18 [facility] Work Phone: Thin prep Papanicolaou smear with manual screeningon 04-11-2022 Thin prep Papanicolaou smear with manual screening 18 U/L 15-37 [facility] Work Phone: Thin prep Papanicolaou smear with manual screening 5 5-15 [facility] Work Phone: Absolute lymphocyte counton 02-07-2022 Lymphocytes Auto (Unsp spec) [#/Vol] 2.15 10*3/uL 0.83-4.51 [facility] Work Phone: Basophil percentageon 2021 Basophils/100 WBC (Bld) 1.1 % 0-1 [facility] Work Phone: Bilirubin [Mass/Vol] 0.50 mg/dL 0.20-1.00 [facility] Work Phone: Comment on above: For patients on eltr ombopag therapy, use of Dimension Gary TBIL is not recommended. Chloride [Moles/Vol] 107 mmol/L 98-107 [facility] Work Phone: Eosinophils/100 WBC (Bld) 17.5 % 0-5 [facility] Work Phone: Glucose [Mass/Vol] 85 mg/dL 74-106 [facility] Work Phone: Neutrophils (Bld) [#/Vol] 3.2 10*3/uL 2.0-7.7 [facility] Work Phone: Neutrophils/100 WBC (Bld) 43.0 % 47-70 [facility] Work Phone: Potassium [Moles/Vol] 4.4 mmol/L 3.5-5.1 [facility] Work Phone: Protein [Mass/Vol] 6.5 g/dL 6.4-8.2 [facility] Work Phone: [phone] Sodium [Moles/Vol] 138 mmol/L 136-145 [facility] Work Phone: [phone] WBC (Bld) [#/Vol] 7.4 10*3/uL 4.4-11.0 [facility] Work Phone: [phone] Blood erythrocytes count (nu mber/volume)on 02-07-2022 RBC (Bld) [#/Vol] 4.16 10*6/uL 4.2-5.4 [facility]: [phone] Blood hemoglobin measurement (mass/volume)on 02-07-2022 Hemoglobin (Bld) [Mass/Vol] 13.1 g/dL 12.0-15.0 [facility] Work Phone: [phone] Blood lymphocytes/100 leukoc yteson 02-07-2022 Lymphocytes/100 WBC (Bld) 29.1 % 19-41 [facility] Work Phone: [phone] Blood monocytes/100 leukocyt eson 02-07-2022 Monocytes/100 WBC (Bld) 9.2 % 0-10 [facility] Work Phone: [phone] Blood platelet mean volumeon 02-07-2022 Platelet mean volume (Bld) [Entitic vol] 12.7 fL 6.2-12.0 [facility] Work Phone: [phone] Determination of erythrocyte mean corpuscular volume (MCV)on 02-07-2022 MCV (RBC) [Entitic vol] 96.6 fL 81-99 [facility] Work Phone: [phone] Hematocrit Auto (Bld) [Volum e fraction]on 02-07-2022 Hematocrit (Bld) [Volume fraction] 40.2 % 37-47 [facility] Work Phone: Laboratory - Chemistry and C hemistry - challengeon 02-07-2022 ALP [Catalytic activity/Vol] 66 U/L 45-117 [facility] Work Phone: [phone] ALT [Catalytic activity/Vol] 24 U/L 13-56 [facility] Work Phone: [phone] CO2 [Moles/Vol] 26.0 mmol/L 21.0-32.0 [facility] Work Phone: [phone] Globulin (S) [Mass/Vol] 3.1 g/dL 2.2-4.2 [facility] Work Phone: [phone] Urea nitrogen/Creatinine [Mass ratio] 16.8 mg/mg 10-20 [facility] Work Phone: [phone] Laboratory - Hematology and Cell countson 02-07-2022 Erythrocyte distribution width (RBC) [Entitic vol] 49.2 fL 35.1-43.9 [facility] Work Phone: [phone] Erythrocyte distribution width (RBC) [Ratio] 13.7 % 11.6-14.6 [facility] Work Phone: [phone] Immature granulocytes/100 WBC (Bld) 0.100 % 0.0-0.9 [facility] Work Phone: [phone] Comment on above: IG% - Immature Granu locytes (promyelocytes, myelocytes and metamyelocytes) > 1% indicates that a LEFT SHIFT is Present. MCH (RBC) [Entitic mass] 31.5 pg 27.0-32.0 [facility] Work Phone: [phone] Nucleated RBC/100 WBC (Bld) [Ratio] 0 % 0-5 [facility] Work Phone: [phone] MCHC Auto (RBC) [Mass/Vol]on 02-07-2022 MCHC (RBC) [Mass/Vol] 32.6 g/dL 32-36 [facility] Work Phone: [phone] No Panel Informationon 02-07 Estimated GFR (MDRD) Amer 67 mL/min >60 [facility] Work Phone: [phone] Comment on above: GFR Calc Estimated GFR (MDRD) Non-Af Amer 55 mL/min >60 [facility] Work Phone: Comment on above: Non- GFR Calc Thyroid Stimulating Hormone (TSH) 1.03 uIU/mL 0.358-3.74 [facility] Work Phone: Vitamin D 25-Hydroxy 36.3 ng/mL [facility] Work Phone: Comment on above: Vitamin D 25(OH) Sta tus Range Deficiency <20 ng/mL (50nmol/L) Insufficiency 20 - 30 ng/mL (50 - 75 nmol/L) Sufficiency 30 - 100 ng/mL (75 - 250 nmol/L) Toxicity >100 ng/mL (>250 nmol/L) Platelets bldon 02-07-2022 Platelets (Bld) [#/Vol] 185 10*3/uL 150-450 [facility] Work Phone: Serum or plasma albumin amalia urement (mass/volume)on 02-07-2022 Albumin [Mass/Vol] 3.4 g/dL 3.2-5.0 [facility] Work Phone: [phone] Serum or plasma albumin/glob ulin mass ratioon 02-07-2022 Albumin/Globulin [Mass ratio] 1.1 {ratio} 0.9-2.4 [facility] Work Phone: Serum or plasma calcium amalia urement (mass/volume)on 02-07-2022 Calcium [Mass/Vol] 8.6 mg/dL 8.5-10.1 [facility] Work Phone: [phone] Serum or plasma creatinine m easurement (mass/volume)on 02-07-2022 Creatinine [Mass/Vol] 1.01 mg/dL 0.55-1.02 [facility] Work Phone: Comment on above: The validity of the calculated GFR & GFRAA in patients over 70 years has not been determined. Clinical correlation is essential. Serum or plasma urea nitroge n measurement (mass/volume)on 02-07-2022 Urea nitrogen [Mass/Vol] 17 mg/dL 7-18 [facility] Work Phone: Thin prep Papanicolaou smear with manual screeningon 02-07-2022 Thin prep Papanicolaou smear with manual screening 23 U/L 15-37 [facility] Work Phone: Thin prep Papanicolaou smear with manual screening 5 5-15 [facility] Work Phone: Basophil percentageon 2021 Creatinine [Mass/Vol] 1.1 mg/dL 0.55-1.02 [facility] Work Phone: Laboratory - Chemistry and C hemistry - challengeon 12-04-2021 GFR/1.73 sq M.predicted among non-blacks MDRD (S/P/Bld) [Vol rate/Area] 52.0000 mL/min/{1.73_m2} >60 [facility] Work Phone: Absolute lymphocyte counton 10-16-2021 Lymphocytes Auto (Unsp spec) [#/Vol] 2.23 10*3/uL 0.83-4.51 [facility] Work Phone: Basophil percentageon 2021 Basophils/100 WBC (Bld) 0.7 % 0-1 [facility] Work Phone: Bilirubin [Mass/Vol] 0.50 mg/dL 0.20-1.00 [facility] Work Phone: Comment on above: For patients on eltr ombopag therapy, use of Dimension Gary TBIL is not recommended. Chloride [Moles/Vol] 102 mmol/L 98-107 [facility] Work Phone: Eosinophils/100 WBC (Bld) 3.4 % 0-5 [facility] Work Phone: Glucose [Mass/Vol] 92 mg/dL 74-106 [facility] Work Phone: Comment on above: Please note revised GLUCOSE reference range effective 2017. Neutrophils (Bld) [#/Vol] 3.6 10*3/uL 2.0-7.7 [facility] Work Phone: Neutrophils/100 WBC (Bld) 54.6 % 47-70 [facility] Work Phone: Potassium [Moles/Vol] 4.0 mmol/L 3.5-5.1 [facility] Work Phone: Protein [Mass/Vol] 7.0 g/dL 6.4-8.2 [facility]: Sodium [Moles/Vol] 140 mmol/L 136-145 [facility] Work Phone: WBC (Bld) [#/Vol] 6.7 10*3/uL 4.4-11.0 [facility] Work Phone: Blood erythrocytes count (nu mber/volume)on 10-16-2021 RBC (Bld) [#/Vol] 4.26 10*6/uL 4.2-5.4 [facility]: Blood hemoglobin measurement (mass/volume)on 10-16-2021 Hemoglobin (Bld) [Mass/Vol] 13.6 g/dL 12.0-15.0 [facility] Work Phone: Blood lymphocytes/100 leukoc yteson 10-16-2021 Lymphocytes/100 WBC (Bld) 33.4 % 19-41 [facility] Work Phone: Blood monocytes/100 leukocyt eson 10-16-2021 Monocytes/100 WBC (Bld) 7.6 % 0-10 [facility] Work Phone: Blood platelet mean volumeon 10-16-2021 Platelet mean volume (Bld) [Entitic vol] 11.6 fL 6.2-12.0 [facility] Work Phone: Determination of erythrocyte mean corpuscular volume (MCV)on 10-16-2021 MCV (RBC) [Entitic vol] 98.6 fL 81-99 [facility] Work Phone: Hematocrit Auto (Bld) [Volum e fraction]on 10-16-2021 Hematocrit (Bld) [Volume fraction] 42.0 % 37-47 [facility] Work Phone: [phone] Laboratory - Chemistry and C hemistry - challengeon 10-16-2021 ALP [Catalytic activity/Vol] 73 U/L 45-117 [facility] Work Phone: [phone] ALT [Catalytic activity/Vol] 33 U/L 13-56 [facility] Work Phone: [phone] CO2 [Moles/Vol] 30.0 mmol/L 21.0-32.0 [facility] Work Phone: [phone] Globulin (S) [Mass/Vol] 3.2 g/dL 2.2-4.2 [facility] Work Phone: [phone] Urea nitrogen/Creatinine [Mass ratio] 17.3 mg/mg 10-20 [facility] Work Phone: [phone] Laboratory - Hematology and Cell countson 10-16-2021 Erythrocyte distribution width (RBC) [Entitic vol] 53.0 fL 35.1-43.9 [facility] Work Phone: Erythrocyte distribution width (RBC) [Ratio] 14.6 % 11.6-14.6 [facility] Work Phone: [phone] Immature granulocytes/100 WBC (Bld) 0.300 % 0.0-0.9 [facility] Work Phone: [phone] Comment on above: IG% - Immature Granu locytes (promyelocytes, myelocytes and metamyelocytes) > 1% indicates that a LEFT SHIFT is Present. MCH (RBC) [Entitic mass] 31.9 pg 27.0-32.0 [facility] Work Phone: [phone] Nucleated RBC/100 WBC (Bld) [Ratio] 0 % 0-5 [facility] Work Phone: [phone] MCHC Auto (RBC) [Mass/Vol]on 10-16-2021 MCHC (RBC) [Mass/Vol] 32.4 g/dL 32-36 [facility] Work Phone: [phone] No Panel Informationon 10-16 Estimated GFR (MDRD) Amer 61 mL/min >60 [facility] Work Phone: Comment on above: GFR Calc Estimated GFR (MDRD) Non-Af Amer 50 mL/min >60 [facility] Work Phone: Comment on above: Non- GFR Calc Platelets bldon 10-16-2021 Platelets (Bld) [#/Vol] 207 10*3/uL 150-450 [facility] Work Phone: Serum or plasma albumin amalia urement (mass/volume)on 10-16-2021 Albumin [Mass/Vol] 3.8 g/dL 3.2-5.0 [facility] Work Phone: Serum or plasma albumin/glob ulin mass ratioon 10-16-2021 Albumin/Globulin [Mass ratio] 1.2 {ratio} 0.9-2.4 [facility] Work Phone: Serum or plasma calcium amalia urement (mass/volume)on 10-16-2021 Calcium [Mass/Vol] 9.3 mg/dL 8.5-10.1 [facility] Work Phone: Serum or plasma creatinine m easurement (mass/volume)on 10-16-2021 Creatinine [Mass/Vol] 1.10 mg/dL 0.55-1.02 [facility] Work Phone: Comment on above: The validity of the calculated GFR & GFRAA in patients over 70 years has not been determined. Clinical correlation is essential. Serum or plasma urea nitroge n measurement (mass/volume)on 10-16-2021 Urea nitrogen [Mass/Vol] 19 mg/dL 7-18 [facility] Work Phone: Thin prep Papanicolaou smear with manual screeningon 10-16-2021 Thin prep Papanicolaou smear with manual screening 23 U/L 15-37 [facility] Work Phone: [phone] Thin prep Papanicolaou smear with manual screening 8 5-15 [facility] Work Phone: CNOVon 02-12-2021 CNOV Office Visit (UCWSTR) MONYBASHIR ([id number]) 1935 F Date Time Provider Department 02/12/21 10:00 AM HORTENSIA ADLER During your visit today, we recorded the following information about you: Temperature Pulse Respiration Blood pressure 96.6 degrees 63/minute 16/minute 132/84 Weight 59 kg Hortensia Adler APRN.AUT[employer] TRAVEL COUNSELOR 02/12/2021 10:22 AM Signed 1. Your doctor may ask you to apply direct pressure with your hand on the incision site for the first 2 hours following the procedure. If the bandage becomes bloody, you can replace it with dry gauze or a Band-Aid. If the site keeps bleeding, apply direct pressure again for several minutes. This should stop the bleeding. If the wound bleeds heavily, call your doctor. 2. You should remove your bandage the day after the procedure. Your doctor may ask you to replace it with a Band-Aid every day for the next few days. Most wounds do not need to be bandaged after that time. However, you may decide to wear a Band-Aid to protect the incision site from rubbing against clothing or to absorb any drainage that might occur. 3. Keep the incision clean and dry for the first 36 hours after the procedure. You should not shower the day of the surgery or the day after the surgery, but you make take a sponge bath. Washing with soap and water is permitted after the second day. Showering is preferred over bathing when you have sutures (stitches) or wound tape covering the incision site. Gently towel dry the incision site after washing. 4. During the healing process, most edges of the incision site become slightly red. Call the [facility] if the redness increases or extends more than 1/2 inch from the wound. Contact the office if you have pus from the wound, or if the incision becomes more than mildly tender or painful. 5. Wounds at risk for infection can be washed gently with soap and water each day after the first 36 hours have passed. Your doctor may ask you to put some antibiotic ointment on the incision. Apply the ointment two or four times a day until the stitches are removed. 6. Deep sutures are absorbed by the body and do not need to be removed. Your doctor will remove the sutures that do not absorb. Most skin sutures are taken out in 4 to 10 days, depending on the surgical site. You doctor will tell you when to return for suture removal. 7. Your doctor may cover the incision site with skin tape (brand name: Steri Strips) after the sutures are removed. Skin tape provide extra wound support and reduces tension on the healing scar. The skin tape can be removed 3 to 7 days after it is applied, but it sometimes falls off before this. 8. Avoid activities that can cause excessive tension (pulling) on your scar. Your doctor may ask you to avoid lifting, straining or sports for the first month after your surgery. Contact your doctor if the incision site pulls apart. Hortensia Adler APRN.RAMONE 02/12/2021 10:34 AM Signed This note was created using [employer]. Subjective Bashir Sykes is a 85 year old female. HPI [...] or rales. Chest: Chest wall: No tenderness. Musculoskeletal (more content not included)... Normal [facility] Office Visit: UC: tristian Documentation of current medications (procedure) Done Invalid Interpretation Code [facility] Work Phone: Fall risk assessment No Invalid Interpretation Code [facility] Work Phone: Tobacco use CPHS Never smoker Invalid Interpretation Code [facility] Work Phone: Vital Signs Date Time Vital Sign Value Performing Clinician Caleb silva 05-06-2025 07:57-0400 Body height 157.[address] Sagar Horton MD Work Phone: [facility] 05-06-2025 07:57-0400 Body mass index (BMI) [Ratio] 22.4 kg/m2 Dr. Sagar Horton MD Work Phone: [facility] 05-06-2025 07:57-0400 Body temperature 98.3 [degF] Dr. Sagar Horton MD Work Phone: [facility] 05-06-2025 07:57-0400 Body weight 55.[address] Sagar Horton MD Work Phone: [facility] 05-06-2025 07:57-0400 Diastolic blood pressure 68 mm[Hg] Dr. Sagar Horton MD Work Phone: [facility] 05-06-2025 07:57-0400 Heart rate 76 /min Dr. Sagar Horton MD Work Phone: [facility] 05-06-2025 07:57-0400 Respiratory rate 18 /min Dr. Sagar Horton MD Work Phone: [facility] 05-06-2025 07:57-0400 SaO2% (BldA) [Mass fraction] 97 % Dr. Sagar Horton MD Work Phone: [facility] 05-06-2025 07:57-0400 Systolic blood pressure 110 mm[Hg] Dr. Sagar Horton MD Work Phone: [facility] 11-18-2023 08:52-0500 Body mass index (BMI) [Ratio] 22.8 kg/m2 [facility] 11-18-2023 08:52-0500 Body temperature 96.8 [degF] [facility] 11-18-2023 08:52-0500 Diastolic blood pressure 91 mm[Hg] [facility] 11-18-2023 08:52-0500 Heart rate 71 /min [facility] 11-18-2023 08:52-0500 Respiratory rate 18 /min [facility] 11-18-2023 08:52-0500 Systolic blood pressure 172 mm[Hg] [facility] 11-06-2023 00:48-0500 Body weight 56.69 kg [facility] 11-04-2023 10:35-0500 Body mass index (BMI) [Ratio] 22.8 kg/m2 Dr. Sagar Horton Work Phone: [facility] 11-04-2023 10:35-0500 Body temperature 97 [degF] Dr. Sagar Horton Work Phone: [facility] 11-04-2023 10:35-0500 Diastolic blood pressure 98 mm[Hg] Dr. Sagar Horton Work Phone: [facility] 11-04-2023 10:35-0500 Heart rate 80 /min Dr. Sagar Horton Work Phone: [facility] 11-04-2023 10:35-0500 Respiratory rate 18 /min Dr. Sagar Horton Work Phone: [facility] 11-04-2023 10:35-0500 Systolic blood pressure 172 mm[Hg] Dr. Sagar Horton Work Phone: [facility] 10-06-2023 00:20-0500 Body weight 56.[address] Sagar Horton Work Phone: [facility] 09-09-2023 08:52-0500 Body mass index (BMI) [Ratio] 22.8 kg/m2 Dr. Sagar Horton Work Phone: [facility] 09-09-2023 08:52-0500 Body temperature 97.3 [degF] Dr. Sagar Horton Work Phone: [facility] 09-09-2023 08:52-0500 Diastolic blood pressure 83 mm[Hg] Dr. Sagar Horton Work Phone: [facility] 09-09-2023 08:52-0500 Heart rate 84 /min Dr. Sagar Horton Work Phone: [facility] 09-09-2023 08:52-0500 Respiratory rate 18 /min Dr. Sagar Horton Work Phone: [facility] 09-09-2023 08:52-0500 Systolic blood pressure 155 mm[Hg] Dr. Sagar Horton Work Phone: [facility] 09-05-2023 00:38-0500 Body weight 56.[address] Sagar Horton Work Phone: [facility] 08-26-2023 10:58-0500 Body mass index (BMI) [Ratio] 22.8 kg/m2 Dr. Sagar Horton Work Phone: [facility] 08-26-2023 10:58-0500 Body temperature 96.4 [degF] Dr. Sagar Horton Work Phone: [facility] 08-26-2023 10:58-0500 Diastolic blood pressure 104 mm[Hg] Dr. Sagar Horton Work Phone: [facility] 08-26-2023 10:58-0500 Heart rate 84 /min Dr. Sagar Horton Work Phone: [facility] 08-26-2023 10:58-0500 Systolic blood pressure 182 mm[Hg] Dr. Sagar Horton Work Phone: 3(753)853-586744 [place] [address] 08-12-2023 11:43-0500 Body mass index (BMI) [Ratio] 22.8 kg/m2 Dr. Sagar Horton Work Phone: 8(895)567-884144 [place] [address] 08-12-2023 11:43-0500 Body temperature 97 [degF] Dr. Sagar Horton Work Phone: 9(824)332-571344 [place] [address] 08-12-2023 11:43-0500 Diastolic blood pressure 77 mm[Hg] Dr. Sagar Horton Work Phone: 9(075)137-133334 [place] [address] 08-12-2023 11:43-0500 Heart rate 72 /min Dr. Sagar Horton Work Phone: 6(640)920-180344 [place] [address] 08-12-2023 11:43-0500 Respiratory rate 18 /min Dr. Sagar Horton Work Phone: 4(394)964-733644 [place] [address] 08-12-2023 11:43-0500 Systolic blood pressure 132 mm[Hg] Dr. Sagar Horton Work Phone: 9(336)546-839634 [place] [address] 08-06-2023 00:27-0400 Body weight 56.[address] Sagar Horton Work Phone: 7(896)860-650544 [place] [address] 08-05-2023 09:01-0400 Body height 157.[address] Sagar Horton Work Phone: 3(023)414-990544 [place] [address] 08-05-2023 09:01-0400 Body mass index (BMI) [Ratio] 22.8 kg/m2 Dr. Sagar Horton Work Phone: 1(054)643-805934 [place] [address] 08-05-2023 09:01-0400 Body temperature 97.3 [degF] Dr. Sagar Horton Work Phone: 8(312)098-813434 [place] [address] 08-05-2023 09:01-0400 Body weight 56.[address] Sagar Horton Work Phone: [facility] 08-05-2023 09:01-0400 Diastolic blood pressure 87 mm[Hg] Dr. Sagar Horton Work Phone: [facility] 08-05-2023 09:01-0400 Heart rate 83 /min Dr. Sagar Horton Work Phone: [facility] 08-05-2023 09:01-0400 Respiratory rate 16 /min Dr. Sagar Horton Work Phone: [facility] 08-05-2023 09:01-0400 Systolic blood pressure 172 mm[Hg] Dr. Sagar Horton Work Phone: [facility] 07-15-2023 15:22-0400 Diastolic blood pressure 96 mm[Hg] Dr. Sagar Horton Work Phone: [facility] 07-15-2023 15:22-0400 Systolic blood pressure 182 mm[Hg] Dr. Sagar Horton Work Phone: [facility] 07-15-2023 14:59-0400 Body temperature 98.4 [degF] Dr. Sagar Horton Work Phone: [facility] 07-15-2023 14:59-0400 Heart rate 93 /min Dr. Sagar Horton Work Phone: [facility] 07-15-2023 14:59-0400 Respiratory rate 15 /min Dr. Sagar Horton Work Phone: [facility] 07-15-2023 14:59-0400 SaO2% (BldA) [Mass fraction] 94 % Dr. Sagar Horton Work Phone: [facility] 03-30-2023 10:10-0400 Body temperature 97.6 [degF] [facility] 03-30-2023 10:10-0400 Diastolic blood pressure 78 mm[Hg] [facility] 03-30-2023 10:10-0400 Heart rate 69 /min [facility] 03-30-2023 10:10-0400 Respiratory rate 16 /min [facility] 03-30-2023 10:10-0400 SaO2% (BldA) [Mass fraction] 95 % [facility] 03-30-2023 10:10-0400 Systolic blood pressure 187 mm[Hg] [facility] 03-30-2023 08:14-0400 Body mass index (BMI) [Ratio] 24 kg/m2 [facility] 03-30-2023 08:14-0400 Body weight 59.7 kg [facility] 03-30-2023 08:05-0400 Body height 157.48 cm [facility] 11-14-2022 10:51-0500 Body height 157.[address] Sagar Horton Work Phone: [facility] 11-14-2022 10:51-0500 Body mass index (BMI) [Ratio] 23.6 kg/m2 Dr. Sagar Horton Work Phone: [facility] 11-14-2022 10:51-0500 Body weight 58.[address] Sagar Horton Work Phone: [facility] 11-14-2022 10:51-0500 Diastolic blood pressure 81 mm[Hg] Dr. Sagar Horton Work Phone: [facility] 11-14-2022 10:51-0500 Heart rate 62 /min Dr. Sagar Horton Work Phone: [facility] 11-14-2022 10:51-0500 SaO2% (BldA) [Mass fraction] 97 % Dr. Sagar Horton Work Phone: [facility] 11-14-2022 10:51-0500 Systolic blood pressure 148 mm[Hg] Dr. Sagar Horton Work Phone: [facility] 07-29-2022 09:40-0400 Body temperature 98.3 [degF] Dr. Sagar Horton Work Phone: [facility] 07-29-2022 09:40-0400 Diastolic blood pressure 66 mm[Hg] Dr. Sagar Horton Work Phone: [facility] 07-29-2022 09:40-0400 Heart rate 78 /min Dr. Sagar Horton Work Phone: [facility] 07-29-2022 09:40-0400 Respiratory rate 14 /min Dr. Sagar Horton Work Phone: [facility] 07-29-2022 09:40-0400 SaO2% (BldA) [Mass fraction] 96 % Dr. Sagar Horton Work Phone: [facility] 07-29-2022 09:40-0400 Systolic blood pressure 122 mm[Hg] Dr. Sagar Horton Work Phone: [facility] 07-26-2022 10:42-0400 Body temperature 97.6 [degF] Dr. Sagar Horton Work Phone: [facility] 07-26-2022 10:42-0400 Diastolic blood pressure 82 mm[Hg] Dr. Sagar Horton Work Phone: [facility] 07-26-2022 10:42-0400 Heart rate 60 /min Dr. Sagar Horton Work Phone: [facility] 07-26-2022 10:42-0400 Respiratory rate 16 /min Dr. Sagar Horton Work Phone: [facility] 07-26-2022 10:42-0400 SaO2% (BldA) [Mass fraction] 99 % Dr. Sagar Horton Work Phone: [facility] 07-26-2022 10:42-0400 Systolic blood pressure 128 mm[Hg] Dr. Sagar Horton Work Phone: [facility] 07-22-2022 10:29-0400 Body temperature 96.9 [degF] Dr. Sagar Horton Work Phone: [facility] 07-22-2022 10:29-0400 Diastolic blood pressure 70 mm[Hg] Dr. Sagar Horton Work Phone: [facility] 07-22-2022 10:29-0400 Heart rate 71 /min Dr. Sagar Horton Work Phone: [facility] 07-22-2022 10:29-0400 Respiratory rate 16 /min Dr. Sagar Horton Work Phone: [facility] 07-22-2022 10:29-0400 SaO2% (BldA) [Mass fraction] 92 % Dr. Sagar Horton Work Phone: [facility] 07-22-2022 10:29-0400 Systolic blood pressure 128 mm[Hg] Dr. Sagar Horton Work Phone: [facility] 06-24-2022 11:25-0400 Body height 157.[address] Sagar Horton Work Phone: [facility] Work Phone: 06-24-2022 11:25-0400 Body mass index (BMI) [Ratio] 23.2 kg/m2 Dr. Sagar Horton Work Phone: [facility] Work Phone: 06-24-2022 11:25-0400 Body weight 57.[address] Sagar Horton Work Phone: [facility] Work Phone: 06-24-2022 11:25-0400 Diastolic blood pressure 85 mm[Hg] Dr. Sagar Horton Work Phone: [facility] Work Phone: 06-24-2022 11:25-0400 Heart rate 72 /min Dr. Sagar Horton Work Phone: [facility] Work Phone: 06-24-2022 11:25-0400 SaO2% (BldA) [Mass fraction] 95 % Dr. Sagar Horton Work Phone: [facility] Work Phone: 06-24-2022 11:25-0400 Systolic blood pressure 157 mm[Hg] Dr. Sagar Horton Work Phone: [facility] Work Phone: 04-06-2022 12:14-0400 Body height 157.[address] Sagar Horton Work Phone: [facility] Work Phone: 04-06-2022 12:14-0400 Body mass index (BMI) [Ratio] 21.9 kg/m2 Dr. Sagar Horton Work Phone: [facility] Work Phone: 04-06-2022 12:14-0400 Body temperature 97.5 [degF] Dr. Sagar Horton Work Phone: [facility] Work Phone: 04-06-2022 12:14-0400 Body weight 54.[address] Sagar Horton Work Phone: [facility] Work Phone: 04-06-2022 12:14-0400 Diastolic blood pressure 70 mm[Hg] Dr. Sagar Horton Work Phone: [facility] Work Phone: 04-06-2022 12:14-0400 Heart rate 72 /min Dr. Sagar Horton Work Phone: [facility] Work Phone: 04-06-2022 12:14-0400 Respiratory rate 14 /min Dr. Sagar Horton Work Phone: [facility] Work Phone: 04-06-2022 12:14-0400 SaO2% (BldA) [Mass fraction] 96 % Dr. Sagar Horton Work Phone: [facility] Work Phone: 04-06-2022 12:14-0400 Systolic blood pressure 126 mm[Hg] Dr. Sagar Horton Work Phone: [facility] Work Phone: 02-26-2022 10:21-0400 Body height 157.[address] Sagar Horton Work Phone: [facility] Work Phone: 02-26-2022 10:21-0400 Body mass index (BMI) [Ratio] 22.8 kg/m2 Dr. Sagar Horton Work Phone: [facility] Work Phone: 02-26-2022 10:21-0400 Body weight 56.[address] Sagar Horton Work Phone: [facility] Work Phone: 02-26-2022 10:05-0400 Body temperature 97.4 [degF] Dr. Sagar Horton Work Phone: [facility] Work Phone: 02-26-2022 10:05-0400 Diastolic blood pressure 87 mm[Hg] Dr. Sagar Horton Work Phone: [facility] Work Phone: 02-26-2022 10:05-0400 Heart rate 72 /min Dr. Sagar Horton Work Phone: [facility] Work Phone: 02-26-2022 10:05-0400 Systolic blood pressure 135 mm[Hg] Dr. Sagar Horton Work Phone: [facility] Work Phone: 08-31-2017 10:12-0500 BMI (Body Mass Index) 23.57 kg/m2 Kayode TIERNEY-C [facility] Work Phone: 08-31-2017 10:12-0500 Body Temperature 98.1 [degF] Kayode TIERNEY-C [facility] Work Phone: 08-31-2017 10:12-0500 BP Diastolic 78 mm[Hg] Kayode TIERNEY-C [facility] Work Phone: 08-31-2017 10:12-0500 BP Systolic 118 mm[Hg] Kayode TIERNEY-C [facility] Work Phone: 08-31-2017 10:12-0500 Height 156.21 cm Kayode TIERNEY-C [facility] Work Phone: 08-31-2017 10:12-0500 Pulse (Heart Rate) 74 /min Kayode Villafuerte PA-C [facility] Work Phone: 08-31-2017 10:12-0500 Respiratory Rate 15 /min Kayode Villafuerte PA-C [facility] Work Phone: 08-31-2017 10:12-0500 Weight 57.52 kg Kayode Noy DAWKINS [facility] Work Phone: Encounters Encounter Date Encounter Type Care Provider Facility Start: 05-06-2025 End: 05-06-2025 Patient encounter procedure Servando Gonsales [facility] Work Phone: Start: 05-06-2025 End: 05-06-[address] Sagar Horton MD Work Phone: -[facility] Start: 03-16-2025 End: 03-16-[address] Sagar Horton MD Work Phone: [facility] Work Phone: Start: 03-16-2025 End: 03-16-[address] Adele Rockwell MD [facility] [place] Work Phone: Start: 03-16-2025 End: 03-16-2025 ambulatory Adele Rockwell Facility:[facility] Start: 02-17-2025 End: 02-17-[address] Sagar Horton MD Work Phone: [facility] Work Phone: Start: 02-17-2025 End: 02-17-[address] Sagar Horton MD -Laboratory Work Phone: Start: 02-17-2025 End: 02-17-2025 ambulatory Sagar Horton [facility] [facility] Start: 01-13-2025 End: 01-13-[address] Sagar Horton MD Work Phone: [facility] Work Phone: Start: 01-13-2025 End: 01-13-[address] Adele Rockwell MD -Laboratory, [place] Work Phone: Start: 01-13-2025 End: 01-13-2025 ambulatory Adele Rockewll Facility:[facility] Start: 12-15-2024 End: 12-15-[address] Sagar Horton MD Work Phone: [facility] Work Phone: Start: 12-15-2024 End: 12-15-[address] Adele Rockwell MD -Laboratory, [place] Work Phone: Start: 12-15-2024 End: 12-15-20[facility] Start: 08-12-2024 End: 08-12-2024 ambulatory [facility] Facility:[facility] Start: 07-28-2024 End: 07-28-2024 ambulatory [facility] Facility:[facility] Start: 07-19-2024 End: 07-20-2024 Emergency department patient visit VIKRAM DEVON Facility:[facility] Start: 07-19-2024 End: 07-19-2024 Emergency department patient visit [facility] Facility:[facility] Start: 07-16-2024 ambulatory [facility] Facility:[facility] Start: 06-25-2024 End: 07-05-2024 ambulatory [facility] Facility:[facility] Start: 06-14-2024 End: 06-14-2024 ambulatory [facility] Facility:[facility] Start: 06-08-2024 End: 06-08-2024 ambulatory [facility] Facility:[facility] Start: 02-02-2024 End: 02-02-2024 ambulatory [facility] Work Phone: Start: 02-02-2024 End: 02-02-2024 Patient encounter procedure [facility]Stephanie [facility]roz[facility] Work Phone: Start: 12-16-2023 End: 12-16-2023 ambulatory [facility] Work Phone: Start: 12-16-2023 End: 12-16-2023 Patient encounter procedure [facility] Work Phone: Start: 11-18-2023 End: 12-04-2023 ambulatory [facility] Work Phone: Start: 11-18-2023 End: 12-04-2023 Discharged Rec[facility]ring [facility] Work Phone: Start: 11-04-2023 End: 11-05-[address] Sagar Horton Work Phone: [facility] Work Phone: Start: 11-04-2023 End: 11-05-[address] Sagar Horton [facility] Work Phone: Start: 09-25-2023 End: 09-25-[address] Sagar Horton Work Phone: [facility] Work Phone: Start: 09-25-2023 End: 09-25-[address] Sagar Horton Work Phone: [facility] Work Phone: Start: 09-09-2023 End: 10-05-[address] Sagar Horton Work Phone: [facility] Work Phone: Start: 09-09-2023 End: 10-05-[address] Sagar Horton [facility] Work Phone: Start: 09-09-[address] Sagar smith Work Phone: [facility] Work Phone: Start: 08-26-2023 End: 09-04-[address] Sagar Horton Work Phone: [facility] Work Phone: Start: 08-26-2023 End: 09-04-[address] Sagar Horton Work Phone: [facility] [place] Work Phone: Start: 08-13-2023 End: 08-13-[address] Sagar Horton Work Phone: [facility] Work Phone: Start: 08-13-2023 End: 08-13-[address] Sagar Horton [facility] Phone[facility] Start: 08-12-[address] Sagar smith Work Phone: [facility] Work Phone: Start: 08-05-2023 End: 08-05-[address] Sagar Horton Work Phone: [facility] Work Phone: Start: 08-05-2023 End: 08-05-[address] Sagar Horton Work Phone: [facility] Work Phone: Start: 07-28-2023 End: 07-28-[address] Sagar Horton Work Phone: [facility] Work Phone: Start: 07-28-2023 End: 07-28-[address] Sagar Horton [facility] Work Phone: Start: 07-21-2023 End: 07-21-[address] Sagar Horton Work Phone: [facility] Work Phone: Start: 07-21-2023 End: 07-21-[address] Sagar Horton Work Phone: [facility], Specimen Work Phone: Start: 07-16-2023 End: 07-16-[address] Sagar Horton Work Phone: [facility] Work Phone: Start: 07-15-2023 End: 07-15-[address] Sagar Horton Work Phone: [facility] Work Phone: Start: 06-20-2023 End: 06-20-[address] Sagar Horton Work Phone: [facility] Work Phone: Start: 04-09-2023 End: 04-09-2023 ambulatory [facility] Work Phone: Start: 04-09-2023 End: 04-09-2023 [facility] encounter [facility] Work Phone: Start: 03-30-2023 End: 03-30-2023 Emergency department patient visit [facility] Start: 03-27-2023 End: 03-27-2023 ambulatory [facility] Work Phone: Start: 03-27-2023 End: 03-27-2023 Patient encounter procedure [facility] Start: 02-13-2023 End: 02-13-[address] Sagar Horton Work Phone: [facility] Work Phone: Start: 02-13-2023 End: 02-13-[address] Sagar Horton Work Phone: [facility], y Office [address] [place] [address] Start: 11-14-2022 End: 11-14-[address] Sagar Horton Work Phone: [facility] Start: 10-22-2022 End: 10-22-[address] Sagar Horton Work Phone: [facility] Work Phone: Start: 10-22-2022 End: 10-22-[address] Sagar Horton Work Phone: [facility] Start: 10-01-2022 End: 10-01-[address] Sagar Horton Work Phone: [facility] Work Phone: Start: 10-01-2022 End: 10-01-[address] Sagar Horton Work Phone: [facility] Start: 08-08-2022 End: 08-08-[address] Sagar Horton Work Phone: [facility] Work Phone: Start: 08-08-2022 End: 08-08-[address] Sagar Horton Work Phone: [address] Start: 07-29-2022 End: 07-29-[address] Sagar Horton Work Phone: [facility] Start: 07-26-2022 End: 07-26-[address] Sagar Horton Work Phone: [facility] Start: 07-22-2022 End: 07-22-[address] Sagar Horton Work Phone: [facility] Start: 06-24-2022 End: 06-24-[address] Sagar Horton Work Phone: [facility] Start: 05-02-2022 End: 05-02-[address] Sagar Horton Work Phone: [facility] Start: 04-11-2022 End: 04-11-[address] Sagar Horton Work Phone: [facility] Start: 04-06-2022 End: 04-06-[address] Sagar Horton Work Phone: [facility] Start: 02-26-2022 End: 02-26-[address] Sagar Horton Work Phone: [facility] Start: 02-08-2022 End: 02-08-[address] Sagar Horton Work Phone: [facility] Start: 02-07-2022 End: 02-07-[address] Sagar Horton Work Phone: [facility], [facility] Start: 12-04-2021 End: 12-04-[address] Sagar Horton Work Phone: [facility] Start: 11-22-2021 End: 11-22-[address] Sagar Horton Work Phone: [facility] Start: 10-16-2021 End: 10-16-[address] Sagar Horton Work Phone: [facility] Procedures Date Procedure Procedure Detail Performing Clinician Start: 02-17-2025 Vitamin D, 25-hydrox y measurement Dr. Sagar Horton MD Work Phone: Comment on above: Vitamin D StatusDefi ciency: <20 ng/mL (50nmol/L)Insufficiency: 20-30 ng/mL (50-75 nmol/L)Sufficiency: 30-100 ng/mL (75-250 nmol/L)Toxicity: >100 ng/mL (>250 nmol/L) Start: 02-02-2024 Computed tomography of abdomen and pelvis with contrast Start: 09-25-2023 Diagnostic radiograp hy of abdomen, decubitus and erect Dr. Sagar Horton Work Phone: Start: 07-28-2023 Investigation of transfusion reaction Dr. Sagar Horton Work Phone: Start: 07-28-2023 Microbial culture, routine Dr. Sagar Horton Work Phone: Start: 07-21-2023 Investigation of transfusion reaction Dr. Sagar Horton Work Phone: Start: 07-21-2023 Microbial culture, routine Dr. Sagar Horton Work Phone: Start: 07-21-[address] Jack Horton Work Phone: Start: 04-09-2023 Radiography of thora cic spine Start: 04-09-2023 X-ray of lumbosacral spine Start: 03-30-2023 CT of chest, abdomen and pelvis without contrast Start: 03-30-2023 CT cervical spine wi thout contrast Start: 03-30-2023 CT of head without contrast Start: 10-01-2022 X-ray of chest posteroanterior view Dr. Sagar Horton Work Phone: Start: 12-04-2021 CT angiography of head Dr. Sagar Horton Work Phone: History of decompres mary of median nerve History of carpal tunnel release Dr. Sagar Horton Work Phone: History of operative procedure on knee History of left knee replacement Dr. Sagar Horton Work Phone: History of operative procedure on knee History of right knee surgery Dr. Sagar Horton Work Phone: Plan of Treatment Date Care Activity Detail Author Start: 07-21-2023 [facility] Start: 08-31-2017 End: 08-31-2017 Appointment Appointment [facility] Work Phone: Patient Education ED Back Contus ion ED Head Injury (Adult) ED Fall Prevention [facility] Work Phone: Patient referral [facility] Work Phone: [facility] Work Phone: Immunizations Immunization Date Immunization Notes Care Provider Fa [facility] 07-16-2023 tetanus toxoid, redu marika diphtheria toxoid, and acellular pertussis vaccine, adsorbed Dr. Sagar Horton Work Phone: [facility] 07-22-2022 tetanus toxoid, redu marika diphtheria toxoid, and acellular pertussis vaccine, adsorbed Dr. Sagar Horton Work Phone: [facility] 06-11-2020 tetanus toxoid, redu marika diphtheria toxoid, and acellular pertussis vaccine, adsorbed Dr. Sagar Horton Work Phone: [facility] 06-20-[address] Sagar Horton Work Phone: [facility] 06-23-[address] Sagar Horton Work Phone: [facility] 02-19-[address] Sagar Horton Work Phone: [facility] Work Phone: 02-19-2012 pneumococcal vaccine , unspecified formulation Dr. Sagar Horton Work Phone: [facility] Payers Date Payer Category Payer Unknown PENDING 2024 Self-pay [id number] 2015 Medicare [id number] Unknown [id number] 2.16.8 [id number] Unknown [id number] 2.16.8 [id number] Unknown [id number] 2.16.8 [id number] Unknown [id number] 2.16.8 [id number] Unknown [id number] 2.16.8 [id number] Unknown [id number] 2.16.8 [id number] Unknown [id number] 2.16.8 [id number] Unknown [id number] 2.16.8 [id number] Unknown [id number] 2.16.8 [id number] Unknown [id number] 2.16.8 [id number] Unknown [id number] 2.16.8 [id number] Unknown [id number] 2.16.8 [id number] Social History Date Type Detail Facility Start: 02-08-2022 End: 08-05-2023 Tobacco smoking status DEIS Unknown if ever smoked [facility] Start: 06-11-2020 None [facility] Start: 06-11-2020 With Family [facility] Start: 11-07-2019 Non-smoker [facility] Start: 1935 Sex Assigned At Female [facility] Start: 07-19-2024 Tobacco smoking stat [facility] Never smoked tobacco (finding) [facility] Start: 12-25-2024 End: 01-19-2025 Sex Female (finding) [facility] Medical Equipment Procedure Code Equipment Code Equipment Origin al Text Equipment Identifier Dates ORIF, fracture, patella BLUNT TIP CANNULATED LAG SCREW FDA Start: 11-14-2019 ORIF, fracture, patella FIBERTAPE FDA Start: 11-14-2019 ORIF, fracture, patella BLUNT TIP CANNULATED LAG SCREW FDA Start: 11-14-2019 ORIF, fracture, patella FIBERTAPE FDA Start: 11-14-2019 ORIF, fracture, patella BLUNT TIP CANNULATED LAG SCREW FDA Start: 11-14-2019 ORIF, fracture, patella FIBERTAPE FDA Start: 11-14-2019 ORIF, fracture, patella BLUNT TIP CANNULATED LAG SCREW FDA Start: 11-14-2019 ORIF, fracture, patella FIBERTAPE FDA Start: 11-14-2019 ORIF, fracture, patella BLUNT TIP CANNULATED LAG SCREW FDA Start: 11-14-2019 ORIF, fracture, patella FIBERTAPE FDA Start: 11-14-2019 ORIF, fracture, patella BLUNT TIP CANNULATED LAG SCREW FDA Start: 11-14-2019 ORIF, fracture, patella FIBERTAPE FDA Start: 11-14-2019 ORIF, fracture, patella BLUNT TIP CANNULATED LAG SCREW FDA Start: 11-14-2019 ORIF, fracture, patella FIBERTAPE FDA Start: 11-14-2019 ORIF, fracture, patella BLUNT TIP CANNULATED LAG SCREW FDA Start: 11-14-2019 ORIF, fracture, patella FIBERTAPE FDA Start: 11-14-2019 ORIF, fracture, patella BLUNT TIP CANNULATED LAG SCREW FDA Start: 11-14-2019 ORIF, fracture, patella FIBERTAPE FDA Start: 11-14-2019 ORIF, fracture, patella BLUNT TIP CANNULATED LAG SCREW FDA Start: 11-14-2019 ORIF, fracture, patella FIBERTAPE FDA Start: 11-14-2019 ORIF, fracture, patella BLUNT TIP CANNULATED LAG SCREW FDA Start: 11-14-2019 ORIF, fracture, patella FIBERTAPE FDA Start: 11-14-2019 ORIF, fracture, patella BLUNT TIP CANNULATED LAG SCREW FDA Start: 11-14-2019 ORIF, fracture, patella FIBERTAPE FDA Start: 11-14-2019 ORIF, fracture, patella BLUNT TIP CANNULATED LAG SCREW FDA Start: 11-14-2019 ORIF, fracture, patella FIBERTAPE FDA Start: 11-14-2019 ORIF, fracture, patella BLUNT TIP CANNULATED LAG SCREW FDA Start: 11-14-2019 ORIF, fracture, patella FIBERTAPE FDA Start: 11-14-2019 ORIF, fracture, patella BLUNT TIP CANNULATED LAG SCREW FDA Start: 11-14-2019 ORIF, fracture, patella FIBERTAPE FDA Start: 11-14-2019 ORIF, fracture, patella BLUNT TIP CANNULATED LAG SCREW FDA Start: 11-14-2019 ORIF, fracture, patella FIBERTAPE FDA Start: 11-14-2019 ORIF, fracture, patella BLUNT TIP CANNULATED LAG SCREW FDA Start: 11-14-2019 ORIF, fracture, patella FIBERTAPE FDA Start: 11-14-2019 ORIF, fracture, patella BLUNT TIP CANNULATED LAG SCREW FDA Start: 11-14-2019 ORIF, fracture, patella FIBERTAPE FDA Start: 11-14-2019 ORIF, fracture, patella BLUNT TIP CANNULATED LAG SCREW FDA Start: 11-14-2019 ORIF, fracture, patella FIBERTAPE FDA Start: 11-14-2019 ORIF, fracture, patella BLUNT TIP CANNULATED LAG SCREW FDA Start: 11-14-2019 ORIF, fracture, patella FIBERTAPE FDA Start: 11-14-2019 ORIF, fracture, patella BLUNT TIP CANNULATED LAG SCREW FDA Start: 11-14-2019 ORIF, fracture, patella FIBERTAPE FDA Start: 11-14-2019 ORIF, fracture, patella BLUNT TIP CANNULATED LAG SCREW FDA Start: 11-14-2019 ORIF, fracture, patella FIBERTAPE FDA Start: 11-14-2019 ORIF, fracture, patella BLUNT TIP CANNULATED LAG SCREW FDA Start: 11-14-2019 ORIF, fracture, patella FIBERTAPE FDA Start: 11-14-2019 ORIF, fracture, patella BLUNT TIP CANNULATED LAG SCREW FDA Start: 11-14-2019 ORIF, fracture, patella FIBERTAPE FDA Start: 11-14-2019 ORIF, fracture, patella BLUNT TIP CANNULATED LAG SCREW FDA Start: 11-14-2019 ORIF, fracture, patella FIBERTAPE FDA Start: 11-14-2019 ORIF, fracture, patella BLUNT TIP CANNULATED LAG SCREW FDA Start: 11-14-2019 ORIF, fracture, patella FIBERTAPE FDA Start: 11-14-2019 ORIF, fracture, patella BLUNT TIP CANNULATED LAG SCREW FDA Start: 11-14-2019 ORIF, fracture, patella FIBERTAPE FDA Start: 11-14-2019 Clinical Notes 02-12-2021 to 11-18-2023 Note Date & Type Note Facility 11-18-2023 History and physi dipika note Note Date/Time November 18, 2023 9:21am [facility] [address] [place] [address] H&P Exam - Wound Care 11/18/2316 MR#: [id number] Acct: [id number] Name: BASHIR SYKES Rep #:[id number] : 1935 88 From: [facility] PCP: Dr. Sagar Horton MD Status:REG R CR Location: History of Present Illness Date of Service: 11/18/23 Chief Complaint: Laceration of the right pretibial surface History of Wound: This is an 88-year-old female who is active and functional. She presented today with an new, open wound on the right pretibial surface, which she sustained approximately 1 week prior to presentation. She tripped over the cat, sustaining trauma to the right pretibial region, resulting in an open wound. She has recently been treated at the [facility] for a chronic, non-healing wound on the left pretibial surface, the result of a traumatic injury approximately 3 weeks prior to presentation. As result of conservative treatment measures, the wound on the left pretibial surface has healed, the patient was last seen at this facility inDecember 2022. The patient is of normal body habitus. She is active. She sleeps on a flat mattress at night. She denies a history of thromboembolic disease. Recent laboratory studies were done on June 20, 2023, with results as follows: White blood count 7.4, hemoglobin 3.8, hematocrit 43.5, platelets 214,000, sodium 143, potassium 4.1, chloride 109, BUN 20, creatinine 1.04, glucose 94, calcium 9.1, total bilirubin 0.50, ALT 29, alkaline phosphatase 83, total protein 6.6, serum albumin 3.7. [facility] Medical History Arthritis Cellulitis of left lower limb Cervical myofascial strain Chronic venous insufficiency Contusion, nose Diarrhea Forehead abrasion History of cerebral aneurysm History of deep vein thrombosis History of patellar fracture History of pulmonary embolism History of TIA (transient ischemic attack) Hyperlipidemia Laceration of left hand Laceration of left lower leg with complication Laceration of right lower leg Microscopic colitis Non-pressure ulcer of right lower extremity with fat layer exposed Osteoporosis Right leg pain Skin tear of left lower leg without complication Small intestinal bacterial overgrowth Traumatic open wound of right lower leg Varicose veins of both lower extremities with inflammation Home Medications levothyroxine 75 mcg tablet 75 mcg PO DAILY thyroid 07/23/13 [History Last Taken 11/13/19] calcium carbonate 500 mg-vitamin D3 10 mcg (400 unit) tablet 1 ea PO DAILY supplement 02/10/14 [History Last Taken Unknown] cyanocobalamin (vitamin B-12) 500 mcg tablet 500 mcg PO DAILY@0800 supplement 02/10/14 [History Last Taken Unknown] hydroxychloroquine 200 mg tablet 300 mg PO DAILY arthritis 05/29/19 [History Last Taken Unknown] metoprolol succinate 25 mg tablet,extended release 24 hr 25 mg PO DAILY bp/heart05/29/19 [History Last Taken Unknown] acetaminophen 325 mg tablet 650 mg (2 x 325 mg) PO Q6H PRN PRN Pain Score 1-10/Temp > 100.7 F #100 tabs 11/15/19 [Rx Last Taken Unknown] colestipol 1 gram tablet 1 g PO BID diarrhea #180 tabs 11/14/22 [Rx Last Taken Unknown] PRAMIPEXOLE DIHYDROCHLORIDE 0.125 mg PO QHS PRN INSOMNIA 08/05/23 [History Last Taken Unknown] Allergy/AdvReac Type Severity Reaction Status Date / Time No Known Allergies Allergy Verified 08/05/23 09:21 Family History Father CVA (cerebral vascular accident) Mother CVA (cerebral vascular accident) Surgical History History of breast biopsy History of carpal tunnel release History of right knee surgery History of total left knee replacement Surgical History no surgical history Social History Smoking Status: Never smoker alcohol intake: current alcohol intake frequency: a few times a month Vital Signs Vital Signs Vital Signs: 11/18/23 08:52 Temperature 96.8 F L Temperature Source Temporal Pulse Rate 71 Respiratory Rate 18 Blood Pressure 172/91 H Blood Pressure Mean 118 Blood Pressure Source Monitor Blood Pressure Position Semi-Fowlers Blood Pressure Location Left Arm Oxygen Delivery Method Room Air Weight Weight: 125 lb Body Mass Index (BMI) 22.8 Physical Exam Const alert, oriented x3, no apparent distress, average body habitus, no limitations, healthy appearing and well nourished General Appearance: cooperative, comfortable, well kempt and well developed Orientation / Consciousness: awake, oriented to person, oriented to place and oriented to time HEENT normocephalic, head/scalp atraumatic and hearing grossly normal bilaterally Head and Scalp: normal to inspection, normocephalic and atraumatic External Ear: external ears normal Eyes PERRL and EOMs intact bilaterally General Eye: normal appearance of both eyes Neck full ROM Resp normal respiratory effort, normal air movement, no retractions and no use of accessory muscles Effort and Inspection: able to speak in complete sentences and symmetric chest movement Extremity no calf tenderness General Extremity: Negative for clubbing or cyanosis Skin Wound Narrative: No significant swelling or edema are noted in the patient's lower extremities bilaterally. Numerous varicosities are noted in the lower extremities diffusely. Mild lipodermatosclerosis and hemosiderin staining is noted in the gaiter areas bilaterally. The patient's prior wound on the left pretibial surface remains completely healed. An open wound persists on the right pretibial surface, which is now smaller in size, and looks to be now largely epithelialized. There is no sign of infection or cellulitis. Neuro oriented x3, CN's II-XII intact bilaterally, moves all extremities and no focal motor deficits Sensorium / Orientation: awake, alert, oriented to person, oriented to place andoriented to time Psych Appearance: grossly normal and appropriate Attitude: calm Activity / Motor Behavior: appropriate eye contact Speech: normal speech Mood & Affect: euthymic mood Thought Process: normal thought process Thought Content: normal thought content Attention / Concentration: attention grossly intact Debridement Note Debridement Note No debridement was completed: No debridement was completed today (The patient's right pretibial wound appears to be largely epithelialized, and was left undisturbed today.) Post-Debridement Measurements and Additional Note: Post-Debridement Measurements/Treatment - Nurse 1 - General Ulcer Assessment Start: 11/11/23 08:54 Freq: Status: Active Protocol: LEDY.CARL Activity Type Activity Date Activity User E-sign Co-sign Detail Recorded Client Recorded Date Recorded By Document 11/11/23 08:54 KW Desktop 11/11/23 09:01 KW Document 11/18/23 08:52 KW Desktop 11/18/23 09:00 KW 11/11/23 11/18/23 08:54 08:52 - Today's Visit Information Type of service Follow-up Visit Follow-up Visit (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 (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 ) ) Arrival Mode Ambulatory Ambulatory Patient Identification Verified (Name & Yes Yes ) Height and Weight Body Mass Index (BMI) 22.8 22.8 BMI Classification Normal Normal Vital Signs Temperature (97.8 F-99.1 F) 96.8 F L 96.8 F L Temperature Source Temporal Temporal Pulse Rate (60-100) 84 71 Pulse Location Monitor Monitor Respiratory Rate (12-18) 18 18 Respiratory rate source Observation Observation Oxygen Delivery Method Room Air Room Air Blood Pressure (90/60-120/80) 183/109 H 172/91 H Blood Pressure Mean 133 118 Source Monitor Monitor Position Semi-Fowlers Semi-Fowlers Blood Pressure Location Right Arm Left Arm History Since Last Visit- (Skip if this is Patient's initial visit) Have you changed medications since your No No last visit? Any new allergies or adverse reactions No No Had a fall/change in ADL's that may No No increase risk of falls Signs or symptoms of abuse and/or No No neglect since last visit Have you been in the hospital since your No No last visit? Has dressing in place as prescribed Yes Yes Has compression in place as prescribed No N/A Has offloadiing in place as prescribed No No Experienced any changes in pain level or No No management Left Footwear Regular Shoe Regular Shoe Right Footwear Regular Shoe Regular Shoe Pain Scale: 0-10 Numeric Is Patient Pain Free? Yes Yes WC - Nurse 1 - General Ulcer Measurement Start: 11/11/23 08:54 Freq: Status: Active Protocol: Activity Type Activity Date Activity User E-sign Co-sign Detail Recorded Client Recorded Date Recorded By Document 11/11/23 08:54 KW Desktop 11/11/23 09:01 KW Document 11/18/23 08:52 KW Desktop 11/18/23 09:00 KW 11/11/23 11/18/23 08:54 08:52 Wound Center Nurse 1 #3 Right Ankle -Current Size (cm) - Length 1.5 1.1 -Current Size (cm) - Width 1.7 0.7 -Current Size (cm) - Depth 0.1 0.1 -Total Square Cm 2.55 0.77 -Date of Last Picture (Recall this 11/18/23 field) -Photo Taken Yes -Exudate Amt Small None Present -Exudate Type Serosanguineous -Wound Margin Distinct, Distinct, Outline Outline Attached Attached -Granulation Amt Large (67-100%) -Granulation Quality Red -Texture (Jennifer-wound Skin Appearance) Assessed Callus, Localized Edema -Moisture (Jennifer-wound Skin Appearance) Assessed Assessed -Color (Jennifer-wound Skin Appearance) Assessed Assessed, Erythema -Temperature (Jennifer-wound Skin No Abnormality No Abnormality Appearance) (Pt Warm) (Pt Warm) -Tenderness on Palpation (Jennifer-wound No Skin Appearance) -Ulcer Cleansing Rinsed/ Rinsed/ Irrigated with Irrigated with Saline Saline -Anesthetic Used 5% Lidocaine 5% Lidocaine Gel Gel -Wound Comment(s) scabbed ulcer WC - Nurse 2 - General Ulcer CM Notes Start: 11/11/23 08:54 Freq: Status: Active Protocol: Activity Type Activity Date Activity User E-sign Co-sign Detail Recorded Client Recorded Date Recorded By Document 11/11/23 11:44 PL [id number] 11/11/23 11:45 PL 11/11/23 11:44 Wound Center Nurse 2 -Time 09:09 -Correct Patient Yes -Correct Side, Site, Position Yes -Correct Procedure Yes -Procedure Performed Yes -Type of Procedure Debridement -Clinical Debridement Subcutaneous -Tissue Removed Subcutaneous -Post Debridement (cm) - Length 1.5 -Post Debridement (cm) - Width 1.7 -Post Debridement (cm) - Depth 0.1 -Total Square (Post) (cm) 2.55 -Area of Debridement (cm) - Length 1.5 -Area of Debridement (cm) - Width 1.7 -Total Square (Area) (cm) 2.55 -Tunneling No -Undermining/Tunneling No -Circular Undermining No -Wound/Ulcer Outcome Not Healed -Ulcer Cleansing Rinsed/ Irrigated with Saline -Foul Odor after Cleansing No -Bioengineered Tissue No -Bleeding Controlled with Pressure -Treatment Response Procedure Tolerated Well -Debridement - Subq, 1st 20sq cm Yes Pain Scale: 0-10 Numeric Is Patient Pain Free? Yes WC - Nurse 3 - General Ulcer D/C NN Start: 11/11/23 08:54 Freq: Status: Active Protocol: Activity Type Activity Date Activity User E-sign Co-sign Detail Recorded Client Recorded Date Recorded By Document 11/11/23 11:45 PL [id number] 11/11/23 11:46 PL 11/11/23 11:45 Wound Care Center Nurse 3 #3 Right Ankle -Ulcer Cleansing Rinsed/ Irrigated with Saline -Foul Odor after Cleansing No -Primary Dressing Applied Mepilex Border -Other Dressing Hydrogel -Mepilex Border 1 Pain Scale: 0-10 Numeric Is Patient Pain Free? Yes WC - Visit Discharge Discharge Condition Stable Ambulatory Status Ambulatory Transportation Private Auto Assessment/Plan Assessment/Plan (1) Traumatic open wound of right lower leg: CODE(S): S81.801A - Unspecified open wound, right lower leg, initial encounter QUALIFIERS: Encounter type: subsequent encounter Qualified Code(s): S81.801D - Unspecified open wound, right lower leg, subsequent encounter (2) Non-pressure ulcer of right lower extremity with fat layer exposed: CODE(S): L97.912 - Non-pressure chronic ulcer of unspecified part of rightlower leg with fat layer exposed (3) Laceration of left lower leg with complication: CODE(S): S81.812A - Laceration without foreign body, left lower leg, initial encounter QUALIFIERS: Encounter type: subsequent encounter Qualified Code(s): S81.812D - Laceration without foreign body, left lower leg, subsequent encounter (4) Chronic venous insufficiency: CODE(S): I87.2 - Venous insufficiency (chronic) (peripheral) (5) Varicose veins of both lower extremities with inflammation: CODE(S): I83.11 - Varicose veins of right lower extremity with inflammation; I83.12 - Varicose veins of left lower extremity with inflammation (6) Cellulitis of left lower limb: CODE(S): L03.116 - Cellulitis of left lower limb (7) Arthritis: CODE(S): M19.90 - Unspecified osteoarthritis, unspecified site (8) History of TIA (transient ischemic attack): CODE(S): Z86.73 - Personal history of transient ischemic attack (TIA), andcerebral infarction without residual deficits (9) Osteoporosis: CODE(S): M81.0 - Age-related osteoporosis without current pathological fracture (10) Hypertension: CODE(S): I10 - Essential (primary) hypertension QUALIFIERS: Hypertension type: essential hypertension Qualified Code(s): I10 - Essential (primary) hypertension (11) GERD (gastroesophageal reflux disease): CODE(S): K21.9 - Gastro-esophageal reflux disease without esophagitis QUALIFIERS: Esophagitis presence: esophagitis presence not specified Qualified Code(s): K21.9 - Gastro-esophageal reflux disease without esophagitis (12) Hypothyroid: CODE(S): E03.9 - Hypothyroidism, unspecified QUALIFIERS: Hypothyroidism type: unspecified Qualified Code(s): E03.9 - Hypothyroidism, unspecified (13) History of left knee replacement: CODE(S): Z96.652 - Presence of left artificial knee joint (14) Hyperlipidemia: CODE(S): E78.5 - Hyperlipidemia, unspecified (15) History of carpal tunnel release: CODE(S): Z98.890 - Other specified postprocedural states (16) History of right knee surgery: CODE(S): Z98.890 - Other specified postprocedural states (17) History of breast biopsy: CODE(S): Z98.890 - Other specified postprocedural states (18) History of total left knee replacement: CODE(S): Z96.652 - Presence of left artificial knee joint PLAN: Plan This is an 88-year-old female who is active and functional. She presented with a recent wound to the right pretibial surface, the result of trauma due to tripping over her cat. At the time of presentation, a devitalized flap of epidermis was noted loosely adherent to the surface of the wound, which was sharply excised. There is no sign of infection or cellulitis. The wound continues to diminish in size, and is now largely epithelialized. As result, nodebridement was performed today. We are to continue local wound care by means of collagen hydrogel which will be applied topically on a daily basis. This is to be covered with gauze. Patient has been instructed in the appropriate means of application. She is to continue compression to her lower extremities by means of Tubigrip's, and has been provided a prescription for graduated compression stockings of 15 to 20 mmHg compression. She is to obtain the stockings, and wear on a daily basis. The patient is to return in 2 weeks for reevaluation. The patient has been encouraged to optimize her nutritional intake. Review of the patient's recent laboratory results reveals no significant abnormalities, with total protein and albumin to be relatively normal. She is to remain active, and elevate her lower extremities as much as possible while sedentary. It is anticipated that the patient's wound will be healed at the time of her next follow-up visit. Total time: 22 minutes 11/18/23920 <Electronically signed by Pan Mancia MD> Cosigner Signature (if applicable): CC: ~ Signed [facility] Work Phone: 1(482) 411-573402-06-2024 History and physical note Author Pan Mancia [facility] November 11, 2023 9:30am Note Date/Time November 11, 2023 9 :30am [facility] [address] [place] [address] H&P Exam - Wound Care 11/11/23926 MR#: [id number] Acct: [id number] Name: BASHIR SYKES Rep #:[id number] : 1935 88 From: Pan Frias PCP: Dr. Sagar Horton MD Status:REG R CR Location: History of Present Illness Date of Service: 11/11/23 Chief Complaint: Laceration of the right pretibial surface History of Wound: This is an 88-year-old female who is active and functional. She presented today with an new, open wound on the right pretibial surface, which she sustained approximately 1 week prior to presentation. She tripped over the cat, sustaining trauma to the right pretibial region, resulting in an open wound. She has recently been treated at the [facility] for a chronic, non-healing wound on the left pretibial surface, the result of a traumatic injury approximately 3 weeks prior to presentation. As result of conservative treatment measures, the wound on the left pretibial surface has healed, the patient was last seen at this facility inDecember 2022. The patient is of normal body habitus. She is active. She sleeps on a flat mattress at night. She denies a history of thromboembolic disease. Recent laboratory studies were done on June 20, 2023, with results as follows: White blood count 7.4, hemoglobin 3.8, hematocrit 43.5, platelets 214,000, sodium 143, potassium 4.1, chloride 109, BUN 20, creatinine 1.04, glucose 94, calcium 9.1, total bilirubin 0.50, ALT 29, alkaline phosphatase 83, total protein 6.6, serum albumin 3.7. PFSH Medical History Arthritis Cellulitis of left lower limb Cervical myofascial strain Chronic venous insufficiency Contusion, nose Diarrhea Forehead abrasion History of cerebral aneurysm History of deep vein thrombosis History of patellar fracture History of pulmonary embolism History of TIA (transient ischemic attack) Hyperlipidemia Laceration of left hand Laceration of left lower leg with complication Laceration of right lower leg Microscopic colitis Non-pressure ulcer of right lower extremity with fat layer exposed Osteoporosis Right leg pain Skin tear of left lower leg without complication Small intestinal bacterial overgrowth Traumatic open wound of right lower leg Varicose veins of both lower extremities with inflammation Home Medications levothyroxine 75 mcg tablet 75 mcg PO DAILY thyroid 07/23/13 [History Last Taken 11/13/19] calcium carbonate 500 mg-vitamin D3 10 mcg (400 unit) tablet 1 ea PO DAILY supplement 02/10/14 [History Last Taken Unknown] cyanocobalamin (vitamin B-12) 500 mcg tablet 500 mcg PO DAILY@0800 supplement 02/10/14 [History Last Taken Unknown] hydroxychloroquine 200 mg tablet 300 mg PO DAILY arthritis 05/29/19 [History Last Taken Unknown] metoprolol succinate 25 mg tablet,extended release 24 hr 25 mg PO DAILY bp/heart05/29/19 [History Last Taken Unknown] acetaminophen 325 mg tablet 650 mg (2 x 325 mg) PO Q6H PRN PRN Pain Score 1- 10/Temp > 100.7 F #100 tabs 11/15/19 [Rx Last Taken Unknown] colestipol 1 gram tablet 1 g PO BID diarrhea #180 tabs 11/14/22 [Rx Last Taken Unknown] PRAMIPEXOLE DIHYDROCHLORIDE 0.125 mg PO QHS PRN INSOMNIA 08/05/23 [History Last Taken Unknown] Allergy/AdvReac Type Severity Reaction Status Date / Time No Known Allergies Allergy Verified 08/05/23 09:21 Family History Father CVA (cerebral vascular accident) Mother CVA (cerebral vascular accident) Surgical History History of breast biopsy History of carpal tunnel release History of right knee surgery History of total left knee replacement Surgical History no surgical history Social History Smoking Status: Never smoker alcohol intake: current alcohol intake frequency: a few times a month Vital Signs Vital Signs Vital Signs: 11/11/23 08:54 Temperature 96.8 F L Temperature Source Temporal Pulse Rate 84 Respiratory Rate 18 Blood Pressure 183/109 H Blood Pressure Mean 133 Blood Pressure Source Monitor Blood Pressure Position Semi-Fowlers Blood Pressure Location Right Arm Oxygen Delivery Method Room Air Weight Weight: 125 lb Body Mass Index (BMI) 22.8 Physical Exam Const alert, oriented x3, no apparent distress, average body habitus, no limitations, healthy appearing and well nourished General Appearance: cooperative, comfortable, well kempt and well developed Orientation / Consciousness: awake, oriented to person, oriented to place and oriented to time HEENT normocephalic, head/scalp atraumatic and hearing grossly normal bilaterally Head and Scalp: normal to inspection, normocephalic and atraumatic External Ear: external ears normal Eyes PERRL and EOMs intact bilaterally General Eye: normal appearance of both eyes Neck full ROM Resp normal respiratory effort, normal air movement, no retractions and no use of accessory muscles Effort and Inspection: able to speak in complete sentences and symmetric chest movement Extremity no calf tenderness General Extremity: Negative for clubbing or cyanosis Skin Wound Narrative: No significant swelling or edema are noted in the patient's lower extremities bilaterally. Numerous varicosities are noted in the lower extremities diffusely. Mild lipodermatosclerosis and hemosiderin staining is noted in the gaiter areas bilaterally. The patient's prior wound on the left pretibial surface remains completely healed. An open wound persists on the right pretibial surface, which is now smaller in size. There is no sign of infection or cellulitis. Dimensions are documented elsewhere. There is a moderate amountof bioburden. Neuro oriented x3, CN's II-XII intact bilaterally, moves all extremities and no focal motor deficits Sensorium / Orientation: awake, alert, oriented to person, oriented to place andoriented to time Psych Appearance: grossly normal and appropriate Attitude: calm Activity / Motor Behavior: appropriate eye contact Speech: normal speech Mood & Affect: euthymic mood Thought Process: normal thought process Thought Content: normal thought content Attention / Concentration: attention grossly intact Debridement Note Debridement Note Wound debrided: Right pretibial wound Laterality: Right Type of Debridement: Excisional debridement Anesthesia Used: 5% Lidocaine Gel Depth: Down to and including healthy tissue and in the subcutaneous layer Percentage of wound debrided: 100 Instrument Used: 5mm curette, Forceps and - (Scissors) Tissue Removed: Bioburden, nonviable tissue, and devitalized epidermis Severity: Fat Layer Exposed Amount of bleeding with debridement: Mild Bleeding Controlled with: Compression and gauze Patient tolerated procedure: Patient tolerated procedure well Post-Debridement Measurements and Additional Note: Post-Debridement Measurements/Treatment - Nurse 1 - General Ulcer Assessment Start: 11/11/23 08:54 Freq: Status: Active Protocol: BETHEL Activity Type Activity Date Activity User E-sign Co-sign Detail Recorded Client Recorded Date Recorded By Document 11/11/23 08:54 KW Desktop 11/11/23 09:01 KW 11/11/23 08:54 WC - Today's Visit Information Type of service Follow-up Visit (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 ) Arrival Mode Ambulatory Patient Identification Verified (Name & Yes ) Height and Weight Body Mass Index (BMI) 22.8 BMI Classification Normal Vital Signs Temperature (97.8 F-99.1 F) 96.8 F L Temperature Source Temporal Pulse Rate (60-100) 84 Pulse Location Monitor Respiratory Rate (12-18) 18 Respiratory rate source Observation Oxygen Delivery Method Room Air Blood Pressure (90/60-120/80) 183/109 H Blood Pressure Mean 133 Source Monitor Position Semi-Fowlers Blood Pressure Location Right Arm History Since Last Visit- (Skip if this is Patient's initial visit) Have you changed medications since your No last visit? Any new allergies or adverse reactions No Had a fall/change in ADL's that may No increase risk of falls Signs or symptoms of abuse and/or No neglect since last visit Have you been in the hospital since your No last visit? Has dressing in place as prescribed Yes Has compression in place as prescribed No Has offloadiing in place as prescribed No Experienced any changes in pain level or No management Left Footwear Regular Shoe Right Footwear Regular Shoe Pain Scale: 0-10 Numeric Is Patient Pain Free? Yes - Nurse 1 - General Ulcer Measurement Start: 11/11/23 08:54 Freq: Status: Active Protocol: Activity Type Activity Date Activity User E-sign Co-sign Detail Recorded Client Recorded Date Recorded By Document 11/11/23 08:54 KW Desktop 11/11/23 09:01 KW 11/11/23 08:54 Wound Center Nurse 1 #3 Right Ankle -Current Size (cm) - Length 1.5 -Current Size (cm) - Width 1.7 -Current Size (cm) - Depth 0.1 -Total Square Cm 2.55 -Exudate Amt Small -Exudate Type Serosanguineous -Wound Margin Distinct, Outline Attached -Granulation Amt Large (67-100%) -Granulation Quality Red -Texture (Jennifer-wound Skin Appearance) Assessed -Moisture (Jennifer-wound Skin Appearance) Assessed -Color (Jennifer-wound Skin Appearance) Assessed -Temperature (Jennifer-wound Skin No Abnormality Appearance) (Pt Warm) -Ulcer Cleansing Rinsed/ Irrigated with Saline -Anesthetic Used 5% Lidocaine Gel Assessment/Plan Assessment/Plan (1) Traumatic open wound of right lower leg: CODE(S): S81.801A - Unspecified open wound, right lower leg, initial encounter QUALIFIERS: Encounter type: subsequent encounter Qualified Code(s): S81.801D - Unspecified open wound, right lower leg, subsequent encounter (2) Non-pressure ulcer of right lower extremity with fat layer exposed: CODE(S): L97.912 - Non-pressure chronic ulcer of unspecified part of rightlower leg with fat layer exposed (3) Laceration of left lower leg with complication: CODE(S): S81.812A - Laceration without foreign body, left lower leg, initial encounter QUALIFIERS: Encounter type: subsequent encounter Qualified Code(s): S81.812D - Laceration without foreign body, left lower leg, subsequent encounter (4) Chronic venous insufficiency: CODE(S): I87.2 - Venous insufficiency (chronic) (peripheral) (5) Varicose veins of both lower extremities with inflammation: CODE(S): I83.11 - Varicose veins of right lower extremity with inflammation; I83.12 - Varicose veins of left lower extremity with inflammation (6) Cellulitis of left lower limb: CODE(S): L03.116 - Cellulitis of left lower limb (7) Arthritis: CODE(S): M19.90 - Unspecified osteoarthritis, unspecified site (8) History of TIA (transient ischemic attack): CODE(S): Z86.73 - Personal history of transient ischemic attack (TIA), andcerebral infarction without residual deficits (9) Osteoporosis: CODE(S): M81.0 - Age-related osteoporosis without current pathological fracture (10) Hypertension: CODE(S): I10 - Essential (primary) hypertension QUALIFIERS: Hypertension type: essential hypertension Qualified Code(s): I10 - Essential (primary) hypertension (11) GERD (gastroesophageal reflux disease): CODE(S): K21.9 - Gastro-esophageal reflux disease without esophagitis QUALIFIERS: Esophagitis presence: esophagitis presence not specified Qualified Code(s): K21.9 - Gastro-esophageal reflux disease without esophagitis (12) Hypothyroid: CODE(S): E03.9 - Hypothyroidism, unspecified QUALIFIERS: Hypothyroidism type: unspecified Qualified Code(s): E03.9 - Hypothyroidism, unspecified (13) History of left knee replacement: CODE(S): Z96.652 - Presence of left artificial knee joint (14) Hyperlipidemia: CODE(S): E78.5 - Hyperlipidemia, unspecified (15) History of carpal tunnel release: CODE(S): Z98.890 - Other specified postprocedural states (16) History of right knee surgery: CODE(S): Z98.890 - Other specified postprocedural states (17) History of breast biopsy: CODE(S): Z98.890 - Other specified postprocedural states (18) History of total left knee replacement: CODE(S): Z96.652 - Presence of left artificial knee joint PLAN: Plan This is an 88-year-old female who is active and functional. She presented with a recent wound to the right pretibial surface, the result of trauma due to tripping over her cat. At the time of presentation, a devitalized flap of epidermis was noted loosely adherent to the surface of the wound, which was sharply excised. There is no sign of infection or cellulitis. The wound continues to diminish in size. We are to continue local wound care by means of collagen hydrogel which will be applied topically on a daily basis. This is to be covered with gauze. Patient has been instructed in the appropriate means of application. She is to continue compression to her lower extremities by means of Tubigrip's. The patient is to return in 1 week for reevaluation. The patient has been encouraged to optimize her nutritional intake. Review of the patient's recent laboratory results reveals no significant abnormalities, with total protein and albumin to be relatively normal. She is to remain active, andelevate her lower extremities as much as possible while sedentary. Preauthorization for the use of an EpiFix allograft will be sought, though may not be necessary. Total time: 24 minutes 11/11/23 0930 <Electronically signed by Pan Mancia MD> Cosigner Signature (if applicable): CC: ~ Signed [facility] Work Phone: [phone]) 644-105401-30-2024 History and physical note Author Pan Mancia [facility] November 04, 2023 11:45am Note Date/Time November 04, 2023 1 1:45am [facility] [address] [place] [id number] H&P Exam - Wound Care 11/04/23 1138 MR#: [id number] Acct: [id number] Name: BASHIR SYKES Rep #:[id number] : 1935 88 From: Pan Frias PCP: Dr. Sagar Horton MD Status:REG R CR Location: History of Present Illness Date of Service: 11/04/23 Chief Complaint: Laceration of the right pretibial surface History of Wound: This is an 88-year-old female who is active and functional. She presented today with an new, open wound on the right pretibial surface, which she sustained approximately 1 week prior to presentation. She tripped over the cat, sustaining trauma to the right pretibial region, resulting in an open wound. She has recently been treated at the [facility] for a chronic, non-healing wound on the left pretibial surface, the result of a traumatic injury approximately 3 weeks prior to presentation. As result of conservative treatment measures, the wound on the left pretibial surface has healed, the patient was last seen at this facility inDecember 2022. The patient is of normal body habitus. She is active. She sleeps on a flat mattress at night. She denies a history of thromboembolic disease. Recent laboratory studies were done on June 20, 2023, with results as follows: White blood count 7.4, hemoglobin 3.8, hematocrit 43.5, platelets 214,000, sodium 143, potassium 4.1, chloride 109, BUN 20, creatinine 1.04, glucose 94, calcium 9.1, total bilirubin 0.50, ALT 29, alkaline phosphatase 83, total protein 6.6, serum albumin 3.7. [facility] Medical History Arthritis Cellulitis of left lower limb Cervical myofascial strain Chronic venous insufficiency Contusion, nose Diarrhea Forehead abrasion History of cerebral aneurysm History of deep vein thrombosis History of patellar fracture History of pulmonary embolism History of TIA (transient ischemic attack) Hyperlipidemia Laceration of left hand Laceration of left lower leg with complication Laceration of right lower leg Microscopic colitis Non-pressure ulcer of right lower extremity with fat layer exposed Osteoporosis Right leg pain Skin tear of left lower leg without complication Small intestinal bacterial overgrowth Traumatic open wound of right lower leg Varicose veins of both lower extremities with inflammation Home Medications levothyroxine 75 mcg tablet 75 mcg PO DAILY thyroid 07/23/13 [History Last Taken 11/13/19] calcium carbonate 500 mg-vitamin D3 10 mcg (400 unit) tablet 1 ea PO DAILY supplement 02/10/14 [History Last Taken Unknown] cyanocobalamin (vitamin B-12) 500 mcg tablet 500 mcg PO DAILY@0800 supplement 02/10/14 [History Last Taken Unknown] hydroxychloroquine 200 mg tablet 300 mg PO DAILY arthritis 05/29/19 [History Last Taken Unknown] metoprolol succinate 25 mg tablet,extended release 24 hr 25 mg PO DAILY bp/heart05/29/19 [History Last Taken Unknown] acetaminophen 325 mg tablet 650 mg (2 x 325 mg) PO Q6H PRN PRN Pain Score 1- 10/Temp > 100.7 F #100 tabs 11/15/19 [Rx Last Taken Unknown] colestipol 1 gram tablet 1 g PO BID diarrhea #180 tabs 11/14/22 [Rx Last Taken Unknown] PRAMIPEXOLE DIHYDROCHLORIDE 0.125 mg PO QHS PRN INSOMNIA 08/05/23 [History Last Taken Unknown] Allergy/AdvReac Type Severity Reaction Status Date / Time No Known Allergies Allergy Verified 08/05/23 09:21 Family History Father CVA (cerebral vascular accident) Mother CVA (cerebral vascular accident) Surgical History History of breast biopsy History of carpal tunnel release History of right knee surgery History of total left knee replacement Surgical History no surgical history Social History Smoking Status: Never smoker alcohol intake: current alcohol intake frequency: a few times a month Vital Signs Vital Signs Vital Signs: 11/04/23 10:35 Temperature 97.0 F L Temperature Source Temporal Pulse Rate 80 Respiratory Rate 18 Blood Pressure 172/98 H Blood Pressure Mean 122 Blood Pressure Source Monitor Blood Pressure Position Sitting Blood Pressure Location Left Arm Oxygen Delivery Method Room Air Weight Weight: 125 lb Body Mass Index (BMI) 22.8 Physical Exam Const alert, oriented x3, no apparent distress, average body habitus, no limitations, healthy appearing and well nourished General Appearance: cooperative, comfortable, well kempt and well developed Orientation / Consciousness: awake, oriented to person, oriented to place and oriented to time HEENT normocephalic, head/scalp atraumatic and hearing grossly normal bilaterally Head and Scalp: normal to inspection, normocephalic and atraumatic External Ear: external ears normal Eyes PERRL and EOMs intact bilaterally General Eye: normal appearance of both eyes Neck full ROM Resp normal respiratory effort, normal air movement, no retractions and no use of accessory muscles Effort and Inspection: able to speak in complete sentences and symmetric chest movement Extremity no calf tenderness General Extremity: Negative for clubbing or cyanosis Skin Wound Narrative: No significant swelling or edema are noted in the patient's lower extremities bilaterally. Numerous varicosities are noted in the lower extremities diffusely. Mild lipodermatosclerosis and hemosiderin staining is noted in the gaiter areas bilaterally. The patient's prior wound on the left pretibial surface remains completely healed. An open wound persists on the right pretibial surface, which is now smaller in size. There is no sign of infection or cellulitis. Dimensions are documented elsewhere. There is a moderate amountof bioburden. Neuro oriented x3, CN's II-XII intact bilaterally, moves all extremities and no focal motor deficits Sensorium / Orientation: awake, alert, oriented to person, oriented to place andoriented to time Psych Appearance: grossly normal and appropriate Attitude: calm Activity / Motor Behavior: appropriate eye contact Speech: normal speech Mood & Affect: euthymic mood Thought Process: normal thought process Thought Content: normal thought content Attention / Concentration: attention grossly intact Debridement Note Debridement Note Wound debrided: Right pretibial wound Laterality: Right Type of Debridement: Excisional debridement Anesthesia Used: 5% Lidocaine Gel Depth: Down to and including healthy tissue and in the subcutaneous layer Percentage of wound debrided: 100 Instrument Used: 5mm curette, Forceps and - (Scissors) Tissue Removed: Bioburden, nonviable tissue, and devitalized epidermis Severity: Fat Layer Exposed Amount of bleeding with debridement: Mild Bleeding Controlled with: Compression and gauze Patient tolerated procedure: Patient tolerated procedure well Post-Debridement Measurements and Additional Note: Post-Debridement Measurements/Treatment - Nurse 1 - General Ulcer Assessment Start: 10/21/23 10:16 Freq: Status: Active Protocol: BETHEL Activity Type Activity Date Activity User E-sign Co-sign Detail Recorded Client Recorded Date Recorded By Document 10/21/23 10:17 MT Desktop 10/21/23 10:21 MT Document 11/04/23 10:35 KW Desktop 11/04/23 10:40 KW 10/21/23 11/04/23 10:17 10:35 - Today's Visit Information Type of service Follow-up Visit (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 ) Arrival Mode Ambulatory Patient Identification Verified (Name & Yes ) Height and Weight Body Mass Index (BMI) 22.8 22.8 BMI Classification Normal Normal Vital Signs Temperature (97.8 F-99.1 F) 97.0 F L Temperature Source Temporal Pulse Rate (60-100) 80 Pulse Location Monitor Respiratory Rate (12-18) 18 Respiratory rate source Observation Oxygen Delivery Method Room Air Blood Pressure (90/60-120/80) 172/98 H Blood Pressure Mean 122 Source Monitor Position Sitting Blood Pressure Location Left Arm History Since Last Visit- (Skip if this is Patient's initial visit) Have you changed medications since your No last visit? Any new allergies or adverse reactions No Had a fall/change in ADL's that may No increase risk of falls Signs or symptoms of abuse and/or No neglect since last visit Have you been in the hospital since your No last visit? Has dressing in place as prescribed Yes Has compression in place as prescribed Yes Has offloadiing in place as prescribed No Experienced any changes in pain level or No management Left Footwear Regular Shoe Right Footwear Regular Shoe Pain Scale: 0-10 Numeric Is Patient Pain Free? Yes Yes LEDY - Nurse 1 - General Ulcer Measurement Start: 10/21/23 10:16 Freq: Status: Active Protocol: Activity Type Activity Date Activity User E-sign Co-sign Detail Recorded Client Recorded Date Recorded By Document 10/21/23 10:17 MT Desktop 10/21/23 10:21 MT Document 11/04/23 10:35 KW Desktop 11/04/23 10:40 KW 10/21/23 11/04/23 10:17 10:35 Wound Center Nurse 1 #3 Right Ankle -Current Size (cm) - Length 2.1 1.6 -Current Size (cm) - Width 1.8 1.5 -Current Size (cm) - Depth 0.1 0.1 -Total Square Cm 3.78 2.40 -Date of Last Picture (Recall this 10/21/23 field) -Photo Taken Yes -Tunneling No -Undermining/Tunneling No -Circular Undermining No -Exudate Amt Medium Small -Exudate Type Sanguineous Serosanguineous -Wound Margin Flat & Intact Distinct, Outline Attached -Granulation Amt Large (67-100%) Large (67-100%) -Granulation Quality Pale,Hayes,Red Red -Slough/Fibrin No -Texture (Jennifer-wound Skin Appearance) Assessed Assessed -Moisture (Jennifer-wound Skin Appearance) Assessed Assessed -Color (Jennifer-wound Skin Appearance) Assessed Assessed, Erythema -Temperature (Jennifer-wound Skin No Abnormality No Abnormality Appearance) (Pt Warm) (Pt Warm) -Tenderness on Palpation (Jennifer-wound No No Skin Appearance) -Ulcer Cleansing Soap and Water Rinsed/ Irrigated with Saline -Foul Odor after Cleansing No -Anesthetic Used 5% Lidocaine 5% Lidocaine Gel Gel Lower Limb Edema Present NA Right Calf (cm) 31.5 WC - Nurse 2 - General Ulcer CM Notes Start: 10/21/23 10:16 Freq: Status: Active Protocol: Activity Type Activity Date Activity User E-sign Co-sign Detail Recorded Client Recorded Date Recorded By Document 10/21/23 11:08 PL [id number] 10/21/23 11:09 PL 10/21/23 11:08 Wound Center Nurse 2 #3 Right Ankle -Time 10:25 -Correct Patient Yes -Correct Side, Site, Position Yes -Correct Procedure Yes -Procedure Performed Yes -Type of Procedure Debridement -Clinical Debridement Subcutaneous -Tissue Removed Subcutaneous -Post Debridement (cm) - Length 2.1 -Post Debridement (cm) - Width 1.8 -Post Debridement (cm) - Depth 0.1 -Total Square (Post) (cm) 3.78 -Area of Debridement (cm) - Length 2.1 -Area of Debridement (cm) - Width 1.8 -Total Square (Area) (cm) 3.78 -Tunneling No -Undermining/Tunneling No -Circular Undermining No -Wound/Ulcer Outcome Not Healed -Ulcer Cleansing Rinsed/ Irrigated with Saline -Foul Odor after Cleansing No -Bioengineered Tissue No -Bleeding Controlled with Pressure -Treatment Response Procedure Tolerated Well -Debridement - Subq, 1st 20sq cm Yes Pain Scale: 0-10 Numeric Is Patient Pain Free? Yes WC - Nurse 3 - General Ulcer D/C NN Start: 10/21/23 10:16 Freq: Status: Active Protocol: Activity Type Activity Date Activity User E-sign Co-sign Detail Recorded Client Recorded Date Recorded By Document 10/21/23 10:38 UT Desktop 10/21/23 10:39 UT Document 11/04/23 11:21 RB Desktop 11/04/23 11:22 RB 10/21/23 11/04/23 10:38 11:21 Wound Care Center Nurse 3 #3 Right Ankle -Ulcer Cleansing Soap and Water Rinsed/ Irrigated with Saline -Foul Odor after Cleansing No -Negative Pressure Wound Therapy N/A -Primary Dressing Applied C Hydrogel ($) -Other Dressing hydrogel -Primary Dressing Covered/Secured with Dry Gauze & Dry Gauze,Dry Roll Gauze, Gauze & Roll Secured with Gauze,Secured Tape with Tape Right -Tubular Bandage Single Layer Single Layer -Size of Tubigrip Used Size C Size C -Size C ($) 1 1 Treatment Response Procedure Tolerated Well Pain Scale: 0-10 Numeric Is Patient Pain Free? No Yes Teaching: Wound Center Compression Wraps & Stockings -Person Taught Patient -Teaching Method Discussion, Demonstration -Response to teaching Verbalize understanding WC - Visit Discharge Discharge Condition Stable Stable Ambulatory Status Ambulatory Ambulatory Transportation Private Auto Private Auto Medication Reconcilliation completed & No No provided to patient/care provider Clinical Summary of Care Provided Yes Yes Notes: pt verbalized understanding of new dressing change Assessment/Plan Assessment/Plan (1) Traumatic open wound of right lower leg: CODE(S): S81.801A - Unspecified open wound, right lower leg, initial encounter QUALIFIERS: Encounter type: subsequent encounter Qualified Code(s): S81.801D - Unspecified open wound, right lower leg, subsequent encounter (2) Non-pressure ulcer of right lower extremity with fat layer exposed: CODE(S): L97.912 - Non-pressure chronic ulcer of unspecified part of rightlower leg with fat layer exposed (3) Laceration of left lower leg with complication: CODE(S): S81.812A - Laceration without foreign body, left lower leg, initial encounter QUALIFIERS: Encounter type: subsequent encounter Qualified Code(s): S81.812D - Laceration without foreign body, left lower leg, subsequent encounter (4) Chronic venous insufficiency: CODE(S): I87.2 - Venous insufficiency (chronic) (peripheral) (5) Varicose veins of both lower extremities with inflammation: CODE(S): I83.11 - Varicose veins of right lower extremity with inflammation; I83.12 - Varicose veins of left lower extremity with inflammation (6) Cellulitis of left lower limb: CODE(S): L03.116 - Cellulitis of left lower limb (7) Arthritis: CODE(S): M19.90 - Unspecified osteoarthritis, unspecified site (8) History of TIA (transient ischemic attack): CODE(S): Z86.73 - Personal history of transient ischemic attack (TIA), andcerebral infarction without residual deficits (9) Osteoporosis: CODE(S): M81.0 - Age-related osteoporosis without current pathological fracture (10) Hypertension: CODE(S): I10 - Essential (primary) hypertension QUALIFIERS: Hypertension type: essential hypertension Qualified Code(s): I10 - Essential (primary) hypertension (11) GERD (gastroesophageal reflux disease): CODE(S): K21.9 - Gastro-esophageal reflux disease without esophagitis QUALIFIERS: Esophagitis presence: esophagitis presence not specified Qualified Code(s): K21.9 - Gastro-esophageal reflux disease without esophagitis (12) Hypothyroid: CODE(S): E03.9 - Hypothyroidism, unspecified QUALIFIERS: Hypothyroidism type: unspecified Qualified Code(s): E03.9 - Hypothyroidism, unspecified (13) History of left knee replacement: CODE(S): Z96.652 - Presence of left artificial knee joint (14) Hyperlipidemia: CODE(S): E78.5 - Hyperlipidemia, unspecified (15) History of carpal tunnel release: CODE(S): Z98.890 - Other specified postprocedural states (16) History of right knee surgery: CODE(S): Z98.890 - Other specified postprocedural states (17) History of breast biopsy: CODE(S): Z98.890 - Other specified postprocedural states (18) History of total left knee replacement: CODE(S): Z96.652 - Presence of left artificial knee joint PLAN: Plan This is an 88-year-old female who is active and functional. She presented with a recent wound to the right pretibial surface, the result of trauma due to tripping over her cat. At the time of presentation, a devitalized flap of epidermis was noted loosely adherent to the surface of the wound, which was sharply excised. There is no sign of infection or cellulitis. We are to continue local wound care by means of collagen hydrogel which will be applied topically on a daily basis. This is to be covered with gauze. Patient has beeninstructed in the appropriate means of application. She is to continue compression to her lower extremities by means of Tubigrip's. The patient is to return in 1 week for reevaluation. The patient has been encouraged to optimize her nutritional intake. Review of the patient's recent laboratory results reveals no significant abnormalities, with total protein and albumin to be relatively normal. She is to remain active, and elevate her lower extremities as much as possible while sedentary. Preauthorization for the use of an EpiFixallograft will be sought. Total time: 26 minutes 11/04/23 1145 <Electronically signed by Pan Mancia MD> Cosigner Signature (if applicable): CC: ~ Signed [facility] Work Phone: [phone] History and physical note Author Pan Mancia [facility] October 21, 2023 11:10am Note Date/Time October 21, 2023 1 1:10am [facility] [address] [place] [address] H&P Exam - Wound Care 10/21/23 1057 MR#: [id number] Acct: [id number] Name: BASHIR SYKES Rep #:[id number] : 1935 88 From: Pan Frias PCP: Dr. Sagar Horton MD Status:REG R CR Location: History of Present Illness Date of Service: 10/21/23 Chief Complaint: Laceration of the right pretibial surface History of Wound: This is an 88-year-old female who is active and functional. She presented today with an new, open wound on the right pretibial surface, which she sustained approximately 1 week prior to presentation. She tripped over the cat, sustaining trauma to the right pretibial region, resulting in an open wound. She has recently been treated at the [facility] for a chronic, non-healing wound on the left pretibial surface, the result of a traumatic injury approximately 3 weeks prior to presentation. As result of conservative treatment measures, the wound on the left pretibial surface has healed, the patient was last seen at this facility inDecember 2022. The patient is of normal body habitus. She is active. She sleeps on a flat mattress at night. She denies a history of thromboembolic disease. Recent laboratory studies were done on June 20, 2023, with results as follows: White blood count 7.4, hemoglobin 3.8, hematocrit 43.5, platelets 214,000, sodium 143, potassium 4.1, chloride 109, BUN 20, creatinine 1.04, glucose 94, calcium 9.1, total bilirubin 0.50, ALT 29, alkaline phosphatase 83, total protein 6.6, serum albumin 3.7. [facility] Medical History Arthritis Cellulitis of left lower limb Cervical myofascial strain Chronic venous insufficiency Contusion, nose Diarrhea Forehead abrasion History of cerebral aneurysm History of deep vein thrombosis History of patellar fracture History of pulmonary embolism History of TIA (transient ischemic attack) Hyperlipidemia Laceration of left hand Laceration of left lower leg with complication Laceration of right lower leg Microscopic colitis Non-pressure ulcer of right lower extremity with fat layer exposed Osteoporosis Right leg pain Skin tear of left lower leg without complication Small intestinal bacterial overgrowth Traumatic open wound of right lower leg Varicose veins of both lower extremities with inflammation Home Medications levothyroxine 75 mcg tablet 75 mcg PO DAILY thyroid 07/23/13 [History Last Taken 11/13/19] calcium carbonate 500 mg-vitamin D3 10 mcg (400 unit) tablet 1 ea PO DAILY supplement 02/10/14 [History Last Taken Unknown] cyanocobalamin (vitamin B-12) 500 mcg tablet 500 mcg PO DAILY@0800 supplement 02/10/14 [History Last Taken Unknown] hydroxychloroquine 200 mg tablet 300 mg PO DAILY arthritis 05/29/19 [History Last Taken Unknown] metoprolol succinate 25 mg tablet,extended release 24 hr 25 mg PO DAILY bp/heart05/29/19 [History Last Taken Unknown] acetaminophen 325 mg tablet 650 mg (2 x 325 mg) PO Q6H PRN PRN Pain Score 1- 10/Temp > 100.7 F #100 tabs 11/15/19 [Rx Last Taken Unknown] colestipol 1 gram tablet 1 g PO BID diarrhea #180 tabs 11/14/22 [Rx Last Taken Unknown] PRAMIPEXOLE DIHYDROCHLORIDE 0.125 mg PO QHS PRN INSOMNIA 08/05/23 [History Last Taken Unknown] Allergy/AdvReac Type Severity Reaction Status Date / Time No Known Allergies Allergy Verified 08/05/23 09:21 Family History Father CVA (cerebral vascular accident) Mother CVA (cerebral vascular accident) Surgical History History of breast biopsy History of carpal tunnel release History of right knee surgery History of total left knee replacement Surgical History no surgical history Social History Smoking Status: Never smoker alcohol intake: current alcohol intake frequency: a few times a month Vital Signs Vital Signs Vital Signs: Weight Weight: 125 lb Body Mass Index (BMI) 22.8 Physical Exam Const alert, oriented x3, no apparent distress, average body habitus, no limitations, healthy appearing and well nourished General Appearance: cooperative, comfortable, well kempt and well developed Orientation / Consciousness: awake, oriented to person, oriented to place and oriented to time HEENT normocephalic, head/scalp atraumatic and hearing grossly normal bilaterally Head and Scalp: normal to inspection, normocephalic and atraumatic External Ear: external ears normal Eyes PERRL and EOMs intact bilaterally General Eye: normal appearance of both eyes Neck full ROM Resp normal respiratory effort, normal air movement, no retractions and no use of accessory muscles Effort and Inspection: able to speak in complete sentences and symmetric chest movement Extremity no calf tenderness General Extremity: Negative for clubbing or cyanosis Skin Wound Narrative: No significant swelling or edema are noted in the patient's lower extremities bilaterally. Numerous varicosities are noted in the lower extremities diffusely. Mild hemosiderin staining is noted in the gaiter areas bilaterally. The patient's prior wound on the left pretibial surface remains completely healed. An open wound is now noted on the right pretibial surface, with a devitalized flap of epidermis loosely adherent to the surface. There is no signof infection or cellulitis. Dimensions are documented elsewhere. There is a moderate amount of bioburden. Neuro oriented x3, CN's II-XII intact bilaterally, moves all extremities and no focal motor deficits Sensorium / Orientation: awake, alert, oriented to person, oriented to place andoriented to time Psych Appearance: grossly normal and appropriate Attitude: calm Activity / Motor Behavior: appropriate eye contact Speech: normal speech Mood & Affect: euthymic mood Thought Process: normal thought process Thought Content: normal thought content Attention / Concentration: attention grossly intact Debridement Note Debridement Note Wound debrided: Right pretibial wound Laterality: Right Type of Debridement: Excisional debridement Anesthesia Used: 5% Lidocaine Gel Depth: Down to and including healthy tissue and in the subcutaneous layer Percentage of wound debrided: 100 Instrument Used: 5mm curette, Forceps and - (Scissors) Tissue Removed: Bioburden, nonviable tissue, and devitalized epidermis Severity: Fat Layer Exposed Amount of bleeding with debridement: Mild Bleeding Controlled with: Compression and gauze Patient tolerated procedure: Patient tolerated procedure well Post-Debridement Measurements and Additional Note: Post-Debridement Measurements/Treatment WC - Nurse 1 - General Ulcer Assessment Start: 10/21/23 10:16 Freq: Status: Active Protocol: BETHEL Activity Type Activity Date Activity User E-sign Co-sign Detail Recorded Client Recorded Date Recorded By Document 10/21/23 10:17 [email or web address] 10/21/23 10:21 UT 10/21/23 10:17 Height and Weight Body Mass Index (BMI) 22.8 BMI Classification Normal Pain Scale: 0-10 Numeric Is Patient Pain Free? Yes WC - Nurse 1 - General Ulcer Measurement Start: 10/21/23 10:16 Freq: Status: Active Protocol: Activity Type Activity Date Activity User E-sign Co-sign Detail Recorded Client Recorded Date Recorded By Document 10/21/23 10:17 UT [employer] 10/21/23 10:21 UT 10/21/23 10:17 Wound Center Nurse 1 #3 Right Ankle -Current Size (cm) - Length 2.1 -Current Size (cm) - Width 1.8 -Current Size (cm) - Depth 0.1 -Total Square Cm 3.78 -Date of Last Picture (Recall this 10/21/23 field) -Photo Taken Yes -Tunneling No -Undermining/Tunneling No -Circular Undermining No -Exudate Amt Medium -Exudate Type Sanguineous -Wound Margin Flat & Intact -Granulation Amt Large (67-100%) -Granulation Quality Pale,Hayes,Red -Slough/Fibrin No -Texture (Jennifer-wound Skin Appearance) Assessed -Moisture (Jennifer-wound Skin Appearance) Assessed -Color (Jennifer-wound Skin Appearance) Assessed -Temperature (Jennifer-wound Skin No Abnormality Appearance) (Pt Warm) -Tenderness on Palpation (Jennifer-wound No Skin Appearance) -Ulcer Cleansing Soap and Water -Foul Odor after Cleansing No -Anesthetic Used 5% Lidocaine Gel Lower Limb Edema Present NA WC - Nurse 3 - General Ulcer D/C NN Start: 10/21/23 10:16 Freq: Status: Active Protocol: Activity Type Activity Date Activity User E-sign Co-sign Detail Recorded Client Recorded Date Recorded By Document 10/21/23 10:38 UT [employer]zy [employer] 10/21/23 10:39 UT 10/21/23 10:38 Wound Care Center Nurse 3 #3 Right Ankle -Ulcer Cleansing Soap and Water -Foul Odor after Cleansing No -Negative Pressure Wound Therapy N/A -Primary Dressing Applied C Hydrogel ($) -Primary Dressing Covered/Secured with Dry Gauze & Roll Gauze, Secured with Tape Right -Tubular Bandage Single Layer -Size of Tubigrip Used Size C -Size C ($) 1 Pain Scale: 0-10 Numeric Is Patient Pain Free? No WC - Visit Discharge Discharge Condition Stable Ambulatory Status Ambulatory Transportation Private Auto Medication Reconcilliation completed & No provided to patient/care provider Clinical Summary of Care Provided Yes Notes: pt verbalized understanding of new dressing change Assessment/Plan Assessment/Plan (1) Traumatic open wound of right lower leg: CODE(S): S81.801A - Unspecified open wound, right lower leg, initial encounter QUALIFIERS: Encounter type: initial encounter Qualified Code(s): S81.801A - Unspecified open wound, right lower leg, initial encounter (2) Non-pressure ulcer of right lower extremity with fat layer exposed: CODE(S): L97.912 - Non-pressure chronic ulcer of unspecified part of rightlower leg with fat layer exposed (3) Laceration of left lower leg with complication: CODE(S): S81.812A - Laceration without foreign body, left lower leg, initial encounter QUALIFIERS: Encounter type: subsequent encounter Qualified Code(s): S81.812D - Laceration without foreign body, left lower leg, subsequent encounter (4) Chronic venous insufficiency: CODE(S): I87.2 - Venous insufficiency (chronic) (peripheral) (5) Varicose veins of both lower extremities with inflammation: CODE(S): I83.11 - Varicose veins of right lower extremity with inflammation; I83.12 - Varicose veins of left lower extremity with inflammation (6) Cellulitis of left lower limb: CODE(S): L03.116 - Cellulitis of left lower limb (7) Arthritis: CODE(S): M19.90 - Unspecified osteoarthritis, unspecified site (8) History of TIA (transient ischemic attack): CODE(S): Z86.73 - Personal history of transient ischemic attack (TIA), andcerebral infarction without residual deficits (9) Osteoporosis: CODE(S): M81.0 - Age-related osteoporosis without current pathological fracture (10) Hypertension: CODE(S): I10 - Essential (primary) hypertension QUALIFIERS: Hypertension type: essential hypertension Qualified Code(s): I10 - Essential (primary) hypertension (11) GERD (gastroesophageal reflux disease): CODE(S): K21.9 - Gastro-esophageal reflux disease without esophagitis QUALIFIERS: Esophagitis presence: esophagitis presence not specified Qualified Code(s): K21.9 - Gastro-esophageal reflux disease without esophagitis (12) Hypothyroid: CODE(S): E03.9 - Hypothyroidism, unspecified QUALIFIERS: Hypothyroidism type: unspecified Qualified Code(s): E03.9 - Hypothyroidism, unspecified (13) History of left knee replacement: CODE(S): Z96.652 - Presence of left artificial knee joint (14) Hyperlipidemia: CODE(S): E78.5 - Hyperlipidemia, unspecified (15) History of carpal tunnel release: CODE(S): Z98.890 - Other specified postprocedural states (16) History of right knee surgery: CODE(S): Z98.890 - Other specified postprocedural states (17) History of breast biopsy: CODE(S): Z98.890 - Other specified postprocedural states (18) History of total left knee replacement: CODE(S): Z96.652 - Presence of left artificial knee joint PLAN: Plan This is an 88-year-old female who is active and functional. She presented with a recent wound to the right pretibial surface, the result of trauma due to tripping over her cat. At the time of presentation, a devitalized flap of epidermis was noted loosely adherent to the surface of the wound, which was sharply excised. There is no sign of infection or cellulitis. We are to implement local wound care by means of collagen hydrogel which will be applied topically on a daily basis. This is to be covered with gauze. Patient has beeninstructed in the appropriate means of application. She is to continue compression to her lower extremities by means of Tubigrip's. The patient is to return in 1 week for reevaluation. The patient has been encouraged to optimize her nutritional intake. Review of the patient's recent laboratory results reveals no significant abnormalities, with total protein and albumin to be relatively normal. She is to remain active, and elevate her lower extremities as much as possible while sedentary. Total time: 25 minutes 10/21/23 1110 <Electronically signed by Pan Mancia MD> Cosigner Signature (if applicable): CC: ~ Signed [facility] Work Phone: 1(571) 514-381612-05-2023 History and physical note Author Pan Mancia [facility] September 09, 2023 9:19am Note Date/Time September 09, 2023 9 :19am [facility] [address] [place] [address] H&P Exam - Wound Care 09/09/23 0914 MR#: [id number] Acct: [id number] Name: BASHIR SYKES Rep #:[id number] : 1935 87 From: Pan Frias PCP: Dr. Sagar Horton MD Status:REG R CR Location: History of Present Illness Date of Service: 09/09/23 Chief Complaint: Laceration of the left distal lower extremity with associated cellulitis History of Wound: This is an 87-year-old female who is active and functional. She presents with a chronic, non-healing wound on the left pretibial surface, the result of a traumatic injury approximately 3 weeks prior to presentation. 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 This resulted in a laceration. She was initially seen in an urgent care facility, and a day later by her primary care physician. She developed a cellulitis, and has been treated with 2 coursesof oral antibiotics, both Keflex and doxycycline. Wound cultures were obtained,which were negative. She has been using an antibiotic ointment topically. The patient is of normal body habitus. She is active. She sleeps on a flat mattress at night. She denies a history of thromboembolic disease. Recent laboratory studies were done on June 20, 2023, with results as follows: White blood count 7.4, hemoglobin 3.8, hematocrit 43.5, platelets 214,000, sodium 143, potassium 4.1, chloride 109, BUN 20, creatinine 1.04, glucose 94, calcium 9.1, total bilirubin 0.50, ALT 29, alkaline phosphatase 83, total protein 6.6, serum albumin 3.7. PFSH Medical History Arthritis Cellulitis of left lower limb Cervical myofascial strain Chronic venous insufficiency Contusion, nose Diarrhea Forehead abrasion History of cerebral aneurysm History of deep vein thrombosis History of patellar fracture History of pulmonary embolism History of TIA (transient ischemic attack) Hyperlipidemia Laceration of left hand Laceration of left lower leg with complication Laceration of right lower leg Microscopic colitis Osteoporosis Right leg pain Skin tear of left lower leg without complication Small intestinal bacterial overgrowth Varicose veins of both lower extremities with inflammation Home Medications levothyroxine 75 mcg tablet 75 mcg PO DAILY thyroid 07/23/13 [History Last Taken 11/13/19] calcium carbonate 500 mg-vitamin D3 10 mcg (400 unit) tablet 1 ea PO DAILY supplement 02/10/14 [History Last Taken Unknown] cyanocobalamin (vitamin B-12) 500 mcg tablet 500 mcg PO DAILY@0800 supplement 02/10/14 [History Last Taken Unknown] hydroxychloroquine 200 mg tablet 300 mg PO DAILY arthritis 05/29/19 [History Last Taken Unknown] metoprolol succinate 25 mg tablet,extended release 24 hr 25 mg PO DAILY bp/heart05/29/19 [History Last Taken Unknown] acetaminophen 325 mg tablet 650 mg (2 x 325 mg) PO Q6H PRN PRN Pain Score 1- 10/Temp > 100.7 F #100 tabs 11/15/19 [Rx Last Taken Unknown] colestipol 1 gram tablet 1 g PO BID diarrhea #180 tabs 11/14/22 [Rx Last Taken Unknown] PRAMIPEXOLE DIHYDROCHLORIDE 0.125 mg PO QHS PRN INSOMNIA 08/05/23 [History Last Taken Unknown] Allergy/AdvReac Type Severity Reaction Status Date / Time No Known Allergies Allergy Verified 08/05/23 09:21 Family History Father CVA (cerebral vascular accident) Mother CVA (cerebral vascular accident) Surgical History History of breast biopsy History of carpal tunnel release History of right knee surgery History of total left knee replacement Surgical History no surgical history Social History Smoking Status: Never smoker alcohol intake: current alcohol intake frequency: a few times a month Vital Signs Vital Signs Vital Signs: 09/09/23 08:52 Temperature 97.3 F L Temperature Source Temporal Pulse Rate 84 Respiratory Rate 18 Blood Pressure 155/83 H Blood Pressure Mean 107 Blood Pressure Source Monitor Weight Weight: 125 lb Body Mass Index (BMI) 22.8 Physical Exam Const alert, oriented x3, no apparent distress, average body habitus, no limitations, healthy appearing and well nourished General Appearance: cooperative, comfortable, well kempt and well developed Orientation / Consciousness: awake, oriented to person, oriented to place and oriented to time HEENT normocephalic, head/scalp atraumatic and hearing grossly normal bilaterally Head and Scalp: normal to inspection, normocephalic and atraumatic External Ear: external ears normal Eyes PERRL and EOMs intact bilaterally General Eye: normal appearance of both eyes Neck full ROM Resp normal respiratory effort, normal air movement, no retractions and no use of accessory muscles Effort and Inspection: able to speak in complete sentences and symmetric chest movement Extremity no calf tenderness General Extremity: Negative for clubbing or cyanosis Skin Wound Narrative: No significant swelling or edema are noted in the patient's lower extremities bilaterally. Numerous varicosities are noted in the lower extremities diffusely. Mild hemosiderin staining is noted in the gaiter areas bilaterally. A wound is noted on the left pretibial surface, which appears smaller in size. Dimensions are documented elsewhere. There is a small amount of bioburden. There is no sign of infection or cellulitis. Neuro oriented x3, CN's II-XII intact bilaterally, moves all extremities and no focal motor deficits Sensorium / Orientation: awake, alert, oriented to person, oriented to place andoriented to time Psych Appearance: grossly normal and appropriate Attitude: calm Activity / Motor Behavior: appropriate eye contact Speech: normal speech Mood & Affect: euthymic mood Thought Process: normal thought process Thought Content: normal thought content Attention / Concentration: attention grossly intact Debridement Note Debridement Note Wound debrided: Left pretibial traumatic wound Laterality: Left Type of Debridement: Excisional debridement Anesthesia Used: 5% Lidocaine Gel and Cetacaine Depth: Down to and including healthy tissue and in the subcutaneous layer Percentage of wound debrided: 100 Instrument Used: 3mm curette Tissue Removed: Bioburden and nonviable/necrotic tissue Severity: Fat Layer Exposed Amount of bleeding with debridement: Mild Bleeding Controlled with: Compression and gauze Patient tolerated procedure: Patient tolerated procedure well Post-Debridement Measurements and Additional Note: Post-Debridement Measurements/Treatment - Nurse 1 - General Ulcer Assessment Start: 09/09/23 08:51 Freq: Status: Active Protocol: BETHEL Activity Type Activity Date Activity User E-sign Co-sign Detail Recorded Client Recorded Date Recorded By Document 09/09/23 08:52 DL Desktop 09/09/23 08:59 DL 09/09/23 08:52 WC - Today's Visit Information Type of service 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 Yes WC - Nurse 1 - General Ulcer Measurement Start: 09/09/23 08:51 Freq: Status: Active Protocol: Activity Type Activity Date Activity User E-sign Co-sign Detail Recorded Client Recorded Date Recorded By Document 09/09/23 08:52 DL Desktop 09/09/23 08:59 DL 09/09/23 08:52 Wound Center Nurse 1 #2- L ARCHER (TRAUMA) -Current Size (cm) - Length 0.4 -Current Size (cm) - Width 0.2 -Current Size (cm) - Depth 0.2 -Total Square Cm 0.08 -Exudate Amt Small -Exudate Type Serosanguineous -Wound Margin Distinct, Outline Attached -Granulation Amt Small (1-33%) -Granulation Quality Red -Necrosis Amt Small (1-33%) -Necrotic Tissue Type Adherent Slough -Structure Exposed N/A -Texture (Jennifer-wound Skin Appearance) Scarring -Moisture (Jennifer-wound Skin Appearance) No Abnormality -Color (Jennifer-wound Skin Appearance) No Abnormality -Temperature (Jennifer-wound Skin No Abnormality Appearance) (Pt Warm) -Tenderness on Palpation (Jennifer-wound No Skin Appearance) -Ulcer Cleansing Rinsed/ Irrigated with Saline -Foul Odor after Cleansing No -Anesthetic Used 5% Lidocaine Gel Left Calf (cm) 30 Left Ankle (cm) 16.8 - Nurse 3 - General Ulcer D/C NN Start: 09/09/23 08:51 Freq: Status: Active Protocol: Activity Type Activity Date Activity User E-sign Co-sign Detail Recorded Client Recorded Date Recorded By Document 09/09/23 09:12 DL Desktop 09/09/23 09:14 DL 09/09/23 09:12 Wound Care Center Nurse 3 #2- L ARCHER (TRAUMA) -Ulcer Cleansing Rinsed/ Irrigated with Saline -Foul Odor after Cleansing No -Other Dressing hydrogel -Primary Dressing Covered/Secured with Dry Gauze, Secured with Tape -Other Covering tubigrip Treatment Response Procedure Tolerated Well Pain Scale: 0-10 Numeric Is Patient Pain Free? Yes WC - Visit Discharge Discharge Condition Stable Ambulatory Status Ambulatory Transportation Private Auto Assessment/Plan Assessment/Plan (1) Laceration of left lower leg with complication: CODE(S): S81.812A - Laceration without foreign body, left lower leg, initial encounter QUALIFIERS: Encounter type: subsequent encounter Qualified Code(s): S81.812D - Laceration without foreign body, left lower leg, subsequent encounter (2) Chronic venous insufficiency: CODE(S): I87.2 - Venous insufficiency (chronic) (peripheral) (3) Varicose veins of both lower extremities with inflammation: CODE(S): I83.11 - Varicose veins of right lower extremity with inflammation; I83.12 - Varicose veins of left lower extremity with inflammation (4) Cellulitis of left lower limb: CODE(S): L03.116 - Cellulitis of left lower limb (5) Arthritis: CODE(S): M19.90 - Unspecified osteoarthritis, unspecified site (6) History of TIA (transient ischemic attack): CODE(S): Z86.73 - Personal history of transient ischemic attack (TIA), andcerebral infarction without residual deficits (7) Osteoporosis: CODE(S): M81.0 - Age-related osteoporosis without current pathological fracture (8) Hypertension: CODE(S): I10 - Essential (primary) hypertension QUALIFIERS: Hypertension type: essential hypertension Qualified Code(s): I10 - Essential (primary) hypertension (9) GERD (gastroesophageal reflux disease): CODE(S): K21.9 - Gastro-esophageal reflux disease without esophagitis QUALIFIERS: Esophagitis presence: esophagitis presence not specified Qualified Code(s): K21.9 - Gastro-esophageal reflux disease without esophagitis (10) Hypothyroid: CODE(S): E03.9 - Hypothyroidism, unspecified QUALIFIERS: Hypothyroidism type: unspecified Qualified Code(s): E03.9 - Hypothyroidism, unspecified (11) History of left knee replacement: CODE(S): Z96.652 - Presence of left artificial knee joint (12) Hyperlipidemia: CODE(S): E78.5 - Hyperlipidemia, unspecified (13) History of carpal tunnel release: CODE(S): Z98.890 - Other specified postprocedural states (14) History of right knee surgery: CODE(S): Z98.890 - Other specified postprocedural states (15) History of breast biopsy: CODE(S): Z98.890 - Other specified postprocedural states (16) History of total left knee replacement: CODE(S): Z96.652 - Presence of left artificial knee joint PLAN: Plan This is an 87-year-old female who is active and functional. She presented with a chronic nonhealing wound to the left pretibial surface, the result of trauma approximately 3 weeks prior to her presentation. Cellulitis had developed, and appears to have resolved as a result of 2 courses of oral antibiotics. The patient has been encouraged to optimize her nutritional intake. Review of the patient's recent laboratory results reveals no significant abnormalities, with total protein and albumin to be relatively normal. We are to continue the use of collagen hydrogel topically, which will be applied by the patient on a daily basis. She has been instructed in the appropriate means of application. She isto remain active, and elevate her lower extremities as much as possible while sedentary. We are to also continue the use of Tubigrip's for the sake of compression, which will be donned on a daily basis. The patient is to return in2 weeks for reevaluation. It is anticipated that the patient may be totally healed upon her next return visit. Total time: 24 minutes 09/09/23 0919 <Electronically signed by Pan Mancia MD> Cosigner Signature (if applicable): CC: ~ Signed [facility] Work Phone: 1(108) 662-325611-21-2023 History and physical note Author Pan Mancia [facility] August 26, 2023 1:43pm Note Date/Time August 26, 2023 1:38pm [facility] [address] [place] [address] H&P Exam - Wound Care 08/26/23 1331 MR#: [id number] Acct: [id number] Name: BASHIR SYKES Rep #:[id number] : 1935 87 From: Pan Frias PCP: Dr. Sagar Horton MD Status:REG R CR Location: History of Present Illness Date of Service: 08/26/23 Chief Complaint: Laceration of the left distal lower extremity with associated cellulitis History of Wound: This is an 87-year-old female who is active and functional. She presents with a chronic, non-healing wound on the left pretibial surface, the result of a traumatic injury approximately 3 weeks prior to presentation. 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 This resulted in a laceration. She was initially seen in an urgent care facility, and a day later by her primary care physician. She developed a cellulitis, and has been treated with 2 coursesof oral antibiotics, both Keflex and doxycycline. Wound cultures were obtained,which were negative. She has been using an antibiotic ointment topically. The patient is of normal body habitus. She is active. She sleeps on a flat mattress at night. She denies a history of thromboembolic disease. Recent laboratory studies were done on June 20, 2023, with results as follows: White blood count 7.4, hemoglobin 3.8, hematocrit 43.5, platelets 214,000, sodium 143, potassium 4.1, chloride 109, BUN 20, creatinine 1.04, glucose 94, calcium 9.1, total bilirubin 0.50, ALT 29, alkaline phosphatase 83, total protein 6.6, serum albumin 3.7. 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 Home Medications levothyroxine 75 mcg tablet 75 mcg PO DAILY thyroid 07/23/13 [History Last Taken 11/13/19] calcium carbonate 500 mg-vitamin D3 10 mcg (400 unit) tablet 1 ea PO DAILY supplement 02/10/14 [History Last Taken Unknown] cyanocobalamin (vitamin B-12) 500 mcg tablet 500 mcg PO DAILY@0800 supplement 02/10/14 [History Last Taken Unknown] hydroxychloroquine 200 mg tablet 300 mg PO DAILY arthritis 05/29/19 [History Last Taken Unknown] metoprolol succinate 25 mg tablet,extended release 24 hr 25 mg PO DAILY bp/heart05/29/19 [History Last Taken Unknown] acetaminophen 325 mg tablet 650 mg (2 x 325 mg) PO Q6H PRN PRN Pain Score 1- 10/Temp > 100.7 F #100 tabs 11/15/19 [Rx Last Taken Unknown] colestipol 1 gram tablet 1 g PO BID diarrhea #180 tabs 11/14/22 [Rx Last Taken Unknown] PRAMIPEXOLE DIHYDROCHLORIDE 0.125 mg PO QHS PRN INSOMNIA 08/05/23 [History Last Taken Unknown] Allergy/AdvReac Type Severity Reaction Status Date / Time No Known Allergies Allergy Verified 08/05/23 09:21 Family History Father CVA (cerebral vascular accident) Mother CVA (cerebral vascular accident) Surgical History History of breast biopsy History of carpal tunnel release History of right knee surgery History of total left knee replacement Surgical History no surgical history Social History Smoking Status: Never smoker alcohol intake: current alcohol intake frequency: a few times a month Vital Signs Vital Signs Vital Signs: 08/26/23 10:58 Temperature 96.4 F L Temperature Source Temporal Pulse Rate 84 Blood Pressure 182/104 H Blood Pressure Mean 130 Blood Pressure Source Monitor Oxygen Delivery Method Room Air Weight Weight: 125 lb Body Mass Index (BMI) 22.8 Physical Exam Const alert, oriented x3, no apparent distress, average body habitus, no limitations, healthy appearing and well nourished General Appearance: cooperative, comfortable, well kempt and well developed Orientation / Consciousness: awake, oriented to person, oriented to place and oriented to time HEENT normocephalic, head/scalp atraumatic and hearing grossly normal bilaterally Head and Scalp: normal to inspection, normocephalic and atraumatic External Ear: external ears normal Eyes PERRL and EOMs intact bilaterally General Eye: normal appearance of both eyes Neck full ROM Resp normal respiratory effort, normal air movement, no retractions and no use of accessory muscles Effort and Inspection: able to speak in complete sentences and symmetric chest movement Extremity no calf tenderness General Extremity: Negative for clubbing or cyanosis Skin Wound Narrative: No significant swelling or edema are noted in the patient's lower extremities bilaterally. Numerous varicosities are noted in the lower extremities diffusely. Mild hemosiderin staining is noted in the gaiter areas bilaterally. A wound is noted on the left pretibial surface, which appears slightly smaller in size. Dimensions are documented elsewhere. There is a moderate amount of bioburden. There is no sign of infection or cellulitis. Neuro oriented x3, CN's II-XII intact bilaterally, moves all extremities and no focal motor deficits Sensorium / Orientation: awake, alert, oriented to person, oriented to place andoriented to time Psych Appearance: grossly normal and appropriate Attitude: calm Activity / Motor Behavior: appropriate eye contact Speech: normal speech Mood & Affect: euthymic mood Thought Process: normal thought process Thought Content: normal thought content Attention / Concentration: attention grossly intact Debridement Note Debridement Note Wound debrided: Left pretibial traumatic wound Laterality: Left Type of Debridement: Excisional debridement Anesthesia Used: 5% Lidocaine Gel and Cetacaine Depth: Down to and including healthy tissue and in the subcutaneous layer Percentage of wound debrided: 100 Instrument Used: 5mm curette Tissue Removed: Bioburden and nonviable/necrotic tissue Severity: Fat Layer Exposed Amount of bleeding with debridement: Mild Bleeding Controlled with: Compression and gauze Patient tolerated procedure: Patient tolerated procedure well Post-Debridement Measurements and Additional Note: Post-Debridement Measurements/Treatment WC - Nurse 1 - General Ulcer Assessment Start: 08/12/23 11:43 Freq: Status: Active Protocol: BETHEL Activity Type Activity Date Activity User E-sign Co-sign Detail Recorded Client Recorded Date Recorded By Document 08/12/23 11:43 RB Desktop 08/12/23 11:47 RB Document 08/26/23 10:58 GM Desktop 08/26/23 11:02 08/12/23 08/26/23 11:43 10:58 WC - Today's Visit Information Type of service Follow-up Visit Follow-up Visit (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 (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 ) ) Arrival Mode Ambulatory Ambulatory Transfer Assistance None None Patient Identification Verified (Name & Yes Yes ) Patient Requires Transmission-Based No No Precautions Height and Weight Body Mass Index (BMI) 22.8 22.8 BMI Classification Normal Normal Vital Signs Temperature (97.8 F-99.1 F) 97 F L 96.4 F L Temperature Source Temporal Temporal Pulse Rate (60-100) 72 84 Pulse Location Monitor Monitor Respiratory Rate (12-18) 18 Respiratory rate source Observation Observation Oxygen Delivery Method Room Air Blood Pressure (90/60-120/80) 132/77 H 182/104 H Blood Pressure Mean 95 130 Source Monitor Monitor Position Semi-Fowlers Blood Pressure Location Left Arm History Since Last Visit- (Skip if this is Patient's initial visit) Have you changed medications since your No No last visit? Any new allergies or adverse reactions No No Had a fall/change in ADL's that may No No increase risk of falls Signs or symptoms of abuse and/or No No neglect since last visit Have you been in the hospital since your No No last visit? Has dressing in place as prescribed Yes Yes Has compression in place as prescribed No Yes Has offloadiing in place as prescribed No No Experienced any changes in pain level or No No management Left Footwear Regular Shoe Right Footwear Regular Shoe Pain Scale: 0-10 Numeric Is Patient Pain Free? Yes Yes LEDY Fraire Nurse 1 - General Ulcer Measurement Start: 08/12/23 11:43 Freq: Status: Active Protocol: Activity Type Activity Date Activity User E-sign Co-sign Detail Recorded Client Recorded Date Recorded By Document 08/12/23 11:43 RB Desktop 08/12/23 11:47 RB Document 08/26/23 10:58 GM Desktop 08/26/23 11:02 08/12/23 08/26/23 11:43 10:58 Wound Center Nurse 1 #2- L ARCHER (TRAUMA) -Combined with other wound No No -Current Size (cm) - Length 2.7 1.4 -Current Size (cm) - Width 1.8 0.8 -Current Size (cm) - Depth 0.2 0.1 -Total Square Cm 4.86 1.12 -Epithelialization Medium 34-66% -Tunneling No No -Undermining/Tunneling No No -Circular Undermining No No -Exudate Amt Medium Small -Exudate Type Serosanguineous Serous -Wound Margin Distinct, Distinct, Outline Outline Attached Attached -Granulation Amt Medium (34-66%) Medium (34-66%) -Granulation Quality Hayes Red -Slough/Fibrin Yes Yes -Necrosis Amt Medium (34-66%) Small (1-33%) -Necrotic Tissue Type Adherent Slough Adherent Slough -Structure Exposed N/A -Texture (Jennifer-wound Skin Appearance) Assessed, Assessed Scarring -Moisture (Jennifer-wound Skin Appearance) Assessed Assessed -Color (Jennifer-wound Skin Appearance) Assessed Assessed -Temperature (Jennifer-wound Skin No Abnormality No Abnormality Appearance) (Pt Warm) (Pt Warm) -Tenderness on Palpation (Jennifer-wound No Skin Appearance) -Ulcer Cleansing Wound Cleanser Soap and Water -Foul Odor after Cleansing No No -Anesthetic Used 4% Lidocaine 5% Lidocaine Solution Gel Lower Limb Edema Present No Left Calf (cm) 31.5 Left Ankle (cm) 17.5 WC - Nurse 2 - General Ulcer CM Notes Start: 08/12/23 11:43 Freq: Status: Active Protocol: Activity Type Activity Date Activity User E-sign Co-sign Detail Recorded Client Recorded Date Recorded By Document 08/12/23 13:52 PL [id number] 08/12/23 13:53 PL Document 08/26/23 11:44 PL [id number] 08/26/23 11:45 PL 08/12/23 08/26/23 13:52 11:44 Wound Center Nurse 2 #2- L ARCHER (TRAUMA) -Time 12:00 11:06 -Correct Patient Yes Yes -Correct Side, Site, Position Yes Yes -Correct Procedure Yes Yes -Procedure Performed Yes Yes -Type of Procedure Debridement Debridement -Clinical Debridement Subcutaneous Subcutaneous -Tissue Removed Subcutaneous Subcutaneous -Post Debridement (cm) - Length 2.7 1.4 -Post Debridement (cm) - Width 1.8 0.8 -Post Debridement (cm) - Depth 0.2 0.1 -Total Square (Post) (cm) 4.86 1.12 -Area of Debridement (cm) - Length 2.7 1.4 -Area of Debridement (cm) - Width 1.8 0.8 -Total Square (Area) (cm) 4.86 1.12 -Tunneling No No -Undermining/Tunneling No No -Circular Undermining No No -Wound/Ulcer Outcome Not Healed Not Healed -Ulcer Cleansing Rinsed/ Rinsed/ Irrigated with Irrigated with Saline Saline -Foul Odor after Cleansing No No -Bioengineered Tissue No No -Bleeding Controlled with Pressure Pressure -Treatment Response Procedure Procedure Tolerated Well Tolerated Well -Debridement - Subq, 1st 20sq cm Yes Yes Pain Scale: 0-10 Numeric Is Patient Pain Free? Yes Yes - Nurse 3 - General Ulcer D/C NN Start: 08/12/23 11:43 Freq: Status: Active Protocol: Activity Type Activity Date Activity User E-sign Co-sign Detail Recorded Client Recorded Date Recorded By Document 08/12/23 12:08 Desktop 08/12/23 12:10 Document 08/26/23 11:22 Desktop 08/26/23 11:23 08/12/23 08/26/23 12:08 11:22 Wound Care Center Nurse 3 #2- L ARCHER (TRAUMA) -Ulcer Cleansing Rinsed/ Not Cleansed Irrigated with Saline -Foul Odor after Cleansing No -Primary Dressing Applied Mepilex Border C Hydrogel ($), Mepilex Border -Other Dressing hydrogel -Mepilex Border 1 1 Left -Lotion applied to leg before No compression wrap -Tubular Bandage Single Layer Single Layer -Size of Tubigrip Used Size C Size C -Size C ($) 2 1 Treatment Response Procedure Tolerated Well Pain Scale: 0-10 Numeric Is Patient Pain Free? Yes Yes Teaching: Wound Center Compression Wraps & Stockings -Person Taught Patient Patient -Teaching Method Discussion, Discussion Demonstration -Response to teaching Verbalize Verbalize understanding understanding WC - Visit Discharge Discharge Condition Stable Stable Ambulatory Status Ambulatory Ambulatory Transportation Private Auto Private Auto Medication Reconcilliation completed & No Yes provided to patient/care provider Clinical Summary of Care Provided Yes Yes Assessment/Plan Assessment/Plan (1) Laceration of left lower leg with complication: CODE(S): S81.812A - Laceration without foreign body, left lower leg, initial encounter QUALIFIERS: Encounter type: subsequent encounter Qualified Code(s): S81.812D - Laceration without foreign body, left lower leg, subsequent encounter (2) Cellulitis of left lower limb: CODE(S): L03.116 - Cellulitis of left lower limb (3) Varicose veins of both lower extremities with inflammation: CODE(S): I83.11 - Varicose veins of right lower extremity with inflammation; I83.12 - Varicose veins of left lower extremity with inflammation (4) Chronic venous insufficiency: CODE(S): I87.2 - Venous insufficiency (chronic) (peripheral) (5) Arthritis: CODE(S): M19.90 - Unspecified osteoarthritis, unspecified site (6) History of TIA (transient ischemic attack): CODE(S): Z86.73 - Personal history of transient ischemic attack (TIA), andcerebral infarction without residual deficits (7) Osteoporosis: CODE(S): M81.0 - Age-related osteoporosis without current pathological fracture (8) Hypertension: CODE(S): I10 - Essential (primary) hypertension QUALIFIERS: Hypertension type: essential hypertension Qualified Code(s): I10 - Essential (primary) hypertension (9) GERD (gastroesophageal reflux disease): CODE(S): K21.9 - Gastro-esophageal reflux disease without esophagitis QUALIFIERS: Esophagitis presence: esophagitis presence not specified Qualified Code(s): K21.9 - Gastro-esophageal reflux disease without esophagitis (10) Hypothyroid: CODE(S): E03.9 - Hypothyroidism, unspecified QUALIFIERS: Hypothyroidism type: unspecified Qualified Code(s): E03.9 - Hypothyroidism, unspecified (11) History of left knee replacement: CODE(S): Z96.652 - Presence of left artificial knee joint (12) Hyperlipidemia: CODE(S): E78.5 - Hyperlipidemia, unspecified (13) History of carpal tunnel release: CODE(S): Z98.890 - Other specified postprocedural states (14) History of right knee surgery: CODE(S): Z98.890 - Other specified postprocedural states (15) History of breast biopsy: CODE(S): Z98.890 - Other specified postprocedural states (16) History of total left knee replacement: CODE(S): Z96.652 - Presence of left artificial knee joint PLAN: Plan This is an 87-year-old female who is active and functional. She presented with a chronic nonhealing wound to the left pretibial surface, the result of trauma approximately 3 weeks prior to her presentation. Cellulitis had developed, and appears to have resolved as a result of 2 courses of oral antibiotics. The patient has been encouraged to optimize her nutritional intake. Review of the patient's recent laboratory results reveals no significant abnormalities, with total protein and albumin to be relatively normal. We are to continue the use of collagen hydrogel topically, which will be applied by the patient on a daily basis. She has been instructed in the appropriate means of application. She isto remain active, and elevate her lower extremities as much as possible while sedentary. We are to also continue the use of Tubigrip's for the sake of compression, which will be donned on a daily basis. The patient is to return in2 weeks for reevaluation. Total time: 25 minutes 08/26/23 1343 <Electronically signed by Pan Mancia MD> Cosigner Signature (if applicable): CC: ~ Signed [facility] Work Phone: [phone]) 462-907211-07-2023 History and physical note Author Pan Mancia [facility] August 12, 2023 2:30pm Note Date/Time August 12, 2023 2 :30pm [facility] [address] [place] [id number] H&P Exam - Wound Care 08/12/23 1424 MR#: [id number] Acct: [id number] Name: BASHIR SYKES Rep #:[id number] : 1935 87 From: Pan Frias PCP: Dr. Sagar Horton MD Status:REG R CR Location: History of Present Illness Date of Service: 08/12/23 Chief Complaint: Laceration of the left distal lower extremity with associated cellulitis History of Wound: This is an 87-year-old female who is active and functional. She presents with a chronic, non-healing wound on the left pretibial surface, the result of a traumatic injury approximately 3 weeks prior to presentation. 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 This resulted in a laceration. She was initially seen in an urgent care facility, and a day later by her primary care physician. She developed a cellulitis, and has been treated with 2 coursesof oral antibiotics, both Keflex and doxycycline. Wound cultures were obtained,which were negative. She has been using an antibiotic ointment topically. The patient is of normal body habitus. She is active. She sleeps on a flat mattress at night. She denies a history of thromboembolic disease. Recent laboratory studies were done on June 20, 2023, with results as follows: White blood count 7.4, hemoglobin 3.8, hematocrit 43.5, platelets 214,000, sodium 143, potassium 4.1, chloride 109, BUN 20, creatinine 1.04, glucose 94, calcium 9.1, total bilirubin 0.50, ALT 29, alkaline phosphatase 83, total protein 6.6, serum albumin 3.7. 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 Home Medications levothyroxine 75 mcg tablet 75 mcg PO DAILY thyroid 07/23/13 [History Last Taken 11/13/19] calcium carbonate 500 mg-vitamin D3 10 mcg (400 unit) tablet 1 ea PO DAILY supplement 02/10/14 [History Last Taken Unknown] cyanocobalamin (vitamin B-12) 500 mcg tablet 500 mcg PO DAILY@0800 supplement 02/10/14 [History Last Taken Unknown] hydroxychloroquine 200 mg tablet 300 mg PO DAILY arthritis 05/29/19 [History Last Taken Unknown] metoprolol succinate 25 mg tablet,extended release 24 hr 25 mg PO DAILY bp/heart05/29/19 [History Last Taken Unknown] acetaminophen 325 mg tablet 650 mg (2 x 325 mg) PO Q6H PRN PRN Pain Score 1- 10/Temp > 100.7 F #100 tabs 11/15/19 [Rx Last Taken Unknown] colestipol 1 gram tablet 1 g PO BID diarrhea #180 tabs 11/14/22 [Rx Last Taken Unknown] PRAMIPEXOLE DIHYDROCHLORIDE 0.125 mg PO QHS PRN INSOMNIA 08/05/23 [History Last Taken Unknown] Allergy/AdvReac Type Severity Reaction Status Date / Time No Known Allergies Allergy Verified 08/05/23 09:21 Family History Father CVA (cerebral vascular accident) Mother CVA (cerebral vascular accident) Surgical History History of breast biopsy History of carpal tunnel release History of right knee surgery History of total left knee replacement Surgical History no surgical history Social History Smoking Status: Never smoker alcohol intake: current alcohol intake frequency: a few times a month Vital Signs Vital Signs Vital Signs: 08/12/23 11:43 Temperature 97 F L Temperature Source Temporal Pulse Rate 72 Respiratory Rate 18 Blood Pressure 132/77 H Blood Pressure Mean 95 Blood Pressure Source Monitor Blood Pressure Position Semi-Fowlers Blood Pressure Location Left Arm Weight Weight: 125 lb Body Mass Index (BMI) 22.8 Physical Exam Const alert, oriented x3, no apparent distress, average body habitus, no limitations, healthy appearing and well nourished General Appearance: cooperative, comfortable, well kempt and well developed Orientation / Consciousness: awake, oriented to person, oriented to place and oriented to time HEENT normocephalic, head/scalp atraumatic and hearing grossly normal bilaterally Head and Scalp: normal to inspection, normocephalic and atraumatic External Ear: external ears normal Eyes PERRL and EOMs intact bilaterally General Eye: normal appearance of both eyes Neck full ROM Resp normal respiratory effort, normal air movement, no retractions and no use of accessory muscles Effort and Inspection: able to speak in complete sentences and symmetric chest movement Extremity no calf tenderness General Extremity: Negative for clubbing or cyanosis Skin Wound Narrative: No significant swelling or edema are noted in the patient's lower extremities bilaterally. Numerous varicosities are noted in the lower extremities diffusely. Mild hemosiderin staining is noted in the gaiter areas bilaterally. A wound is noted on the left pretibial surface, which appears slightly smaller in size. Dimensions are documented elsewhere. There is a moderate amount of bioburden. There is no sign of infection or cellulitis. Neuro oriented x3, CN's II-XII intact bilaterally, moves all extremities and no focal motor deficits Sensorium / Orientation: awake, alert, oriented to person, oriented to place andoriented to time Psych Appearance: grossly normal and appropriate Attitude: calm Activity / Motor Behavior: appropriate eye contact Speech: normal speech Mood & Affect: euthymic mood Thought Process: normal thought process Thought Content: normal thought content Attention / Concentration: attention grossly intact Debridement Note Debridement Note Wound debrided: Left pretibial traumatic wound Laterality: Left Type of Debridement: Excisional debridement Anesthesia Used: 5% Lidocaine Gel and Cetacaine Depth: Down to and including healthy tissue and in the subcutaneous layer Percentage of wound debrided: 100 Instrument Used: 5mm curette Tissue Removed: Bioburden and nonviable/necrotic tissue Severity: Fat Layer Exposed Amount of bleeding with debridement: Mild Bleeding Controlled with: Compression and gauze Patient tolerated procedure: Patient tolerated procedure well Post-Debridement Measurements and Additional Note: Post-Debridement Measurements/Treatment - Nurse 1 - General Ulcer Assessment Start: 08/12/23 11:43 Freq: Status: Active Protocol: LEDY.LOWEXT Activity Type Activity Date Activity User E-sign Co-sign Detail Recorded Client Recorded Date Recorded By Document 08/12/23 11:43 Desktop 08/12/23 11:47 08/12/23 11:43 - Today's Visit Information Type of service Follow-up Visit (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 ) Arrival Mode Ambulatory Transfer Assistance None Patient Identification Verified (Name & Yes ) Patient Requires Transmission-Based No Precautions Height and Weight Body Mass Index (BMI) 22.8 BMI Classification Normal Vital Signs Temperature (97.8 F-99.1 F) 97 F L Temperature Source Temporal Pulse Rate (60-100) 72 Pulse Location Monitor Respiratory Rate (12-18) 18 Respiratory rate source Observation Blood Pressure (90/60-120/80) 132/77 H Blood Pressure Mean 95 Source Monitor Position Semi-Fowlers Blood Pressure Location Left Arm History Since Last Visit- (Skip if this is Patient's initial visit) Have you changed medications since your No last visit? Any new allergies or adverse reactions No Had a fall/change in ADL's that may No increase risk of falls Signs or symptoms of abuse and/or No neglect since last visit Have you been in the hospital since your No last visit? Has dressing in place as prescribed Yes Has compression in place as prescribed No Has offloadiing in place as prescribed No Experienced any changes in pain level or No management Pain Scale: 0-10 Numeric Is Patient Pain Free? Yes - Nurse 1 - General Ulcer Measurement Start: 08/12/23 11:43 Freq: Status: Active Protocol: Activity Type Activity Date Activity User E-sign Co-sign Detail Recorded Client Recorded Date Recorded By Document 08/12/23 11:43 RB Desktop 08/12/23 11:47 RB 08/12/23 11:43 Wound Center Nurse 1 #2- L ARCHER (TRAUMA) -Combined with other wound No -Current Size (cm) - Length 2.7 -Current Size (cm) - Width 1.8 -Current Size (cm) - Depth 0.2 -Total Square Cm 4.86 -Tunneling No -Undermining/Tunneling No -Circular Undermining No -Exudate Amt Medium -Exudate Type Serosanguineous -Wound Margin Distinct, Outline Attached -Granulation Amt Medium (34-66%) -Granulation Quality Hayes -Slough/Fibrin Yes -Necrosis Amt Medium (34-66%) -Necrotic Tissue Type Adherent Slough -Structure Exposed N/A -Texture (Jennifer-wound Skin Appearance) Assessed, Scarring -Moisture (Jennifer-wound Skin Appearance) Assessed -Color (Jennifer-wound Skin Appearance) Assessed -Temperature (Jennifer-wound Skin No Abnormality Appearance) (Pt Warm) -Tenderness on Palpation (Jennifer-wound No Skin Appearance) -Ulcer Cleansing Wound Cleanser -Foul Odor after Cleansing No -Anesthetic Used 4% Lidocaine Solution Lower Limb Edema Present No WC - Nurse 2 - General Ulcer CM Notes Start: 08/12/23 11:43 Freq: Status: Active Protocol: Activity Type Activity Date Activity User E-sign Co-sign Detail Recorded Client Recorded Date Recorded By Document 08/12/23 13:52 PL [id number] 08/12/23 13:53 PL 08/12/23 13:52 Wound Center Nurse 2 #2- Umm ARCHER (TRAUMA) -Time 12:00 -Correct Patient Yes -Correct Side, Site, Position Yes -Correct Procedure Yes -Procedure Performed Yes -Type of Procedure Debridement -Clinical Debridement Subcutaneous -Tissue Removed Subcutaneous -Post Debridement (cm) - Length 2.7 -Post Debridement (cm) - Width 1.8 -Post Debridement (cm) - Depth 0.2 -Total Square (Post) (cm) 4.86 -Area of Debridement (cm) - Length 2.7 -Area of Debridement (cm) - Width 1.8 -Total Square (Area) (cm) 4.86 -Tunneling No -Undermining/Tunneling No -Circular Undermining No -Wound/Ulcer Outcome Not Healed -Ulcer Cleansing Rinsed/ Irrigated with Saline -Foul Odor after Cleansing No -Bioengineered Tissue No -Bleeding Controlled with Pressure -Treatment Response Procedure Tolerated Well -Debridement - Subq, 1st 20sq cm Yes Pain Scale: 0-10 Numeric Is Patient Pain Free? Yes - Nurse 3 - General Ulcer D/C NN Start: 08/12/23 11:43 Freq: Status: Active Protocol: Activity Type Activity Date Activity User E-sign Co-sign Detail Recorded Client Recorded Date Recorded By Document 08/12/23 12:08 Desktop 08/12/23 12:10 08/12/23 12:08 Wound Care Center Nurse 3 #2- Umm DORON (TRAUMA) -Ulcer Cleansing Rinsed/ Irrigated with Saline -Primary Dressing Applied Mepilex Border -Other Dressing hydrogel -Mepilex Border 1 Left -Tubular Bandage Single Layer -Size of Tubigrip Used Size C -Size C ($) 2 Treatment Response Procedure Tolerated Well Pain Scale: 0-10 Numeric Is Patient Pain Free? Yes Teaching: Wound Center Compression Wraps & Stockings -Person Taught Patient -Teaching Method Discussion, Demonstration -Response to teaching Verbalize understanding WC - Visit Discharge Discharge Condition Stable Ambulatory Status Ambulatory Transportation Private Auto Medication Reconcilliation completed & No provided to patient/care provider Clinical Summary of Care Provided Yes Assessment/Plan Assessment/Plan (1) Laceration of left lower leg with complication: CODE(S): S81.812A - Laceration without foreign body, left lower leg, initial encounter QUALIFIERS: Encounter type: subsequent encounter Qualified Code(s): S81.812D - Laceration without foreign body, left lower leg, subsequent encounter (2) Cellulitis of left lower limb: CODE(S): L03.116 - Cellulitis of left lower limb (3) Varicose veins of both lower extremities with inflammation: CODE(S): I83.11 - Varicose veins of right lower extremity with inflammation; I83.12 - Varicose veins of left lower extremity with inflammation (4) Chronic venous insufficiency: CODE(S): I87.2 - Venous insufficiency (chronic) (peripheral) (5) Arthritis: CODE(S): M19.90 - Unspecified osteoarthritis, unspecified site (6) History of TIA (transient ischemic attack): CODE(S): Z86.73 - Personal history of transient ischemic attack (TIA), andcerebral infarction without residual deficits (7) Osteoporosis: CODE(S): M81.0 - Age-related osteoporosis without current pathological fracture (8) Hypertension: CODE(S): I10 - Essential (primary) hypertension QUALIFIERS: Hypertension type: essential hypertension Qualified Code(s): I10 - Essential (primary) hypertension (9) GERD (gastroesophageal reflux disease): CODE(S): K21.9 - Gastro-esophageal reflux disease without esophagitis QUALIFIERS: Esophagitis presence: esophagitis presence not specified Qualified Code(s): K21.9 - Gastro-esophageal reflux disease without esophagitis (10) Hypothyroid: CODE(S): E03.9 - Hypothyroidism, unspecified QUALIFIERS: Hypothyroidism type: unspecified Qualified Code(s): E03.9 - Hypothyroidism, unspecified (11) History of left knee replacement: CODE(S): Z96.652 - Presence of left artificial knee joint (12) Hyperlipidemia: CODE(S): E78.5 - Hyperlipidemia, unspecified (13) History of carpal tunnel release: CODE(S): Z98.890 - Other specified postprocedural states (14) History of right knee surgery: CODE(S): Z98.890 - Other specified postprocedural states (15) History of breast biopsy: CODE(S): Z98.890 - Other specified postprocedural states (16) History of total left knee replacement: CODE(S): Z96.652 - Presence of left artificial knee joint PLAN: Plan This is an 87-year-old female who is active and functional. She presented with a chronic nonhealing wound to the left pretibial surface, the result of trauma approximately 3 weeks prior to her presentation. Cellulitis had developed, and appears to have resolved as a result of 2 courses of oral antibiotics. The patient has been encouraged to optimize her nutritional intake. Review of the patient's recent laboratory results reveals no significant abnormalities, with total protein and albumin to be relatively normal. We are to continue the use of collagen hydrogel topically, which will be applied by the patient on a daily basis. She has been instructed in the appropriate means of application. She isto remain active, and elevate her lower extremities while sedentary. We are to also implement the use of Tubigrip's for the sake of compression, which will be donned on a daily basis. The patient is to return in 2 weeks for reevaluation. Total time: 24 minutes 08/12/23 1430 <Electronically signed by Pan Mancia MD> Cosigner Signature (if applicable): CC: ~ Signed [facility] Work Phone: [phone] 688-914910-31-2023 History and physical note Author Pan Mancia [facility] August 05, 2023 12:28pm Note Date/Time August 05, 2023 1 2:25pm [facility] [address] [place] [id number] H&P Exam - Wound Care 08/05/23 1209 MR#: [id number] Acct: [id number] Name: BASHIR SYKES Rep #:[id number] : 1935 87 From: Pan Frias PCP: Dr. Sagar Horton MD Status:REG R CR Location: History of Present Illness Date of Service: 08/05/23 Chief Complaint: Laceration of the left distal lower extremity with associated cellulitis History of Wound: This is an 87-year-old female who is active and functional. She presents with a chronic, non-healing wound on the left pretibial surface, the result of a traumatic injury approximately 3 weeks prior to presentation. 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 This resulted in a laceration. She wasinitially seen in an urgent care facility, and a day later by her primary care physician. She developed a cellulitis, and has been treated with 2 courses of oral antibiotics, both Keflex and doxycycline. Wound cultures were obtained, which were negative. She has been using an antibiotic ointment topically. The patient is of normal body habitus. She is active. She sleeps on a flat mattress at night. She denies a history of thromboembolic disease. Recent laboratory studies were done on June 20, 2023, with results as follows: White blood count 7.4, hemoglobin 3.8, hematocrit 43.5, platelets 214,000, sodium 143, potassium 4.1, chloride 109, BUN 20, creatinine 1.04, glucose 94, calcium 9.1, total bilirubin 0.50, ALT 29, alkaline phosphatase 83, total protein 6.6, serum albumin 3.7. 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 Home Medications levothyroxine 75 mcg tablet 75 mcg PO DAILY thyroid 07/23/13 [History Last Taken 11/13/19] calcium carbonate 500 mg-vitamin D3 10 mcg (400 unit) tablet 1 ea PO DAILY supplement 02/10/14 [History Last Taken Unknown] cyanocobalamin (vitamin B-12) 500 mcg tablet 500 mcg PO DAILY@0800 supplement 02/10/14 [History Last Taken Unknown] hydroxychloroquine 200 mg tablet 300 mg PO DAILY arthritis 05/29/19 [History Last Taken Unknown] metoprolol succinate 25 mg tablet,extended release 24 hr 25 mg PO DAILY bp/heart05/29/19 [History Last Taken Unknown] acetaminophen 325 mg tablet 650 mg (2 x 325 mg) PO Q6H PRN PRN Pain Score 1- 10/Temp > 100.7 F #100 tabs 11/15/19 [Rx Last Taken Unknown] colestipol 1 gram tablet 1 g PO BID diarrhea #180 tabs 11/14/22 [Rx Last Taken Unknown] PRAMIPEXOLE DIHYDROCHLORIDE 0.125 mg PO QHS PRN INSOMNIA 08/05/23 [History Last Taken Unknown] Allergy/AdvReac Type Severity Reaction Status Date / Time No Known Allergies Allergy Verified 08/05/23 09:21 Family History Father CVA (cerebral vascular accident) Mother CVA (cerebral vascular accident) Surgical History History of breast biopsy History of carpal tunnel release History of right knee surgery History of total left knee replacement no surgical history Social History Smoking Status: Never smoker alcohol intake: current alcohol intake frequency: a few times a month Vital Signs Vital Signs Vital Signs: 08/05/23 09:01 Temperature 97.3 F L Temperature Source Temporal Pulse Rate 83 Respiratory Rate 16 Blood Pressure 172/87 H Blood Pressure Mean 115 Blood Pressure Source Monitor Blood Pressure Position Sitting Blood Pressure Location Right Arm Oxygen Delivery Method Room Air Weight Weight: 125 lb Body Mass Index (BMI) 22.8 Physical Exam Const alert, oriented x3, no apparent distress, average body habitus, no limitations, healthy appearing and well nourished General Appearance: cooperative, comfortable, well kempt and well developed Orientation / Consciousness: awake, oriented to person, oriented to place and oriented to time HEENT normocephalic, head/scalp atraumatic and hearing grossly normal bilaterally Head and Scalp: normal to inspection, normocephalic and atraumatic External Ear: external ears normal Eyes PERRL and EOMs intact bilaterally General Eye: normal appearance of both eyes Neck full ROM Resp normal respiratory effort, normal air movement, no retractions and no use of accessory muscles Effort and Inspection: able to speak in complete sentences and symmetric chest movement Extremity no calf tenderness General Extremity: Negative for clubbing or cyanosis Skin Wound Narrative: No significant swelling or edema are noted in the patient's lower extremities bilaterally. Numerous varicosities are noted in the lower extremities diffusely. Mild hemosiderin staining is noted in the gaiter areas bilaterally. Wound is noted on the left pretibial surface. Dimensions are documented elsewhere. There is a moderate amount of bioburden and nonviable tissue. Thereis no sign of infection or cellulitis. Neuro oriented x3, CN's II-XII intact bilaterally and moves all extremities Sensorium / Orientation: awake, alert, oriented to person, oriented to place andoriented to time Psych Appearance: grossly normal and appropriate Attitude: calm Activity / Motor Behavior: appropriate eye contact Speech: normal speech Mood & Affect: euthymic mood Thought Process: normal thought process Thought Content: normal thought content Attention / Concentration: attention grossly intact Debridement Note Debridement Note Wound debrided: Left pretibial traumatic wound Laterality: Left Type of Debridement: Excisional debridement Anesthesia Used: 5% Lidocaine Gel and Cetacaine Depth: Down to and including healthy tissue and in the subcutaneous layer Percentage of wound debrided: 100 Instrument Used: 5mm curette Tissue Removed: Bioburden and nonviable/necrotic tissue Severity: Fat Layer Exposed Amount of bleeding with debridement: Mild Bleeding Controlled with: Compression and gauze Patient tolerated procedure: Patient tolerated procedure well Post-Debridement Measurements and Additional Note: Post-Debridement Measurements/Treatment - Nurse 1 - General Ulcer Assessment Start: 08/05/23 09:00 Freq: Status: Active Protocol: [email or web address].[email or web address] Activity Type Activity Date Activity User E-sign Co-sign Detail Recorded Client Recorded Date Recorded By Document 08/05/23 09:01 [facility] Desktop 08/05/23 09:17 [facility] 08/05/23 09:01 - Today's Visit Information Type of service Initial Visit Arrival Mode Ambulatory Transfer Assistance None Patient Identification Verified (Name & Yes ) Height and Weight Height 5 ft 2 in Weight 125 lb Weight in Pounds 125.0 lbs Weight Measurement Method Stated by Patient Body Mass Index (BMI) 22.8 BMI Classification Normal BSA - Ivet 1.57 Vital Signs Temperature (97.8 F-99.1 F) 97.3 F L Temperature Source Temporal Pulse Rate (60-100) 83 Pulse Location Monitor Respiratory Rate (12-18) 16 Respiratory rate source Observation Oxygen Delivery Method Room Air Blood Pressure (90/60-120/80) 172/87 H Blood Pressure Mean 115 Source Monitor Position Sitting Blood Pressure Location Right Arm History Since Last Visit- (Skip if this is Patient's initial visit) Left Footwear Regular Shoe Right Footwear Regular Shoe Pain Scale: 0-10 Numeric Is Patient Pain Free? Yes Lower Extremity Assessment/ Foot Assessment/ Toe Nail Assessment Right -Posterior Tibial Palpable No -Posterior Tibial Doppler Monophasic -Dorsalis Pedis Palpable No -Dorsalis Pedis Doppler Monophasic -Extremity Color Hyperpigmented -Hair Growth on Legs No -Hair Growth on Toes No -Temperature of Extremity Cool -Other Deformity No -Prior Foot Ulcer No -Charcot Joint No -Prior Amputation No -Thick No -Discolored No -Deformed No -Improper Length & Hygeine No Left -Posterior Tibial Palpable No -Posterior Tibial Doppler Monophasic -Dorsalis Pedis Palpable No -Dorsalis Pedis Doppler Monophasic -Extremity Color Pale, Hyperpigmented -Hair Growth on Legs No -Hair Growth on Toes No -Temperature of Extremity Cool -Other Deformity No -Prior Foot Ulcer No -Charcot Joint No -Prior Amputation No -Thick No -Discolored No -Deformed No -Improper Length & Hygeine No Neuropathy Assessment Feet - Top Side and Bottom <Entered> (a) Communication Assessment Preferred language Iranian Cuff Matcher Required No Able to Read Yes Able to Write Yes Communication Tools None Right Hearing Abillity Normal Left Hearing Abillity Normal Visual Assistive Devices Glasses Teaching Assessment Preferences Verbal,Written, Audio/Visual, Demonstration Barriers to Learning None Readiness To Learn Excellent Willingness to Engage in Self Management High Activies Readiness to Engage in Self Management High Activities Anxiety Level Calm Cooperation Cooperative Perception Coherent Interest in Health Problem Asks Questions Education Importance Acknowledges Need Does Patient Smoke tobacco or other No substances Smoking Status Never smoker Is Patient Diabetic No Functional Assessment Recent Decline in Ability to Perform Denies Any Declines Culture/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 Cultural/Sabianist Needs that may affect No Treatment Plan (a) 1 - + WC - Nurse 1 - General Ulcer Measurement Start: 08/05/23 09:00 Freq: Status: Active Protocol: Activity Type Activity Date Activity User E-sign Co-sign Detail Recorded Client Recorded Date Recorded By Document 08/05/23 09:01 [facility] Desktop 08/05/23 09:17 [facility] 08/05/23 09:01 Wound Center Nurse 1 #2- L ARCHER (TRAUMA) -Combined with other wound No -Current Size (cm) - Length 1 -Current Size (cm) - Width 0.1 -Current Size (cm) - Depth 0.1 -Total Square Cm 0.1 -Date of Last Picture (Recall this 08/05/23 field) -Photo Taken Yes -Epithelialization None Present -Tunneling No -Undermining/Tunneling No -Circular Undermining No -Exudate Amt Medium -Exudate Type Serosanguineous -Wound Margin Distinct, Outline Attached -Granulation Amt Small (1-33%) -Granulation Quality Red -Slough/Fibrin Yes -Necrosis Amt Large (67-100%) -Necrotic Tissue Type Adherent Slough -Texture (Jennifer-wound Skin Appearance) Assessed, Scarring -Moisture (Jennifer-wound Skin Appearance) Assessed,Dry/ Scaly -Color (Jennifer-wound Skin Appearance) Assessed, Hemosiderin Staining -Temperature (Jennifer-wound Skin No Abnormality Appearance) (Pt Warm) -Tenderness on Palpation (Jennifer-wound No Skin Appearance) -Ulcer Cleansing Soap and Water -Foul Odor after Cleansing No -Anesthetic Used 5% Lidocaine Gel Right Calf (cm) 31.7 Right Ankle (cm) 17 Left Calf (cm) 29.2 Left Ankle (cm) 17.5 - Nurse 3 - General Ulcer D/C NN Start: 08/05/23 09:00 Freq: Status: Active Protocol: Activity Type Activity Date Activity User E-sign Co-sign Detail Recorded Client Recorded Date Recorded By Document 08/05/23 09:51 [facility] Desktop 08/05/23 09:52 [facility] 08/05/23 09:51 Wound Care Center Nurse 3 #2- L ARCHER (TRAUMA) -Ulcer Cleansing Rinsed/ Irrigated with Saline -Foul Odor after Cleansing No -Primary Dressing Applied C Hydrogel ($), Mepilex Border -Mepilex Border 3 Treatment Response Procedure Tolerated Well Pain Scale: 0-10 Numeric Is Patient Pain Free? Yes - Visit Discharge Discharge Condition Stable Ambulatory Status Ambulatory Transportation Private Auto Assessment/Plan Assessment/Plan (1) Laceration of left lower leg with complication: CODE(S): S81.812A - Laceration without foreign body, left lower leg, initial encounter QUALIFIERS: Encounter type: initial encounter Qualified Code(s): S81.812A - Laceration without foreign body, left lower leg, initial encounter (2) Cellulitis of left lower limb: CODE(S): L03.116 - Cellulitis of left lower limb (3) Varicose veins of both lower extremities with inflammation: CODE(S): I83.11 - Varicose veins of right lower extremity with inflammation; I83.12 - Varicose veins of left lower extremity with inflammation (4) Chronic venous insufficiency: CODE(S): I87.2 - Venous insufficiency (chronic) (peripheral) (5) Arthritis: CODE(S): M19.90 - Unspecified osteoarthritis, unspecified site (6) History of TIA (transient ischemic attack): CODE(S): Z86.73 - Personal history of transient ischemic attack (TIA), andcerebral infarction without residual deficits (7) Osteoporosis: CODE(S): M81.0 - Age-related osteoporosis without current pathological fracture (8) Hypertension: CODE(S): I10 - Essential (primary) hypertension QUALIFIERS: Hypertension type: essential hypertension Qualified Code(s): I10 - Essential (primary) hypertension (9) GERD (gastroesophageal reflux disease): CODE(S): K21.9 - Gastro-esophageal reflux disease without esophagitis QUALIFIERS: Esophagitis presence: esophagitis presence not specified Qualified Code(s): K21.9 - Gastro-esophageal reflux disease without esophagitis (10) Hypothyroid: CODE(S): E03.9 - Hypothyroidism, unspecified QUALIFIERS: Hypothyroidism type: unspecified Qualified Code(s): E03.9 - Hypothyroidism, unspecified (11) History of left knee replacement: CODE(S): Z96.652 - Presence of left artificial knee joint (12) Hyperlipidemia: CODE(S): E78.5 - Hyperlipidemia, unspecified (13) History of carpal tunnel release: CODE(S): Z98.890 - Other specified postprocedural states (14) History of right knee surgery: CODE(S): Z98.890 - Other specified postprocedural states (15) History of breast biopsy: CODE(S): Z98.890 - Other specified postprocedural states (16) History of total left knee replacement: CODE(S): Z96.652 - Presence of left artificial knee joint PLAN: Plan This is an 87-year-old female who is active and functional. She presented with a chronic nonhealing wound to the left pretibial surface, the result of trauma approximately 3 weeks prior to her presentation. Cellulitis had developed, and appears to have resolved as a result of 2 courses of oral antibiotics. The patient has been encouraged to optimize her nutritional intake. Review of the patient's recent laboratory results reveals no significant abnormalities, with total protein and albumin to be relatively normal. We are to implement the use of collagen hydrogel topically, which will be applied by the patient on a daily basis. She has been instructed in the appropriate means of application. She isto remain active, and elevate her lower extremities while sedentary. The patient is to return in 1 week for reevaluation. Total time: 45 minutes 08/05/23 1228 <Electronically signed by Pan Mancia MD> Cosigner Signature (if applicable): CC: ~ Signed [facility] Work Phone: [phone] 246-531805-10-2021 NoteHNO ID: [id number] Author: Hortensia Adler APRN.AUTO TRAVEL COUNSELOR Service: ? Author Type: Nurse Practitioner Type: Progress Notes Filed: 02/12/2021 10:34 AM Note Text: This note was created using [employer]. Subjective Bashir Sykes is a 85 year old female. HPI [...] plan and discharged home in stable condition. Hortensia Adler APRN.CNPBlanchard Valley Health System [facility] HospitalEvaluation note* Diagnosis Onset Date Resolution Status Microscopic colitis acute Microscopic colitis acute [facility] Work Phone: Evaluation note* Diagnosis Onset Date Resolution Status Microscopic colitis acute Microscopic colitis acute Arthritis acute History of cerebral aneurysm acute History of deep vein thrombosis acute History of patellar fracture acute History of pulmonary embolism acute History of TIA (transient ischemic attack) acute Osteoporosis acute Right leg pain acute Varicose veins of both lower extremities with inflammation acute Chronic venous insufficiency chronic GERD (gastroesophageal reflux disease) chronic History of left knee replacement chronic Hypertension chronic Hypothyroid chronic S/P AAA repair chronic [facility] Work Phone: Evaluation note* Diagnosis Onset Date Resolution Status Microscopic colitis acute Arthritis acute History of cerebral aneurysm acute History of deep vein thrombosis acute History of patellar fracture acute History of pulmonary embolism acute History of TIA (transient ischemic attack) acute Osteoporosis acute Right leg pain acute Varicose veins of both lower extremities with inflammation acute Chronic venous insufficiency chronic GERD (gastroesophageal reflux disease) chronic History of left knee replacement chronic Hypertension chronic Hypothyroid chronic S/P AAA repair chronic Laceration of right lower leg acute [facility] Work Phone: Evaluation note* Diagnosis Onset Date Resolution Status Diarrhea chronic Diarrhea chronic Forehead abrasion acute Laceration of left hand acut e Laceration of left hand acut e Laceration of left hand acut e [facility] Work Phone: Evaluation note* Diagnosis Onset Date Resolution Status Diarrhea chronic Forehead abrasion acute Laceration of left hand acut e Laceration of left hand acut e Laceration of left hand acut e [facility] Work Phone: Evaluation note* Diagnosis Onset Date Resolution Status Forehead abrasion acute Laceration of left hand acut e Laceration of left hand acut e Laceration of left hand acut e [facility] Work Phone: Evaluation note* Diagnosis Onset Date Resolution Status Diarrhea chronic [facility] Work Phone: Evaluation noteNo assessment information available [facility] Work Phone: Evaluation note* Diagnosis Onset Date Resolution Status Cervical myofascial strain a cute Contusion, nose acute Skin tear of left lower leg without complication acute [facility] Work Phone: Evaluation note* Diagnosis Onset Date Resolution Status Cervical myofascial strain a cute Contusion, nose acute Skin tear of left lower leg without complication acute Arthritis acute Cellulitis of left lower limb acute History of breast biopsy acu te History of carpal tunnel release acute History of right knee surgery acute History of TIA (transient ischemic attack) acute History of total left knee replacement acute Hyperlipidemia acute Laceration of left lower leg with complication acute Osteoporosis acute Varicose veins of both lower extremities with inflammation acute Chronic venous insufficiency chronic GERD (gastroesophageal reflux disease) chronic History of left knee replacement chronic Hypertension chronic Hypothyroid chronic [facility] Work Phone: Evaluation note* Diagnosis Onset Date Resolution Status Cervical myofascial strain a cute Contusion, nose acute Skin tear of left lower leg without complication acute Arthritis acute Cellulitis of left lower limb acute History of breast biopsy acu te History of carpal tunnel release acute History of right knee surgery acute History of TIA (transient ischemic attack) acute History of total left knee replacement acute Hyperlipidemia acute Laceration of left lower leg with complication acute Osteoporosis acute Varicose veins of both lower extremities with inflammation acute Chronic venous insufficiency chronic GERD (gastroesophageal reflux disease) chronic History of left knee replacement chronic Hypertension chronic Hypothyroid chronic Arthritis acute Cellulitis of left lower limb acute History of breast biopsy acu te History of carpal tunnel release acute History of right knee surgery acute History of TIA (transient ischemic attack) acute History of total left knee replacement acute Hyperlipidemia acute Laceration of left lower leg with complication acute Osteoporosis acute Varicose veins of both lower extremities with inflammation acute Chronic venous insufficiency chronic GERD (gastroesophageal reflux disease) chronic History of left knee replacement chronic Hypertension chronic Hypothyroid chronic [facility] Work Phone: Evaluation note* Diagnosis Onset Date Resolution Status Cervical myofascial strain a cute Contusion, nose acute Skin tear of left lower leg without complication acute Arthritis acute Cellulitis of left lower limb acute History of breast biopsy acu te History of carpal tunnel release acute History of right knee surgery acute History of TIA (transient ischemic attack) acute History of total left knee replacement acute Hyperlipidemia acute Laceration of left lower leg with complication acute Osteoporosis acute Varicose veins of both lower extremities with inflammation acute Chronic venous insufficiency chronic GERD (gastroesophageal reflux disease) chronic History of left knee replacement chronic Hypertension chronic Hypothyroid chronic Arthritis acute Cellulitis of left lower limb acute History of breast biopsy acu te History of carpal tunnel release acute History of right knee surgery acute History of TIA (transient ischemic attack) acute History of total left knee replacement acute Hyperlipidemia acute Laceration of left lower leg with complication acute Osteoporosis acute Varicose veins of both lower extremities with inflammation acute Chronic venous insufficiency chronic GERD (gastroesophageal reflux disease) chronic History of left knee replacement chronic Hypertension chronic Hypothyroid chronic Arthritis acute Cellulitis of left lower limb acute History of breast biopsy acu te History of carpal tunnel release acute History of right knee surgery acute History of TIA (transient ischemic attack) acute History of total left knee replacement acute Hyperlipidemia acute Laceration of left lower leg with complication acute Osteoporosis acute Varicose veins of both lower extremities with inflammation acute Chronic venous insufficiency chronic GERD (gastroesophageal reflux disease) chronic History of left knee replacement chronic Hypertension chronic Hypothyroid chronic [facility] Work Phone: Evaluation note* Diagnosis Onset Date Resolution Status Cervical myofascial strain a cute Contusion, nose acute Skin tear of left lower leg without complication acute Arthritis acute Cellulitis of left lower limb acute History of breast biopsy acu te History of carpal tunnel release acute History of right knee surgery acute History of TIA (transient ischemic attack) acute History of total left knee replacement acute Hyperlipidemia acute Laceration of left lower leg with complication acute Osteoporosis acute Varicose veins of both lower extremities with inflammation acute Chronic venous insufficiency chronic GERD (gastroesophageal reflux disease) chronic History of left knee replacement chronic Hypertension chronic Hypothyroid chronic Arthritis acute Cellulitis of left lower limb acute History of breast biopsy acu te History of carpal tunnel release acute History of right knee surgery acute History of TIA (transient ischemic attack) acute History of total left knee replacement acute Hyperlipidemia acute Laceration of left lower leg with complication acute Osteoporosis acute Varicose veins of both lower extremities with inflammation acute Chronic venous insufficiency chronic GERD (gastroesophageal reflux disease) chronic History of left knee replacement chronic Hypertension chronic Hypothyroid chronic Arthritis acute Cellulitis of left lower limb acute History of breast biopsy acu te History of carpal tunnel release acute History of right knee surgery acute History of TIA (transient ischemic attack) acute History of total left knee replacement acute Hyperlipidemia acute Laceration of left lower leg with complication acute Osteoporosis acute Varicose veins of both lower extremities with inflammation acute Chronic venous insufficiency chronic GERD (gastroesophageal reflux disease) chronic History of left knee replacement chronic Hypertension chronic Hypothyroid chronic Arthritis acute Cellulitis of left lower limb acute History of breast biopsy acu te History of carpal tunnel release acute History of right knee surgery acute History of TIA (transient ischemic attack) acute History of total left knee replacement acute Hyperlipidemia acute Laceration of left lower leg with complication acute Non-pressure ulcer of right lower extremity with fat layer exposed acute Osteoporosis acute Traumatic open wound of right lower leg acute Varicose veins of both lower extremities with inflammation acute Chronic venous insufficiency chronic GERD (gastroesophageal reflux disease) chronic History of left knee replacement chronic Hypertension chronic Hypothyroid chronic [facility] Work Phone: Evaluation note* Diagnosis Onset Date Resolution Status Arthritis acute Cellulitis of left lower limb acute History of breast biopsy acu te History of carpal tunnel release acute History of right knee surgery acute History of TIA (transient ischemic attack) acute History of total left knee replacement acute Hyperlipidemia acute Laceration of left lower leg with complication acute Osteoporosis acute Varicose veins of both lower extremities with inflammation acute Chronic venous insufficiency chronic GERD (gastroesophageal reflux disease) chronic History of left knee replacement chronic Hypertension chronic Hypothyroid chronic Arthritis acute Cellulitis of left lower limb acute History of breast biopsy acu te History of carpal tunnel release acute History of right knee surgery acute History of TIA (transient ischemic attack) acute History of total left knee replacement acute Hyperlipidemia acute Laceration of left lower leg with complication acute Osteoporosis acute Varicose veins of both lower extremities with inflammation acute Chronic venous insufficiency chronic GERD (gastroesophageal reflux disease) chronic History of left knee replacement chronic Hypertension chronic Hypothyroid chronic Arthritis acute Cellulitis of left lower limb acute History of breast biopsy acu te History of carpal tunnel release acute History of right knee surgery acute History of TIA (transient ischemic attack) acute History of total left knee replacement acute Hyperlipidemia acute Laceration of left lower leg with complication acute Non-pressure ulcer of right lower extremity with fat layer exposed acute Osteoporosis acute Traumatic open wound of right lower leg acute Varicose veins of both lower extremities with inflammation acute Chronic venous insufficiency chronic GERD (gastroesophageal reflux disease) chronic History of left knee replacement chronic Hypertension chronic Hypothyroid chronic Arthritis acute Cellulitis of left lower limb acute History of breast biopsy acu te History of carpal tunnel release acute History of right knee surgery acute History of TIA (transient ischemic attack) acute History of total left knee replacement acute Hyperlipidemia acute Laceration of left lower leg with complication acute Non-pressure ulcer of right lower extremity with fat layer exposed acute Osteoporosis acute Traumatic open wound of right lower leg acute Varicose veins of both lower extremities with inflammation acute Chronic venous insufficiency chronic GERD (gastroesophageal reflux disease) chronic History of left knee replacement chronic Hypertension chronic Hypothyroid chronic [facility] Work Phone: Evaluation note* Diagnosis Onset Date Resolution Status Arthritis acute Cellulitis of left lower limb acute History of breast biopsy acu te History of carpal tunnel release acute History of right knee surgery acute History of TIA (transient ischemic attack) acute History of total left knee replacement acute Hyperlipidemia acute Laceration of left lower leg with complication acute Non-pressure ulcer of right lower extremity with fat layer exposed acute Osteoporosis acute Traumatic open wound of right lower leg acute Varicose veins of both lower extremities with inflammation acute Chronic venous insufficiency chronic GERD (gastroesophageal reflux disease) chronic History of left knee replacement chronic Hypertension chronic Hypothyroid chronic Arthritis acute Cellulitis of left lower limb acute History of breast biopsy acu te History of carpal tunnel release acute History of right knee surgery acute History of TIA (transient ischemic attack) acute History of total left knee replacement acute Hyperlipidemia acute Laceration of left lower leg with complication acute Non-pressure ulcer of right lower extremity with fat layer exposed acute Osteoporosis acute Traumatic open wound of right lower leg acute Varicose veins of both lower extremities with inflammation acute Chronic venous insufficiency chronic GERD (gastroesophageal reflux disease) chronic History of left knee replacement chronic Hypertension chronic Hypothyroid [facility] Work Phone: Reason for referral (narrative)No reason for referral information availableWCleveland [facility] Work Phone: Summary Purpose Family History No Family History Records Found Relationship Condition Age at Onset Recorded Date/T julissa Unknown Family History?- Unknown November 2:09pm Family History?- Unknown December 15, 2019 10:44am Relationship Condition Age at Onset Recorded Date/T julissa father Cerebrovascular accident (CVA) Unknown mother Cerebrovascular accident (CVA) Unknown Advance Directives No Advanced Directives Records Found Advance Directive Response Recorded Date/ Time Advance Directives No December 14 10:44am Living Will Yes June 11 2:08pm Power of Airplane Patroller Yes June 11, 2020 2:08pm Advance Directive Response Recorded Date/ Time Advance Directives No December 14 9:44am Living Will Yes June 11 1:08pm Power of Airplane Patroller Yes June 11, 2020 1:08pm Advance Directive Response Recorded Date/ Time Name of Medical Power of Airplane Patroller Daniela Call March 30, 2023 8:15am Advance Directives No December 14 10:44am Living Will Yes March 30, 2023 8:15am Power of Airplane Patroller Yes March 30 8:15am Advance Directive Response Recorded Date/ Time Advance Directives No December 14 10:44am Living Will Yes March 30, 2023 8:15am Power of Airplane Patroller Yes March 30 8:15am Advance Directive Response Recorded Date/ Time Advance Directives No December 14 9:44am Living Will Yes March 30, 2023 7:15am Power of Airplane Patroller Yes March 30 7:15am Advance Directive Response Recorded Date/ Time Advance Directives No December 14 10:44am Chief Complaint and Reason for Visit Chief Complaint 3 M FU HEADACHES Diarrhea Reason for Visit Microscopic colitis Microscopic colitis Chief Complaint 3 M FU HEADACHES Diarrhea wound Reason for Visit Microscopic colitis Microscopic colitis Arthritis History of cerebral aneurysm History of deep vein thrombosis History of patellar fracture History of pulmonary embolism History of TIA (transient ischemic attack) Osteoporosis Right leg pain Varicose veins of both lower extremities with inflammation Chronic venous insufficiency GERD (gastroesophageal reflux disease) History of left knee replacement Hypertension Hypothyroid S/P AAA repair Chief Complaint Diarrhea wound LACERATION RT ANKLE PAIN- COPY PCP Reason for Visit Microscopic colitis Arthritis History of cerebral aneurysm History of deep vein thrombosis History of patellar fracture History of pulmonary embolism History of TIA (transient ischemic attack) Osteoporosis Right leg pain Varicose veins of both lower extremities with inflammation Chronic venous insufficiency GERD (gastroesophageal reflux disease) History of left knee replacement Hypertension Hypothyroid S/P AAA repair Laceration of right lower leg Chief Complaint 3 MO FU Diarrhea LEFT HAND LACERATION STITCHES OUT SUTURE REMOVAL LEFT PALM Reason for Visit Diarrhea Diarrhea Forehead abrasion Laceration of left hand Laceration of left hand Laceration of left hand Chief Complaint Diarrhea LEFT HAND LACERATION STITCHES OUT SUTURE REMOVAL LEFT PALM RT RIB PAIN Reason for Visit Diarrhea Forehead abrasion Laceration of left hand Laceration of left hand Laceration of left hand Chief Complaint LEFT HAND LACERATION STITCHES OUT SUTURE REMOVAL LEFT PALM RT RIB PAIN PAIN- COPY PCP Reason for Visit Forehead abrasion Laceration of left hand Laceration of left hand Laceration of left hand Chief Complaint PAIN- COPY PCP 2 MO FU Reason for Visit Diarrhea Chief Complaint PAIN- COPY PCP FALL Chief Complaint FALL PAIN- COPY PCP LT ANKLE CUT TDAP VACCINE Reason for Visit Cervical myofascial strain Contusion, nose Skin tear of left lower leg without complication Chief Complaint PAIN- COPY PCP LT ANKLE CUT TDAP VACCINE Reason for Visit Cervical myofascial strain Contusion, nose Skin tear of left lower leg without complication Chief Complaint PAIN- COPY PCP LT ANKLE CUT TDAP VACCINE WOUND Reason for Visit Cervical myofascial strain Contusion, nose Skin tear of left lower leg without complication Arthritis Cellulitis of left lower limb History of breast biopsy History of carpal tunnel release History of right knee surgery History of TIA (transient ischemic attack) History of total left knee replacement Hyperlipidemia Laceration of left lower leg with complication Osteoporosis Varicose veins of both lower extremities with inflammation Chronic venous insufficiency GERD (gastroesophageal reflux disease) History of left knee replacement Hypertension Hypothyroid Chief Complaint PAIN- COPY PCP LT ANKLE CUT TDAP VACCINE WOUND WOUND Reason for Visit Cervical myofascial strain Contusion, nose Skin tear of left lower leg without complication Arthritis Cellulitis of left lower limb History of breast biopsy History of carpal tunnel release History of right knee surgery History of TIA (transient ischemic attack) History of total left knee replacement Hyperlipidemia Laceration of left lower leg with complication Osteoporosis Varicose veins of both lower extremities with inflammation Chronic venous insufficiency GERD (gastroesophageal reflux disease) History of left knee replacement Hypertension Hypothyroid Arthritis Cellulitis of left lower limb History of breast biopsy History of carpal tunnel release History of right knee surgery History of TIA (transient ischemic attack) History of total left knee replacement Hyperlipidemia Laceration of left lower leg with complication Osteoporosis Varicose veins of both lower extremities with inflammation Chronic venous insufficiency GERD (gastroesophageal reflux disease) History of left knee replacement Hypertension Hypothyroid Chief Complaint PAIN- COPY PCP LT ANKLE CUT TDAP VACCINE WOUND WOUND WOUND Reason for Visit Cervical myofascial strain Contusion, nose Skin tear of left lower leg without complication Arthritis Cellulitis of left lower limb History of breast biopsy History of carpal tunnel release History of right knee surgery History of TIA (transient ischemic attack) History of total left knee replacement Hyperlipidemia Laceration of left lower leg with complication Osteoporosis Varicose veins of both lower extremities with inflammation Chronic venous insufficiency GERD (gastroesophageal reflux disease) History of left knee replacement Hypertension Hypothyroid Arthritis Cellulitis of left lower limb History of breast biopsy History of carpal tunnel release History of right knee surgery History of TIA (transient ischemic attack) History of total left knee replacement Hyperlipidemia Laceration of left lower leg with complication Osteoporosis Varicose veins of both lower extremities with inflammation Chronic venous insufficiency GERD (gastroesophageal reflux disease) History of left knee replacement Hypertension Hypothyroid Arthritis Cellulitis of left lower limb History of breast biopsy History of carpal tunnel release History of right knee surgery History of TIA (transient ischemic attack) History of total left knee replacement Hyperlipidemia Laceration of left lower leg with complication Osteoporosis Varicose veins of both lower extremities with inflammation Chronic venous insufficiency GERD (gastroesophageal reflux disease) History of left knee replacement Hypertension Hypothyroid Chief Complaint LT ANKLE CUT TDAP VACCINE WOUND WOUND WOUND WOUND Reason for Visit Cervical myofascial strain Contusion, nose Skin tear of left lower leg without complication Arthritis Cellulitis of left lower limb History of breast biopsy History of carpal tunnel release History of right knee surgery History of TIA (transient ischemic attack) History of total left knee replacement Hyperlipidemia Laceration of left lower leg with complication Osteoporosis Varicose veins of both lower extremities with inflammation Chronic venous insufficiency GERD (gastroesophageal reflux disease) History of left knee replacement Hypertension Hypothyroid Arthritis Cellulitis of left lower limb History of breast biopsy History of carpal tunnel release History of right knee surgery History of TIA (transient ischemic attack) History of total left knee replacement Hyperlipidemia Laceration of left lower leg with complication Osteoporosis Varicose veins of both lower extremities with inflammation Chronic venous insufficiency GERD (gastroesophageal reflux disease) History of left knee replacement Hypertension Hypothyroid Arthritis Cellulitis of left lower limb History of breast biopsy History of carpal tunnel release History of right knee surgery History of TIA (transient ischemic attack) History of total left knee replacement Hyperlipidemia Laceration of left lower leg with complication Osteoporosis Varicose veins of both lower extremities with inflammation Chronic venous insufficiency GERD (gastroesophageal reflux disease) History of left knee replacement Hypertension Hypothyroid Arthritis Cellulitis of left lower limb History of breast biopsy History of carpal tunnel release History of right knee surgery History of TIA (transient ischemic attack) History of total left knee replacement Hyperlipidemia Laceration of left lower leg with complication Non-pressure ulcer of right lower extremity with fat layer exposed Osteoporosis Traumatic open wound of right lower leg Varicose veins of both lower extremities with inflammation Chronic venous insufficiency GERD (gastroesophageal reflux disease) History of left knee replacement Hypertension Hypothyroid Chief Complaint WOUND WOUND WOUND WOUND Reason for Visit Arthritis Cellulitis of left lower limb History of breast biopsy History of carpal tunnel release History of right knee surgery History of TIA (transient ischemic attack) History of total left knee replacement Hyperlipidemia Laceration of left lower leg with complication Osteoporosis Varicose veins of both lower extremities with inflammation Chronic venous insufficiency GERD (gastroesophageal reflux disease) History of left knee replacement Hypertension Hypothyroid Arthritis Cellulitis of left lower limb History of breast biopsy History of carpal tunnel release History of right knee surgery History of TIA (transient ischemic attack) History of total left knee replacement Hyperlipidemia Laceration of left lower leg with complication Osteoporosis Varicose veins of both lower extremities with inflammation Chronic venous insufficiency GERD (gastroesophageal reflux disease) History of left knee replacement Hypertension Hypothyroid Arthritis Cellulitis of left lower limb History of breast biopsy History of carpal tunnel release History of right knee surgery History of TIA (transient ischemic attack) History of total left knee replacement Hyperlipidemia Laceration of left lower leg with complication Non-pressure ulcer of right lower extremity with fat layer exposed Osteoporosis Traumatic open wound of right lower leg Varicose veins of both lower extremities with inflammation Chronic venous insufficiency GERD (gastroesophageal reflux disease) History of left knee replacement Hypertension Hypothyroid Arthritis Cellulitis of left lower limb History of breast biopsy History of carpal tunnel release History of right knee surgery History of TIA (transient ischemic attack) History of total left knee replacement Hyperlipidemia Laceration of left lower leg with complication Non-pressure ulcer of right lower extremity with fat layer exposed Osteoporosis Traumatic open wound of right lower leg Varicose veins of both lower extremities with inflammation Chronic venous insufficiency GERD (gastroesophageal reflux disease) History of left knee replacement Hypertension Hypothyroid Chief Complaint WOUND WOUND WOUND WOUND PAIN- COPY PCP Reason for Visit Arthritis Cellulitis of left lower limb History of breast biopsy History of carpal tunnel release History of right knee surgery History of TIA (transient ischemic attack) History of total left knee replacement Hyperlipidemia Laceration of left lower leg with complication Osteoporosis Varicose veins of both lower extremities with inflammation Chronic venous insufficiency GERD (gastroesophageal reflux disease) History of left knee replacement Hypertension Hypothyroid Arthritis Cellulitis of left lower limb History of breast biopsy History of carpal tunnel release History of right knee surgery History of TIA (transient ischemic attack) History of total left knee replacement Hyperlipidemia Laceration of left lower leg with complication Osteoporosis Varicose veins of both lower extremities with inflammation Chronic venous insufficiency GERD (gastroesophageal reflux disease) History of left knee replacement Hypertension Hypothyroid Arthritis Cellulitis of left lower limb History of breast biopsy History of carpal tunnel release History of right knee surgery History of TIA (transient ischemic attack) History of total left knee replacement Hyperlipidemia Laceration of left lower leg with complication Non-pressure ulcer of right lower extremity with fat layer exposed Osteoporosis Traumatic open wound of right lower leg Varicose veins of both lower extremities with inflammation Chronic venous insufficiency GERD (gastroesophageal reflux disease) History of left knee replacement Hypertension Hypothyroid Arthritis Cellulitis of left lower limb History of breast biopsy History of carpal tunnel release History of right knee surgery History of TIA (transient ischemic attack) History of total left knee replacement Hyperlipidemia Laceration of left lower leg with complication Non-pressure ulcer of right lower extremity with fat layer exposed Osteoporosis Traumatic open wound of right lower leg Varicose veins of both lower extremities with inflammation Chronic venous insufficiency GERD (gastroesophageal reflux disease) History of left knee replacement Hypertension Hypothyroid Chief Complaint WOUND WOUND PAIN- COPY PCP R10.9 Reason for Visit Arthritis Cellulitis of left lower limb History of breast biopsy History of carpal tunnel release History of right knee surgery History of TIA (transient ischemic attack) History of total left knee replacement Hyperlipidemia Laceration of left lower leg with complication Non-pressure ulcer of right lower extremity with fat layer exposed Osteoporosis Traumatic open wound of right lower leg Varicose veins of both lower extremities with inflammation Chronic venous insufficiency GERD (gastroesophageal reflux disease) History of left knee replacement Hypertension Hypothyroid Arthritis Cellulitis of left lower limb History of breast biopsy History of carpal tunnel release History of right knee surgery History of TIA (transient ischemic attack) History of total left knee replacement Hyperlipidemia Laceration of left lower leg with complication Non-pressure ulcer of right lower extremity with fat layer exposed Osteoporosis Traumatic open wound of right lower leg Varicose veins of both lower extremities with inflammation Chronic venous insufficiency GERD (gastroesophageal reflux disease) History of left knee replacement Hypertension Hypothyroid Chief Complaint Admit Date PAIN- COPY PCP December 15, 2024 1:5 4pm Chief Complaint Admit Date PAIN- COPY PCP December 15, 2024 1:5 4pm PAIN- COPY PCP March 16, 2025 9:16 am Chief Complaint Admit Date PAIN- COPY PCP March 16, 2025 9:16 am CAT SCRATCH ON L LEG May 06, 2025 7: 55am Additional Source Comments INFORMATION SOURCE (unrecogn ized section and content) DATE CREATED AUTHOR 11/07/2021 [facility] DATE CREATED AUTHOR AUTHOR'S ORGANIZ ATION 07/21/2024 [facility] DATE CREATED AUTHOR AUTHOR'S ORGANIZ ATION 05/08/2025 Dominique [facility] Goals (unrecognized section and content) Goals may be documented in a n alternate sectionGoals may be documented in an alternate sectionGoals may be documented in an alternate sectionGoals may be documented in an alternate sectionGoals may be documented in an alternate sectionGoals may be documented in an alternate sectionGoals may be documented in an alternate sectionGoals may be documented in an alternate sectionGoals may be documented in an alternate sectionGoals may be documented in an alternate sectionGoals may be documented in an alternate sectionGoals may be documented in an alternate sectionGoals may be documented in an alternate sectionGoals may be documented in an alternate sectionGoals may be documented in an alternate sectionGoals may be documented in an alternate sectionGoals may be documented in an alternate sectionGoals may be documented in an alternate sectionGoals may be documented in an alternate sectionGoals may be documented in an alternate sectionGoals may be documented in an alternate sectionGoals may be documented in an alternate sectionGoals may be documented in an alternate sectionGoals may be documented in an alternate sectionGoals may be documented in an alternate sectionGoals may be documented in an alternate sectionGoals may be documented in an alternate section Care Teams (unrecognized sec tion and content) Team Status: Active Member Role Status Dates Dr. Sagar Horton MD Family Provider Active Dr. Sagar Horton MD Primary Care Provider Active Team Status: Inactive Member Role Status Dates Dr. Sagar Horton MD Primary Care Provider, Referring Provider Active Mike Weber PA, PA Attending Provider Active Team Status: Inactive Member Role Status Dates Dr. Sagar Horton MD Primary Care Provider, Referring Provider Active Vikram TIERNEY, PA Attending Provider Active Team Status: Inactive Member Role Status Dates Dr. Sagar Horton MD Primary Care Provider, Referring Provider Active Servando Gonsales PA, PA Attending Provider Active Team Status: Inactive Member Role Status Dates Dr. Sagar Horton MD Primary Care Provider, Attending Provider Active Team Status: Inactive Member Role Status Dates Dr. Sagar Horton MD Primary Care Provi trent, Attending Provider, Referring Provider Active Team Status: Inactive Member Role Status Dates Dr. Sagar Horton MD Primary Care Provider Active Dr. Adele Rockwell MD Attending Provider, Referring Provider Active Team Status: Inactive Member Role Status Dates Dr. Sagar Horton MD Primary Care Provider, Referring Provider Active Medina Valles MANAGEMENT TRAINEE, MANAGEMENT TRAINEE-C Attending Provider Active Team Status: Active Member Role Status Dates Dr. Sagar Horton MD Primary Care Provider Active Dr. Adele Rockwell MD Attending Provider, Referring Provider Active Team Status: Inactive Member Role Status Dates Dr. Sagar Horton MD Primary Care Provider Active Dr. Jeremy Sorto DO Emergency Provider Active Team Status: Inactive Member Role Status Dates Dr. Sagar Horton MD Primary Care Provider Active Dr. Jeremy Sorto DO Attending Provider, Emergency Provider Active Team Status: Inactive Member Role Status Dates Dr. Sagar Horton MD Primary Care Provider, Referring Provider Active Dr. Pan Mancia MD Attending Provider Active Team Status: Active Member Role Status Dates Dr. Sagar Horton MD Primary Care Provider, Referring Provider Active Dr. Pan Mancia MD Attending Provider Active Team Status: Active Member Role Status Dates Dr. Sagar Horton MD Primary Care Provi trent, Attending Provider, Referring Provider Active Team Status: Inactive Member Role Status Dates Dr. Sagar Horton MD Primary Care Provider Active Start: December 15, 2024 End: December 15, 2024 Dr. Adele Rockwell MD Attending Provider Active Start: December 15, 2024 End: December 15, 2024 Dr. Adele Rockwell MD Referring Provider Active Start: December 15, 2024 End: December 15, 2024 Team Status: Inactive Member Role Status Dates Dr. Sagar Horton MD Primary Care Provider Active Start: January 13, 2025 End: January 13, 2025 Dr. Adele Rockwell MD Attending Provider Active Start: January 13, 2025 End: January 13, 2025 Dr. Adele Rockwell MD Referring Provider Active Start: January 13, 2025 End: January 13, 2025 Team Status: Inactive Member Role Status Dates Dr. Sagar Horton MD Primary Care Provider Active Start: February 17, 2025 End: February 17, 2025 Dr. Sagar Horton MD Attending Provider Active Start: February 17, 2025 End: February 17, 2025 Dr. Sagar Horton MD Referring Provider Active Start: February 17, 2025 End: February 17, 2025 Team Status: Inactive Member Role Status Dates Dr. Sagar Horton MD Primary Care Provider Active Start: March 16, 2025 End: March 16, 2025 Dr. Adele Rockwell MD Attending Provider Active Start: March 16, 2025 End: March 16, 2025 Dr. Adele Rockwell MD Referring Provider Active Start: March 16, 2025 End: March 16, 2025 Team Status: Active Member Role/Relationship Status Dates Dr. Sagar Horton MD Family Provider Active Dr. Sagar Horton MD Primary Care Provider Active Team Status: Inactive Member Role/Relationship Status Dates Dr. Sagar Horton MD Primary Care Provider Active Start: January 13, 2025 End: January 13, 2025 Dr. Adele Rockwell MD Attending Provider Active Start: January 13, 2025 End: January 13, 2025 Dr. Adele Rockwell MD Referring Provider Active Start: January 13, 2025 End: January 13, 2025 Team Status: Inactive Member Role/Relationship Status Dates Dr. Sagar Horton MD Primary Care Provider Active Start: February 17, 2025 End: February 17, 2025 Dr. Sagar Horton MD Attending Provider Active Start: February 17, 2025 End: February 17, 2025 Dr. Sagar Horton MD Referring Provider Active Start: February 17, 2025 End: February 17, 2025 Team Status: Inactive Member Role/Relationship Status Dates Dr. Sagar Horton MD Primary Care Provider Active Start: March 16, 2025 End: March 16, 2025 Dr. Adele Rockwell MD Attending Provider Active Start: March 16, 2025 End: March 16, 2025 Dr. Adele Rockwell MD Referring Provider Active Start: March 16, 2025 End: March 16, 2025 Team Status: Inactive Member Role/Relationship Status Dates Dr. Sagar Horton MD Primary Care Provider Active Start: May 06, 2025 End: May 06, 2025 Dr. Sagar Horton MD Referring Provider Active Start: May 06, 2025 End: May 06, 2025 KELSY Hill Attending Provider Active Sta rt: May 06, 2025 End: May 06, 2025 FOR RECORDS PERTAINING TO PATIENTS WHO ARE [...] BE BASED ON THE PRIMARY CLINICAL RECORDS. [facility]. provides no warranty or guarantee of the accuracy or completeness of information in this document.
== END | disposition home or self-care (01) ==
LOC: RAD 10:22
PROVIDERS: PCP Family Medicine Geriatric Medicine; Referring Provider Family Medicine Geriatric Medicine; Visit Provider Family Medicine Geriatric Medicine
DX: M25.512 Pain in left shoulder (principal)
CPT/HCPCS: 73030

== ENCOUNTER → 2025-06-29 | Outpatient (CLI) | payer MEDICARE, SELFPAY | END | disposition home or self-care (01) | LOC: POLAB3 15:22 | PROVIDERS: PCP Family Medicine Geriatric Medicine; Visit Provider Family Medicine Geriatric Medicine | DX: J98.8 Other specified respiratory disorders (principal) | CPT/HCPCS: 87631 ==

== ENCOUNTER → 2025-08-15 | Outpatient (CLI) | payer MEDICARE, SELFPAY ==
[2025-08-15 14:16] LABS: Hematocrit 43.9 % (37-47); Hemoglobin 14.0 g/dL (12.0-15.0); Immature Granulocytes Count 0.030 X10^3/uL (0.0-0.0); Mean Corp Hgb Conc 31.9 g/dL (32-36); Mean Corpuscular Volume 98.4 fL (81-99); Mean Platelet Vol. 11.5 fl (6.2-12.0); NRBC Flagged by Analyzer 0 % (0-5); Platelet Count 212 K/mm3 (150-450); RBC Distribution Width CV 14.0 % (11.6-14.6); RBC Distribution Width SD 51.0 fl (35.1-43.9); Red Blood Count 4.46 M/mm3 (4.2-5.4); White Blood Count 8.6 K/mm3 (4.4-11.0)
[2025-08-15 15:08] LABS: Cholesterol 191 mg/dL (<=200); Low Density Lipoprotein Calc. 77 mg/dL; Triglycerides 198 mg/dL; Very Low Density Lipoprotein 40 mg/dL (5-40); Vitamin D,25 Hydroxy 36.9 ng/mL (30-100); cholesterol:hdl ratio screen 2.34
[2025-08-15 15:10] LABS: AST(SGOT) 22 U/L (<=31); Alanine Aminotransfer ALT/SGPT 19 U/L (<=34); Albumin, Serum 4.2 g/dL (3.4-4.8); Alkaline Phosphatase 70 U/L (35-104); Anion Gap 10 (5-15); BUN 20 mg/dL (4-19); BUN/Creat Ratio 21.2 RATIO (10-20); Calcium,Total 9.4 mg/dL (7.6-11.0); Carbon Dioxide 27.4 mmol/L (21.0-32.0); Chloride 104 mmol/L (98-108); Globulin 2.1 g/dL (2.2-4.2); Glucose 95 mg/dL (70-99); Potassium 4.6 mmol/L (3.3-5.1)
[2025-08-15 22:03] LABS: Xtra Tube Kwok EXTRA TUBE
== END | disposition home or self-care (01) ==
LOC: POLAB3 14:02
PROVIDERS: PCP Family Medicine Geriatric Medicine; Visit Provider Family Medicine Geriatric Medicine
DX: I10 Essential (primary) hypertension (principal); E55.9 Vitamin D deficiency, unspecified; E78.5 Hyperlipidemia, unspecified
CPT/HCPCS: 36415; 80053; 80061; 82306; 84443; 85025

== ENCOUNTER 2025-08-19 07:38 | Observation (INO) | payer MEDICARE, SELFPAY ==
[2025-08-19] VITALS (15 sets, daily range): BP systolic 117–217; BP diastolic 74–126; PULSE 64–115; RESP 14–20; TEMP 36.4–36.6; O2SAT 94–98; BMI 21.2; BMI 21.7
--- NOTE | 2025-08-19 07:53 | EKG12_ITS ---
Test Reason : CP Blood Pressure : */* mmHG Vent. Rate : 71 BPM Atrial Rate : 71 BPM P-R Int : 162 ms QRS Dur : 90 ms QT Int : 406 ms P-R-T Axes : 17 -23 22 degrees QTcB Int : 441 ms Normal sinus rhythm Moderate voltage criteria for LVH, may be normal variant ( R in aVL , Moe product ) Borderline ECG Confirmed by NICOLE MICHAUD, YAMILA ([id number]), assistant editor STEFANO GOULD ([id number]) on 08/22/2025 8:15:36 AM Referred By: DMITRY Confirmed By: YAMILA RIVERA MD
--- NOTE | 2025-08-19 07:54 | ED.VIS.CHEST ---
HPI History of Present Illness Chief Complaint: Chest Pain Detail of Chief Complaint: Chest pain and back pain and left arm Informant: patient Narrative Narrative: Patient presents with chest discomfort that she noticed around 4:30 AM in the center of her chest that did not last very long. She subsequently developed discomfort in her left upper back and some numbness to her left arm. She tells me she has had some intermittent chest discomfort over the last couple weeks. She was seen by her primary care physician last week and has a stress test ordered for next week. She has no heart history otherwise. Denies recent travel or surgery. Currently rates her pain in her back as a 4 out of 10. Denies recent illness [facility] Medical History Cat scratch of right lower leg Cellulitis of right lower leg Traumatic open wound of right lower leg Non-pressure ulcer of right lower extremity with fat layer exposed Cellulitis of left lower limb Hyperlipidemia Laceration of left lower leg with complication Skin tear of left lower leg without complication Cervical myofascial strain Contusion, nose Laceration of left hand Forehead abrasion Laceration of right lower leg Arthritis Varicose veins of both lower extremities with inflammation Chronic venous insufficiency Right leg pain History of TIA (transient ischemic attack) History of cerebral aneurysm History of patellar fracture Osteoporosis History of deep vein thrombosis History of pulmonary embolism Small intestinal bacterial overgrowth Microscopic colitis Diarrhea Home Medications ?Medication ?Instructions ?Recorded ?Last Taken ?Type levothyroxine 75 mcg tablet 75 mcg PO DAILY thyroid 07/23/13 11/13/19 History calcium 500 mg (as 1 ea PO DAILY supplement 02/10/14 Unknown History carbonate)-vitamin D3 10 mcg (400 unit) tablet hydroxychloroquine 200 mg tablet 300 mg PO DAILY arthritis 05/29/19 Unknown History metoprolol succinate 25 mg 25 mg PO DAILY bp/heart 05/29/19 Unknown History tablet,extended release 24 hr acetaminophen 325 mg tablet 650 mg (2 x 325 mg) PO Q6H PRN PRN 11/15/19 Unknown Rx Pain Score 1-10/Temp > 100.7 F #100 tabs PRAMIPEXOLE DIHYDROCHLORIDE 0.125 mg PO QHS PRN INSOMNIA 08/05/23 Unknown History Boostrix Tdap 2.5 Lf unit-8 mcg-5 0.5 ml IM ONCE #1 mL 03/02/24 Unknown Clinic Lf/0.5 mL intramuscular syringe (diphth,pertus(acell),tetanus) biotin 1 mg capsule 1 mg PO DAILY 06/18/24 Unknown History magnesium glycinate 100 mg (as 100 mg PO DAILY 06/18/24 Unknown History glycinate) tablet (Mag Glycinate) Allergy/AdvReac Type Severity Reaction Status Date / Time No Known Allergies Allergy Verified 08/19/25 07:42 Family History Father CVA (cerebral vascular accident) Mother CVA (cerebral vascular accident) Surgical History History of total left knee replacement History of breast biopsy History of right knee surgery History of carpal tunnel release Social History Smoking Status: Never smoker alcohol intake: current alcohol intake frequency: a few times a month ROS ROS ED Review of Systems ROS Unobtainable: other Constitutional Constitutional ED: Reports lethargy; Denies chills, fever(s), sweats or weight loss Eyes Eyes: Denies blurry vision, change in vision or diplopia ENT ENT ED: Denies rhinorrhea or sore throat Cardiovascular Cardiovascular: Reports chest pain; Denies orthopnea or racing heartbeat Respiratory/Chest Respiratory/Chest: Denies cough, dyspnea, dyspnea on exertion, orthopnea or sputum Gastrointestinal Gastrointestinal: Denies abdominal pain, diarrhea, nausea or vomiting Genitourinary Genitourinary ED: Denies dysuria, hematuria or urinary frequency Musculoskeletal Musculoskeletal: Reports back pain; Denies arthralgias, myalgias or neck pain Integumentary Denies abscess, Abrasions or rash Neurologic Neurologic: Denies headache(s) or weakness Psychiatric Psychiatric: Denies anxiety, depression or suicidal thoughts Endocrine Endocrinology: Denies polydipsia, polyphagia or polyuria Hematologic/Lymphatic Hematologic/Lymphatic: Denies easy bleeding, easy bruising or lymphadenopathy Allergic/Immunologic Allergic/Immunologic ED: Denies mouth swelling, tongue swelling or urticaria EXAM Physical Exam Const Vital Signs: 08/19/25 07:40 08/19/25 07:53 08/19/25 08:32 Temperature 98 F Temperature Source Oral Pulse Rate 71 Respiratory Rate 18 Blood Pressure 138/114 H 163/85 H Blood Pressure Mean 122 Pulse Ox 97 Oxygen Delivery Method Room Air Room Air 08/19/25 08:40 08/19/25 08:44 Temperature Temperature Source Pulse Rate 71 72 Respiratory Rate 16 Blood Pressure 163/85 H 117/99 H Blood Pressure Mean 111 Pulse Ox 98 Oxygen Delivery Method Positive well nourished and well developed General Appearance ED: well developed and NAD HEENT Reports TM's clear and moist mucous membranes normocephalic and atraumatic; Negative for trauma or tenderness Tympanic Membrane ED: Yes TM's clear Eyes PERRL and EOMs intact bilaterally General Eye ED: Negative for pale conjunctiva or scleral icterus Neck no lymphadenopathy, supple and no JVD General: Negative for tenderness Chest Wall inspection of chest normal and palpation of chest normal Chest: Negative for tenderness Resp normal respiratory effort and clear to auscultation bilaterally Effort and Inspection: Negative for respiratory distress or pain with movement Auscultation: Negative for rhonchi, wheezes or diminished lung sounds Cardio regular rate, regular rhythm, S1 normal heart sound, S2 normal heart sound and no murmurs Peripheral Pulses: pulses 2+ throughout GI normal to inspection, nondistended, normoactive bowel sounds, soft to palpation, non-tender, non-distended and no masses Back/Spine no CVA tenderness and no thoracic nor lumbar tenderness Extremity normal to inspection General Extremety ED: Negative for edema General Extremity: Negative for edema Neuro oriented x3, CN's II-XII intact bilaterally, no sensory deficits noted and gait normal Sensorium / Orientation: awake, alert, oriented to person, oriented to place and oriented to time Motor Exam: strength 5/5 throughout and strength abnormal Psych mental status grossly normal Skin no rashes or lesions noted and no wounds Heart Score History: Moderately Suspicious ECG: Nonspecific Repolarization Age: >/= 65 years Risk Factors: 1 or 2 Risk Factors Troponin: >1 - <3 Normal Limit Score: 6 MDM MDM MDM Narrative Medical decision making narrative: Patient presents with chest pain she has had off-and-on for couple of weeks. She saw her primary care physician who ordered outpatient stress test to be done next week. This morning she woke up with some chest discomfort that radiated to her back and numbness in her left arm. This been ongoing for several hours. Presents for evaluation. She rates the pain in her back as a 3-4 out of 10. She denies recent travel or surgery. EKG obtained on arrival showed sinus rhythm with rate of 71 bpm with moderate LVH. CBC with differential showing a 7.3 with hemoglobin 13.6 and platelet count of 185. Chemistries unremarkable. Troponin was elevated at 36. While in the department she received 2 nitroglycerin tablets that which resolved her pain and her numbness in her left arm. She had a Nitropaste placed to the anterior chest wall. Patient had already taken a full dose aspirin and therefore none was given here. 1 view chest x-ray was unremarkable. Will discuss case with hospitalist to evaluate for admission for concern over acute coronary syndrome Lab Data Attestation: I reviewed the patient's lab results. Labs: Laboratory Results - last 24 hr 08/19/25 07:55 WBC 7.3 RBC 4.31 Hgb 13.6 Hct 41.7 MCV 96.8 MCH 31.6 MCHC 32.6 RDW Std Deviation 48.7 H RDW Coeff of Pj 13.6 Plt Count 185 MPV 11.4 Immature Gran % (Auto) 0.400 Neut % (Auto) 64.6 Lymph % (Auto) 21.4 [place] % (Auto) 9.0 Eos % (Auto) 3.8 Baso % (Auto) 0.8 Absolute Neuts (auto) 4.7 Absolute Lymphs (auto) 1.57 Nucleated RBC % 0 Sodium 136 Potassium 4.1 Chloride 104 Carbon Dioxide 21.0 Anion Gap 11 BUN 17 Creatinine 0.78 Estim Creat Clear Calc 37.71 L Est GFR (MDRD) Non-Af 72 BUN/Creatinine Ratio 21.5 H Glucose 102 H Calcium 8.8 Troponin T High Sens 36 H Radiography Diagnostic Testing: Clinical Impression(s) from Imaging Studies Chest X-Ray 08/19/25 07:55 IMPRESSION: Mild cardiac enlargement. No acute cardiopulmonary process. Reading Location: [facility] 1 view chest x-ray obtained interpreted by myself as no evidence of infiltrate or pneumothorax or acute disease process. Radiology felt there was mild cardiac enlargement otherwise no acute process. EKG Initial EKG: Attestation: I personally reviewed and interpreted this EKG as follows: Comments: Sinus rhythm with rate of 71 bpm with left ventricular hypertrophy. Discharge Plan Dx/Rx/DC Orders Clinical Impression: Chest pain, Elevated troponin, ACS (acute coronary syndrome) Disposition Disposition: Acute Care Hospital [facility]
--- NOTE | 2025-08-19 07:55 | RAD_ITS ---
PROCEDURE: CHEST 1 VIEW (PORTABLE) 08/19/2025 REASON FOR EXAM: CHEST PAIN TECHNIQUE: Frontal view of the chest. COMPARISON: March 30, 2023 FINDINGS: Hardware: EKG leads. IVC filter. Heart: Heart size is mildly enlarged. Aorta is atherosclerotic and tortuous. Lungs: The lungs are clear. Bones: Degenerative changes are identified within the thoracic spine. Right shoulder osteoarthritis. RAD/Chest 1 View (Portable) IMPRESSION: Mild cardiac enlargement. No acute cardiopulmonary process. Reading Location: [id number]
[2025-08-19 08:03] LABS: Hematocrit 41.7 % (37-47); Hemoglobin 13.6 g/dL (12.0-15.0); Immature Granulocytes Count 0.030 X10^3/uL (0.0-0.0); Mean Corp Hgb Conc 32.6 g/dL (32-36); Mean Corpuscular Volume 96.8 fL (81-99); Mean Platelet Vol. 11.4 fl (6.2-12.0); NRBC Flagged by Analyzer 0 % (0-5); Platelet Count 185 K/mm3 (150-450); RBC Distribution Width CV 13.6 % (11.6-14.6); RBC Distribution Width SD 48.7 fl (35.1-43.9); Red Blood Count 4.31 M/mm3 (4.2-5.4); White Blood Count 7.3 K/mm3 (4.4-11.0)
[2025-08-19] MEDS: 0.9% Normal Saline (1000mL) 1,000 ML 150 ML IV (08:06)
[2025-08-19] MEDS: Nitroglycerin SL (ED/IMG/CATH) 0.4 MG TABLET SL ×2 (08:32→08:44)
[2025-08-19 09:00] LABS: Anion Gap 11 (5-15); BUN 17 mg/dL (4-19); BUN/Creat Ratio 21.5 RATIO (10-20); Calcium,Total 8.8 mg/dL (7.6-11.0); Carbon Dioxide 21.0 mmol/L (21.0-32.0); Chloride 104 mmol/L (98-108); Estimated Creatinine Clearance 37.71 ml/min (50-250); Glucose 102 mg/dL (70-99); Potassium 4.1 mmol/L (3.3-5.1); Troponin T High Sensitivity 36 ng/L (<=14)
[2025-08-19 09:13] LABS: D-Dimer Quantitative (DVT/PE) 0.54 FEU/ug/m (0.27-0.49)
[2025-08-19] MEDS: Nitroglycerin Oint 1 INCH PACKET TD (09:17)
--- NOTE | 2025-08-19 09:20 | PCM.HP.STD ---
HPI - General General Date of Admission: 08/19/25 Date of Service: 08/19/25 Chief Complaint: chest pain HPI Narrative BOGDAN SYKES, is a 89 F with a PMH as outlined who presents via the ED on 08/19/2025 with a complaint of chest pain which had been intermittent for 2 weeks prior to admission. She says her symptoms initially started as left arm pain which radiated to her left shoulder but was not chest pain per se. She saw her PCP and an outpatient stress test was ordered which she has not done yet. SHe woke up with this morning with chest pain which radiated to her back and left arm which had been ongoing for several hours. She denied any lightheadedness, palpitations, nausea, vomiting or any other symptoms. Review of systems was otherwise negative. Vitals in the ED were BP of 133/74, RR of 16, NV of 68 and she was saturating at 98% on room air. CBC showed hb of 13.6, wbc of 7.3 and platelets of 185. D dimer was 0.54. Chemistry showed sodium of 136, potassium of 4.1, bicarb of 21 and Cr of 0.78. Initial troponin was 36. EKG showed no acute ST changes. She is being admitted to be managed for chest pain to rule out ACS. [facility] Medical History Cat scratch of right lower leg Cellulitis of right lower leg Traumatic open wound of right lower leg Non-pressure ulcer of right lower extremity with fat layer exposed Cellulitis of left lower limb Hyperlipidemia Laceration of left lower leg with complication Skin tear of left lower leg without complication Cervical myofascial strain Contusion, nose Laceration of left hand Forehead abrasion Laceration of right lower leg Arthritis Varicose veins of both lower extremities with inflammation Chronic venous insufficiency Right leg pain History of TIA (transient ischemic attack) History of cerebral aneurysm History of patellar fracture Osteoporosis History of deep vein thrombosis History of pulmonary embolism Small intestinal bacterial overgrowth Microscopic colitis Diarrhea Home Medications ?Medication ?Instructions ?Recorded ?Last Taken ?Type levothyroxine 75 mcg tablet 75 mcg PO DAILY thyroid 07/23/13 08/19/25 History calcium 500 mg (as 1 ea PO DAILY supplement 02/10/14 08/18/25 History carbonate)-vitamin D3 10 mcg (400 unit) tablet hydroxychloroquine 200 mg tablet 300 mg PO DAILY arthritis 05/29/19 08/18/25 History metoprolol succinate 25 mg 25 mg PO DAILY bp/heart 05/29/19 08/18/25 History tablet,extended release 24 hr acetaminophen 325 mg tablet 650 mg (2 x 325 mg) PO Q6H PRN PRN 11/15/19 Unknown Rx Pain Score 1-10/Temp > 100.7 F #100 tabs PRAMIPEXOLE DIHYDROCHLORIDE 0.125 mg PO QHS PRN INSOMNIA 08/05/23 08/18/25 History biotin 1 mg capsule 1 mg PO DAILY 06/18/24 Unknown History magnesium glycinate 100 mg (as 100 mg PO DAILY 06/18/24 Unknown History glycinate) tablet (Mag Glycinate) Allergy/AdvReac Type Severity Reaction Status Date / Time No Known Allergies Allergy Verified 08/19/25 07:42 Family History Father CVA (cerebral vascular accident) Mother CVA (cerebral vascular accident) Surgical History History of total left knee replacement History of breast biopsy History of right knee surgery History of carpal tunnel release Social History Smoking Status: Never smoker alcohol intake: current alcohol intake frequency: a few times a month ROS Constitutional Constitutional: Denies anorexia, chills, fatigue, fever(s), malaise or weakness Eyes Eyes: Denies change in vision ENT HEENT: Denies dysphagia, headache(s) or sore throat Cardiovascular Cardiovascular: Reports chest pain; Denies dyspnea on exertion, edema, lightheadedness, orthopnea, palpitations, paroxysmal nocturnal dyspnea, rapid heart rate or syncope Respiratory/Chest Respiratory/Chest: Denies cough, dyspnea, shortness of breath at rest or shortness of breath with exertion Gastrointestinal Gastrointestinal: Denies abdominal pain, diarrhea, melena, nausea or vomiting Genitourinary Genitourinary: Denies dysuria Neurologic Neurologic: Denies confusion, dizziness, focal weakness, headache(s), numbness, paresthesias, seizures or syncope Psychiatric Psychiatric: Denies anxiety or depression Vital Signs Vital Signs Vital Signs: 08/19/25 07:40 08/19/25 07:53 08/19/25 08:32 Temperature 98 F Temperature Source Oral Pulse Rate 71 Respiratory Rate 18 Blood Pressure 138/114 H 163/85 H Blood Pressure Mean 122 Pulse Ox 97 Oxygen Delivery Method Room Air Room Air 08/19/25 08:40 08/19/25 08:44 08/19/25 09:00 Temperature Temperature Source Pulse Rate 71 72 70 Respiratory Rate 16 16 Blood Pressure 163/85 H 117/99 H 117/98 H Blood Pressure Mean 111 104 Pulse Ox 98 98 Oxygen Delivery Method 08/19/25 09:17 Temperature Temperature Source Pulse Rate 68 Respiratory Rate Blood Pressure 133/74 H Blood Pressure Mean Pulse Ox Oxygen Delivery Method Weight Weight: 116 lb 6.465 oz Body Mass Index (BMI) 21.2 Physical Exam Const alert, oriented x3 and no apparent distress General Appearance: cooperative HEENT normocephalic, head/scalp atraumatic, hearing grossly normal bilaterally, moist oral mucous membranes and oropharynx normal Mouth: oral and palatal mucosa normal Eyes EOMs intact bilaterally and conjunctivae normal Neck supple Resp normal respiratory effort, no retractions, no use of accessory muscles and clear to auscultation bilaterally Cardio regular rate, regular rhythm, S1 normal heart sound, S2 normal heart sound and no murmurs GI normal to inspection, nondistended, normoactive bowel sounds, soft to palpation and non-tender Extremity normal to inspection, full ROM and no clubbing, cyanosis or edema Neuro oriented x3, CN's II-XII intact bilaterally, moves all extremities and no focal motor deficits Sensorium / Orientation: awake and alert Motor Exam: strength 5/5 throughout Psych affect normal Results Lab / Micro Data 08/19/25 07:55 08/19/25 07:55 Labs: Laboratory Results - last 24 hr 08/19/25 07:55: WBC 7.3, RBC 4.31, Hgb 13.6, Hct 41.7, MCV 96.8, MCH 31.6, MCHC 32.6, RDW Std Deviation 48.7 H, RDW Coeff of Pj 13.6, Plt Count 185, MPV 11.4, Immature Gran % (Auto) 0.400, Neut % (Auto) 64.6, Lymph % (Auto) 21.4, [place] % (Auto) 9.0, Eos % (Auto) 3.8, Baso % (Auto) 0.8, Absolute Neuts (auto) 4.7, Absolute Lymphs (auto) 1.57, Nucleated RBC % 0, D-Dimer Quant (PE/DVT) 0.54 H*, Sodium 136, Potassium 4.1, Chloride 104, Carbon Dioxide 21.0, Anion Gap 11, BUN 17, Creatinine 0.78, Estim Creat Clear Calc 37.71 L, Est GFR (MDRD) Non-Af 72, BUN/Creatinine Ratio 21.5 H, Glucose 102 H, Calcium 8.8, Troponin T High Sens 36 H Imaging Radiology Impression Chest X-Ray 08/19/25 07:55 IMPRESSION: Mild cardiac enlargement. No acute cardiopulmonary process. Reading Location: [id number] Assessment & Plan Assessment/Plan (1) Elevated troponin: (2) Chest pain: PLAN: Plan #CHest pain to rule out ACS admit to PCU admitted with a complaint of intermittent chest pain which had been going on for about 2 weeks. EKG showed no acute ST changes. Initial troponin was 36. SL nitroglycerin prn. Cycle troponins for stress test if troponins dont trend upwards. PO aspirin 81mg daily #Hypothyroidism: on synthroid #Hypertension: on metoprolol. IV hydralazine as needed #restless leg syndrome: on pramipexole DVT prophylaxis: COde status: Full code Patient counseled extensively about different types of CODE STATUS including full code, DNR CCA and DNR CCA. Patient elects to be full code. Total [id number] time 16 minutes. Charges/Coding Visit Charges Inpatient E&M: 65869 Init Hosp L2 Procedures Hospitalists Procedures: 97214 Advncd Care Plan 30 Min
[2025-08-19 10:36] LABS: Troponin T High Sens 2 HR 32 ng/L (<=14)
--- NOTE | 2025-08-19 10:48 | ECHOD_ITS ---
Reason For Study Reason For Study: CHEST PAIN Procedure This was a 2D Doppler, Color Flow transthoracic echocardiogram. Exam performed in department. Left Ventricle Normal LV size. Sigmoid septum. The estimated ejection fraction is 70 %. Unable to assess diastolic dysfunction. No regional wall motion abnormalities noted. Right Ventricle Normal RV size. Normal systolic function. Atria The left atrium is moderately enlarged. Normal right atrium. No doppler evidence for ASD. Mitral Valve There is moderate mitral annular calcification. There is no mitral valve stenosis. Trivial mitral valve insufficiency. Tricuspid Valve There is no tricuspid stenosis. Trivial tricuspid valve insufficiency. Pulmonary artery systolic pressure is 30 mmHg. Aortic Valve Trisinus/trileaflet aortic valve. Moderate diffuse aortic valve thickening. Mild aortic stenosis. Trivial aortic valve insufficiency. Pulmonic Valve There is no pulmonic valvular stenosis. Trivial pulmonic valve insufficiency. Great Vessels Normal sized aortic root. Pericardium/Pleural No pericardial effusion. MMode/2D Measurements & Calculations LVIDd: 4.2 cm IVSd: 0.92 cm LVOT diam: 2.0 cm LVIDs: 1.8 cm LVPWd: 0.92 cm LVOT area: 3.1 cm2 RVDd: 3.7 cm FS: 58.4 % Ao root diam: 3.5 cm LAV(MOD-bp): 61.3 ml LVAd ap4: 18.8 cm2 LAV(MOD-bp) Indexed: 40.2 ml/m2 LVLd ap4: 6.5 cm LAV(MOD-sp2): 58.4 ml EDV(MOD-sp4): 45.6 ml LAV(MOD-sp4): 62.7 ml EDV(sp4-el): 46.0 ml LVAs ap4: 9.7 cm2 LVLs ap4: 5.2 cm ESV(MOD-sp4): 16.6 ml ESV(sp4-el): 15.3 ml EF(MOD-sp4): 63.6 % EF(sp4-el): 66.7 % LVAd ap2: 19.5 cm2 SV(MOD-sp4): 29.0 ml SV(MOD-sp2): 34.2 ml LVLd ap2: 6.6 cm SI(MOD-sp4): 19.0 ml/m2 SI(MOD-sp2): 22.4 ml/m2 EDV(MOD-sp2): 49.6 ml EDV(sp2-el): 49.1 ml LVAs ap2: 9.4 cm2 LVLs ap2: 5.2 cm ESV(MOD-sp2): 15.4 ml ESV(sp2-el): 14.2 ml EF(MOD-sp2): 68.9 % SV(sp4-el): 30.7 ml LA dimension(2D): 4.1 cm LA A4 area: 20.6 cm2 RA A4 area: 12.3 cm2 TAPSE: 1.4 cm Time Measurements MV dec time: 0.36 sec Doppler Measurements & Calculations MV E max anupam: 56.3 cm/sec Lat Peak E' Anupam: 7.7 cm/sec Med Peak E' Anupam: 3.8 cm/sec MV A max anupam: 108.5 cm/sec E/E' lat: 7.3 E/E' med: 14.8 MV E/A: 0.52 Ao V2 max: 240.7 cm/sec LV V1 max: 96.0 cm/sec MV dec slope: 154.7 cm/sec2 Ao max P.3 mmHg LV V1 max P.7 mmHg Ao V2 mean: 178.1 cm/sec LV V1 mean P.9 mmHg Ao mean P.1 mmHg LV V1 mean: 63.7 cm/sec Ao V2 VTI: 52.9 cm LV V1 VTI: 23.6 cm AV (velocity ratio): 0.45 JOSEPHINE(I,D): 1.4 cm2 JOSEPHINE(V,D): 1.2 cm2 SV(LVOT): 73.5 ml PA V2 max: 76.3 cm/sec TR max anupam: 246.0 cm/sec TR max P.2 mmHg ECHO/Echo Complete Interpretation Summary The estimated ejection fraction is 70 %. Unable to assess diastolic dysfunction. The left atrium is moderately enlarged. Trivial mitral valve insufficiency. Mild aortic stenosis. Trivial aortic valve insufficiency. Ordering Physician: Saritha Xie Referring Physician: Sagar Horton Chi Performed By: Aura Wang RDCS
--- NOTE | 2025-08-19 14:19 | STRESSREP ---
Stress Test Report Date: 08/19/2025 Procedure: Pharmacologic stress nuclear imaging study Indications: Chest pain Consent: Per the patient Procedure: The patient underwent pharmacologic (Regadenoson) evaluation with a peak heart rate of 95 beats per minute (72%predicted maximal heart rate) and a peak blood pressure of 164/100 mmHg. The baseline ECG demonstrated normal sinus rhythm. EKG during lexiscan infusion revealed no significant ischemic changes. EKG post infusion revealed no significant ischemic changes [There were no cardiac dysrhythmias pretest, during pharmacologic infusion, or recovery]. [There was no complaint of chest discomfort during pharmacologic infusion or recovery]. The examination was discontinued secondary to completion of protocol. Impression: 1. Lexiscan stress test test is negative for Lexiscan infusion induced EKG changes of ischemia. 2. Lexiscan stress test test is negative for Lexiscan infusion induced chest pain. 3. Results of the nuclear portion of the test is as below Myocardial perfusion imaging study: Technique: The patient was injected with 12 millicuries of technetium 99m Cardiolite and subsequently rest SPECT Cardiolite nuclear imaging was obtained in the horizontal long, vertical long, and short axis views. The patient underwent pharmacologic [Regadenoson 0.4mg] evaluation. Please see above for details. The patient was injected with 33.5 millicuries of technetium 99m Cardiolite and subsequently stress SPECT Cardiolite nuclear imaging was obtained in the horizontal long, vertical long, and short axis views. A gated Cardiolite study at peak stress was obtained. Interpretation: Rest and stress SPECT Cardiolite nuclear imaging status post realignment, normalization, and attenuation correction demonstrate overall normal myocardial radioisotope uptake. There is no evidence of significant ischemia or infarction. Gated images reveal no significant regional wall motion abnormalities. The reported LVEF is greater than 70%. Impression: 1. There is no evidence of significant ischemia or infarction. 2. Estimated ejection fraction is greater than 70%. This note was generated with [employer] software. It may contain incorrect words, spelling, and punctuation that were not noted in checking the note before signing.
--- NOTE | 2025-08-19 19:50 | DCINST_ITS ---
Discharge Instructions DC O2, CPAP, BIPAP needs Home O2 Discharge instructions: No Dressing / Incision Discharge Activity: Return to Normal Activity Weight Bearing Status: Weight bearing as tolerated Dressing / Incision Call your doctor if you observe: Fever of 101 or Higher, Shortness of breath, Dizziness, Chest pain and Uncontrolled pain Follow Up Care Test Results: Test results from this visit will be discussed in further detail at your follow- up appointment, if applicable. Discharge Plan Admission Admit Date/Time: 08/19/25 09:28 Primary Reason for Your Visit: chest pain Attending Provider: Saritha Xie Primary Care Provider: Sagar Horton Chi Instructions Patient Instructions: ED Chest Pain, Noncardiac Additional Instructions / Restrictions: continue current home meds Discharge Orders/Prescriptions Prescriptions: No Action levothyroxine 75 MCG tablet 75 mcg PO DAILY Patient Comments: thyroid calcium carbonate-vitamin D3 1 EACH tablet 1 ea PO DAILY Patient Comments: supplement metoprolol succinate 25 MG tablet 25 mg PO DAILY hydroxychloroquine 200 MG tablet 300 mg PO DAILY acetaminophen 325 MG tablet 650 mg PO Q6H PRN PRN (Reason: Pain Score 1-10/Temp > 100.7 F) Qty: 100 0RF PRAMIPEXOLE DIHYDROCHLORIDE 0.125 mg PO QHS PRN Mag Glycinate 100 mg tablet 100 mg PO DAILY biotin 1 mg capsule 1 mg PO DAILY Referrals / Follow Up: Sagar Horton Chi, MD [Primary Care Provider, Geriatrics] - In 1 Week Disposition Disposition (needs filled in before D/C Order can be placed): Home, Self Care
== END 2025-08-19 20:06 | disposition home or self-care (01) ==
LOC: ED 09:26 → PCU 09:34
PROVIDERS: Admitting Provider Student in an Organized Health Care Education/Training Program; Emergency Provider Emergency Medicine; PCP Family Medicine Geriatric Medicine; Visit Provider Student in an Organized Health Care Education/Training Program
DX: R07.9 Chest pain, unspecified (principal); M54.9 Dorsalgia, unspecified; M79.602 Pain in left arm; E78.5 Hyperlipidemia, unspecified; Z86.718 Personal history of other venous thrombosis and embolism; Z86.711 Personal history of pulmonary embolism; R79.89 Other specified abnormal findings of blood chemistry; Z86.73 Personal history of transient ischemic attack (TIA), and cerebral infarction without residual deficits; E03.9 Hypothyroidism, unspecified; I10 Essential (primary) hypertension; G25.81 Restless legs syndrome
CPT/HCPCS: 71045; 78452; 80048; 84484; 85025; 85379; 93005; 93017; 93306; 96361; 96374; 99221; 99285; A9500; A4216; G0378; J2785